=== PATIENT | female | born 1945 | race Caucasian/White ===

== ENCOUNTER → 2016-10-28 | Outpatient (CLI) | payer OTHER ==
[~2016-10-28] MED LIST: ACET-1256 PO; DICL1GEL28 TOP; HYDR25TA4 PO; LACT10CA3 PO; LISI40TA PO; MULT-506 PO; NAPR1TAB9 PO; PRLSR20 PO; SIMV40TA2 PO; WHEAPOW13 PO
[2016-10-28 13:34] LABS: BASO % 0.4 %; BASO ABS # 0.04 K/uL (0-0.2); COMPLETE YES; HEMATOCRIT 40.5 % (37-47); IG% 0.3 %; LYMPH ABS # 3.26 K/uL (1.2-3.4); MEAN CELL VOLUME 87.3 fL (80-100); MEAN CORPUSCULAR HEMOGLOBIN 30.6 pg (25-34); MEAN CORPUSCULAR HGB CONC 35.1 g/dl (32-36); MEAN PLATELET VOLUME 11.5 fL (7.4-10.4); MONO % 7.3 %; PLATELET COUNT 302 K/uL (130-400); RED BLOOD COUNT 4.64 M/uL (4.2-5.4); WHITE BLOOD COUNT 9.59 K/uL (4.8-10.8)
[2016-10-28 16:56] LABS: ALT/SGPT 35 U/L (12-78); AST/SGOT 19 U/L (15-37); BLOOD UREA NITROGEN 22 mg/dl (7-18); BUN/CREATININE RATIO 23.5 (10-20); CALCIUM 9.3 mg/dl (8.5-10.1); CARBON DIOXIDE 26 mmol/L (21-32); CHLORIDE 102 mmol/L (98-107); CREATININE 0.92 mg/dl (0.60-1.20); GLUCOSE 179 mg/dl (70-99); SODIUM 138 mmol/L (136-145)
[2016-10-28 17:07] LABS: ALB/GLOB RATIO 0.9 (0.9-2); ALKALINE PHOSPHATASE 99 U/L (45-117); CHOLESTEROL 170 mg/dl (0-200); CHOLESTEROL/HDL RATIO 2.4; HDL CHOLESTEROL 70 mg/dl; LDL CHOLESTEROL CALCULATED 75 mg/dl; THYROID STIMULATING HORMONE 0.798 uIu/ml (0.300-4.500); TRIGLYCERIDES 127 mg/dl (0-150); VERY LOW DENSITY LIPOPROT CALC 25 mg/dl
== END | disposition home or self-care (01) ==
LOC: C.LABBC 09:33
PROVIDERS: ATTEND Internal Medicine
DX: G89.4 Chronic pain syndrome (principal)

== ENCOUNTER → 2016-11-29 | Outpatient (CLI) | payer OTHER ==
--- NOTE | 2016-11-29 12:40 | MAMMOGRAPHY REPORT ---
UNILATERAL LEFT DIGITAL DIAGNOSTIC MAMMOGRAM TOMOSYNTHESIS WITH CAD AND TARGETED LEFT ULTRASOUND: CLINICAL HISTORY: 6 Month Follow-up Left. TECHNIQUE: Breast tomosynthesis in addition to standard 2D mammography was performed. Current study was also evaluated with a Computer Aided Detection (CAD) system. Left CC and MLO and XCCM and 2-D and tomosynthesis images were obtained. COMPARISON: Comparison is made to exams dated: 05/26/2016 ultrasound, 05/26/2016 mammogram, 05/21/2016 mammogram, 01/18/2013 mammogram, and 10/27/2010 mammogram - [facility]. BREAST COMPOSITION: There are scattered areas of fibroglandular density in the left breast. FINDINGS: Again noted in the left breast is a low-density round mass seen on the cc view, likely at approximately 12:00, not significantly changed. Other smaller round/oval circumscribed benign-appea ring masses are also seen on the tomosynthesis images in the left subareolar and medial breast, not significantly changed. The remainder of the left breast is stable mammographically compared to prio r exams, without suspicious masses, calcifications, or areas of architectural distortion noted. Sca ttered benign-appearing calcifications are stable. Targeted ultrasound was performed of the area of the previously seen masses. In the left breast at 12:00 subareolar region, there is an oval nearly anechoic circumscribed parallel mass which measures 8 x 3 x 8 mm. This is not significantly changed compared to the prior exam and likely corresponds with the mammographic mass and is consistent with a benign cyst. Another oval anechoic benign simpl e cyst is seen in the adjacent rest measuring 3 x 5 mm. In the left 9:00 periareolar region there i s a round circumscribed hypoechoic cystic-appearing 3 x 2 mm mass, not significantly changed and lik tere represents a cyst. In the left breast at 8:00 periareolar region, there is an oval hypoechoic c ystic appearing circumscribed 8 x 7 mm mass, consistent with a cyst. An adjacent smaller cyst measu ring 4 mm is noted. No suspicious solid masses were evident. IMPRESSION: ACR BI-RADS CATEGORY 2: BENIGN, TARGETED ULTRASOUND ACR BI-RADS CATEGORY 2: BENIGN Multiple small benign cysts seen within the left breast on ultrasound, one of which correlates with the stable mammographic mass. There is no mammographic or targeted sonographic evidence of malignan cy. Return to annual mammogram screening schedule is recommended, due May 2017. The patient has been verbally notified of the results. Approximately 10% of breast cancers are not detected with mammography. A negative mammographic repor t should not delay biopsy if a clinically suggestive mass is present. Christie Hardin M.D. ah/:11/29/2016 11:19:29 Computer Publisher: Kinsey YATES(R)(M), [facility] letter sent: Normal 1/2 BI-RADS Code: ACR BI-RADS Category 2: Benign Ultrasound BI-RADS: ACR BI-RADS Category 2: Benign
== END | disposition home or self-care (01) ==
LOC: C.MAMM 09:26
PROVIDERS: ATTEND Internal Medicine
DX: Z09 Encounter for follow-up examination after completed treatment for conditions other than malignant neoplasm (principal); N60.02 Solitary cyst of left breast

== ENCOUNTER → 2017-06-07 | Outpatient (CLI) | payer OTHER ==
--- NOTE | 2017-06-08 15:59 | MAMMOGRAPHY REPORT ---
BILATERAL DIGITAL SCREENING MAMMOGRAM TOMOSYNTHESIS WITH CAD: 06/07/2017 CLINICAL HISTORY: Routine screening. Patient has no complaints. TECHNIQUE: Breast tomosynthesis in addition to standard 2D mammography was performed. Current study was also evaluated with a Computer Aided Detection (CAD) system. COMPARISON: Comparison is made to exams dated: 11/29/2016 mammogram, 05/21/2016 mammogram, 01/18/2013 nona mogram, 10/27/2010 mammogram, 09/05/2002 mammogram, and 08/29/1997 mammogram - [facility] enter. BREAST COMPOSITION: There are scattered areas of fibroglandular density in both breasts. FINDINGS: There are stable asymmetries in the left breast, and scattered benign-appearing calcificat ions in both breasts. No new suspicious mass, architectural distortion or cluster of microcalcificat ions is seen. IMPRESSION: ACR BI-RADS CATEGORY 1: NEGATIVE There is no mammographic evidence of malignancy. A 1 year screening mammogram is recommended. The pa tient will receive written notification of the results. Approximately 10% of breast cancers are not detected with mammography. A negative mammographic report should not delay biopsy if a clinically suggestive mass is present. Mindy Truong M.D. ay/:06/07/2017 17:56:45 Chimney Supervisor Brick: Kamille WHITTEN)(M), [facility] letter sent: Normal 1/2 BI-RADS Code: ACR BI-RADS Category 1: Negative
== END | disposition home or self-care (01) ==
LOC: C.MAMM 10:14
PROVIDERS: ATTEND Internal Medicine
DX: Z12.31 Encounter for screening mammogram for malignant neoplasm of breast (principal)

== ENCOUNTER → 2017-09-19 | Outpatient (CLI) | payer OTHER ==
[2017-09-19 11:42] LABS: ESTIMATED AVERAGE GLUCOSE 309 mg/dl; HA1C FLAG Normal (Normal)
[2017-09-19 14:50] LABS: ALT/SGPT 36 U/L (12-78); AST/SGOT 21 U/L (15-37); BLOOD UREA NITROGEN 19 mg/dl (7-18); BUN/CREATININE RATIO 20.2 (10-20); CALCIUM 9.1 mg/dl (8.5-10.1); CARBON DIOXIDE 27 mmol/L (21-32); CHLORIDE 95 mmol/L (98-107); CREATININE 0.94 mg/dl (0.60-1.20); GLUCOSE 320 mg/dl (70-99); SODIUM 128 mmol/L (136-145)
[2017-09-19 14:52] LABS: ALB/GLOB RATIO 0.8 (0.9-2); CHOLESTEROL 157 mg/dl (0-200); TRIGLYCERIDES 121 mg/dl (0-150); VERY LOW DENSITY LIPOPROT CALC 24 mg/dl
[2017-09-19 14:59] LABS: ALKALINE PHOSPHATASE 86 U/L (45-117); BETA-HYDROXYBUTYRATE 1.43 mg/dL (0.2-2.81); CHOLESTEROL/HDL RATIO 2.7; HDL CHOLESTEROL 59 mg/dl; LDL CHOLESTEROL CALCULATED 74 mg/dl
== END | disposition home or self-care (01) ==
LOC: C.LABBC 09:16
PROVIDERS: ATTEND Internal Medicine
DX: R73.9 Hyperglycemia, unspecified (principal)

== ENCOUNTER → 2017-11-17 | Outpatient (CLI) | payer OTHER ==
[2017-11-17 14:08] LABS: CREATININE RANDOM URINE 26.6 mg/dl
== END | disposition home or self-care (01) ==
LOC: C.LAB1850 11:51
PROVIDERS: ATTEND Internal Medicine Endocrinology, Diabetes & Metabolism
DX: E11.65 Type 2 diabetes mellitus with hyperglycemia (principal)

== ENCOUNTER → 2018-02-15 | Outpatient (CLI) | payer OTHER ==
[2018-02-15 12:15] LABS: HEMOGLOBIN A1C 6.7 % (4.5-5.6)
== END | disposition home or self-care (01) ==
LOC: C.LAB1850 09:45
PROVIDERS: ATTEND Internal Medicine Endocrinology, Diabetes & Metabolism
DX: E11.65 Type 2 diabetes mellitus with hyperglycemia (principal)

== ENCOUNTER 2022-08-17 15:29 | Inpatient (IN) ==
[2022-08-17 16:41] LABS: Basophils # (auto) 0.07 K/uL (0-0.2); Basophils % (auto) 0.7 %; Eosinophils # (auto) 0.09 K/uL (0-0.50); Eosinophils % (auto) 0.9 %; Hematocrit (blood only) 38.9 % (34.1-44.9); Hemoglobin 13.5 g/dl (12.0-16.0); Immature Granulocytes # (auto) 0.04 K/uL (0.00-0.02); Immature Granulocytes % (auto) 0.4 %; Lymphocytes # (auto) 2.12 K/uL (1.2-3.4); Mean Corpuscular Hemoglobin 29.2 pg (25.0-34.0); Mean Corpuscular Hgb Conc 34.7 g/dL (32.0-36.0); Mean Corpuscular Volume 84.2 fL (80.0-100.0); Mean Platelet Volume 9.4 fL (9.4-12.3); Monocytes % (auto) 9.9 %; Neutrophils # (auto) 6.76 K/uL (1.4-6.5); Neutrophils % (auto) 67.1 %; Platelet Count 390 K/uL (130-400); RDW Coefficient of Variation 12.9 % (11.5-14.5); RDW Standard Deviation 39.8 fL (36.4-46.3); Red Blood Count 4.62 M/uL (3.93-5.22); White Blood Count 10.08 K/ul (4.8-10.8)
[2022-08-17 16:54] LABS: Partial Thromboplastin Ratio 1.1; Partial Thromboplastin Time 29.2 Seconds (21.0-31.0); Prothrombin Time 10.8 Seconds (9.0-12.0)
[2022-08-17 17:03] LABS: Albumin Globulin Ratio 1.2 (0.9-2); Albumin Level 4.1 gm/dl (3.4-5.0); BUN Creatinine Ratio 23.9 (10-20); Bilirubin,Total 0.6 mg/dl (0.2-1.0); Calcium 10.2 mg/dl (8.5-10.1); Creatinine Clr Calc Pharmacy 71.6 ml/min; Est GFR (African American) 96.9 ml/min; Est GFR (Non-African American) 83.6 ml/min; Globulin 3.3 gm/dl (2.5-4.0); Potassium 4.3 mmol/L (3.5-5.1); Total Protein 7.4 gm/dl (6.0-8.3)
[2022-08-17] MEDS ORDERED: SODIUM CHLORIDE 0.9% 1000ML 1,000 ML IV ONE (19:13)
[2022-08-17] MEDS ORDERED: MoRPHine SULFATE 4 MG/ML 1 ML CARP\\VIAL IV STA (19:21)
[2022-08-17] MEDS ORDERED: ONDANSETRON INJ 2 MG/ML 2 ML VIAL IV STA (19:21)
--- NOTE | 2022-08-17 19:24 | Emergency Department Note ---
Impression & Plan Pathologic lumbar vertebral fracture, Liver lesion, Acute hyponatremia, Metastatic cancer ED Provider Note NAME: WINNIE THOMSON AGE: 77 SEX: F : 1945 ARRIVES VIA: Walk-In INFORMANT: Patient ED PROVIDER(S): Brain Stern DO CHIEF COMPLAINT: weak and back pain HPI: Patient is a 77-year-old female with a past medical history of IVAN, CKD, tubular adenoma of the colon, history of smoking, diabetes, hyperlipidemia, hypertension who presents the ER referred by PCP. Patient has been having back pain and had a CT done which showed likely metastatic disease of uncertain etiology. There is a pathological fracture of L5. She denies any headache or change in vision. No chest pain or shortness of breath. Her pain is in her bilateral back. Has been there for the past 4 to 5 months and worsening. Now is on both sides. Currently at 8 out of 10. Denies any weakness or numbness in the legs. No dysuria, urgency, or frequency. No other exacerbating or remitting factors. ROS: See above HPI for pertinent positives & negatives. A total of 10 systems reviewed and were otherwise negative. PAST MEDICAL HISTORY:See Below PAST SURGICAL HISTORY:See Below FAMILY HISTORY:See Below SOCIAL HISTORY:See Below HOME MEDICATIONS:See Below ALLERGIES:See Below VITALS:See Below PHYSICAL EXAMINATION: GENERAL: Sitting up in bed, alert, well appearing, well nourished, no distress, non-toxic EYE EXAM: normal conjunctiva. OROPHARYNX: no exudate, no erythema, lips, buccal mucosa, and tongue normal and mucous membranes are moist NECK: supple, no nuchal rigidity, no adenopathy, non-tender LUNGS: Clear to auscultation. Normal chest wall mechanics HEART: no murmurs, S1 normal and S2 normal ABDOMEN: abdomen soft, non-tender, normo-active bowel sounds, no masses, no rebound or guarding. BACK: Back is symmetrical on inspection and there is no deformity, no midline tenderness, no CVA tenderness. SKIN: no rashes and no bruising UPPER EXTREMITIES: upper extremities are grossly normal. LOWER EXTREMITIES: Flexion-extension hips, knees intact as patient ambulates without difficulty but hunched over NEURO EXAM: Normal sensorium, cranial nerves II-XII grossly intact, normal speech, no gross weakness of arms, no gross weakness of legs. MEDICAL DECISION MAKING: Patient is a 77-year-old female who presents the ER for possible metastatic cancer with a pathological fracture at L5 and hyponatremia referred in by PCP. IV was established blood work is obtained. Labs show no significant leukocytosis or anemia. INR unremarkable. BMP with mild hyponatremia 126. LFTs bilirubin was unremarkable. UA was contaminated but no urinary symptoms. Will not treat at this time. CTs were reviewed as an outpatient and showed liver lesions and likely metastatic disease. Patient was well aware of this. She was updated at bedside discussed with Dr. Ana Elkins for further evaluation. Triage Nursing notes reviewed. Limited review of prior medical records performed Vital Signs: reviewed and remarkable for HTN and tachy Differential diagnosis: Differential diagnoses includes but is not limited to lumbar radiculopathy, kidney stone, muscle strain, facture, cauda equina, mass, and disc herniation. ER treatment provided: See below Diagnostics interpreted by me: ECG: none Cardiac Monitoring: An order was placed for continuous cardiac monitoring. The monitor shows a rate of 80 with sinus rhythm. Laboratory studies: As stated above and show below. Imaging studies: CTs were reviewed in our system Consultation(s): Discussed with Ana Elkins for further evaluation Procedures: none Critical Care: None Past Med/Surg History Medical History (Updated 08/18/22 @ 00:55 by Brain Stern DO) Alcohol intoxication Blood loss History of cigarette smoking Hyperlipidemia Hypertension Hypotension Open tibial fracture Sensorineural hearing loss of both ears Type 2 diabetes mellitus Surgical History History of ankle surgery broken ankle-2014 at [facility] History of appendectomy History of hemicolectomy January 2016--[facility] History of tonsillectomy History of tubal ligation Family History Sister Primary adenocarcinoma of vagina Father Asthma Hypertension Macular degeneration Pulmonary embolism Mother Emphysema lung Brother Macular degeneration Denies family history of Ovarian cancer Prostate cancer Myocardial infarction Breast cancer Colorectal cancer Social History Smoking Status: Former smoker Tobacco Type: Cigarettes packs per day: 2; Years Smoked: 45; Smoking End Date: quit 7 years ago; Second Hand Exposure: No; Hx Alcohol Use: No (stopped 7 years ago) Hx Substance Use: No Preferred Language: Urdu Communication Ability: Effective Visual Impairment: Limited Hearing Ability: Normal Campus Recruiter Required: No Beliefs That Will Affect Care: None marital status: Current Living Situation: Spouse current occupational status: retired How many Children do You have: 2 Other Information That Helps Us Care for You: No Feels Safe at Home: Yes Safety Concerns: Feels Safe At This Time Childhood Exposure to Second-Hand Smoke: Yes caffeine: Yes (coffee 4 cups a day ) Dental Care, Regularly: Yes Physical Activity Frequency: Daily Physical Activity Frequency Comment: bicycle Seatbelt Use: always Sunscreen Use: Yes Assistive Devices: Cane, Glasses, Hearing Aid - Bilateral, Hearing Aid - Left and Walker Allergies Allergies Allergy/AdvReac Type Severity Reaction Status Date / Time No Known Allergies Allergy Verified 08/17/22 07:42 Home Meds Home Medications Medication Instructions Recorded Confirmed Lactobacillus rhamnosus GG 10 1 cap PO QAM 10/15/19 08/17/22 billion cell capsule (Culturelle) acetaminophen 500 mg tablet 1,000 mg PO QID PRN Fever Or Pain 10/15/19 08/17/22 (Tylenol Extra Strength) cranberry extract 200 mg capsule 400 mg PO DAILY 12/09/20 08/17/22 lisinopril 40 mg tablet 40 mg PO DAILY 08/17/22 08/17/22 metformin 500 mg tablet,extended 1,000 mg PO BID 08/17/22 08/17/22 release 24 hr Previous Rx's Medication Instructions Recorded simvastatin 40 mg tablet (Zocor) 40 mg PO QPM #90 tabs 09/28/21 omeprazole 20 mg capsule,delayed 20 mg PO QAM #90 caps 10/21/21 release blood sugar diagnostic (OneTouch #100 ea 11/16/21 Verio test strips) OneTouch Delica Lancets 33 gauge #100 ea 07/19/22 (lancets) Results & Data (ED) Vital Signs Vital Signs - 24 hr 08/17/22 15:31 08/17/22 19:37 Temperature 36.7 C Temperature Source Temporal Artery Scan Pulse Rate 110 H Pulse Rate [Finger] 81 Pulse Rhythm [Finger] Regular Pulse Strength [Finger] Normal Respiratory Rate 20 20 Respiratory Effort / Characteristics Non-Labored Non-Labored Spontaneous Respiratory Depth Normal Normal Respiratory Pattern Regular Blood Pressure 174/88 H Blood Pressure [Right Arm] 130/65 Blood Pressure Mean 116 Blood Pressure Mean [Right Arm] 86 Blood Pressure Position [Right Arm] Lying Pulse Oximetry 94 96 Oxygen Delivery Method Room Air Room Air Sepsis Recent Fever Within 48 Hours No Sepsis New/Unexplained Change in Mental Status N/A Sepsis Action Taken by Nursing No Action Required Laboratory Data Result diagrams: 08/17/22 16:29 08/17/22 16:29 Lab Results 08/17/22 08/17/22 08/17/22 Range/Units 16:29 16:29 16:29 WBC 10.08 (4.8-10.8) K/ul RBC 4.62 (3.93-5.22) M/uL Hgb 13.5 (12.0-16.0) g/dl Hct 38.9 (34.1-44.9) % MCV 84.2 (80.0-100.0) fL MCH 29.2 (25.0-34.0) pg MCHC 34.7 (32.0-36.0) g/dL RDW Std Deviation 39.8 (36.4-46.3) fL RDW Coeff of Charlie 12.9 (11.5-14.5) % Plt Count 390 (130-400) K/uL MPV 9.4 (9.4-12.3) fL Immature Gran % (Auto) 0.4 % Neut % (Auto) 67.1 % Lymph % (Auto) 21.0 % Harnett % (Auto) 9.9 % Eos % (Auto) 0.9 % Baso % (Auto) 0.7 % Neut # (Auto) 6.76 H (1.4-6.5) K/uL Lymph # (Auto) 2.12 (1.2-3.4) K/uL Harnett # (Auto) 1.00 H (0.24-0.82) K/uL Eos # (Auto) 0.09 (0-0.50) K/uL Baso # (Auto) 0.07 (0-0.2) K/uL Immature Gran # (Auto) 0.04 H (0.00-0.02) K/uL PT 10.8 (9.0-12.0) Seconds INR 1.0 (0.9-1.1) APTT 29.2 (21.0-31.0) Seconds PTT Ratio 1.1 Sodium 126 L (136-145) mmol/L Potassium 4.3 (3.5-5.1) mmol/L Chloride 92 L (98-107) mmol/L Carbon Dioxide 27 (21-32) mmol/L Anion Gap 7 (3-11) BUN 16 (6-23) mg/dl Creatinine 0.67 (0.6-1.2) mg/dl Est Cr Clr Drug Dosing 71.6 ml/min Est GFR ( Amer) 96.9 ml/min Est GFR (Non-Af Amer) 83.6 ml/min BUN/Creatinine Ratio 23.9 H (10-20) Glucose 152 H (70-99(Fasting)) mg/dl Osmolality (280-300) mOsm/kg Calcium 10.2 H (8.5-10.1) mg/dl Total Bilirubin 0.6 (0.2-1.0) mg/dl AST 39 (13-39) U/L ALT 29 (7-52) U/L Alkaline Phosphatase 105 H (34-104) U/L Total Protein 7.4 (6.0-8.3) gm/dl Albumin 4.1 (3.4-5.0) gm/dl Globulin 3.3 (2.5-4.0) gm/dl Albumin/Globulin Ratio 1.2 (0.9-2) SARS-CoV-2, RNA, NAAT (NEGATIVE) 08/17/22 08/17/22 Range/Units 16:29 19:31 WBC (4.8-10.8) K/ul RBC (3.93-5.22) M/uL Hgb (12.0-16.0) g/dl Hct (34.1-44.9) % MCV (80.0-100.0) fL MCH (25.0-34.0) pg MCHC (32.0-36.0) g/dL RDW Std Deviation (36.4-46.3) fL RDW Coeff of Charlie (11.5-14.5) % Plt Count (130-400) K/uL MPV (9.4-12.3) fL Immature Gran % (Auto) % Neut % (Auto) % Lymph % (Auto) % Harnett % (Auto) % Eos % (Auto) % Baso % (Auto) % Neut # (Auto) (1.4-6.5) K/uL Lymph # (Auto) (1.2-3.4) K/uL Harnett # (Auto) (0.24-0.82) K/uL Eos # (Auto) (0-0.50) K/uL Baso # (Auto) (0-0.2) K/uL Immature Gran # (Auto) (0.00-0.02) K/uL PT (9.0-12.0) Seconds INR (0.9-1.1) APTT (21.0-31.0) Seconds PTT Ratio Sodium (136-145) mmol/L Potassium (3.5-5.1) mmol/L Chloride (98-107) mmol/L Carbon Dioxide (21-32) mmol/L Anion Gap (3-11) BUN (6-23) mg/dl Creatinine (0.6-1.2) mg/dl Est Cr Clr Drug Dosing ml/min Est GFR ( Amer) ml/min Est GFR (Non-Af Amer) ml/min BUN/Creatinine Ratio (10-20) Glucose (70-99(Fasting)) mg/dl Osmolality 271 L (280-300) mOsm/kg Calcium (8.5-10.1) mg/dl Total Bilirubin (0.2-1.0) mg/dl AST (13-39) U/L ALT (7-52) U/L Alkaline Phosphatase (34-104) U/L Total Protein (6.0-8.3) gm/dl Albumin (3.4-5.0) gm/dl Globulin (2.5-4.0) gm/dl Albumin/Globulin Ratio (0.9-2) SARS-CoV-2, RNA, NAAT NEGATIVE (NEGATIVE) Administered Medications Enoxaparin Sodium (Enoxaparin Inj 40 Mg/0.4 Ml Syr) 40 mg SQ Q12H ERNESTO Stop: 09/16/22 21:59 Last Admin: 08/17/22 23:11 Dose: Not Given Documented By: LMP Insulin Aspart (Insulin Aspart Per Unit) 0 units SC ACHS ERNESTO Stop: 09/16/22 21:58 Last Admin: 08/17/22 22:51 Dose: Not Given Documented By: LMP Insulin Glargine (Lantus Per Unit Charge) 5 units SQ BID ERNESTO Stop: 09/16/22 21:58 Last Admin: 08/17/22 22:51 Dose: Not Given Documented By: LMP Simvastatin (Simvastatin 40 Mg Tab) 40 mg PO QPM ERNESTO Stop: 09/16/22 21:58 Last Admin: 08/17/22 23:11 Dose: 40 mg Documented By: LMP Discontinued Medications Sodium Chloride (Nss 1000ml) 1,000 mls @ 999 mls/hr IV .Q1H1M ONE Stop: 08/17/22 20:13 Last Infusion: 08/17/22 20:48 Dose: 0 mls/hr Documented By: Admin: 08/17/22 19:44 Dose: 999 mls/hr Documented By: CYNDI Morphine Sulfate (Morphine Sulfate 4 Mg/Ml 1 Ml Carp\Vial) 4 mg IV NOW STA Stop: 08/17/22 19:22 Last Admin: 08/17/22 19:28 Dose: 4 mg Documented By: CYNDI Ondansetron HCl (Ondansetron Inj 2 Mg/Ml 2 Ml Vial) 4 mg IV NOW STA Stop: 08/17/22 19:22 Last Admin: 08/17/22 19:28 Dose: 4 mg Documented By: CYNDI Discharge Plan Visit Data Chief Complaint: Abdominal Pain Stated Complaint: REFERRED BY , BACK PAIN, FATIGUED ED Provider: Brain Stern Discharge Problem: Pathologic lumbar vertebral fracture, Liver lesion, Acute hyponatremia, Metastatic cancer Patient Disposition: Admitted As Inpatient Discharge Instructions Interventions: ED Discharge Assessment Last Done: 08/17/22 21:31
--- NOTE | 2022-08-17 19:49 | History & Physical Report ---
Date of Service August 17, 2022 Assessment & Plan (1) Liver lesion: Plan: -Admit to med/Surge -Patient is currently afebrile, hemodynamically stable, and stable on RA -New liver lesions noted on CT of the abdomen and pelvis from today along with pathologic L5 vertebral fracture -Primary source is unknown at this time, will wait until tomorrow for further CT imaging as she had contrast with her CT abd/pelvis today -Placed oncology and rad onc consults for assistance with continued workup and treatment -AM CBC and BMP (2) Pathologic lumbar vertebral fracture: Plan: -Noted on CT today -Pain is currently well-controlled after IV morphine in the ED -No red flag symptoms -Will continue with tramadol for pain of 1,2,3 and morphine 2mg IV q4h prn for pain of 4,5,6 + -Will keep on bedrest overnight until she can be evaluated by Dr. Stevenson tomorrow, consult placed (3) Hyponatremia: Plan: -Noted to initially be 123 on labs ordered by PCP, improved to 126 with repeat labs by the ED, has been asymptomatic -Based on her history her hyponatremia is mostly likely associated with her poor oral intake, increased water intake at home, and possible SIADH from pain and current cancer -Received 1L NSS in the ED, will hold additional IV fluids and free water for now -Ordered serum osmolality, urine osmolality, and urine sodium, follow up in the am -Will obtain a repeat sodium tonight to ensure she is not overcorrecting too quickly, otherwise monitor AM BMP (4) Type 2 diabetes mellitus: Plan: -Hold metformin -Will start with lantus, 5 units BID -Correction factor of 50 -Adjust regimen as needed (5) Hyperlipidemia: Plan: -Continue statin (6) Hypertension: Plan: -Continue lisinopril Plan The patient was discussed with Dr. 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 Miramontes's office for continued workup of hyponatremia and new cancer. Per the clinic note from today, the patient initially presented to the clinic for acute low back pain. It had been ongoing for approximately 3 weeks. She has associated pain with changing positions, the pain radiates into her left femur/lateral hip, no recent trauma, recent [address] Miramontes ordered a CBC, CMP, UA, XR L hip/pelvis, and CT of the abd/pelvis w & wo contrast at their visit today. The workup from today has revealed new hyp onatremia initially at 123, improved to 126 in ED labs, calcium of 10.2, alk phos of 105. XR of the left hip/pelvis was negative for acute findings. Unfortunately, CT of the abdomen/pelvis revealed "Numerous rim-enhancing hypodense lesions in the liver are concerning for metastatic disease in this patient status post hemicolectomy. Correlation with prior imaging is recommended. If further evaluation is desired, tissue sampling versus MRI liver mass protocol can be performed. No evidence of diverticulitis. Nonobstructive nephrolithiasis is seen. There is nodularity of the adrenal glands bilaterally, nonspecific. Thickening of the gastric wall may be secondary to underdistention, clinical correlation for gastritis is recommended. Addendum shows "There is a lytic lesion arising from the right aspect of the L5 vertebral body with an associated soft tissue mass and pathologic fracture.". Prior to admission the patient was given 4 mg IV morphine and 4 mg IV zofran, and 1L NSS bolus. At the time of the exam the patient was resting comfortably in bed in no acute distress with her and Son sitting bedside. She states that she began experiencing low back pain which radiates in to her left hip/thigh. She states that this began approximately one month ago and continued to get worse. She denies saddle anesthesia, loss of bowel or bladder function, and numbness/tingling in her buttocks, groin, and legs. She uses a cane to ambulate but ambulation has become more difficult due to the pain. She noted an approximate 15 lb weight loss over the past month. She states that she has lost her appetite and does not eat much solid food over the past month, she has been trying to drink lost of water. She notes that she has been urinating less frequently recently and thought that was odd as she normally urinates every 2 hours due to her DM. She denies dysuria and hematuria and feels as though she is able to empty her bladder when she goes. Her normal bowel habits are having a normal bowel movement then followed by a watery BM approximately an hour after, this has been her norm since her previous hemicolectomy. She has not smoked or had a drink of alcohol in the past 7 years. She denies recent fevers, chills, headache, changes in vision, hearing, taste, and smell, chest pain, SOB, abdominal pain, nausea, vomiting, melena, bloody bowel movements and recent falls. I spoke to her about the recent CT findings being concerning for malignancy, but we need to continue her workup to determine the primary source, she acknowledged undertsanding. I spoke to her regarding code status, she would like to be a Full Code at this time. If she cannot make decisions for herself then her Daughter/POA (Ludmila Elizabeth [phone]) would make decisions for her. Allergies Allergy/AdvReac Type Severity Reaction Status Date / Time No Known Allergies Allergy Verified 08/17/22 07:42 Home Medications Medication Instructions Recorded Confirmed Type Lactobacillus rhamnosus GG 10 1 cap PO QAM 10/15/19 08/17/22 History billion cell capsule (Culturelle) acetaminophen 500 mg tablet 1,000 mg PO QID PRN Fever Or Pain 10/15/19 08/17/22 History (Tylenol Extra Strength) cranberry extract 200 mg capsule 400 mg PO DAILY 12/09/20 08/17/22 History simvastatin 40 mg tablet (Zocor) 40 mg PO QPM #90 tabs 09/28/21 08/17/22 Rx omeprazole 20 mg capsule,delayed 20 mg PO QAM #90 caps 10/21/21 08/17/22 Rx release blood sugar diagnostic (OneTouch #100 ea 11/16/21 08/17/22 Rx Verio test strips) OneTouch Delica Lancets 33 gauge #100 ea 07/19/22 08/17/22 Rx (lancets) lisinopril 40 mg tablet 40 mg PO DAILY 08/17/22 08/17/22 History metformin 500 mg tablet,extended 1,000 mg PO BID 08/17/22 08/17/22 History release 24 hr Past Med/Surg History Medical History (Updated 08/18/22 @ 00:55 by Brain M Stern, DO) Alcohol intoxication Blood loss History of cigarette smoking Hyperlipidemia Hypertension Hypotension Open tibial fracture Sensorineural hearing loss of both ears Type 2 diabetes mellitus Surgical History History of ankle surgery broken ankle-2014 at [facility] History of appendectomy History of hemicolectomy January 2016--[facility] [place] History of tonsillectomy History of tubal ligation Family History Sister Primary adenocarcinoma of vagina Father Asthma Hypertension Macular degeneration Pulmonary embolism Mother Emphysema lung Brother Macular degeneration Denies family history of Ovarian cancer Prostate cancer Myocardial infarction Breast cancer Colorectal cancer Social History Smoking Status: Former smoker Tobacco Type: Cigarettes packs per day: 2; Years Smoked: 45; Smoking End Date: quit 7 years ago; Second Hand Exposure: No; Hx Alcohol Use: No (stopped 7 years ago) Hx Substance Use: No Preferred Language: Cymraes Communication Ability: Effective Visual Impairment: Limited Hearing Ability: Normal Armorer Technician Required: No Beliefs That Will Affect Care: None marital status: Current Living Situation: Spouse current occupational status: retired How many Children do You have: 2 Other Information That Helps Us Care for You: No Feels Safe at Home: Yes Safety Concerns: Feels Safe At This Time Childhood Exposure to Second-Hand Smoke: Yes caffeine: Yes (coffee 4 cups a day ) Dental Care, Regularly: Yes Physical Activity Frequency: Daily Physical Activity Frequency Comment: bicycle Seatbelt Use: always Sunscreen Use: Yes Assistive Devices: Cane, Glasses, Hearing Aid - Bilateral, Hearing Aid - Left and Walker Review of Systems Review of Systems: Denies current fever, chills, headache, changes in vision, hearing, taste, and smell, chest pain, SOB, cough, abdominal pain, nausea, vomiting, diarrhea, hematemesis, melena, dysuria, hematuria, and recent falls. All systems have been reviewed and are otherwise negative. Physical Exam 2 Physical Exam: Physical Exam: General: In no acute distress, stated age, well-nourished, good hygiene HEENT: Normocephalic, atraumatic, no scleral icterus, pupils around round, symmetrical, and reactive to light, moist mucus membranes, trachea midline, no thyromegaly Chest/Pulm: No respiratory distress, symmetrical chest expansion, scattered expiratory wheezing Cardiac: RRR, no murmurs noted Abdomen: Negative for ascites and bruising, normoactive bowel sounds, soft, non-tender to palpation throughout Musculoskeletal: Patient is tender to palpation over the lower back, symmetrical ROM of the BL UEs, LLE with decreased hip flexion compared to right due to pain Extremities: Radial, dorsalis pedis, and posterior tibial pulses are intact and symmetrical, no edema noted in the BL LE's Skin: Warm, dry, no rashes , lesions, or scars noted Neuro: Alert and oriented to person, place, month, year, and president, no focal defects, CN II-XII tested and intact, finger to nose test negative, no tremors noted Psych: No acute distress, calm and cooperative during the exam Results & Data Results & Data ([facility]) Vital Signs (Past 12 Hours) Vital Signs Temp Pulse Resp BP Pulse Ox O2 Del Method 08/17/22 15:31 36.7 C 110 H 20 174/88 H 94 Room Air Laboratory Results Abnormal lab results 08/17/22 08/17/22 Range/Units 16:29 16:29 Neut # (Auto) 6.76 H (1.4-6.5) K/uL Dupage # (Auto) 1.00 H (0.24-0.82) K/uL Immature Gran # (Auto) 0.04 H (0.00-0.02) K/uL Sodium 126 L (136-145) mmol/L Chloride 92 L (98-107) mmol/L BUN/Creatinine Ratio 23.9 H (10-20) Glucose 152 H (70-99(Fasting)) mg/dl Calcium 10.2 H (8.5-10.1) mg/dl Alkaline Phosphatase 105 H (34-104) U/L Diagnostic Findings ADDENDUM There is a lytic lesion arising from the right aspect of the L5 vertebral body with an associated soft tissue mass and pathologic fracture. Electronically signed by: Edison Montana M.D. 08/17/2022 2:[address] abd pelvis IV con only CLINICAL HISTORY: LLQ/L low back pain, wt loss, h/o SSA/hemicolectom TECHNIQUE: Helical axial images of the abdomen and pelvis were obtained and displayed. Automated dose lowering techniques and/or adjustment according to patient size were utilized for this exam. This exam was performed with intravenous contrast. CT DOSE: 983.81 mGycm COMPARISON: None available at the time of this dictation. FINDINGS: Lower chest: Mitral annular calcification and atherosclerotic changes of the coronary arteries are seen. Peripheral interstitial thickening of the lungs is noted. Liver: Numerous rim-enhancing hypodense lesions are seen in the liver, some of which distort the contour of the liver capsule. Largest measures 15 mm in diameter in the right lobe. Gallbladder and biliary tree: Cholelithiasis is seen without evidence of cholecystitis. A small amount of pericholecystic fluid is seen in the tip. No intra- or extrahepatic biliary ductal dilation. Pancreas: Unremarkable, no focal lesions. Spleen: Unremarkable. Adrenals: Nodularity of the adrenal glands noted bilaterally. Kidneys and ureters: Unremarkable. Bladder: Unremarkable. Reproductive organs: Multiple fibroids are seen. Bowel: Patient is status post right hemicolectomy. The stomach is under distended with prominence of the cardia and fundal wall. Lymph nodes Retroperitoneal: Unremarkable. Pelvic: Unremarkable. Mesenteric: Unremarkable. Peritoneum: Normal. Vessels: Atherosclerotic calcifications are seen. Abdominal wall: A fat-containing umbilical hernia is seen. Bones: Degenerative changes in the visualized spine. IMPRESSION: 1. Numerous rim-enhancing hypodense lesions in the liver are concerning for metastatic disease in this patient status post hemicolectomy. Correlation with prior imaging is recommended. If further evaluation is desired, tissue sampling versus MRI liver mass protocol can be performed. 2. No evidence of diverticulitis. Nonobstructive nephrolithiasis is seen 3. There is nodularity of the adrenal glands bilaterally, nonspecific. 4. Thickening of the gastric wall may be secondary to underdistention, clinical correlation for gastritis is recommended. ACT 112: Negative or not required by law. Electronically signed by: Edison Montana M.D. 08/17/2022 12:27 PM Dictated:08/17/22 1208 Transcribed: 08/17/22 1208 [place], [place] [phone] XRay Report Patient:WINNIE ELIZABETH Admit Date:08/17/22 MR#:[id number] Address1:[address] [facility] Acct ID:[id number] Address2: Date:1945 [facility] Zip:[place] [address] Age:77 Location:[facility] Sex:F Room/Bed: Att Phy:Shanti Watts MD Diagnosis:L low back/hip/upper femur pain Amanda Phy:Delbert Miramontes MD Service Date:08/17/22 Fam Phy: Interpreting Phy:Elan Dotson MDAdmit Phy: Ordering Phy:Shanti Watts MD cc: ~ XR hip LT 2V w pelvis CLINICAL HISTORY: Left low back/hip/upper femur pain COMPARISON: None FINDINGS: Calcified fibroid is incidentally noted. No acute fracture within the pelvis or hips is identified. There is mild bilateral hip osteoarthritis. IMPRESSION: 1. No acute fracture within the pelvis or hips. 2. Mild bilateral hip osteoarthritis. ACT 112: Negative or not required by law. Electronically signed by: Elan Dotson M.D. 08/17/2022 2:23 PM Dictated:08/17/22 1413 Transcribed: 08/17/22 1418 ECG Additional Comments: No ECG available at the time of the admission Code Status & VTE Plan Code Status Full code VTE Prophylaxis Plan VTE Prophylaxis will be ordered: Yes Supervising Physician Co-Signing Physician Notes Patient seen and examined, chart reviewed, case discussed with JULIA Storm and I agree with the assessment and plan as above. In brief, patient is a 77yo female with history of tubular adenoma with villous component, high grade dysplasia s/p right hemicolectomy on 02/09/2016 presents with back pain ongoing for the last several months. CT obtained with concern for multiple liver lesions suggestive of metastatic disease as well as pathologic fracture of L5 with L5 soft tissue mass Findings concerning for malignancy. Patient also endorses unintentional weight loss. On exam she is resting comfortably, some pain in her back still. No additional complaints +S1/S2, regular, no m/r/g Lungs CTA Abd soft, NT/ND, no RUQ pain Ext - warm, well perfused Labs and images reviewed Assessment/Plan Concerning findings for new malignancy - ?colon as primary given patient's history of dysplastic polyps, ?lung given history of smoking. No neurologic complaints in regards to pathological fracture of L5 -Bedrest, Neuro checks -Radiation Oncology consultation appreciated -Oncology consultation appreciated -Staging imaging - CT chest ordered -Remainder as above PG Care Time/CCT Total # of Minutes Spent Total Time Spent with Patient: Total time spent is greater than 50% in coordination of care (as documented) at patient's floor/unit and/or counseling patient: C[place] [address] Initial Inpt Care Lvl 2 Patient Type Established Medical Decision Making Moderate Complexity Diagnoses Liver lesion K76.9 Pathologic lumbar vertebral fracture M84.48XA Hyponatremia E87.1 Type 2 diabetes mellitus E11.9 Hyperlipidemia E78.5 Hypertension I10
[2022-08-17] MEDS ORDERED: CARBOHYDRATES FOR HYPOGLYCEMIA PO PRN (21:59)
[2022-08-17] MEDS ORDERED: ACETAMINOPHEN 325 MG TAB PO PRN (21:59)
[2022-08-17] MEDS ORDERED: GLUCOSE 10 TAB/TUBE PO PRN (21:59)
[2022-08-17] MEDS ORDERED: GLUCAGON FOR INJ 1 MG VIAL SQ PRN (21:59)
[2022-08-17] MEDS ORDERED: DEXTROSE 50% 50 ML SYRINGE IV PRN (21:59)
[2022-08-17] MEDS ORDERED: GLUCOSE 40% GEL 15 GM TUBE PO PRN (21:59)
[2022-08-17] MEDS: LANTUS PER UNIT CHARGE SQ SCH (22:51)
[2022-08-17] MEDS: INSULIN ASPART PER UNIT SC SCH (22:51)
[2022-08-17] MEDS: SIMVASTATIN 40 MG TAB PO SCH (23:11)
[2022-08-17] MEDS: ENOXAPARIN INJ 40 MG/0.4 ML SYR SQ SCH (23:11)
[2022-08-18 00:23] LABS: Appearance Urine Cloudy (Clear); Bacteria Urine Automated 4+ (Negative); Bilirubin Urine Negative (Negative); Blood Urine Trace (Negative); Color Urine Yellow; Epithelial Cell Urine Auto 20-30 /lpf (0-5); Glucose Urine UA Negative (Negative); Ketones Urine 1+ (Negative); Leukocyte Esterase Urine 1+ (Negative); Nitrite Urine Negative (Negative); Protein Urine Negative (Negative); Specific Gravity Urine 1.027 (1.000-1.030); Urobilinogen Urine Negative (Negative); WBC Urine Automated >30 /hpf (0-5); pH Urine 5.5 (4.5-7.5)
[2022-08-18] MEDS: MoRPHine SULFATE 2 MG/ML CARP IV PRN ×6 (02:44→23:53)
[2022-08-18 08:36] LABS: Hematocrit (blood only) 35.6 % (34.1-44.9); Hemoglobin 12.4 g/dl (12.0-16.0); Mean Corpuscular Hemoglobin 29.2 pg (25.0-34.0); Mean Corpuscular Hgb Conc 34.8 g/dL (32.0-36.0); Mean Corpuscular Volume 83.8 fL (80.0-100.0); Mean Platelet Volume 9.8 fL (9.4-12.3); Platelet Count 362 K/uL (130-400); RDW Standard Deviation 39.3 fL (36.4-46.3); Red Blood Count 4.25 M/uL (3.93-5.22); White Blood Count 7.73 K/ul (4.8-10.8)
--- NOTE | 2022-08-18 08:45 | Radiation OncologyConsultation ---
Date of Consultation August 18, 2022 Assessment & Plan (1) Pathologic lumbar vertebral fracture: This is a 77-year-old female who developed pain in the lower back. Pain radiates to the left hip and thigh. She had seen her primary care provider and studies were ordered. These have revealed liver metastasis as well as an L5 pathologic fracture. She was admitted and is undergoing continued evaluation. Consultations have been written for orthopedics as well as medical oncology. CT scan of the chest is ordered. Patient will ultimately need a biopsy to help determine the primary. I discussed with her that radiation can be given to help with palliation of pain. She is currently on acetaminophen, morphine, and tramadol. We will continue to follow her in electronic medical record. Would not currently plan to start treatment until tissue diagnosis has been obtained. See Dr. Romero's additional notes. Plan ATTENDING ADDENDUM Assessment: Ms. Elizabeth is a 77-year-old female with a previous smoking history who recently presented to the emergency room with low back pain. The patient did undergo imaging studies which do reveal multiple hepatic lesions consistent with metastatic disease as well as a lytic lesion involving L5 vertebral body. The patient is currently having in pain left lower back radiating down her left leg. She denies any focal neurologic deficits. You been asked to evaluate her for further work-up evaluation and consideration for radiation therapy. Recommendations/Plan: 1. Completion of staging work-up including CT of chest, bone scan and MRI of Brain. 2. Obtain tissue diagnosis. CT-guided needle biopsy of liver could be best location for biopsy. 3. Consideration for palliative external beam radiation therapy after completion of tissue diagnosis given patient's low back pain. 4. Continue current pain management as per primary medical team. 5. Medical oncology input appreciated. 6. We will continue to follow the patient and document as needed. Please call us with any further questions or concerns. History of Present Illness Reason for Consultation: Back pain Requesting Physician: Chandra Storm PA-C Attending Physician: Valentino Keating MD History of Present Illness Development of low back pain approximately 6 weeks ago. This is steadily increased. Pain radiates towards the left hip and thigh. She gives a pain level of 6-7. With movement the pain will increase to 8. She has seen her primary care provider who ordered x-rays. 08/17/2022. X-ray of the left hip and pelvis. No acute fracture within the pelvis or hips. Mild bilateral hip osteoarthritis. 08/17/2022. CT of the abdomen and pelvis. Numerous ring-enhancing hypodense lesions in the liver are concerning for metastatic disease in this patient status post hemicolectomy. No evidence of diverticulitis. There is nodularity of the adrenal glands bilaterally, nonspecific. Thickening of gastric wall may be secondary to undistended, clinical correlation for gastritis is recommended. Lytic lesion arising from the right aspect of the L5 vertebral body with an associated soft tissue mass and pathologic fracture. 08/17/2022. With these findings she was advised by the primary care provider to report to the emergency room for control of pain and further evaluation to determine source of metastatic disease. Pathology reviewed from the right colectomy. This was performed on 02/10/2016. This was a serrated adenoma with high-grade dysplasia. It was negative for invasive carcinoma. Allergies Allergy/AdvReac Type Severity Reaction Status Date / Time No Known Allergies Allergy Verified 08/17/22 07:42 Home Medications Medication Instructions Recorded Confirmed Type Lactobacillus rhamnosus GG 10 1 cap PO QAM 10/15/19 08/17/22 History billion cell capsule (Culturelle) acetaminophen 500 mg tablet 1,000 mg PO QID PRN Fever Or Pain 10/15/19 08/17/22 History (Tylenol Extra Strength) cranberry extract 200 mg capsule 400 mg PO DAILY 12/09/20 08/17/22 History simvastatin 40 mg tablet (Zocor) 40 mg PO QPM #90 tabs 09/28/21 08/17/22 Rx omeprazole 20 mg capsule,delayed 20 mg PO QAM #90 caps 10/21/21 08/17/22 Rx release blood sugar diagnostic (OneTouch #100 ea 11/16/21 08/17/22 Rx Verio test strips) OneTouch Delica Lancets 33 gauge #100 ea 07/19/22 08/17/22 Rx (lancets) lisinopril 40 mg tablet 40 mg PO DAILY 08/17/22 08/17/22 History metformin 500 mg tablet,extended 1,000 mg PO BID 08/17/22 08/17/22 History release 24 hr Patient History Medical History (Updated 08/18/22 @ 00:55 by Brain Stern DO) Alcohol intoxication Blood loss History of cigarette smoking Hyperlipidemia Hypertension Hypotension Open tibial fracture Sensorineural hearing loss of both ears Type 2 diabetes mellitus Surgical History History of ankle surgery broken ankle-2014 at [facility] History of appendectomy History of hemicolectomy January 2016--[facility] History of tonsillectomy History of tubal ligation Family History Sister Primary adenocarcinoma of vagina Father Asthma Hypertension Macular degeneration Pulmonary embolism Mother Emphysema lung Brother Macular degeneration Denies family history of Ovarian cancer Prostate cancer Myocardial infarction Breast cancer Colorectal cancer Social History Smoking Status: Former smoker Tobacco Type: Cigarettes packs per day: 2; Years Smoked: 45; Smoking End Date: quit 7 years ago; Second Hand Exposure: No; Hx Alcohol Use: No (stopped 7 years ago) Hx Substance Use: No Preferred Language: Romansh Communication Ability: Effective Visual Impairment: Limited Hearing Ability: Normal Grain Unloader Required: No Beliefs That Will Affect Care: None marital status: Current Living Situation: Spouse current occupational status: retired How many Children do You have: 2 Other Information That Helps Us Care for You: No Feels Safe at Home: Yes Safety Concerns: Feels Safe At This Time Childhood Exposure to Second-Hand Smoke: Yes caffeine: Yes (coffee 4 cups a day ) Dental Care, Regularly: Yes Physical Activity Frequency: Daily Physical Activity Frequency Comment: bicycle Seatbelt Use: always Sunscreen Use: Yes Assistive Devices: Cane and Walker Review of Systems Constitutional: + weight loss Eyes: no problem reported Ear, Nose, Mouth, Throat: Decreased hearing. 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 Respiratory: no problem reported Cardiovascular: no problem reported Gastrointestinal: She reports no problems. Her bowels are more frequent and loose since her partial colectomy. Genitourinary: She reports no problems today. She does have urinary tract infection approximately once a year. Musculoskeletal: See history of present illness. Integumentary: She reports no rashes. Neurologic: She denies paresthesias or numbness. Psychiatric: no problem reported Endocrine: Known diabetic. Hematologic / Lymphatic: no problem reported Allergy / Immunological: no problem reported Physical Exam Constitutional: + obese Eyes: PERRL, conjunctivae normal, anicteric sclerae ENMT: Ears: no hearing impairment Neck: trachea midline, no thyromegaly Respiratory: no respiratory distress and no cough Auscultation: + diminished lung sounds (Decreased breath sounds at apices.) Cardiovascular: Rate/Rhythm: regular rate and regular rhythm Heart Sounds: no murmur Gastrointestinal (Abdomen): normal bowel sounds, soft, nontender, no hepatosplenomegaly Musculoskeletal: There is no tenderness to palpation of the spinal processes or paraspinous musculature. Patient points to the left lower back and staged t hat this is the area of pain that occurs especially with movement. Skin: no rashes, warm and dry Neurologic: Equal strength and coordination of upper and lower extremities. Psychiatric: A+Ox3, euthymic affect Results (Rad Onc) [facility], [phone] CT Scan Report Patient: WINNIE ELIZABETH Date: 08/17/22#: [id number]: [address] [facility] RDAcct ID:[id number]: Date: 1945[facility] Zip: [place], [place] [address]Lix: 77Location: CTSex: FRoom/Bed:Att Phy: Shanti Watts MDDiagnosis: LLQ/L low back pain, wt loss, h/o SSA/hemicolectomPri Phy: Delbert Miramontes MDService Date: 08/17/22Fa Phy:Interpreting Phy: Edison [place] [facility] Phy: Ordering Phy: Shanti Watts MD cc: ~ ADDENDUM There is a lytic lesion arising from the right aspect of the L5 vertebral body with an associated soft tissue mass and pathologic fracture. Electronically signed by: Edison Montana M.D. 08/17/2022 2:[address] abd pelvis IV con only CLINICAL HISTORY: LLQ/L low back pain, wt loss, h/o SSA/hemicolectom TECHNIQUE: Helical axial images of the abdomen and pelvis were obtained and displayed. Automated dose lowering techniques and/or adjustment according to patient size were utilized for this exam. This exam was performed with intravenous contrast. CT DOSE: 983.81 mGycm COMPARISON: None available at the time of this dictation. FINDINGS: Lower chest: Mitral annular calcification and atherosclerotic changes of the coronary arteries are seen. Peripheral interstitial thickening of the lungs is noted. Liver: Numerous rim-enhancing hypodense lesions are seen in the liver, some of which distort the contour of the liver capsule. Largest measures 15 mm in diameter in the right lobe. Gallbladder and biliary tree: Cholelithiasis is seen without evidence of cholecystitis. A small amount of pericholecystic fluid is seen in the tip. No intra- or extrahepatic biliary ductal dilation. Pancreas: Unremarkable, no focal lesions. Spleen: Unremarkable. Adrenals: Nodularity of the adrenal glands noted bilaterally. Kidneys and ureters: Unremarkable. Bladder: Unremarkable. Reproductive organs: Multiple fibroids are seen. Bowel: Patient is status post right hemicolectomy. The stomach is under distended with prominence of the cardia and fundal wall. Lymph nodes Retroperitoneal: Unremarkable. Pelvic: Unremarkable. Mesenteric: Unremarkable. Peritoneum: Normal. Vessels: Atherosclerotic calcifications are seen. Abdominal wall: A fat-containing umbilical hernia is seen. Bones: Degenerative changes in the visualized spine. IMPRESSION: 1. Numerous rim-enhancing hypodense lesions in the liver are concerning for metastatic disease in this patient status post hemicolectomy. Correlation with prior imaging is recommended. If further evaluation is desired, tissue sampling versus MRI liver mass protocol can be performed. 2. No evidence of diverticulitis. Nonobstructive nephrolithiasis is seen 3. There is nodularity of the adrenal glands bilaterally, nonspecific. 4. Thickening of the gastric wall may be secondary to underdistention, clinical correlation for gastritis is recommended. ACT 112: Negative or not required by law. Electronically signed by: Edison Montana M.D. 08/17/2022 12:27 PM Dictated: 08/17/221207Transcribed: 08/17/221207 Time Spent Midlevel I spent [10] minutes in preparation for this follow up evaluation including reviewing all the clinical records, reviewing laboratory studies, pathology reports and imaging results. I spent [30] minutes with direct face to face interaction with the patient and/or family including performing a physical exam and answering all questions. I spent [10] minutes documenting this patient's visit.
[2022-08-18] MEDS: INSULIN ASPART PER UNIT SC SCH ×4 (08:52→21:19)
[2022-08-18] MEDS: LANTUS PER UNIT CHARGE SQ SCH ×2 (09:05→21:18)
[2022-08-18] MEDS: PANTOprazole 40 MG TAB PO SCH (09:06)
[2022-08-18] MEDS: ADVANCED PROBIOTIC 1250 MG CAPSULE PO SCH (09:06)
[2022-08-18] MEDS: ENOXAPARIN INJ 40 MG/0.4 ML SYR SQ SCH ×2 (09:06→21:20)
[2022-08-18 09:08] LABS: BUN Creatinine Ratio 20.8 (10-20); Calcium 9.4 mg/dl (8.5-10.1); Creatinine Clr Calc Pharmacy 90.7 ml/min; Est GFR (African American) 104.7 ml/min; Est GFR (Non-African American) 90.3 ml/min
[2022-08-18] MEDS ORDERED: OPTIRAY 350 100ml IV ONE (10:10)
--- NOTE | 2022-08-18 12:51 | Consultation ---
Date of Consultation August 18, 2022 Assessment & Plan (1) Pathologic lumbar vertebral fracture: Dr. Stevenson has reviewed abdominal/pelvic CT which is concerning for a pathologic L5 fracture. She has pain in this region. At this point time we need a more dedicated spine imaging. I will order MRI with and without contrast of the lumbar spine to start with. She may ultimately need cervical and thoracic imaging. Treatment will be based off of MRI review/findings. Currently there is concern that she presents with metastatic disease. Primary source unknown at this time. History of Present Illness Reason for Consultation: Pathologic L5 fracture Attending Physician: Valentino Keating MD History of Present Illness 77-year-old female who is admitted at the recommendation of her family physician after abnormal lab work and scans were performed. She has had lower back pain for the past 5 weeks but reports more severe over the past 3 weeks. No specific accident, trauma, fall. She also has pain that radiates around her left buttock left groin and anterior thigh. This is new as well. Her back pain is reproduced when she sleeps or lies down or when she goes to change positions from a lying down to a seated position. At home she ambulates with a cane typically. She lives with her . She has been taking Tylenol and Aleve. She is also been taking some of her 's Ativan and hydrocodone for pain control. Her daughter has also given her 3 tramadol over the past week for pain control. She states the pain medication since hospital admission has been helping control her symptoms. She also reports new neck pain since hospital admission Allergies Allergy/AdvReac Type Severity Reaction Status Date / Time No Known Allergies Allergy Verified 08/17/22 07:42 Home Medications Medication Instructions Recorded Confirmed Type Lactobacillus rhamnosus GG 10 1 cap PO QAM 10/15/19 08/17/22 History billion cell capsule (Culturelle) acetaminophen 500 mg tablet 1,000 mg PO QID PRN Fever Or Pain 10/15/19 08/17/22 History (Tylenol Extra Strength) cranberry extract 200 mg capsule 400 mg PO DAILY 12/09/20 08/17/22 History simvastatin 40 mg tablet (Zocor) 40 mg PO QPM #90 tabs 09/28/21 08/17/22 Rx omeprazole 20 mg capsule,delayed 20 mg PO QAM #90 caps 10/21/21 08/17/22 Rx release blood sugar diagnostic (OneTouch #100 ea 11/16/21 08/17/22 Rx Verio test strips) OneTouch Delica Lancets 33 gauge #100 ea 07/19/22 08/17/22 Rx (lancets) lisinopril 40 mg tablet 40 mg PO DAILY 08/17/22 08/17/22 History metformin 500 mg tablet,extended 1,000 mg PO BID 08/17/22 08/17/22 History release 24 hr Patient History Medical History Alcohol intoxication Blood loss History of cigarette smoking Hyperlipidemia Hypertension Hypotension Open tibial fracture Sensorineural hearing loss of both ears Type 2 diabetes mellitus Surgical History History of ankle surgery broken ankle-2014 at [facility] History of appendectomy History of hemicolectomy January 2016--[facility] History of tonsillectomy History of tubal ligation Family History Sister Primary adenocarcinoma of vagina Father Asthma Hypertension Macular degeneration Pulmonary embolism Mother Emphysema lung Brother Macular degeneration Denies family history of Ovarian cancer Prostate cancer Myocardial infarction Breast cancer Colorectal cancer Social History Smoking Status: Former smoker Tobacco Type: Cigarettes packs per day: 2; Years Smoked: 45; Smoking End Date: quit 7 years ago; Second Hand Exposure: No; Hx Alcohol Use: No (stopped 7 years ago) Hx Substance Use: No Preferred Language: Salvadorean Communication Ability: Effective Visual Impairment: Limited Hearing Ability: Normal Electrical 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 Required: No Beliefs That Will Affect Care: None marital status: Current Living Situation: Spouse current occupational status: retired How many Children do You have: 2 Other Information That Helps Us Care for You: No Feels Safe at Home: Yes Safety Concerns: Feels Safe At This Time Childhood Exposure to Second-Hand Smoke: Yes caffeine: Yes (coffee 4 cups a day ) Dental Care, Regularly: Yes Physical Activity Frequency: Daily Physical Activity Frequency Comment: bicycle Seatbelt Use: always Sunscreen Use: Yes Assistive Devices: Cane and Walker Review of Systems Review of Systems: All systems reviewed & are unremarkable except as noted in HPI & below Physical Exam Physical Exam: She is laying flat in bed in no acute distress Her daughter is present in the room Strength is 5/5 bilateral EHL, dorsiflexion, plantarflexion, quadriceps, hamstrings, hip flexors, hip abductor's and hip adductor Negative axial loading bilaterally Negative logrolling bilaterally Results & Data ([facility]) Vital Signs (Past 12 Hours) Vital Signs Temp Pulse Resp BP Pulse Ox O2 Del Method 08/18/22 07:53 36.8 C 79 16 125/79 94 Room Air Diagnostic Findings [place], [place] [phone] CT Scan Report Patient:WINNIE THOMSON Admit Date:08/17/22 MR#:[id number] Address1:[address] [facility] Acct ID:[id number] Address2: Date:1945 [facility] Zip:[place] [address] Age:77 Location:CT Sex:F Room/Bed: Att Phy:Shanti Watts MD Diagnosis:LLQ/L low back pain, wt loss, h/o SSA/hemicolectom Amanda Phy:Delbert Miramontes MD Service Date:08/17/22 [facility] Phy: Interpreting Phy:Edison Montana MDAdmit Phy: Ordering Phy:Shanti Watts MD cc: ~ ADDENDUM There is a lytic lesion arising from the right aspect of the L5 vertebral body with an associated soft tissue mass and pathologic fracture. Electronically signed by: Edison Montana M.D. 08/17/2022 2:[address] abd pelvis IV con only CLINICAL HISTORY: LLQ/L low back pain, wt loss, h/o SSA/hemicolectom TECHNIQUE: Helical axial images of the abdomen and pelvis were obtained and displayed. Automated dose lowering techniques and/or adjustment according to patient size were utilized for this exam. This exam was performed with intravenous contrast. CT DOSE: 983.81 mGycm COMPARISON: None available at the time of this dictation. FINDINGS: Lower chest: Mitral annular calcification and atherosclerotic changes of the coronary arteries are seen. Peripheral interstitial thickening of the lungs is noted. Liver: Numerous rim-enhancing hypodense lesions are seen in the liver, some of which distort the contour of the liver capsule. Largest measures 15 mm in diameter in the right lobe. Gallbladder and biliary tree: Cholelithiasis is seen without evidence of cholecystitis. A small amount of pericholecystic fluid is seen in the tip. No intra- or extrahepatic biliary ductal dilation. Pancreas: Unremarkable, no focal lesions. Spleen: Unremarkable. Adrenals: Nodularity of the adrenal glands noted bilaterally. Kidneys and ureters: Unremarkable. Bladder: Unremarkable. Reproductive organs: Multiple fibroids are seen. Bowel: Patient is status post right hemicolectomy. The stomach is under distended with prominence of the cardia and fundal wall. Lymph nodes Retroperitoneal: Unremarkable. Pelvic: Unremarkable. Mesenteric: Unremarkable. Peritoneum: Normal. Vessels: Atherosclerotic calcifications are seen. Abdominal wall: A fat-containing umbilical hernia is seen. Bones: Degenerative changes in the visualized spine. IMPRESSION: 1. Numerous rim-enhancing hypodense lesions in the liver are concerning for metastatic disease in this patient status post hemicolectomy. Correlation with prior imaging is recommended. If further evaluation is desired, tissue sampling versus MRI liver mass protocol can be performed. 2. No evidence of diverticulitis. Nonobstructive nephrolithiasis is seen 3. There is nodularity of the adrenal glands bilaterally, nonspecific. 4. Thickening of the gastric wall may be secondary to underdistention, clinical correlation for gastritis is recommended. ACT 112: Negative or not required by law. Electronically signed by: Edison Montana M.D. 08/17/2022 12:27 PM Dictated:08/17/22 1208 Transcribed: 08/17/22 1208
--- NOTE | 2022-08-18 13:54 | Electrocardiogram Report ---
Test Reason : Blood Pressure : / mmHG Vent. Rate : 094 BPM Atrial Rate : 094 BPM P-R Int : 152 ms QRS Dur : 072 ms QT Int : 346 ms P-R-T Axes : -02 009 054 degrees QTc Int : 432 ms Poor data quality, interpretation may be adversely affected Normal sinus rhythm Normal ECG No previous ECGs available Confirmed by Kurt Mitchell ([id number]) on 08/18/2022 1:54:31 PM Referred By: Shanti Watts Confirmed By:Artemio Mitchell
--- NOTE | 2022-08-18 15:31 | CT Scan Report ---
CT OF THE CHEST WITH IV CONTRAST CLINICAL HISTORY: Cancer staging. COMPARISON STUDY: Chest radiograph May 20, 2015. TECHNIQUE: Following IV administration of 94 mL of Optiray, helical axial images of the chest were o btained. Sagittal and coronal reconstructions were viewed as well as maximal intensity projections o n an independent 3-D workstation. Automated exposure control was utilized for the study. A dose low ering technique was utilized adhering to the principles of ALARA. CT DOSE: 439.68 mGy.cm FINDINGS: There is near-complete right upper lobe collapse. This is due to a central obstructing rig ht upper lobe mass with mediastinal involvement. This mass is difficult to measure given adjacent col lapsed lung. The mass measures approximately 6 x 5.8 cm and invades the SVC with moderate narrowing. There is associated pathologic mediastinal and right hilar adenopathy. Index right paratracheal lymph node measures 2.5 x 1.7 cm. Index subcarinal node measures 2.2 x 1.6 cm. Right hilar adenopathy is p artially obscured. The mass results in occlusion of the right upper lobe bronchus. There is moderate narrowing of the middle lobe bronchi as well due to adenopathy. There is no pneumothorax. A trace rig ht pleural effusion is present. Moderate emphysema is noted. There is dilatation of the central pulmo nary arteries. Extensive mitral annular calcification is present. There is no pericardial effusion. N o central pulmonary emboli are identified. Remainder of the pulmonary arteries are suboptimally opaci fied. There is a possible lytic lesion measuring 8 mm within the right posterior aspect of the T12 ve rtebral body. Numerous hepatic metastases measure up to 4.7 cm. A 1.5 cm left adrenal nodule is noted . Small right adrenal nodule is present. IMPRESSION: 1. 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 Mediastinal involvement which resu lts in moderate SVC narrowing due to invasion. Pulmonary consultation is recommended. 2. Associated jolene, hepatic, adrenal and skeletal metastases, as detailed above. 3. Emphysema. 4. Trace right pleural effusion. ACT 112: Positive. There are findings on this exam that require communication between the performing entity and the patient following Patient Test Result Information Act ([place] Act 112) guidelines. Electronically signed by: Elan Dotson M.D. 08/18/2022 3:29 PM
--- NOTE | 2022-08-18 16:20 | Hospitalist Progress Note ---
Date of Service August 18, 2022 Assessment & Plan (1) Liver lesion: Plan: -New liver lesions noted on CT of the abdomen and pelvis along with pathologic L5 vertebral fracture -Primary source is unknown at this time, -Will obtain further CT chest, MRI brain , bone scan -Appreciate rad Onc and hemonc input (2) Pathologic lumbar vertebral fracture: Plan: -Noted on CT -Spine surgery on consult -Pain is currently well-controlled after IV morphine (3) Hyponatremia: Plan: -resolved (4) Type 2 diabetes mellitus: Plan: -Hold metformin -Will start with lantus, 5 units BID -Correction factor of 50 -Adjust regimen as needed (5) Hyperlipidemia: Plan: -Continue statin (6) Hypertension: Plan: -Continue lisinopril Plan continue hospitalization Admission and Anticipated Discharge Date Admission Date: August 17, 2022 Subjective patient seen and examined, feels left leg and back pain when she moves Review of Systems Review of Systems: All systems reviewed are negative, apart from the ones contained in the history. Physical Exam Physical Exam: The patient is awake, alert and oriented 3, well developed and well nourished, normocephalic and atraumatic, lying in bed and in no acute distress. HEENT--PERRL, EOMI, mucous membranes and oropharynx mildly dry Neck--supple. No JVD. No bruits. Thyroid normal, trachea midline, no adenopathy. Heart--normal S1 and S2. No murmurs, rubs or gallops. Lungs--clear bilaterally, no respiratory distress, no accessory muscle use. Abdomen--normal bowel sounds and soft. Mild epigastric and left sided abdominal pain Extremities--no cyanosis or clubbing. No edema. Dermatologic--normal skin turgor, normal color, no abnormal lymph nodes, no rash. Neurologic--cranial nerves II through XII grossly intact. Rheumatologic--normal range of motion. Psychiatric--normal affect. Results & Data Results & Data ([facility]) Vital Signs (Past 12 Hours) Vital Signs Temp Pulse Resp BP BP Pulse Ox O2 Del Method 08/18/22 14:54 97.9 F 63 13 128/72 93 Room Air 08/18/22 07:53 98.2 F 79 16 125/79 94 Room Air PG Care Time/CCT Total # of Minutes Spent Total Time Spent with Patient: Total time spent is greater than 50% in coordination of care (as documented) at patient's floor/unit and/or counseling patient: Coding Level of Care Code 09717 Subseq Hosp Care Lvl 2 Diagnoses Liver lesion K76.9 Pathologic lumbar vertebral fracture M84.48XA Hyponatremia E87.1 Type 2 diabetes mellitus E11.9 Hyperlipidemia E78.5 Hypertension I10 Time Spent (min) 35
--- NOTE | 2022-08-18 20:15 | Consultation ---
Date of Consultation August 18, 2022 Assessment & Plan (1) Metastatic cancer: CT scans of the chest/abdomen/pelvis in a former heavy smoker radiologically and epidemiologically point very strongly towards a metastatic lung malignancy. She obviously has unequivocal stage IV disease Immediate issues are: - stabilization of her back with respect to structural stability and the pain related to that which will be deferred to orthopedics. - Establishing a biopsy diagnosis Biopsy material will wanda to serve 2 purposes, to confirm the diagnosis but also to have material for NGS studies that might point towards alternatives to chemotherapy that can be both better tolerated and more effective in treatment. Bronchoscopic biopsies are often relatively small volume and may not always be sufficient to do full NGS testing. Bone biopsy would require de-calcification and may not be able to be fully processed for NGS studies. CT or ultrasound- guided liver biopsy provides an opportunity for an ample core that can usually easily make the diagnosis and give plenty material for molecular processing. Moreover, biopsying the liver as opposed to the lung will unequivocally establish metastasis as indeed from a lung primary. Patient seems well aware of the potential diagnosis and its potential implications and is taking things reasonably in stride. She is very concerned as to how her will react to this. She and her heavily rely on their daughter for guidance who is in fact her power of attorney at law. It will be worthwhile to have palliative care potentially be part of the conversation going forward and to convene a family meeting once we have a more definitive biopsy available. Given the very high likelihood that this is a lung malignancy, whatever the histology, [employer] imaging would be important for full staging especially an MRI of the brain with and without contrast. She was a little bit overwhelmed today which just the prospects of having to do the MRI of the back so wants to hold off the brain MRI to a later time. [employer] imaging is especially indicated where it looks like she may be developing some early signs of SIADH While imaging also suggestd that she may also be developing SVC, in the absence of dramatic neurological deterioration or respiratory compromise this is not a medical emergency. If she has a small cell histology, treatment would in fact be early initiation of chemotherapy as the response to that may be quicker than to radiation. If she does not have a small cell histology, we can review the overall pros and cons of simply monitoring versus some consideration of semielective palliative radiation. As above. patient does seem to be very realistic. Palliative care involvement in her conversation may also transition at some point to moving away from cancer specific treatment to a more pure palliative care approach. This will be something that would be need to be discussed in the context of her entire family especially her daughter. Present on Admission?: Yes Plan Suggest: 1. Orthopedics will continue to address the back pain and stabilization 2. Would strongly suggest that the CT-guided liver biopsy or ultrasound-guided liver biopsy may offer a straightforward and ample specimen for both diagnosis and NGS processing 3. Brain MRI with and without will be an important component of ultimate staging 4. Radiation oncology involvement may become useful either for the back and/or for any issues that we see in the [employer]. 5. Would involve palliative care in the broader discussions as well 6. Once we have secured her diagnosis will be important can be in the family meeting for further review History of Present Illness Reason for Consultation: Patient with CT scan showing a picture of widespread metastatic malignancy, asked for oncology input in terms of initial diagnostic work-up and evaluation Attending Physician: Valentino Keating MD History of Present Illness 77-year-old without a previous specific history of malignancy. We note that she did have a hemicolectomy in 2016 but this was apparently not for a malignant diagnosis. Periodic colonoscopies in the interim have been unremarkable. She is a former smoker 2 packs/day for 45 years. She was also a fairly heavy alcohol drinker but stopped both 7 years ago after a fall with a fractured ankle. 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 She is not aware of any specific asbestos or other more recent unusual exposures. Retrospectively she had actually had some backs and shoulder pain in the spring but that had resolved spontaneously without further incident. She is now admitted with subacute onset of severe low back pain and an L5 pathological fracture on imaging. In retrospect she does note that she had lost approximately 15 pounds over the last several weeks having "just lost my appetite.". 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 There is no particular unusual pattern of cancer in her family Allergies Allergy/AdvReac Type Severity Reaction Status Date / Time No Known Allergies Allergy Verified 08/17/22 07:42 Home Medications Medication Instructions Recorded Confirmed Type Lactobacillus rhamnosus GG 10 1 cap PO QAM 10/15/19 08/17/22 History billion cell capsule (Culturelle) acetaminophen 500 mg tablet 1,000 mg PO QID PRN Fever Or Pain 10/15/19 08/17/22 History (Tylenol Extra Strength) cranberry extract 200 mg capsule 400 mg PO DAILY 12/09/20 08/17/22 History simvastatin 40 mg tablet (Zocor) 40 mg PO QPM #90 tabs 09/28/21 08/17/22 Rx omeprazole 20 mg capsule,delayed 20 mg PO QAM #90 caps 10/21/21 08/17/22 Rx release blood sugar diagnostic (OneTouch #100 ea 11/16/21 08/17/22 Rx Verio test strips) OneTouch Delica Lancets 33 gauge #100 ea 07/19/22 08/17/22 Rx (lancets) lisinopril 40 mg tablet 40 mg PO DAILY 08/17/22 08/17/22 History metformin 500 mg tablet,extended 1,000 mg PO BID 08/17/22 08/17/22 History release 24 hr Patient History Medical History Alcohol intoxication Blood loss History of cigarette smoking Hyperlipidemia Hypertension Hypotension Open tibial fracture Sensorineural hearing loss of both ears Type 2 diabetes mellitus Surgical History History of ankle surgery broken ankle-2014 at [facility] History of appendectomy History of hemicolectomy January 2016--[facility] History of tonsillectomy History of tubal ligation Family History Sister Primary adenocarcinoma of vagina Father Asthma Hypertension Macular degeneration Pulmonary embolism Mother Emphysema lung Brother Macular degeneration Denies family history of Ovarian cancer Prostate cancer Myocardial infarction Breast cancer Colorectal cancer Social History Smoking Status: Former smoker Tobacco Type: Cigarettes packs per day: 2; Years Smoked: 45; Smoking End Date: quit 7 years ago; Second Hand Exposure: No; Hx Alcohol Use: No (stopped 7 years ago) Hx Substance Use: No Preferred Language: Turkmen Communication Ability: Effective Visual Impairment: Limited Hearing Ability: Normal Silk Screen Cutter Required: No Beliefs That Will Affect Care: None marital status: Current Living Situation: Spouse current occupational status: retired How many Children do You have: 2 Other Information That Helps Us Care for You: No Feels Safe at Home: Yes Safety Concerns: Feels Safe At This Time Childhood Exposure to Second-Hand Smoke: Yes caffeine: Yes (coffee 4 cups a day ) Dental Care, Regularly: Yes Physical Activity Frequency: Daily Physical Activity Frequency Comment: bicycle Seatbelt Use: always Sunscreen Use: Yes Assistive Devices: Cane and Walker Review of Systems Review of Systems: Relevant positives are incorporated into his present illness. Otherwise no immediately concerning findings on a complete review of systems Physical Exam Physical Exam: Patient is alert and appropriate. ECOG performance status is currently 3 this is particular focus on the problems with her back pain and otherwise it sounds like she would have a performance status of 1. Blood pressures 128/72 pulse 63 respirations 13 temperature 36.6 She does not have facial plethora or marked engorgement of the neck vasculature Lungs show diffuse rhonchi but she is moving air relatively well in all zones with some possible mild decrease in the right upper zone but without gross egophony or rubs Heart rhythm is regular without pathological murmur Abdomen seems soft nontender without obvious mass organomegaly Extremities do not show any signs of DVT Neurologically she is alert and appropriate. Seems to be moving all 4 extremities without difficulty and not showing any dramatic focal changes on n eurologic exam Results & Data ([facility]) Vital Signs (Past 12 Hours) Vital Signs Temp Pulse Resp BP Pulse Ox O2 Del Method 08/18/22 14:54 36.6 C 63 13 128/72 93 Room Air Laboratory Results Abnormal lab results 08/17/22 08/17/22 08/17/22 Range/Units 16:29 22:17 23:16 Sodium (136-145) mmol/L Chloride (98-107) mmol/L Creatinine (0.6-1.2) mg/dl BUN/Creatinine Ratio (10-20) Glucose (70-99(Fasting)) mg/dl POC Glucose 105 H (70-99) mg/dl Osmolality 271 L (280-300) mOsm/kg Urine Appearance (Clear) Urine Ketones (Negative) Urine Blood (Negative) Ur Leukocyte Esterase (Negative) Urine WBC (Auto) (0-5) /hpf Urine RBC (Auto) (0-4) /hpf U Epithel Cells (Auto) (0-5) /lpf Urine Bacteria (Auto) (Negative) Urine Osmolality 498 L (500-800) mOsm/kg 08/17/22 08/18/22 08/18/22 Range/Units 23:16 00:31 08:00 Sodium 125 L (136-145) mmol/L Chloride (98-107) mmol/L Creatinine (0.6-1.2) mg/dl BUN/Creatinine Ratio (10-20) Glucose (70-99(Fasting)) mg/dl POC Glucose 122 H (70-99) mg/dl Osmolality (280-300) mOsm/kg Urine Appearance Cloudy A (Clear) Urine Ketones 1+ H (Negative) Urine Blood Trace H (Negative) Ur Leukocyte Esterase 1+ H (Negative) Urine WBC (Auto) >30 H (0-5) /hpf Urine RBC (Auto) 5-10 H (0-4) /hpf U Epithel Cells (Auto) 20-30 H (0-5) /lpf Urine Bacteria (Auto) 4+ H (Negative) Urine Osmolality (500-800) mOsm/kg 08/18/22 08/18/22 08/18/22 Range/Units 08:10 11:54 16:59 Sodium 127 L (136-145) mmol/L Chloride 92 L (98-107) mmol/L Creatinine 0.53 L (0.6-1.2) mg/dl BUN/Creatinine Ratio 20.8 H (10-20) Glucose 115 H (70-99(Fasting)) mg/dl POC Glucose 125 H 107 H (70-99) mg/dl Osmolality (280-300) mOsm/kg Urine Appearance (Clear) Urine Ketones (Negative) Urine Blood (Negative) Ur Leukocyte Esterase (Negative) Urine WBC (Auto) (0-5) /hpf Urine RBC (Auto) (0-4) /hpf U Epithel Cells (Auto) (0-5) /lpf Urine Bacteria (Auto) (Negative) Urine Osmolality (500-800) mOsm/kg Diagnostic Findings 08/17/2022 CT scan abdomen/pelvis ADDENDUM There is a lytic lesion arising from the right aspect of the L5 vertebral body with an associated soft tissue mass and pathologic fracture. Electronically signed by: Edison Montana M.D. 08/17/2022 2:[address] abd pelvis IV con only CLINICAL HISTORY: LLQ/L low back pain, wt loss, h/o SSA/hemicolectom TECHNIQUE: Helical axial images of the abdomen and pelvis were obtained and displayed. Automated dose lowering techniques and/or adjustment according to patient size were utilized for this exam. This exam was performed with intravenous contrast. CT DOSE: 983.81 mGycm COMPARISON: None available at the time of this dictation. FINDINGS: Lower chest: Mitral annular calcification and atherosclerotic changes of the coronary arteries are seen. Peripheral interstitial thickening of the lungs is noted. Liver: Numerous rim-enhancing hypodense lesions are seen in the liver, some of which distort the contour of the liver capsule. Largest measures 15 mm in diameter in the right lobe. Gallbladder and biliary tree: Cholelithiasis is seen without evidence of cholecystitis. A small amount of pericholecystic fluid is seen in the tip. No intra- or extrahepatic biliary ductal dilation. Pancreas: Unremarkable, no focal lesions. Spleen: Unremarkable. Adrenals: Nodularity of the adrenal glands noted bilaterally. Kidneys and ureters: Unremarkable. Bladder: Unremarkable. Reproductive organs: Multiple fibroids are seen. Bowel: Patient is status post right hemicolectomy. The stomach is under distended with prominence of the cardia and fundal wall. Lymph nodes Retroperitoneal: Unremarkable. Pelvic: Unremarkable. Mesenteric: Unremarkable. Peritoneum: Normal. Vessels: Atherosclerotic calcifications are seen. Abdominal wall: A fat-containing umbilical hernia is seen. Bones: Degenerative changes in the visualized spine. IMPRESSION: 1. Numerous rim-enhancing hypodense lesions in the liver are concerning for metastatic disease in this patient status post hemicolectomy. Correlation with prior imaging is recommended. If further evaluation is desired, tissue sampling versus MRI liver mass protocol can be performed. 2. No evidence of diverticulitis. Nonobstructive nephrolithiasis is seen 3. There is nodularity of the adrenal glands bilaterally, nonspecific. 4. Thickening of the gastric wall may be secondary to underdistention, clinical correlation for gastritis is recommended. ACT 112: Negative or not required by law. Electronically signed by: Edison Montana M.D. 08/17/2022 12:[address] 08/18/22 07:22 CT OF THE CHEST WITH IV CONTRAST CLINICAL HISTORY: Cancer staging. COMPARISON STUDY: Chest radiograph May 20, 2015. TECHNIQUE: Following IV administration of 94 mL of Optiray, helical axial images of the chest were obtained. Sagittal and coronal reconstructions were viewed as well as maximal intensity projections on an independent 3-D workstation. Automated exposure control was utilized for the study. A dose lowering technique was utilized adhering to the principles of ALARA. CT DOSE: 439.68 mGy.cm FINDINGS: There is near-complete right upper lobe collapse. This is due to a central obstructing right upper lobe mass with mediastinal involvement. This mass is difficult to measure given adjacent collapsed lung. The mass measures approximately 6 x 5.8 cm and invades the SVC with moderate narrowing. There is associated pathologic mediastinal and right hilar adenopathy. Index right paratracheal lymph node measures 2.5 x 1.7 cm. Index subcarinal node measures 2.2 x 1.6 cm. Right hilar adenopathy is partially obscured. The mass results in occlusion of the right upper lobe bronchus. There is moderate narrowing of the middle lobe bronchi as well due to adenopathy. There is no pneumothorax. A trace right pleural effusion is present. Moderate emphysema is noted. There is dilatation of the central pulmonary arteries. Extensive mitral annular calcification is present. There is no pericardial effusion. No central pulmonary emboli are identified. Remainder of the pulmonary arteries are suboptimally opacified. There is a possible lytic lesion measuring 8 mm within the right posterior aspect of the T12 vertebral body. Numerous hepatic metastases measure up to 4.7 cm. A 1.5 cm left adrenal nodule is noted. Small right adrenal nodule is present. IMPRESSION: 1. 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 Mediastinal involvement which results in moderate SVC narrowing due to invasion. Pulmonary consultation is recommended. 2. Associated jolene, hepatic, adrenal and skeletal metastases, as detailed above. 3. Emphysema. 4. Trace right pleural effusion. ACT 112: Positive. There are findings on this exam that require communication between the performing entity and the patient following Patient Test Result Information Act ([place] Act 112) guidelines. Electronically signed by: Elan Dotson M.D. 08/18/2022 3:29 PM PG Care Time/CCT Total # of Minutes Spent Total Time Spent with Patient: Total time spent is greater than 50% in coordination of care (as documented) at patient's floor/unit and/or counseling patient: Coding Level of Care Code 25514 Inpt Consult Level 5 History Expanded Problem Focused Exam Expanded Problem Focused Medical Decision Making High Complexity Diagnoses Metastatic cancer C79.9
[2022-08-18] MEDS: traMADol HCL 50 MG TABLET PO PRN (21:18)
[2022-08-18] MEDS: SIMVASTATIN 40 MG TAB PO SCH (21:19)
[2022-08-18] MEDS ORDERED: GADOBUTROL 65ML VIAL IV ONE (23:14)
[2022-08-19] MEDS: traMADol HCL 50 MG TABLET PO PRN ×2 (05:31→11:08)
--- NOTE | 2022-08-19 08:10 | Magnetic Resonance Report ---
MRI OF THE LUMBAR SPINE WITH AND WITHOUT CONTRAST CLINICAL HISTORY: Evaluate L5 pathologic fx. COMPARISON STUDY: CT of the abdomen and pelvis August 17, 2022. TECHNIQUE: Utilizing a 1.5 Elisa magnet and dedicated coil, multiplanar, multiecho imaging of the shellie ar spine was performed before and after uneventful IV administration of 9 mL of Gadavist. FINDINGS: For purposes of numbering on this exam, the L5-S1 disc space is assigned to axial image 27 of 30. The re is 4 mm of anterolisthesis of L4 and L5. Past[employer] Apprentice images demonstrate multiple hepatic lesions consist ent with metastases. Extensive multifocal marrow replacement is noted within the lower thoracic spine , lumbar spine, sacrum and visualized portions of the pelvis. The conus terminates at the mid L1 leve l. There is possible minimal epidural extension of tumor posterior to the L4 vertebral body. Enhancem ent posterior to the L5 vertebral body probably reflects prominent epidural venous plexus. Postcontra st images are compromised by motion artifact. Mild loss of height of the superior endplates of L4 and L5 represent pathologic fractures. No additional pathologic fractures are identified within the lumb ar spine. Paravertebral soft tissues are unremarkable. L1-2: The central canal and neural foramen are patent. There is mild facet arthrosis. L2-3: There is moderate facet arthrosis. There is minimal disc bulge. There is mild narrowing of the central canal and lateral recesses. The neural foramen are patent. L3-4: There is severe facet arthrosis. There is ligamentous hypertrophy. Findings result in mild to m oderate central canal stenosis. Neural foramen are patent. L4-5: Anterolisthesis is noted with uncovering of the disc. There is severe facet arthrosis with liga mentous hypertrophy. Findings result in severe narrowing of the central canal. Patent AP diameter can al is 3 mm. There is also moderate both lateral recesses and the bilateral neural foramen. L5-S1: Moderate facet arthrosis is present. Central canal and neural foramen are patent. IMPRESSION: 1. Extensive multifocal marrow replacement consistent with metastatic disease. L4 and L5 pathologic f ractures with mild loss of height. Possible minimal epidural extension of tumor at the L4 and L5 leve ls, as described above. Post contrast images compromised by motion artifact. No large epidural compon ent. 2. Severe central canal stenosis at L4-L5 due to facet arthrosis, ligamentous hypertrophy and anterol isthesis with uncovering of the disc. Mild to moderate central canal stenosis at L3-L4. 3. Multilevel neural femoral stenosis, as above. ACT 112: Negative or not required by law. Electronically signed by: Elan Dotson M.D. 08/19/2022 8:09 AM
[2022-08-19] MEDS: ADVANCED PROBIOTIC 1250 MG CAPSULE PO SCH (08:42)
[2022-08-19] MEDS: PANTOprazole 40 MG TAB PO SCH (08:42)
[2022-08-19] MEDS: LANTUS PER UNIT CHARGE SQ SCH ×2 (08:54→20:58)
[2022-08-19] MEDS: INSULIN ASPART PER UNIT SC SCH ×4 (08:55→20:27)
[2022-08-19] MEDS: ENOXAPARIN INJ 40 MG/0.4 ML SYR SQ SCH ×2 (08:57→20:59)
--- NOTE | 2022-08-19 09:06 | Palliative Care Consultation ---
Date of Consultation August 19, 2022 Assessment & Plan (1) Palliative care encounter: * Ms Elizabeth has a Stage IV widespread met cancer, likely lung primary. Biopsy is needed to confirm. * She has designated her daughter as her POA and HCP when she is unable to or no longer able to make her own medical decisions. She would like her & daughter involved in all major discussions about her cancer. * I met with pt and at bedside. We discussed Palliative Medicine engagement in cancer care. I advised her Palliative Care is specialized medical care for people living with a serious illness. This type of care is focused on providing relief from the symptoms and stress of the illness. The goal is to improve quality of life for both the patient and the family. I reassured her we work together with a patients other doctors to provide an extra layer of support, and that what we do for patient is based on their needs,not on the patients prognosis. It is appropriate at any age and at any stage in a serious illness, and it can be provided along with curative treatment. I told her more information can easily be reviewed at [email or web address] * I advised them that Palliative care alongside usual oncology care is now recommended by [employer] as the standard of care for any patient with advanced cancer on the basis of multiple randomized trials that show better results with concurrent care than with usual oncology care, such as better quality of life, symptom management, reduced anxiety and depression, less caregiver distress, more goal concordant care as well as less aggressive end-of-life care. Several studies show a survival advantage of several months, and many show considerable cost savings: better care at an affordable cost. * We discussed that cancer patients experience significant symptom and psychosocial burden for which the early integration of supportive oncology w ith palliative medicine (early findings from the research of Flavio) help address a growing need to manage patients comprehensively, with an emphasis on symptom control, nutritional and psychosocial support, and pharmaceutical review. Palliative care consultation in patients with advanced cancer is not only associated with an improvement in the quality of oncology care, but also a reduction in downstream healthcare utilization. In Cristobal et al 2017, when the automatic palliative medicine consult was triggered by specific oncology criteria, 30-day readmission rates and use of chemotherapy after discharge declined, whereas hospice referrals and uptake of support services post-discharge increased. Patients with advanced cancer admitted to an acute care hospital often have short life expectancies and high morbidity - for these patients, the integration of palliative care has improved symptom burden, reduced patient and caregiver distress, increased referral to hospice, and improved outcomes. * Patient is awaiting liver bx today. She wants to find out what she is dealing with before any further in depth conversations, adding again that once results are know she wants that conversation to be held with her, and dtr together. She is not opposed to trying therapy if it may help. She had a reasonably good QOL before this incident. * Code status was not discussed. Pt is awaiting momentary transport to her liver bx and she is already anxious. This can be done at another time with the added context of known pathology and implications thereof. (2) Cancer related pain: Feeling better with tramadol and prn IV MS. we discussed that the MS can be moved to an oral regimen for use at home, I doubt tramadol with be enough given the pathologic fracture and bony mets. (3) Counseling regarding advanced directives and goals of care: * Awaiting biopsy and path. Knows it is likely lung primary and refers to her prior smoking hx as the culprit. * She will remain full code, is open to more dialogue about "serious things once I know what it is." * If treatment(s) are offered she will likely accept, as family is encouraging. 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 (4) Metastatic cancer: Plan As noted above. Biopsy today, await path - then aim for a family discussion to review findings and recommendations. She wants to stay positive and focus on her future. She is aware her case will also be discussed at cancer committee, she asked if her and dtr could attend that however I advised her that was an internal session of [facility] clinicians discussing multiple cases and therefore it was not a meeting open to the public. History of Present Illness Reason for Consultation: "possible metastatic cancer, goals of care" Attending Physician: Valentino Keating MD History of Present Illness Ms. Lore Elizabeth was admitted 08/17/22 when sent to ED from PCP office, where she was found to be hyponatremic and abnormal CT. 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 She had sought PCP eval for persisting low back pain of 3 weeks duration, worsening with position changes and accompanied by radaition to LLE/hip along with an unintentional 15lb weight loss. PCP work up included a CT abdomen/pelviswhich reported:"Numerous rim-enhancing hypodense lesions in the liver are concerning for metastatic disease in this patient status post hemicolectomy. Correlation with prior imaging is recommended. If further evaluation is desired, tissue sampling versus MRI liver mass protocol can be performed. No evidence of diverticulitis. Nonobstructive nephrolithiasis is seen. There is nodularity of the adrenal glands bilaterally, nonspecific. Thickening of the gastric wall may be secondary to underdistention, clinical correlation for gastritis is recommended. Addendum shows "There is a lytic lesion arising from the right aspect of the L5 vertebral body with an associated soft tissue mass and pathologic fracture." Patient has been seen by rad onc who recc: "Completion of staging work-up including CT of chest, bone scan and MRI of Brain. 2. Obtain tissue diagnosis. CT-guided needle biopsy of liver could be best location for biopsy." Dr. Hogan's excellent note included the following: "Metastatic cancer: CT scans of the chest/abdomen/pelvis in a former heavy smoker radiologically and epidemiologically point very strongly towards a metastatic lung malignancy. She obviously has unequivocal stage IV disease Immediate issues are: - stabilization of her back with respect to structural stability and the pain related to that which will be deferred to orthopedics. - Establishing a biopsy diagnosis Biopsy material will e to serve 2 purposes, to confirm the diagnosis but also to have material for NGS studies that might point towards alternatives to chemotherapy that can be both better tolerated and more effective in treatment. Bronchoscopic biopsies are often relatively small volume and may not always be sufficient to do full NGS testing. Bone biopsy would require de-calcification and may not be able to be fully processed for NGS studies. CT or ultrasound- guided liver biopsy provides an opportunity for an ample core that can usually easily make the diagnosis and give plenty material for molecular processing. Moreover, biopsying the liver as opposed to the lung will unequivocally establish metastasis as indeed from a lung primary. Patient seems well aware of the potential diagnosis and its potential implications and is taking things reasonably in stride. She is very concerned as to how her will react to this. She and her heavily rely on their daughter for guidance who is in fact her power of transactional attorney. It will be worthwhile to have palliative care potentially be part of the conversation going forward and to convene a family meeting once we have a more definitive biopsy available. Given the very high likelihood that this is a lung malignancy, whatever the histology, BRAKE ENGINEER imaging would be important for full staging especially an MRI of the brain with and without contrast. She was a little bit overwhelmed today which just the prospects of having to do the MRI of the back so wants to hold off the brain MRI to a later time. BRAKE ENGINEER imaging is especially indicated where it looks like she may be developing some early signs of SIADH While imaging also suggested that she may also be developing SVC, in the absence of dramatic neurological deterioration or respiratory compromise this is not a medical emergency. If she has a small cell histology, treatment would in fact be early initiation of chemotherapy as the response to that may be quicker than to radiation. If she does not have a small cell histology, we can review the overall pros and cons of simply monitoring versus some consideration of semielective palliative radiation. As above. patient does seem to be very realistic. Palliative care involvement in her conversation may also transition at some point to moving away from cancer specific treatment to a more pure palliative care approach. This will be something that would be need to be discussed in the context of her entire family especially her daughter." Additional Imaging: MRI T Spine: 1. Multiple scattered metastatic lesions seen throughout the thoracic spine. No pathologic fractures or epidural involvement at this time. 2. Partial visualization of the patient's known right upper lobe mass and hepatic lesions. MRI C Spine: 1. Multiple scattered metastatic lesions seen throughout the cervical spine. No pathologic fractures or epidural extension at this time. 2. Partial visualization of the patient's known right upper lobe mass. MRI L Spine: 1. Extensive multifocal marrow replacement consistent with metastatic disease. L4 and L5 pathologic fractures with mild loss of height. Possible minimal epidural extension of tumor at the L4 and L5 levels, as described above. Post contrast images compromised by motion artifact. No large epidural component. 2. Severe central canal stenosis at L4-L5 due to facet arthrosis, ligamentous hypertrophy and anterolisthesis with uncovering of the disc. Mild to moderate central canal stenosis at L3-L4. 3. Multilevel neural femoral stenosis, as above. CT Chest: 1. Right upper lobe mass consistent with central bronchogenic carcinoma which occludes the right upper lobe bronchus and results in subtotal right upper lobe collapse. Mediastinal involvement which results in moderate SVC narrowing due to invasion. Pulmonary consultation is recommended 2. Associated jolene, hepatic, adrenal and skeletal metastases, as detailed above. 3. Emphysema. 4. Trace right pleural effusion. Allergies Allergy/AdvReac Type Severity Reaction Status Date / Time No Known Allergies Allergy Verified 08/17/22 07:42 Home Medications Medication Instructions Recorded Confirmed Type Lactobacillus rhamnosus GG 10 1 cap PO QAM 10/15/19 08/17/22 History billion cell capsule (Culturelle) acetaminophen 500 mg tablet 1,000 mg PO QID PRN Fever Or Pain 10/15/19 08/17/22 History (Tylenol Extra Strength) cranberry extract 200 mg capsule 400 mg PO DAILY 12/09/20 08/17/22 History simvastatin 40 mg tablet (Zocor) 40 mg PO QPM #90 tabs 09/28/21 08/17/22 Rx omeprazole 20 mg capsule,delayed 20 mg PO QAM #90 caps 10/21/21 08/17/22 Rx release blood sugar diagnostic (OneTouch #100 ea 11/16/21 08/17/22 Rx Verio test strips) OneTouch Delica Lancets 33 gauge #100 ea 07/19/22 08/17/22 Rx (lancets) lisinopril 40 mg tablet 40 mg PO DAILY 08/17/22 08/17/22 History metformin 500 mg tablet,extended 1,000 mg PO BID 08/17/22 08/17/22 History release 24 hr Patient History Medical History Alcohol intoxication Blood loss History of cigarette smoking Hyperlipidemia Hypertension Hypotension Open tibial fracture Sensorineural hearing loss of both ears Type 2 diabetes mellitus Surgical History History of ankle surgery broken ankle-2014 at [facility] History of appendectomy History of hemicolectomy January 2016--[facility] History of tonsillectomy History of tubal ligation Family History Sister Primary adenocarcinoma of vagina Father Asthma Hypertension Macular degeneration Pulmonary embolism Mother Emphysema lung Brother Macular degeneration Denies family history of Ovarian cancer Prostate cancer Myocardial infarction Breast cancer Colorectal cancer Social History Smoking Status: Former smoker Tobacco Type: Cigarettes packs per day: 2; Years Smoked: 45; Smoking End Date: quit 7 years ago; Second Hand Exposure: No; Hx Alcohol Use: No (stopped 7 years ago) Hx Substance Use: No Preferred Language: [place] Communication Ability: Effective Visual Impairment: Limited Hearing Ability: Normal Block Sealer Required: No Beliefs That Will Affect Care: None marital status: Current Living Situation: Spouse current occupational status: retired How many Children do You have: 2 Other Information That Helps Us Care for You: No Feels Safe at Home: Yes Safety Concerns: Feels Safe At This Time Childhood Exposure to Second-Hand Smoke: Yes caffeine: Yes (coffee 4 cups a day ) Dental Care, Regularly: Yes Physical Activity Frequency: Daily Physical Activity Frequency Comment: bicycle Seatbelt Use: always Sunscreen Use: Yes Assistive Devices: Cane and Walker Review of Systems Review of Systems: All systems reviewed & are unremarkable except as noted in Subjective Physical Exam Physical Exam: elderly female, mild distress, resting in bed. Color pink/skin warm. No acute resp distress. Occ grimaces with repositioning. no gross deformity. +OA changes/age related arthritis. no JVD. Neck supple/no stridor. AAOx3. Strength diminished. on bedrest, gait was not assessed. Results & Data ([facility]) Vital Signs (Past 12 Hours) Vital Signs Temp Pulse Resp BP Pulse Ox O2 Del Method 08/19/22 07:37 36.5 C 82 18 122/73 100 Room Air 08/19/22 00:00 77 148/79 H 94 Room Air Laboratory Results labs and imaging reviewed in HPI PG Care Time/CCT Total # of Minutes Spent Total Time Spent: 60 Total Time Spent with Patient: Total time spent is greater than 50% in coordination of care (as documented) at patient's floor/unit and/or counseling patient: 60 min in total 10 in data review 30 in face to face with pt and as outlined above 10 in coordinating a plan of care 10 in communication with team members. Coding Level of Care Code New Pt ADVNCD CARE PLAN 30 MIN Patient Type New History Comprehensive Exam Expanded Problem Focused Medical Decision Making Moderate Complexity Diagnoses Palliative care encounter Z51.5 Cancer related pain G89.3 Counseling regarding advanced directives and goals of care Z71.89 Metastatic cancer C79.9
[2022-08-19 09:11] LABS: Hematocrit (blood only) 37.2 % (34.1-44.9); Hemoglobin 13.4 g/dl (12.0-16.0); Mean Corpuscular Hemoglobin 29.5 pg (25.0-34.0); Mean Corpuscular Volume 81.9 fL (80.0-100.0); Platelet Count 383 K/uL (130-400); RDW Standard Deviation 38.5 fL (36.4-46.3); Red Blood Count 4.54 M/uL (3.93-5.22); White Blood Count 8.42 K/ul (4.8-10.8)
--- NOTE | 2022-08-19 09:13 | Magnetic Resonance Report ---
CERVICAL SPINE MRI WITH AND WITHOUT CONTRAST HISTORY: Right upper lobe mass. neck pain; eval for mets; L5 pathologic fx TECHNIQUE: Multiplanar multisequence MRI of the cervical spine was performed both before and after th e use of intravenous contrast. COMPARISON STUDY: Chest CT 08/18/2022. FINDINGS: There is mild motion artifact. Partial visualization of the patient's known right upper lob e mass. The visualized posterior fossa is unremarkable. The cervical spinal cord demonstrates a tara l signal intensity. The prevertebral soft tissues and C1-C2 interval are intact. Moderate disc space narrowing at C4-C5 and C5-C6. Broad-based posterior disc bulges with small focal central disc protrus ions at C4-C5 and C5-C6 resulting in [id number] central canal narrowing. There is also bilatera l severe neural foraminal narrowing at these levels. There is mild central canal narrowing at C3-C4 a nd C6-C7 due to the disc bulges. Moderate facet degenerative changes throughout the cervical spine. N o fracture or subluxation. Multiple scattered T2 hyperintense, T1 hypointense enhancing lesions seen throughout the majority of the cervical spine. This is most pronounced at the C2 and C3 vertebral bod ies. No epidural soft tissue component or pathologic fracture identified at this time. IMPRESSION: 1. Multiple scattered metastatic lesions seen throughout the cervical spine. No pathologic fractures or epidural extension at this time. 2. Partial visualization of the patient's known right upper lobe mass. ACT 112: Negative or not required by law. Electronically signed by: Yury David M.D. 08/19/2022 9:10 AM
--- NOTE | 2022-08-19 09:15 | Magnetic Resonance Report ---
THORACIC SPINE MRI WITH AND WITHOUT CONTRAST HISTORY: Known right upper lobe mass. eval for mets; L5 pathologic fx TECHNIQUE: Multiplanar multisequence MRI of the thoracic spine was performed both before and after th e intravenous administration of contrast. COMPARISON: Chest CT 08/18/2022. FINDINGS: Partial visualization of the patient's known right upper lobe mass and hepatic lesions. There are mul tiple scattered T2 hyperintense, T1 hypointense enhancing lesions seen throughout the thoracic spine consistent with metastatic disease. No pathologic fractures identified. No epidural soft tissue exten santana. This spaces are preserved. The thoracic spinal cord is normal and course, caliber, and signal i ntensity. No significant central canal or neural foraminal narrowing. Suboptimal evaluation of the po stcontrast sequences due to the motion artifact. IMPRESSION: 1. Multiple scattered metastatic lesions seen throughout the thoracic spine. No pathologic fractures or epidural involvement at this time. 2. Partial visualization of the patient's known right upper lobe mass and hepatic lesions. ACT 112: Negative or not required by law. Electronically signed by: Yury David M.D. 08/19/2022 9:13 AM
[2022-08-19 09:39] LABS: BUN Creatinine Ratio 18.2 (10-20); Creatinine Clr Calc Pharmacy 87.4 ml/min; Est GFR (African American) 103.4 ml/min; Est GFR (Non-African American) 89.2 ml/min; Potassium 4.1 mmol/L (3.5-5.1)
[2022-08-19] MEDS: MoRPHine SULFATE 2 MG/ML CARP IV PRN ×2 (12:16→20:26)
[2022-08-19] MEDS: POLYETHYLENE (MIRALAX) 17 GM PACK PO SCH (15:00)
--- NOTE | 2022-08-19 15:18 | Ultrasound Report ---
ULTRASOUND-GUIDED CORE NEEDLE BIOPSY OF THE LEFT HEPATIC LESION HISTORY:. liver mass COMPARISON: Abdomen and pelvis CT 08/17/2022. PROCEDURE: Written informed consent was obtained. The neck was prepped and draped in the usual steril e fashion. 1% lidocaine was used for local anesthesia. A single pass using an 18 x 9 cm biopsy device was made through a left hepatic lobe lesion under ultrasound guidance. Specimens were sent to [facility] for diagnosis. The patient tolerated the procedure well. There were no immediate complications. IMPRESSION: Successful ultrasound-guided core needle biopsy of the left hepatic lobe lesion. ACT 112: Negative or not required by law. Electronically signed by: Yury David M.D. 08/19/2022 3:17 PM
--- NOTE | 2022-08-19 16:17 | Hospitalist Progress Note ---
Date of Service August 19, 2022 Assessment & Plan (1) Liver lesion: Plan: -New liver lesions noted on CT of the abdomen and pelvis along with pathologic L5 vertebral fracture -Primary source is unknown at this time, could be lungs, given history of smoking -Core biopsy has been obtained by IR, will send for next generation sequencing hemonc on board (2) Pathologic lumbar vertebral fracture: Plan: -Noted on CT Extensive multifocal marrow replacement consistent with metastatic disease. L4 and L5 pathologic fractures with mild loss of height. Possible minimal epidural extension of tumor at the L4 and L5 levels -Also Severe central canal stenosis at L4-L5 due to facet arthrosis, ligamentous hypertrophy and anterolisthesis with uncovering of the disc. - Mild to moderate central canal stenosis at L3-L4. 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 Mediastinal involvement which results in moderate SVC narrowing due to invasion. Will consult Pulm (4) Hyponatremia: Plan: could be SIADH from lung mass fluid restriction to 1500cc/day (5) Type 2 diabetes mellitus: Plan: -Hold metformin -Will start with lantus, 5 units BID -Correction factor of 50 -Adjust regimen as needed (6) Hyperlipidemia: Plan: -Continue statin (7) Hypertension: Plan: -Continue lisinopril Plan continue hospitalization, Palliative on board for goals of care Admission and Anticipated Discharge Date Admission Date: August 17, 2022 Subjective patient seen and examined, feels left leg and back pain when she moves Review of Systems Review of Systems: All systems reviewed are negative, apart from the ones contained in the history. Physical Exam Physical Exam: The patient is awake, alert and oriented 3, well developed and well nourished, normocephalic and atraumatic, lying in bed and in no acute distress. HEENT--PERRL, EOMI, mucous membranes and oropharynx mildly dry Neck--supple. No JVD. No bruits. Thyroid normal, trachea midline, no adenopathy. Heart--normal S1 and S2. No murmurs, rubs or gallops. Lungs--clear bilaterally, no respiratory distress, no accessory muscle use. Abdomen--normal bowel sounds and soft. Mild epigastric and left sided abdominal pain Extremities--no cyanosis or clubbing. No edema. Dermatologic--normal skin turgor, normal color, no abnormal lymph nodes, no rash. Neurologic--cranial nerves II through XII grossly intact. Rheumatologic--normal range of motion. Psychiatric--normal affect. Results & Data Results & Data ([facility]) Vital Signs (Past 12 Hours) Vital Signs Temp Pulse Resp BP Pulse Ox O2 Del Method 08/19/22 15:37 97.7 F 74 18 144/79 H 91 Room Air 08/19/22 07:37 97.7 F 82 18 122/73 100 Room Air PG Care Time/CCT Total # of Minutes Spent Total Time Spent with Patient: Total time spent is greater than 50% in coordination of care (as documented) at patient's floor/unit and/or counseling patient: Coding Level of Care Code 76129 Subseq Hosp Care Lvl 2 Diagnoses Liver lesion K76.9 Pathologic lumbar vertebral fracture M84.48XA Lung collapse J98.19 Hyponatremia E87.1 Type 2 diabetes mellitus E11.9 Hyperlipidemia E78.5 Hypertension I10 Time Spent (min) 35
[2022-08-19] MEDS: SIMVASTATIN 40 MG TAB PO SCH (20:27)
[2022-08-20] MEDS: traMADol HCL 50 MG TABLET PO PRN ×2 (05:08→20:24)
--- NOTE | 2022-08-20 07:25 | Hospitalist Progress Note ---
Date of Service August 19, 2022 Assessment & Plan (1) Metastatic cancer: Plan: Appreciate hospitalist and radiology efficiency in getting the biopsy, those answers will be very important for framing our discussions about prognosis and treatment. Palliative care is involved and that will be quite important. Once pain is controlled, however, I think patient's performance status would certainly justify exploring the option of aggressive treatment. Immediate issue will be to more completely stabilize the pain. It challenged her to get through her MRIs. While we do need an MRI of the brain in time, lacking immediate neurological symptoms we can hold off until she can more comfortably do so. Anticipate pathology results by first the week and I will reconnect with her then. We should have adequate material for biopsy and she does not seem to have dramatic respiratory issues but imaging does show significant bronchial obstruction and a potential evolving SVC syndrome. As per previous, the potential SVC syndrome does not represent an emergent issue and does not need immediate intervention. Optimal intervention may indeed be chemotherapy if she has a small cell neuroendocrine histology.. Depending on how orthopedics feels about her back, radiation oncology review may be worthwhile for that and if/as they become involved we can have some contingent discussions about radiation as well for the SVC if she has a non-small cell histology and has any evolving symptomatology. With breathing relatively stable neither does she seem to need immediate intervention wrt transbronchial stenting and once again a small cell histology with rapid institution of chemotherapy may itself be effective in reestablishing aeration to the right lung. Plan Focus on optimizing pain relief and stabilization of the back Pathology is in process Once she is more comfortable, will need an MRI of the brain with and without contrast Palliative care is on board. Anticipate a family meeting once we have full r esults and a more specific framework for offering potential therapy. The family dynamics, however, could be just a bit tricky particularly with respect to her . I would anticipate an initial one-on-one discussion with the patient to map out her specific priorities and parameters that we can then take to the family meeting with a more firmly preestablished path that should optimize conversations at that point This is a non-curative situation and she is well aware of that. Admission and Anticipated Discharge Date Admission Date: August 17, 2022 Subjective Primarily still struggling with the back pain though that is improved from previous. Liver biopsy went quite well, results should be available by first of the week Physical Exam Physical Exam: Alert and appropriate, obviously in some discomfort with the back but overall looks reasonably stable with no severe distress Results & Data Results & Data ([facility]) Vital Signs (Past 12 Hours) Vital Signs Temp Pulse Resp BP Pulse Ox O2 Del Method 08/19/22 23:06 36.6 C 80 18 150/77 H 92 Room Air PG Care Time/CCT Total # of Minutes Spent Total Time Spent with Patient: Total time spent is greater than 50% in coordination of care (as documented) at patient's floor/unit and/or counseling patient: Coding Level of Care Code 29146 Subseq Hosp Care Lvl 2 Diagnoses Metastatic cancer C79.9
[2022-08-20 07:41] LABS: Hemoglobin 13.5 g/dl (12.0-16.0); Mean Corpuscular Hemoglobin 29.5 pg (25.0-34.0); Mean Corpuscular Hgb Conc 35.5 g/dL (32.0-36.0); Mean Corpuscular Volume 83.2 fL (80.0-100.0); Mean Platelet Volume 9.6 fL (9.4-12.3); Platelet Count 359 K/uL (130-400); RDW Coefficient of Variation 12.9 % (11.5-14.5); RDW Standard Deviation 39.1 fL (36.4-46.3); Red Blood Count 4.57 M/uL (3.93-5.22); White Blood Count 7.92 K/ul (4.8-10.8)
[2022-08-20 08:03] LABS: BUN Creatinine Ratio 19.3 (10-20); Creatinine Clr Calc Pharmacy 84.4 ml/min; Est GFR (African American) 102.2 ml/min; Est GFR (Non-African American) 88.2 ml/min
[2022-08-20] MEDS: ADVANCED PROBIOTIC 1250 MG CAPSULE PO SCH (08:13)
[2022-08-20] MEDS: PANTOprazole 40 MG TAB PO SCH (08:13)
[2022-08-20] MEDS: POLYETHYLENE (MIRALAX) 17 GM PACK PO SCH (08:19)
[2022-08-20] MEDS: LANTUS PER UNIT CHARGE SQ SCH ×2 (08:43→21:27)
[2022-08-20] MEDS: INSULIN ASPART PER UNIT SC SCH ×4 (08:43→21:16)
--- NOTE | 2022-08-20 08:44 | Radiation Oncology Progress Nt ---
Date of Service August 20, 2022 Assessment & Plan (1) Metastatic cancer: Plan Assessment: Ms. Elizabeth is a 77-year-old female with a previous smoking history who was been admitted to the hospital due to low back pain and likely presents with metastatic lung cancer with disease involving liver and bones. The patient did have a CT-guided biopsy of the liver and the pathology results are pending. The patient does have metastatic disease involving her lumbar spine which she is symptomatic from however she denies any focal neurologic deficits. The patient has been seen by Dr. Hogan from medical oncology who is recommending awaiting the tissue diagnosis to then make further recommendations regarding both chemotherapy and radiation therapy. Recommendations/Plan: 1. Completion of staging work-up including bone scan and MRI of Brain. 2. Follow-up on results regarding liver guided biopsy. 3. Consideration for palliative external beam radiation therapy to both the chest given the potential pulmonary obstruction/pending SVC syndrome as well as to lumbar spine given patient's low back pain. Final decisions will be made following confirmation of tissue diagnosis and discussion with medical oncology. 4. Continue current pain management as per primary medical team. 5. Medical oncology input appreciated. 6. Pulmonary medicine consultation could be beneficial if liver guided biopsy is nondiagnostic or more tissue is needed. Additional input regarding lung disease could be beneficial as well. 7. Plan to see patient on Tuesday to review pathology results and continue to make treatment recommendations. Admission and Anticipated Discharge Date Admission Date: August 17, 2022 Subjective Development of low back pain approximately 6 weeks ago. This is steadily increased. Pain radiates towards the left hip and thigh. She gives a pain level of 6-7. With movement the pain will increase to 8. She has seen her primary care provider who ordered x-rays. 08/17/2022. X-ray of the left hip and pelvis. No acute fracture within the pelvis or hips. Mild bilateral hip osteoarthritis. 08/17/2022. CT of the abdomen and pelvis. Numerous ring-enhancing hypodense lesions in the liver are concerning for metastatic disease in this patient status post hemicolectomy. No evidence of diverticulitis. There is nodularity of the adrenal glands bilaterally, nonspecific. Thickening of gastric wall may be secondary to undistended, clinical correlation for gastritis is recommended. Lytic lesion arising from the right aspect of the L5 vertebral body with an associated soft tissue mass and pathologic fracture. 08/17/2022. With these findings she was advised by the primary care provider to report to the emergency room for control of pain and further evaluation to determine source of metastatic disease. 08/18/2022. CT chest. 1. Right upper lobe mass consistent with central bronchogenic carcinoma which occludes the right upper lobe bronchus and results in subtotal right upper lobe collapse. Mediastinal involvement which results in moderate SVC narrowing due to invasion. Pulmonary consultation is recommended. 2. Associated jolene, hepatic, adrenal and skeletal metastases, as detailed above. 3. Emphysema. 4. Trace right pleural effusion. 08/18/2022. MRI cervical spine. 1. Multiple scattered metastatic lesions seen throughout the cervical spine. No pathologic fractures or epidural extension at this time. 2. Partial visualization of the patient's known right upper lobe mass. 08/18/2022. MRI thoracic spine. 1. Multiple scattered metastatic lesions seen throughout the thoracic spine. No pathologic fractures or epidural involvement at this time. 2. Partial visualization of the patient's known right upper lobe mass and hepatic lesions. 08/18/2022. MRI lumbar spine. 1. Extensive multifocal marrow replacement consistent with metastatic disease. L4 and L5 pathologic fractures with mild lo ss of height. Possible minimal epidural extension of tumor at the L4 and L5 levels, as described above. Post contrast images compromised by motion artifact. No large epidural component. 2. Severe central canal stenosis at L4-L5 due to facet arthrosis, ligamentous hypertrophy and anterolisthesis with uncovering of the disc. Mild to moderate central canal stenosis at L3-L4. 3. Multilevel neural femoral stenosis, as above. 08/19/2022. Liver biopsy ultrasound. Pathology results pending. 08/19/2022. Palliative care consultation. 09/15/2022. Medical oncology follow-up note by Dr. Hogan. Await results from tissue diagnosis. Chemotherapy and/or radiation therapy may be needed. Review of Systems Review of Systems: Patient continues to complain of low back pain. Constitutional: + weight loss Eyes: no problem reported Ear, Nose, Mouth, Throat: Decreased hearing. 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 Respiratory: no problem reported Cardiovascular: no problem reported Gastrointestinal: She reports no problems. Her bowels are more frequent and loose since her partial colectomy. Genitourinary: She reports no problems today. She does have urinary tract infection approximately once a year. Musculoskeletal: See history of present illness. Integumentary: She reports no rashes. Neurologic: She denies paresthesias or numbness. Psychiatric: no problem reported Endocrine: Known diabetic. Hematologic / Lymphatic: no problem reported Allergy / Immunological: no problem reported Physical Exam Constitutional: WD/WN, vitals as above ENMT: No facial edema noted. Neck: No edema noted. Skin: no rashes, warm and dry Psychiatric: A+Ox3, euthymic affect Results & Data ([facility]) Vital Signs (Past 12 Hours) Vital Signs Temp Pulse Resp BP BP Pulse Ox O2 Del Method 08/20/22 08:01 36.7 C 75 14 127/76 95 Room Air 08/19/22 23:06 36.6 C 80 18 150/77 H 92 Room Air
[2022-08-20] MEDS: DICLOFENAC SOD 1% GEL 100 GM TUBE EXT SCH ×2 (09:02→20:25)
[2022-08-20] MEDS: ENOXAPARIN INJ 40 MG/0.4 ML SYR SQ SCH ×2 (09:59→21:28)
--- NOTE | 2022-08-20 10:04 | Pulmonary Consultation ---
Date of Consultation August 20, 2022 Assessment & Plan (1) Lung collapse: (2) Metastatic cancer: Plan Impression: 77-year-old female with what appears to be widely metastatic cancer, most likely from a lung primary. Liver biopsy has been obtained with pathology pending which would be adequate to diagnose and adequately stage the patient. She is without any pulmonary complaints currently. Her CT scan does demonstrate complete replacement of the upper lobe likely with underlying tumor. Do not see clear evidence of an endobronchial lesion although the airway may be compromised. Recommendations: 1. Advanced malignancy, likely lung cancer: Definitive diagnosis is pending fr om a liver biopsy. There appears to be adequate cytologic material available. No indication for additional pulmonary procedures at this point in time until the liver biopsy has been finalized. Advised the patient that this does not appear to be curable but may be treatable. 2. Replacement of the right upper lobe. No intervention required currently from bronchoscopic standpoint. Therapy would primarily be dictated towards treating the underlying cancer and follow-up imaging. It is encouraging that the patient is relatively asymptomatic from a pulmonary standpoint currently. 3. 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 4. At this point time the patient's care will likely be dictated by radiation oncology and medical oncology. Should the patient develop additional pulmonary symptoms, I would be happy to see her back however at this point time it appears that we have adequate material for diagnosis and staging and the patient is asymptomatic from a pulmonary standpoint. Thanks for the opportunity participating in the care of this patient. Feel free to contact us if we can be of additional assistance. History of Present Illness Attending Physician: Valentino Keating MD History of Present Illness Asked by hospitalist to evaluate this patient with abnormal CT scan and suspicion for widely metastatic cancer. History is obtained from review electronic medical record as well as discussion with the patient. The patient is a 77-year-old female with an over [id number] history of tobacco abuse who quit smoking about 6 years ago. She was admitted to the hospital with complaints of hip and back pain as well as outpatient labs demonstrating hyponatremia and abnormal outpatient imaging studies. The patient had an acute visit with one of the primary care providers and was complaining of worsening back pain as well as an unintentional weight loss. X-rays and CT of the abdomen and pelvis were obtained in the outpatient setting. This demonstrated pathological fractures with evidence of metastatic disease and CT of the abdomen and pelvis demonstrating multiple liver lesions concerning for metastatic disease. She was admitted to the hospital directly as she was also hyponatremic. She has been seen in consultation by radiation oncology, palliative care, and medical oncology. A liver biopsy was undertaken yesterday. I reviewed the pathology with Dr. Haney. There is adequate diagnostic material available and she is awaiting immunohistochemical studies for final diagnosis. The patient surprisingly is without significant pulmonary complaints. She is not experiencing any shortness of breath. No chest pain. No cough or sputum production. No wheezing. She states she had pulmonary function test performed several years ago and was advised that these were normal. Her primary care provider may have told her that she had COPD in the past but she does not use any inhalers or supplemental oxygen. Her pain control currently is suboptimal. Allergies Allergy/AdvReac Type Severity Reaction Status Date / Time No Known Allergies Allergy Verified 08/17/22 07:42 Home Medications Medication Instructions Recorded Confirmed Type Lactobacillus rhamnosus GG 10 1 cap PO QAM 10/15/19 08/17/22 History billion cell capsule (Culturelle) acetaminophen 500 mg tablet 1,000 mg PO QID PRN Fever Or Pain 10/15/19 08/17/22 History (Tylenol Extra Strength) cranberry extract 200 mg capsule 400 mg PO DAILY 12/09/20 08/17/22 History simvastatin 40 mg tablet (Zocor) 40 mg PO QPM #90 tabs 09/28/21 08/17/22 Rx omeprazole 20 mg capsule,delayed 20 mg PO QAM #90 caps 10/21/21 08/17/22 Rx release blood sugar diagnostic (OneTouch #100 ea 11/16/21 08/17/22 Rx Verio test strips) OneTouch Delica Lancets 33 gauge #100 ea 07/19/22 08/17/22 Rx (lancets) lisinopril 40 mg tablet 40 mg PO DAILY 08/17/22 08/17/22 History metformin 500 mg tablet,extended 1,000 mg PO BID 08/17/22 08/17/22 History release 24 hr Patient History Medical History Alcohol intoxication Blood loss History of cigarette smoking Hyperlipidemia Hypertension Hypotension Open tibial fracture Sensorineural hearing loss of both ears Type 2 diabetes mellitus Surgical History History of ankle surgery broken ankle-2014 at [facility] History of appendectomy History of hemicolectomy January 2016--[facility] History of tonsillectomy History of tubal ligation Family History Sister Primary adenocarcinoma of vagina Father Asthma Hypertension Macular degeneration Pulmonary embolism Mother Emphysema lung Brother Macular degeneration Denies family history of Ovarian cancer Prostate cancer Myocardial infarction Breast cancer Colorectal cancer Social History Smoking Status: Former smoker Tobacco Type: Cigarettes packs per day: 2; Years Smoked: 45; Smoking End Date: quit 7 years ago; Second Hand Exposure: No; Hx Alcohol Use: No (stopped 7 years ago) Hx Substance Use: No Preferred Language: [place] Communication Ability: Effective Visual Impairment: Limited Hearing Ability: Normal Electronic Technician Required: No Beliefs That Will Affect Care: None marital status: Current Living Situation: Spouse current occupational status: retired How many Children do You have: 2 Other Information That Helps Us Care for You: No Feels Safe at Home: Yes Safety Concerns: Feels Safe At This Time Childhood Exposure to Second-Hand Smoke: Yes caffeine: Yes (coffee 4 cups a day ) Dental Care, Regularly: Yes Physical Activity Frequency: Daily Physical Activity Frequency Comment: bicycle Seatbelt Use: always Sunscreen Use: Yes Assistive Devices: Cane and Walker Review of Systems Review of Systems: All systems reviewed & are unremarkable except as noted in Subjective Physical Exam Constitutional: + obese Eyes: PERRL, conjunctivae normal, anicteric sclerae Neck: trachea midline, no thyromegaly Respiratory: no respiratory distress and no cough Auscultation: + diminished lung sounds (Decreased breath sounds at apices.) Cardiovascular: Rate/Rhythm: regular rate and regular rhythm Heart Sounds: no murmur Gastrointestinal (Abdomen): normal bowel sounds, soft, nontender, no hepatosplenomegaly Skin: no rashes, warm and dry Neurologic: Equal strength and coordination of upper and lower extremities. Psychiatric: A+Ox3, euthymic affect Results & Data Results & Data ([facility]) Vital Signs (Past 12 Hours) Vital Signs Temp Pulse Resp BP BP Pulse Ox O2 Del Method 08/20/22 08:01 36.7 C 75 14 127/76 95 Room Air 08/19/22 23:06 36.6 C 80 18 150/77 H 92 Room Air Critical Care Results & Data Vital Signs (Past 12 Hours) Vital Signs Temp Pulse Resp BP BP Pulse Ox O2 Del Method 08/20/22 08:01 36.7 C 75 14 127/76 95 Room Air 08/19/22 23:06 36.6 C 80 18 150/77 H 92 Room Air Lab & Micro Results (Past 24 Hours) RBC 4.57 M/uL (3.93-5.22) 08/20/22 WBC 7.92 K/ul (4.8-10.8) 08/20/22 Hgb 13.5 g/dl (12.0-16.0) 08/20/22 Hct 38.0 % (34.1-44.9) 08/20/22 MCV 83.2 fL (80.0-100.0) 08/20/22 MCH 29.5 pg (25.0-34.0) 08/20/22 MCHC 35.5 g/dL (32.0-36.0) 08/20/22 RDW Standard Deviation 39.1 fL (36.4-46.3) 08/20/22 RDW Coefficient of Variation 12.9 % (11.5-14.5) 08/20/22 Plt Count 359 K/uL (130-400) 08/20/22 MPV 9.6 fL (9.4-12.3) 08/20/22 Na 128 mmol/L (136-145) L 08/20/22 K 4.0 mmol/L (3.5-5.1) 08/20/22 Cl 92 mmol/L (98-107) L 08/20/22 CO2 26 mmol/L (21-32) 08/20/22 Anion Gap 10 (3-11) 08/20/22 BUN 11 mg/dl (6-23) 08/20/22 Creatinine 0.57 mg/dl (0.6-1.2) L 08/20/22 Estimated GFR ( Amer) 102.2 ml/min 08/20/22 Estimated GFR (Non-Af Amer) 88.2 ml/min 08/20/22 BUN/Creatinine Ratio 19.3 (10-20) 08/20/22 Glu 115 mg/dl (70-99(Fasting)) H 08/20/22 Ca 10.0 mg/dl (8.5-10.1) 08/20/22 Calcium Level 10.0 mg/dl (8.5-10.1) 08/20/22 07:22 Microbiology 08/17/22 23:16 Urine Culture - Final Urine,Clean Catch Alpha strep. not enterococcus Escherichia coli Diagnostic Findings (Past 24 Hours) Liver Biopsy Ultrasound 08/19/22 08:21 ULTRASOUND-GUIDED CORE NEEDLE BIOPSY OF THE LEFT HEPATIC LESION HISTORY:. liver mass COMPARISON: Abdomen and pelvis CT 08/17/2022. PROCEDURE: Written informed consent was obtained. The neck was prepped and draped in the usual sterile fashion. 1% lidocaine was used for local anesthesia. A single pass using an 18 x 9 cm biopsy device was made through a left hepatic lobe lesion under ultrasound guidance. Specimens were sent to pathology for diagnosis. The patient tolerated the procedure well. There were no immediate complications. IMPRESSION: Successful ultrasound-guided core needle biopsy of the left hepatic lobe lesion. ACT 112: Negative or not required by law. Electronically signed by: Yury David M.D. 08/19/2022 3:17 PM I & O Totals 24 Hours 08/19/22 08/20/22 08/21/22 06:59 06:59 06:59 Intake Total 525 / 525 100 / 100 Output Total 1050 / 1050 625 / 625 Balance -525 / -525 -525 / -525 Cumulative 08/17/22 15:29 thru 08/20/22 08:25 Intake Total 1775 Output Total 2325 Balance -550 RT Ventilator Mngmt (Last Documented) Ventilator Ordered Settings Respiratory Rate 14 08/20/22 08:01 Ventilator - PT Measurements Respiratory Rate 14 PG Care Time/CCT Total # of Minutes Spent Total Time Spent with Patient: Total time spent is greater than 50% in coordination of care (as documented) at patient's floor/unit and/or counseling patient: Coding Level of Care Code 10133 Initial Inpt Care Lvl 3 Diagnoses Lung collapse J98.19 Metastatic cancer C79.9
--- NOTE | 2022-08-20 12:26 | Palliative Care Progress Note ---
Date of Service August 20, 2022 Assessment & Plan (1) Palliative care encounter: (2) Cancer related pain: Plan: To begin transitioning pt to a regimen she can follow at home: start a trial of MS 5mg PO q4h prn pain or prior to testing/procedures with hold parameters as written Please reserve IV for severe pain unrelieved by oral meds. If MS PO is helping, plan to stop tramadol PRN dose. Bowel regimen modified. (3) Metastatic cancer: Plan: Bx done 08/19/22. Await path. Plan As noted above. Bowel regimen modified. Ca Shaw DNP Clinical Director, Palliative Medicine Admission and Anticipated Discharge Date Admission Date: August 17, 2022 Subjective uneventful biopsy didn't tolerate positioning for testing, increased pain using MS 2mg IV q4h prn for relief, tramadol does not do enough. resting in bed Review of Systems Review of Systems: All systems reviewed & are unremarkable except as noted in Subjective Physical Exam Constitutional: well groomed and cooperative Eyes: PERRL, conjunctivae normal, anicteric sclerae Neck: trachea midline, no thyromegaly Respiratory: no respiratory distress and no cough Auscultation: + diminished lung sounds (Decreased breath sounds at apices.) Cardiovascular: Rate/Rhythm: regular rate and regular rhythm Heart Sounds: no murmur Gastrointestinal (Abdomen): normal bowel sounds, soft, nontender, no hepatosplenomegaly Skin: no rashes, warm and dry Neurologic: Equal strength and coordination of upper and lower extremities. Psychiatric: A+Ox3, euthymic affect Results & Data ([facility]) Vital Signs (Past 12 Hours) Vital Signs Temp Pulse Resp BP Pulse Ox O2 Del Method 08/20/22 08:01 36.7 C 75 14 127/76 95 Room Air Laboratory Results Labs and imaging reviewed PG Care Time/CCT Total # of Minutes Spent Total Time Spent: 30 Total Time Spent with Patient: Total time spent is greater than 50% in coordination of care (as documented) at patient's floor/unit and/or counseling patient: Coding [place] [address] Subseq Hosp Care Lvl 1 Patient Type Established History Problem Focused Exam Problem Focused Medical Decision Making Low Complexity Diagnoses Palliative care encounter Z51.5 Cancer related pain G89.3 Metastatic cancer C79.9
--- NOTE | 2022-08-20 14:38 | Hospitalist Progress Note ---
Date of Service August 20, 2022 Assessment & Plan (1) Liver lesion: Plan: -New liver lesions noted on CT of the abdomen and pelvis along with pathologic L5 vertebral fracture -Primary source is unknown at this time, could be lungs, given history of smoking -Core biopsy has been obtained by IR, will send for next generation sequencing [facility] on board (2) Pathologic lumbar vertebral fracture: Plan: -Noted on CT Extensive multifocal marrow replacement consistent with metastatic disease. L4 and L5 pathologic fractures with mild loss of height. Possible minimal epidural extension of tumor at the L4 and L5 levels -Also Severe central canal stenosis at L4-L5 due to facet arthrosis, ligamentous hypertrophy and anterolisthesis with uncovering of the disc. - Mild to moderate central canal stenosis at L3-L4. 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 Mediastinal involvement which results in moderate SVC narrowing due to invasion. Will consult Pulm (4) Hyponatremia: Plan: could be SIADH from lung mass fluid restriction to 1500cc/day (5) Type 2 diabetes mellitus: Plan: -Hold metformin -Will start with lantus, 5 units BID -Correction factor of 50 -Adjust regimen as needed (6) Hyperlipidemia: Plan: -Continue statin (7) Hypertension: Plan: -Continue lisinopril Plan continue hospitalization, Palliative on board for goals of care Admission and Anticipated Discharge Date Admission Date: August 17, 2022 Subjective patient seen and examined, could not tolerate the duration of the MRI brain Review of Systems Review of Systems: All systems reviewed are negative, apart from the ones contained in the history. Physical Exam Physical Exam: The patient is awake, alert and oriented 3, well developed and well nourished, normocephalic and atraumatic, lying in bed and in no acute distress. HEENT--PERRL, EOMI, mucous membranes and oropharynx mildly dry Neck--supple. No JVD. No bruits. Thyroid normal, trachea midline, no adenopathy. Heart--normal S1 and S2. No murmurs, rubs or gallops. Lungs--clear bilaterally, no respiratory distress, no accessory muscle use. Abdomen--normal bowel sounds and soft. Mild epigastric and left sided abdominal pain Extremities--no cyanosis or clubbing. No edema. Dermatologic--normal skin turgor, normal color, no abnormal lymph nodes, no rash. Neurologic--cranial nerves II through XII grossly intact. Rheumatologic--normal range of motion. Psychiatric--normal affect. Results & Data Results & Data ([facility]) Vital Signs (Past 12 Hours) Vital Signs Temp Pulse Resp BP Pulse Ox O2 Del Method 08/20/22 08:01 98.1 F 75 14 127/76 95 Room Air PG Care Time/CCT Total # of Minutes Spent Total Time Spent with Patient: Total time spent is greater than 50% in coordination of care (as documented) at patient's floor/unit and/or counseling patient: Coding Level of Care Code 90548 Subseq Hosp Care Lvl 2 Diagnoses Liver lesion K76.9 Pathologic lumbar vertebral fracture M84.48XA Lung collapse J98.19 Hyponatremia E87.1 Type 2 diabetes mellitus E11.9 Hyperlipidemia E78.5 Hypertension I10 Time Spent (min) 35
[2022-08-20] MEDS ORDERED: bisacodyL 10 MG SUPP PR STA (17:05)
[2022-08-20] MEDS: SIMVASTATIN 40 MG TAB PO SCH (20:25)
[2022-08-20] MEDS: MoRPHine SULFATE 2 MG/ML CARP IV PRN (21:27)
[2022-08-21] MEDS: MoRPHine SULFATE 2 MG/ML CARP IV PRN (00:19)
[2022-08-21] MEDS: MoRPHine SULFATE 5 MG/0.25 ML UDP PO PRN ×4 (05:41→20:47)
[2022-08-21] MEDS: INSULIN ASPART PER UNIT SC SCH ×4 (08:25→20:36)
[2022-08-21] MEDS: DOCUSATE SODIUM/SENNA 50/8.6MG TAB PO SCH (08:52)
[2022-08-21] MEDS: DICLOFENAC SOD 1% GEL 100 GM TUBE EXT SCH ×2 (08:52→20:49)
[2022-08-21] MEDS: POLYETHYLENE (MIRALAX) 17 GM PACK PO SCH (08:52)
[2022-08-21] MEDS: LANTUS PER UNIT CHARGE SQ SCH ×2 (08:52→21:24)
[2022-08-21] MEDS: PANTOprazole 40 MG TAB PO SCH (08:53)
[2022-08-21] MEDS: ADVANCED PROBIOTIC 1250 MG CAPSULE PO SCH (08:53)
[2022-08-21] MEDS: ENOXAPARIN INJ 40 MG/0.4 ML SYR SQ SCH ×2 (10:21→20:51)
--- NOTE | 2022-08-21 14:33 | Hospitalist Progress Note ---
Date of Service August 21, 2022 Assessment & Plan (1) Liver lesion: Plan: -New liver lesions noted on CT of the abdomen and pelvis along with pathologic L5 vertebral fracture and lung lesions -Primary source is unknown at this time, could be lungs, given history of s moking -Core biopsy has been obtained by IR, will send for next generation sequencing, [facility] (2) Pathologic lumbar vertebral fracture: Plan: -Noted on CT Extensive multifocal marrow replacement consistent with metastatic disease. L4 and L5 pathologic fractures with mild loss of height. Possible minimal epidural extension of tumor at the L4 and L5 levels -Also Severe central canal stenosis at L4-L5 due to facet arthrosis, ligamentous hypertrophy and anterolisthesis with uncovering of the disc. - Mild to moderate central canal stenosis at L3-L4. 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 Mediastinal involvement which results in moderate SVC narrowing due to invasion. Pulmonolgy on consult (4) Hyponatremia: Plan: could be SIADH from lung mass fluid restriction to 1500cc/day (5) Type 2 diabetes mellitus: Plan: -Hold metformin -Will start with lantus, 5 units BID -Correction factor of 50 -Adjust regimen as needed (6) Hyperlipidemia: Plan: -Continue statin (7) Hypertension: Plan: -Continue lisinopril Plan continue hospitalization, Palliative on board for goals of care Admission and Anticipated Discharge Date Admission Date: August 17, 2022 Subjective patient seen and examined, no new complaints, awaiting the result of the biopsy Review of Systems Review of Systems: All systems reviewed are negative, apart from the ones contained in the history. Physical Exam Physical Exam: The patient is awake, alert and oriented 3, well developed and well nourished, normocephalic and atraumatic, lying in bed and in no acute distress. HEENT--PERRL, EOMI, mucous membranes and oropharynx mildly dry Neck--supple. No JVD. No bruits. Thyroid normal, trachea midline, no adenopathy. Heart--normal S1 and S2. No murmurs, rubs or gallops. Lungs--clear bilaterally, no respiratory distress, no accessory muscle use. Abdomen--normal bowel sounds and soft. Mild epigastric and left sided abdominal pain Extremities--no cyanosis or clubbing. No edema. Dermatologic--normal skin turgor, normal color, no abnormal lymph nodes, no rash. Neurologic--cranial nerves II through XII grossly intact. Rheumatologic--normal range of motion. Psychiatric--normal affect. Results & Data Results & Data ([facility]) Vital Signs (Past 12 Hours) Vital Signs Temp Pulse Resp BP Pulse Ox O2 Del Method 08/21/22 07:01 98.1 F 78 18 114/65 94 Room Air PG Care Time/CCT Total # of Minutes Spent Total Time Spent with Patient: Total time spent is greater than 50% in coordination of care (as documented) at patient's floor/unit and/or counseling patient: Coding Level of Care Code 60604 Subseq Hosp Care Lvl 2 Diagnoses Liver lesion K76.9 Pathologic lumbar vertebral fracture M84.48XA Lung collapse J98.19 Hyponatremia E87.1 Type 2 diabetes mellitus E11.9 Hyperlipidemia E78.5 Hypertension I10 Time Spent (min) 35
[2022-08-21] MEDS: traMADol HCL 50 MG TABLET PO PRN (17:39)
[2022-08-21] MEDS: SIMVASTATIN 40 MG TAB PO SCH (20:50)
[2022-08-22] MEDS: MoRPHine SULFATE 5 MG/0.25 ML UDP PO PRN ×3 (00:25→17:46)
[2022-08-22] MEDS: MoRPHine SULFATE 2 MG/ML CARP IV PRN (03:13)
[2022-08-22] MEDS ORDERED: SODIUM CHLORIDE 0.9% 1000ML 500 ML IV ONE (03:42)
--- NOTE | 2022-08-22 03:54 | Communication Note ---
Date of Service: August 22, 2022 Night resident note 03:15- RN notified me that patient developed diaphoresis, SOB, and her HR increased from 60-80s to 140-150s. EKG showed a rate of 142, no easily- identifiable p-waves, and slight ST-depression noted in V3-V5. 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 I ordered a stat hsTroponin, an NSS 500mL bolus (x1), and transferred patient to PCU for cardiac monitoring. The hsTroponin resulted wnl at 12.9. Plan: NSS 500mL bolus Transfer to PCU for cardiac monitoring Kenton Mark, PGY-3 Resident Activity Tracking Resident Involvement: Resident Care Provided and Lighting Specialist Coverage Note Care Provided: Adult Hospital Medicine
[2022-08-22 04:35] LABS: Hematocrit (blood only) 40.6 % (34.1-44.9); Hemoglobin 14.2 g/dl (12.0-16.0); Mean Corpuscular Hemoglobin 29.5 pg (25.0-34.0); Mean Corpuscular Volume 84.2 fL (80.0-100.0); Mean Platelet Volume 9.8 fL (9.4-12.3); Platelet Count 398 K/uL (130-400); RDW Coefficient of Variation 13.1 % (11.5-14.5); RDW Standard Deviation 40.2 fL (36.4-46.3); Red Blood Count 4.82 M/uL (3.93-5.22); White Blood Count 9.87 K/ul (4.8-10.8)
[2022-08-22] MEDS: INSULIN ASPART PER UNIT SC SCH ×4 (07:15→21:17)
[2022-08-22] MEDS: ADVANCED PROBIOTIC 1250 MG CAPSULE PO SCH (07:37)
[2022-08-22] MEDS: PANTOprazole 40 MG TAB PO SCH (07:37)
[2022-08-22] MEDS: DICLOFENAC SOD 1% GEL 100 GM TUBE EXT SCH ×2 (07:37→20:21)
[2022-08-22] MEDS: POLYETHYLENE (MIRALAX) 17 GM PACK PO SCH (07:38)
[2022-08-22] MEDS: DOCUSATE SODIUM/SENNA 50/8.6MG TAB PO SCH (07:38)
[2022-08-22] MEDS: LANTUS PER UNIT CHARGE SQ SCH ×2 (08:09→21:17)
[2022-08-22 09:34] LABS: Albumin Level 4.1 gm/dl (3.4-5.0); BUN Creatinine Ratio 27.4 (10-20); Bilirubin Direct 0.2 mg/dl (0-0.2); Bilirubin,Total 0.7 mg/dl (0.2-1.0); Calcium 9.7 mg/dl (8.5-10.1); Creatinine Clr Calc Pharmacy 76.2 ml/min; Est GFR (African American) 99.4 ml/min; Est GFR (Non-African American) 85.8 ml/min; Potassium 3.7 mmol/L (3.5-5.1); Total Protein 7.3 gm/dl (6.0-8.3)
[2022-08-22] MEDS: ENOXAPARIN INJ 40 MG/0.4 ML SYR SQ SCH ×2 (09:40→21:09)
--- NOTE | 2022-08-22 13:01 | Hospitalist Progress Note ---
Date of Service August 22, 2022 Assessment & Plan (1) Liver lesion: Plan: -New liver lesions noted on CT of the abdomen and pelvis along with pathologic L5 vertebral fracture and lung lesions -Primary source is unknown at this time, could be lungs, given history of s moking -Core biopsy has been obtained by IR, will send for next generation sequencing, hopefully result by tuesday -[facility] on board (2) Pathologic lumbar vertebral fracture: Plan: -Noted on CT Extensive multifocal marrow replacement consistent with metastatic disease. L4 and L5 pathologic fractures with mild loss of height. Possible minimal epidural extension of tumor at the L4 and L5 levels -Also Severe central canal stenosis at L4-L5 due to facet arthrosis, ligamentous hypertrophy and anterolisthesis with uncovering of the disc. - Mild to moderate central canal stenosis at L3-L4. 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 Mediastinal involvement which results in moderate SVC narrowing due to invasion. Pulmonolgy on consult (4) Hyponatremia: Plan: could be SIADH from lung mass fluid restriction to 1500cc/day (5) Type 2 diabetes mellitus: Plan: -Hold metformin -Will start with lantus, 5 units BID -Correction factor of 50 -Adjust regimen as needed (6) Hyperlipidemia: Plan: -Continue statin (7) Hypertension: Plan: -Continue lisinopril (8) SVT (supraventricular tachycardia): Plan: overnight patient developed suspected SVT, with rates in the 150's Resolved after carotid massage patient admits she has had SVt's in the past Monitor on tele Plan continue hospitalization, Palliative on board for goals of care Admission and Anticipated Discharge Date Admission Date: August 17, 2022 Subjective patient seen and examined, no new complaints, awaiting the result of the biopsy, sitting up in the chair Review of Systems Review of Systems: All systems reviewed are negative, apart from the ones contained in the history. Physical Exam Physical Exam: The patient is awake, alert and oriented 3, well developed and well nourished, normocephalic and atraumatic, lying in bed and in no acute distress. HEENT--PERRL, EOMI, mucous membranes and oropharynx mildly dry Neck--supple. No JVD. No bruits. Thyroid normal, trachea midline, no adenopathy. Heart--normal S1 and S2. No murmurs, rubs or gallops. Lungs--clear bilaterally, no respiratory distress, no accessory muscle use. Abdomen--normal bowel sounds and soft. Mild epigastric and left sided abdominal pain Extremities--no cyanosis or clubbing. No edema. Dermatologic--normal skin turgor, normal color, no abnormal lymph nodes, no rash. Neurologic--cranial nerves II through XII grossly intact. Rheumatologic--normal range of motion. Psychiatric--normal affect. Results & Data Results & Data ([facility]) Vital Signs (Past 12 Hours) Vital Signs Temp Pulse Pulse Resp BP BP Pulse Ox 08/22/22 11:15 98.2 F 86 19 103/64 92 08/22/22 08:30 146 H 08/22/22 07:05 98.2 F 143 H 19 106/57 L 95 08/22/22 03:07 98.1 F 146 H 24 123/88 95 08/22/22 05:33 08/22/22 05:13 142 H 08/22/22 04:53 97.9 F 90 18 156/96 H 94 O2 Del Method O2 Flow Rate 08/22/22 11:15 Room Air 08/22/22 08:30 08/22/22 07:05 Room Air 08/22/22 03:07 Room Air 08/22/22 05:33 Nasal Cannula 2 08/22/22 05:13 08/22/22 04:53 Nasal Cannula 2 PG Care Time/CCT Total # of Minutes Spent Total Time Spent with Patient: Total time spent is greater than 50% in coordination of care (as documented) at patient's floor/unit and/or counseling patient: Coding Level of Care Code 42465 Subseq Hosp Care Lvl 2 Diagnoses Liver lesion K76.9 Pathologic lumbar vertebral fracture M84.48XA Lung collapse J98.19 Hyponatremia E87.1 Type 2 diabetes mellitus E11.9 Hyperlipidemia E78.5 Hypertension I10 SVT (supraventricular tachycardia) I47.1 Time Spent (min) 35
[2022-08-22] MEDS ORDERED: ADENOSINE IV SOLN 3 MG/ML 2 ML VIAL IV STA (16:42)
[2022-08-22] MEDS: traMADol HCL 50 MG TABLET PO PRN (18:41)
[2022-08-22] MEDS: SIMVASTATIN 40 MG TAB PO SCH (20:21)
[2022-08-23] MEDS: traMADol HCL 50 MG TABLET PO PRN (01:50)
[2022-08-23] MEDS: MoRPHine SULFATE 2 MG/ML CARP IV PRN (02:56)
[2022-08-23 06:57] LABS: Hematocrit (blood only) 39.3 % (34.1-44.9); Hemoglobin 13.4 g/dl (12.0-16.0); Mean Corpuscular Hemoglobin 28.8 pg (25.0-34.0); Mean Corpuscular Hgb Conc 34.1 g/dL (32.0-36.0); Mean Corpuscular Volume 84.5 fL (80.0-100.0); Mean Platelet Volume 10.1 fL (9.4-12.3); Platelet Count 396 K/uL (130-400); RDW Coefficient of Variation 13.4 % (11.5-14.5); RDW Standard Deviation 41.3 fL (36.4-46.3); Red Blood Count 4.65 M/uL (3.93-5.22); White Blood Count 9.28 K/ul (4.8-10.8)
[2022-08-23] MEDS: INSULIN ASPART PER UNIT SC SCH ×4 (07:11→20:28)
[2022-08-23 07:52] LABS: BUN Creatinine Ratio 26.4 (10-20); Calcium 9.7 mg/dl (8.5-10.1); Creatinine Clr Calc Pharmacy 65.8 ml/min; Est GFR (African American) 92.3 ml/min; Est GFR (Non-African American) 79.7 ml/min; Potassium 3.7 mmol/L (3.5-5.1)
--- NOTE | 2022-08-23 07:53 | Electrocardiogram Report ---
Test Reason : Blood Pressure : / mmHG Vent. Rate : 142 BPM Atrial Rate : 159 BPM P-R Int : 000 ms QRS Dur : 088 ms QT Int : 300 ms P-R-T Axes : 000 026 224 degrees QTc Int : [address] depression, consider subendocardial injury Nonspecific T wave abnormality Abnormal ECG When compared with ECG of 17-AUG-2022 16:33, Vent. rate has increased BY [address] now depressed in Lateral leads Nonspecific T wave abnormality now evident in Inferior leads Nonspecific T wave abnormality, worse in Lateral leads Confirmed by Enzo Watson ([id number]) on 08/23/2022 7:53:21 AM Referred By: Shanti Watts Confirmed By:Enzo Watson
--- NOTE | 2022-08-23 07:54 | Electrocardiogram Report ---
Test Reason : Blood Pressure : / mmHG Vent. Rate : 094 BPM Atrial Rate : 094 BPM P-R Int : 168 ms QRS Dur : 072 ms QT Int : 324 ms P-R-T Axes : 009 025 052 degrees QTc Int : 405 ms Sinus rhythm with occasional Premature atrial complexes Nonspecific ST abnormality Abnormal ECG When compared with ECG of 22-AUG-2022 03:09, Vent. rate has decreased BY [address] depression in Anterior leads less pronounced Confirmed by Enzo Watson ([id number]) on 08/23/2022 7:54:04 AM Referred By: Shanti Watts Confirmed By:Enzo Watson
--- NOTE | 2022-08-23 07:56 | Electrocardiogram Report ---
Test Reason : Blood Pressure : / mmHG Vent. Rate : 101 BPM Atrial Rate : 101 BPM P-R Int : 146 ms QRS Dur : 066 ms QT Int : 330 ms P-R-T Axes : 004 028 061 degrees QTc Int : 427 ms Sinus tachycardia Left atrial enlargement Borderline ECG When compared with ECG of 22-AUG-2022 03:22, ST depression in Anterior leads no longer present Confirmed by Enzo Watson ([id number]) on 08/23/2022 7:55:41 AM Referred By: Shanti Watts Confirmed By:Enzo Watson
--- NOTE | 2022-08-23 08:04 | Electrocardiogram Report ---
Test Reason : Blood Pressure : / mmHG Vent. Rate : 151 BPM Atrial Rate : 147 BPM P-R Int : 000 ms QRS Dur : 088 ms QT Int : 288 ms P-R-T Axes : 000 024 177 degrees QTc Int : [address] depression in multiple leads, may be rate related Abnormal ECG When compared with ECG of 22-AUG-2022 09:29, Vent. rate has increased BY [address] now depressed in multiple leads Confirmed by Enzo Watson ([id number]) on 08/23/2022 8:03:55 AM Referred By: Shanti Watts Confirmed By:Enzo Watson
[2022-08-23] MEDS: LANTUS PER UNIT CHARGE SQ SCH ×2 (08:13→20:28)
[2022-08-23] MEDS: DICLOFENAC SOD 1% GEL 100 GM TUBE EXT SCH ×2 (08:14→20:26)
[2022-08-23] MEDS: ADVANCED PROBIOTIC 1250 MG CAPSULE PO SCH (08:14)
[2022-08-23] MEDS: PANTOprazole 40 MG TAB PO SCH (08:14)
[2022-08-23] MEDS: DOCUSATE SODIUM/SENNA 50/8.6MG TAB PO SCH ×2 (08:16→08:24)
[2022-08-23] MEDS: POLYETHYLENE (MIRALAX) 17 GM PACK PO SCH (08:24)
[2022-08-23] MEDS ORDERED: lisinopril 40 MG TAB PO SCH (09:00)
--- NOTE | 2022-08-23 09:31 | Radiation Oncology Progress Nt ---
Date of Service August 23, 2022 Assessment & Plan (1) Small cell lung cancer: Plan: Assessment/Plan: 77-year-old white female currently hospitalized with back pain. Studies have revealed a lung mass. She has liver and bone metastasis. Liver biopsy was performed and has shown small cell carcinoma of the lung primary. She is being followed by medical oncology. CT has shown early SVC. Medical oncology has been in contact with Dr. Romero. Plans are to urgently begin chemotherapy. She was transferred to telemetry due to supraventricular tachycardia over the weekend. She will have a feeling of palpitations and can tell that her heart rate is high. This was controlled with carotid sinus massage. Cardiology has seen her today and are planning to start her on a beta- yohan. Today she rates her pain level at 4. She has some pain of the left hip as well as across the lower back. She has some discomfort in her lower neck. Brain MRI has been discussed. We will continue to follow her in the electronic medical records. Time spent. Midlevel. I spent [10] minutes in preparation for this follow up evaluation including reviewing all the clinical records, reviewing laboratory studies, pathology reports and imaging results. I spent [20] minutes with direct face to face interaction with the patient and/or family including performing a physical exam and answering all questions. I spent [10] minutes documenting this patient's visit. I spent [5] speaking with the following providers regarding this patient's care: [Dr. Watson]. Plan ATTENDING ADDENDUM: The patient's case was discussed with the midlevel provider. I agree with the note documented. I did communicate with Dr. Hogan from medical oncology and the recommendation is for upfront chemotherapy given the diagnosis of metastatic small cell carcinoma. Hopefully upfront chemotherapy should help treat her mediastinal disease causing mild compression of SVC as well as her lower lumbar spine pain. Completion of staging work-up including MRI brain should also be completed. At this point, there is no role for radiation therapy. Please call us if there is any further questions regarding the care of this patient. Admission and Anticipated Discharge Date Admission Date: August 17, 2022 Subjective Development of low back pain approximately 6 weeks ago. This is steadily increased. Pain radiates towards the left hip and thigh. She gives a pain level of 6-7. With movement the pain will increase to 8. She has seen her primary care provider who ordered x-rays. 08/17/2022. X-ray of the left hip and pelvis. No acute fracture within the pelvis or hips. Mild bilateral hip osteoarthritis. 08/17/2022. CT of the abdomen and pelvis. Numerous ring-enhancing hypodense lesions in the liver are concerning for metastatic disease in this patient status post hemicolectomy. No evidence of diverticulitis. There is nodularity of the adrenal glands bilaterally, nonspecific. Thickening of gastric wall may be secondary to undistended, clinical correlation for gastritis is recommended. Lytic lesion arising from the right aspect of the L5 vertebral body with an associated soft tissue mass and pathologic fracture. 08/17/2022. With these findings she was advised by the primary care provider to report to the emergency room for control of pain and further evaluation to determine source of metastatic disease. 08/18/2022. CT chest. 1. Right upper lobe mass consistent with central bronchogenic carcinoma which occludes the right upper lobe bronchus and results in subtotal right upper lobe collapse. Mediastinal involvement which results in moderate SVC narrowing due to invasion. Pulmonary consultation is recommended. 2. Associated jolene, hepatic, adrenal and skeletal metastases, as detailed above. 3. Emphysema. 4. Trace right pleural effusion. 08/18/2022. MRI cervical spine. 1. Multiple scattered metastatic lesions seen throughout the cervical spine. No pathologic fractures or epidural extension at this time. 2. Partial visualization of the patient's known right upper lobe mass. 08/18/2022. MRI thoracic spine. 1. Multiple scattered metastatic lesions seen throughout the thoracic spine. No pathologic fractures or epidural involvement at this time. 2. Partial visualization of the patient's known right upper lobe mass and hepatic lesions. 08/18/2022. MRI lumbar spine. 1. Extensive multifocal marrow replacement consistent with metastatic disease. L4 and L5 pathologic fractures with mild loss of height. Possible minimal epidural extension of tumor at the L4 and L5 levels, as described above. Post contrast images compromised by motion artifact. No large epidural component. 2. Severe central canal stenosis at L4-L5 due to facet arthrosis, ligamentous hypertrophy and anterolisthesis with uncovering of the disc. Mild to moderate central canal stenosis at L3-L4. 3. Multilevel neural femoral stenosis, as above. 08/19/2022. Liver biopsy ultrasound. Consistent with metastatic small cell carcinoma. 08/19/2022. Palliative care consultation. 09/15/2022. Medical oncology follow-up note by Dr. Hogan. Await results from tissue diagnosis. Chemotherapy and/or radiation therapy may be needed. Review of Systems Review of Systems: 13 point review of systems completed. All documentation is in history of present illness. Physical Exam Constitutional: WD/WN, vitals as above ENMT: No facial edema noted. Neck: No edema noted. Respiratory: normal respiratory effort, lungs clear to auscultation Cardiovascular: Rate/Rhythm: + tachycardic Skin: no rashes, warm and dry Psychiatric: A+Ox3, euthymic affect Results & Data ([facility]) Vital Signs (Past 12 Hours) Vital Signs Temp Pulse Pulse Resp BP Pulse Ox O2 Del Method 08/23/22 08:44 36.6 C 155 H 18 119/80 95 Room Air 08/23/22 08:38 74 08/23/22 02:49 36.6 C 160 H 20 107/76 96 Room Air 08/23/22 01:32 75 08/23/22 00:00 36.4 C L 81 18 120/74 96 Room Air Laboratory Results Name:WINNIE THOMSON Age/Sex: 77/F Location: MR#: [id number] : 1945 Rm/Bed:[facility] Subm. Phys.:Valentino Keating MD Case #:[id number] Collected: 08/19/22 Received: 08/19/22 Copies To Alyson Elkins D.O. [place], [place] N., MD FINAL DIAGNOSIS Liver, lesion, core biopsy: - Metastatic small cell carcinoma Comment: Given the recent CT finding of a concerning lung mass in a smoker, this is clinically suggestive of metastatic small cell carcinoma of lung primary. Please note that a definitive site of origin cannot be determined immunohistochemically for metastatic small cell carcinomas. at 1438. Diagnostic Findings CT OF THE CHEST WITH IV CONTRAST CLINICAL HISTORY: Cancer staging. COMPARISON STUDY: Chest radiograph May 20, 2015. TECHNIQUE: Following IV administration of 94 mL of Optiray, helical axial images of the chest were obtained. Sagittal and coronal reconstructions were viewed as well as maximal intensity projections on an independent 3-D workstation. Automated exposure control was utilized for the study. A dose lowering technique was utilized adhering to the principles of ALARA. CT DOSE: 439.68 mGy.cm FINDINGS: There is near-complete right upper lobe collapse. This is due to a central obstructing right upper lobe mass with mediastinal involvement. This mass is difficult to measure given adjacent collapsed lung. The mass measures approximately 6 x 5.8 cm and invades the SVC with moderate narrowing. There is associated pathologic mediastinal and right hilar adenopathy. Index right paratracheal lymph node measures 2.5 x 1.7 cm. Index subcarinal node measures 2.2 x 1.6 cm. Right hilar adenopathy is partially obscured. The mass results in occlusion of the right upper lobe bronchus. There is moderate narrowing of the middle lobe bronchi as well due to adenopathy. There is no pneumothorax. A trace right pleural effusion is present. Moderate emphysema is noted. There is dilatation of the central pulmonary arteries. Extensive mitral annular calcification is present. There is no pericardial effusion. No central pulmonary emboli are identified. Remainder of the pulmonary arteries are suboptimally opacified. There is a possible lytic lesion measuring 8 mm within the right posterior aspect of the T12 vertebral body. Numerous hepatic metastases measure up to 4.7 cm. A 1.5 cm left adrenal nodule is noted. Small right adrenal nodule is present. IMPRESSION: 1. 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 Mediastinal involvement which results in moderate SVC narrowing due to invasion. Pulmonary consultation is recommended. 2. Associated jolene, hepatic, adrenal and skeletal metastases, as detailed above. 3. Emphysema. 4. Trace right pleural effusion. ACT 112: Positive. There are findings on this exam that require communication between the performing entity and the patient following Patient Test Result Information Act ([place] Act 112) guidelines. Electronically signed by: Elan Dotson M.D. 08/18/2022 3:29 PM Dictated: 08/18/22 1500Transcribed: 08/18/22 1520 [place], [place] [phone] Magnetic Resonance Report Patient:WINNIE THOMSON Admit Date:08/17/22 MR#:[id number] Address1:[address] [place] [address] Acct ID:[id number] Address2: Date:1945 [facility] Zip:[place] [address] Age:77 Location:3W Sex:F Room/Bed:[facility] Att Phy:Valentino Keating MD Diagnosis:HYPONATREMIA Amanda Phy:Delbert Miramontes MD Service Date:08/18/22 Fam Phy: Interpreting Phy:Elan Dotson MDAdmit Phy:Alyson Elkins D.O. Ordering Phy:Tiffanie Smith cc: ~ MRI OF THE LUMBAR SPINE WITH AND WITHOUT CONTRAST CLINICAL HISTORY: Evaluate L5 pathologic fx. COMPARISON STUDY: CT of the abdomen and pelvis August 17, 2022. TECHNIQUE: Utilizing a 1.5 Elisa magnet and dedicated coil, multiplanar, multiecho imaging of the lumbar spine was performed before and after uneventful IV administration of 9 mL of Gadavist. FINDINGS: For purposes of numbering on this exam, the L5-S1 disc space is assigned to axial image 27 of 30. There is 4 mm of anterolisthesis of L4 and L5. Survey Supervisor images demonstrate multiple hepatic lesions consistent with metastases. Extensive multifocal marrow replacement is noted within the lower thoracic spine, lumbar spine, sacrum and visualized portions of the pelvis. The conus terminates at the mid L1 level. There is possible minimal epidural extension of tumor posterior to the L4 vertebral body. Enhancement posterior to the L5 vertebral body probably reflects prominent epidural venous plexus. Postcontrast images are compromised by motion artifact. Mild loss of height of the superior endplates of L4 and L5 represent pathologic fractures. No additional pathologic fractures are identified within the lumbar spine. Paravertebral soft tissues are unremarkable. L1-2: The central canal and neural foramen are patent. There is mild facet arthrosis. L2-3: There is moderate facet arthrosis. There is minimal disc bulge. There is mild narrowing of the central canal and lateral recesses. The neural foramen are patent. L3-4: There is severe facet arthrosis. There is ligamentous hypertrophy. Findings result in mild to moderate central canal stenosis. Neural foramen are patent. L4-5: Anterolisthesis is noted with uncovering of the disc. There is severe facet arthrosis with ligamentous hypertrophy. Findings result in severe narrowing of the central canal. Patent AP diameter canal is 3 mm. There is also moderate both lateral recesses and the bilateral neural foramen. L5-S1: Moderate facet arthrosis is present. Central canal and neural foramen are patent. IMPRESSION: 1. Extensive multifocal marrow replacement consistent with metastatic disease. L4 and L5 pathologic fractures with mild loss of height. Possible minimal epidural extension of tumor at the L4 and L5 levels, as described above. Post contrast images compromised by motion artifact. No large epidural component. 2. Severe central canal stenosis at L4-L5 due to facet arthrosis, ligamentous hypertrophy and anterolisthesis with uncovering of the disc. Mild to moderate central canal stenosis at L3-L4. 3. Multilevel neural femoral stenosis, as above. ACT 112: Negative or not required by law. Electronically signed by: Elan Dotson M.D. 08/19/2022 8:09 AM Dictated:08/19/22 0759 Transcribed: 08/19/22 0759 [place], [place] [phone] Magnetic Resonance Report Patient:WINNIE THOMSON Admit Date:08/17/22 MR#:[id number] Address1:[facility] Acct ID:[id number] Address2: Date:1945 [facility] Zip:[place] [address] Age:77 Location:3W Sex:F Room/Bed:[facility]4-1 Att Phy:Valentino Keating MD Diagnosis:HYPONATREMIA Amanda Phy:Delbert Miramontes MD Service Date:08/18/22 Fam Phy: Interpreting Phy:Yury David MDAdmit Phy:Alyson Elkins D.O. Ordering Phy:Tiffanie Smiht cc: ~ CERVICAL SPINE MRI WITH AND WITHOUT CONTRAST HISTORY: Right upper lobe mass. neck pain; eval for mets; L5 pathologic fx TECHNIQUE: Multiplanar multisequence MRI of the cervical spine was performed both before and after the use of intravenous contrast. COMPARISON STUDY: Chest CT 08/18/2022. FINDINGS: There is mild motion artifact. Partial visualization of the patient's known right upper lobe mass. The visualized posterior fossa is unremarkable. The cervical spinal cord demonstrates a normal signal intensity. The prevertebral soft tissues and C1-C2 interval are intact. Moderate disc space narrowing at C4- C5 and C5-C6. Broad-based posterior disc bulges with small focal central disc protrusions at C4-C5 and C5-C6 resulting in [id number] central canal narrowing. There is also bilateral severe neural foraminal narrowing at these levels. There is mild central canal narrowing at C3-C4 and C6-C7 due to the disc bulges. Moderate facet degenerative changes throughout the cervical spine. No fracture or subluxation. Multiple scattered T2 hyperintense, T1 hypointense enhancing lesions seen throughout the majority of the cervical spine. This is most pronounced at the C2 and C3 vertebral bodies. No epidural soft tissue component or pathologic fracture identified at this time. IMPRESSION: 1. Multiple scattered metastatic lesions seen throughout the cervical spine. No pathologic fractures or epidural extension at this time. 2. Partial visualization of the patient's known right upper lobe mass. ACT 112: Negative or not required by law. Electronically signed by: Yury David M.D. 08/19/2022 9:10 AM Dictated:08/19/22903 Transcribed: 08/19/22903 [place], [place] [phone] Magnetic Resonance Report Patient:WINNIE THOMSON Admit Date:08/17/22 MR#:[id number] Address1:[address] [place] [address] Acct ID:[id number] Address2: Date:1945 [facility] Zip:[place] [address] Age:77 Location:3W Sex:F Room/Bed:[facility] Att Phy:Valentino Keating MD Diagnosis:HYPONATREMIA Amanda Phy:Delbert Miramontes MD Service Date:08/18/22 Fam Phy: Interpreting Phy:Yury David MDAdmit Phy:Alyson Elkins D.O. Ordering Phy:Tiffanie Smith cc: ~ THORACIC SPINE MRI WITH AND WITHOUT CONTRAST HISTORY: Known right upper lobe mass. eval for mets; L5 pathologic fx TECHNIQUE: Multiplanar multisequence MRI of the thoracic spine was performed both before and after the intravenous administration of contrast. COMPARISON: Chest CT 08/18/2022. FINDINGS: Partial visualization of the patient's known right upper lobe mass and hepatic lesions. There are multiple scattered T2 hyperintense, T1 hypointense enhancing lesions seen throughout the thoracic spine consistent with metastatic disease. No pathologic fractures identified. No epidural soft tissue extension. This spaces are preserved. The thoracic spinal cord is normal and course, caliber, and signal intensity. No significant central canal or neural foraminal narrowing. Suboptimal evaluation of the postcontrast sequences due to the motion artifact. IMPRESSION: 1. Multiple scattered metastatic lesions seen throughout the thoracic spine. No pathologic fractures or epidural involvement at this time. 2. Partial visualization of the patient's known right upper lobe mass and hepatic lesions. ACT 112: Negative or not required by law. Electronically signed by: Yury David M.D. 08/19/2022 9:13 AM Dictated:08/19/2210 Transcribed: 08/19/22909
[2022-08-23] MEDS: ENOXAPARIN INJ 40 MG/0.4 ML SYR SQ SCH ×2 (10:40→20:32)
[2022-08-23] MEDS: MoRPHine SULFATE 5 MG/0.25 ML UDP PO PRN (12:37)
[2022-08-23] MEDS ORDERED: METOPROLOL SUCC 25MG EXT REL TAB PO STA (12:49)
--- NOTE | 2022-08-23 12:57 | Cardiology Consultation ---
Date of Consultation August 23, 2022 Assessment & Plan (1) SVT (supraventricular tachycardia): (2) Small cell lung cancer: (3) Metastatic cancer: Plan Unfortunate 77-year-old woman with newly diagnosed metastatic cancer (likely lung primary) which involves her mediastinum. Likely this is the cause of some degree of cardiac irritation causing a supraventricular tachycardia, which fortunately is only mildly symptomatic. Would recommend discontinuing lisinopril (to avoid hypotension) and initiating metoprolol 25 mg PO every 6 hours, this could be titrated as needed and changed to long-acting once a day agent upon discharge. Unclear if the SVT is due to an ectopic atrial focus, AV jolene reentry, or atrial flutter, but regardless of etiology would feel that she is a poor anticoagulation candidate with her metastatic cancer which includes lytic lesions, mediastinal involvement, and multiple organs. Even if the rhythm were to be atrial flutter, the short-term risk is low, most of the thromboembolic risk in atrial flutter is due to the ultimate deterioration due to atrial fibrillation, which may not be relevant consideration given the limited timeframe that is likely to be applicable in this situation. If she does develop recurrent tachycardia refractory to metoprolol, would have low threshold for changing to amiodarone, since once again long-term side effects are of minimal concern in the context of widely metastatic cancer. Will check echocardiogram for additional prognostic information, fortunately does not appear that she has a pericardial effusion on CT, but assessing her LV systolic function will be helpful in gauging her tolerance for chest radiation and/or chemotherapy. Will ask our cardiology team to follow along to monitor success in suppressing SVT, Dr. Louis will be rounding as of tomorrow. History of Present Illness Reason for Consultation: SVT Requesting Physician: Arturo Roach MD Attending Physician: Arturo Roach MD History of Present Illness 77-year-old woman with no cardiac history who was admitted 08/17/2022 with hyponatremia and low back pain after she was found on CT imaging to have apparent newly diagnosed metastatic cancer, she subsequently had several episodes of tachypalpitations which appear to be a supraventricular tachycardia in the 140-150 bpm range. Of note, chest CT shows right upper lobe mass with mediastinal involvement and some degree of SVC narrowing. Echocardiogram to evaluate cardiac involvement is pending. Telemetry shows sinus rhythm at 60-70 bpm with intermittent SVT occurring frequently, ECG is inconclusive as there are no clear flutter waves or evidence of an rR prime to suggest AVNRT. She describes a sense of rapid heartbeat but has no chest discomfort, dyspnea, nausea, diaphoresis, or other associated symptoms during the episodes of tachycardia. Time of my evaluation, she was noting a subjective sense of elevated heart rate, no other somatic complaints. Allergies Allergy/AdvReac Type Severity Reaction Status Date / Time No Known Allergies Allergy Verified 08/17/22 07:42 Home Medications Medication Instructions Recorded Confirmed Type Lactobacillus rhamnosus GG 10 1 cap PO QAM 10/15/19 08/17/22 History billion cell capsule (Culturelle) acetaminophen 500 mg tablet 1,000 mg PO QID PRN Fever Or Pain 10/15/19 08/17/22 History (Tylenol Extra Strength) cranberry extract 200 mg capsule 400 mg PO DAILY 12/09/20 08/17/22 History simvastatin 40 mg tablet (Zocor) 40 mg PO QPM #90 tabs 09/28/21 08/17/22 Rx omeprazole 20 mg capsule,delayed 20 mg PO QAM #90 caps 10/21/21 08/17/22 Rx release blood sugar diagnostic (OneTouch #100 ea 11/16/21 08/17/22 Rx Verio test strips) OneTouch Delica Lancets 33 gauge #100 ea 07/19/22 08/17/22 Rx (lancets) lisinopril 40 mg tablet 40 mg PO DAILY 08/17/22 08/17/22 History metformin 500 mg tablet,extended 1,000 mg PO BID 08/17/22 08/17/22 History release 24 hr Patient History Medical History Alcohol intoxication Blood loss History of cigarette smoking Hyperlipidemia Hypertension Hypotension Open tibial fracture Sensorineural hearing loss of both ears Type 2 diabetes mellitus Surgical History History of ankle surgery broken ankle-2014 at [facility] History of appendectomy History of hemicolectomy January 2016--[facility] History of tonsillectomy History of tubal ligation Family History Sister Primary adenocarcinoma of vagina Father Asthma Hypertension Macular degeneration Pulmonary embolism Mother Emphysema lung Brother Macular degeneration Denies family history of Ovarian cancer Prostate cancer Myocardial infarction Breast cancer Colorectal cancer Social History Smoking Status: Former smoker Tobacco Type: Cigarettes packs per day: 2; Years Smoked: 45; Smoking End Date: quit 7 years ago; Second Hand Exposure: No; Hx Alcohol Use: No (stopped 7 years ago) Hx Substance Use: No Preferred Language: Slovak Communication Ability: Effective Visual Impairment: Limited Hearing Ability: Normal Spine Supervisor Required: No Beliefs That Will Affect Care: None marital status: Current Living Situation: Spouse current occupational status: retired How many Children do You have: 2 Other Information That Helps Us Care for You: No Feels Safe at Home: Yes Safety Concerns: Feels Safe At This Time Childhood Exposure to Second-Hand Smoke: Yes caffeine: Yes (coffee 4 cups a day ) Dental Care, Regularly: Yes Physical Activity Frequency: Daily Physical Activity Frequency Comment: bicycle Seatbelt Use: always Sunscreen Use: Yes Assistive Devices: Cane and Walker Physical Exam Physical Exam: Normal habitus adult white female in no acute distress. Afebrile. Normotensive. Pulse currently in the 140-150 bpm range and regular. Skin: no ecchymoses or generalized lesions. HEENT: unremarkable. Neck: no JVD or carotid bruits. Lungs: clear bilaterally. Cardiac: regular/tachycardic rhythm, no obvious murmur or gallop. Abdomen: benign. Extremities: no edema, pulses intact. Neurologic: normal affect and conversation, nonfocal. Results & Data ([facility]) Vital Signs (Past 12 Hours) Vital Signs Temp Pulse Pulse Resp BP Pulse Ox O2 Del Method 08/23/22 11:21 97.3 F L 149 H 19 110/76 92 Room Air 08/23/22 08:44 97.9 F 155 H 18 119/80 95 Room Air 08/23/22 08:38 74 08/23/22 02:49 97.9 F 160 H 20 107/76 96 Room Air 08/23/22 01:32 75 Laboratory Results Sodium 134, chloride 97, potassium 3.7, BUN 19, creatinine 0.72. Diagnostic Findings ECGs show supraventricular tachycardia 140-150 bpm with some degree of anterior/global ST depression. ECGs when she has not an SVT show only sinus rhythm with left atrial enlargement and are unremarkable. Chest CT shows right upper lobe mass with mediastinal involvement and SVC narrowing. There is no pericardial effusion, there is trace right pleural ef fusion and dilation of the central pulmonary arteries. Extensive mitral annular calcification noted. PG Care Time/CCT Total # of Minutes Spent Total Time Spent with Patient: Total time spent is greater than 50% in coordination of care (as documented) at patient's floor/unit and/or counseling patient: Coding Level of Care Code 81354 Initial Inpt Care Lvl 3 Diagnoses SVT (supraventricular tachycardia) I47.1 Small cell lung cancer C34.90 Metastatic cancer C79.9
--- NOTE | 2022-08-23 13:09 | XCELERA ---
[id number]
--- NOTE | 2022-08-23 15:21 | Palliative Care Progress Note ---
Date of Service August 23, 2022 Assessment & Plan (1) Palliative care encounter: (2) Cancer related pain: Plan: * Stop tramadol * Increase to MSIR 15mg PO q4h/hold for somnolence or resp rate below 14/min * Continue prn IV MS for severe pain unrelieved by oral med * Orders written (3) Small cell lung cancer: Plan: Patient would like to begin cancer directed therapies. She is asking several appropriate questions about timing, sequence fo therapies, are additional tests needed, etc. She is hopeful another MRI is not needed - positioning for over 2 hr on table was severely painful. I have asked med onc and rad onc for update. (4) SVT (supraventricular tachycardia): Plan: Adenosine given, awaiting effect Plan As noted above. We will continue to follow. I will manage her cancer related pain and symptoms in outpatient [facility] clinic. Ca Shaw DNP Clinical Director, Palliative Medicine Admission and Anticipated Discharge Date Admission Date: August 17, 2022 Subjective Cancer related pain is not well controlled. Feels no relief with tramadol. Moprhoine 5mg PO is helping but not enough. MS IV helps more/right away but does not last. She would like a regimen she can go home on. +constipation, now improved with rx, several BMs on Tuesday and another this AM. No n/v/d Today having more issues with SVT, "my racing heart is making me so nercous," she has had a dose of adenosine, hoping it will nicole she is aware of her SCLC diagnosis and would like to begin therapy lou. Review of Systems Review of Systems: All systems reviewed & are unremarkable except as noted in HPI & below Physical Exam Constitutional: well groomed and cooperative Eyes: PERRL, conjunctivae normal, anicteric sclerae ENMT: external ear and nose normal, oropharynx normal Mouth: + chipped teeth Neck: trachea midline, no thyromegaly Respiratory: no respiratory distress and no cough Auscultation: + diminished lung sounds (Decreased breath sounds at apices.) Cardiovascular: Rate/Rhythm: + tachycardic Vessels: normal peripheral pulses Extremities: normal capillary refill Gastrointestinal (Abdomen): normal bowel sounds, soft, nontender, no hepatosplenomegaly Skin: no rashes, warm and dry Neurologic: Gait not assessed due to pathologic fx. strength intact but some weakness. pt is AAOx3 Psychiatric: Orientation: alert and oriented x 3 Apperance: appropriately dressed Eye Contact: good eye contact Affect: + anxious affect Mood: + anxious mood Thought Process: goal directed thought process and linear/logical thought process Cognition: recent memory grossly intact, remote memory grossly intact, attention grossly intact and language grossly intact Insight: excellent insight Judgement: excellent judgement Results & Data ([facility]) Vital Signs (Past 12 Hours) Vital Signs Temp Pulse Pulse Resp BP Pulse Ox O2 Del Method 08/23/22 11:21 36.3 C L 149 H 19 110/76 92 Room Air 08/23/22 08:44 36.6 C 155 H 18 119/80 95 Room Air 08/23/22 08:38 74 PG Care Time/CCT Total # of Minutes Spent Total Time Spent: 60 Total Time Spent with Patient: Total time spent is greater than 50% in coordination of care (as documented) at patient's floor/unit and/or counseling patient:45min spent in discussion with pt re cancer diagnosis, pain mgt and constipation strategies, her goals and priorities at this time and desire to begin tx immediately. Coding [place] [address] Subseq Hosp Care Lvl 3 Patient Type Established History Detailed Exam Detailed Medical Decision Making Moderate Complexity Diagnoses Palliative care encounter Z51.5 Cancer related pain G89.3 Small cell lung cancer C34.90 SVT (supraventricular tachycardia) I47.1
[2022-08-23] MEDS: MoRPHine SULFATE IR 15 MG TAB (IMMEDIATE RELEASE) PO PRN (16:55)
[2022-08-23] MEDS ORDERED: GADOBUTROL 65ML VIAL IV ONE (17:37)
--- NOTE | 2022-08-23 18:24 | Magnetic Resonance Report ---
MRI OF THE BRAIN WITHOUT AND WITH IV CONTRAST CLINICAL HISTORY: Small cell lung cancer. Evaluate for metastatic disease. COMPARISON STUDY: No previous studies for comparison. TECHNIQUE: Utilizing a 1.5 Elisa magnet and dedicated coil, multiplanar, multiecho imaging of the br ain was performed pre and postcontrast administration. IV administration of Gadavist contrast was un eventful. Thin cut T1 post contrast imaging was performed. FINDINGS: There are no foci of restricted diffusion to suggest acute infarct. No acute intracranial h emorrhage, midline shift or mass effect is present. Ventricular system is unremarkable. Basal cistern s are patent. There are no extra-axial collections. Flow-voids for the major intracranial vessels are present. White matter T2 hyperintense foci suggest small vessel disease. Note is made of multifocal marrow replacement within the calvarium and visualized portions of the cervical spine. There is dural thickening and enhancement associated with a right parietal lesion. Note is made of a 5 mm intra-axi al enhancing lesion within the left cerebellar hemisphere. This has mild associated vasogenic edema. No additional parenchymal lesions are identified. IMPRESSION: 1. 5 mm enhancing lesion within left cerebellar hemisphere suggestive of a metastasis. Mild associate d vasogenic edema. 2. Numerous calvarial and upper cervical spine metastases. Dural thickening and enhancement associate d with a right parietal calvarial lesion may reflect mild dural extension of tumor. ACT 112: Negative or not required by law. Electronically signed by: Elan Dotson M.D. 08/23/2022 6:22 PM
[2022-08-23] MEDS: SIMVASTATIN 40 MG TAB PO SCH (20:26)
--- NOTE | 2022-08-23 20:59 | Hospitalist Progress Note ---
Date of Service August 23, 2022 Assessment & Plan (1) Small cell lung cancer: Plan: d.w oncologist Dr jimenes on phone. Therapy initiation after the patient speaks with him tomorrow. Likely start of chemotherapy Tuesday. Surgery consulted for Port-A-Cath Allopurinol started to avoid tumor lysis syndrome. Uric acid baseline 6.2 which is normal (2) SVT (supraventricular tachycardia): Plan: overnight patient developed suspected SVT, with rates in the 150's Resolved after carotid massage patient admits she has had SVt's in the past Monitor on tele-this morning was an intermittent SVT. Lisinopril stopped and metoprolol started. Also got adenosine by palliative care (3) Pathologic lumbar vertebral fracture: Plan: -Noted on CT Extensive multifocal marrow replacement consistent with metastatic disease. L4 and L5 pathologic fractures with mild loss of height. Possible minimal epidural extension of tumor at the L4 and L5 levels -Also Severe central canal stenosis at L4-L5 due to facet arthrosis, ligamentous hypertrophy and anterolisthesis with uncovering of the disc. - Mild to moderate central canal stenosis at L3-L4. -Multiple lesions throughout the cervical, thoracic spine Fairly asymptomatic-does not walk because gets tachycardic -Pain is currently well-controlled with p.o. morphine sulfate which the patient is not asking much for. Discussed with RN. Appreciate Dr. Goel's input from palliative care. Morphine sulfate IV as needed to continue Lala, MS IR increased to every 4 hours at 15 mg, tramadol stopped. (4) Lung collapse: Plan: CT shows Right upper lobe mass consistent with central bronchogenic carcinoma wh ich occludes the right upper lobe bronchus and results in subtotal right upper lobe collapse. Mediastinal involvement which results in moderate SVC narrowing due to invasion. Pulmonolgy on consult- 08/20 (5) Hyponatremia: Plan: could be SIADH from lung mass fluid restriction to 1500cc/day. Sodium has improved (6) Type 2 diabetes mellitus: Plan: -Hold metformin -Will start with lantus, 5 units BID -Correction factor of 50 -Adjust regimen as needed (7) Hyperlipidemia: Plan: -Continue statin Plan Initiation of chemotherapy and control of SVT with the plan to discharge home Admission and Anticipated Discharge Date Admission Date: August 17, 2022 Subjective Patient seen at 10 AM today. Gets quite tachycardic on movement. She says her mood is holding up okay considering a diagnosis of cancer made within the last 1 week. She had presented with back pain. Pain control is adequate with Voltaren gel and occasional morphine. Denies cough at all. Denies shortness of breath. Appetite poor over the last 7 weeks and has lost 15 pounds. No crying spells. History of alcohol abuse but stopped 7 years ago, also was a heavy smoker at [id number] history of smoking to quit at the same time. 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 EXAMINER grossly intact, gait not tested Psych normal affect with good insight Results & Data Results & Data ([facility]) Vital Signs (Past 12 Hours) Vital Signs Temp Pulse Pulse Resp BP Pulse Ox O2 Del Method 08/23/22 19:47 36.3 C L 71 20 110/73 96 Room Air 08/23/22 16:00 159 H 08/23/22 15:55 36.5 C 143 H 18 101/71 94 Room Air 08/23/22 11:21 36.3 C L 149 H 19 110/76 92 Room Air Laboratory Results Abnormal lab results 08/23/22 08/23/22 08/23/22 Range/Units 06:03 11:18 16:33 Sodium 134 L (136-145) mmol/L Chloride 97 L (98-107) mmol/L BUN/Creatinine Ratio 26.4 H (10-20) Glucose 104 H (70-99(Fasting)) mg/dl POC Glucose 112 H 117 H (70-99) mg/dl 08/23/22 Range/Units 20:20 Sodium (136-145) mmol/L Chloride (98-107) mmol/L BUN/Creatinine Ratio (10-20) Glucose (70-99(Fasting)) mg/dl POC Glucose 101 H (70-99) mg/dl Medications Administered Home Medications Medication Instructions Recorded Confirmed Last Taken Lactobacillus rhamnosus GG 10 1 cap PO QAM 10/15/19 08/17/22 Unknown billion cell capsule (Culturelle) acetaminophen 500 mg tablet 1,000 mg PO QID PRN Fever Or Pain 10/15/19 08/17/22 Unknown (Tylenol Extra Strength) cranberry extract 200 mg capsule 400 mg PO DAILY 12/09/20 08/17/22 Unknown simvastatin 40 mg tablet (Zocor) 40 mg PO QPM #90 tabs 09/28/21 08/17/22 Unknown omeprazole 20 mg capsule,delayed 20 mg PO QAM #90 caps 10/21/21 08/17/22 Unknown release blood sugar diagnostic (OneTouch #100 ea 11/16/21 08/17/22 Unknown Verio test strips) OneTouch Delica Lancets 33 gauge #100 ea 07/19/22 08/17/22 Unknown (lancets) lisinopril 40 mg tablet 40 mg PO DAILY 08/17/22 08/17/22 Unknown metformin 500 mg tablet,extended 1,000 mg PO BID 08/17/22 08/17/22 Unknown release 24 hr Active Medications Generic Name Dose Route Start Last Admin Trade Name Freq PRN Reason Stop Dose Admin Diclofenac Sodium 2 gm 08/20/22 09:00 08/23/22 20:26 Diclofenac Sod 1% Gel 100 Gm Tube EXT 09/19/22 08:59 2 gm BID ERNESTO Administration Protocol Enoxaparin Sodium 40 mg 08/17/22 22:00 08/23/22 20:32 Enoxaparin Inj 40 Mg/0.4 Ml Syr SQ 09/16/22 21:59 40 mg Q12H ERNESTO Administration Insulin Aspart 0 units 08/17/22 21:59 08/23/22 20:28 Insulin Aspart Per Unit SC 09/16/22 21:58 Not Given [facility] Insulin Glargine 5 units 08/17/22 21:59 08/23/22 20:28 Lantus Per Unit Charge SQ 09/16/22 21:58 5 units BID ERNESTO Administration Lactobacillus Acidophilus 2 cap 08/18/22 09:00 08/23/22 08:14 Advanced Probiotic 1250 Mg Capsule PO 09/17/22 08:59 2 cap QAM ERNESTO Administration Morphine Sulfate 2 mg 08/18/22 21:14 08/23/22 02:56 Morphine Sulfate 2 Mg/Ml Carp IV 08/31/22 20:21 2 mg Q2H PRN Administration Pain (4,5,6+) Morphine Sulfate 15 mg 08/23/22 15:08 08/23/22 16:55 Morphine Sulfate Ir 15 Mg Tab (Immediate Release) PO 09/06/22 15:07 15 mg Q4H PRN Administration Pain Pantoprazole Sodium 40 mg 08/18/22 09:00 08/23/22 08:14 Pantoprazole 40 Mg Tab PO 09/17/22 08:59 40 mg QAM ERNESTO Administration Polyethylene Glycol 17 gm 08/19/22 10:45 08/23/22 08:24 Polyethylene (Miralax) 17 Gm Pack PO 09/18/22 10:44 Not Given DAILY ERNESTO Senna/Docusate Sodium 1 tab 08/21/22 09:00 08/23/22 08:24 Docusate Sodium/Senna 50/8.6mg Tab PO 09/20/22 08:59 Not Given QAM ERNESTO Simvastatin 40 mg 08/17/22 21:59 08/23/22 20:26 Simvastatin 40 Mg Tab PO 09/16/22 21:58 40 mg QPM ERNESTO Administration PG Care Time/CCT Total # of Minutes Spent Total Time Spent with Patient: Total time spent is greater than 50% in coordination of care (as documented) at patient's floor/unit and/or counseling patient: Coding Level of Care Code 76525 Subseq Hosp Care Lvl 3 Diagnoses Small cell lung cancer C34.90 SVT (supraventricular tachycardia) I47.1 Pathologic lumbar vertebral fracture M84.48XA Lung collapse J98.19 Hyponatremia E87.1 Type 2 diabetes mellitus E11.9 Hyperlipidemia E78.5
--- NOTE | 2022-08-23 21:11 | Surgery Consultation ---
Date of Consultation August 23, 2022 Assessment & Plan (1) Small cell lung cancer: General surgery has been asked to evaluate the patient for a port placement to address chemotherapy needs.: We will make the patient n.p.o. after midnight We will hold patient's Lovenox (I discussed with the primary service) We have tentatively placed the patient on the schedule for 08/23/[address] Roa would like to review the CAT scan with radiology due to the SVC narrowing noted on her chest CT scan; this may impact the planned procedure. Supervising Physician Co-Signing Physician Notes Pnt discussed with HAI Cherry, labs and imaging reviewed. 77 y/o female with metastatic lung ca, with need for chemo. Imaging shows moderate narrowing of SVC, will review with rads, may make port difficult. Tentatively plan for placement tomorrow, hold a/c and make npo. If concern for placement may discuss with vascular. History of Present Illness Reason for Consultation: Small cell lung cancer, need a port for chemotherapy needs Attending Physician: Arturo Roach MD History of Present Illness This is a 77-year-old female who was recently diagnosed with small cell lung cancer. She presented to her primary care physician's office secondary to acute low back pain that has been present for approximately 3 weeks. The work-up performed by the patient's primary care physician revealed patient had hyponatremia. The patient also underwent a CT scan abdomen pelvis that showed numerous rim-enhancing hypodense lesions in the liver concerning for metastatic disease. Patient was ultimately admitted to the hospital for further evaluation . Results of labs and imaging as well as liver biopsy will be delineated below. Labs and imaging were performed since admission to the hospital which I independent reviewed. A CT scan of the chest showed the patient had a right upper lobe mass consistent with a bronchogenic carcinoma. This mass appeared to occlude the right upper lobe bronchus and resulted in right upper lobe lung collapse. There is mediastinal involvement which were results and some moderate SVC narrowing. A lumbar spine MRI showed pathologic fractures at L4 and L5 with extensive multifocal marrow replacement consistent with metastatic disease. Cervical spine MRI showed multiple metastatic lesions in the cervical spine. Multiple scattered metastatic lesions were also seen in the thoracic spine. A brain MRI did show an enhancing lesion in the left cerebellar hemisphere concerning for metastases. The patient did undergo an ultrasound-guided liver biopsy on 08/19/2022. Results of this biopsy were consistent with metastatic small cell lung carcinoma. Most recent blood work was from today including a CBC her white blood cell count, hemoglobin, hematocrit, and platelet count were all normal. Chemistry profile showed sodium was 134. Potassium was 3.7. BUN and creatinine were both normal. A COVID test was performed on 08/17/2022 which was negative. At the time of my interview the patient was resting comfortably in bed in no distress. Allergies Allergy/AdvReac Type Severity Reaction Status Date / Time No Known Allergies Allergy Verified 08/17/22 07:42 Home Medications Medication Instructions Recorded Confirmed Type Lactobacillus rhamnosus GG 10 1 cap PO QAM 10/15/19 08/17/22 History billion cell capsule (Culturelle) acetaminophen 500 mg tablet 1,000 mg PO QID PRN Fever Or Pain 10/15/19 08/17/22 History (Tylenol Extra Strength) cranberry extract 200 mg capsule 400 mg PO DAILY 12/09/20 08/17/22 History simvastatin 40 mg tablet (Zocor) 40 mg PO QPM #90 tabs 09/28/21 08/17/22 Rx omeprazole 20 mg capsule,delayed 20 mg PO QAM #90 caps 10/21/21 08/17/22 Rx release blood sugar diagnostic (OneTouch #100 ea 11/16/21 08/17/22 Rx Verio test strips) OneTouch Delica Lancets 33 gauge #100 ea 07/19/22 08/17/22 Rx (lancets) lisinopril 40 mg tablet 40 mg PO DAILY 08/17/22 08/17/22 History metformin 500 mg tablet,extended 1,000 mg PO BID 08/17/22 08/17/22 History release 24 hr Patient History Medical History Alcohol intoxication Blood loss History of cigarette smoking Hyperlipidemia Hypertension Hypotension Open tibial fracture Sensorineural hearing loss of both ears Type 2 diabetes mellitus Surgical History History of ankle surgery broken ankle-2014 at [facility] History of appendectomy History of hemicolectomy January 2016--[facility] History of tonsillectomy History of tubal ligation Family History Sister Primary adenocarcinoma of vagina Father Asthma Hypertension Macular degeneration Pulmonary embolism Mother Emphysema lung Brother Macular degeneration Denies family history of Ovarian cancer Prostate cancer Myocardial infarction Breast cancer Colorectal cancer Social History Smoking Status: Former smoker Tobacco Type: Cigarettes packs per day: 2; Smoking End Date: quit 7 years ago; Second Hand Exposure: No; Hx Alcohol Use: No (stopped 7 years ago) Hx Substance Use: No Preferred Language: Bhutanese Communication Ability: Effective Visual Impairment: Limited Hearing Ability: Normal Diet Therapist Required: No Beliefs That Will Affect Care: None marital status: Current Living Situation: Spouse current occupational status: retired How many Children do You have: 2 Other Information That Helps Us Care for You: No Feels Safe at Home: Yes Safety Concerns: Feels Safe At This Time Childhood Exposure to Second-Hand Smoke: Yes caffeine: Yes (coffee 4 cups a day ) Dental Care, Regularly: Yes Physical Activity Frequency: Daily Physical Activity Frequency Comment: bicycle Seatbelt Use: always Sunscreen Use: Yes Assistive Devices: Cane and Walker Review of Systems Constitutional: no fever and no chills Eyes: no eye pain Ear, Nose, Mouth, Throat: no ear pain Respiratory: no cough and no dyspnea Cardiovascular: no chest pain Gastrointestinal: no abdominal pain, no nausea and no vomiting Genitourinary: no dysuria Musculoskeletal: + back pain Integumentary: no rash Neurologic: + generalized weakness Physical Exam Constitutional: WD/WN, vitals as above Eyes: no conjunctival abnormality ENMT: Ears: no hearing impairment and no external ear abnormality Mouth: no oropharynx abnormality Neck: trachea midline; no neck crepitus Respiratory: normal respiratory effort; no respiratory distress and no labored breathing Cardiovascular: Rate/Rhythm: regular rate and regular rhythm Gastrointestinal (Abdomen): Soft, nontender, nondistended. No pain with palpation Musculoskeletal: No calf tenderness Skin: no rashes Neurologic: moves all extremities Psychiatric: A+Ox3, euthymic affect Results & Data ([facility]) Vital Signs (Past 12 Hours) Vital Signs Temp Pulse Pulse Resp BP Pulse Ox O2 Del Method 08/23/22 19:47 36.3 C L 71 20 110/73 96 Room Air 08/23/22 16:00 159 H 11/07/22 15:55 36.5 C 143 H 18 101/71 94 Room Air 08/23/22 11:21 36.3 C L 149 H 19 110/76 92 Room Air PG Care Time/CCT Total # of Minutes Spent Total Time Spent with Patient: Total time spent is greater than 50% in coordination of care (as documented) at patient's floor/unit and/or counseling patient: Coding Level of Care Code 28711 Inpt Consult Level 5 Diagnoses Small cell lung cancer C34.90
[2022-08-23] MEDS: allopurinoL 300 MG TAB PO SCH (21:36)
[2022-08-24] MEDS: MoRPHine SULFATE 2 MG/ML CARP IV PRN ×2 (01:40→14:55)
[2022-08-24] MEDS ORDERED: METOPROLOL TARTRATE 1 MG/ML VIAL IV STA (02:19)
[2022-08-24] MEDS: INSULIN ASPART PER UNIT SC SCH ×4 (08:01→21:19)
[2022-08-24] MEDS: MoRPHine SULFATE IR 15 MG TAB (IMMEDIATE RELEASE) PO PRN ×2 (08:13→18:32)
[2022-08-24] MEDS: ADVANCED PROBIOTIC 1250 MG CAPSULE PO SCH (08:14)
[2022-08-24] MEDS: DICLOFENAC SOD 1% GEL 100 GM TUBE EXT SCH ×2 (08:14→21:19)
[2022-08-24] MEDS: PANTOprazole 40 MG TAB PO SCH (08:16)
[2022-08-24] MEDS: METOPROLOL SUCC 50MG EXT REL TAB PO SCH (08:16)
[2022-08-24] MEDS: LANTUS PER UNIT CHARGE SQ SCH ×2 (08:46→21:19)
[2022-08-24] MEDS: DOCUSATE SODIUM/SENNA 50/8.6MG TAB PO SCH (08:49)
--- NOTE | 2022-08-24 09:39 | Palliative Care Progress Note ---
Date of Service August 24, 2022 Assessment & Plan (1) Palliative care encounter: Plan: I called pt dtr this morning while pt was at procedure. We reviewed her dx and plans for cancer tx - chemo start tomorrow, port placed today, likely RT during the C1 and C2 interval. Dtr asked very appropriate questions re dx, anticipated care needs etc. They are committed to meeting her needs as a family. We spoke about possible SNF rehab for muscle deconditionong and mobility safety, dtr willing to support pt decision re same. Advised her if this is recomend we would ask CM to help with this process. (2) Cancer related pain: Plan: * Continue MSIR 15mg PO q4h prn/hold for somnolence of RR < 14/min * MS IV dose requested now for post procedural pain, have asked nursing to clarify her NPO status, she is asking for ice water. * Family meeting confirmed for 5pm tomorrow at bedside, pt dtr will bring the pt and pt son is also attending. Primary team, med onc, rad onc etc aware. * psychosocial support and reassurance provided. * all questions answered to her apparent satisfaction (3) Metastatic cancer: (4) Small cell lung cancer: (5) Counseling regarding advanced directives and goals of care: (6) Pathologic lumbar vertebral fracture: Plan outlined above. Ca Shaw DNP Clinical Director, Palliative Medicine Admission and Anticipated Discharge Date Admission Date: August 17, 2022 Subjective SCLC, Stage IV Cancer related pain: better with MSIR 15mg tab Planning for chemo start tomorrow Likely will have RT in between cycle 1 and cycle 2 Would like family meeting tomorrow with , daughter, son, notes her dtr is POA as well. reports signif pain in left hip/pelvis and back from morning of procedures and positioning. Also complaining of thirst, Unsure if she is still NPO. Review of Systems Review of Systems: All systems reviewed & are unremarkable except as noted in Subjective Physical Exam Constitutional: well groomed and cooperative Eyes: PERRL, conjunctivae normal, anicteric sclerae ENMT: external ear and nose normal, oropharynx normal Mouth: + chipped teeth Neck: trachea midline, no thyromegaly Respiratory: no respiratory distress and no cough Auscultation: + diminished lung sounds (Decreased breath sounds at apices.) Cardiovascular: Rate/Rhythm: regular rate Vessels: normal peripheral pulses Extremities: normal capillary refill Gastrointestinal (Abdomen): normal bowel sounds, soft, nontender, no hepatosplenomegaly Skin: no rashes, warm and dry new port incision left anterior chest Neurologic: Gait not assessed due to pathologic fx. strength intact but some weakness. pt is AAOx3 Psychiatric: Orientation: alert and oriented x 3 Eye Contact: good eye contact Thought Process: goal directed thought process and linear/logical thought process Cognition: recent memory grossly intact, remote memory grossly intact, attention grossly intact and language grossly intact Insight: excellent insight Judgement: excellent judgement Results & Data ([facility]) Vital Signs (Past 12 Hours) Vital Signs Temp Pulse Pulse Resp BP BP Pulse Ox 08/24/22 07:45 36.4 C L 68 16 126/78 98 08/24/22 05:36 63 08/24/22 00:00 72 08/24/22 03:24 57 L 08/24/22 02:44 36.3 C L 94 08/24/22 02:38 151 H 114/81 08/23/22 22:59 36.4 C L 69 18 128/84 92 O2 Del Method 08/24/22 07:45 Room Air 08/24/22 05:36 08/24/22 00:00 08/24/22 03:24 08/24/22 02:44 Room Air 08/24/22 02:38 08/23/22 22:59 Room Air PG Care Time/CCT Total # of Minutes Spent Total Time Spent: 60 Total Time Spent with Patient: Total time spent is greater than 50% in coordination of care (as documented) at patient's floor/unit and/or counseling patient:40 min in discussion with pt and pt family Coding [place] [address] Subseq Hosp Care Lvl 3 Patient Type Established History Detailed Exam Detailed Medical Decision Making Moderate Complexity Diagnoses Palliative care encounter Z51.5 Cancer related pain G89.3 Metastatic cancer C79.9 Small cell lung cancer C34.90 Counseling regarding advanced directives and goals of care Z71.89 Pathologic lumbar vertebral fracture M84.48XA
[2022-08-24] MEDS ORDERED: ceFAZolin 2,000 MG/15 ML IV PUSH IV ONE (12:13)
--- NOTE | 2022-08-24 12:19 | Hospitalist Progress Note ---
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 MRI brain to be repeated in near future. Chemotherapy starts tomorrow. Concern for impending SVC obstruction. Is going for Port-A-Cath placement today Family meeting at 5 PM tomorrow when palliative care and oncology will both be present. (2) SVT (supraventricular tachycardia): Plan: Heart rate in the 70s all morning since 230 or so Was in a flutter briefly before that and intermittently in SVT yesterday. Telemetry reviewed at 9:30 AM today. (3) Pathologic lumbar vertebral fracture: Plan: -Noted on CT Extensive multifocal marrow replacement consistent with metastatic disease. L4 and L5 pathologic fractures with mild loss of height. Possible minimal epidural extension of tumor at the L4 and L5 levels -Also Severe central canal stenosis at L4-L5 due to facet arthrosis, ligamentous hypertrophy and anterolisthesis with uncovering of the disc. - Mild to moderate central canal stenosis at L3-L4. -Multiple lesions throughout the cervical, thoracic spine Radiation oncology planning radiation to the lumbar spine -Pain is currently well-controlled with p.o. morphine sulfate which the patient is not asking much for. Discussed with RN. Appreciate Dr. Goel's input from palliative care. Morphine sulfate IV as needed to continue MS Lala IR increased to every 4 hours at 15 mg. (4) Lung collapse: Plan: No intervention as no symptoms. Pulmonology was consulted 08/20. (5) Hyponatremia: Plan: could be SIADH from lung mass fluid restriction to 1500cc/day. Sodium 135 today and the patient does not object to the fluid restriction. Sodium has improved (6) Type 2 diabetes mellitus: Plan: Metformin on hold. Lantus on hold today is n.p.o. (7) Hyperlipidemia: Plan: -Continue statin Plan Per oncology. Likely discharge after chemotherapy. Admission and Anticipated Discharge Date Admission Date: August 17, 2022 Subjective Seen at 950 today. Walked up to chair while I was there. Little short of breath but denies any cough or shortness of breath at all. Very talkative and narrating the incidence of last night and yesterday. Has spoken with oncology. Her daughter is on her way today. Denies any focal muscular weakness or balance problems. No constipation. No depressed mood or crying spells. No headache Physical Exam Physical Exam: Alert and pleasant, quite conversant ,only little short of breath while talking, comfortable on room air, walked to the chair Provides a very detailed history Head and neck no thyromegaly, anicteric sclerae, normal extraocular movements Chest clear to auscultation Abdomen obese nontender Extremities trace edema CLAY ARTISAN grossly intact, gait normal unassisted, normal [id number] bilaterally, cranial nerves II to XII intact, Psych normal affect with good insight Results & Data Results & Data ([facility]) Vital Signs (Past 12 Hours) Vital Signs Temp Pulse Pulse Pulse Resp BP BP 08/24/22 11:54 36.8 C 70 20 130/66 08/24/22 11:19 36.7 C 71 16 127/74 08/24/22 06:11 60 08/24/22 07:45 36.4 C L 68 16 126/78 08/24/22 05:36 63 08/24/22 03:24 57 L 08/24/22 02:44 36.3 C L 08/24/22 02:38 151 H 114/81 Pulse Ox O2 Del Method 08/24/22 11:54 95 Room Air 08/24/22 11:19 95 Room Air 08/24/22 06:11 08/24/22 07:45 98 Room Air 08/24/22 05:36 08/24/22 03:24 08/24/22 02:44 94 Room Air 08/24/22 02:38 Laboratory Results Abnormal lab results 08/23/22 08/23/22 08/24/22 Range/Units 16:33 20:20 07:25 POC Glucose 117 H 101 H 107 H (70-99) mg/dl Diagnostic Findings Brain MRI 08/23/22 12:53 MRI OF THE BRAIN WITHOUT AND WITH IV CONTRAST CLINICAL HISTORY: Small cell lung cancer. Evaluate for metastatic disease. COMPARISON STUDY: No previous studies for comparison. TECHNIQUE: Utilizing a 1.5 Elisa magnet and dedicated coil, multiplanar, multiecho imaging of the brain was performed pre and postcontrast administration. IV administration of Gadavist contrast was uneventful. Thin cut T1 post contrast imaging was performed. FINDINGS: There are no foci of restricted diffusion to suggest acute infarct. No acute intracranial hemorrhage, midline shift or mass effect is present. Ventricular system is unremarkable. Basal cisterns are patent. There are no extra-axial collections. Flow-voids for the major intracranial vessels are present. White matter T2 hyperintense foci suggest small vessel disease. Note is made of multifocal marrow replacement within the calvarium and visualized portions of the cervical spine. There is dural thickening and enhancement associated with a right parietal lesion. Note is made of a 5 mm intra-axial enhancing lesion within the left cerebellar hemisphere. This has mild associated vasogenic edema. No additional parenchymal lesions are identified. IMPRESSION: 1. 5 mm enhancing lesion within left cerebellar hemisphere suggestive of a metastasis. Mild associated vasogenic edema. 2. Numerous calvarial and upper cervical spine metastases. Dural thickening and enhancement associated with a right parietal calvarial lesion may reflect mild dural extension of tumor. ACT 112: Negative or not required by law. Electronically signed by: Elan Dotson M.D. 08/23/2022 6:22 PM PG Care Time/CCT Total # of Minutes Spent Total Time Spent with Patient: Total time spent is greater than 50% in coordination of care (as documented) at patient's floor/unit and/or counseling patient: Coding Level of Care Code 91208 Subseq Hosp Care Lvl 3 Diagnoses Small cell lung cancer C34.90 SVT (supraventricular tachycardia) I47.1 Pathologic lumbar vertebral fracture M84.48XA Lung collapse J98.19 Hyponatremia E87.1 Type 2 diabetes mellitus E11.9 Hyperlipidemia E78.5
--- NOTE | 2022-08-24 12:21 | Anesthesiology Consultation ---
Date of Service August 24, 2022 Assessment & Plan Chart Review Chart Review: Acceptable Risk for Surgery and Patient NOT seen in Pre Admission Testing Consults Requested none ASA ASA4 Proposed Anesthesia Anesthesia Type: MAC Risk / Benefits Reviewed With: PT / POA / Parent / Guardian, Accepts Plan and Informed Consent Obtained History Surgery Operation Date: 08/24/22 14:10 Proposed Procedures p Aport Placement - Edwin Roa, , FACS Height/Weight Height: 5 ft 2 in Weight: 90.1 kg Allergies Allergy/AdvReac Type Severity Reaction Status Date / Time No Known Allergies Allergy Verified 08/17/22 07:42 Medications Home Medications Medication Instructions Recorded Confirmed Last Taken Lactobacillus rhamnosus GG 10 1 cap PO QAM 10/15/19 08/17/22 Unknown billion cell capsule (Culturelle) acetaminophen 500 mg tablet 1,000 mg PO QID PRN Fever Or Pain 10/15/19 08/17/22 Unknown (Tylenol Extra Strength) cranberry extract 200 mg capsule 400 mg PO DAILY 12/09/20 08/17/22 Unknown simvastatin 40 mg tablet (Zocor) 40 mg PO QPM #90 tabs 09/28/21 08/17/22 Unknown omeprazole 20 mg capsule,delayed 20 mg PO QAM #90 caps 10/21/21 08/17/22 Unknown release blood sugar diagnostic (OneTouch #100 ea 11/16/21 08/17/22 Unknown Verio test strips) SuniTouch Delica Lancets 33 gauge #100 ea 07/19/22 08/17/22 Unknown (lancets) lisinopril 40 mg tablet 40 mg PO DAILY 08/17/22 08/17/22 Unknown metformin 500 mg tablet,extended 1,000 mg PO BID 08/17/22 08/17/22 Unknown release 24 hr Active Medications Generic Name Dose Route Start Last Admin Trade Name Freq PRN Reason Stop Dose Admin Allopurinol 300 mg 08/23/22 21:00 08/23/22 21:36 Allopurinol 300 Mg Tab PO 09/22/22 20:59 300 mg HS ERNESTO Administration Diclofenac Sodium 2 gm 08/20/22 09:00 08/24/22 08:14 Diclofenac Sod 1% Gel 100 Gm Tube EXT 09/19/22 08:59 2 gm BID ERNESTO Administration Protocol Enoxaparin Sodium 40 mg 08/17/22 22:00 08/23/22 20:32 Enoxaparin Inj 40 Mg/0.4 Ml Syr SQ 09/16/22 21:59 40 mg Q12H ERNESTO Administration Insulin Aspart 0 units 08/17/22 21:59 08/24/22 11:17 Insulin Aspart Per Unit SC 09/16/22 21:58 Not Given ACHS ERNESTO Insulin Glargine 5 units 08/17/22 21:59 08/24/22 08:46 Lantus Per Unit Charge SQ 09/16/22 21:58 Not Given BID ERNESTO Lactobacillus Acidophilus 2 cap 08/18/22 09:00 08/24/22 08:14 Advanced Probiotic 1250 Mg Capsule PO 09/17/22 08:59 2 cap QAM ERNESTO Administration Metoprolol Succinate 50 mg 08/24/22 09:00 08/24/22 08:16 Metoprolol Succ 50mg Ext Rel Tab PO 09/23/22 08:59 50 mg QAM ERNESTO Administration Morphine Sulfate 2 mg 08/18/22 21:14 08/24/22 01:40 Morphine Sulfate 2 Mg/Ml Carp IV 08/31/22 20:21 2 mg Q2H PRN Administration Pain (4,5,6+) Morphine Sulfate 15 mg 08/23/22 15:08 08/24/22 08:13 Morphine Sulfate Ir 15 Mg Tab (Immediate Release) PO 09/06/22 15:07 15 mg Q4H PRN Administration Pain Pantoprazole Sodium 40 mg 08/18/22 09:00 08/24/22 08:16 Pantoprazole 40 Mg Tab PO 09/17/22 08:59 Not Given QAM ERNESTO Polyethylene Glycol 17 gm 08/19/22 10:45 08/23/22 08:24 Polyethylene (Miralax) 17 Gm Pack PO 09/18/22 10:44 Not Given DAILY ERNESTO Senna/Docusate Sodium 1 tab 08/21/22 09:00 08/24/22 08:49 Docusate Sodium/Senna 50/8.6mg Tab PO 09/20/22 08:59 1 tab QAM ERNESTO Administration Simvastatin 40 mg 08/17/22 21:59 08/23/22 20:26 Simvastatin 40 Mg Tab PO 09/16/22 21:58 40 mg QPM ERNESTO Administration NPO Date Last Intake of Fluids: 08/24/22 Time Last Intake of Fluids: 02:00 Date Last Intake of Solids: 08/23/22 Time Last Intake of Solids: 17:00 Past Medical History Medical History Alcohol intoxication Blood loss History of cigarette smoking Hyperlipidemia Hypertension Hypotension Open tibial fracture Sensorineural hearing loss of both ears Type 2 diabetes mellitus Exercise / Class Metabolic Activity II 4-5 Yardwork/Stairs/Walk up hill Past Family History Family History Sister Primary adenocarcinoma of vagina Father Asthma Hypertension Macular degeneration Pulmonary embolism Mother Emphysema lung Brother Macular degeneration Denies family history of Ovarian cancer Prostate cancer Myocardial infarction Breast cancer Colorectal cancer Past Surgical History Surgical History History of ankle surgery broken ankle-2014 at [facility] History of appendectomy History of hemicolectomy January 2016--[facility] History of tonsillectomy History of tubal ligation Past Anesthesia History No Hx of Anesthesia Complications and No Family Hx of Anesthesia Complications History of PONV No Hx of PONV and No Hx of Motion Sickness Social History Smoking Status: Former smoker Smoking End Date: quit 7 years ago Hx Alcohol Use: No (stopped 7 years ago) Hx Substance Use: No Physical Exam Vital Signs Last Vital Signs Temp 36.8 C 08/24/22 11:54 Pulse 70 08/24/22 11:54 Resp 20 08/24/22 11:54 BP 130/66 08/24/22 11:54 Pulse Ox 95 08/24/22 11:54 O2 Del Method 08/24/22 11:54 O2 Flow Rate 2 08/22/22 05:33 Constitutional + obese ENMT Mouth: no dentition abnormality Thyromental Distance: > or= 3.5 Finger Breadths Mallampati Class: II Neck normal visual inspection Respiratory normal respiratory effort Auscultation: + diminished lung sounds Cardiovascular Rate/Rhythm: regular rate and regular rhythm Psychiatric Orientation: alert Testing Laboratory Results 08/23/22 06:03 08/23/22 06:03 PT 10.8 Seconds (9.0-12.0) 08/17/22 16:29 INR 1.0 (0.9-1.1) 08/17/22 16:29 APTT 29.2 Seconds (21.0-31.0) 08/17/22 16:29 Urine Color Yellow 08/17/22 23:16 Urine Appearance Cloudy (Clear) A 08/17/22 23:16 Urine pH 5.5 (4.5-7.5) 08/17/22 23:16 Ur Specific Mckinney 1.027 (1.000-1.030) 08/17/22 23:16 Urine Protein Negative (Negative) 08/17/22 23:16 Urine Glucose (UA) Negative (Negative) 08/17/22 23:16 Urine Ketones 1+ (Negative) H 08/17/22 23:16 Urine Nitrite Negative (Negative) 08/17/22 23:16 Ur Leukocyte Esterase 1+ (Negative) H 08/17/22 23:16 Urine WBC (Auto) >30 /hpf (0-5) H 08/17/22 23:16 Urine RBC (Auto) 5-10 /hpf (0-4) H 08/17/22 23:16 U Hyaline Cast (Auto) 1-5 /lpf (0-5) 08/17/22 23:16 U Epithel Cells (Auto) 20-30 /lpf (0-5) H 08/17/22 23:16 Urine Bacteria (Auto) 4+ (Negative) H 08/17/22 23:16 08/17/22 23:16 Urine Culture - Final Urine,Clean Catch Alpha strep. not enterococcus Escherichia coli 08/24/22 08/24/22 11:03 07:25 POC Glucose 96 107 H
--- NOTE | 2022-08-24 12:21 | Surgery Progress Note ---
Date of Service August 24, 2022 Assessment & Plan (1) Small cell lung cancer: Plan: 77year old female with small cell lung cancer with need for [facility] iv access for chemotherapy. I reviewed the scan with Dr. Manzo with vascular surgery. He does not feel that the mild narrowing of the SVC will affect our placement of the port. plan for port placement risks of the procedure were discussed to include but not limited to bleeding, infection, pneumothorax, port malfunction, infection, or complication requiring removal or replacement, damage to surrounding structures, need for future or more extensive surgery, and the risks of anesthesia Admission and Anticipated Discharge Date Admission Date: August 17, 2022 Subjective 77-year-old female with lung cancer and need for chemotherapy, surgery consulted for port placement. She has never had any central lines, trauma, or surgery to her neck or chest. The tumor is on the right and is going require radiation therapy. There is some narrowing of her SVC on her imaging study, but no evidence of thrombus and good flow. She is not on any blood thinners, platelets and coags were normal during the stay. Physical Exam Constitutional: WD/WN, vitals as above Respiratory: normal respiratory effort and + dullness to percussion (Right upper lobe) Cardiovascular: RRR, no murmur, no edema Results & Data ([facility]) Vital Signs (Past 12 Hours) Vital Signs Temp Pulse Pulse Pulse Resp BP BP 08/24/22 11:54 36.8 C 70 20 130/66 08/24/22 11:19 36.7 C 71 16 127/74 08/24/22 06:11 60 08/24/22 07:45 36.4 C L 68 16 126/78 08/24/22 05:36 63 08/24/22 03:24 57 L 08/24/22 02:44 36.3 C L 08/24/22 02:38 151 H 114/81 Pulse Ox O2 Del Method 08/24/22 11:54 95 Room Air 08/24/22 11:19 95 Room Air 08/24/22 06:11 08/24/22 07:45 98 Room Air 08/24/22 05:36 08/24/22 03:24 08/24/22 02:44 94 Room Air 08/24/22 02:38 Diagnostic Findings I personally reviewed and interpreted the CT scan, discussed it with Dr. Dotson with radiology, and discussed it with Dr. Manzo with vascular surgery. Agree with the assessment that there is narrowing of the SVC but no evidence of thrombus. PG Care Time/CCT Total # of Minutes Spent Total Time Spent with Patient: Total time spent is greater than 50% in coordination of care (as documented) at patient's floor/unit and/or counseling patient: Coding Level of Care Code 08947 Inpt Consult Level 1 Diagnoses Small cell lung cancer C34.90
[2022-08-24] MEDS ORDERED: ATROPINE SULFATE 0.1 MG/ML 10ML SYR IV PRN (12:22)
[2022-08-24] MEDS ORDERED: ePHEDrine sulfate 50 MG/ML AMP IV PRN (12:22)
[2022-08-24] MEDS ORDERED: PROMETHAZINE HCL 6.25 MG in SODIUM CHLORIDE 0.9% 50 ML IV PRN (12:22)
[2022-08-24] MEDS ORDERED: fentaNYL citrate 100 MCG/2 ML VIAL IV PRN (12:22)
[2022-08-24] MEDS ORDERED: ONDANSETRON INJ 2 MG/ML 2 ML VIAL IV PRN (12:22)
[2022-08-24] MEDS ORDERED: fentaNYL citrate 100 MCG/2 ML VIAL ONE (12:25)
[2022-08-24] MEDS ORDERED: PROPOFOL IV EMULSION 10 MG/ML 20 ML VIAL IV ONE (12:25)
[2022-08-24] MEDS ORDERED: ONDANSETRON INJ 2 MG/ML 2 ML VIAL ONE (12:25)
[2022-08-24] MEDS ORDERED: MIDAZOLAM HCL 1 MG/ML 2ML VIAL ONE (12:25)
[2022-08-24] MEDS ORDERED: LIDOCAINE 2% MPF LOCAL 5 ML VIAL INFIL ONE (12:25)
[2022-08-24] MEDS ORDERED: ceFAZolin 2000MG 2,000 MG/15 ML SYR IV ONE (12:27)
[2022-08-24] MEDS ORDERED: BUPIVACAINE 0.5 % 5 MG/1 ML MPF 30ML VIAL INFIL ONE (13:34)
--- NOTE | 2022-08-24 13:36 | Operative Report ---
PG Post Operative Report Pre & Post Diagnosis Operation Date: 08/24/22 14:10 Pre-Op Diagnosis: small cell lung cancer Post-Op Diagnosis: small cell lung cancer I identified the patient and participated in the time-out.: Yes Procedure Operation Date: 08/24/22 14:10 Actual Procedures p Aport Placement(Left) - Edwin Roa DO, FACS Surgeon Edwin Roa DO, FACS Crabber Megan Yousif Estimated Blood Loss 5 Findings Consistent with Post-Op Diagnosis Left internal jugular vein access using real-time ultrasound guidance. Port placed to cavoatrial junction using fluoroscopy. Port draws and flushes easily at conclusion of case. Specimens None Anesthesia Type MAC Complications none Disposition Accompanied Patient To Recovery: No Disposition: Recovery Room Indications 77-year-old female with newly diagnosed lung cancer with need for long-term IV access for chemotherapy, plan for port placement. The risks of the procedure were discussed, all questions were answered, and the patient agreed to proceed with surgery as planned. Description of Procedure The patient was properly identified, consented, and taken to the operating room where she was placed in the supine position with both arms tucked and a shoulder roll placed vertically. Monitored anesthesia care was induced. SCDs and a safety belt were placed. Preoperative antibiotics were administered. The patient's chest and neck was prepped and draped in the standard sterile fashion. Surgical timeout was performed and all parties were in agreement that this was the correct patient and procedure to be performed and we continued as planned. The patient was placed in Trendelenburg position. Local anesthetic was injected along the skin incision. Using real-time ultrasound guidance the left internal jugular vein was accessed using the access needle. The wire was placed and the needle was removed. Fluoroscopy confirmed placement into the internal jugular vein extending into the superior vena cava. A transverse skin incision was made in the left chest and a pocket was created for the port. A subcutaneous tunnel was created and the catheter was brought from the neck incision into the chest incision. The dilator and peel-away sheath were inserted over the wire. The catheter was then inserted through the peel-away sheath and fluoroscopy c onfirmed placement into the superior vena cava. The catheter was cut and attached to the port. The port was secured into place with 3-0 Prolene sutures. A final x-ray revealed good placement of the port. The wound was irrigated and hemostasis was confirmed. The skin was closed with interrupted 3-0 Vicryl deep dermal sutures, followed by 4-0 Monocryl running subcuticular suture. Dermabond was placed over the wound. The port was accessed and artis blood easily and flushed easily. It was flushed with heparinized saline. The patient taken to the PACU where she recovered without apparent incident. All sponge, instrument and needle counts were correct at the conclusion of the procedure. The patient tolerated the procedure well. The physician's podiatry assistant was present and scrubbed for the entirety of the case, and was essential in positioning the patient, prepping and draping, retraction and exposure, placement of the port, closure of the wounds, and placement of dressings. I attest to the content of the Intraoperative Record and any orders documented therein. Any exceptions are noted below.
--- NOTE | 2022-08-24 13:37 | Operative Report ---
PG Post Operative Report Pre & Post Diagnosis Operation Date: 08/24/22 14:10 Pre-Op Diagnosis: small cell lung cancer Post-Op Diagnosis: small cell lung cancer I identified the patient and participated in the time-out.: Yes Procedure Operation Date: 08/24/22 14:10 Actual Procedures p Aport Placement(Left) - Edwin Roa DO, PEEWEE Surgeon Edwin Roa DO, FACS Marketing Copywriter Megan Yousif Estimated Blood Loss 5 Findings Consistent with Post-Op Diagnosis Specimens None Anesthesia Type MAC Complications none Disposition Accompanied Patient To Recovery: No Disposition: Recovery Room Description of Procedure Real-time ultrasound guidance was utilized and interpreted by myself during the procedure to access the left internal jugular vein. Fluoroscopy was utilized and interpreted by myself throughout the procedure to place the port to the cavoatrial junction. I attest to the content of the Intraoperative Record and any orders documented therein. Any exceptions are noted below.
[2022-08-24] MEDS ORDERED: LIDOCAINE 1% LOCAL 20 ML VIAL INJ ONE (13:54)
[2022-08-24] MEDS ORDERED: HEPARIN 100 UNIT/ML 5ML FLUSH FLUSH ONE (14:00)
--- NOTE | 2022-08-24 14:09 | Electrocardiogram Report ---
Test Reason : Blood Pressure : / mmHG Vent. Rate : 148 BPM Atrial Rate : 148 BPM P-R Int : 188 ms QRS Dur : 088 ms QT Int : 264 ms P-R-T Axes : 046 028 213 degrees QTc Int : 414 ms Supraventricular tachycardia Marked ST abnormality, possible inferior subendocardial injury Marked ST abnormality, possible anterior subendocardial injury Abnormal ECG When compared with ECG of 22-AUG-2022 17:36, Nonspecific T wave abnormality now evident in Inferior leads Confirmed by Lionel Louis ([id number]) on 08/24/2022 2:09:22 PM Referred By: Shanti Watts Confirmed By:Lionel Louis
--- NOTE | 2022-08-24 14:10 | XRay Report ---
SINGLE VIEW CHEST CLINICAL HISTORY: Infusion port placement FINDINGS: An AP, portable, upright chest radiograph is compared to study dated 05/20/2015 and correlate d with chest CT dated 08/18/2022. A left internal jugular central venous infusion port is new from pre vious. The tip of the catheter projects over the SVC. The heart is enlarged noting atherosclerotic ca lcification of the thoracic aorta. The pulmonary vasculature is noncongested. The mitral annulus is d ensely calcified. Emphysema and chronic interstitial thickening is similar to previous. A large mass lesion and atelectasis of the right upper lung is similar to previous. Left lung is clear noting basi lar scarring/atelectasis. No large pleural effusion or pneumothorax is seen. The bony thorax is gross ly intact. IMPRESSION: 1. A left internal jugular central venous infusion port has been placed as above. No pneumothorax is seen post procedure. 2. Cardiomegaly and emphysema. 3. A large mass lesion and atelectasis of the right upper lung is similar to the recent chest CT. ACT 112: Negative or not required by law. Electronically signed by: Yonatan Cooper M.D. 08/24/2022 2:08 PM
--- NOTE | 2022-08-24 14:29 | Anesthesiology Progress Note ---
Date of Service August 24, 2022 Anesthesia Post Procedure Vital Signs Vital Signs: Temp Pulse Pulse Pulse Pulse Resp BP 08/24/22 14:15 36.3 C L 64 15 08/24/22 14:05 68 16 08/24/22 13:55 69 15 08/24/22 13:47 36.3 C L 71 16 08/24/22 11:54 36.8 C 70 20 08/24/22 11:19 36.7 C 71 16 08/24/22 06:11 60 08/24/22 07:45 36.4 C L 68 16 08/24/22 05:36 63 08/24/22 00:00 72 08/24/22 03:24 57 L 08/24/22 02:44 36.3 C L 08/24/22 02:38 151 H 114/81 08/23/22 22:59 36.4 C L 69 18 08/23/22 19:47 36.3 C L 71 20 08/23/22 16:00 159 H 08/23/22 15:55 36.5 C 143 H 18 BP Pulse Ox O2 Del Method O2 Flow Rate 08/24/22 14:15 124/65 96 Nasal Cannula 2 08/24/22 14:05 122/67 91 Room Air 08/24/22 13:55 131/65 97 Oxymask 6 08/24/22 13:47 121/63 97 Oxymask 6 08/24/22 11:54 130/66 95 Room Air 08/24/22 11:19 127/74 95 Room Air 08/24/22 06:11 08/24/22 07:45 126/78 98 Room Air 08/24/22 05:36 08/24/22 00:00 08/24/22 03:24 08/24/22 02:44 94 Room Air 08/24/22 02:38 08/23/22 22:59 128/84 92 Room Air 08/23/22 19:47 110/73 96 Room Air 08/23/22 16:00 08/23/22 15:55 101/71 94 Room Air Pain Intensity Flank: Pain Intensity: 8 Abdomen: Pain Intensity: 6 Back: Pain Intensity: 7 Neck: Pain Intensity: 3 Transfer of Care Handoff Completed per policy Notes Mental Status: alert / awake / arousable Patient Amnestic to Procedure: Yes Nausea / Vomiting: adequately controlled Pain: adequately controlled Airway Patency, RR, SpO2: stable & adequate BP & HR: stable & adequate Hydration State: stable & adequate Anesthetic Complications: no major complications apparent
[2022-08-24] MEDS: POLYETHYLENE (MIRALAX) 17 GM PACK PO SCH (16:06)
[2022-08-24] MEDS: SIMVASTATIN 40 MG TAB PO SCH (21:19)
[2022-08-24] MEDS: allopurinoL 300 MG TAB PO SCH (21:19)
[2022-08-25] MEDS: MoRPHine SULFATE 2 MG/ML CARP IV PRN (02:07)
[2022-08-25] MEDS: MoRPHine SULFATE IR 15 MG TAB (IMMEDIATE RELEASE) PO PRN ×3 (06:25→18:18)
--- NOTE | 2022-08-25 06:29 | Hospitalist Progress Note ---
Date of Service August 24, 2022 Assessment & Plan (1) Small cell lung cancer: Plan: Stage IV non-small cell lung cancer with large involvement in the right lung and impending SVC syndrome, mediastinal lymph node involvement, metastases to the bones, liver, and probably to the cerebellum though the latter is a small lesion and overall BATTERY INSPECTOR involvement is minimal. We have spoken at length about the disease and its potential treatment. We are proposing 4 cycles of etoposide/carboplatinum the first started in the hospital where we can observe for tumor lysis for which she is at some risk. This would continue on an every 3-week basis with subsequent regimens planned as an outpatient incorporating the addition of atezolizumab. The BATTERY INSPECTOR lesion is small and often will respond to such systemic chemotherapy but we will reassess after 2 cycles and if it persists or progresses might consider interval SRS to that lesion between chemotherapy cycles There is provisional opportunity to give palliative radiation to the uncomfortable area in her spine if that does not rapidly respond to initial chemotherapy. Radiation oncology is on board with provisional planning for that. This could become between cycles 1 and 2 are between cycles 2 and 3 Given the potential to use radiation between cycles we will not incorporate myeloid growth factors a priori but may consider there secondary addition if she has excessive cytopenias and/or any issues with neutropenic fever during her first cycle. We have spoken fundamentally that this is not going to be curative therapy, that the degree and durability of her response is uncertain with many patients relapsing in months to a year or 2. We note that there is salvage therapy available but again therapy is ultimately purely palliative. CONFIRMATION OF CONSENT has been initially completed 1. We discussed that s/he is diagnosed with small cell lung cancer and that our proposed treatment program will be etoposide/carboplatinum with subsequent atezolizumab and potential radiation as outlined above 2. We discussed that the intent of this treatment is to palliate. 3. We discussed that this treatment program can be associated with toxicities including: Nausea, vomiting, hair loss, organ toxicities especially to the liver, lung, nervous system and kidneys. We discussed in particular that this chemotherapy can be associated with low blood counts which can lead to threatening bleeding and/or infection and have emphasized the emergent need to notify us for temperature elevations or unusual bruising or bleeding. We discussed that there may be other toxicities and side effects that are not so easily anticipated and that s/he should be in touch with us quickly for any changes in clinical status. We have indicated that we cannot be assured of the degree or durability of his/her response. 4. We discussed that alternative approaches to treatment could include: no treatment but with the risk of further progression of the condition, other chemo. We discussed that we are happy to facilitate a second opinion at any time in his/her treatment course to make sure that there has been a complete review of alternatives. 5. Patient has been given additional educational materials by our nursing staff and online websites that can give additional information about the disease and the planned treatment. Patient has had an opportunity to ask questions and I have answered all questions to the best my ability during our visit. We have scheduled a family meeting but she would like to proceed even prior to that meeting and feels adequately informed to proceed now. I have emphasized the continuous availability of staff day and night to immediately discuss any changes in status. 6. We have completed an initial discussion of informed consent and given verbal consent to proceed. I have given her printed materials to review as well as a copy of our document of informed consent and will complete that formally with her prior to the actual start of chemotherapy. 7. We have emphasized that s/he can withdraw his/her consent and stop treatment at any time and for any reason of his/her choosing Please also see additional information supplied to the patient in the form of patient after visit summary that is deposited in the cancer [facility] electronic record, a printed copy was given to her as well as printed copies regarding the agents to be used generated from the up-to-date patient information database Plan Plan to start chemotherapy August 25, 2022 Will need to watch closely for tumor lysis Confirmatory family meeting planned for 5 PM August 25 Admission and Anticipated Discharge Date Admission Date: August 17, 2022 Subjective Still with some back pain but breathing well. Port-A-Cath has been placed and she tolerated that procedure well. She is alert, fully capable decision making and does want to proceed with treatment Physical Exam Physical Exam: Alert, cooperative, clearly some limitation from her back pain but is mobile able to sit up in bed and walk for short distances. Lungs show some mild decreased breath sounds on the right side but she is not tachypneic. Was tachycardic at the time of my exam with a pulse of 140 but that is subsequently stabilized and she is afebrile with stable vital signs otherwise. Abdominal examination is nonacute with some mild liver tenderness but no rigidity or rebound. Neurologic exam is nonfocal and she specifically has no gross cerebellar deficits nor any focal neurological changes. Mental status is completely intact Results & Data Results & Data ([facility]) Vital Signs (Past 12 Hours) Vital Signs Temp Pulse Pulse Resp BP Pulse Ox O2 Del Method 08/25/22 03:50 36.5 C 61 18 119/72 91 Nasal Cannula 08/24/22 22:54 36.4 C L 67 18 124/77 94 Nasal Cannula 08/24/22 22:48 84 08/24/22 18:56 36.4 C L 74 18 128/79 94 Room Air O2 Flow Rate 08/25/22 03:50 2 08/24/22 22:54 2 08/24/22 22:48 08/24/22 18:56 PG Care Time/CCT Total # of Minutes Spent Total Time Spent with Patient: Total time spent is greater than 50% in coordination of care (as documented) at patient's floor/unit and/or counseling patient: Coding Level of Care Code 78796 Inpt Consult Level 4 History Expanded Problem Focused Exam Expanded Problem Focused Medical Decision Making High Complexity Diagnoses Small cell lung cancer C34.90 Time Spent (min) 50 Comment 10 min chrt review, 25 min with pt, 15 min assembling treatment plan
[2022-08-25] MEDS ORDERED: PALONOSETRON 0.25 MG in SYRINGE 0 ML IV SCH ×2 (08:00→08:30)
[2022-08-25] MEDS ORDERED: FOSAPREPITANT DIMEGLUMINE 150 MG in SODIUM CHLORIDE 0.9% 145 ML IV SCH ×2 (08:00→08:30)
[2022-08-25] MEDS: DICLOFENAC SOD 1% GEL 100 GM TUBE EXT SCH ×2 (08:03→20:12)
[2022-08-25] MEDS: POLYETHYLENE (MIRALAX) 17 GM PACK PO SCH (08:03)
[2022-08-25] MEDS: ADVANCED PROBIOTIC 1250 MG CAPSULE PO SCH (08:03)
[2022-08-25] MEDS: PANTOprazole 40 MG TAB PO SCH (08:03)
[2022-08-25] MEDS: LANTUS PER UNIT CHARGE SQ SCH (08:06)
[2022-08-25] MEDS: METOPROLOL SUCC 50MG EXT REL TAB PO SCH (08:06)
[2022-08-25] MEDS: DOCUSATE SODIUM/SENNA 50/8.6MG TAB PO SCH (08:06)
[2022-08-25] MEDS ORDERED: METOPROLOL TARTRATE 1 MG/ML VIAL IV STA (08:19)
[2022-08-25] MEDS: INSULIN ASPART PER UNIT SC SCH ×4 (08:26→20:11)
[2022-08-25] MEDS ORDERED: METOPROLOL SUCC 25MG EXT REL TAB PO SCH (08:30)
--- NOTE | 2022-08-25 08:49 | Radiation Oncology Progress Nt ---
Date of Service August 25, 2022 Assessment & Plan (1) Small cell lung cancer: Plan: 77-year-old white female diagnosed with small cell carcinoma of the lung with metastasis. Currently her pain is controlled. She is resting comfortably. She was able to go from lying to sitting without difficulty. She was then able to lay back down. With this activity she does note increase in her heart rate. MRI of the brain has been completed. This did showed one 5 mm enhancing lesion in in the left cerebellar hemisphere. This is going to be followed. She is going to begin chemotherapy today. She had a port placed yesterday. There were no postoperative issues. We discussed radiation therapy which will be planned between cycles of chemotherapy. She was in agreement to come down tomorrow to our office for a simulation. I reviewed with her this will be used for her treatment planning. She was in agreement. She did ask for premedication for pain prior to the simulation. Midlevel spent [5] minutes in preparation for this follow up evaluation including reviewing all the clinical records, reviewing laboratory studies, pathology reports and imaging results. Midlevel spent [20] minutes with direct face to face interaction with the patient and/or family including performing a physical exam and answering all questions. Midlevel spent [5] minutes documenting this patient's visit. Plan ATTENDING ADDENDUM: I have reviewed the midlevel provider's note and agree with the documentation. I have discussed plans and recommendations with the midlevel provider. Additional documentation provided below. Assessment: Ms. Elizabeth is a 77-year-old female with a new extensive stage small cell lung carcinoma. The patient does have pending SVC syndrome and also has m etastatic disease involving the lumbar spine which she is symptomatic from but her pain is controlled from medication. Additionally, the patient has a solitary focus of metastatic disease involving the left cerebellum for which she is currently asymptomatic. The patient's case was discussed at our multidisciplinary tumor board on 08/24/[address] Hogan from medical oncology. Plan: 1. Systemic chemotherapy for treatment of SVC syndrome and metastatic small cell carcinoma in general. First cycle to be administered in hospital under the supervision of Dr. Hogan. 2. Tentative CT simulation for treatment of the lumbar spine tomorrow. Plan for radiation therapy to completed between cycle 1 and cycle 2 of chemotherapy. Plan for 10 fractions. This plan can be adjusted if the patient's pain does significantly improve and she no longer requires radiation therapy. 3. Observation for the solitary focus of metastatic disease in the brain. This may respond to chemotherapy. The plan will be to repeat MRI of the brain surveillance after several cycles of chemotherapy. 4. Continue pain management as per palliative care and primary medical team. 5. Please call us any further questions or concerns. Admission and Anticipated Discharge Date Admission Date: August 17, 2022 Subjective Patient is currently resting comfortably. She does feel her heart rate increase with movement. Pain is fairly well controlled. She was able to come from a lying position to sitting without increased discomfort. She is going to undergo chemotherapy today. She had her port placed yesterday. No issues postoperatively. Physical Exam Constitutional: WD/WN, vitals as above ENMT: No facial edema noted. Neck: No edema noted. Respiratory: normal respiratory effort, lungs clear to auscultation Cardiovascular: Rate/Rhythm: + tachycardic Skin: no rashes, warm and dry Psychiatric: A+Ox3, euthymic affect Results & Data ([facility]) Vital Signs (Past 12 Hours) Vital Signs Temp Pulse Pulse Resp BP BP Pulse Ox 08/25/22 08:25 161 H 104/73 08/25/22 08:18 114 H 104/73 08/25/22 07:41 36.5 C 69 16 115/66 97 08/25/22 03:50 36.5 C 61 18 119/72 91 08/24/22 22:54 36.4 C L 67 18 124/77 94 08/24/22 22:48 84 O2 Del Method O2 Flow Rate 08/25/22 08:25 08/25/22 08:18 08/25/22 07:41 Room Air 08/25/22 03:50 Nasal Cannula 2 08/24/22 22:54 Nasal Cannula 2 08/24/22 22:48 Diagnostic Findings [facility], [phone] Magnetic Resonance Report Patient: WINNIE ELIZABETH Date: 08/17/22MR#: [id number]: [address] [facility] RDAcct ID:[id number]: Date: 1945[facility] Zip: [place], [place] [address]Tdy: 77Location: 2SSex: FRoom/Bed: [id number] Phy: Arturo Roach MDDiagnosis: HYPONATREMIAPri Phy: Delbert Miramontes MDService Date: 08/23/22Fa Phy:Interpreting Phy: Elan Dotson MDAdmit Phy: Alyson Elkins D.O. Ordering Phy: Arturo Roach MD cc: ~ MRI OF THE BRAIN WITHOUT AND WITH IV CONTRAST CLINICAL HISTORY: Small cell lung cancer. Evaluate for metastatic disease. COMPARISON STUDY: No previous studies for comparison. TECHNIQUE: Utilizing a 1.5 Elisa magnet and dedicated coil, multiplanar, multiecho imaging of the brain was performed pre and postcontrast administration. IV administration of Gadavist contrast was uneventful. Thin cut T1 post contrast imaging was performed. FINDINGS: There are no foci of restricted diffusion to suggest acute infarct. No acute intracranial hemorrhage, midline shift or mass effect is present. Ventricular system is unremarkable. Basal cisterns are patent. There are no extra-axial collections. Flow-voids for the major intracranial vessels are present. White matter T2 hyperintense foci suggest small vessel disease. Note is made of multifocal marrow replacement within the calvarium and visualized portions of the cervical spine. There is dural thickening and enhancement associated with a right parietal lesion. Note is made of a 5 mm intra-axial enhancing lesion within the left cerebellar hemisphere. This has mild associated vasogenic edema. No additional parenchymal lesions are identified. IMPRESSION: 1. 5 mm enhancing lesion within left cerebellar hemisphere suggestive of a metastasis. Mild associated vasogenic edema. 2. Numerous calvarial and upper cervical spine metastases. Dural thickening and enhancement associated with a right parietal calvarial lesion may reflect mild dural extension of tumor. ACT 112: Negative or not required by law. Electronically signed by: Elan Dotson M.D. 08/23/2022 6:22 PM
[2022-08-25] MEDS ORDERED: CARBOPLATIN IV SCH (09:00)
[2022-08-25] MEDS ORDERED: SODIUM CHLORIDE 0.9% IV SCH (09:00)
--- NOTE | 2022-08-25 09:51 | Palliative Care Progress Note ---
Date of Service August 25, 2022 Assessment & Plan (1) Palliative care encounter: Plan: See #3 (2) Cancer related pain: Plan: I met with pt earlier today prior to this meeting, pain is better with MSIR 15mg. She is anxious and would like ativan, which I have ordered. no other changes at this time. (3) Counseling regarding advanced directives and goals of care: Plan: family meeting 5pm-6pm at pt bedside with her , daughter and son along with Dr Hogan and myself. Dr Hogan provided detailed overview of her dx, prognosis (not curable, maybe controllable, hopefully will have quick response to this chemo) and plans for re imaging in about 8 weeks. No immediate plan for XRT at this time, the brain lesion is small and it is hoped the chemo will melt it away. I reviewed her pain medication regimen, goals of therapy and plans for follow up. She is asking for help managing her anxiety and would like Ativan which has helped in the past (I have ordered.) All questions answered to their apparent satisfaction. Patient reassured by family they will all chip in to help care for , for whom pt has been primary caregiver until now. (4) Small cell lung cancer: Plan Chemo initiated, today was C1D1. After C2 will have re imaging I will follow her for cancer related pain and sx mgt in OP clinic. Admission and Anticipated Discharge Date Admission Date: August 17, 2022 Subjective Starting chem today. Pain ok, using MSIR 15mg no n/v/d/c Family meeting today at 5pm/confirmed with family. Review of Systems Review of Systems: All systems reviewed & are unremarkable except as noted in Subjective Physical Exam Constitutional: well groomed and cooperative Eyes: PERRL, conjunctivae normal, anicteric sclerae ENMT: external ear and nose normal, oropharynx normal Mouth: + chipped teeth Neck: trachea midline, no thyromegaly Respiratory: no respiratory distress and no cough Auscultation: + diminished lung sounds (Decreased breath sounds at apices.) Cardiovascular: Rate/Rhythm: regular rate Vessels: normal peripheral pulses Extremities: normal capillary refill Gastrointestinal (Abdomen): normal bowel sounds, soft, nontender, no hepatosplenomegaly Skin: no rashes, warm and dry new port incision left anterior chest Neurologic: Gait not assessed due to pathologic fx. strength intact but some weakness. pt is AAOx3 Psychiatric: Orientation: alert and oriented x 3 Eye Contact: good eye contact Thought Process: goal directed thought process and linear/logical thought process Cognition: recent memory grossly intact, remote memory grossly intact, attention grossly intact and language grossly intact Insight: excellent insight Judgement: excellent judgement Results & Data ([facility]) Vital Signs (Past 12 Hours) Vital Signs Temp Pulse Pulse Resp BP BP Pulse Ox 08/25/22 08:51 74 108/62 08/25/22 08:25 161 H 104/73 08/25/22 08:18 114 H 104/73 08/25/22 07:41 36.5 C 69 16 115/66 97 08/25/22 03:50 36.5 C 61 18 119/72 91 08/24/22 22:54 36.4 C L 67 18 124/77 94 08/24/22 22:48 84 O2 Del Method O2 Flow Rate 08/25/22 08:51 08/25/22 08:25 08/25/22 08:18 08/25/22 07:41 Room Air 08/25/22 03:50 Nasal Cannula 2 08/24/22 22:54 Nasal Cannula 2 08/24/22 22:48 Laboratory Results labs and imaging reviewed PG Care Time/CCT Total # of Minutes Spent Total Time Spent: 90 Total Time Spent with Patient: Total time spent is greater than 50% in coordination of care (as documented) at patient's floor/unit and/or counseling patient: I spent 90 minutes overall addressing this case: 5 in medical data review/discussion with referring provider(s) and/or preparation for the visit 75 in direct interaction with the patient and family, over 2 visits through the day (20) Advance Care Planning/Goals of Care discussions as detailed above in note (must be >16min) 5 in subsequent review and synthesis of assessment and plan 5 in communicating with other providers regarding the patient's case: primary and oncology teams [place] [address] Subseq Hosp Care Lvl 3 Patient Type Established History Detailed Exam Detailed Medical Decision Making High Complexity Diagnoses Palliative care encounter Z51.5 Cancer related pain G89.3 Counseling regarding advanced directives and goals of care Z71.89 Small cell lung cancer C34.90
[2022-08-25] MEDS ORDERED: SOD CHL IV SCH (10:00)
[2022-08-25] MEDS ORDERED: ETOPOSIDE IV SCH (10:00)
[2022-08-25] MEDS ORDERED: POLYOLEFIN IV SCH (10:00)
[2022-08-25 10:15] LABS: BUN Creatinine Ratio 27.3 (10-20); Calcium 9.8 mg/dl (8.5-10.1); Creatinine Clr Calc Pharmacy 72.2 ml/min; Est GFR (African American) 97.4 ml/min; Potassium 3.7 mmol/L (3.5-5.1); Uric Acid 4.6 mg/dl (2.6-7.2)
[2022-08-25] MEDS ORDERED: Nursing to Pharmacy Communication SCH (11:00)
--- NOTE | 2022-08-25 11:35 | Surgery Progress Note ---
Date of Service August 25, 2022 Assessment & Plan (1) Small cell lung cancer: Plan: POD#1 left IJ mediport insertion site appears c/d/i, no infection port is okay for use we will sign off, please call with any questions/concerns Admission and Anticipated Discharge Date Admission Date: August 17, 2022 Subjective Patient is doing well. Noted some itchiness with the tape over the port site that is improved. Mild pain at site, otherwise no issues. Physical Exam Physical Exam: awake/alert, no distress Neck: surgical incisions appear c/d/i without signs of infection Results & Data ([facility]) Vital Signs (Past 12 Hours) Vital Signs Temp Pulse Pulse Resp BP BP Pulse Ox 08/25/22 08:51 74 108/62 08/25/22 08:25 161 H 104/73 08/25/22 08:18 114 H 104/73 08/25/22 07:41 36.5 C 69 16 115/66 97 08/25/22 03:50 36.5 C 61 18 119/72 91 O2 Del Method O2 Flow Rate 08/25/22 08:51 08/25/22 08:25 08/25/22 08:18 08/25/22 07:41 Room Air 08/25/22 03:50 Nasal Cannula 2 PG Care Time/CCT Total # of Minutes Spent Total Time Spent with Patient: Total time spent is greater than 50% in coordination of care (as documented) at patient's floor/unit and/or counseling patient: Coding Level of Care Code None Diagnoses Small cell lung cancer C34.90
--- NOTE | 2022-08-25 15:02 | Cardiology Progress Note ---
Date of Service August 25, 2022 Assessment & Plan (1) SVT (supraventricular tachycardia): Plan: -she did experience another paroxysm this morning. Symptomatic. -agree with increasing metoprolol tartrate 25 mg q.6 hours. -could consider use of amiodarone if she has a recurrence. (2) Metastatic cancer: Plan: -management per Dr. Hogan. Admission and Anticipated Discharge Date Admission Date: August 17, 2022 Subjective The patient is resting comfortably in bed without complaints of chest pain or dyspnea. She did experience palpitations during an episode of her SVT this morning. Physical Exam Physical Exam: In general is well-developed well-nourished white female no acute distress. HEENT exam is negative. Neck is supple with full carotid upst rokes. There are no carotid bruits. Jugular venous pressure is flat at 90. There is no thyromegaly. Cardiovascular exam reveals a regular rhythm with distant heart sounds. No obvious murmurs. Lungs are clear without rales, rhonchi or wheezes. Abdomen is soft without bruits. Extremities reveal intact radial artery pulses bilaterally. There is no peripheral edema. Results & Data ([facility]) Vital Signs (Past 12 Hours) Vital Signs Temp Pulse Pulse Resp BP BP Pulse Ox 08/25/22 06:09 67 08/25/22 08:51 74 108/62 08/25/22 08:25 161 H 104/73 08/25/22 08:18 114 H 104/73 08/25/22 07:41 36.5 C 69 16 115/66 97 08/25/22 03:50 36.5 C 61 18 119/72 91 O2 Del Method O2 Flow Rate 08/25/22 06:09 08/25/22 08:51 08/25/22 08:25 08/25/22 08:18 08/25/22 07:41 Room Air 08/25/22 03:50 Nasal Cannula 2 Diagnostic Findings quality assurance monitor body noted an episode of SVT this morning. Currently in sinus rhythm. PG Care Time/CCT Total # of Minutes Spent Total Time Spent with Patient: Total time spent is greater than 50% in coordination of care (as documented) at patient's floor/unit and/or counseling patient: Coding Level of Care Code 52544 Subseq Hosp Care Lvl 3 Diagnoses SVT (supraventricular tachycardia) I47.1 Metastatic cancer C79.9
[2022-08-25] MEDS: METOPROLOL TARTRATE 25 MG TAB PO SCH ×2 (15:50→20:13)
--- NOTE | 2022-08-25 16:51 | Electrocardiogram Report ---
Test Reason : Blood Pressure : / mmHG Vent. Rate : 147 BPM Atrial Rate : 156 BPM P-R Int : 000 ms QRS Dur : 088 ms QT Int : 298 ms P-R-T Axes : 000 034 266 degrees QTc Int : 466 ms Supraventricular tachycardia Marked ST abnormality, possible inferior subendocardial injury Abnormal ECG When compared with ECG of 24-AUG-2022 03:11, ST less depressed in Anterolateral leads Confirmed by Lionel Louis ([id number]) on 08/25/2022 4:51:25 PM Referred By: Shanti Watts Confirmed By:Lionel Louis
--- NOTE | 2022-08-25 16:51 | Electrocardiogram Report ---
Test Reason : Blood Pressure : / mmHG Vent. Rate : 069 BPM Atrial Rate : 069 BPM P-R Int : 166 ms QRS Dur : 076 ms QT Int : 390 ms P-R-T Axes : 027 019 026 degrees QTc Int : 417 ms Sinus rhythm with Premature atrial complexes Otherwise normal ECG When compared with ECG of 25-AUG-2022 07:58, (unconfirmed) Sinus rhythm has replaced Supraventricular tachycardia Vent. rate has decreased BY [address] no longer depressed in Inferior leads Confirmed by Lionel Louis ([id number]) on 08/25/2022 4:51:38 PM Referred By: Shanti Watts Confirmed By:Lionel Louis
--- NOTE | 2022-08-25 19:45 | Hospitalist Progress Note ---
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 MRI brain to be repeated in near future. Chemotherapy started this morning. Concern for impending SVC obstruction. Status post Mediport insertion by surgery ppreciated Allopurinol ongoing, dexamethasone pretreatment for nausea Palliative care following (2) SVT (supraventricular tachycardia): Plan: Metoprolol changed to 25 mg every 6 hours. Heart rate controlled since then. With a lung mass, she will probably keep going into SVT. Of significance the patient was n.p.o. for half the day yesterday for portacatheter placement. For her hyponatremia she is on a 1500 mL fluid restriction but does not even approach that in p.o. intake. Encourage p.o. in take to equal 1500 mJ total fluids a day discussed with RN as well as patient (3) Pathologic lumbar vertebral fracture: Plan: -Noted on CT Extensive multifocal marrow replacement consistent with metastatic disease. L4 and L5 pathologic fractures with mild loss of height. Possible minimal epidural extension of tumor at the L4 and L5 levels -Also Severe central canal stenosis at L4-L5 due to facet arthrosis, ligamentous hypertrophy and anterolisthesis with uncovering of the disc. - Mild to moderate central canal stenosis at L3-L4. -Multiple lesions throughout the cervical, thoracic spine Radiation oncology planning radiation to the lumbar spine -Pain is currently well-controlled with p.o. morphine sulfate which the patient is not asking much for. Discussed with RN. Appreciate Dr. Goel's input from palliative care. Morphine sulfate IV as needed to continue MS Lala IR increased to every 4 hours at 15 mg. (4) Lung collapse: Plan: No intervention as no symptoms. Pulmonology was consulted 08/20. 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 Sodium 132. Acceptable as asymptomatic. (6) Type 2 diabetes mellitus: Plan: Metformin I will have to Lantus dose as blood sugars just around 100. Currently on 5 unit twice dailywill change to 5 units daily (7) Hyperlipidemia: Plan: -Continue statin Plan Per oncology. Likely discharge after chemotherapy. Admission and Anticipated Discharge Date Admission Date: August 17, 2022 Subjective Patient was seen at 8 AM soon after she went into SVT at 170/min. She had walked to the bathroom and had palpitations but no dizziness or shortness of breath. She was eating breakfast with a heart rate in the 160s when I saw her at the bedside She got her usual dose of 50 mg metoprolol succinate p.o. Carotid massage and Valsalva was did not reduce her heart rate. After 5 to 6 minutes it came down spontaneously to the 90s but went right back up. I gave her 5 mg IV metoprolol and subsequent to that her heart rate remained in the 70s to 90s. EKG revealed A. fib with RVR and when the heart rate decreased, she was in normal sinus rhythm on EKG Pain control is good. Mostly neck pain. Sleeps well. Eating well. Looking forward to starting chemotherapy today and likely discharge in 2 days Denies sad mood or crying spells. Physical Exam Physical Exam: At 815 hours alert and pleasant, quite conversant , eating breakfast with a heart rate in the 170s, comfortable on room air, walked to the chair Head and neck no thyromegaly, anicteric sclerae, normal extraocular movements Chest clear to auscultation Abdomen obese nontender Extremities trace edema HUNTER [employer] grossly intact, gait not assessed today, Psych normal affect with good insight Results & Data Results & Data ([facility]) Vital Signs (Past 12 Hours) Vital Signs Temp Pulse Pulse Resp BP BP Pulse Ox 08/25/22 19:18 36.5 C 70 18 94/58 L 94 08/25/22 14:14 73 08/25/22 15:54 36.3 C L 70 18 131/77 92 08/25/22 08:51 74 108/62 08/25/22 08:25 161 H 104/73 08/25/22 08:18 114 H 104/73 08/25/22 07:41 36.5 C 69 16 115/66 97 O2 Del Method 08/25/22 19:18 Room Air 08/25/22 14:14 08/25/22 15:54 Room Air 08/25/22 08:51 08/25/22 08:25 08/25/22 08:18 08/25/22 07:41 Room Air PG Care Time/CCT Total # of Minutes Spent Total Time Spent with Patient: Total time spent is greater than 50% in coordination of care (as documented) at patient's floor/unit and/or counseling patient: Coding Level of Care Code 28625 Subseq Hosp Care Lvl 3 Diagnoses Small cell lung cancer C34.90 SVT (supraventricular tachycardia) I47.1 Pathologic lumbar vertebral fracture M84.48XA Lung collapse J98.19 Hyponatremia E87.1 Type 2 diabetes mellitus E11.9 Hyperlipidemia E78.5
[2022-08-25] MEDS: SIMVASTATIN 40 MG TAB PO SCH (20:11)
[2022-08-25] MEDS: allopurinoL 300 MG TAB PO SCH (20:11)
[2022-08-26] MEDS: METOPROLOL TARTRATE 25 MG TAB PO SCH ×4 (02:52→20:41)
[2022-08-26] MEDS: MoRPHine SULFATE IR 15 MG TAB (IMMEDIATE RELEASE) PO PRN ×2 (04:36→15:14)
[2022-08-26] MEDS: INSULIN ASPART PER UNIT SC SCH ×4 (07:17→20:41)
[2022-08-26] MEDS ORDERED: dexAMETHasone 4 MG TAB PO SCH (08:00)
[2022-08-26] MEDS: LANTUS PER UNIT CHARGE SQ SCH (08:31)
[2022-08-26] MEDS: DICLOFENAC SOD 1% GEL 100 GM TUBE EXT SCH ×2 (08:32→20:41)
[2022-08-26] MEDS: POLYETHYLENE (MIRALAX) 17 GM PACK PO SCH (08:32)
[2022-08-26] MEDS: DOCUSATE SODIUM/SENNA 50/8.6MG TAB PO SCH (08:32)
[2022-08-26] MEDS: MoRPHine SULFATE 2 MG/ML CARP IV PRN (08:32)
[2022-08-26] MEDS: PANTOprazole 40 MG TAB PO SCH (08:33)
[2022-08-26] MEDS: ADVANCED PROBIOTIC 1250 MG CAPSULE PO SCH (08:33)
[2022-08-26] MEDS: dexAMETHasone 4 MG TAB PO SCH (10:09)
[2022-08-26 10:40] LABS: Hematocrit (blood only) 37.8 % (34.1-44.9); Mean Corpuscular Hemoglobin 29.2 pg (25.0-34.0); Mean Corpuscular Hgb Conc 34.4 g/dL (32.0-36.0); Mean Corpuscular Volume 84.9 fL (80.0-100.0); Mean Platelet Volume 10.1 fL (9.4-12.3); Platelet Count 365 K/uL (130-400); RDW Coefficient of Variation 13.5 % (11.5-14.5); RDW Standard Deviation 41.7 fL (36.4-46.3); Red Blood Count 4.45 M/uL (3.93-5.22); White Blood Count 10.18 K/ul (4.8-10.8)
[2022-08-26 11:19] LABS: Calcium 9.9 mg/dl (8.5-10.1); Creatinine Clr Calc Pharmacy 79.8 ml/min; Est GFR (African American) 100.5 ml/min; Est GFR (Non-African American) 86.7 ml/min; Potassium 3.7 mmol/L (3.5-5.1)
[2022-08-26] MEDS: ETOPOSIDE 200 MG in SODIUM CHLORIDE 0.9% 500 ML IV SCH (11:20)
[2022-08-26] MEDS ORDERED: LEVALBUTEROL TARTRATE 15 GM HFA.AER.AD INH PRN (15:48)
[2022-08-26] MEDS ORDERED: LORazepam 1 MG TAB PO PRN (16:03)
--- NOTE | 2022-08-26 18:05 | Hospitalist Progress Note ---
Date of Service August 26, 2022 Assessment & Plan (1) Small cell lung cancer: Plan: Stage 4 - newly diagnosed via liver biopsy. Primary site - RUL. Metastatic to the brain (cerebellum), liver, adrenal glands, lymph nodes, and spine (multiple locations in c-spine, t-spine, and l-spine). Due to concern for impending SVC obstruction she is s/p first round of chemotherapy yesterday. s/p carboplatin/etoposide/dexamethasone 08/25/22. s/p etoposide 08/26. Then to have etoposide tomorrow. She had Mediport insertion by surgery 08/24/22 without incident. She had CT simulation today for upcoming radiation to her lumbar spine, to be completed as outpatient. Appreciate gen surg, palliative care, oncology, and rad onc consultations and recommendations/management. Mild SIADH due to her advanced cancer - stable Na levels. Allopurinol prophylaxis. (2) SVT (supraventricular tachycardia): Plan: Metoprolol changed to 25 mg every 6 hours 08/25/22. Did have several brief runs of SVT this am, longest about 3 min. Does have palpitations but no other symptoms. Episodes self-terminate. I spoke with Dr Louis today - amiodarone is an option, but hold off for now. Cont metoprolol as above. (3) Pathologic lumbar vertebral fracture: Plan: L4 and L5 pathologic fractures with mild loss of height. Possible minimal epidural extension of tumor at the L4 and L5 levels Also Severe central canal stenosis at L4-L5 due to facet arthrosis, ligamentous hypertrophy and anterolisthesis with uncovering of the disc. Mild to moderate central canal stenosis at L3-L4. Multiple lesions throughout the cervical, thoracic spine as well. Radiation oncology planning radiation to the lumbar spine in near-future as outpatient; CT simulation completed today. Pain under good control during the visit. Appreciate palliative care assistance with pain meds, etc. 25-OH vit D level earlier this year wnl. (4) Lung collapse: Plan: RUL, 2nd to SCLC. O2 sats wnl. Mild wheezing, etc due to bronchial compression. Can use xopenex HFA prn if desired. (5) Hyponatremia: Plan: SIADH from cancer. Urine osm > serum osm, urine Na high. Patient euvolemic. Fluid restriction to 1500cc/day. Sodium 134 today. Lowest Na level since admission - 123. Consider salt tablet daily at discharge in addition to fluid restriction. BMP am for stability. (6) Type 2 diabetes mellitus: Plan: resume metformin at d/c insulins in meantime Hba1c 6.5% earlier this year Recheck am (7) Hyperlipidemia: Plan: Continue statin (8) Hypertension: Plan: controlled off her usual lisinopril using metoprolol for SVT which will Rx her HTN as well of course (9) DVT prophylaxis: Plan: lovenox was placed on hold (for Mediport placement?) can resume in am Plan passed PT eval d/c home after chemo is complete Admission and Anticipated Discharge Date Admission Date: August 17, 2022 Subjective patient had no SVT overnight however, this am, she had several brief runs of such (<30 seconds each) and also had ~3 minute run no prolonged episodes lasting longer than 5-10 minutes episodes self-terminate with resting in bed or the chair she endorses palpitations but denies cp, dizziness, lightheadedness, or near- syncope she has minimal dyspnea on exertion but none at rest no a.fib or flutter no ventricular dysrhythmia seen of note - 2 doses of metoprolol were held overnight due to low-normal BPs but she did receive her metoprolol today patient had CT simulation for future radiation treatments of her l-spine denies significant pain of her l-spine today she is hopeful for d/c soon eating well worked with PT - inge marie, cleared for home Review of Systems Review of Systems: gen - no fevers; tolerated chemo yesterday without incident cv - no chest pain, mild orthopnea but no PND pulm - mild [place]; occasional cough GI - no pain, no nausea or emesis Physical Exam Physical Exam: gen - very pleasant, NAD neck - no JVD; no edema or swelling mouth - MMM heart - RRR, s1 s2, no murmur lungs - minimal faint crackle with focal wheeze RUL; otherwise CTA b/l, no basilar rales abd - soft NT ND BS+ ext - no edema, pulses 2+ b/l; arms without edema psych - a/o x 3 Results & Data Results & Data ([facility]) Vital Signs (Past 12 Hours) Vital Signs Temp Pulse Pulse Resp BP BP Pulse Ox 08/26/22 14:17 67 08/26/22 15:13 36.5 C 74 18 135/76 94 08/26/22 12:35 36.3 C L 61 16 126/68 08/26/22 06:10 58 L 08/26/22 11:17 36.3 C L 65 16 107/67 95 08/26/22 08:10 36.4 C L 69 18 128/70 95 O2 Del Method 08/26/22 14:17 08/26/22 15:13 Room Air 08/26/22 12:35 Room Air 08/26/22 06:10 08/26/22 11:17 Room Air 08/26/22 08:10 Laboratory Results Laboratory Results - last 24 hr 08/25/22 08/26/22 08/26/22 20:04 07:14 10:19 WBC 10.18 RBC 4.45 Hgb 13.0 Hct 37.8 MCV 84.9 MCH 29.2 MCHC 34.4 RDW Std Deviation 41.7 RDW Coeff of Charlie 13.5 Plt Count 365 MPV 10.1 Sodium Potassium Chloride Carbon Dioxide Anion Gap BUN Creatinine Est Cr Clr Drug Dosing Est GFR ( Amer) Est GFR (Non-Af Amer) BUN/Creatinine Ratio Glucose POC Glucose 151 H 111 H Calcium 08/26/22 08/26/22 08/26/22 10:19 11:43 16:31 WBC RBC Hgb Hct MCV MCH MCHC RDW Std Deviation RDW Coeff of Charlie Plt Count MPV Sodium 134 L Potassium 3.7 Chloride 100 Carbon Dioxide 26 Anion Gap 8 BUN 21 Creatinine 0.60 Est Cr Clr Drug Dosing 79.8 Est GFR ( Amer) 100.5 Est GFR (Non-Af Amer) 86.7 BUN/Creatinine Ratio 35.0 H Glucose 132 H POC Glucose 114 H 141 H Calcium 9.9 PG Care Time/CCT Total # of Minutes Spent Total Time Spent with Patient: Total time spent is greater than 50% in coordination of care (as documented) at patient's floor/unit and/or counseling patient: Coding Level of Care Code 82908 Subseq Hosp Care Lvl 2 Diagnoses Small cell lung cancer C34.90 SVT (supraventricular tachycardia) I47.1 Pathologic lumbar vertebral fracture M84.48XA Lung collapse J98.19 Hyponatremia E87.1 Type 2 diabetes mellitus E11.9 Hyperlipidemia E78.5 Hypertension I10 DVT prophylaxis Z29.9
[2022-08-26] MEDS: allopurinoL 300 MG TAB PO SCH (20:41)
[2022-08-26] MEDS: SIMVASTATIN 40 MG TAB PO SCH (20:41)
[2022-08-27] MEDS: MoRPHine SULFATE IR 15 MG TAB (IMMEDIATE RELEASE) PO PRN ×2 (01:18→21:01)
[2022-08-27] MEDS: METOPROLOL TARTRATE 25 MG TAB PO SCH ×3 (03:29→16:37)
--- NOTE | 2022-08-27 07:27 | Hospitalist Progress Note ---
Date of Service August 26, 2022 Assessment & Plan (1) Small cell lung cancer: Plan: Tolerated first 2 days of chemotherapy without major incident. Labs tomorrow morning should indicate whether there is any concerns over tumor lysis. So long she does well she can be discharged after her third dose of chemotherapy is complete and we are assured of metabolic and cardiac stability. We will coordinate outpatient follow-up with anticipated neck cycle of chemotherapy in approximately 3 weeks. Did warn her she needs to be in touch with us immediately after discharge about any fever or changes in clinical status. We will need to make assessments of her back pain as to the need for interim radiation sometime next week Plan Discharge when stable and will need outpatient oncology follow-up next week Admission and Anticipated Discharge Date Admission Date: August 17, 2022 Subjective Feels much improved. Good mobility with minimal back pain. No breathing problems, nausea/vomiting or other acute complaints related to the chemotherapy Physical Exam Physical Exam: Vital signs stable, not currently tachycardic. Good spirits, intact mental status, overall stable exam Results & Data Results & Data ([facility]) Vital Signs (Past 12 Hours) Vital Signs Temp Pulse Pulse Resp BP BP Pulse Ox 08/27/22 03:26 36.5 C 59 L 16 127/81 95 08/26/22 22:59 36.3 C L 62 16 130/72 96 08/26/22 22:43 54 L 08/26/22 19:40 36.3 C L 67 20 142/80 H 96 O2 Del Method 08/27/22 03:26 Room Air 08/26/22 22:59 Room Air 08/26/22 22:43 08/26/22 19:40 Room Air PG Care Time/CCT Total # of Minutes Spent Total Time Spent with Patient: Total time spent is greater than 50% in coordination of care (as documented) at patient's floor/unit and/or counseling patient: Coding Level of Care Code 38149 Subseq Hosp Care Lvl 1 Diagnoses Small cell lung cancer C34.90 Time Spent (min) 15
[2022-08-27] MEDS: PANTOprazole 40 MG TAB PO SCH (08:24)
[2022-08-27] MEDS: INSULIN ASPART PER UNIT SC SCH ×4 (08:24→21:18)
[2022-08-27] MEDS: DICLOFENAC SOD 1% GEL 100 GM TUBE EXT SCH ×2 (08:25→20:55)
[2022-08-27] MEDS: dexAMETHasone 4 MG TAB PO SCH (08:25)
[2022-08-27] MEDS: ADVANCED PROBIOTIC 1250 MG CAPSULE PO SCH (08:25)
[2022-08-27] MEDS: LANTUS PER UNIT CHARGE SQ SCH (08:28)
[2022-08-27] MEDS: MoRPHine SULFATE 2 MG/ML CARP IV PRN (08:32)
[2022-08-27 08:57] LABS: Basophils # (auto) 0.03 K/uL (0-0.2); Basophils % (auto) 0.3 %; Eosinophils # (auto) 0.06 K/uL (0-0.50); Eosinophils % (auto) 0.5 %; Hematocrit (blood only) 38.2 % (34.1-44.9); Immature Granulocytes # (auto) 0.05 K/uL (0.00-0.02); Immature Granulocytes % (auto) 0.4 %; Lymphocytes # (auto) 3.14 K/uL (1.2-3.4); Lymphocytes % (auto) 27.9 %; Mean Corpuscular Hemoglobin 29.4 pg (25.0-34.0); Mean Corpuscular Volume 86.4 fL (80.0-100.0); Mean Platelet Volume 10.4 fL (9.4-12.3); Monocytes # (auto) 0.59 K/uL (0.24-0.82); Monocytes % (auto) 5.2 %; Neutrophils # (auto) 7.39 K/uL (1.4-6.5); Neutrophils % (auto) 65.7 %; Platelet Count 353 K/uL (130-400); RDW Coefficient of Variation 13.5 % (11.5-14.5); RDW Standard Deviation 42.3 fL (36.4-46.3); Red Blood Count 4.42 M/uL (3.93-5.22); White Blood Count 11.26 K/ul (4.8-10.8)
[2022-08-27] MEDS ORDERED: PALONOSETRON 0.25 MG in SYRINGE 0 ML IV SCH (09:30)
[2022-08-27 09:50] LABS: BUN Creatinine Ratio 33.8 (10-20); Calcium 9.3 mg/dl (8.5-10.1); Creatinine Clr Calc Pharmacy 70.4 ml/min; Est GFR (African American) 96.4 ml/min; Est GFR (Non-African American) 83.2 ml/min; Magnesium 1.7 mg/dl (1.7-2.4); Potassium 3.5 mmol/L (3.5-5.1); Uric Acid 3.1 mg/dl (2.6-7.2)
[2022-08-27] MEDS ORDERED: AMIODARONE 200 MG TAB PO ONE (09:53)
--- NOTE | 2022-08-27 10:05 | Cardiology Progress Note ---
Date of Service August 27, 2022 Assessment & Plan (1) SVT (supraventricular tachycardia): Plan: -numerous episodes of an SVT noted on telemetry. -discussed initiating an amiodarone infusion, however, she is not interested as she plans on discharge today. -will therefore start amiodarone 200 mg p.o. t.i.d. -will discontinue simvastatin due to a drug-drug interaction with amiodarone. -continue metoprolol tartrate. -I am happy to see her in follow-up. (2) Metastatic cancer: Plan: -management per Dr. Hogan. Admission and Anticipated Discharge Date Admission Date: August 17, 2022 Subjective The patient is stable this morning in ambulating around he room. She is noting numerous episodes of palpitations. Physical Exam Physical Exam: In general is well-developed well-nourished white female no acute distress. HEENT exam is negative. Neck is supple with full carotid upstrokes. There are no carotid bruits. Jugular venous pressure is flat at 90. There is no thyromegaly. Cardiovascular exam reveals a regular rhythm with distant heart sounds. No obvious murmurs. Lungs are clear without rales, rhonchi or wheezes. Abdomen is soft without bruits. Extremities reveal intact radial artery pulses bilaterally. There is no peripheral edema. Results & Data ([facility]) Vital Signs (Past 12 Hours) Vital Signs Temp Pulse Pulse Resp BP Pulse Ox O2 Del Method 08/27/22 08:06 36.5 C 71 18 139/85 96 Room Air 08/27/22 03:26 36.5 C 59 L 16 127/81 95 Room Air 08/26/22 22:59 36.3 C L 62 16 130/72 96 Room Air 08/26/22 22:43 54 L Diagnostic Findings traffic monitor specialist notes numerous paroxysms of an SVT. PG Care Time/CCT Total # of Minutes Spent Total Time Spent with Patient: Total time spent is greater than 50% in coordination of care (as documented) at patient's floor/unit and/or counseling patient: Coding Level of Care Code 31749 Subseq Hosp Care Lvl 3 Diagnoses SVT (supraventricular tachycardia) I47.1 Metastatic cancer C79.9
[2022-08-27] MEDS: DOCUSATE SODIUM/SENNA 50/8.6MG TAB PO SCH (10:30)
[2022-08-27] MEDS: POLYETHYLENE (MIRALAX) 17 GM PACK PO SCH (10:30)
[2022-08-27] MEDS: ETOPOSIDE 200 MG in SODIUM CHLORIDE 0.9% 500 ML IV SCH (10:38)
[2022-08-27 11:13] LABS: Estimated Average Glucose 134 mg/dl; Hemoglobin A1C 6.3 % (4.5-5.6)
[2022-08-27] MEDS: ENOXAPARIN INJ 40 MG/0.4 ML SYR SQ SCH ×2 (11:40→21:19)
[2022-08-27] MEDS ORDERED: AMIODARONE 200 MG TAB PO SCH (12:00)
[2022-08-27] MEDS ORDERED: AMIODARONE IV BOLUS & DRIP IV STA (14:39)
[2022-08-27] MEDS ORDERED: 0.2 MICRON FILTER SET 1 EACH IV STA (14:39)
[2022-08-27] MEDS ORDERED: STAT IV Infusion **Titration per Protocol STA (14:39)
[2022-08-27] MEDS ORDERED: AMIODARONE / D5W 150 MG/100 ML BAG IV STA (14:43)
[2022-08-27] MEDS ORDERED: AMIODARONE / D5W 360 MG/200 ML BAG IV ONE (14:49)
[2022-08-27] MEDS: busPIRone 5 MG TAB PO SCH ×2 (16:14→20:58)
[2022-08-27 20:26] LABS: Appearance Urine Clear (Clear); Bacteria Urine Automated Negative (Negative); Bilirubin Urine Negative (Negative); Blood Urine Negative (Negative); Color Urine Yellow; Epithelial Cell Urine Auto >30 /lpf (0-5); Glucose Urine UA Negative (Negative); Ketones Urine Negative (Negative); Leukocyte Esterase Urine Trace (Negative); Nitrite Urine Negative (Negative); Protein Urine Trace (Negative); RBC Urine Automated 0-4 /hpf (0-4); Urobilinogen Urine Negative (Negative); pH Urine 5.5 (4.5-7.5)
[2022-08-27] MEDS ORDERED: AMIODARONE / D5W 360 MG/200 ML BAG IV SCH (20:45)
--- NOTE | 2022-08-27 20:51 | Hospitalist Progress Note ---
Date of Service August 27, 2022 Assessment & Plan (1) SVT (supraventricular tachycardia): Plan: Despite metoprolol 25 mg every 6 hours she continues with too numerous to count episodes of SVT. She is symptomatic from such. Initially she was averse to staying overnight in the hospital. Thus, she was placed on PO amiodarone this am. However, after much discussion, she reconsidered and was agreeable to staying hospitalized. Hold PO amiodarone. Switch to amio drip with bolus. Cont BB - change to 50mg BID. At discharge will change amiodarone to 200mg BID. Care d/w Dr Louis from cardiology. (2) Small cell lung cancer: Plan: Stage 4 - newly diagnosed via liver biopsy. Primary site - RUL. Metastatic to the brain (cerebellum), liver, adrenal glands, lymph nodes, and spine (multiple locations in c-spine, t-spine, and l-spine). Due to concern for impending SVC obstruction she is s/p first round of chemotherapy yesterday. s/p carboplatin/etoposide/dexamethasone 08/25/22. s/p etoposide 08/26. s/p etoposide again today. She had Mediport insertion by surgery 08/24/22 without incident. No issues. She had CT simulation yesterday for upcoming radiation to her lumbar spine, to be completed as outpatient. Appreciate gen surg, palliative care, oncology, and rad onc consultations and recommendations/management. Mild SIADH due to her advanced cancer - stable Na levels but likely needs salt supplementation. Cont Allopurinol prophylaxis. (3) Pathologic lumbar vertebral fracture: Plan: L4 and L5 pathologic fractures with mild loss of height. Possible minimal epidural extension of tumor at the L4 and L5 levels Also Severe central canal stenosis at L4-L5 due to facet arthrosis, ligamentous hypertrophy and anterolisthesis with uncovering of the disc. Mild to moderate central canal stenosis at L3-L4. Multiple lesions throughout the cervical, thoracic spine as well. Radiation oncology planning radiation to the lumbar spine in near-future as outpatient; CT simulation completed today. Pain under good control with morphine prn. Appreciate palliative care assistance with pain meds, etc. 25-OH vit D level earlier this year wnl. (4) Lung collapse: Plan: RUL, 2nd to SCLC. O2 sats wnl. Mild wheezing, etc due to bronchial compression. Can use xopenex HFA prn if desired. (5) Hyponatremia: Plan: SIADH from cancer. Urine osm > serum osm, urine Na high. Patient euvolemic. Fluid restriction to 1500cc/day. Sodium 132 today. Lowest Na level since admission - 123. Consider salt tablet daily at discharge in addition to fluid restriction. BMP am for stability. (6) Type 2 diabetes mellitus: Plan: resume metformin at d/c insulins in meantime Hba1c 6.5% earlier this year A1c 6.3% today stable control (7) Hyperlipidemia: Plan: Continue statin (8) Hypertension: Plan: controlled off her usual lisinopril using metoprolol for SVT which will Rx her HTN as well of course (9) DVT prophylaxis: Plan: resumed lovenox Plan passed PT eval d/c home once SVT is improved s/p amio drip daughter updated at bedside Admission and Anticipated Discharge Date Admission Date: August 17, 2022 Subjective patient this am and early this afternoon with copious amounts of SVT more SVT than NSR during some hours she senses the SVT with palpitations she has some anxiety and dyspnea when she is in SVT daughter was at bedside during the visit she asked that we consider treating her anxiety she is supportive of her mother staying in the hospital overnight patient simply very anxious to get home to her she continues with mild episodes of dyspnea at times Review of Systems Review of Systems: gen - good appetite, good energy cv - palpitations but no chest pain; mild orthopnea at times pulm - dyspnea on occasion with her palpitations - urinary frequency but no dysuria GI - no nausea/emesis musculo - back pain today and hip pain /pelvic pain Physical Exam Physical Exam: gen - very pleasant, NAD 0 but quite anxious neck - no JVD; no edema or swelling mouth - MMM heart - tachy, s1 s2, no murmur lungs - minimal faint crackle with focal wheeze RUL; otherwise CTA b/l, no basilar rales abd - soft NT ND BS+ ext - no edema, pulses 2+ b/l; arms without edema psych - a/o x 3 - anxious Results & Data Results & Data ([facility]) Vital Signs (Past 12 Hours) Vital Signs Temp Pulse Pulse Resp BP BP Pulse Ox 08/27/22 19:42 36.3 C L 62 18 124/78 95 08/27/22 16:38 36.6 C 75 18 115/76 94 08/27/22 15:35 85 113/72 08/27/22 12:08 36.6 C 128 H 16 129/77 93 08/27/22 09:00 64 O2 Del Method 08/27/22 19:42 Room Air 08/27/22 16:38 08/27/22 15:35 08/27/22 12:08 Room Air 08/27/22 09:00 Laboratory Results Laboratory Results - last 24 hr 08/27/22 08/27/22 08/27/22 07:38 08:15 08:15 WBC 11.26 H RBC 4.42 Hgb 13.0 Hct 38.2 MCV 86.4 MCH 29.4 MCHC 34.0 RDW Std Deviation 42.3 RDW Coeff of Charlie 13.5 Plt Count 353 MPV 10.4 Immature Gran % (Auto) 0.4 Neut % (Auto) 65.7 Lymph % (Auto) 27.9 [place] % (Auto) 5.2 Eos % (Auto) 0.5 Baso % (Auto) 0.3 Neut # (Auto) 7.39 H Lymph # (Auto) 3.14 [place] # (Auto) 0.59 Eos # (Auto) 0.06 Baso # (Auto) 0.03 Immature Gran # (Auto) 0.05 H Sodium 132 L Potassium 3.5 Chloride 99 Carbon Dioxide 26 Anion Gap 7 BUN 23 Creatinine 0.68 Est Cr Clr Drug Dosing 70.4 Est GFR ( Amer) 96.4 Est GFR (Non-Af Amer) 83.2 BUN/Creatinine Ratio 33.8 H Glucose 115 H POC Glucose 84 Estimat Average Glucose Hemoglobin A1c Uric Acid 3.1 Calcium 9.3 Magnesium 1.7 Urine Color Urine Appearance Urine pH Ur Specific [place] Urine Protein Urine Glucose (UA) Urine Ketones Urine Blood Urine Nitrite Urine Bilirubin Urine Urobilinogen Ur Leukocyte Esterase Urine WBC (Auto) Urine RBC (Auto) U Hyaline Cast (Auto) U Epithel Cells (Auto) Urine Bacteria (Auto) 08/27/22 08/27/22 08/27/22 08:15 11:36 16:32 WBC RBC Hgb Hct MCV MCH MCHC RDW Std Deviation RDW Coeff of Charlie Plt Count MPV Immature Gran % (Auto) Neut % (Auto) Lymph % (Auto) [place] % (Auto) Eos % (Auto) Baso % (Auto) Neut # (Auto) Lymph # (Auto) [place] # (Auto) Eos # (Auto) Baso # (Auto) Immature Gran # (Auto) Sodium Potassium Chloride Carbon Dioxide Anion Gap BUN Creatinine Est Cr Clr Drug Dosing Est GFR ( Amer) Est GFR (Non-Af Amer) BUN/Creatinine Ratio Glucose POC Glucose 118 H 154 H Estimat Average Glucose 134 Hemoglobin A1c 6.3 H Uric Acid Calcium Magnesium Urine Color Urine Appearance Urine pH Ur Specific [place] Urine Protein Urine Glucose (UA) Urine Ketones Urine Blood Urine Nitrite Urine Bilirubin Urine Urobilinogen Ur Leukocyte Esterase Urine WBC (Auto) Urine RBC (Auto) U Hyaline Cast (Auto) U Epithel Cells (Auto) Urine Bacteria (Auto) 08/27/22 08/27/22 19:42 20:23 WBC RBC Hgb Hct MCV MCH MCHC RDW Std Deviation RDW Coeff of Charlie Plt Count MPV Immature Gran % (Auto) Neut % (Auto) Lymph % (Auto) [place] % (Auto) Eos % (Auto) Baso % (Auto) Neut # (Auto) Lymph # (Auto) [place] # (Auto) Eos # (Auto) Baso # (Auto) Immature Gran # (Auto) Sodium Potassium Chloride Carbon Dioxide Anion Gap BUN Creatinine Est Cr Clr Drug Dosing Est GFR ( Amer) Est GFR (Non-Af Amer) BUN/Creatinine Ratio Glucose POC Glucose 176 H Estimat Average Glucose Hemoglobin A1c Uric Acid Calcium Magnesium Urine Color Yellow Urine Appearance Clear Urine pH 5.5 Ur Specific [place] 1.020 Urine Protein Trace H Urine Glucose (UA) Negative Urine Ketones Negative Urine Blood Negative Urine Nitrite Negative Urine Bilirubin Negative Urine Urobilinogen Negative Ur Leukocyte Esterase Trace H Urine WBC (Auto) 1-5 Urine RBC (Auto) 0-4 U Hyaline Cast (Auto) 1-5 U Epithel Cells (Auto) >30 H Urine Bacteria (Auto) Negative PG Care Time/CCT Total # of Minutes Spent Total Time Spent with Patient: Total time spent is greater than 50% in coordination of care (as documented) at patient's floor/unit and/or counseling patient: Coding Level of Care Code 07452 Subseq Hosp Care Lvl 2 Diagnoses SVT (supraventricular tachycardia) I47.1 Small cell lung cancer C34.90 Pathologic lumbar vertebral fracture M84.48XA Lung collapse J98.19 Hyponatremia E87.1 Type 2 diabetes mellitus E11.9 Hyperlipidemia E78.5 Hypertension I10 DVT prophylaxis Z29.9
[2022-08-27] MEDS: allopurinoL 300 MG TAB PO SCH (20:54)
[2022-08-27] MEDS ORDERED: METOPROLOL TARTRATE 50 MG TAB PO SCH (21:00)
--- NOTE | 2022-08-27 21:39 | Communication Note ---
Date of Service: August 27, 2022 Notified by leah of sinus sean 50s, occasionally hitting 40s. Received PO metoprolol this evening. Pausing amio drip. Repleting K of 3.5 and Mg of 1.7 from this morning.
[2022-08-27] MEDS ORDERED: POTASSIUM CHLORIDE CRTAB 20 MEQ TABCR PO STA (21:41)
[2022-08-27] MEDS: MAGNESIUM SULFATE / D5W 1 GM/100 ML BAG IV SCH (22:16)
[2022-08-27] MEDS: POTASSIUM CHLORIDE / WTR 10 MEQ/100 ML PLCT IV SCH ×2 (22:17→23:19)
[2022-08-28] MEDS: MAGNESIUM SULFATE / D5W 1 GM/100 ML BAG IV SCH (00:34)
[2022-08-28 07:15] LABS: BUN Creatinine Ratio 32.3 (10-20); Calcium 8.9 mg/dl (8.5-10.1); Creatinine Clr Calc Pharmacy 74.7 ml/min; Est GFR (African American) 97.9 ml/min; Est GFR (Non-African American) 84.4 ml/min; Magnesium 2.2 mg/dl (1.7-2.4); Potassium 4.3 mmol/L (3.5-5.1)
[2022-08-28] MEDS: PANTOprazole 40 MG TAB PO SCH (08:24)
[2022-08-28] MEDS: busPIRone 5 MG TAB PO SCH ×2 (08:24→14:27)
[2022-08-28] MEDS: ADVANCED PROBIOTIC 1250 MG CAPSULE PO SCH (08:24)
[2022-08-28] MEDS: DICLOFENAC SOD 1% GEL 100 GM TUBE EXT SCH (08:25)
[2022-08-28] MEDS: INSULIN ASPART PER UNIT SC SCH ×2 (08:37→12:42)
[2022-08-28] MEDS ORDERED: METOPROLOL TARTRATE 25 MG TAB PO SCH (09:00)
[2022-08-28] MEDS ORDERED: SODIUM CHLORIDE 1 GM TABLET PO SCH (09:00)
[2022-08-28] MEDS ORDERED: cefTRIAXone SODIUM 2,000 MG in DEXTROSE 5% 50 ML IV SCH (09:15)
--- NOTE | 2022-08-28 09:27 | Cardiology Progress Note ---
Date of Service August 28, 2022 Assessment & Plan (1) SVT (supraventricular tachycardia): (2) Metastatic cancer: Plan Patient responded well to intravenous amiodarone infusion, rhythm sinus without recurrent SVT. Since she did receive further amiodarone loading intravenously, she will not need TID dosing but could be discharged on amiodarone 200 mg PO BID. Would discontinue metoprolol since she had periods of relative bradycardia. Okay for discharge. I will arrange for follow-up with Dr. Louis in 3 to 4 weeks. Admission and Anticipated Discharge Date Admission Date: August 17, 2022 Subjective Patient is doing well, no cardiopulmonary complaints, anxious to go home. She denies any chest pain, dyspnea, or subjective palpitations. Telemetry showed marked improvement with resolution of her recurrent SVT. Physical Exam Physical Exam: No distress. BP normotensive. Pulse 58 bpm and regular. Skin: no ecchymoses or generalized lesions. HEENT: unremarkable. Neck: no JVD or carotid bruits. Lungs: clear bilaterally. Cardiac: regular rhythm, no obvious murmur or gallop. Abdomen: benign. Extremities: no edema, pulses intact. Neurologic: normal affect and conversation, nonfocal. Results & Data ([facility]) Vital Signs (Past 12 Hours) Vital Signs Temp Pulse Pulse Resp BP Pulse Ox O2 Del Method 08/28/22 07:32 97.3 F L 58 L 20 141/70 H 95 Room Air 08/28/22 03:07 97.3 F L 53 L 18 143/79 H 97 Room Air 08/28/22 01:05 50 L 08/27/22 23:14 97.5 F L 54 L 18 132/91 96 Room Air PG Care Time/CCT Total # of Minutes Spent Total Time Spent with Patient: Total time spent is greater than 50% in coordination of care (as documented) at patient's floor/unit and/or counseling patient: Coding Level of Care Code 50766 Subseq Hosp Care Lvl 3 Diagnoses SVT (supraventricular tachycardia) I47.1 Metastatic cancer C79.9
[2022-08-28] MEDS: DOCUSATE SODIUM/SENNA 50/8.6MG TAB PO SCH (09:28)
[2022-08-28] MEDS: LANTUS PER UNIT CHARGE SQ SCH (09:32)
[2022-08-28] MEDS: MoRPHine SULFATE 2 MG/ML CARP IV PRN (10:41)
[2022-08-28] MEDS: POLYETHYLENE (MIRALAX) 17 GM PACK PO SCH (11:17)
[2022-08-28] MEDS: ENOXAPARIN INJ 40 MG/0.4 ML SYR SQ SCH (11:17)
--- NOTE | 2022-08-28 13:56 | Discharge Summary ---
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 Miramontes's office for continued workup of hyponatremia and new cancer. Per the clinic note from today, the patient initially presented to the clinic for acute low back pain. It had been ongoing for approximately 3 weeks. She has associated pain with changing positions, the pain radiates into her left femur/lateral hip, no recent trauma, recent [address] Miramontes ordered a CBC, CMP, UA, XR L hip/pelvis, and CT of the abd/pelvis w & wo contrast at their visit today. The workup from today has revealed new hyponatremia initially at 123, improved to 126 in ED labs, calcium of 10.2, alk phos of 105. XR of the left hip/pelvis was negative for acute findings. Unfortunately, CT of the abdomen/pelvis revealed "Numerous rim-enhancing hypodense lesions in the liver are concerning for metastatic disease in this pat ient status post hemicolectomy. Correlation with prior imaging is recommended. If further evaluation is desired, tissue sampling versus MRI liver mass protocol can be performed. No evidence of diverticulitis. Nonobstructive nephrolithiasis is seen. There is nodularity of the adrenal glands bilaterally, nonspecific. Thickening of the gastric wall may be secondary to underdistention, clinical correlation for gastritis is recommended. Addendum shows "There is a lytic lesion arising from the right aspect of the L5 vertebral body with an associated soft tissue mass and pathologic fracture.". Prior to admission the patient was given 4 mg IV morphine and 4 mg IV zofran, and 1L NSS bolus. At the time of the exam the patient was resting comfortably in bed in no acute distress with her and Son sitting bedside. She states that she began experiencing low back pain which radiates in to her left hip/thigh. She states that this began approximately one month ago and continued to get worse. S he denies saddle anesthesia, loss of bowel or bladder function, and numbness/tingling in her buttocks, groin, and legs. She uses a cane to ambulate but ambulation has become more difficult due to the pain. She noted an approximate 15 lb weight loss over the past month. She states that she has lost her appetite and does not eat much solid food over the past month, she has been trying to drink lost of water. She notes that she has been urinating less frequently recently and thought that was odd as she normally urinates every 2 hours due to her DM. She denies dysuria and hematuria and feels as though she is able to empty her bladder when she goes. Her normal bowel habits are having a normal bowel movement then followed by a watery BM approximately an hour after, this has been her norm since her previous hemicolectomy. She has not smoked or had a drink of alcohol in the past 7 years. She denies recent fevers, chills, headache, changes in vision, hearing, taste, and smell, chest pain, SOB, abdominal pain, nausea, vomiting, melena, bloody bowel movements and recent falls. I spoke to her about the recent CT findings being concerning for malignancy, but we need to continue her workup to determine the primary source, she acknowledged undertsanding. I spoke to her regarding code status, she would like to be a Full Code at this time. If she cannot make decisions for herself then her Daughter/POA (Ludmila Elizabeth [phone]) would make decisions for her. Principal Diagnosis 1. 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 Back pain due to lumbar spine metastatic disease with resulting pathological fractures of L4/L5 3. SVT (supraventricular tachycardia) 4. 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 UTI 6. Type 2 diabetes 7. 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 Discharge Exam gen - NAD neck - no JVD; no edema or swelling mouth - MMM heart - RRR, s1 s2, no murmur lungs - minimal faint crackle with focal wheeze RUL; otherwise CTA b/l, no basilar rales abd - soft NT ND BS+ ext - no edema, pulses 2+ b/l; arms without edema psych - a/o x 3 - anxious skin - aport site L upper chest clean, well-healed, incision intact Discharge Data Allergies Allergy/AdvReac Type Severity Reaction Status Date / Time No Known Allergies Allergy Verified 08/17/22 07:42 Consultations Oncology - Dr Jennyfer Hogan Radiation Oncology - Ana Romero MD Orthopedic Surgery - Galdino Stevenson DO Palliative Care - Ca Shaw DNP Pulmonology - Galdino Qiu MD [facility] Cardiology [facility] General Surgery - Edwin Roa DO Physical Therapy Procedures Performed Operation Date: 08/24/22 14:10 Actual Procedures Aport Placement in left internal jugular(Left) - Edwin Roa DO, FACS Ordered Studies Chest CT 08/18/22 07:22 CT OF THE CHEST WITH IV CONTRAST CLINICAL HISTORY: Cancer staging. COMPARISON STUDY: Chest radiograph May 20, 2015. TECHNIQUE: Following IV administration of 94 mL of Optiray, helical axial images of the chest were obtained. Sagittal and coronal reconstructions were viewed as well as maximal intensity projections on an independent 3-D workstation. Automated exposure control was utilized for the study. A dose lowering technique was utilized adhering to the principles of ALARA. CT DOSE: 439.68 mGy.cm FINDINGS: There is near-complete right upper lobe collapse. This is due to a central obstructing right upper lobe mass with mediastinal involvement. This mass is difficult to measure given adjacent collapsed lung. The mass measures approximately 6 x 5.8 cm and invades the SVC with moderate narrowing. There is associated pathologic mediastinal and right hilar adenopathy. Index right paratracheal lymph node measures 2.5 x 1.7 cm. Index subcarinal node measures 2.2 x 1.6 cm. Right hilar adenopathy is partially obscured. The mass results in occlusion of the right upper lobe bronchus. There is moderate narrowing of the middle lobe bronchi as well due to adenopathy. There is no pneumothorax. A trace right pleural effusion is present. Moderate emphysema is noted. There is dilatation of the central pulmonary arteries. Extensive mitral annular calcification is present. There is no pericardial effusion. No central pulmonary emboli are identified. Remainder of the pulmonary arteries are suboptimally opacified. There is a possible lytic lesion measuring 8 mm within the right posterior aspect of the T12 vertebral body. Numerous hepatic metastases measure up to 4.7 cm. A 1.5 cm left adrenal nodule is noted. Small right adrenal nodule is present. IMPRESSION: 1. 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 Mediastinal involvement which results in moderate SVC narrowing due to invasion. Pulmonary consultation is recommended. 2. Associated jolene, hepatic, adrenal and skeletal metastases, as detailed above. 3. Emphysema. 4. Trace right pleural effusion. ACT 112: Positive. There are findings on this exam that require communication between the performing entity and the patient following Patient Test Result Information Act ([place] Act 112) guidelines. Electronically signed by: Elan Dotson M.D. 08/18/2022 3:29 PM Lumbar Spine MRI 08/18/22 12:42 MRI OF THE LUMBAR SPINE WITH AND WITHOUT CONTRAST CLINICAL HISTORY: Evaluate L5 pathologic fx. COMPARISON STUDY: CT of the abdomen and pelvis August 17, 2022. TECHNIQUE: Utilizing a 1.5 Elisa magnet and dedicated coil, multiplanar, multiecho imaging of the lumbar spine was performed before and after uneventful IV administration of 9 mL of Gadavist. FINDINGS: For purposes of numbering on this exam, the L5-S1 disc space is assigned to axial image 27 of 30. There is 4 mm of anterolisthesis of L4 and L5. Pvc Monitor images demonstrate multiple hepatic lesions consistent with metastases. Extensive multifocal marrow replacement is noted within the lower thoracic spi ne, lumbar spine, sacrum and visualized portions of the pelvis. The conus terminates at the mid L1 level. There is possible minimal epidural extension of tumor posterior to the L4 vertebral body. Enhancement posterior to the L5 vertebral body probably reflects prominent epidural venous plexus. Postcontrast images are compromised by motion artifact. Mild loss of height of the superior endplates of L4 and L5 represent pathologic fractures. No additional pathologic fractures are identified within the lumbar spine. Paravertebral soft tissues are unremarkable. L1-2: The central canal and neural foramen are patent. There is mild facet arthrosis. L2-3: There is moderate facet arthrosis. There is minimal disc bulge. There is mild narrowing of the central canal and lateral recesses. The neural foramen are patent. L3-4: There is severe facet arthrosis. There is ligamentous hypertrophy. Findings result in mild to moderate central canal stenosis. Neural foramen are patent. L4-5: Anterolisthesis is noted with uncovering of the disc. There is severe facet arthrosis with ligamentous hypertrophy. Findings result in severe narrowing of the central canal. Patent AP diameter canal is 3 mm. There is also moderate both lateral recesses and the bilateral neural foramen. L5-S1: Moderate facet arthrosis is present. Central canal and neural foramen are patent. IMPRESSION: 1. Extensive multifocal marrow replacement consistent with metastatic disease. L4 and L5 pathologic fractures with mild loss of height. Possible minimal epidural extension of tumor at the L4 and L5 levels, as described above. Post contrast images compromised by motion artifact. No large epidural component. 2. Severe central canal stenosis at L4-L5 due to facet arthrosis, ligamentous hypertrophy and anterolisthesis with uncovering of the disc. Mild to moderate central canal stenosis at L3-L4. 3. Multilevel neural femoral stenosis, as above. ACT 112: Negative or not required by law. Electronically signed by: Elan Dotson M.D. 08/19/2022 8:09 AM Cervical Spine MRI 08/18/22 12:57 CERVICAL SPINE MRI WITH AND WITHOUT CONTRAST HISTORY: Right upper lobe mass. neck pain; eval for mets; L5 pathologic fx TECHNIQUE: Multiplanar multisequence MRI of the cervical spine was performed both before and after the use of intravenous contrast. COMPARISON STUDY: Chest CT 08/18/2022. FINDINGS: There is mild motion artifact. Partial visualization of the patient's known right upper lobe mass. The visualized posterior fossa is unremarkable. The cervical spinal cord demonstrates a normal signal intensity. The prevertebral soft tissues and C1-C2 interval are intact. Moderate disc space narrowing at C4- C5 and C5-C6. Broad-based posterior disc bulges with small focal central disc protrusions at C4-C5 and C5-C6 resulting in [id number] central canal narrowing. There is also bilateral severe neural foraminal narrowing at these levels. There is mild central canal narrowing at C3-C4 and C6-C7 due to the disc bulges. Moderate facet degenerative changes throughout the cervical spine. No fracture or subluxation. Multiple scattered T2 hyperintense, T1 hypointense enhancing lesions seen throughout the majority of the cervical spine. This is most pronounced at the C2 and C3 vertebral bodies. No epidural soft tissue component or pathologic fracture identified at this time. IMPRESSION: 1. Multiple scattered metastatic lesions seen throughout the cervical spine. No pathologic fractures or epidural extension at this time. 2. Partial visualization of the patient's known right upper lobe mass. ACT 112: Negative or not required by law. Electronically signed by: Yury David M.D. 08/19/2022 9:10 AM Thoracic Spine MRI 08/18/22 12:57 THORACIC SPINE MRI WITH AND WITHOUT CONTRAST HISTORY: Known right upper lobe mass. eval for mets; L5 pathologic fx TECHNIQUE: Multiplanar multisequence MRI of the thoracic spine was performed both before and after the intravenous administration of contrast. COMPARISON: Chest CT 08/18/2022. FINDINGS: Partial visualization of the patient's known right upper lobe mass and hepatic lesions. There are multiple scattered T2 hyperintense, T1 hypointense enhancing lesions seen throughout the thoracic spine consistent with metastatic disease. No pathologic fractures identified. No epidural soft tissue extension. This spaces are preserved. The thoracic spinal cord is normal and course, caliber, and signal intensity. No significant central canal or neural foraminal narrowing. Suboptimal evaluation of the postcontrast sequences due to the motion artifact. IMPRESSION: 1. Multiple scattered metastatic lesions seen throughout the thoracic spine. No pathologic fractures or epidural involvement at this time. 2. Partial visualization of the patient's known right upper lobe mass and hepatic lesions. ACT 112: Negative or not required by law. Electronically signed by: Yury David M.D. 08/19/2022 9:13 AM Liver Biopsy Ultrasound 08/19/22 08:21 ULTRASOUND-GUIDED CORE NEEDLE BIOPSY OF THE LEFT HEPATIC LESION HISTORY:. liver mass COMPARISON: Abdomen and pelvis CT 08/17/2022. PROCEDURE: Written informed consent was obtained. The neck was prepped and draped in the usual sterile fashion. 1% lidocaine was used for local anesthesia. A single pass using an 18 x 9 cm biopsy device was made through a left hepatic lobe lesion under ultrasound guidance. Specimens were sent to pathology for diagnosis. The patient tolerated the procedure well. There were no immediate complications. IMPRESSION: Successful ultrasound-guided core needle biopsy of the left hepatic lobe lesion. ACT 112: Negative or not required by law. Electronically signed by: Yury David M.D. 08/19/2022 3:17 PM Brain MRI 08/23/22 12:53 MRI OF THE BRAIN WITHOUT AND WITH IV CONTRAST CLINICAL HISTORY: Small cell lung cancer. Evaluate for metastatic disease. COMPARISON STUDY: No previous studies for comparison. TECHNIQUE: Utilizing a 1.5 Elisa magnet and dedicated coil, multiplanar, multiecho imaging of the brain was performed pre and postcontrast administration. IV administration of Gadavist contrast was uneventful. Thin cut T1 post contrast imaging was performed. FINDINGS: There are no foci of restricted diffusion to suggest acute infarct. No acute intracranial hemorrhage, midline shift or mass effect is present. Ventricular system is unremarkable. Basal cisterns are patent. There are no extra-axial collections. Flow-voids for the major intracranial vessels are present. White matter T2 hyperintense foci suggest small vessel disease. Note is made of multifocal marrow replacement within the calvarium and visualized portions of the cervical spine. There is dural thickening and enhancement associated with a right parietal lesion. Note is made of a 5 mm intra-axial enhancing lesion within the left cerebellar hemisphere. This has mild associated vasogenic edema. No additional parenchymal lesions are identified. IMPRESSION: 1. 5 mm enhancing lesion within left cerebellar hemisphere suggestive of a metastasis. Mild associated vasogenic edema. 2. Numerous calvarial and upper cervical spine metastases. Dural thickening and enhancement associated with a right parietal calvarial lesion may reflect mild dural extension of tumor. ACT 112: Negative or not required by law. Electronically signed by: Elan Dotson M.D. 08/23/2022 6:22 PM Chest X-Ray 08/24/22 13:47 SINGLE VIEW CHEST CLINICAL HISTORY: Infusion port placement FINDINGS: An AP, portable, upright chest radiograph is compared to study dated 05/20/2015 and correlated with chest CT dated 08/18/2022. A left internal jugular central venous infusion port is new from previous. The tip of the catheter projects over the SVC. The heart is enlarged noting atherosclerotic calcification of the thoracic aorta. The pulmonary vasculature is noncongested. The mitral annulus is densely calcified. Emphysema and chronic interstitial thickening is similar to previous. A large mass lesion and atelectasis of the right upper lung is similar to previous. Left lung is clear noting basilar scarring/atelectasis. No large pleural effusion or pneumothorax is seen. The bony thorax is grossly intact. IMPRESSION: 1. A left internal jugular central venous infusion port has been placed as above. No pneumothorax is seen post procedure. 2. Cardiomegaly and emphysema. 3. A large mass lesion and atelectasis of the right upper lung is similar to the recent chest CT. ACT 112: Negative or not required by law. Electronically signed by: Yonatan Cooper M.D. 08/24/2022 2:08 PM Hospital Course (1) Small cell lung cancer: Stage 4 - newly diagnosed via liver biopsy. Primary site - RUL. Metastatic to the brain (cerebellum), liver, adrenal glands, lymph nodes, and spine (multiple locations in c-spine, t-spine, and l-spine). Was seen in consult by oncology and radiation oncology. Due to concern for impending SVC obstruction she underwent her first round of chemotherapy during her inpatient stay. s/p carboplatin/etoposide/dexamethasone 08/25/22. s/p etoposide 08/26. s/p etoposide 08/27. She had Mediport insertion by surgery 08/24/22 without incident. She had CT simulation by radiation oncology for upcoming radiation to her lumbar spine, to be completed as outpatient. She had mild-moderate SIADH due to her advanced cancer with range of 123 to 134 while here with d/c level of 130. Salt supplementation was initiated. She was initiated on allopurinol prophylaxis. She will follow-up with oncology, Dr Sampson Hogan, as well as radiation oncology, Dr Ana Romero, shortly after discharge for ongoing care. (2) SVT (supraventricular tachycardia): Patient had frequent episodes of SVT. Despite beta blockers she continued with copious runs of symptomatic SVT. She was seen by [facility] for assistance with this issue. Ultimately it was decided to place her on amiodarone to prevent the arrhythmia. She received amiodarone drip with bolus and ultimately transitioned to amiodarone by mouth 200mg BID. Metoprolol was discontinued. The frequency of the SVT improved significantly with the amiodarone. At discharge again she will take amiodarone 200mg BID. She should f/u with Dr Krzysztof Louis from [facility] post-discharge. (3) Pathologic lumbar vertebral fracture: L4 and L5 pathologic fractures with mild loss of height. Possible minimal epidural extension of tumor at the L4 and L5 levels. Also severe central canal stenosis at L4-L5 due to facet arthrosis, ligamentous hypertrophy and anterolisthesis with uncovering of the disc. Mild to moderate central canal stenosis at L3-L4. Multiple metastatic lesions were also seen throughout the cervical and thoracic spine on imaging. The lumbar back pain was an area of severe pain for her. Radiation oncology was consulted and outpatient radiation to the lumbar spine will be completed in the near-future as outpatient; CT simulation was completed during the hospitalization. Palliative care was consulted and prescribed oral morphine prn. Prescription for such was given at discharge. 25-OH vit D level earlier this year was wnl (level of 72). Despite the above she was ambulating and had a nonfocal neurological exam. Of note - she was seen by ortho-spine Dr Galdino Stevenson. Nothing surgical needed per his consultation. (4) Lung collapse: RUL, 2nd to SCLC. O2 sats wnl. Mild focal wheezing/rhonchi due to bronchial compression was auscultated in this region. Can use xopenex HFA prn if desired. (5) Hyponatremia: SIADH from cancer. Urine osm > serum osm, urine Na high. Patient euvolemic. Fluid restriction to 1500cc/day. Sodium 130 at discharge. Lowest Na level since admission - 123. She was prescribed sodium chloride 1gm daily in addition to fluid restriction. She should have a f/u serum sodium shortly after discharge for stability. (6) Type 2 diabetes mellitus: resumed metformin at d/c - 1000mg BID. HbA1c 6.3% during the visit. (7) Hyperlipidemia: Statin agent was stopped. (8) Hypertension: controlled off her usual lisinopril; this was discontinued at discharge. (9) Superior vena cava syndrome: Impending. Thus, her first round of chemotherapy was given while hospitalized. (10) UTI (urinary tract infection): 2nd e.coli. Received IV rocephin x 1, with keflex 500mg PO BID x 6 days at discharge. Final urine culture sensitivities were pending at time of discharge and antibiotic may need changing depending on the final culture results. (11) Anxiety: buspar 5mg prn prescribed at discharge for such. Plan passed PT eval prior to discharge family extensively updated prior to discharge Total Time Total Time Spent Total Time Spent (In Minutes): 60 Discharge Plan Discharge Items Patient Disposition: Home - Self-Care Reason For Visit: HYPONATREMIA Discharge Diagnosis: 1. Lung cancer with metastases to the lumbar spine, cerebellum, and liver 2. Back pain due to cancer in the lumbar spine with resulting fracture 3. SVT (supraventricular tachycardia) 4. Hyponatremia (low sodium) - due to the lung cancer 5. UTI (urinary tract infection) 6. Type 2 diabetes Activity: As commented below Activity Comment: No strenuous activities; light walking/light activity only Lifting: No more than 10 pounds Driving/Machine Use: No driving due to morphine use Non-emergency contact: Primary Care Provider, Specialist and Oncologist Call non-emergency contact if: you have any medication questions, your symptoms worsen, your pain is not controlled, your pain is worsening, your pain is concerning for you and you have a fever Follow-up/Referrals: Delbert Miramontes MD [Primary Care Provider] - Lionel Louis MD [Physician] - 09/14/22 1:00 pm (10-14 days - for SVT ) Ana Romero MD [Physician] - (please contact Dr Romero's office to coordinate timing of future radiation treatments) Sampson Hogan MD [Physician] - (please contact Dr Hogan's office to schedule follow-up with him for THIS WEEK) Ca Shaw DNP [Nurse Practitioner] - (you may follow-up with Dr Shaw at your convenience for any assistance with your pain medication or to discuss palliative care ) Diet: Carb Consistent or DM2 Fluids: 1500ml (6 cups) Addtl Attending Provider Instructions: Mrs Elizabeth, You were hospitalized with low sodium levels (hyponatremia), severe low back pain, loss of appetite/weight loss, and discovery of lesions in the liver. A biopsy of one of the liver lesions confirmed the diagnosis of lung cancer. It was also discovered that the severe back pain was coming from cancer that had entered the spine. This then led to a fracture in the lumbar spine. During your stay you underwent additional testing with CT scans and MRIs. We determined that the low sodium levels were due to the cancer itself. Your sodium levels improved with restricting total fluid intake At home you will need to take a salt tablet and restrict your total fluid intake to no more than 1500cc in a 24 hour period to keep your sodium levels in an acceptable range. Additionally, general surgery placed a port in your chest which will allow ease of chemotherapy administration, blood draws, etc. Dr Sampson Hogan - oncology - advised that you receive your first cycle of chemotherapy in the hospital. You did indeed receive 3 days of such and you did well during that time. Further, you had troubles with a heart rhythm called "SVT." This abnormal heart rhythm is seen in people of all ages including children. It originates from the top portion of your heart. It was difficult to control, and thus we started you on amiodarone for the rhythm. You received IV and oral amiodarone while here; it has been very effective. Finally, it does appear that you have a urinary tract infection. We gave you a 24-hour IV antibiotic on 08/29/22 which will be followed by oral antibiotics at home. Recommendations - 1. For pain - * take morphine tablets, 15mg every 4 hours as needed * know that the morphine may make you feel confused or sleepy * it will also cause constipation * do not drink alcohol when taking morphine * do not drive a car when taking morphine * you can take [id number] tylenol, 1000mg every 6 hours as needed, up to 3000mg in 24 hours -- if needed or desired 2. For SVT - * take amiodarone 200mg twice daily * take your first dose tonight at bedtime * we sent a prescription for metoprolol tartrate to your pharmacy and I believe your family has picked this up -- PLEASE DO NOT TAKE THIS MEDICATION 3. To keep you sodium levels in acceptable range please do the following - * take a salt tablet 1 gram daily * restrict your total fluid intake to no more than 1500cc in a 24 hour period * no need to restrict your salt intake at home 4. For anxiety - * buspirone 5mg every 8 hours as needed for anxiety 5. For urinary tract infection - * cephalexin 500mg twice daily x 6 days; first dose on Tuesday AM, 08/29/22 6. Cancer-related medication - * allopurinol 300mg at bedtime 7. To keep your bowels moving while you are taking morphine you will likely need to take a combination of the following [id number] constipation medic ations - * miralax once or twice daily * senakot daily * shoot for a soft BM every 2-3 days 8. For cough, wheezing, or shortness of breath you can use XOPENEX inhaler - use with plastic spacer device - * Xopenex 2 puffs via spacer every 6 hours as needed for the above symptoms * see handout on how to use a spacer device 9. Please STOP the following medications - * lisinopril * simvastatin * and DO NOT TAKE the metoprolol that was picked up at [facility] Follow-up - see separate section Most importantly Dr Hogan's office should be contacting you to arrange your first clinic appointment at the [facility] - likely this week Return to [facility] if - * you have fever over 100 degrees * you have worsening shortness of breath or chest pains * you have severe constipation or severe diarrhea * you have uncontrolled pain * any other concerns It was our pleasure to care for you at [facility]! Please enjoy your Thanksgiving holiday later this month, Dr Huerta Pending Studies at Discharge: No Stand-Alone Forms: My [facility], Smoking Cessation Medications and DC Order Prescriptions: New amiodarone 200 mg Tablet 200 mg PO BID Qty: 60 2RF allopurinol 300 mg Tablet 300 mg PO HS Qty: 30 5RF morphine 15 mg Tablet 15 mg PO Q4H PRN (Reason: pain) Qty: 30 0RF buspirone 5 mg tablet 5 mg PO TID PRN (Reason: anxiety) Qty: 30 0RF sodium chloride 1 gram tablet 1,000 mg PO DAILY Qty: 30 2RF levalbuterol tartrate [Xopenex HFA] 45 mcg/actuation Hfa Aerosol Inhaler 2 puff inhalation Q6H PRN (Reason: cough/wheeze/shortness of breath) Qty: 1 0RF Rx Instructions: use with spacer device Continued omeprazole 20 mg capsule,delayed release(DR/EC) 20 mg PO QAM Qty: 90 3RF (DME) OneTouch Verio test strips Strip See Rx Instructions .ROUTE .MEDSUPPLY Qty: 100 3RF Rx Instructions: tests one time daily (DME) lancets [OneTouch Delica Lancets] 33 gauge misc See Rx Instructions .ROUTE .MEDSUPPLY Qty: 100 3RF Rx Instructions: use to test once daily cranberry extract 200 mg capsule 400 mg PO DAILY Rx Instructions: administer with a meal acetaminophen [Tylenol Extra Strength] 500 mg tablet 1,000 mg PO QID PRN (Reason: Fever Or Pain) Culturelle 10 billion cell capsule 1 cap PO QAM metformin 500 mg tablet extended release 24 hr 1,000 mg PO BID Rx Instructions: TAKE 2 TABLETS BY MOUTH TWICE DAILY Discontinued simvastatin [Zocor] 40 mg tablet 40 mg PO QPM Qty: 90 3RF lisinopril 40 mg tablet 40 mg PO DAILY Rx Instructions: TAKE 1 TABLET BY MOUTH ONCE DAILY Discharge Orders: Discharge Order (Routine); Ordered 08/28/22 Ordered By: Franklyn Huerta Admission Data Admit Date/Time: 08/17/22 19:52 Attending Provider: Franklyn Huerta Admit Provider: Alyson Elkins Primary Care Provider: Delbert Miramontes Other Providers: Kate Barroso ; Jaycee Franco ; Sampson Hogan ; Kaylen Le ; Po Madden ; Chandra Quigley ; Hari Jackson ; Patricia Benavides ; Maria T Miranda ; Ana Romero ; Thai Tello ; Cleveland Stevenson ; Stefanie Goel ; [place] Qiu ; German Adler ; Gelacio Duff ; Sameer Ward Jr ; Edwin Roa ; Austen Lloyd ; Alexandre Malcolm Other Interventions: Discharge Summary Assessment (RN) Last Done: 08/28/22 14:02 Coding Level of Care Code D/C DAY MANAGEMENT >30 MINS Diagnoses Small cell lung cancer C34.90 SVT (supraventricular tachycardia) I47.1 Pathologic lumbar vertebral fracture M84.48XA Lung collapse J98.19 Hyponatremia E87.1 Type 2 diabetes mellitus E11.9 Hyperlipidemia E78.5 Hypertension I10 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
[2022-08-28] MEDS ORDERED: LEVALBUTEROL TARTRATE 15 GM HFA.AER.AD INH SCH ×2 (14:45→14:48)
== END 2022-08-28 15:36 | disposition home or self-care (01) | DRG 181 ==
LOC: ED 15:29 → 3W 19:52 → SUATTDRO 19:52 → 3W 21:31 → 2S 08-22 04:47

== ENCOUNTER 2022-09-30 06:23 | Inpatient (IN) ==
[2022-09-30] MEDS ORDERED: SODIUM CHLORIDE 0.9% 500 ML IV SCH (06:45)
[2022-09-30] MEDS ORDERED: SODIUM CHLORIDE 0.9% 1000ML 500 ML IV ONE (06:53)
[2022-09-30] MEDS ORDERED: CEFEPIME 2,000 MG/20 ML VIAL IV STA (06:53)
--- NOTE | 2022-09-30 07:08 | Emergency Department Note ---
Impression & Plan Weakness, Dehydration, Acute UTI, Hypomagnesemia, Hypokalemia, Elevated troponin ED Provider Note NAME: WINNIE THOMSON AGE: 77 SEX: F : 1945 ARRIVES VIA: Ambulance INFORMANT: [Patient][ems, nursing] ED PROVIDER(S): [Yonatan Najera MD] CHIEF COMPLAINT: Weakness HISTORY OF PRESENT ILLNESS: The patient is a 77-year-old female with stage IV cancer. She has mets just about everywhere including the brain and spine, she has pathologic spinal fractures. Patient has noticed some sneezing for a few days. She was diagnosed with a UTI and did start antibiotics yesterday. This morning, the patient stood and was too weak to keep herself up, her legs sort of gave out and she slowly went to the floor. She did not injure herself or lose her consciousness. No real no chest pain. The patient does live alone, her is her primary caregiver currently. The patient complains of all over body pain but this is chronic because of her cancer. She is on narcotics on a regular basis. Of note, there is a urine culture on our system are from 28 September, 2 days ago . This shows E. coli which does show some resistance. It is sensitive to cefepime. Looking at the patient's recent medication fills, it appears she is on Macrobid which also shows sensitivity on the urine culture. REVIEW OF SYSTEMS: See HPI for pertinent positives and negatives. A total of ten systems were reviewed and were otherwise negative. PMHx/PSHx: See Below SOCIAL HISTORY: See Below. PHYSICAL EXAM: GENERAL: Patient is in no acute distress. HEENT: No acute trauma, normocephalic atraumatic, mucous membranes dry, no nasal congestion, no scleral icterus. NECK: No stridor, no adenopathy, no meningismus, trachea is midline. LUNGS: Wheezes heard bilaterally, few crackles heard. Breath sounds equal, no respiratory distress. HEART: Subtle systolic murmur, mildly tachycardic, regular rhythm. ABDOMEN: Soft, mildly diffusely tender, no peritonitis. EXTREMITIES: No cyanosis, moderate bilateral pedal edema, full range of motion of all the joints without pain or difficulty, no signs for acute trauma. NEUROLOGIC: Oriented x 3, no acute motor or sensory deficits, no focal weakness. SKIN: No rash, no jaundice, no diaphoresis. Pale. DIFFERENTIAL DIAGNOSIS: Infection, dehydration, UTI, COVID-19, RSV, influenza, metabolic abnormality, hypo/hyperglycemia, electrolyte disturbance, anemia, hypoxia, cardiac sources, intracerebral event, toxicologic issues, stroke, TIA, as well as other pathologies. EMERGENCY DEPARTMENT COURSE/PROCEDURES: ECG: Indication was tachycardia and weakness. The ECG shows a sinus rhythm with some sinus arrhythmia. The rate is 95. There is an old septal infarct and some diffuse ST flattening. There is no ST elevation, no PVCs. QTC is 459. Repeat ECG: There appears to be in SVT versus a 2-1 atrial flutter. The rate is 142. There is diffuse nonspecific ST change with some ST depression seen laterally. There is no ST elevation. No PVCs. The QTc is 464. Compared to the ECG from earlier today, the rapid rate is new. Continuous Cardiac Monitoring: An order was placed for continuous cardiac monitoring. The monitor shows a rate of 115 with sinus tachycardia. Critical Care Note: I have personally spent 41 minutes of critical care time in the direct management of this patient. This includes bedside care, interpretation of diagnostic studies, and testing, discussion with consultants, patient, and family members, and other required patient management activities. This 41 minutes is in excess of all separately billable procedures. MEDICAL DECISION MAKING: There is no leukocytosis or concerning anemia. Platelet count somewhat low 116. Renal panel testing shows some dehydration with an elevation to the BUN and creatinine. Lactic acid level was not elevated making severe sepsis less likely. Magnesium and potassium were both low. No concerning liver enzyme elevation. The patient appeared to be in a euthyroid state. ECG initially showed a sinus rhythm although, a repeat EKG showed potential SVT versus atrial flutter. The patient's rhythm changes from sinus to this tachycardia spontaneously. Cardiac troponin is slightly elevated. This elevation could be from cardiac strain or potentially mismatch. Urinalysis does not show infection. COVID, RSV and influenza test were negative. Stool C. difficile test was negative. Stool cultures are pending. Chest x-ray shows some changes to the lungs but, things appear improved compared to a recent x-ray. The patient was given IV saline, IV lactated Ringer's. She received IV potassium and IV magnesium. She was given IV cefepime. She was given a dose of oral amiodarone. She does take amiodarone twice a day. The amiodarone was given to hopefully help with her rhythm issue. I did speak with the patient, I do think a hospital stay is warranted. She has a UTI, she is dehydrated. Her magnesium and potassium are low. Her troponin is elevated. She is weak and is in no condition to be discharged home. I spoke with case management, the on-call hospitalist was consulted. Past Med/Surg History Medical History Alcohol intoxication Blood loss Cancer related pain History of cigarette smoking Hyperlipidemia Hypertension Hyponatremia Hypotension Liver lesion Metastatic cancer Widespread Stage IV Met Ca likely lung primary, bx needed, 08/19/22 Open tibial fracture Palliative care encounter Pathologic lumbar vertebral fracture Sensorineural hearing loss of both ears Small cell lung cancer SVT (supraventricular tachycardia) Type 2 diabetes mellitus Surgical History (Updated 08/25/22 @ 13:23 by Zeina Anne RN) History of ankle surgery broken ankle-2014 at [facility] History of appendectomy History of hemicolectomy January 2016--[facility] History of tonsillectomy History of tubal ligation Port-A-Cath in place (08/24/22) Aport Placement(Left) - Edwin Roa DO, FACS Family History Sister Primary adenocarcinoma of vagina Father Asthma Hypertension Macular degeneration Pulmonary embolism Mother Emphysema lung Brother Macular degeneration Denies family history of Ovarian cancer Prostate cancer Myocardial infarction Breast cancer Colorectal cancer Social History Smoking Status: Unknown if ever smoked Tobacco Type: Cigarettes packs per day: 2; Second Hand Exposure: No; Hx Alcohol Use: No (stopped 7 years ago) Hx Substance Use: No Preferred Language: Chinese Communication Ability: Effective Visual Impairment: No Limitations Hearing Ability: Normal 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 Required: No Beliefs That Will Affect Care: None marital status: Current Living Situation: Spouse current occupational status: retired How many Children do You have: 2 Feels Safe at Home: Yes Childhood Exposure to Second-Hand Smoke: Yes caffeine: Yes (coffee 4 cups a day ) Dental Care, Regularly: Yes Physical Activity Frequency: Daily Physical Activity Frequency Comment: bicycle Seatbelt Use: always Sunscreen Use: Yes Assistive Devices: Cane and Walker Allergies Allergies Allergy/AdvReac Type Severity Reaction Status Date / Time No Known Allergies Allergy Verified 09/27/22 11:45 Home Meds Home Medications Medication Instructions Recorded Confirmed Lactobacillus rhamnosus GG 10 1 cap PO QAM 10/15/19 09/20/22 billion cell capsule (Culturelle) acetaminophen 500 mg tablet 1,000 mg PO QID PRN Fever Or Pain 10/15/19 09/20/22 (Tylenol Extra Strength) metformin 500 mg tablet,extended 1,000 mg PO BID 08/17/22 09/20/22 release 24 hr cholecalciferol (vitamin D3) 50 50 mcg PO DAILY 09/20/22 09/20/22 mcg (2,000 unit) capsule fentanyl 25 mcg/hr transdermal 1 patch transdermal Q72H 09/27/22 09/27/22 patch furosemide 20 mg tablet (Lasix) 10 mg PO DAILY 09/27/22 09/27/22 lorazepam 0.5 mg tablet (Ativan) 0.5 mg PO TID PRN 09/27/22 09/27/22 Previous Rx's Medication Instructions Recorded omeprazole 20 mg capsule,delayed 20 mg PO QAM #90 caps 10/21/21 release blood sugar diagnostic (OneTouch #100 ea 11/16/21 Verio test strips) Oneuch Delica Lancets 33 gauge #100 ea 07/19/22 (lancets) allopurinol 300 mg tablet 300 mg PO HS #30 tabs 08/27/22 amiodarone 200 mg tablet 200 mg PO BID #60 tabs 08/27/22 buspirone 5 mg tablet 5 mg PO TID PRN anxiety #30 tabs 08/27/22 morphine 15 mg immediate release 15 mg PO Q4H PRN pain #30 tabs 08/27/22 tablet levalbuterol tartrate 45 2 puff inhalation Q6H PRN 08/28/22 mcg/actuation aerosol inhaler cough/wheeze/shortness of breath (Xopenex HFA) #1 g sodium chloride 1 gram tablet 1,000 mg PO DAILY #30 tabs 08/28/22 Results & Data (ED) Vital Signs Vital Signs - 24 hr 09/30/22 06:24 09/30/22 06:24 09/30/22 06:24 Temperature 36.9 C 36.9 C Temperature Source Oral Oral Pulse Rate 142 H Pulse Rate [Apical] 140 H Pulse Rate from SpO2 Sensor Pulse Rhythm Regular Pulse Rhythm [Apical] Regular Pulse Strength Normal Respiratory Rate 14 16 Respiratory Effort / Characteristics Non-Labored Non-Labored Respiratory Depth Normal Normal Respiratory Pattern Regular Regular Blood Pressure 118/80 Blood Pressure Mean 92 Pulse Oximetry 94 96 Oxygen Delivery Method Room Air Room Air Room Air Sepsis Recent Fever Within 48 Hours Yes Sepsis New/Unexplained Change in Mental Status No Sepsis Action Taken by Nursing No Action Required 09/30/22 07:00 09/30/22 07:31 09/30/22 08:00 Temperature Temperature Source Pulse Rate 133 H 106 H Pulse Rate [Apical] Pulse Rate from SpO2 Sensor 139 H 90 Pulse Rhythm Pulse Rhythm [Apical] Pulse Strength Respiratory Rate 19 22 Respiratory Effort / Characteristics Respiratory Depth Respiratory Pattern Blood Pressure Blood Pressure Mean Pulse Oximetry 95 94 Oxygen Delivery Method Room Air Sepsis Recent Fever Within 48 Hours Sepsis New/Unexplained Change in Mental Status Sepsis Action Taken by Nursing 09/30/22 08:19 09/30/22 08:19 09/30/22 08:30 Temperature Temperature Source Pulse Rate 87 Pulse Rate [Apical] Pulse Rate from SpO2 Sensor 87 Pulse Rhythm Pulse Rhythm [Apical] Pulse Strength Respiratory Rate 17 Respiratory Effort / Characteristics Respiratory Depth Respiratory Pattern Blood Pressure 115/61 96/68 L Blood Pressure Mean 79 77 Pulse Oximetry 96 Oxygen Delivery Method Sepsis Recent Fever Within 48 Hours Sepsis New/Unexplained Change in Mental Status Sepsis Action Taken by Nursing 09/30/22 08:30 Temperature Temperature Source Pulse Rate 145 H Pulse Rate [Apical] Pulse Rate from SpO2 Sensor 145 H Pulse Rhythm Pulse Rhythm [Apical] Pulse Strength Respiratory Rate 23 Respiratory Effort / Characteristics Respiratory Depth Respiratory Pattern Blood Pressure Blood Pressure Mean Pulse Oximetry 96 Oxygen Delivery Method Sepsis Recent Fever Within 48 Hours Sepsis New/Unexplained Change in Mental Status Sepsis Action Taken by Jail Medications Current Medication List: was personally reviewed by me Laboratory Data Attestation: I reviewed the patient's lab results. Result diagrams: 09/30/22 Unknown 09/30/22 Unknown Lab Results 09/30/22 09/30/22 09/30/22 Range/Units 07:29 07:29 07:35 WBC (4.8-10.8) K/ul RBC (3.93-5.22) M/uL Hgb (12.0-16.0) g/dl Hct (34.1-44.9) % MCV (80.0-100.0) fL MCH (25.0-34.0) pg MCHC (32.0-36.0) g/dL RDW Std Deviation (36.4-46.3) fL RDW Coeff of Charlie (11.5-14.5) % Plt Count (130-400) K/uL MPV (9.4-12.3) fL Immature Gran % (Auto) % Neut % (Auto) % Lymph % (Auto) % [place] % (Auto) % Eos % (Auto) % Baso % (Auto) % Neut # (Auto) (1.4-6.5) K/uL Lymph # (Auto) (1.2-3.4) K/uL [place] # (Auto) (0.24-0.82) K/uL Eos # (Auto) (0-0.50) K/uL Baso # (Auto) (0-0.2) K/uL Immature Gran # (Auto) (0.00-0.02) K/uL Toxic Granulation Platelet Estimate (Normal) Echinocytes Sodium (136-145) mmol/L Potassium 2.8 L (3.5-5.1) mmol/L Chloride (98-107) mmol/L Carbon Dioxide (21-32) mmol/L Anion Gap (3-11) BUN (6-23) mg/dl Creatinine (0.6-1.2) mg/dl Est Cr Clr Drug Dosing ml/min Est GFR ( Amer) ml/min Est GFR (Non-Af Amer) ml/min BUN/Creatinine Ratio (10-20) Glucose (70-99(Fasting)) mg/dl Lactate 1.5 (0.4-2.0) mmol/L Calcium (8.5-10.1) mg/dl Magnesium (1.7-2.4) mg/dl Total Bilirubin (0.2-1.0) mg/dl AST 33 (13-39) U/L ALT (7-52) U/L Alkaline Phosphatase (34-104) U/L Troponin I High Sens (0-14) pg/ml Total Protein (6.0-8.3) gm/dl Albumin (3.4-5.0) gm/dl Globulin (2.5-4.0) gm/dl Albumin/Globulin Ratio (0.9-2) TSH 2.500 (0.300-4.500) uIu/ml Urine Color Urine Appearance (Clear) Urine pH (4.5-7.5) Ur Specific [place] (1.000-1.030) Urine Protein (Negative) Urine Glucose (UA) (Negative) Urine Ketones (Negative) Urine Blood (Negative) Urine Nitrite (Negative) Urine Bilirubin (Negative) Urine Urobilinogen (Negative) Ur Leukocyte Esterase (Negative) Urine RBC (0-4) /hpf Urine WBC (0-5) /hpf Ur Epithelial Cells (0-5) /lpf Urine Bacteria (Negative) Stl C. diff Tox B Gene (Neg) SARS-CoV-2 (PCR) (Negative) Influenza Type A (PCR) (Neg) Influenza Type B (PCR) (Neg) RSV (RT-PCR) (Neg) 09/30/22 09/30/22 09/30/22 Range/Units 07:51 Unknown Unknown WBC 6.00 (4.8-10.8) K/ul RBC 4.12 (3.93-5.22) M/uL Hgb 12.2 (12.0-16.0) g/dl Hct 34.1 (34.1-44.9) % MCV 82.8 (80.0-100.0) fL MCH 29.6 (25.0-34.0) pg MCHC 35.8 (32.0-36.0) g/dL RDW Std Deviation 47.0 H (36.4-46.3) fL RDW Coeff of Charlie 15.9 H (11.5-14.5) % Plt Count 116 L (130-400) K/uL MPV 11.0 (9.4-12.3) fL Immature Gran % (Auto) 5.8 % Neut % (Auto) 72.3 % Lymph % (Auto) 18.8 % [place] % (Auto) 2.7 % Eos % (Auto) 0.2 % Baso % (Auto) 0.2 % Neut # (Auto) 4.34 (1.4-6.5) K/uL Lymph # (Auto) 1.13 L (1.2-3.4) K/uL [place] # (Auto) 0.16 L (0.24-0.82) K/uL Eos # (Auto) 0.01 (0-0.50) K/uL Baso # (Auto) 0.01 (0-0.2) K/uL Immature Gran # (Auto) 0.35 H (0.00-0.02) K/uL Toxic Granulation 2+ Platelet Estimate Decreased L (Normal) Echinocytes 3+ Sodium 137 (136-145) mmol/L Potassium TNP (3.5-5.1) mmol/L Chloride 98 (98-107) mmol/L Carbon Dioxide 21 (21-32) mmol/L Anion Gap 18 H (3-11) BUN 54 H (6-23) mg/dl Creatinine 1.26 H (0.6-1.2) mg/dl Est Cr Clr Drug Dosing 35.4 ml/min Est GFR ( Amer) 46.9 ml/min Est GFR (Non-Af Amer) 40.5 ml/min BUN/Creatinine Ratio 42.9 H (10-20) Glucose 116 H (70-99(Fasting)) mg/dl Lactate (0.4-2.0) mmol/L Calcium 8.0 L (8.5-10.1) mg/dl Magnesium 1.6 L (1.7-2.4) mg/dl Total Bilirubin 0.5 (0.2-1.0) mg/dl AST TNP (13-39) U/L ALT 31 (7-52) U/L Alkaline Phosphatase 120 H (34-104) U/L Troponin I High Sens 30.5 H (0-14) pg/ml Total Protein 6.1 (6.0-8.3) gm/dl Albumin 3.1 L (3.4-5.0) gm/dl Globulin 3.0 (2.5-4.0) gm/dl Albumin/Globulin Ratio 1.0 (0.9-2) TSH (0.300-4.500) uIu/ml Urine Color Urine Appearance (Clear) Urine pH (4.5-7.5) Ur Specific [place] (1.000-1.030) Urine Protein (Negative) Urine Glucose (UA) (Negative) Urine Ketones (Negative) Urine Blood (Negative) Urine Nitrite (Negative) Urine Bilirubin (Negative) Urine Urobilinogen (Negative) Ur Leukocyte Esterase (Negative) Urine RBC (0-4) /hpf Urine WBC (0-5) /hpf Ur Epithelial Cells (0-5) /lpf Urine Bacteria (Negative) Stl C. diff Tox B Gene Negative Cdiff Gene (Neg) SARS-CoV-2 (PCR) (Negative) Influenza Type A (PCR) (Neg) Influenza Type B (PCR) (Neg) RSV (RT-PCR) (Neg) 09/30/22 09/30/22 Range/Units Unknown Unknown WBC (4.8-10.8) K/ul RBC (3.93-5.22) M/uL Hgb (12.0-16.0) g/dl Hct (34.1-44.9) % MCV (80.0-100.0) fL MCH (25.0-34.0) pg MCHC (32.0-36.0) g/dL RDW Std Deviation (36.4-46.3) fL RDW Coeff of Charlie (11.5-14.5) % Plt Count (130-400) K/uL MPV (9.4-12.3) fL Immature Gran % (Auto) % Neut % (Auto) % Lymph % (Auto) % [place] % (Auto) % Eos % (Auto) % Baso % (Auto) % Neut # (Auto) (1.4-6.5) K/uL Lymph # (Auto) (1.2-3.4) K/uL [place] # (Auto) (0.24-0.82) K/uL Eos # (Auto) (0-0.50) K/uL Baso # (Auto) (0-0.2) K/uL Immature Gran # (Auto) (0.00-0.02) K/uL Toxic Granulation Platelet Estimate (Normal) Echinocytes Sodium (136-145) mmol/L Potassium (3.5-5.1) mmol/L Chloride (98-107) mmol/L Carbon Dioxide (21-32) mmol/L Anion Gap (3-11) BUN (6-23) mg/dl Creatinine (0.6-1.2) mg/dl Est Cr Clr Drug Dosing ml/min Est GFR ( Amer) ml/min Est GFR (Non-Af Amer) ml/min BUN/Creatinine Ratio (10-20) Glucose (70-99(Fasting)) mg/dl Lactate (0.4-2.0) mmol/L Calcium (8.5-10.1) mg/dl Magnesium (1.7-2.4) mg/dl Total Bilirubin (0.2-1.0) mg/dl AST (13-39) U/L ALT (7-52) U/L Alkaline Phosphatase (34-104) U/L Troponin I High Sens (0-14) pg/ml Total Protein (6.0-8.3) gm/dl Albumin (3.4-5.0) gm/dl Globulin (2.5-4.0) gm/dl Albumin/Globulin Ratio (0.9-2) TSH (0.300-4.500) uIu/ml Urine Color Brown Urine Appearance Cloudy A (Clear) Urine pH 8.5 H (4.5-7.5) Ur Specific [place] 1.020 (1.000-1.030) Urine Protein 3+ H (Negative) Urine Glucose (UA) Negative (Negative) Urine Ketones 2+ H (Negative) Urine Blood 2+ H (Negative) Urine Nitrite Positive A (Negative) Urine Bilirubin 1+ H (Negative) Urine Urobilinogen Negative (Negative) Ur Leukocyte Esterase Trace H (Negative) Urine RBC 10-30 H (0-4) /hpf Urine WBC >30 H (0-5) /hpf Ur Epithelial Cells 0-5 (0-5) /lpf Urine Bacteria 4+ H (Negative) Stl C. diff Tox B Gene (Neg) SARS-CoV-2 (PCR) NEGATIVE (Negative) Influenza Type A (PCR) Negative (Neg) Influenza Type B (PCR) Negative (Neg) RSV (RT-PCR) Negative (Neg) Administered Medications Potassium Chloride (K [place] / Wtr) 10 meq in 100 mls @ 100 mls/hr IV ONE ONE; Protocol Stop: 09/30/22 09:44 Last Admin: 09/30/22 09:20 Dose: 100 mls/hr Documented By: AP Discontinued Medications Amiodarone HCl (Amiodarone 200 Mg Tab) 200 mg PO NOW ONE Stop: 09/30/22 08:21 Last Admin: 09/30/22 08:24 Dose: 200 mg Documented By: SR Sodium Chloride (Nss) 500 mls @ 999 mls/hr IV .Q31M ERNESTO Stop: 09/30/22 07:15 Last Infusion: 09/30/22 08:30 Dose: 0 mls/hr Documented By: Admin: 09/30/22 07:36 Dose: 999 mls/hr Documented By: AP Sodium Chloride (Nss 1000ml) 500 mls @ 999 mls/hr IV .Q31M ONE Stop: 09/30/22 07:23 Last Infusion: 09/30/22 08:30 Dose: 0 mls/hr Documented By: Admin: 09/30/22 07:35 Dose: 999 mls/hr Documented By: AP Cefepime HCl (Maxipime) 2,000 mg in 20 mls @ 5 mls/min IV NOW STA; Protocol Stop: 09/30/22 06:56 Last Admin: 09/30/22 07:35 Dose: 5 mls/min Documented By: SARA Magnesium Sulfate/Dextrose (Magnesium Sulfate / D5w) 1 gm in 100 mls @ 100 mls/hr IV NOW STA Stop: 09/30/22 08:53 Last Admin: 09/30/22 08:24 Dose: 100 mls/hr Documented By: SR Imaging Data Radiologist's Impression: Chest X-Ray 09/30/22 06:38 XR chest 1V portable HISTORY: 77 years-old Female weakness acute weakness COMPARISON: Chest radiograph 08/24/2022 TECHNIQUE: AP view of the chest FINDINGS: Left IJ [id number] catheter distal tip is noted in the expected location of the upper SVC. No pneumothorax, or pleural effusion. Emphysema. Right upper lobe mass redemonstrated. There is improved aeration of the right upper lung compared to the 08/24/2022 study with persistent right upper lung densities. Chronic interstitial coarsening. Right hilar lymphadenopathy. The heart is mildly enlarged with mitral annular calcifications. Degenerative changes of the shoulders and spine. IMPRESSION: 1. Right upper lobe mass redemonstrated with improved aeration of the right upper lobe compared to the 08/24/2022 study. Mild right upper lobe opacities may represent a degree of postobstructive pneumonitis. 2. Emphysema with chronic interstitial coarsening. ACT 112: Negative or not required by law. The above report was generated using voice recognition software. It may contain grammatical, syntax or spelling errors. Electronically signed by: Damion Kelly M.D. 09/30/2022 8:31 AM Discharge Plan Visit Data Chief Complaint: Weakness Stated Complaint: WEAKNESS ED Provider: Yonatan Najera Discharge Problem: Weakness, Dehydration, Acute UTI, Hypomagnesemia, Hypokalemia, Elevated troponin Patient Disposition: Admitted As Inpatient Condition: Fair Forms Stand Alone Forms: [facility] Prescriptions Prescriptions: No Action cholecalciferol (vitamin D3) 50 mcg (2,000 unit) capsule 50 mcg PO DAILY fentanyl 25 mcg/hr patch 72 hour 1 patch transdermal Q72H furosemide [Lasix] 20 mg tablet 10 mg PO DAILY lorazepam [Ativan] 0.5 mg tablet 0.5 mg PO TID PRN Label Comments: has not been taking omeprazole 20 mg capsule,delayed release(DR/EC) 20 mg PO QAM Qty: 90 3RF (DME) OneTouch Verio test strips Strip See Rx Instructions .ROUTE .MEDSUPPLY Qty: 100 3RF Rx Instructions: tests one time daily (DME) lancets [OneTouch Delica Lancets] 33 gauge misc See Rx Instructions .ROUTE .MEDSUPPLY Qty: 100 3RF Rx Instructions: use to test once daily acetaminophen [Tylenol Extra Strength] 500 mg tablet 1,000 mg PO QID PRN (Reason: Fever Or Pain) Culturelle 10 billion cell capsule 1 cap PO QAM metformin 500 mg tablet extended release 24 hr 1,000 mg PO BID Rx Instructions: TAKE 2 TABLETS BY MOUTH TWICE DAILY amiodarone 200 mg Tablet 200 mg PO BID Qty: 60 2RF allopurinol 300 mg Tablet 300 mg PO HS Qty: 30 5RF morphine 15 mg Tablet 15 mg PO Q4H PRN (Reason: pain) Qty: 30 0RF buspirone 5 mg tablet 5 mg PO TID PRN (Reason: anxiety) Qty: 30 0RF sodium chloride 1 gram tablet 1,000 mg PO DAILY Qty: 30 2RF levalbuterol tartrate [Xopenex HFA] 45 mcg/actuation Hfa Aerosol Inhaler 2 puff inhalation Q6H PRN (Reason: cough/wheeze/shortness of breath) Qty: 1 0RF Rx Instructions: use with spacer device Referrals Referrals: Delbert Miramontes MD [Primary Care Provider] -
[2022-09-30 07:31] LABS: Appearance Urine Cloudy (Clear); Bilirubin Urine 1+ (Negative); Blood Urine 2+ (Negative); Color Urine Brown; Glucose Urine UA Negative (Negative); Ketones Urine 2+ (Negative); Leukocyte Esterase Urine Trace (Negative); Nitrite Urine Positive (Negative); Protein Urine 3+ (Negative); Urobilinogen Urine Negative (Negative); pH Urine 8.5 (4.5-7.5)
[2022-09-30 07:34] LABS: Bacteria Urine 4+ (Negative); Epithelial Cell Urine 0-5 /lpf (0-5); WBC Urine >30 /hpf (0-5)
[2022-09-30 07:44] LABS: Basophils # (auto) 0.01 K/uL (0-0.2); Basophils % (auto) 0.2 %; Echinocytes 3+; Eosinophils # (auto) 0.01 K/uL (0-0.50); Eosinophils % (auto) 0.2 %; Hematocrit (blood only) 34.1 % (34.1-44.9); Hemoglobin 12.2 g/dl (12.0-16.0); Immature Granulocytes # (auto) 0.35 K/uL (0.00-0.02); Immature Granulocytes % (auto) 5.8 %; Lymphocytes # (auto) 1.13 K/uL (1.2-3.4); Lymphocytes % (auto) 18.8 %; Mean Corpuscular Hemoglobin 29.6 pg (25.0-34.0); Mean Corpuscular Hgb Conc 35.8 g/dL (32.0-36.0); Mean Corpuscular Volume 82.8 fL (80.0-100.0); Monocytes # (auto) 0.16 K/uL (0.24-0.82); Monocytes % (auto) 2.7 %; Neutrophils # (auto) 4.34 K/uL (1.4-6.5); Neutrophils % (auto) 72.3 %; Platelet Count 116 K/uL (130-400); Platelet Estimate Decreased (Normal); RDW Coefficient of Variation 15.9 % (11.5-14.5); Red Blood Count 4.12 M/uL (3.93-5.22); Toxic Granulation 2+
[2022-09-30 07:45] LABS: Troponin I High Sensitivity 30.5 pg/ml (0-14)
[2022-09-30 07:48] LABS: Alanine Aminotransferase 31 U/L (7-52); Albumin Level 3.1 gm/dl (3.4-5.0); Alkaline Phosphatase 120 U/L (34-104); Anion Gap 18 (3-11); BUN Creatinine Ratio 42.9 (10-20); Bilirubin,Total 0.5 mg/dl (0.2-1.0); Blood Urea Nitrogen 54 mg/dl (6-23); Carbon Dioxide 21 mmol/L (21-32); Chloride 98 mmol/L (98-107); Creatinine Clr Calc Pharmacy 35.4 ml/min; Est GFR (African American) 46.9 ml/min; Est GFR (Non-African American) 40.5 ml/min; Glucose 116 mg/dl (70-99(Fasting)); Magnesium 1.6 mg/dl (1.7-2.4); Sodium 137 mmol/L (136-145); Total Protein 6.1 gm/dl (6.0-8.3)
[2022-09-30] MEDS ORDERED: MAGNESIUM SULFATE / D5W 1 GM/100 ML BAG IV STA (07:54)
[2022-09-30] MEDS ORDERED: LACTATED RINGER'S 1,000 ML IV ONE (07:54)
[2022-09-30 08:18] LABS: Potassium 2.8 mmol/L (3.5-5.1)
[2022-09-30] MEDS ORDERED: AMIODARONE 200 MG TAB PO ONE (08:20)
--- NOTE | 2022-09-30 08:33 | XRay Report ---
XR chest 1V portable HISTORY: 77 years-old Female weakness acute weakness COMPARISON: Chest radiograph 08/24/2022 TECHNIQUE: AP view of the chest FINDINGS: Left IJ [id number] catheter distal tip is noted in the expected location of the upper SVC. No pneu mothorax, or pleural effusion. Emphysema. Right upper lobe mass redemonstrated. There is improved aer ation of the right upper lung compared to the 08/24/2022 study with persistent right upper lung densit ies. Chronic interstitial coarsening. Right hilar lymphadenopathy. The heart is mildly enlarged with mitral annular calcifications. Degenerative changes of the shoulders and spine. IMPRESSION: 1. Right upper lobe mass redemonstrated with improved aeration of the right upper lobe compared to th e 08/24/2022 study. Mild right upper lobe opacities may represent a degree of postobstructive pneumoni tis. 2. Emphysema with chronic interstitial coarsening. ACT 112: Negative or not required by law. The above report was generated using voice recognition software. It may contain grammatical, syntax o r spelling errors. Electronically signed by: Damion Kelly M.D. 09/30/2022 8:31 AM
[2022-09-30 08:43] LABS: Influenza A virus by PCR Negative (Neg); Influenza B virus by PCR Negative (Neg); RSV by PCR Negative (Neg); SARS CoV2 RNA(COVID-19) Ceph NEGATIVE (Negative)
[2022-09-30] MEDS ORDERED: POTASSIUM CHLORIDE / WTR 10 MEQ/100 ML PLCT IV ONE (08:45)
[2022-09-30 09:48] LABS: Adenovirus F 40/41 PCR Not Detected (NotDetected); Astrovirus PCR Not Detected (NotDetected); Campylobacter PCR Not Detected (NotDetected); Cryptosporidium PCR Not Detected (NotDetected); Cyclospora cayetanensis PCR Not Detected (NotDetected); Entamoeba histolytica PCR Not Detected (NotDetected); Enteropathogenic E.coli (EPEC) Not Detected (NotDetected); Enterotoxigenic E.coli (ETEC) Not Detected (NotDetected); Giardia lamblia PCR Not Detected (NotDetected); Norovirus GI/GII PCR Not Detected (NotDetected); Plesiomonas shigelloides PCR Not Detected (NotDetected); Rotavirus A PCR Not Detected (NotDetected); Salmonella PCR Not Detected (NotDetected); Sapovirus PCR Not Detected (NotDetected); Shiga-like Toxin E.coli (STEC) Not Detected (NotDetected); Shigella/Enteroinvasive E.coli Not Detected (NotDetected); Vibrio cholerae PCR Not Detected (NotDetected); Vibrio species PCR Not Detected (NotDetected); Yersinia enterocolitica PCR Not Detected (NotDetected)
--- NOTE | 2022-09-30 10:13 | History & Physical Report ---
Date of Service September 30, 2022 Assessment & Plan (1) Acute UTI: Plan: Attending: Dr. 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 She is being followed by oncology with Dr. Sampson Haas as well as radiation oncology with Dr. Padmini Romero. She is engaged with the palliative care team. She presents today with weakness and urinary tract infection. Boucher catheter is in place and draining well. Microbiology reveals E. coli with some resistance. Patient received cefepime in the emergency department. We will continue this due to patient's comorbidities and acute presentation. Patient currently is afebrile. She has no other acute complaints other than weakness and generalized pain from her metastatic disease. Patient diagnosed with urinary tract infection outpatient and failed treatment with Nitrofurantoin (Macrobid) Presents today with increased weakness and irritation in the suprapubic region. Blood cultures x2 are pending. Repeat urine culture is also pending. Patient started on cefepime IV. We will continue this at 1 g every 12 hours pending panculture results. Admit to the PCU telemetry unit due to a history of SVT as well as some mild hypotension (2) Weakness: Plan: Patient with widespread metastatic disease with small cell lung cancer primary Will order PT/OT evaluation and treatment Continue to replete electrolytes and follow per protocol (3) Hypomagnesemia: Plan: Patient received replacement magnesium in the emergency department Will check repeat labs at 1400 today Maintain magnesium level of 2.0 or greater (4) Hypokalemia: Plan: Patient received potassium chloride riders in the emergency department Patient denies any arrhythmia or awareness of ectopy Check repeat labs at 1400 and replete to maintain potassium level greater than 3.5 (5) Elevated troponin: Plan: No chest pain or tightness. No changes on EKG Most likely secondary to ischemic demand Will follow serial troponin levels at noon and 1800 EKG with chest pain Repeat EKG in the morning (6) Cancer related pain: Plan: Continue home regimen of pain medicine Palliative medicine has been involved and we will ask them to engage during this hospital stay (7) History of cigarette smoking: Plan: 70-iqoi-yygm smoking history Quit smoking at age 71 History of COPD but I am unable to locate pulmonary function testing Patient has rescue inhaler at home with levalbuterol (Xopenex) and no other pulmonary treatment Treat supportively and maintain SaO2 between 88 and 92% due to pack-year history (8) Type 2 diabetes mellitus: Plan: Most recent hemoglobin A1c was 6.3% Patient is not on home insulin Will hold patient's metformin during this hospital stay and place patient on NovoLog sliding scale insulin with BSG ACHS (9) Small cell lung cancer: Plan: Recent diagnosis by liver biopsy in with lung primary August 2022 Widespread metastasis to liver, bone, brain Continue management with Dr. Sampson [facility] as well as Dr. Padmini Romero from [facility] [place] (10) SVT (supraventricular tachycardia): Plan: Multiple episodes of SVT during the patient's last admission in August 2022 Currently on amiodarone 200 mg p.o. daily for suppression Will monitor on telemetry unit Patient is a DNR/DNI but would agree to electrical cardioversion or IV medications to treat her arrhythmias (11) Hyperlipidemia: Plan: Patient previous was on a statin. This is been discontinued as it is contraindicated with amiodarone treatment Continue heart healthy diet (12) Mechanical deep vein thrombosis (DVT) prophylaxis in place: Plan: Patient with history of SVT and widespread malignancy with metastasis Knee-high SCDs Enoxaparin daily with renal dosing. Plan Patient admitted with complicated UTI requiring IV antibiotics that she failed outpatient therapy with p.o. antibiotics Patient does have a Mediport placed in her left subclavian region. This should be accessed and managed Peripheral IV also established in the right hand IV fluids with normal saline with potassium replacement Please refer to Dr. Mario Hunter's addendum for further recommendations and corrections. Admission and Anticipated Discharge Date Admission Date: 09/30/2022 History of Present Illness Chief Complaint: Urinary tract infection with weakness Primary Care Provider: Delbert Miramontes MD Attending: Dr. Mario Hunter This is a very pleasant 77-year-old female with a past medical history including heavy tobacco abuse with an 36-filb-bjzy history who quit smoking 6 years ago, history of ethanol abuse who quit drinking 6 years ago, diabetes mellitus type 2 on metformin, COPD, CHF, supraventricular tachycardia on amiodarone, gout, depression, anxiety, GERD, chronic pain on a fentanyl patch, obesity secondary to excess calories. She presents with weakness and urine tract infection she failed outpatient therapy and presents with electrolyte imbalance, hypotension, and from weakness. Urine culture reveals E. coli with some resistance to Augmentin, ampicillin, Unasyn, cefazolin, and Bactrim. Patient denies any fever. She has no hematuria. She has no abdominal pain. She does report some incontinence. She also reports some diarrhea over the last several days with 2-3 watery bowel movements a day. She denies any hematochezia or melena. She has no previous history of GI bleed. She has no suprapubic pain. She does complain of increased edema of the bilateral lower extremities. She reports that this is been going on for several days. She has no asymmetrical edema. She has no pleuritic pain or calf pain. Patient was previously admitted to [facility] 08/17/2022 to 08/28/2022 for acute back pain. Imaging revealed numerous rim-enhancing hypodense lesions in the liver. Imaging reveals what appears to be widely metastatic cancer this suspect to be primary lung. Patient has not had tissue biopsy of the lung. A CT-guided biopsy of liver was completed and at that time and pathology revealed small cell carcinoma of the lung primary. Patient is known to have stage IV primary small cell lung cancer with metastasis to the liver, spine, and most likely brain. She does follow with oncology as well as radiation oncology. Patient has also seen palliative care. Note reviewed from 09/23/2022. Continue focus on palliation. Patient does confirm that she is a level V DNR/DNI but would like electrical cardioversion if needed as well as IV medications as appropriate. Patient does state that she is aware of the severity of her disease. She also states that her is very ill at home with cardiac issues and that they are having difficulty managing treatment and health plan at home. She does have a 57-year-old son and a 55-year-old daughter who are local and very active in their care. Previous smoker with 14-fbmg-nnlo smoking history who quit smoking at age 71 Previous history of ethanol abuse. She quit drinking at age 71 Patient has never had COVID. She has been vaccinated with Pfizer x2+3 boosters. Patient lives at home with her . They are struggling to perform ADLs and may need assistance at the home with medication management. They do apparently have home health scheduled to start helping at the home. 08/17/2022. X-ray of the left hip and pelvis. No acute fracture within the pelvis or hips. Mild bilateral hip osteoarthritis. 08/17/2022. CT of the abdomen and pelvis. Numerous ring-enhancing hypodense lesions in the liver are concerning for metastatic disease in this patient status post hemicolectomy. No evidence of diverticulitis. There is nodularity of the adrenal glands bilaterally, nonspecific. Thickening of gastric wall may be secondary to undistended, clinical correlation for gastritis is recommended. Lytic lesion arising from the right aspect of the L5 vertebral body with an associated soft tissue mass and pathologic fracture. 08/17/2022. With these findings she was advised by the primary care provider to report to the emergency room for control of pain and further evaluation to determine source of metastatic disease. 08/18/2022. CT chest. 1. Right upper lobe mass consistent with central bronchogenic carcinoma which occludes the right upper lobe bronchus and results in subtotal right upper lobe collapse. Mediastinal involvement which results in moderate SVC narrowing due to invasion. Pulmonary consultation is recommended. 2. Associated jolene, hepatic, adrenal and skeletal metastases, as detailed above. 3. Emphysema. 4. Trace right pleural effusion. 08/18/2022. MRI cervical spine. 1. Multiple scattered metastatic lesions seen throughout the cervical spine. No pathologic fractures or epidural extension at this time. 2. Partial visualization of the patient's known right upper lobe mass. 08/18/2022. MRI thoracic spine. 1. Multiple scattered metastatic lesions seen throughout the thoracic spine. No pathologic fractures or epidural involvement at this time. 2. Partial visualization of the patient's known right upper lobe mass and hepatic lesions. 08/18/2022. MRI lumbar spine. 1. Extensive multifocal marrow replacement consistent with metastatic disease. L4 and L5 pathologic fractures with mild los s of height. Possible minimal epidural extension of tumor at the L4 and L5 levels, as described above. Post contrast images compromised by motion artifact. No large epidural component. 2. Severe central canal stenosis at L4-L5 due to facet arthrosis, ligamentous hypertrophy and anterolisthesis with uncovering of the disc. Mild to moderate central canal stenosis at L3-L4. 3. Multilevel neural femoral stenosis, as above. 08/19/2022. Liver biopsy ultrasound. Pathology results pending. 08/19/2022. Palliative care consultation. 08/20/2022. Consult with Dr. Qiu from pulmonary in the hospital. At this time. No indication for additional pulmonary procedures unless the liver biopsyFails to provide diagnosis.Agrees with MRI of brain to evaluate for occult [employer] metastasis. 09/20/2022. Ultrasound venous Doppler of the bilateral lower extremities revealed no evidence of deep vein thrombosis 09/30/2022. Portable chest x-rayShows placement of a left IJ [id number]-[id number] catheter.Right upper lobe mass redemonstrated with improved aeration of the right upper lobe compared to the 08/24/2022 study.Mild right upper lobe opacities may represent a degree of postobstructive pneumonitis.There is chronic emphysema with chronic interstitial coarsening noted.No pleural effusionOr pneumothorax. Allergies Allergy/AdvReac Type Severity Reaction Status Date / Time No Known Allergies Allergy Verified 09/27/22 11:45 Home Medications Medication Instructions Recorded Confirmed Type Lactobacillus rhamnosus GG 10 1 cap PO QAM 10/15/19 09/20/22 History billion cell capsule (Culturelle) acetaminophen 500 mg tablet 1,000 mg PO QID PRN Fever Or Pain 10/15/19 09/20/22 History (Tylenol Extra Strength) omeprazole 20 mg capsule,delayed 20 mg PO QAM #90 caps 10/21/21 09/20/22 Rx release blood sugar diagnostic (OneTouch #100 ea 11/16/21 09/20/22 Rx Verio test strips) OneTouch Delica Lancets 33 gauge #100 ea 07/19/22 09/20/22 Rx (lancets) metformin 500 mg tablet,extended 1,000 mg PO BID 08/17/22 09/20/22 History release 24 hr allopurinol 300 mg tablet 300 mg PO HS #30 tabs 08/27/22 09/20/22 Rx amiodarone 200 mg tablet 200 mg PO BID #60 tabs 08/27/22 09/20/22 Rx buspirone 5 mg tablet 5 mg PO TID PRN anxiety #30 tabs 08/27/22 09/20/22 Rx morphine 15 mg immediate release 15 mg PO Q4H PRN pain #30 tabs 08/27/22 09/20/22 Rx tablet levalbuterol tartrate 45 2 puff inhalation Q6H PRN 08/28/22 09/20/22 Rx mcg/actuation aerosol inhaler cough/wheeze/shortness of breath (Xopenex HFA) #1 g sodium chloride 1 gram tablet 1,000 mg PO DAILY #30 tabs 08/28/22 09/20/22 Rx cholecalciferol (vitamin D3) 50 50 mcg PO DAILY 09/20/22 09/20/22 History mcg (2,000 unit) capsule fentanyl 25 mcg/hr transdermal 1 patch transdermal Q72H 09/27/22 09/27/22 History patch furosemide 20 mg tablet (Lasix) 10 mg PO DAILY 09/27/22 09/27/22 History lorazepam 0.5 mg tablet (Ativan) 0.5 mg PO TID PRN 09/27/22 09/27/22 History Past Med/Surg History Medical History (Updated 09/30/22 @ 10:57 by Yonatan Horton PA-C) Alcohol intoxication Blood loss Cancer related pain History of cigarette smoking Hyperlipidemia Hypertension Hyponatremia Hypotension Liver lesion Metastatic cancer Widespread Stage IV Met Ca likely lung primary, bx needed, 08/19/22 Open tibial fracture Palliative care encounter Pathologic lumbar vertebral fracture Sensorineural hearing loss of both ears Small cell lung cancer SVT (supraventricular tachycardia) Type 2 diabetes mellitus Surgical History History of ankle surgery broken ankle-2014 at [facility] History of appendectomy History of hemicolectomy January 2016--[facility] History of tonsillectomy History of tubal ligation Port-A-Cath in place (08/24/22) Aport Placement(Left) - Edwin Roa DO, FACS Family History Sister Primary adenocarcinoma of vagina Father Asthma Hypertension Macular degeneration Pulmonary embolism Mother Emphysema lung Brother Macular degeneration Denies family history of Ovarian cancer Prostate cancer Myocardial infarction Breast cancer Colorectal cancer Social History Smoking Status: Former smoker Tobacco Type: Cigarettes packs per day: 2; Second Hand Exposure: No; Hx Alcohol Use: No Hx Substance Use: No Preferred Language: Turkmen Communication Ability: Effective Visual Impairment: No Limitations Hearing Ability: Normal Legal Referee Required: No Beliefs That Will Affect Care: None marital status: Current Living Situation: Spouse current occupational status: retired How many Children do You have: 2 Other Information That Helps Us Care for You: No Feels Safe at Home: Yes Safety Concerns: Feels Safe At This Time Childhood Exposure to Second-Hand Smoke: Yes caffeine: Yes (coffee 4 cups a day ) Dental Care, Regularly: Yes Physical Activity Frequency: Daily Physical Activity Frequency Comment: bicycle Seatbelt Use: always Sunscreen Use: Yes Assistive Devices: Glasses, Hearing Aid - Bilateral, Walker and Wheelchair Review of Systems Review of Systems: A total of 10 systems was reviewed and is negative other than as listed in the HPI Physical Exam Physical Exam: GENERAL : No acute distress. Somewhat lethargic. EYES: No icterus, gaze conjugate. Pupils equal round and reactive to light. NOSE: No evidence of epistaxis MOUTH: No lesions or candidiasis. Mucosa moist. Tongue midline. NECK: Supple LUNGS: Bibasilar crackles. HEART: Regular, rate controlled. No appreciation of ectopy. No appreciation of atrial fibrillation at the time of my examination. ABDOMEN: Soft, NT, ND, BS Present EXTREMITIES: +2 B/L LE edema, pedal pulses intact and equal bilaterally. Radial pulses equal bilaterally. NEURO: A&OX3. Strength is equal and appropriate bilaterally with upper and lower extremities. Pupils equal round react light. Tongue midline. No slurred speech. Patient follows commands. Gait and Romberg are deferred. Results & Data Results & Data ([facility]) Vital Signs (Past 12 Hours) Vital Signs Temp Pulse Pulse Resp BP Pulse Ox O2 Del Method 09/30/22 08:30 145 H 23 96 09/30/22 08:30 96/68 L 09/30/22 08:19 87 17 96 09/30/22 08:19 115/61 09/30/22 08:00 106 H 22 94 09/30/22 07:31 133 H 19 95 09/30/22 07:00 Room Air 09/30/22 06:24 36.9 C 140 H 16 96 Room Air 09/30/22 06:24 Room Air 09/30/22 06:24 36.9 C 142 H 14 118/80 94 Room Air Laboratory Results Critical Care Results & Data Vital Signs (Past 12 Hours) Vital Signs Temp Pulse Pulse Resp BP Pulse Ox O2 Del Method 09/30/22 08:30 145 H 23 96 09/30/22 08:30 96/68 L 09/30/22 08:19 87 17 96 09/30/22 08:19 115/61 09/30/22 08:00 106 H 22 94 09/30/22 07:31 133 H 19 95 09/30/22 07:00 Room Air 09/30/22 06:24 36.9 C 140 H 16 96 Room Air 09/30/22 06:24 Room Air 09/30/22 06:24 36.9 C 142 H 14 118/80 94 Room Air Lab & Micro Results (Past 24 Hours) RBC 4.12 M/uL (3.93-5.22) 09/30/22 WBC 6.00 K/ul (4.8-10.8) 09/30/22 Hgb 12.2 g/dl (12.0-16.0) 09/30/22 Hct 34.1 % (34.1-44.9) 09/30/22 MCV 82.8 fL (80.0-100.0) 09/30/22 MCH 29.6 pg (25.0-34.0) 09/30/22 MCHC 35.8 g/dL (32.0-36.0) 09/30/22 RDW Standard Deviation 47.0 fL (36.4-46.3) H 09/30/22 RDW Coefficient of Variation 15.9 % (11.5-14.5) H 09/30/22 Plt Count 116 K/uL (130-400) L 09/30/22 MPV 11.0 fL (9.4-12.3) 09/30/22 Neutrophils (%) (Auto) 72.3 % 09/30/22 Lymphocytes (%) (Auto) 18.8 % 09/30/22 Monocytes # (Auto) 0.16 K/uL (0.24-0.82) L 09/30/22 Eosinophils # (Auto) 0.01 K/uL (0-0.50) 09/30/22 Immature Granulocyte % (Auto) 5.8 % 09/30/22 Neutrophils # (Auto) 4.34 K/uL (1.4-6.5) 09/30/22 Lymphocytes # (Auto) 1.13 K/uL (1.2-3.4) L 09/30/22 Monocytes # (Auto) 0.16 K/uL (0.24-0.82) L 09/30/22 Eosinophils # (Auto) 0.01 K/uL (0-0.50) 09/30/22 Basophils # (Auto) 0.01 K/uL (0-0.2) 09/30/22 Immature Granulocyte # (Auto) 0.35 K/uL (0.00-0.02) H 09/30 Echinocytes 3+ 09/30/22 Toxic Granulation 2+ 09/30/22 Na 137 mmol/L (136-145) 09/30/22 K TNP 09/30/22 Cl 98 mmol/L (98-107) 09/30/22 CO2 21 mmol/L (21-32) 09/30/22 Anion Gap 18 (3-11) H 09/30/22 BUN 54 mg/dl (6-23) H 09/30/22 Creatinine 1.26 mg/dl (0.6-1.2) H 09/30/22 Estimated GFR ( Amer) 46.9 ml/min 09/30/22 Estimated GFR (Non-Af Amer) 40.5 ml/min 09/30/22 BUN/Creatinine Ratio 42.9 (10-20) H 09/30/22 Glu 116 mg/dl (70-99(Fasting)) H 09/30/22 Ca 8.0 mg/dl (8.5-10.1) L 09/30/22 Total Bilirubin 0.5 mg/dl (0.2-1.0) 09/30/22 AST TNP 09/30/22 ALT 31 U/L (7-52) 09/30/22 Alkaline Phosphatase 120 U/L (34-104) H 09/30/22 TP 6.1 gm/dl (6.0-8.3) 09/30/22 Albumin 3.1 gm/dl (3.4-5.0) L 09/30/22 Globulin 3.0 gm/dl (2.5-4.0) 09/30/22 Albumin/Globulin Ratio 1.0 (0.9-2) 09/30/22 Mg 1.6 mg/dl (1.7-2.4) L 09/30/22 23:59 Calcium Level 8.0 mg/dl (8.5-10.1) L 09/30/22 23:59 Diagnostic Findings (Past 24 Hours) Chest X-Ray 09/30/22 06:38 XR chest 1V portable HISTORY: 77 years-old Female weakness acute weakness COMPARISON: Chest radiograph 08/24/2022 TECHNIQUE: AP view of the chest FINDINGS: Left IJ [id number] catheter distal tip is noted in the expected location of the upper SVC. No pneumothorax, or pleural effusion. Emphysema. Right upper lobe mass redemonstrated. There is improved aeration of the right upper lung compared to the 08/24/2022 study with persistent right upper lung densities. Chronic interstitial coarsening. Right hilar lymphadenopathy. The heart is mildly enlarged with mitral annular calcifications. Degenerative changes of the s houlders and spine. IMPRESSION: 1. Right upper lobe mass redemonstrated with improved aeration of the right upper lobe compared to the 08/24/2022 study. Mild right upper lobe opacities may represent a degree of postobstructive pneumonitis. 2. Emphysema with chronic interstitial coarsening. ACT 112: Negative or not required by law. The above report was generated using voice recognition software. It may contain grammatical, syntax or spelling errors. Electronically signed by: Damion Kelly M.D. 09/30/2022 8:31 AM I & O Totals 24 Hours 09/29/22 09/30/22 10/01/22 06:59 06:59 06:59 Intake Total 1000 / 1000 Balance 1000 / 1000 Cumulative 09/30/22 06:23 thru 09/30/22 08:30 Intake Total 1000 Balance 1000 RT Ventilator Mngmt (Last Documented) Ventilator Ordered Settings Respiratory Rate 23 09/30/22 08:30 Ventilator - PT Measurements Respiratory Rate 23 Code Status & VTE Plan Code Status Patient prefers to level V DNR/DNI. She would consider cardioversion if needed and would also like IV medications for cardiac care. VTE Prophylaxis Plan VTE Prophylaxis will be ordered: Yes Supervising Physician Co-Signing Physician Notes I supervised Yonatan Horton PA-C on this admission. I interviewed and examined the patient independently of him. The plan is as written in his note except for any following changes/exceptions: None 77yo F w/ hx of metastatic small cell lung cancer presenting with UTI and weakness. Failed outpatient oral therapy with Macrobid and now also presenting with significant IVAN that I think is likely dehydration. On exam, patient is somnolent, but arousable. Having runs of SVT. Reviewed telemetry strips, and appears consistent with prior episodes during last admission. Treatment for IVAN with fluids, replete electrolytes, treat UTI with cefepime today until cultures from ER today ritchie out. PG Care Time/CCT Total # of Minutes Spent Total Time Spent with Patient: Total time spent is greater than 50% in coordination of care (as documented) at patient's floor/unit and/or counseling patient: 60 Coding Level of Care Code 91631 Initial Inpt Care Lvl 3 Diagnoses Acute UTI N39.0 Weakness R53.1 Hypomagnesemia E83.42 Hypokalemia E87.6 Elevated troponin R77.8 Cancer related pain G89.3 History of cigarette smoking Z87.891 Type 2 diabetes mellitus E11.9 Small cell lung cancer C34.90 SVT (supraventricular tachycardia) I47.1 Hyperlipidemia E78.5 Mechanical deep vein thrombosis (DVT) prophylaxis in place Z78.9 Time Spent (min) 60
[2022-09-30 10:16] LABS: Enteroaggregative E.coli(EAEC) DETECTED (NotDetected)
[2022-09-30] MEDS ORDERED: MAGNESIUM HYDROXIDE SUSP 30 ML UDC PO PRN (11:55)
[2022-09-30] MEDS ORDERED: GLUCOSE 10 TAB/TUBE PO PRN (11:55)
[2022-09-30] MEDS ORDERED: CARBOHYDRATES FOR HYPOGLYCEMIA PO PRN (11:55)
[2022-09-30] MEDS ORDERED: DEXTROSE 50% 50 ML SYRINGE IV PRN (11:55)
[2022-09-30] MEDS ORDERED: GLUCAGON FOR INJ 1 MG VIAL SQ PRN (11:55)
[2022-09-30] MEDS ORDERED: GLUCOSE 40% GEL 15 GM TUBE PO PRN (11:55)
[2022-09-30] MEDS ORDERED: POLYETHYLENE (MIRALAX) 17 GM PACK PO PRN (11:55)
[2022-09-30] MEDS ORDERED: ALUMINUM/MAGNESIUM SUSP 30 ML UDC PO PRN (11:55)
[2022-09-30] MEDS ORDERED: MoRPHine SULFATE IR 15 MG TAB (IMMEDIATE RELEASE) PO PRN (11:55)
[2022-09-30] MEDS: INSULIN ASPART PER UNIT SC SCH ×3 (12:55→20:37)
[2022-09-30] MEDS: CHECK fentaNYL PATCH PLACEMENT SCH (12:56)
[2022-09-30] MEDS: SODIUM CHLORIDE 1 GM TABLET PO SCH (13:02)
[2022-09-30] MEDS: ENOXAPARIN INJ 30 MG/0.3 ML SYR SQ SCH (13:02)
[2022-09-30] MEDS: NSS + 20MEQ KCL 20 MEQ/1,000 ML BAG IV SCH (13:42)
--- NOTE | 2022-09-30 15:18 | Electrocardiogram Report ---
Test Reason : Blood Pressure : / mmHG Vent. Rate : 095 BPM Atrial Rate : 095 BPM P-R Int : 160 ms QRS Dur : 078 ms QT Int : 366 ms P-R-T Axes : 005 035 106 degrees QTc Int : 459 ms Sinus rhythm with marked sinus arrhythmia Low voltage QRS Cannot rule out Old Septal infarct Diffuse Minor Nonspecific ST abnormality Abnormal ECG When compared with ECG of 25-AUG-2022 08:45, Premature atrial complexes are no longer Present Criteria for Septal infarct is now Present Nonspecific ST abnormality now present Confirmed by Enzo Watson ([id number]) on 09/30/2022 3:18:00 PM Referred By: REFERRED SELF Confirmed By:Enzo Watson
--- NOTE | 2022-09-30 15:18 | Electrocardiogram Report ---
Test Reason : Blood Pressure : / mmHG Vent. Rate : 142 BPM Atrial Rate : 127 BPM P-R Int : 000 ms QRS Dur : 088 ms QT Int : 302 ms P-R-T Axes : 000 001 214 degrees QTc Int : 464 ms Supraventricular tachycardia Diffuse Nonspecific ST abnormality Abnormal ECG When compared with ECG of 30-SEP-2022 07:34, Vent. rate has increased BY 47 BPM Criteria for Septal infarct are no longer Present Confirmed by Enzo Watson ([id number]) on 09/30/2022 3:18:34 PM Referred By: REFERRED SELF Confirmed By:Enzo Watson
[2022-09-30 15:43] LABS: Calcium 7.4 mg/dl (8.5-10.1); Creatinine Clr Calc Pharmacy 50.2 ml/min; Est GFR (African American) 72.4 ml/min; Est GFR (Non-African American) 62.5 ml/min; Magnesium 1.5 mg/dl (1.7-2.4); Potassium 2.5 mmol/L (3.5-5.1); Uric Acid 4.9 mg/dl (2.6-7.2)
[2022-09-30] MEDS ORDERED: POTASSIUM CHLORIDE 20 MEQ/15 ML UDC PO STA (15:57)
[2022-09-30] MEDS ORDERED: POTASSIUM CHLORIDE / WTR 20 MEQ/100 ML PLCT IV STA (15:57)
[2022-09-30] MEDS: MAGNESIUM SULFATE / D5W 1 GM/100 ML BAG IV SCH ×4 (16:21→23:16)
[2022-09-30] MEDS: POTASSIUM CHLORIDE / WTR 20 MEQ/100 ML PLCT IV SCH ×2 (18:14→20:35)
[2022-09-30] MEDS: ACETAMINOPHEN 500 MG TAB PO PRN (21:34)
[2022-09-30] MEDS: AMIODARONE 200 MG TAB PO SCH (21:35)
[2022-09-30] MEDS: allopurinoL 300 MG TAB PO SCH (21:35)
[2022-09-30] MEDS: LEVALBUTEROL TARTRATE 15 GM HFA.AER.AD INH PRN (22:19)
[2022-10-01] MEDS: LEVALBUTEROL TARTRATE 15 GM HFA.AER.AD INH PRN ×2 (02:59→10:24)
[2022-10-01 05:01] LABS: Hematocrit (blood only) 30.1 % (34.1-44.9); Hemoglobin 10.5 g/dl (12.0-16.0); Mean Corpuscular Hemoglobin 29.3 pg (25.0-34.0); Mean Corpuscular Hgb Conc 34.9 g/dL (32.0-36.0); Mean Corpuscular Volume 84.1 fL (80.0-100.0); Mean Platelet Volume 10.8 fL (9.4-12.3); Platelet Count 109 K/uL (130-400); RDW Coefficient of Variation 16.1 % (11.5-14.5); RDW Standard Deviation 47.5 fL (36.4-46.3); Red Blood Count 3.58 M/uL (3.93-5.22); White Blood Count 6.63 K/ul (4.8-10.8)
[2022-10-01] MEDS: NSS + 20MEQ KCL 20 MEQ/1,000 ML BAG IV SCH ×3 (05:20→17:18)
[2022-10-01 05:38] LABS: Albumin Level 2.5 gm/dl (3.4-5.0); BUN Creatinine Ratio 42.5 (10-20); Bilirubin Direct 0.2 mg/dl (0-0.2); Bilirubin,Total 0.5 mg/dl (0.2-1.0); Calcium 7.7 mg/dl (8.5-10.1); Creatinine Clr Calc Pharmacy 60.7 ml/min; Est GFR (African American) 90.8 ml/min; Est GFR (Non-African American) 78.3 ml/min; Magnesium 2.2 mg/dl (1.7-2.4); Phosphorus 2.1 mg/dl (2.5-4.9); Potassium 2.9 mmol/L (3.5-5.1); Total Protein 4.6 gm/dl (6.0-8.3)
[2022-10-01 05:56] LABS: Basophils # (auto) 0.09 K/uL (0-0.2); Basophils % (auto) 1.4 %; Echinocytes 2+; Eosinophils # (auto) 0.02 K/uL (0-0.50); Eosinophils % (auto) 0.3 %; Immature Granulocytes # (auto) 0.51 K/uL (0.00-0.02); Immature Granulocytes % (auto) 7.7 %; Lymphocytes # (auto) 0.49 K/uL (1.2-3.4); Lymphocytes % (auto) 7.4 %; Monocytes # (auto) 0.65 K/uL (0.24-0.82); Monocytes % (auto) 9.8 %; Neutrophils # (auto) 4.87 K/uL (1.4-6.5); Neutrophils % (auto) 73.4 %; Polychromasia 1+; Toxic Granulation 2+
[2022-10-01] MEDS ORDERED: POTASSIUM PHOS 3 MMOL/1 ML INFUSION IV STA (07:13)
[2022-10-01 07:19] LABS: Estimated Average Glucose 151 mg/dl; Hemoglobin A1C 6.9 % (4.5-5.6)
[2022-10-01] MEDS ORDERED: CEFEPIME 1,000 MG in SYRINGE 0 ML IV SCH (08:00)
[2022-10-01] MEDS ORDERED: POTASSIUM PHOSPHATE 30 MMOL in SODIUM CHLORIDE 0.9% 500 ML IV ONE (08:00)
[2022-10-01] MEDS: POTASSIUM CHLORIDE / WTR 20 MEQ/100 ML PLCT IV SCH ×3 (08:10→12:24)
[2022-10-01] MEDS: PANTOprazole 40 MG TAB PO SCH (08:44)
[2022-10-01] MEDS: CHECK fentaNYL PATCH PLACEMENT SCH ×3 (08:48→16:35)
[2022-10-01] MEDS: AMIODARONE 200 MG TAB PO SCH ×2 (08:48→20:59)
[2022-10-01] MEDS: SODIUM CHLORIDE 1 GM TABLET PO SCH (08:48)
[2022-10-01] MEDS: ENOXAPARIN INJ 30 MG/0.3 ML SYR SQ SCH (08:50)
[2022-10-01] MEDS: INSULIN ASPART PER UNIT SC SCH ×4 (08:54→20:59)
[2022-10-01] MEDS ORDERED: FUROSEMIDE 20 MG TAB PO SCH (09:00)
--- NOTE | 2022-10-01 09:07 | Electrocardiogram Report ---
Test Reason : Blood Pressure : / mmHG Vent. Rate : 079 BPM Atrial Rate : 079 BPM P-R Int : 174 ms QRS Dur : 080 ms QT Int : 392 ms P-R-T Axes : -07 041 075 degrees QTc Int : 449 ms Normal sinus rhythm with occasional Premature atrial complexes Low voltage QRS Borderline ECG When compared with ECG of 30-SEP-2022 08:15, Vent. rate has decreased BY 63 BPM Supraventricular tachycardia no longer present Nonspecific ST abnormality no longer present Confirmed by Enzo Watson ([id number]) on 10/01/2022 9:06:31 AM Referred By: REFERRED SELF Confirmed By:Enzo Watson
--- NOTE | 2022-10-01 09:08 | Electrocardiogram Report ---
Test Reason : Blood Pressure : / mmHG Vent. Rate : 138 BPM Atrial Rate : 072 BPM P-R Int : 000 ms QRS Dur : 088 ms QT Int : 320 ms P-R-T Axes : 000 017 180 degrees QTc Int : 484 ms Supraventricular tachycardia Low voltage QRS Nonspecific ST and T wave abnormality Abnormal ECG When compared with ECG of 01-OCT-2022 06:22, Vent. rate has increased BY 59 BPM Supraventricular tachycardia now present Nonspecific ST and T wave abnormality now present Confirmed by Enzo Watson ([id number]) on 10/01/2022 9:07:35 AM Referred By: REFERRED SELF Confirmed By:Enzo Watson
[2022-10-01] MEDS: POTASSIUM CHLORIDE 20 MEQ/15 ML UDC PO SCH ×2 (10:20→21:02)
[2022-10-01] MEDS ORDERED: AMIODARONE / D5W 150 MG/100 ML BAG IV STA (10:48)
[2022-10-01] MEDS ORDERED: 0.2 MICRON FILTER SET 1 EACH IV STA (10:48)
[2022-10-01] MEDS ORDERED: STAT IV Infusion **Titration per Protocol STA (10:48)
[2022-10-01] MEDS ORDERED: AMIODARONE IV BOLUS & DRIP IV STA (10:48)
[2022-10-01] MEDS ORDERED: AMIODARONE / D5W 360 MG/200 ML BAG IV ONE (10:58)
--- NOTE | 2022-10-01 12:10 | Hospitalist Progress Note ---
Date of Service October 01, 2022 Assessment & Plan (1) E coli enteritis: Plan: Diarrhea started ~09/27, and patient reports it getting progressively worse. - Start azithromycin 500 mg PO daily x 3 days (monitor QTc) - Imodium PRN (discussed with pharmacy and since there is no evidence of Shiga toxin, this is ok) (2) Acute UTI: Plan: Patient diagnosed with urinary tract infection outpatient and failed treatment with Nitrofurantoin (Macrobid). - Continue ceftriaxone (3) Weakness: Plan: Patient with widespread metastatic disease with small cell lung cancer primary. Now with diarrhea, dehydration, and electrolytes derangements. - Will order PT/OT evaluation and treatment - Continue to replete electrolytes and follow per protocol (4) SVT (supraventricular tachycardia): Plan: Multiple episodes of SVT during the patient's last admission in August 2022. - Currently on amiodarone 200 mg p.o. BID for suppression. -> On 10/01, put her back on amiodarone IV as her runs of SVT were becoming predominant (more SVT than sinus). Will monitor. (5) Cancer related pain: Plan: - Continue home regimen of pain medicine - Palliative medicine has been involved and we will ask them to engage during this hospital stay (6) Small cell lung cancer: Plan: Recent diagnosis by liver biopsy in with lung primary August 2022. Widespread metastasis to liver, bone, brain. - Continue management [facility] well as Dr. Padmini Romero from [facility] [place] radiation oncology -> Discussed with Dr. Romero on 10/01. Defer radiation therapy today. Will call her down on Tuesday (10/04) if she is improving. (7) Type 2 diabetes mellitus: Plan: A1c was 6.9% this admission. Patient is not on home insulin. - Will hold patient's metformin during this hospital stay and place patient on NovoLog sliding scale insulin with [facility] (8) Elevated troponin: Plan: No chest pain or tightness. No changes on EKG. Most likely secondary to ischemic demand. - Serial troponins stable at 22 - 30. No concern for ACS. (9) History of cigarette smoking: Plan: 35-znyu-oiol smoking history. Quit smoking at age 71. History of COPD but I am unable to locate pulmonary function testing. Patient has rescue inhaler at home with levalbuterol (Xopenex) and no other pulmonary treatment. - Treat supportively and maintain SaO2 between 88 and 92% due to pack-year history (10) Hyperlipidemia: Plan: Patient previous was on a statin. This is been discontinued as it is contraindicated with amiodarone treatment. - Continue heart healthy diet (11) Mechanical deep vein thrombosis (DVT) prophylaxis in place: Plan: Patient with history of SVT and widespread malignancy with metastasis. - Lovenox 40 mg SQ daily Patient is a DNR/DNI but would agree to electrical cardioversion or IV medicati ons to treat her arrhythmias. Admission and Anticipated Discharge Date Admission Date: September 30, 2022 Subjective Stable today, but still having diarrhea. Otherwise, no focal complaints. Still weak. Reports no fevers/chills, chest pain, shortness of breath, abdominal pain, nausea, or vomiting. Physical Exam Constitutional: WD/WN, vitals as above + acute distress Eyes: EOM intact bilaterally; no conjunctival abnormality ENMT: external ear and nose normal, oropharynx normal Neck: trachea midline, no thyromegaly normal visual inspection Respiratory: normal respiratory effort, lungs clear to auscultation no respiratory distress Cardiovascular: Rate/Rhythm: regular rate and + tachycardic Heart Sounds: normal S1 and normal S2 Gastrointestinal (Abdomen): Inspection/Auscultation: abdomen normal to inspection; abdomen not distended Musculoskeletal: no cyanosis or clubbing, extremities motor strength 5/5 Skin: no rashes, warm and dry Neurologic: moves all extremities and awake Psychiatric: Orientation: alert, oriented to person and cooperative Results & Data Results & Data ([facility]) Vital Signs (Past 12 Hours) Vital Signs Temp Pulse Pulse Resp BP Pulse Ox O2 Del Method 10/01/22 07:00 80 10/01/22 10:25 80 18 97 Room Air 10/01/22 11:15 140 H 116/76 10/01/22 06:59 36.4 C L 138 H 20 103/69 97 Room Air 10/01/22 03:45 36.7 C 110 H 20 120/69 96 Room Air 10/01/22 03:02 22 94 Room Air 10/01/22 00:00 95 H PG Care Time/CCT Total # of Minutes Spent Total Time Spent with Patient: Total time spent is greater than 50% in coordination of care (as documented) at patient's floor/unit and/or counseling patient: Coding Level of Care Code 46441 Subseq Hosp Care Lvl 3 Diagnoses E coli enteritis A04.4 Acute UTI N39.0 Weakness R53.1 SVT (supraventricular tachycardia) I47.1 Cancer related pain G89.3 Small cell lung cancer C34.90 Type 2 diabetes mellitus E11.9 Elevated troponin R77.8 History of cigarette smoking Z87.891 Hyperlipidemia E78.5 Mechanical deep vein thrombosis (DVT) prophylaxis in place Z78.9
[2022-10-01] MEDS: AZITHROMYCIN 250 MG TAB PO SCH (12:54)
[2022-10-01] MEDS: LOPERAMIDE HCL 2 MG CAP PO PRN ×2 (15:00→16:34)
[2022-10-01] MEDS: AMIODARONE / D5W 360 MG/200 ML BAG IV SCH (17:04)
[2022-10-01 18:22] LABS: BUN Creatinine Ratio 36.1 (10-20); Calcium 7.5 mg/dl (8.5-10.1); Creatinine Clr Calc Pharmacy 72.6 ml/min; Est GFR (African American) 99.9 ml/min; Est GFR (Non-African American) 86.2 ml/min; Magnesium 1.7 mg/dl (1.7-2.4); Potassium 3.7 mmol/L (3.5-5.1)
[2022-10-01] MEDS: cefTRIAXone SODIUM 1,000 MG in DEXTROSE 5% AD-VAN 50 ML IV SCH (20:58)
[2022-10-01] MEDS: busPIRone 5 MG TAB PO PRN (21:02)
[2022-10-01] MEDS: allopurinoL 300 MG TAB PO SCH (21:02)
[2022-10-02] MEDS: CHECK fentaNYL PATCH PLACEMENT SCH ×4 (00:29→22:30)
[2022-10-02] MEDS: LOPERAMIDE HCL 2 MG CAP PO PRN ×2 (00:44→04:53)
[2022-10-02] MEDS: DICLOFENAC SOD 1% GEL 100 GM TUBE EXT SCH ×3 (01:32→21:32)
[2022-10-02] MEDS: NSS + 20MEQ KCL 20 MEQ/1,000 ML BAG IV SCH (03:18)
[2022-10-02] MEDS: LEVALBUTEROL TARTRATE 15 GM HFA.AER.AD INH PRN (03:21)
[2022-10-02] MEDS: AMIODARONE / D5W 360 MG/200 ML BAG IV SCH (04:52)
[2022-10-02 06:10] LABS: Hematocrit (blood only) 27.9 % (34.1-44.9); Hemoglobin 9.7 g/dl (12.0-16.0); Mean Corpuscular Hemoglobin 29.4 pg (25.0-34.0); Mean Corpuscular Hgb Conc 34.8 g/dL (32.0-36.0); Mean Corpuscular Volume 84.5 fL (80.0-100.0); Mean Platelet Volume 10.9 fL (9.4-12.3); Platelet Count 110 K/uL (130-400); RDW Coefficient of Variation 16.7 % (11.5-14.5); White Blood Count 6.99 K/ul (4.8-10.8)
[2022-10-02 06:30] LABS: Albumin Globulin Ratio 1.1 (0.9-2); Albumin Level 2.4 gm/dl (3.4-5.0); BUN Creatinine Ratio 32.7 (10-20); Bilirubin,Total 0.4 mg/dl (0.2-1.0); Calcium 7.1 mg/dl (8.5-10.1); Creatinine Clr Calc Pharmacy 90.3 ml/min; Est GFR (African American) 107.4 ml/min; Est GFR (Non-African American) 92.7 ml/min; Globulin 2.2 gm/dl (2.5-4.0); Magnesium 1.4 mg/dl (1.7-2.4); Phosphorus 1.9 mg/dl (2.5-4.9); Potassium 4.2 mmol/L (3.5-5.1); Total Protein 4.6 gm/dl (6.0-8.3)
[2022-10-02 07:33] LABS: Lymphocytes # (manual) 0.63 K/uL (1.2-3.4); Lymphocytes % (manual) 9 %; Metamyelocytes # (manual) 0.56 K/uL (0-0); Metamyelocytes % (manual) 8 %; Monocytes # (manual) 0.35 K/uL (0.24-0.82); Monocytes % (manual) 5 %; Myelocytes # (manual) 0.21 K/uL (0-0); Myelocytes % (manual) 3 %; Neutrophils # (manual) 5.24 K/uL (1.4-6.5); Neutrophils % (manual) 75 %
[2022-10-02 07:34] LABS: Acanthocytes 1+; Polychromasia 1+; Toxic Granulation 2+
[2022-10-02] MEDS: SODIUM CHLORIDE 1 GM TABLET PO SCH (08:28)
[2022-10-02] MEDS: PANTOprazole 40 MG TAB PO SCH (08:29)
[2022-10-02] MEDS: AZITHROMYCIN 250 MG TAB PO SCH (08:30)
[2022-10-02] MEDS: ENOXAPARIN INJ 30 MG/0.3 ML SYR SQ SCH (08:30)
[2022-10-02] MEDS: busPIRone 5 MG TAB PO PRN (09:00)
[2022-10-02] MEDS: INSULIN ASPART PER UNIT SC SCH ×4 (09:25→21:32)
[2022-10-02] MEDS: AMIODARONE 200 MG TAB PO SCH ×2 (10:07→21:30)
[2022-10-02] MEDS ORDERED: POTASSIUM PHOS 3 MMOL/1 ML INFUSION IV STA (12:51)
[2022-10-02] MEDS ORDERED: POTASSIUM PHOSPHATE 30 MMOL in SODIUM CHLORIDE 0.9% 500 ML IV ONE (13:00)
[2022-10-02] MEDS: MAGNESIUM SULFATE / D5W 1 GM/100 ML BAG IV SCH ×4 (13:08→19:09)
--- NOTE | 2022-10-02 16:37 | Hospitalist Progress Note ---
Date of Service October 02, 2022 Assessment & Plan (1) E coli enteritis: Plan: Diarrhea started ~09/27, and patient reports it getting progressively worse. Stool PCR on 09/30 showed entero-aggressive E. coli. - Start azithromycin 500 mg PO daily x 3 days (monitor QTc: 475 on 10/02) - Imodium PRN (discussed with pharmacy and since there is no evidence of Shiga toxin, this is ok) - Improving today. Last BM overnight. (2) Acute UTI: Plan: Patient diagnosed with urinary tract infection outpatient and failed treatment with Nitrofurantoin (Macrobid). - Continue ceftriaxone x 3 days. (3) Weakness: Plan: Patient with widespread metastatic disease with small cell lung cancer primary. Now with diarrhea, dehydration, and electrolytes derangements. - Will order PT/OT evaluation and treatment - Continue to replete electrolytes and follow per protocol (4) SVT (supraventricular tachycardia): Plan: Multiple episodes of SVT during the patient's last admission in August 2022. - Currently on amiodarone 200 mg p.o. BID for suppression. -> On 10/01, put her back on amiodarone IV as her runs of SVT were becoming predominant (more SVT than sinus). This has resolved. Return to PO amiodarone on 10/02. (5) Cancer related pain: Plan: - Continue home regimen of pain medicine - Palliative medicine has been involved and we will ask them to engage during this hospital stay (6) Small cell lung cancer: Plan: Recent diagnosis by liver biopsy in with lung primary August 2022. Widespread metastasis to liver, bone, brain. - Continue management [facility] well as Dr. Padmini Romero from [facility] [place] radiation oncology -> Discussed with Dr. Romero on 10/01. Defer radiation therapy today. Will call her down on Tuesday (10/04). (7) Type 2 diabetes mellitus: Plan: A1c was 6.9% this admission. Patient is not on home insulin. - Will hold patient's metformin during this hospital stay and place patient on NovoLog sliding scale insulin with [facility] (8) Elevated troponin: Plan: No chest pain or tightness. No changes on EKG. Most likely secondary to ischemic demand. - Serial troponins stable at 22 - 30. No concern for ACS. (9) History of cigarette smoking: Plan: 75-quio-dinv smoking history. Quit smoking at age 71. History of COPD but I am unable to locate pulmonary function testing. Patient has rescue inhaler at home with levalbuterol (Xopenex) and no other pulmonary treatment. - Treat supportively and maintain SaO2 between 88 and 92% due to pack-year hist ory (10) Hyperlipidemia: Plan: Patient previous was on a statin. This is been discontinued as it is contraindicated with amiodarone treatment. - Continue heart healthy diet (11) Mechanical deep vein thrombosis (DVT) prophylaxis in place: Plan: Patient with history of SVT and widespread malignancy with metastasis. - Lovenox 30 mg SQ daily Patient is a DNR/DNI but would agree to electrical cardioversion or IV medications to treat her arrhythmias. Admission and Anticipated Discharge Date Admission Date: September 30, 2022 Subjective Doing well today. Much more energy. Feels well. Reports no fevers/chills, chest pain, shortness of breath, abdominal pain, nausea, or vomiting. Physical Exam Constitutional: WD/WN, vitals as above Eyes: EOM intact bilaterally; no conjunctival abnormality ENMT: external ear and nose normal, oropharynx normal Neck: trachea midline, no thyromegaly normal visual inspection Respiratory: normal respiratory effort, lungs clear to auscultation no respiratory distress Cardiovascular: Rate/Rhythm: regular rate and regular rhythm Heart Sounds: normal S1 and normal S2 Gastrointestinal (Abdomen): Inspection/Auscultation: abdomen normal to inspection; abdomen not distended Musculoskeletal: no cyanosis or clubbing, extremities motor strength 5/5 Skin: no rashes, warm and dry Neurologic: moves all extremities and awake Psychiatric: Orientation: alert, oriented to person and cooperative Results & Data Results & Data ([facility]) Vital Signs (Past 12 Hours) Vital Signs Temp Pulse Pulse Resp BP Pulse Ox O2 Del Method 10/02/22 16:21 36.4 C L 82 18 104/68 94 Room Air 10/02/22 16:15 85 10/02/22 11:53 36.7 C 74 19 105/64 97 Room Air 10/02/22 07:40 79 10/02/22 07:06 36.4 C L 80 18 102/63 97 Room Air PG Care Time/CCT Total # of Minutes Spent Total Time Spent with Patient: Total time spent is greater than 50% in coordination of care (as documented) at patient's floor/unit and/or counseling patient: Coding Level of Care Code 32318 Subseq Hosp Care Lvl 3 Diagnoses E coli enteritis A04.4 Acute UTI N39.0 Weakness R53.1 SVT (supraventricular tachycardia) I47.1 Cancer related pain G89.3 Small cell lung cancer C34.90 Type 2 diabetes mellitus E11.9 Elevated troponin R77.8 History of cigarette smoking Z87.891 Hyperlipidemia E78.5 Mechanical deep vein thrombosis (DVT) prophylaxis in place Z78.9
[2022-10-02] MEDS ORDERED: fentaNYL 25 MCG/HR TDSY TD SCH (21:00)
[2022-10-02] MEDS: cefTRIAXone SODIUM 1,000 MG in DEXTROSE 5% AD-VAN 50 ML IV SCH (21:29)
[2022-10-02] MEDS: allopurinoL 300 MG TAB PO SCH (21:31)
[2022-10-03] MEDS: busPIRone 5 MG TAB PO PRN ×4 (00:10→23:28)
[2022-10-03] MEDS: LEVALBUTEROL TARTRATE 15 GM HFA.AER.AD INH PRN (00:51)
[2022-10-03 07:18] LABS: Creatinine Clr Calc Pharmacy 126.4 ml/min; Est GFR (Non-African American) 103.5 ml/min; Magnesium 1.7 mg/dl (1.7-2.4); Potassium 3.8 mmol/L (3.5-5.1)
[2022-10-03 07:19] LABS: Hemoglobin 10.1 g/dl (12.0-16.0); Mean Corpuscular Hgb Conc 34.8 g/dL (32.0-36.0); Mean Corpuscular Volume 83.3 fL (80.0-100.0); Mean Platelet Volume 11.2 fL (9.4-12.3); Platelet Count 132 K/uL (130-400); RDW Coefficient of Variation 16.2 % (11.5-14.5); RDW Standard Deviation 48.2 fL (36.4-46.3); Red Blood Count 3.48 M/uL (3.93-5.22); White Blood Count 7.63 K/ul (4.8-10.8)
[2022-10-03] MEDS ORDERED: STAT IV STA (07:35)
[2022-10-03 07:43] LABS: Acanthocytes 1+; Lymphocytes # (manual) 0.53 K/uL (1.2-3.4); Lymphocytes % (manual) 7 %; Metamyelocytes # (manual) 0.08 K/uL (0-0); Metamyelocytes % (manual) 1 %; Monocytes # (manual) 0.31 K/uL (0.24-0.82); Monocytes % (manual) 4 %; Myelocytes # (manual) 0.46 K/uL (0-0); Myelocytes % (manual) 6 %; Neutrophils # (manual) 6.26 K/uL (1.4-6.5); Neutrophils % (manual) 82 %; Toxic Granulation 2+
[2022-10-03] MEDS ORDERED: CALCIUM GLUCONATE 10% 2,000 MG in DEXTROSE 5% 50 ML IV ONE (07:45)
[2022-10-03] MEDS: ENOXAPARIN INJ 30 MG/0.3 ML SYR SQ SCH (08:14)
[2022-10-03] MEDS: AMIODARONE 200 MG TAB PO SCH ×2 (08:14→20:07)
[2022-10-03] MEDS: DICLOFENAC SOD 1% GEL 100 GM TUBE EXT SCH ×2 (08:14→20:23)
[2022-10-03] MEDS: PANTOprazole 40 MG TAB PO SCH (08:14)
[2022-10-03] MEDS: SODIUM CHLORIDE 1 GM TABLET PO SCH (08:14)
[2022-10-03] MEDS: AZITHROMYCIN 250 MG TAB PO SCH (08:14)
[2022-10-03] MEDS: INSULIN ASPART PER UNIT SC SCH ×4 (08:48→20:23)
[2022-10-03] MEDS: CHECK fentaNYL PATCH PLACEMENT SCH ×3 (09:21→23:32)
[2022-10-03] MEDS: LOPERAMIDE HCL 2 MG CAP PO PRN (11:19)
--- NOTE | 2022-10-03 12:45 | Hospitalist Progress Note ---
Date of Service October 03, 2022 Assessment & Plan (1) E coli enteritis: Plan: Diarrhea started ~09/27, and patient reports it getting progressively worse. Stool PCR on 09/30 showed entero-aggressive E. coli. - Started azithromycin 500 mg PO daily x 3 days (monitor QTc: 475 on 10/02) - Imodium PRN (discussed with pharmacy and since there is no evidence of Shiga toxin, this is ok) - Improved. Having some small BMs, but no large volume of diarrhea. - Electrolytes improving. Replete PRN. Dispo for tomorrow: 1) Will get radiation therapy. 2) Work with PT/OT. 3) Will speak with her usual palliative care provider (Ms. Shaw). - Maybe home after these 3 things. (2) Acute UTI: Plan: Patient diagnosed with urinary tract infection outpatient and failed treatment with Nitrofurantoin (Macrobid). - Continued ceftriaxone x 3 days. Finished. (3) Weakness: Plan: Patient with widespread metastatic disease with small cell lung cancer primary. Now with diarrhea, dehydration, and electrolytes derangements. - Ordered PT/OT evaluation and treatment - Continue to replete electrolytes and follow per protocol (4) SVT (supraventricular tachycardia): Plan: Multiple episodes of SVT during the patient's last admission in August 2022. - Currently on amiodarone 200 mg p.o. BID for suppression. -> On 10/01, put her back on amiodarone IV as her runs of SVT were becoming predominant (more SVT than sinus; no afib). This has resolved. Returned to PO amiodarone on 10/02. (5) Cancer related pain: Plan: - Continue home regimen of pain medicine - Palliative medicine has been involved and we will ask them to engage during this hospital stay (6) Small cell lung cancer: Plan: Recent diagnosis by liver biopsy in with lung primary August 2022. Widespread metastasis to liver, bone, brain. - Continue management [facility] as Dr. Padmini Romero from [facility] [place] radiation oncology -> Discussed with Dr. Romero on 10/01. Defer radiation therapy today. Will call her down on Tuesday (10/04). (7) Type 2 diabetes mellitus: Plan: A1c was 6.9% this admission. Patient is not on home insulin. - Will hold patient's metformin during this hospital stay and place patient on NovoLog sliding scale insulin with [facility]. Sugars 90 - 110 in last 24 hours. No change. (8) Elevated troponin: Plan: No chest pain or tightness. No changes on EKG. Most likely secondary to ischemic demand. - Serial troponins stable at 22 - 30. No concern for ACS. (9) History of cigarette smoking: Plan: 20-ztfn-rern smoking history. Quit smoking at age 71. History of COPD but I am unable to locate pulmonary function testing. Patient has rescue inhaler at home with levalbuterol (Xopenex) and no other pulmonary treatment. - Treat supportively and maintain SaO2 between 88 and 92% due to pack-year history (10) Hyperlipidemia: Plan: Patient previous was on a statin. This is been discontinued as it is contraindicated with amiodarone treatment. - Continue heart healthy diet (11) Mechanical deep vein thrombosis (DVT) prophylaxis in place: Plan: Patient with history of SVT and widespread malignancy with metastasis. - Lovenox 30 mg SQ daily Patient is a DNR/DNI but would agree to electrical cardioversion or IV medications to treat her arrhythmias. Admission and Anticipated Discharge Date Admission Date: September 30, 2022 Subjective Much more anxious today. Reports she had a terrible night and was very anxious. Feels much weaker today. Physical Exam Constitutional: WD/WN, vitals as above + acute distress Eyes: EOM intact bilaterally; no conjunctival abnormality ENMT: external ear and nose normal, oropharynx normal Neck: trachea midline, no thyromegaly normal visual inspection Respiratory: normal respiratory effort, lungs clear to auscultation no respiratory distress Cardiovascular: Rate/Rhythm: regular rate and regular rhythm Heart Sounds: normal S1 and normal S2 Gastrointestinal (Abdomen): Inspection/Auscultation: abdomen normal to inspection; abdomen not distended Musculoskeletal: no cyanosis or clubbing, extremities motor strength 5/5 Skin: no rashes, warm and dry Neurologic: moves all extremities and awake Psychiatric: Orientation: alert, oriented to person and cooperative Results & Data Results & Data ([facility]) Vital Signs (Past 12 Hours) Vital Signs Temp Pulse Pulse Resp BP Pulse Ox O2 Del Method 10/03/22 12:05 36.7 C 88 19 103/60 96 Room Air 10/03/22 07:15 83 10/03/22 07:15 Room Air 10/03/22 07:00 36.8 C 84 18 106/67 95 Room Air 10/03/22 03:48 36.4 C L 90 18 111/60 93 Room Air 10/03/22 00:51 82 22 95 Room Air PG Care Time/CCT Total # of Minutes Spent Total Time Spent with Patient: Total time spent is greater than 50% in coordination of care (as documented) at patient's floor/unit and/or counseling patient: Coding Level of Care Code 91669 Subseq Hosp Care Lvl 3 Diagnoses E coli enteritis A04.4 Acute UTI N39.0 Weakness R53.1 SVT (supraventricular tachycardia) I47.1 Cancer related pain G89.3 Small cell lung cancer C34.90 Type 2 diabetes mellitus E11.9 Elevated troponin R77.8 History of cigarette smoking Z87.891 Hyperlipidemia E78.5 Mechanical deep vein thrombosis (DVT) prophylaxis in place Z78.9
[2022-10-03] MEDS: HEPARIN 100 UNIT/ML 5ML FLUSH FLUSH PRN (15:13)
[2022-10-03] MEDS: allopurinoL 300 MG TAB PO SCH (20:07)
--- NOTE | 2022-10-03 21:57 | Electrocardiogram Report ---
Test Reason : Blood Pressure : / mmHG Vent. Rate : 072 BPM Atrial Rate : 072 BPM P-R Int : 156 ms QRS Dur : 076 ms QT Int : 434 ms P-R-T Axes : 019 037 047 degrees QTc Int : 475 ms Normal sinus rhythm Low voltage QRS Septal infarct , age undetermined Abnormal ECG When compared with ECG of 01-OCT-2022 07:44, Vent. rate has decreased BY 66 BPM Septal infarct is now Present ST no longer depressed in Anterior leads Nonspecific T wave abnormality no longer evident in Inferior leads Nonspecific T wave abnormality no longer evident in Lateral leads Confirmed by Robinson Florentino ([id number]) on 10/03/2022 9:57:24 PM Referred By: REFERRED SELF Confirmed By:Robinson Florentino
[2022-10-04] MEDS: LEVALBUTEROL TARTRATE 15 GM HFA.AER.AD INH PRN (01:51)
[2022-10-04] MEDS: busPIRone 5 MG TAB PO PRN (03:04)
[2022-10-04 06:22] LABS: Hematocrit (blood only) 29.4 % (34.1-44.9); Hemoglobin 10.3 g/dl (12.0-16.0); Mean Corpuscular Hemoglobin 29.5 pg (25.0-34.0); Mean Corpuscular Volume 84.2 fL (80.0-100.0); Platelet Count 173 K/uL (130-400); RDW Coefficient of Variation 16.1 % (11.5-14.5); RDW Standard Deviation 47.8 fL (36.4-46.3); Red Blood Count 3.49 M/uL (3.93-5.22); White Blood Count 7.21 K/ul (4.8-10.8)
[2022-10-04 06:48] LABS: Albumin Level 2.3 gm/dl (3.4-5.0); BUN Creatinine Ratio 15.2 (10-20); Bilirubin,Total 0.5 mg/dl (0.2-1.0); Creatinine Clr Calc Pharmacy 133.9 ml/min; Est GFR (African American) 122.3 ml/min; Est GFR (Non-African American) 105.5 ml/min; Globulin 2.3 gm/dl (2.5-4.0); Magnesium 1.3 mg/dl (1.7-2.4); Phosphorus 2.6 mg/dl (2.5-4.9); Potassium 3.2 mmol/L (3.5-5.1); Total Protein 4.6 gm/dl (6.0-8.3)
[2022-10-04] MEDS: PANTOprazole 40 MG TAB PO SCH (08:00)
[2022-10-04] MEDS: SODIUM CHLORIDE 1 GM TABLET PO SCH (08:00)
[2022-10-04] MEDS: AMIODARONE 200 MG TAB PO SCH ×2 (08:01→21:13)
[2022-10-04] MEDS: DICLOFENAC SOD 1% GEL 100 GM TUBE EXT SCH ×2 (08:01→21:13)
[2022-10-04] MEDS: ENOXAPARIN INJ 30 MG/0.3 ML SYR SQ SCH (08:01)
[2022-10-04] MEDS: INSULIN ASPART PER UNIT SC SCH ×4 (08:46→21:12)
[2022-10-04] MEDS: CHECK fentaNYL PATCH PLACEMENT SCH ×2 (08:47→16:35)
--- NOTE | 2022-10-04 09:08 | Hospitalist Progress Note ---
Date of Service October 04, 2022 Assessment & Plan (1) E coli enteritis: Plan: diarrhea has resolved treated E cOLI enteritis with azithromycic 1) Will get radiation therapy today. 2) Work with PT/OT- may need SNF as v weak .3)I have informed Ms Shaw , palliative care. (2) Hypokalemia: Plan: replenish po- watch BMP (3) Hypomagnesemia: Plan: REeplenish po- watch Mg (4) Acute UTI: Plan: Patient diagnosed with urinary tract infection outpatient and failed treatment with Nitrofurantoin (Macrobid). ceftriaxone x 3 days. (Finished.) (5) Weakness: Plan: Patient with widespread metastatic disease with small cell lung cancer primary. Now with diarrhea, dehydration, and electrolytes derangements. - Ordered PT/OT evaluation and treatment - Continue to replete electrolytes and follow per protocol (6) SVT (supraventricular tachycardia): Plan: Multiple episodes of SVT during the patient's last admission in August 2022. - Currently on amiodarone 200 mg p.o. BID for suppression. -> On 10/01, put her back on amiodarone IV as her runs of SVT were becoming predominant (more SVT than sinus; no afib). This has resolved. Returned to PO amiodarone on 10/02. (7) Cancer related pain: Plan: - Continue home regimen of pain medicine - Palliative medicine has been involved and we will ask them to engage during this hospital stay (8) Small cell lung cancer: Plan: Recent diagnosis by liver biopsy in with lung primary August 2022. Widespread metastasis to liver, bone, brain. - Continue management with Dr[facility] Sampson [facility] well as Dr. Padmini Romero from [facility] [place] oncology -> Discussed with Dr. Romero on 10/01. Defer radiation therapy today. Will call her down on Tuesday (10/04). (9) Type 2 diabetes mellitus: Plan: A1c was 6.9% this admission. Patient is not on home insulin. - Will hold patient's metformin during this hospital stay and place patient on NovoLog sliding scale insulin with BSG ACHS. Sugars 90 - 110 in last 24 hours. No change. (10) Elevated troponin: Plan: No chest pain or tightness. No changes on EKG. Most likely secondary to ischemic demand. - Serial troponins stable at 22 - 30. No concern for ACS. (11) History of cigarette smoking: Plan: 09-izfi-sbfl smoking history. Quit smoking at age 71. History of COPD but I am unable to locate pulmonary function testing. Patient has rescue inhaler at home with levalbuterol (Xopenex) and no other pulmonary treatment. - Treat supportively and maintain SaO2 between 88 and 92% due to pack-year history (12) Hyperlipidemia: Plan: Patient previous was on a statin. This is been discontinued as it is contraindicated with amiodarone treatment. - Continue heart healthy diet (13) Mechanical deep vein thrombosis (DVT) prophylaxis in place: Plan: Patient with history of SVT and widespread malignancy with metastasis. - Lovenox 30 mg SQ daily Patient is a DNR/DNI but would agree to electrical cardioversion or IV medications to treat her arrhythmias. Admission and Anticipated Discharge Date Admission Date: September 30, 2022 Subjective at 0850, lying in bed, no diarrhea , last BM 3 days ago she says RN noted v small BM MILD NAUSEA, MILD MEMORY PROBLEMS V WEAK ( came w acute weakness , could not walk back from bathroom w walker -dx UTI here) Mild dysuria kaye dmission No sleep is her c/c today which she says contributes to weakness No pain Physical Exam Physical Exam: obese , pleasant, tired looking, well oriented to person, month and place, lucid historian moist tongue anicteric sclera thin cropped hair Chest CTA CVS: S1 S2 telemetry artefact 94/min Abd- soft, non tender FUSE CUTTER : 5/5 elbow flexors, and toe plantar flexors Normal insight , and judgement, appropriate affect Results & Data Results & Data ([facility]) Vital Signs (Past 12 Hours) Vital Signs Temp Pulse Pulse Pulse Pulse Resp BP 10/04/22 07:49 36.7 C 78 20 127/78 10/04/22 03:07 36.5 C 78 18 121/67 10/04/22 01:55 77 22 10/04/22 00:18 88 10/03/22 23:09 36.5 C 82 18 110/64 10/03/22 21:30 Pulse Ox O2 Del Method 10/04/22 07:49 94 Room Air 10/04/22 03:07 94 Room Air 12/19/22 01:55 96 Room Air 10/04/22 00:18 10/03/22 23:09 94 Room Air 10/03/22 21:30 Room Air Laboratory Results Abnormal lab results 10/03/22 10/04/22 10/04/22 Range/Units 11:50 05:35 05:35 RBC 3.49 L (3.93-5.22) M/uL Hgb 10.3 L (12.0-16.0) g/dl Hct 29.4 L (34.1-44.9) % RDW Std Deviation 47.8 H (36.4-46.3) fL RDW Coeff of Charlie 16.1 H (11.5-14.5) % Potassium 3.2 L (3.5-5.1) mmol/L BUN 5 L (6-23) mg/dl Creatinine 0.33 L (0.6-1.2) mg/dl Glucose 102 H (70-99(Fasting)) mg/dl POC Glucose 106 H (70-99) mg/dl Calcium 7.0 L (8.5-10.1) mg/dl Magnesium 1.3 L (1.7-2.4) mg/dl Total Protein 4.6 L (6.0-8.3) gm/dl Albumin 2.3 L (3.4-5.0) gm/dl Globulin 2.3 L (2.5-4.0) gm/dl Medications Administered Home Medications Medication Instructions Recorded Confirmed Last Taken Lactobacillus rhamnosus GG 10 1 cap PO QAM 10/15/19 09/20/22 Unknown billion cell capsule (Culturelle) acetaminophen 500 mg tablet 1,000 mg PO QID PRN Fever Or Pain 10/15/19 09/20/22 Unknown (Tylenol Extra Strength) omeprazole 20 mg capsule,delayed 20 mg PO QAM #90 caps 10/21/21 09/20/22 Unknown release blood sugar diagnostic (OneTouch #100 ea 11/16/21 09/20/22 Unknown Verio test strips) Suni[employer] Delica Lancets 33 gauge #100 ea 07/19/22 09/20/22 Unknown (lancets) metformin 500 mg tablet,extended 1,000 mg PO BID 08/17/22 09/20/22 Unknown release 24 hr allopurinol 300 mg tablet 300 mg PO HS #30 tabs 08/27/22 09/20/22 Unknown amiodarone 200 mg tablet 200 mg PO BID #60 tabs 08/27/22 09/20/22 Unknown buspirone 5 mg tablet 5 mg PO TID PRN anxiety #30 tabs 08/27/22 09/20/22 Unknown morphine 15 mg immediate release 15 mg PO Q4H PRN pain #30 tabs 08/27/22 09/20/22 Unknown tablet levalbuterol tartrate 45 2 puff inhalation Q6H PRN 08/28/22 09/20/22 Unknown mcg/actuation aerosol inhaler cough/wheeze/shortness of breath (Xopenex HFA) #1 g sodium chloride 1 gram tablet 1,000 mg PO DAILY #30 tabs 08/28/22 09/20/22 Unknown cholecalciferol (vitamin D3) 50 50 mcg PO DAILY 09/20/22 09/20/22 Unknown mcg (2,000 unit) capsule fentanyl 25 mcg/hr transdermal 1 patch transdermal Q72H 09/27/22 09/27/22 Unknown patch furosemide 20 mg tablet (Lasix) 10 mg PO DAILY 09/27/22 09/27/22 Unknown lorazepam 0.5 mg tablet (Ativan) 0.5 mg PO TID PRN 09/27/22 09/27/22 Unknown Active Medications Generic Name Dose Route Start Last Admin Trade Name Freq PRN Reason Stop Dose Admin Acetaminophen 1,000 mg 09/30/22 11:55 09/30/22 21:34 Acetaminophen 500 Mg Tab PO 10/30/22 11:54 1,000 mg QID PRN Administration Fever Or Pain Allopurinol 300 mg 09/30/22 21:00 10/03/22 20:07 Allopurinol 300 Mg Tab PO 10/30/22 20:59 300 mg HS ERNESTO Administration Amiodarone HCl 200 mg 09/30/22 21:00 10/04/22 08:01 Amiodarone 200 Mg Tab PO 10/30/22 20:59 200 mg BID ERNESTO Administration Buspirone HCl 5 mg 09/30/22 11:55 10/04/22 03:04 Buspirone 5 Mg Tab PO 10/30/22 11:54 5 mg TID PRN Administration anxiety Diclofenac Sodium 1 gm 10/02/22 01:00 10/04/22 08:01 Diclofenac Sod 1% Gel 100 Gm Tube EXT 11/01/22 00:59 1 gm BID ERNESTO Administration Protocol Enoxaparin Sodium 30 mg 09/30/22 11:55 10/04/22 08:01 Enoxaparin Inj 30 Mg/0.3 Ml Syr SQ 10/30/22 11:54 30 mg QAM ERNESTO Administration Fentanyl 25 mcg 10/02/22 21:00 10/02/22 21:36 Fentanyl 25 Mcg/Hr Tdsy TD 10/16/22 20:59 25 mcg Q72H ERNESTO Administration Heparin Sodium (Porcine) 5 ml 10/02/22 01:55 10/03/22 15:13 Heparin 100 Unit/Ml 5ml Flush FLUSH 11/01/22 01:54 5 ml PRN PRN Administration Flush Insulin Aspart 0 units 09/30/22 11:55 10/04/22 08:46 Insulin Aspart Per Unit SC 10/30/22 11:54 Not Given ACHS ERNESTO Levalbuterol HCl 2 puffs 09/30/22 11:55 10/04/22 01:51 Levalbuterol Tartrate 15 Gm Hfa.Aer.Ad INH 10/30/22 11:54 2 puffs Q6R PRN Administration cough/wheeze/shortness of david Protocol Loperamide HCl 2 mg 10/01/22 17:12 10/03/22 11:19 Loperamide Hcl 2 Mg Cap PO 10/31/22 14:15 2 mg Q4H PRN Administration Loose Stool Miscellaneous 1 each 10/02/22 20:59 10/02/22 21:37 Fentanyl Patch Remove & Waste N/A 11/01/22 20:58 1 each Q3D ERNESTO Administration Miscellaneous 1 each 09/30/22 16:00 10/04/22 08:47 Check Fentanyl Patch Placement N/A 10/30/22 15:59 1 each QS ERNESTO Administration Pantoprazole Sodium 40 mg 10/01/22 09:00 10/04/22 08:00 Pantoprazole 40 Mg Tab PO 10/31/22 08:59 40 mg QAM ERNESTO Administration Protocol Sodium Chloride 1 gm 09/30/22 12:30 10/04/22 08:00 Sodium Chloride 1 Gm Tablet PO 10/30/22 12:29 1 gm DAILY ERNESTO Administration PG Care Time/CCT Total # of Minutes Spent Total Time Spent with Patient: Total time spent is greater than 50% in coordination of care (as documented) at patient's floor/unit and/or counseling patient: Coding Level of Care Code 53082 Subseq Hosp Care Lvl 3 Diagnoses E coli enteritis A04.4 Hypokalemia E87.6 Hypomagnesemia E83.42 Acute UTI N39.0 Weakness R53.1 SVT (supraventricular tachycardia) I47.1 Cancer related pain G89.3 Small cell lung cancer C34.90 Type 2 diabetes mellitus E11.9 Elevated troponin R77.8 History of cigarette smoking Z87.891 Hyperlipidemia E78.5 Mechanical deep vein thrombosis (DVT) prophylaxis in place Z78.9
[2022-10-04] MEDS ORDERED: MAGNESIUM OXIDE 400 MG TAB PO STA (09:33)
[2022-10-04] MEDS ORDERED: POTASSIUM CHLORIDE CRTAB 20 MEQ TABCR PO STA (09:33)
--- NOTE | 2022-10-04 10:28 | Palliative Care Consultation ---
Date of Consultation October 04, 2022 Assessment & Plan (1) Palliative care encounter: * Mrs Elizabeth has a Stage IV widespread met SCLC * She has been having more weakness and complications * current admission +UTI * completing RT, 2 sessions remaining * She is beginning to question if cancer therapy is really helping vs hurting. We explored her concerns, largely focused on her fatigue and generalized weakness. Advised this is a normal side effect of RT as well as cancer, it is not easy to have an complex advanced illness. She has not been sharing her concerns with family, worried she will burden them. Anxious she "ruined Juan F" but notes they had a discussion as a family and agreed to celebrate later next week to avoid any additional stress. * for her cancer related fatigue, I recommended a trial of Chair based mobility exercises 1. https://[employer]/21-c lnta-laklezboq-lgb-jvpjtvn-lvjynn-wltpr/ 2. https://www.cancer.org/treatment/qepdbegjeqxj-bppdnk-vdh-after-treatment/be-heal qns-rmhdx-oeecockvw/umbmuycg-zlyeescc-pdv-dag-hmsern-cjovyym.html 3. https://www.cancer.net/blog/2018-06/hfcicwcq-jqehurf-fzy-4-pnrw-hsjqdm-with-canc er 4. https://patientpower.info/living-well/caciidhd-mkp-unalxxs/mkdoq-lyawcgs-wammuvf luozh-npobla-pukptdbam-wjk-wzlvgs-aznczqho 5. [facility] Cancer Patient Yoga Video: https://www.youtube.com/watch?v=ptJg9e7MpTkEmqkqzcy [facility] Podcast: [email or web address]?gclid=[email or web address]&c=[id number]&[id number] (2) Cancer related pain: * Not enough relief with TDF 25mcg and prn MSIR which she is avoiding using bc it makes her feel weak and foggy. * Will increase TDF to 37cmg and rotate opioid for PRN use to oxy IR 5mg po q4h prn, i have stopped MSIR order. * Bowel regimen continues cautiously, she has had some issues with diarrhea. (3) Anxiety: * Anxiety re medical condition + insomnia * BuSpar is not helping. she feels no benefit * She did feel Lorazepam helped the most, has been using it Q8h prn at home, so will resume Lorazepam 0.5mg PO Q8H prn during this admission. I feel we can stop Buspar given her dislike fo the medication. (4) Counseling regarding advanced directives and goals of care: * She reaffirms no code status. * Continues to express worries about limited support: has health issues and pt has been his caregiver, often neglecting her own needs and daughter is a strong support but not physically due to her own mobility impairments. * She will need continued home health support upon discharge, family cannot manage her complex needs without assistance and nursing oversight. Pt may also benefit from some additional DME at home to simplify her life, such as bedside commode given how difficult it is for her to navigate her small bathroom with walker. Plan * Pain regimen modified * anxiety and insomnia regimen modified. I would consider stopping BuSpar, pt feels it has not had any benefit for her. * psychosocial support provided * chair mobility reviewed * she would benefit from home health engagement for medication mgt/oversight + home based PT. If there are options locally for a focused cancer rehab, this would be another option for her Ca Shaw DNP Clinical Director, Palliative Medicine History of Present Illness Reason for Consultation: [facility], pt known to you Attending Physician: Arturo Roach MD History of Present Illness Lore Elizabeth is a 77yo female with met SCLC admitted from home with weakness, lethargy, +UTI/ecoli. she reports progressive weakness over 2-3 days with near fall while leaving her bathroom. Notes that her home bathroom is very narrow and it is difficult to accommodate her walker. We made changes to her cancer pain regimen -TDF recently started, feels TDF and morphine aren't helping very much and prn morphine makes her feel very foggy/out of body appetite is "great" no n/v/d feels alot of fatigue since starting RT, 2 more sessions to go. next session at 1pm today Allergies Allergy/AdvReac Type Severity Reaction Status Date / Time No Known Allergies Allergy Verified 09/27/22 11:45 Home Medications Medication Instructions Recorded Confirmed Type Lactobacillus rhamnosus GG 10 1 cap PO QAM 10/15/19 09/20/22 History billion cell capsule (Culturelle) acetaminophen 500 mg tablet 1,000 mg PO QID PRN Fever Or Pain 10/15/19 09/20/22 History (Tylenol Extra Strength) omeprazole 20 mg capsule,delayed 20 mg PO QAM #90 caps 10/21/21 09/20/22 Rx release blood sugar diagnostic (OneTouch #100 ea 11/16/21 09/20/22 Rx Verio test strips) [facility] Lancets 33 gauge #100 ea 07/19/22 09/20/22 Rx (lancets) metformin 500 mg tablet,extended 1,000 mg PO BID 08/17/22 09/20/22 History release 24 hr allopurinol 300 mg tablet 300 mg PO HS #30 tabs 08/27/22 09/20/22 Rx amiodarone 200 mg tablet 200 mg PO BID #60 tabs 08/27/22 09/20/22 Rx buspirone 5 mg tablet 5 mg PO TID PRN anxiety #30 tabs 08/27/22 09/20/22 Rx morphine 15 mg immediate release 15 mg PO Q4H PRN pain #30 tabs 08/27/22 09/20/22 Rx tablet levalbuterol tartrate 45 2 puff inhalation Q6H PRN 08/28/22 09/20/22 Rx mcg/actuation aerosol inhaler cough/wheeze/shortness of breath (Xopenex HFA) #1 g sodium chloride 1 gram tablet 1,000 mg PO DAILY #30 tabs 08/28/22 09/20/22 Rx cholecalciferol (vitamin D3) 50 50 mcg PO DAILY 09/20/22 09/20/22 History mcg (2,000 unit) capsule fentanyl 25 mcg/hr transdermal 1 patch transdermal Q72H 09/27/22 09/27/22 History patch furosemide 20 mg tablet (Lasix) 10 mg PO DAILY 09/27/22 09/27/22 History lorazepam 0.5 mg tablet (Ativan) 0.5 mg PO TID PRN 09/27/22 09/27/22 History Patient History Medical History (Updated 10/01/22 @ 12:09 by Mario Hunter MD) Alcohol intoxication Blood loss Cancer related pain History of cigarette smoking Hyperlipidemia Hypertension Hyponatremia Hypotension Liver lesion Metastatic cancer Widespread Stage IV Met Ca likely lung primary, bx needed, 08/19/22 Open tibial fracture Palliative care encounter Pathologic lumbar vertebral fracture Sensorineural hearing loss of both ears Small cell lung cancer SVT (supraventricular tachycardia) Type 2 diabetes mellitus Surgical History History of ankle surgery broken ankle-[facility] History of appendectomy History of hemicolectomy January 2016--[facility] History of tonsillectomy History of tubal ligation Port-A-Cath in place (08/24/22) Aport Placement(Left) - Edwin Roa DO, FACS Family History Sister Primary adenocarcinoma of vagina Father Asthma Hypertension Macular degeneration Pulmonary embolism Mother Emphysema lung Brother Macular degeneration Denies family history of Ovarian cancer Prostate cancer Myocardial infarction Breast cancer Colorectal cancer Social History Smoking Status: Former smoker Tobacco Type: Cigarettes packs per day: 2; Second Hand Exposure: No; Hx Alcohol Use: No Hx Substance Use: No Preferred Language: Turkish Communication Ability: Effective Visual Impairment: No Limitations Hearing Ability: Normal Car Seat Maker Required: No Beliefs That Will Affect Care: None marital status: Current Living Situation: Spouse current occupational status: retired How many Children do You have: 2 Other Information That Helps Us Care for You: No Feels Safe at Home: Yes Safety Concerns: Feels Safe At This Time Childhood Exposure to Second-Hand Smoke: Yes caffeine: Yes (coffee 4 cups a day ) Dental Care, Regularly: Yes Physical Activity Frequency: Daily Physical Activity Frequency Comment: bicycle Seatbelt Use: always Sunscreen Use: Yes Assistive Devices: Glasses, Hearing Aid - Bilateral, Walker and Wheelchair Review of Systems Review of Systems: All systems reviewed & are unremarkable except as noted in Subjective Physical Exam Constitutional: well groomed and cooperative Eyes: PERRL, conjunctivae normal, anicteric sclerae ENMT: external ear and nose normal, oropharynx normal Mouth: + chipped teeth Neck: trachea midline, no thyromegaly Respiratory: no respiratory distress and no cough Auscultation: + diminished lung sounds (Decreased breath sounds at apices.) Cardiovascular: Rate/Rhythm: regular rate Vessels: normal peripheral pulses Extremities: normal capillary refill Gastrointestinal (Abdomen): normal bowel sounds, soft, nontender, no hepatosplenomegaly Skin: no rashes, warm and dry new port incision left anterior chest Neurologic: Gait not assessed due to pathologic fx. strength intact but some weakness. pt is AAOx3 Psychiatric: Orientation: alert and oriented x 3 Eye Contact: good eye contact Thought Process: goal directed thought process and linear/logical thought process Cognition: recent memory grossly intact, remote memory grossly intact, attention grossly intact and language grossly intact Insight: excellent insight Judgement: excellent judgement Results & Data ([facility]) Vital Signs (Past 12 Hours) Vital Signs Temp Pulse Pulse Pulse Pulse Resp BP 10/04/22 08:30 85 10/04/22 08:30 10/04/22 07:49 36.7 C 78 20 127/78 10/04/22 03:07 36.5 C 78 18 121/67 10/04/22 01:55 77 22 10/04/22 00:18 88 10/03/22 23:09 36.5 C 82 18 110/64 Pulse Ox O2 Del Method 10/04/22 08:30 10/04/22 08:30 Room Air 10/04/22 07:49 94 Room Air 10/04/22 03:07 94 Room Air 10/04/22 01:55 96 Room Air 10/04/22 00:18 10/03/22 23:09 94 Room Air Laboratory Results labs and imaging reviewed Diagnostic Findings labs and imaging reviewed PG Care Time/CCT Total # of Minutes Spent Total Time Spent: 85 Total Time Spent with Patient: Total time spent is greater than 50% in coordination of care (as documented) at patient's floor/unit and/or counseling patient: Prolonged Care Time Prolonged Care Time: Yes [place] [address] Inpt Consult Level 5 Patient Type New History Comprehensive Exam Comprehensive Medical Decision Making High Complexity Diagnoses Palliative care encounter Z51.5 Cancer related pain G89.3 Anxiety F41.9 Counseling regarding advanced directives and goals of care Z71.89 Additional Codes Prolonged Care Time - Prolonged Care Time: Yes ([id number])
[2022-10-04] MEDS: ONDANSETRON INJ 2 MG/ML 2 ML VIAL IV PRN (10:44)
[2022-10-04] MEDS: allopurinoL 300 MG TAB PO SCH (21:52)
[2022-10-05] MEDS: LEVALBUTEROL TARTRATE 15 GM HFA.AER.AD INH PRN (00:09)
[2022-10-05] MEDS: CHECK fentaNYL PATCH PLACEMENT SCH ×3 (00:34→15:08)
[2022-10-05] MEDS: LORazepam 0.5 MG TAB PO PRN ×2 (02:35→22:53)
[2022-10-05 06:49] LABS: Calcium 7.1 mg/dl (8.5-10.1); Creatinine Clr Calc Pharmacy 126.7 ml/min; Est GFR (Non-African American) 103.5 ml/min; Magnesium 1.3 mg/dl (1.7-2.4); Potassium 3.7 mmol/L (3.5-5.1)
[2022-10-05] MEDS: DICLOFENAC SOD 1% GEL 100 GM TUBE EXT SCH ×2 (07:58→21:22)
[2022-10-05] MEDS: PANTOprazole 40 MG TAB PO SCH (07:58)
[2022-10-05] MEDS: ENOXAPARIN INJ 30 MG/0.3 ML SYR SQ SCH (07:58)
[2022-10-05] MEDS: SODIUM CHLORIDE 1 GM TABLET PO SCH (07:58)
[2022-10-05] MEDS: AMIODARONE 200 MG TAB PO SCH ×2 (07:58→21:21)
[2022-10-05] MEDS: INSULIN ASPART PER UNIT SC SCH ×4 (08:31→21:18)
--- NOTE | 2022-10-05 09:43 | Hospitalist Progress Note ---
Date of Service October 05, 2022 Assessment & Plan (1) E coli enteritis: Plan: diarrhea has resolved treated E cOLI enteritis with azithromycin 1) Will get radiation therapy today last dose of the year. 2) PT/OT ongoing- 24 home care rec .3)I have informed Ms Shaw , palliative care. (2) Hypokalemia: Plan: replenish po- watch BMP (3) Hypomagnesemia: Plan: REeplenish po- watch Mg (4) Acute UTI: Plan: Patient diagnosed with urinary tract infection outpatient and failed treatment with Nitrofurantoin (Macrobid). ceftriaxone x 3 days. (Finished.) (5) Weakness: Plan: Patient with widespread metastatic disease with small cell lung cancer primary. Now with diarrhea, dehydration, and electrolytes derangements. - Ordered PT/OT evaluation and treatment - Continue to replete electrolytes and follow per protocol (6) SVT (supraventricular tachycardia): Plan: Multiple episodes of SVT during the patient's last admission in August 2022. - Currently on amiodarone 200 mg p.o. BID for suppression. -> On 10/01, put her back on amiodarone IV as her runs of SVT were becoming predominant (more SVT than sinus; no afib). This has resolved. Returned to PO amiodarone on 10/02. (7) Cancer related pain: Plan: - Continue home regimen of pain medicine - Palliative medicine has been involved and appreciate pain meds m/t as below. (8) Small cell lung cancer: Plan: Recent diagnosis by liver biopsy in with lung primary August 2022. Widespread metastasis to liver, bone, brain. - ONGOING RAD TX of the lumbar spine. 10/04Pain meds adjusted by palliative care - fentanyl patch dose raised from 25 mcg to 37, morphine IR ( makes her weak and foggy) changed to oxy IR 5 mg q 4h prn (9) Type 2 diabetes mellitus: Plan: A1c was 6.9% this admission. Patient is not on home insulin. - metformin was held on admission- restart . stop SSI. (10) Elevated troponin: Plan: No chest pain or tightness. No changes on EKG. Most likely secondary to ischemic demand. - Serial troponins stable at 22 - 30. No concern for ACS. (11) History of cigarette smoking: Plan: 56-jitl-ujed smoking history. Quit smoking at age 71. History of COPD but we cannot locate pulmonary function testing. Patient has rescue inhaler at home with levalbuterol (Xopenex) and no other pulmonary treatment. - Treat supportively and maintain SaO2 between 88 and 92% (12) Hyperlipidemia: Plan: Patient previously was on a statin. - Continue heart healthy diet (13) Mechanical deep vein thrombosis (DVT) prophylaxis in place: Plan: Patient with history of SVT and widespread malignancy with metastasis. - Lovenox 30 mg SQ daily Patient is a DNR/DNI but would agree to electrical cardioversion or IV medications to treat her arrhythmias. Plan telemetry being kept as amiodarone changed to oral 3 days ago- had recurrent SVT recently. Chemotx starts tomorrow- can be done as outpatient if HH can be arranged - needs 24 h help at home though. Admission and Anticipated Discharge Date Admission Date: September 30, 2022 Subjective feels well, pleased with radiation tx yesterday Worried about her weakness and being home . coughing more last few weeks. Appetite good here- ate 100% breakfast. At home no one cooks and they eat TV din ners Slept better w lorazepam restarted by palliative care yesterday. Physical Exam Physical Exam: obese , pleasant, tired looking,lying flat in bed,lucid historian moist tongue Short of breath mid sentence anicteric sclera thin cropped hair Chest CTA CVS: S1 S2 telemetry artefact 94/min Abd- soft, non tender SHOWER MAID : 5/5 elbow flexors, and toe plantar flexors Normal insight , and judgement, appropriate affect Results & Data Results & Data ([facility]) Vital Signs (Past 12 Hours) Vital Signs Temp Pulse Pulse Resp BP Pulse Ox O2 Del Method 10/05/22 07:58 36.8 C 97 H 18 131/62 97 Room Air 10/05/22 02:30 36.4 C L 82 17 127/75 94 Room Air 10/05/22 00:36 84 10/05/22 00:10 87 18 94 Room Air 10/04/22 22:08 36.5 C 89 17 104/67 90 Room Air PG Care Time/CCT Total # of Minutes Spent Total Time Spent with Patient: Total time spent is greater than 50% in coordination of care (as documented) at patient's floor/unit and/or counseling patient: Coding Level of Care Code 01517 Subseq Hosp Care Lvl 2 Diagnoses E coli enteritis A04.4 Hypokalemia E87.6 Hypomagnesemia E83.42 Acute UTI N39.0 Weakness R53.1 SVT (supraventricular tachycardia) I47.1 Cancer related pain G89.3 Small cell lung cancer C34.90 Type 2 diabetes mellitus E11.9 Elevated troponin R77.8 History of cigarette smoking Z87.891 Hyperlipidemia E78.5 Mechanical deep vein thrombosis (DVT) prophylaxis in place Z78.9
[2022-10-05] MEDS: oxyCODONE HCL IR 5 MG TAB (IMMEDIATE RELEASE) PO PRN (15:07)
--- NOTE | 2022-10-05 15:16 | Palliative Care Progress Note ---
Date of Service October 05, 2022 Assessment & Plan (1) Palliative care encounter: Plan: Completing radiation today. A little worried about the status of chemotherapy tomorrow if she is not discharged today. (2) Cancer related pain: Plan: Pain is slowly improving with the increase of transdermal fentanyl and the rotation to Oxy IR from MS IR. Ativan is helping with her anxiety. She has also tried a dose at bedtime for insomnia which has provided some relief. Ultimately she feels she would have better sleep if she were to be able to return home. Plan We will continue the current regimen of transdermal fentanyl 37 mcg/h every 3 days and Oxy IR 5 mg by mouth every 4 hours as needed for breakthrough pain. We will continue Ativan 0.5 mg every 8 as needed for anxiety or insomnia. Psychosocial support and reassurance provided. Patient is still pondering in a more existential manner the overall benefits versus quality of life that she is feeling on current therapies. For now she plans to continue on her current course of cancer directed treatment. TS 54min Ca Shaw DNP Clinical Director, Palliative Medicine Admission and Anticipated Discharge Date Admission Date: September 30, 2022 Subjective Patient is seen prior to her radiation session this afternoon. She reports some improved pain management. Yesterday we increased her transdermal fentanyl patch to 37 mcg/h every 3 days and rotated her opioid from MS IR to Oxy IR. She feels the Ya is helping better than the morphine and seems to be fewer side effects as far as mental clouding and the feeling of sedation. She continues to tolerate her radiation sessions and notes that today should be her last session. She is scheduled for chemotherapy tomorrow but unsure about the plan as far as would that be done in-house or will she be disc harged later today She denies nausea and vomiting. She has no headaches or visual changes. She denies chest pain or shortness of breath. Review of Systems Review of Systems: All systems reviewed & are unremarkable except as noted in Subjective Physical Exam Constitutional: well groomed and cooperative Eyes: PERRL, conjunctivae normal, anicteric sclerae ENMT: external ear and nose normal, oropharynx normal Mouth: + chipped teeth Neck: trachea midline, no thyromegaly Respiratory: no respiratory distress and no cough Auscultation: + diminished lung sounds (Decreased breath sounds at apices.) Cardiovascular: Rate/Rhythm: regular rate Vessels: normal peripheral pulses Extremities: normal capillary refill Gastrointestinal (Abdomen): normal bowel sounds, soft, nontender, no hepatosplenomegaly Skin: no rashes, warm and dry new port incision left anterior chest Neurologic: Gait not assessed due to pathologic fx. strength intact but some weakness. pt is AAOx3 Psychiatric: Orientation: alert and oriented x 3 Eye Contact: good eye contact Thought Process: goal directed thought process and linear/logical thought process Cognition: recent memory grossly intact, remote memory grossly intact, attention grossly intact and language grossly intact Insight: excellent insight Judgement: excellent judgement Results & Data ([facility]) Vital Signs (Past 12 Hours) Vital Signs Temp Pulse Pulse Resp BP Pulse Ox O2 Del Method 10/05/22 11:30 36.6 C 88 18 112/70 96 Room Air 10/05/22 07:45 83 10/05/22 07:58 36.8 C 97 H 18 131/62 97 Room Air Laboratory Results Labs and imaging reviewed Diagnostic Findings Labs and imaging reviewed PG Care Time/CCT Total # of Minutes Spent Total Time Spent: 54 Total Time Spent with Patient: Total time spent is greater than 50% in coordination of care (as documented) at patient's floor/unit and/or counseling patient: Prolonged Care Time Prolonged Care Time: No C[place] [address] Subseq Hosp Care Lvl 3 Patient Type Established History Detailed Exam Detailed Medical Decision Making Moderate Complexity Diagnoses Palliative care encounter Z51.5 Cancer related pain G89.3
[2022-10-05] MEDS: fentaNYL 12 MCG/HR TDSY TD SCH (21:21)
[2022-10-05] MEDS: allopurinoL 300 MG TAB PO SCH (21:21)
[2022-10-05] MEDS: fentaNYL 25 MCG/HR TDSY TD SCH (21:21)
[2022-10-05] MEDS: busPIRone 5 MG TAB PO PRN (21:51)
[2022-10-06] MEDS: oxyCODONE HCL IR 5 MG TAB (IMMEDIATE RELEASE) PO PRN ×2 (00:13→23:10)
[2022-10-06] MEDS: CHECK fentaNYL PATCH PLACEMENT SCH ×3 (00:13→16:57)
[2022-10-06] MEDS: LEVALBUTEROL TARTRATE 15 GM HFA.AER.AD INH PRN (01:45)
[2022-10-06] MEDS: ACETAMINOPHEN 500 MG TAB PO PRN (02:39)
[2022-10-06 06:14] LABS: BUN Creatinine Ratio 24.2 (10-20); Calcium 7.1 mg/dl (8.5-10.1); Creatinine Clr Calc Pharmacy 134.4 ml/min; Est GFR (African American) 122.3 ml/min; Est GFR (Non-African American) 105.5 ml/min; Potassium 3.4 mmol/L (3.5-5.1)
[2022-10-06] MEDS: DICLOFENAC SOD 1% GEL 100 GM TUBE EXT SCH ×2 (08:22→19:40)
[2022-10-06] MEDS: PANTOprazole 40 MG TAB PO SCH (08:39)
[2022-10-06] MEDS: ENOXAPARIN INJ 30 MG/0.3 ML SYR SQ SCH (08:39)
[2022-10-06] MEDS: SODIUM CHLORIDE 1 GM TABLET PO SCH (08:39)
[2022-10-06] MEDS: AMIODARONE 200 MG TAB PO SCH ×2 (08:39→19:42)
[2022-10-06] MEDS: INSULIN ASPART PER UNIT SC SCH ×4 (08:44→20:29)
[2022-10-06] MEDS: busPIRone 5 MG TAB PO PRN ×2 (09:37→19:41)
[2022-10-06] MEDS: LORazepam 0.5 MG TAB PO PRN ×2 (14:05→22:41)
--- NOTE | 2022-10-06 14:43 | Hospitalist Progress Note ---
Date of Service October 06, 2022 Assessment & Plan (1) E coli enteritis: Plan: diarrhea has resolved. Treated E coli enteritis with azithromycin (2) Hypokalemia: Plan: Repleted with oral potassium . Serial labs (3) Hypomagnesemia: Plan: Repleted. Serial labs (4) Acute UTI: Plan: Patient diagnosed with urinary tract infection outpatient and failed treatment with Nitrofurantoin (Macrobid). Treated as inpatient with ceftriaxone x 3 days. (5) Weakness: Plan: Patient with widespread metastatic disease with small cell lung cancer primary. Now admitted with diarrhea, dehydration, and electrolytes derangements. Continue OT and PT. (6) SVT (supraventricular tachycardia): Plan: Multiple episodes of SVT during the patient's last admission in August 2022. Currently on amiodarone 200 mg p.o. BID for suppression. On 10/01, put her back on amiodarone IV as her runs of SVT were becoming predominant (more SVT than sin us; no afib). This has resolved. Returned to PO amiodarone on 10/02. (7) Cancer related pain: Plan: Continue home regimen of pain medicine. Palliative medicine has been involved and appreciate pain meds management. (8) Small cell lung cancer: Plan: Recent diagnosis by liver biopsy in with lung primary, August 2022. Widespread metastasis to liver, bone, brain. Ongoing RAD TX of the lumbar spine. Scheduled chemotherapy has been delayed. Continue pain management. (9) Type 2 diabetes mellitus: Plan: A1c was 6.9% this admission. Patient is not on home insulin. ADA diet. Continue metformin therapy (10) Elevated troponin: Plan: No chest pain or tightness. No changes on EKG. Most likely secondary to ischemic demand. No evidence of acute coronary syndrome. (11) History of cigarette smoking: Plan: 35-[id number]-yjkw smoking history. Quit smoking at age 71. Suspected COPD but cannot locate pulmonary function testing results. Patient has rescue inhaler at home with levalbuterol (Xopenex) and no other pulmonary treatment. Treat supportively and maintain SaO2 between 88 and 92% (12) Hyperlipidemia: Plan: Patient previously was on a statin. Continue heart healthy diet (13) Mechanical deep vein thrombosis (DVT) prophylaxis in place: Plan: Patient with history of SVT and widespread malignancy with metastasis. Currently on Lovenox 30 mg SQ daily Patient is a DNR/DNI but would agree to electrical cardioversion or IV medications to treat her arrhythmias. Plan Anticipate eventual discharge to SNF facility. Family is hesitant to have her go home since her elderly has COVID and is not doing well. Scheduled chemotherapy has been postponed. Admission and Anticipated Discharge Date Admission Date: September 30, 2022 Subjective Alert and oriented. I spoke with the patient's daughter, Ludmila, by phone and she is concerned that she will not do well at home with her who is ill with COVID. SNF placement is probably necessary. I messaged case management who will contact the daughter, Ludmila, and discuss placement. Chemotherapy has been postponed. Palliative care consultation appreciated. Review of Systems Review of Systems: Constitutional-no fever or chills ENT-no blurred vision, no double vision, no epistaxis, no sore throat Respiratory-no cough, no wheezing, no shortness of breath Cardiac-no palpitations, no chest pain, no syncope GI-no nausea, vomiting, diarrhea, melena, hematochezia -no urinary retention, no urinary incontinence, no dysuria, no hematuria Musculoskeletal-no joint pain, no muscle tenderness Skin-no bruising, no rashes, no pruritus Neuro-no isolated weakness, no paresthesia, no weakness Psych-no depression, no anxiety Physical Exam Physical Exam: General-alert and oriented x3, no fevers, no chills. Obese HEENT-head atraumatic and normocephalic, pupils equal and reactive to light, extraocular muscles intact Neck-no lymphadenopathy or thyromegaly, trachea midline Chest-clear to auscultation percussion. No rales wheezing or rhonchi Cardiac-regular rate and rhythm, normal S1 and S2 Abdomen-normal bowel sounds, nontender, no hepatosplenomegaly Extremities-no cyanosis, clubbing, or edema Neuro-cranial nerves II through XII intact, motor and sensory function within normal limits, strength symmetrical with generalized weakness, no focal deficits Psych-normal affect, normal mood Results & Data Results & Data ([facility]) Vital Signs (Past 12 Hours) Vital Signs Temp Pulse Pulse Resp BP Pulse Ox O2 Del Method 10/06/22 12:02 36.4 C L 92 H 18 112/74 93 Room Air 10/06/22 08:00 91 H 10/06/22 07:05 36.3 C L 82 19 120/71 92 Room Air 10/06/22 04:03 36.3 C L 83 18 123/77 94 Room Air Laboratory Results 10/04/22 05:35 10/06/22 05:20 PG Care Time/CCT Total # of Minutes Spent Total Time Spent with Patient: Total time spent is greater than 50% in coordination of care (as documented) at patient's floor/unit and/or counseling patient: Coding Level of Care Code 24808 Subseq Hosp Care Lvl 3 Diagnoses E coli enteritis A04.4 Hypokalemia E87.6 Hypomagnesemia E83.42 Acute UTI N39.0 Weakness R53.1 SVT (supraventricular tachycardia) I47.1 Cancer related pain G89.3 Small cell lung cancer C34.90 Type 2 diabetes mellitus E11.9 Elevated troponin R77.8 History of cigarette smoking Z87.891 Hyperlipidemia E78.5 Mechanical deep vein thrombosis (DVT) prophylaxis in place Z78.9
[2022-10-06] MEDS: allopurinoL 300 MG TAB PO SCH (19:41)
[2022-10-06] MEDS: LOPERAMIDE HCL 2 MG CAP PO PRN (19:42)
[2022-10-07] MEDS: CHECK fentaNYL PATCH PLACEMENT SCH ×4 (01:41→22:21)
[2022-10-07] MEDS: ACETAMINOPHEN 500 MG TAB PO PRN ×3 (02:16→21:15)
[2022-10-07] MEDS: busPIRone 5 MG TAB PO PRN ×3 (03:35→20:32)
[2022-10-07] MEDS: LORazepam 0.5 MG TAB PO PRN ×3 (05:55→21:13)
[2022-10-07 07:20] LABS: BUN Creatinine Ratio 19.4 (10-20); Calcium 7.2 mg/dl (8.5-10.1); Creatinine Clr Calc Pharmacy 141.2 ml/min; Est GFR (African American) 124.9 ml/min; Est GFR (Non-African American) 107.7 ml/min
[2022-10-07] MEDS: AMIODARONE 200 MG TAB PO SCH ×2 (08:23→21:13)
[2022-10-07] MEDS: PANTOprazole 40 MG TAB PO SCH (08:23)
[2022-10-07] MEDS: SODIUM CHLORIDE 1 GM TABLET PO SCH (08:23)
[2022-10-07] MEDS: ENOXAPARIN INJ 30 MG/0.3 ML SYR SQ SCH (08:24)
[2022-10-07] MEDS: DICLOFENAC SOD 1% GEL 100 GM TUBE EXT SCH ×2 (08:25→20:35)
[2022-10-07] MEDS: ONDANSETRON INJ 2 MG/ML 2 ML VIAL IV PRN (08:30)
[2022-10-07] MEDS: INSULIN ASPART PER UNIT SC SCH ×4 (08:30→20:42)
[2022-10-07] MEDS: oxyCODONE HCL IR 5 MG TAB (IMMEDIATE RELEASE) PO PRN ×2 (08:30→21:13)
--- NOTE | 2022-10-07 12:13 | Palliative Care Progress Note ---
Date of Service October 07, 2022 Assessment & Plan (1) Palliative care encounter: Plan: Completed radiation today. Chemo oh hold. Awaiting SNF placement for rehab at home with COVID (2) Cancer related pain: Plan: Pain improved with TDF increase to 37mcg/hr q3days and rotation to Oxy IR prn Ativan is helping with her anxiety and insomnia. We discussed stopping Buspar. Plan We will continue the current regimen of transdermal fentanyl 37 mcg/h every 3 days and Oxy IR 5 mg by mouth every 4 hours as needed for breakthrough pain. We will continue Ativan 0.5 mg every 8 as needed for anxiety or insomnia. we discussed Buspar and she states she would rather stay on it because she likes knowing there is something routinely scheduled and she worries she will not be given the prn ativan reliably or wait too long for it when she calls. Psychosocial support and reassurance provided. Patient is still pondering in a more existential manner the overall benefits versus quality of life that she is feeling on current therapies, for now she plans to continue on her current course of cancer directed treatment. She is hopeful rehab will help her gain strength so that she may return home and be able to meet her needs/not rely on who she admits is limited in his capacity to help. She states they speak several times a day and "he talks a good game about when I come home things will be different but the truth is they haven't been different and he's just not cut out for caregiver work. Before I fell this time he wasn't helping me out of the bathroom, but he stood in front of me and just kept telling me to move, that he knew I could do it. the motivation is nice but isn't helpful." TS 48min Ca Shaw DNP Clinical Director, Palliative Medicine Admission and Anticipated Discharge Date Admission Date: September 30, 2022 Subjective pt reports pain relief is to her liking for now. anxiety and insomnia improved with prn ativan. she has agreed to proceed with SNF rehab disposition and notes her at home currently has covid and has not been able to safely meet her needs prior to this admission. her family's ability to help physically is also limited. they can assist with med mgt and checking in on her but cannot help with personal care and mobility needs appetite remains stable, no n/v/d/c she states while at home "everything tastes like sawdust" she ahs been able to eat most of the meals she is given here at [facility] and has been able to enjoy eating. She tells me chemo for now is on hold, between the admission, seeking placement and upcoming holidays. She feels it prudent to wait a few weeks and see if she gets stronger. She is dismayed to be away/apart from family now maria l thru the holidays. She hopes they may be able to visit over the weekend Review of Systems Review of Systems: All systems reviewed & are unremarkable except as noted in Subjective Physical Exam Constitutional: WD/WN, vitals as above well developed, + ill appearing and average body habitus Eyes: PERRL, conjunctivae normal, anicteric sclerae EOM intact bilaterally ENMT: external ear and nose normal, oropharynx normal Ears: + hearing impairment Neck: trachea midline, no thyromegaly normal visual inspection Respiratory: normal respiratory effort and symmetric chest movement Au scultation: + diminished lung sounds and + crackles Cardiovascular: Rate/Rhythm: + irregularly irregular Heart Sounds: normal S1 and normal S2 Extremities: normal capillary refill Chest (Breasts): Chest: normal inspection of chest Gastrointestinal (Abdomen): Inspection/Auscultation: abdomen normal to inspection and normal bowel sounds Percussion/Palpation: normal to percussion Musculoskeletal: Head/Neck/Chest: normocephalic, head atraumatic and neck supple Spine: + limited thoraco-lumbar ROM Gait: + antalgic gait Skin: + turgor decreased, + hair thinning and + hair sheds easily lesion right third finger, with granulation and peripheral erythema, ?pyogenic granuloma like lesion with some scabbing Neurologic: AAOx3 Psychiatric: Orientation: + guarded Eye Contact: good eye contact Affect: + anxious affect Thought Process: clear/coherent thought process Thought Content: + loneliness Suicidal Thoughts: denies suicidal thoughts Homicidal Thoughts: denies homicidal thoughts Insight: good insight Judgement: good judgement Results & Data ([facility]) Vital Signs (Past 12 Hours) Vital Signs Temp Pulse Resp BP Pulse Ox O2 Del Method 10/07/22 11:35 36.4 C 83 20 122/77 96 Room Air 10/07/22 08:00 Room Air 10/07/22 06:26 36.7 C 81 20 116/67 97 Room Air 10/07/22 04:14 36.9 C 82 16 118/69 94 Room Air PG Care Time/CCT Total # of Minutes Spent Total Time Spent: 48 Total Time Spent with Patient: Total time spent is greater than 50% in coordination of care (as documented) at patient's floor/unit and/or counseling patient: Prolonged Care Time Prolonged Care Time: No Coding [place] [address] Subseq Hosp Care Lvl 3 Patient Type Established History Detailed Exam Detailed Medical Decision Making Moderate Complexity Diagnoses Palliative care encounter Z51.5 Cancer related pain G89.3
--- NOTE | 2022-10-07 15:35 | Hospitalist Progress Note ---
Date of Service October 07, 2022 Assessment & Plan (1) E coli enteritis: Plan: diarrhea has resolved. Treated E coli enteritis with azithromycin (2) Hypokalemia: Plan: Recurrent. Twice daily oral potassium ordered. Serial labs. (3) Hypomagnesemia: Plan: Repleted. Serial labs (4) Acute UTI: Plan: Patient diagnosed with urinary tract infection outpatient and failed treatment with Nitrofurantoin (Macrobid). Treated as inpatient with ceftriaxone x 3 days. (5) Weakness: Plan: Patient with widespread metastatic disease with small cell lung cancer primary. Now admitted with diarrhea, dehydration, and electrolytes derangements. Continue OT and PT. (6) SVT (supraventricular tachycardia): Plan: Multiple episodes of SVT during the patient's last admission in August 2022. Currently on amiodarone 200 mg p.o. BID for suppression. On 10/01, put her back on amiodarone IV as her runs of SVT were becoming predominant (more SVT than sinus; no afib). This has resolved. Returned to PO amiodarone on 10/02. (7) Cancer related pain: Plan: Continue home regimen of pain medicine. Palliative medicine has been involved and appreciate pain meds management. (8) Small cell lung cancer: Plan: Recent diagnosis by liver biopsy in with lung primary, August 2022. Widespread metastasis to liver, bone, brain. Ongoing RAD TX of the lumbar spine. Scheduled chemotherapy has been delayed. Continue pain management. (9) Type 2 diabetes mellitus: Plan: A1c was 6.9% this admission. Patient is not on home insulin. ADA diet. Continue metformin therapy (10) Elevated troponin: Plan: No chest pain or tightness. No changes on EKG. Most likely secondary to ischemic demand. No evidence of acute coronary syndrome. (11) History of cigarette smoking: Plan: [id number]-[id number] smoking history. Quit smoking at age 71. Suspected COPD but cannot locate pulmonary function testing results. Patient has rescue inhaler at home with levalbuterol (Xopenex) and no other pulmonary treatment. Treat supportively and maintain SaO2 between 88 and 92% (12) Hyperlipidemia: Plan: Patient previously was on a statin. Continue heart healthy diet (13) Mechanical deep vein thrombosis (DVT) prophylaxis in place: Plan: Patient with history of SVT and widespread malignancy with metastasis. Currently on Lovenox 30 mg SQ daily Patient is a DNR/DNI but would agree to electrical cardioversion or IV medications to treat her arrhythmias. Plan Anticipate eventual discharge to SNF facility. Family is hesitant to have her go home since her elderly has COVID and is not doing well. Scheduled chemotherapy has been postponed. Admission and Anticipated Discharge Date Admission Date: September 30, 2022 Subjective Alert and oriented. No significant changes. Oral potassium ordered twice daily for recurrent hypokalemia. SNF placement pending. Review of Systems Review of Systems: Constitutional-no fever or chills ENT-no blurred vision, no double vision, no epistaxis, no sore throat Respiratory-no cough, no wheezing, no shortness of breath Cardiac-no palpitations, no chest pain, no syncope GI-no nausea, vomiting, diarrhea, melena, hematochezia -no urinary retention, no urinary incontinence, no dysuria, no hematuria Musculoskeletal-no joint pain, no muscle tenderness Skin-no bruising, no rashes, no pruritus Neuro-no isolated weakness, no paresthesia, no weakness Psych-no depression, no anxiety Physical Exam Physical Exam: General-alert and oriented x3, no fevers, no chills. Obese HEENT-head atraumatic and normocephalic, pupils equal and reactive to light, extraocular muscles intact Neck-no lymphadenopathy or thyromegaly, trachea midline Chest-clear to auscultation percussion. No rales wheezing or rhonchi Cardiac-regular rate and rhythm, normal S1 and S2 Abdomen-normal bowel sounds, nontender, no hepatosplenomegaly Extremities-no cyanosis, clubbing, or edema Neuro-cranial nerves II through XII intact, motor and sensory function within normal limits, strength symmetrical with generalized weakness, no focal deficits Psych-normal affect, normal mood Results & Data Results & Data ([facility]) Vital Signs (Past 12 Hours) Vital Signs Temp Pulse Resp BP Pulse Ox O2 Del Method 10/07/22 11:35 36.4 C 83 20 122/77 96 Room Air 10/07/22 08:00 Room Air 10/07/22 06:26 36.7 C 81 20 116/67 97 Room Air 10/07/22 04:14 36.9 C 82 16 118/69 94 Room Air Laboratory Results 10/04/22 05:35 10/07/22 06:09 PG Care Time/CCT Total # of Minutes Spent Total Time Spent with Patient: Total time spent is greater than 50% in coordination of care (as documented) at patient's floor/unit and/or counseling patient: Coding Level of Care Code 80305 Subseq Hosp Care Lvl 2 Diagnoses E coli enteritis A04.4 Hypokalemia E87.6 Hypomagnesemia E83.42 Acute UTI N39.0 Weakness R53.1 SVT (supraventricular tachycardia) I47.1 Cancer related pain G89.3 Small cell lung cancer C34.90 Type 2 diabetes mellitus E11.9 Elevated troponin R77.8 History of cigarette smoking Z87.891 Hyperlipidemia E78.5 Mechanical deep vein thrombosis (DVT) prophylaxis in place Z78.9
[2022-10-07] MEDS: HEPARIN 100 UNIT/ML 5ML FLUSH FLUSH PRN (15:43)
[2022-10-07] MEDS: allopurinoL 300 MG TAB PO SCH (20:32)
[2022-10-07] MEDS: POTASSIUM CHLORIDE 10 MEQ TABCR PO SCH (20:33)
[2022-10-08] MEDS: oxyCODONE HCL IR 5 MG TAB (IMMEDIATE RELEASE) PO PRN ×2 (01:20→23:40)
[2022-10-08] MEDS: LORazepam 0.5 MG TAB PO PRN ×2 (05:20→11:19)
[2022-10-08 06:51] LABS: BUN Creatinine Ratio 23.1 (10-20); Calcium 7.4 mg/dl (8.5-10.1); Creatinine Clr Calc Pharmacy 111.9 ml/min; Est GFR (African American) 115.8 ml/min; Est GFR (Non-African American) 99.9 ml/min; Potassium 3.4 mmol/L (3.5-5.1)
[2022-10-08] MEDS: INSULIN ASPART PER UNIT SC SCH ×4 (08:52→21:03)
[2022-10-08] MEDS: CHECK fentaNYL PATCH PLACEMENT SCH ×3 (08:52→23:43)
[2022-10-08] MEDS: DICLOFENAC SOD 1% GEL 100 GM TUBE EXT SCH ×2 (09:05→21:03)
[2022-10-08] MEDS: AMIODARONE 200 MG TAB PO SCH ×2 (09:05→21:02)
[2022-10-08] MEDS: PANTOprazole 40 MG TAB PO SCH (09:15)
[2022-10-08] MEDS: ENOXAPARIN INJ 30 MG/0.3 ML SYR SQ SCH (09:15)
[2022-10-08] MEDS: SODIUM CHLORIDE 1 GM TABLET PO SCH (09:16)
[2022-10-08] MEDS: POTASSIUM CHLORIDE 10 MEQ TABCR PO SCH ×2 (09:16→21:04)
--- NOTE | 2022-10-08 12:50 | Hospitalist Progress Note ---
Date of Service October 08, 2022 Assessment & Plan (1) E coli enteritis: Plan: diarrhea has resolved. Treated E coli enteritis with azithromycin (2) Hypokalemia: Plan: Recurrent. Improving with twice daily oral potassium. Serial labs. (3) Hypomagnesemia: Plan: Repeat level remains low. Parenteral replacement ordered. Serial labs (4) Acute UTI: Plan: Patient diagnosed with urinary tract infection outpatient and failed treatment with Nitrofurantoin (Macrobid). Treated as inpatient with ceftriaxone x 3 days. (5) Weakness: Plan: Patient with widespread metastatic disease with small cell lung cancer primary. Currently admitted with diarrhea, dehydration, and electrolytes derangements. Continue OT and PT. (6) SVT (supraventricular tachycardia): Plan: Multiple episodes of SVT during the patient's last admission in August 2022. Currently on amiodarone 200 mg p.o. BID for suppression. On 10/01, put her back on amiodarone IV as her runs of SVT were becoming predominant (more SVT than sinus; no afib). This has resolved. Returned to PO amiodarone on 10/02. (7) Cancer related pain: Plan: Continue home regimen of pain medicine. Palliative medicine has been involved and appreciate pain meds management. (8) Small cell lung cancer: Plan: Recent diagnosis by liver biopsy in with lung primary, August 2022. Widespread metastasis to liver, bone, brain. Ongoing RAD TX of the lumbar spine. Scheduled chemotherapy has been delayed. Continue pain management. Oncology has recommended follow-up CT scanning of the chest, abdomen, pelvis and brain MRI which have been ordered (9) Type 2 diabetes mellitus: Plan: A1c was 6.9% this admission. Patient is not on home insulin. ADA diet. Continue metformin therapy (10) Elevated troponin: Plan: No chest pain or tightness. No changes on EKG. Most likely secondary to ischemic demand. No evidence of acute coronary syndrome. (11) History of cigarette smoking: Plan: [id number]-[id number] smoking history. Quit smoking at age 71. Suspected COPD but cannot locate pulmonary function testing results. Patient has rescue inhaler at home with levalbuterol (Xopenex) and no other pulmonary treatment. Treat supportively and maintain SaO2 between 88 and 92% (12) Hyperlipidemia: Plan: Patient previously was on a statin. Continue heart healthy diet (13) Mechanical deep vein thrombosis (DVT) prophylaxis in place: Plan: Patient with history of SVT and widespread malignancy with metastasis. Currently on Lovenox 30 mg SQ daily Patient is a DNR/DNI but would agree to electrical cardioversion or IV medications to treat her arrhythmias. Plan Anticipate eventual discharge to SNF facility. Family is hesitant to have her go home since her elderly has COVID and is not doing well. Scheduled chemotherapy has been postponed. Admission and Anticipated Discharge Date Admission Date: September 30, 2022 Subjective Alert and oriented. Oncology has recommended repeat CT scanning of the chest/abdomen/pelvis along with brain MRI scan. These have been ordered. Potassium has improved to 3.4. Continue oral replacement therapy. Magnesium level is low and parenteral therapy ordered with follow-up level. Otherwise no significant change Review of Systems Review of Systems: Constitutional-no fever or chills ENT-no blurred vision, no double vision, no epistaxis, no sore throat Respiratory-no cough, no wheezing, no shortness of breath Cardiac-no palpitations, no chest pain, no syncope GI-no nausea, vomiting, diarrhea, melena, hematochezia -no urinary retention, no urinary incontinence, no dysuria, no hematuria Musculoskeletal-no joint pain, no muscle tenderness Skin-no bruising, no rashes, no pruritus Neuro-no isolated weakness, no paresthesia, no weakness Psych-no depression, no anxiety Physical Exam Physical Exam: General-alert and oriented x3, no fevers, no chills. Obese HEENT-head atraumatic and normocephalic, pupils equal and reactive to light, extraocular muscles intact Neck-no lymphadenopathy or thyromegaly, trachea midline Chest-clear to auscultation percussion. No rales wheezing or rhonchi Cardiac-regular rate and rhythm, normal S1 and S2 Abdomen-normal bowel sounds, nontender, no hepatosplenomegaly Extremities-no cyanosis, clubbing, or edema Neuro-cranial nerves II through XII intact, motor and sensory function within normal limits, strength symmetrical with generalized weakness, no focal deficits Psych-normal affect, normal mood Results & Data Results & Data ([facility]) Vital Signs (Past 12 Hours) Vital Signs Temp Pulse Resp BP Pulse Ox O2 Del Method 10/08/22 12:41 36.9 C 90 18 152/78 H 94 Room Air 10/08/22 07:43 Room Air 10/08/22 07:25 36.5 C 85 20 148/76 H Room Air 10/08/22 04:41 36.4 C L 84 16 123/76 90 Room Air Laboratory Results 10/04/22 05:35 10/08/22 05:50 PG Care Time/CCT Total # of Minutes Spent Total Time Spent with Patient: Total time spent is greater than 50% in coordination of care (as documented) at patient's floor/unit and/or counseling patient: Coding Level of Care Code 52724 Subseq Hosp Care Lvl 3 Diagnoses E coli enteritis A04.4 Hypokalemia E87.6 Hypomagnesemia E83.42 Acute UTI N39.0 Weakness R53.1 SVT (supraventricular tachycardia) I47.1 Cancer related pain G89.3 Small cell lung cancer C34.90 Type 2 diabetes mellitus E11.9 Elevated troponin R77.8 History of cigarette smoking Z87.891 Hyperlipidemia E78.5 Mechanical deep vein thrombosis (DVT) prophylaxis in place Z78.9
[2022-10-08] MEDS ORDERED: OPTIRAY 350 100ml IV ONE (13:30)
[2022-10-08] MEDS: MAGNESIUM SULFATE / D5W 1 GM/100 ML BAG IV SCH ×3 (13:56→17:24)
--- NOTE | 2022-10-08 14:27 | CT Scan Report ---
CT OF THE CHEST WITH IV CONTRAST CLINICAL HISTORY: Lung cancer. COMPARISON STUDY: No previous studies for comparison. TECHNIQUE: Following IV administration of 90 mL of Optiray, helical axial images of the chest were o btained. Sagittal and coronal reconstructions were viewed as well as maximal intensity projections o n an independent 3-D workstation. Automated exposure control was utilized for the study. A dose low ering technique was utilized adhering to the principles of ALARA. CT DOSE: 427.52 mGycm FINDINGS: Left internal jugular [id number] is in place. No central pulmonary emboli are identifie d. There is extensive mitral annular calcification. The size of the heart is normal. There is no nikhil cardial effusion. The previously described right upper lobe mass has significantly decreased in size since exam of August 18, 2022. Exact measurements are difficult to obtain given adjacent collapsed l diana. This lesion measures approximately 5.2 x 4.4 cm. Associated mediastinal/right hilar conglomerate adenopathy measures 3.8 x 3.7 cm on this exam. It previously measured 6 x 5.8 cm. SVC invasion has i mproved. Additional enlarged mediastinal lymph nodes have significantly decreased in size. A right pa ratracheal lymph node on image 87 measures 1.3 x 1.1 cm. It previously measured 2.3 x 1.8 cm. Right u pper lobe aeration has significantly improved. Small bilateral pleural effusions are present. There i s no pneumothorax. There is mild interlobular septal thickening. Underlying emphysema is present. Mul tiple skeletal lesions are again noted. These were shown on prior CT and MRI. Response to therapy wit hin skeletal lesions is difficult to assess by CT. Numerous hepatic metastases are again noted. These have decreased in size since prior exam as well. Index right hepatic dome lesion measures 4 cm. It p reviously measured 4.7 cm. An additional central hepatic lesion on image 240 measures 2.6 cm. It prev iously measured 3.5 cm. Bilateral adrenal metastases are partially imaged on this exam. There are gal lstones within the gallbladder. IMPRESSION: 1. Significant decrease in size of the primary lesion within the right upper lobe and associated medi astinal and right hilar lymphadenopathy since chest CT of August 18, 2022. Improved right upper lobe aeration. The findings represent a partial treatment response. Mild to moderate decrease in size of hepatic metastases. 2. Small bilateral pleural effusions. 3. Emphysema. ACT 112: Negative or not required by law. Electronically signed by: Elan Dotson M.D. 10/08/2022 2:25 PM
[2022-10-08] MEDS ORDERED: MoRPHine SULFATE 2 MG/ML CARP IV ONE (18:00)
[2022-10-08] MEDS: allopurinoL 300 MG TAB PO SCH (21:02)
[2022-10-08] MEDS: busPIRone 5 MG TAB PO SCH (21:05)
[2022-10-08] MEDS: fentaNYL 25 MCG/HR TDSY TD SCH (21:08)
[2022-10-08] MEDS: fentaNYL 12 MCG/HR TDSY TD SCH (21:08)
[2022-10-08] MEDS: ONDANSETRON INJ 2 MG/ML 2 ML VIAL IV PRN (23:40)
[2022-10-09] MEDS: LORazepam 0.5 MG TAB PO PRN ×3 (01:55→20:42)
[2022-10-09 06:30] LABS: Calcium 7.6 mg/dl (8.5-10.1); Creatinine Clr Calc Pharmacy 104.6 ml/min; Est GFR (Non-African American) 97.5 ml/min; Magnesium 1.8 mg/dl (1.7-2.4); Potassium 3.3 mmol/L (3.5-5.1)
[2022-10-09] MEDS: CHECK fentaNYL PATCH PLACEMENT SCH ×2 (08:02→17:47)
[2022-10-09] MEDS: PANTOprazole 40 MG TAB PO SCH (08:03)
[2022-10-09] MEDS: AMIODARONE 200 MG TAB PO SCH ×2 (08:03→20:46)
[2022-10-09] MEDS: SODIUM CHLORIDE 1 GM TABLET PO SCH (08:03)
[2022-10-09] MEDS: busPIRone 5 MG TAB PO SCH ×2 (08:03→20:46)
[2022-10-09] MEDS: ENOXAPARIN INJ 30 MG/0.3 ML SYR SQ SCH (08:03)
[2022-10-09] MEDS: POTASSIUM CHLORIDE 10 MEQ TABCR PO SCH ×2 (08:03→20:46)
[2022-10-09] MEDS: DICLOFENAC SOD 1% GEL 100 GM TUBE EXT SCH ×2 (08:04→20:46)
[2022-10-09] MEDS: HEPARIN 100 UNIT/ML 5ML FLUSH FLUSH PRN (09:04)
[2022-10-09] MEDS: INSULIN ASPART PER UNIT SC SCH ×4 (09:14→20:55)
[2022-10-09] MEDS ORDERED: POTASSIUM CHLORIDE CRTAB 20 MEQ TABCR PO STA (10:16)
--- NOTE | 2022-10-09 12:03 | Discharge Summary ---
Date of Service October 09, 2022 Admission HPI Per Admitting Provider Attending: Dr. Mario Hunter This is a very pleasant 77-year-old female with a past medical history including heavy tobacco abuse with an [id number] history who quit smoking 6 years ago, history of ethanol abuse who quit drinking 6 years ago, diabetes mellitus type 2 on metformin, COPD, CHF, supraventricular tachycardia on amiodarone, gout, depression, anxiety, GERD, chronic pain on a fentanyl patch, obesity secondary to excess calories. She presents with weakness and urine tract infection she failed outpatient therapy and presents with electrolyte imbalance, hypotension, and from weakness. Urine culture reveals E. coli with some resistance to Augmentin, ampicillin, Unasyn, cefazolin, and Bactrim. Patient denies any fever. She has no hematuria. She has no abdominal pain. She does report some incontinence. She also reports some diarrhea over the last several days with 2-3 watery bowel movements a day. She denies any hematochezia or melena. She has no previous history of GI bleed. She has no suprapubic pain. She does complain of increased edema of the bilateral lower extremities. She reports that this is been going on for several days. She has no asymmetrical edema. She has no pleuritic pain or calf pain. Patient was previously admitted to [facility] 08/17/2022 to 08/28/2022 for acute back pain. Imaging revealed numerous rim-enhancing hypodense lesions in the liver. Imaging reveals what appears to be widely metastatic cancer this suspect to be primary lung. Patient has not had tissue biopsy of the lung. A CT-guided biopsy of liver was completed and at that time and pathology revealed small cell carcinoma of the lung primary. Patient is known to have stage IV primary small cell lung cancer with metastasis to the liver, spine, and most likely brain. She does follow with oncology as well as radiation oncology. Patient has also seen palliative care. Note reviewed from 09/23/2022. Continue focus on palliation. Patient does confirm that she is a level V DNR/DNI but would like electrical cardioversion if needed as well as IV medications as appropriate. Patient does state that she is aware of the severity of her disease. She also states that her is very ill at home with cardiac issues and that they are having difficulty managing treatment and health plan at home. She does have a 57-year-old son and a 55-year-old daughter who are local and very active in their care. Previous smoker with [id number] smoking history who quit smoking at age 71 Previous history of ethanol abuse. She quit drinking at age 71 Patient has never had COVID. She has been vaccinated with Pfizer x2+3 boosters. Patient lives at home with her . They are struggling to perform ADLs and may need assistance at the home with medication management. They do apparently have home health scheduled to start helping at the home. 08/17/2022. X-ray of the left hip and pelvis. No acute fracture within the pelvis or hips. Mild bilateral hip osteoarthritis. 08/17/2022. CT of the abdomen and pelvis. Numerous ring-enhancing hypodense lesions in the liver are concerning for metastatic disease in this patient status post hemicolectomy. No evidence of diverticulitis. There is nodularity of the adrenal glands bilaterally, nonspecific. Thickening of gastric wall may be secondary to undistended, clinical correlation for gastritis is recommended. Lytic lesion arising from the right aspect of the L5 vertebral body with an associated soft tissue mass and pathologic fracture. 08/17/2022. With these findings she was advised by the primary care provider to report to the emergency room for control of pain and further evaluation to determine source of metastatic disease. 08/18/2022. CT chest. 1. Right upper lobe mass consistent with central bronchogenic carcinoma which occludes the right upper lobe bronchus and results in subtotal right upper lobe collapse. Mediastinal involvement which results in moderate SVC narrowing due to invasion. Pulmonary consultation is recommended. 2. Associated jolene, hepatic, adrenal and skeletal metastases, as detailed above. 3. Emphysema. 4. Trace right pleural effusion. 08/18/2022. MRI cervical spine. 1. Multiple scattered metastatic lesions seen throughout the cervical spine. No pathologic fractures or epidural extension at this time. 2. Partial visualization of the patient's known right upper lobe mass. 08/18/2022. MRI thoracic spine. 1. Multiple scattered metastatic lesions seen throughout the thoracic spine. No pathologic fractures or epidural involvement at this time. 2. Partial visualization of the patient's known right upper lobe mass and hepatic lesions. 08/18/2022. MRI lumbar spine. 1. Extensive multifocal marrow replacement consistent with metastatic disease. L4 and L5 pathologic fractures with mild loss of height. Possible minimal epidural extension of tumor at the L4 and L5 levels, as described above. Post contrast images compromised by motion artifact. No large epidural component. 2. Severe central canal stenosis at L4-L5 due to facet arthrosis, ligamentous hypertrophy and anterolisthesis with uncovering of the disc. Mild to moderate central canal stenosis at L3-L4. 3. Multilevel neural femoral stenosis, as above. 08/19/2022. Liver biopsy ultrasound. Pathology results pending. 08/19/2022. Palliative care consultation. 08/20/2022. Consult with Dr. Qiu from pulmonary in the hospital. At this time. No indication for additional pulmonary procedures unless the liver biopsyFails to provide diagnosis.Agrees with MRI of brain to evaluate for occult COMMUNITY HEALTH PROGRAM COORDINATOR metastasis. 09/20/2022. Ultrasound venous Doppler of the bilateral lower extremities revealed no evidence of deep vein thrombosis 09/30/2022. Portable chest x-rayShows placement of a left IJ [id number] catheter.Right upper lobe mass redemonstrated with improved aeration of the right upper lobe compared to the 08/24/2022 study.Mild right upper lobe opacities may represent a degree of postobstructive pneumonitis.There is chronic emphysema with chronic interstitial coarsening noted.No pleural effusionOr pneumothorax. Principal Diagnosis Small cell CA lung with brain and spine metastases Generalized debilitation Discharge Exam obese , pleasant,lying flat in bed,lucid historian moist tongue Short of breath mid sentence anicteric sclera thin cropped hair Chest CTA CVS: S1 S2 Abd- soft, non tender COMMUNITY HEALTH PROGRAM COORDINATOR : 5/5 elbow flexors, and toe plantar flexors Normal insight , and judgement, nervous affect with anxiety Discharge Data Allergies Allergy/AdvReac Type Severity Reaction Status Date / Time No Known Allergies Allergy Verified 09/27/22 11:45 Consultations 09/30/22 08:16 ED Decision to Admit Stat 09/30/22 11:55 Consult Palliative Care Routine Ordered Studies 10/08/22 12:33 CT chest diagnostic w con Routine Hospital Course (1) Weakness: Patient with widespread metastatic disease with small cell lung cancer primary. Currently admitted with diarrhea, dehydration, and electrolytes derangements. Continue OT and PT. (2) E coli enteritis: diarrhea has resolved. Treated E coli enteritis with azithromycin (3) Hypokalemia: Recurrent. Improving with twice daily oral potassium. Needs to be watchedhas been given p.o. potassium on day of discharge as potassium 3.4 despite 10 mill equivalent twice a day. P.o. intake is excellent on high potassium foods need to be reinforced with periodic check of labs. Check BMP . (4) Hypomagnesemia: 1.8 on day of discharge. That is normal (5) Acute UTI: Patient diagnosed with urinary tract infection outpatient and failed treatment with Nitrofurantoin (Macrobid). Treated as inpatient with ceftriaxone x 3 days. (6) SVT (supraventricular tachycardia): Multiple episodes of SVT during the patient's last admission in August 2022. Currently on amiodarone 200 mg p.o. BID for suppression. On 10/01, put her back on amiodarone IV as her runs of SVT were becoming predominant (more SVT than sinus; no afib). This has resolved. Returned to PO amiodarone on 10/02. has been in NSR in 80 s last 24 h before discharge 10/09/22 (7) Cancer related pain: Continue home regimen of pain medicine. Palliative medicine has been involved and appreciate pain meds management. Fentanyl dose was adjusted. (8) Small cell lung cancer: Recent diagnosis by liver biopsy in with lung primary, August 2022. Widespread metastasis to liver, bone, brain. Ongoing RAD TX of the lumbar spine. Scheduled chemotherapy has been delayed. Continue pain management. Oncology has recommended follow-up CT scanning of the chest, abdomen, pelvis and brain MRI which have been ordered (9) Type 2 diabetes mellitus: A1c was 6.9% this admission. Patient is not on home insulin. ADA diet. Metformin was stopped. Blood sugars 89, 106, 80, 101 in the last 24 hours without any medicine. P.o. intake has been excellent (10) Elevated troponin: No chest pain or tightness. No changes on EKG. Most likely secondary to ischemic demand. No evidence of acute coronary syndrome. (11) History of cigarette [id number] smoking history. Quit smoking at age 71. Suspected COPD but cannot locate pulmonary function testing results. Patient has rescue inhaler at home with levalbuterol (Xopenex) and no other pulmonary treatment. Treat supportively and maintain SaO2 between 88 and 92% (12) Hyperlipidemia: Patient previously was on a statin. Continue heart healthy diet (13) Mechanical deep vein thrombosis (DVT) prophylaxis in place: [facility] Patient is a DNR/DNI but would agree to electrical cardioversion or IV medications to treat her arrhythmias. (14) Weakness generalized: Needs assistance to even stand up. assisted facility Plan [facility]. Is quite anxious. Palliative care saw her and stopped morphine. Oxycodone was started. Fentanyl patch dose was raised from 25 to 37.5 mcg . scheduled chemotherapy has been postponed. Total Time Total Time Spent Total Time Spent (In Minutes): 40 Discharge Plan Discharge Items Patient Disposition: Transfer Inpatient Rehab Fac Reason For Visit: WEAKNESS Discharge Diagnosis: Also early CA lung with radiation to the lumbar spine as well as brain, ongoing radiation therapy and chemotherapy deferred Condition on Discharge: Fair Activity: As commented below Activity Comment: Per SNF recommendations by PT Non-emergency contact: Primary Care Provider Call non-emergency contact if: you have any medication questions Follow-up/Referrals: Delbert Miramontes MD [Primary Care Provider] - Maria T Miranda PA-C [Physician Systems Librarian] - 01/25/23 2:15 pm Diet: Carb Consistent or DM2 Addtl Attending Provider Instructions: high potassium food intake as potassium running low despite supplementation 10 mEq twice daily Pending Studies at Discharge: No Stand-Alone Forms: [employer] Skilled Items Patient informed of condition?: Yes DNR: Yes Discharge Level of Care: Skilled Communicable Disease: No Discharge Prognosis: Stable Lines: None Urinary Catheter: No Medications and DC Order Prescriptions: New buspirone 5 mg Tablet 5 mg PO BID Qty: 7 0RF polyethylene glycol 3350 [Miralax] 17 gram Powder In Packet 17 g PO DAILY PRN (Reason: constipation) Qty: 15 0RF magnesium hydroxide [Milk of Magnesia] 400 mg/5 mL Suspension 30 ml PO Q12H PRN (Reason: stomach upset) Qty: 30 0RF oxycodone 5 mg Tablet 5 mg PO Q4H PRN (Reason: pain) Qty: 10 0RF potassium chloride 10 mEq Tablet,Er Particles/Crystals 10 meq PO BID Qty: 30 0RF MAG-AL 200-200 mg/5 mL Suspension 15 ml PO Q4H PRN (Reason: dyspepsia) Qty: 15 0RF fentanyl 12 mcg/hr Patch 72 Hour 12 mcg transdermal Q72H Qty: 20 0RF diclofenac sodium [Voltaren Arthritis Pain] 1 % Gel 1 g EXT BID Qty: 100 0RF Continued fentanyl 25 mcg/hr patch 72 hour 1 patch transdermal Q72H furosemide [Lasix] 20 mg tablet 10 mg PO DAILY lorazepam [Ativan] 0.5 mg tablet 0.5 mg PO TID PRN Label Comments: has not been taking omeprazole 20 mg capsule,delayed release(DR/EC) 20 mg PO QAM Qty: 90 3RF acetaminophen [Tylenol Extra Strength] 500 mg tablet 1,000 mg PO QID PRN (Reason: Fever Or Pain) amiodarone 200 mg Tablet 200 mg PO BID Qty: 60 2RF allopurinol 300 mg Tablet 300 mg PO HS Qty: 30 5RF sodium chloride 1 gram tablet 1,000 mg PO DAILY Qty: 30 2RF levalbuterol tartrate [Xopenex HFA] 45 mcg/actuation Hfa Aerosol Inhaler 2 puff inhalation Q6H PRN (Reason: cough/wheeze/shortness of breath) Qty: 1 0RF Rx Instructions: use with spacer device Discontinued cholecalciferol (vitamin D3) 50 mcg (2,000 unit) capsule 50 mcg PO DAILY (DME) OneTouch Verio test strips Strip See Rx Instructions .ROUTE .MEDSUPPLY Qty: 100 3RF Rx Instructions: tests one time daily (DME) lancets [OneTouch Delica Lancets] 33 gauge misc See Rx Instructions .ROUTE .MEDSUPPLY Qty: 100 3RF Rx Instructions: use to test once daily Culturelle 10 billion cell capsule 1 cap PO QAM metformin 500 mg tablet extended release 24 hr 1,000 mg PO BID Rx Instructions: TAKE 2 TABLETS BY MOUTH TWICE DAILY morphine 15 mg Tablet 15 mg PO Q4H PRN (Reason: pain) Qty: 30 0RF buspirone 5 mg tablet 5 mg PO TID PRN (Reason: anxiety) Qty: 30 0RF Discharge Orders: Discharge Order (Routine); Ordered 10/09/22 Ordered By: Arturo Jimenez/Other Patient Handouts: Managing Type 2 Diabetes Admission Data Admit Date/Time: 09/30/22 10:03 Attending Provider: Arturo Roach Admit Provider: Mario Hunter Primary Care Provider: Delbert Miramontes Other Providers: Mario Hunter ; Stefanie Goel ; Ihsan Newton [facility] ; [facility] ; [facility], ; Gelacio Alvarado Coding Level of Care Code D/C DAY MANAGEMENT >30 MINS Diagnoses Weakness R53.1 E coli enteritis A04.4 Hypokalemia E87.6 Hypomagnesemia E83.42 Acute UTI N39.0 SVT (supraventricular tachycardia) I47.1 Cancer related pain G89.3 Small cell lung cancer C34.90 Type 2 diabetes mellitus E11.9 Elevated troponin R77.8 History of cigarette smoking Z87.891 Hyperlipidemia E78.5 Mechanical deep vein thrombosis (DVT) prophylaxis in place Z78.9 Weakness generalized R53.1
--- NOTE | 2022-10-09 15:44 | Hospitalist Progress Note ---
Date of Service October 09, 2022 Assessment & Plan (1) Weakness: Plan: Patient with widespread metastatic disease with small cell lung cancer primary. Currently admitted with diarrhea, dehydration, and electrolytes derangements. Continue OT and PT. (2) E coli enteritis: Plan: diarrhea has resolved. Treated E coli enteritis with azithromycin (3) Hypokalemia: Plan: Recurrent. Improving with twice daily oral potassium. Needs to be watchedhas been given p.o. potassium on day of discharge as potassium 3.4 despite 10 mill equivalent twice a day. P.o. intake is excellent on high potassium foods need to be reinforced with periodic check of labs. Check BMP . (4) Hypomagnesemia: Plan: 1.8 on day of discharge. That is normal (5) Acute UTI: Plan: Patient diagnosed with urinary tract infection outpatient and failed treatment with Nitrofurantoin (Macrobid). Treated as inpatient with ceftriaxone x 3 days. (6) SVT (supraventricular tachycardia): Plan: Multiple episodes of SVT during the patient's last admission in August 2022. Currently on amiodarone 200 mg p.o. BID for suppression. On 10/01, put her back on amiodarone IV as her runs of SVT were becoming predominant (more SVT than sinus; no afib). This has resolved. Returned to PO amiodarone on 10/02. has been in NSR in 80 s last 24 h before discharge 10/09/22 (7) Cancer related pain: Plan: Continue home regimen of pain medicine. Palliative medicine has been involved and appreciate pain meds management. Fentanyl dose was adjusted. (8) Small cell lung cancer: Plan: Recent diagnosis by liver biopsy in with lung primary, August 2022. Widespread metastasis to liver, bone, brain. Ongoing RAD TX of the lumbar spine. Scheduled chemotherapy has been delayed. Continue pain management. Oncology has recommended follow-up CT scanning of the chest, abdomen, pelvis and brain MRI which have been ordered (9) Type 2 diabetes mellitus: Plan: A1c was 6.9% this admission. Patient is not on home insulin. ADA diet. Metformin was stopped. Blood sugars 89, 106, 80, 101 in the last 24 hours without any medicine. P.o. intake has been excellent (10) Elevated troponin: Plan: No chest pain or tightness. No changes on EKG. Most likely secondary to ischemic demand. No evidence of acute coronary syndrome. (11) History of cigarette smoking: Plan: [id number] smoking history. Quit smoking at age 71. Suspected COPD but cannot locate pulmonary function testing results. Patient has rescue inhaler at home with levalbuterol (Xopenex) and no other pulmonary treatment. Treat supportively and maintain SaO2 between 88 and 92% (12) Hyperlipidemia: Plan: Patient previously was on a statin. Continue heart healthy diet (13) Mechanical deep vein thrombosis (DVT) prophylaxis in place: Plan: Being discharged to shelter facility today at 2 PM Patient is a DNR/DNI but would agree to electrical cardioversion or IV medications to treat her arrhythmias. (14) Weakness generalized: Plan: Needs assistance to even stand up. shelter facility Plan Was discharged to shelter facility today. However right could not be arranged is quite anxious. Palliative care saw her and stopped morphine. Oxycodone was started. Fentanyl patch dose was raised from 25 to 37.5 mcg . scheduled chemotherapy has been postponed. Admission and Anticipated Discharge Date Admission Date: September 30, 2022 Subjective Was impatient to leave but right could not be arranged today. Needing assistance to even sit stand by side of bed. Had no new complaints Physical Exam Physical Exam: Alert and pleasant, quite anxious Oriented to person, good insight and judgment Chest clear to auscultation Abdomen lax nontender GAS WELDER grossly intact Results & Data Results & Data ([facility]) Vital Signs (Past 12 Hours) Vital Signs Temp Pulse Pulse Resp BP Pulse Ox O2 Del Method 10/09/22 15:36 84 10/09/22 08:00 93 H 10/09/22 11:57 36.6 C 82 18 123/74 90 Room Air 10/09/22 08:20 36.5 C 84 16 129/73 92 Room Air 10/09/22 07:07 36.7 C 81 18 135/81 97 Room Air Laboratory Results Abnormal lab results 10/08/22 10/08/22 10/09/22 Range/Units 16:38 20:40 05:42 Sodium 135 L (136-145) mmol/L Potassium 3.3 L (3.5-5.1) mmol/L Chloride 97 L (98-107) mmol/L Carbon Dioxide 34 H (21-32) mmol/L Creatinine 0.42 L (0.6-1.2) mg/dl POC Glucose 112 H 106 H (70-99) mg/dl Calcium 7.6 L (8.5-10.1) mg/dl 10/09/22 Range/Units 07:38 Sodium (136-145) mmol/L Potassium (3.5-5.1) mmol/L Chloride (98-107) mmol/L Carbon Dioxide (21-32) mmol/L Creatinine (0.6-1.2) mg/dl POC Glucose 103 H (70-99) mg/dl Calcium (8.5-10.1) mg/dl Medications Administered Home Medications Medication Instructions Recorded Confirmed Last Taken Lactobacillus rhamnosus GG 10 1 cap PO QAM 10/15/19 09/20/22 Unknown billion cell capsule (Culturelle) acetaminophen 500 mg tablet 1,000 mg PO QID PRN Fever Or Pain 10/15/19 09/20/22 Unknown (Tylenol Extra Strength) omeprazole 20 mg capsule,delayed 20 mg PO QAM #90 caps 10/21/21 09/20/22 Unknown release blood sugar diagnostic (OneTouch #100 ea 11/16/21 09/20/22 Unknown Verio test strips) OneTouch Delica Lancets 33 gauge #100 ea 07/19/22 09/20/22 Unknown (lancets) metformin 500 mg tablet,extended 1,000 mg PO BID 08/17/22 09/20/22 Unknown release 24 hr allopurinol 300 mg tablet 300 mg PO HS #30 tabs 08/27/22 09/20/22 Unknown amiodarone 200 mg tablet 200 mg PO BID #60 tabs 08/27/22 09/20/22 Unknown buspirone 5 mg tablet 5 mg PO TID PRN anxiety #30 tabs 08/27/22 09/20/22 Unknown morphine 15 mg immediate release 15 mg PO Q4H PRN pain #30 tabs 08/27/22 09/20/22 Unknown tablet levalbuterol tartrate 45 2 puff inhalation Q6H PRN 08/28/22 09/20/22 Unknown mcg/actuation aerosol inhaler cough/wheeze/shortness of breath (Xopenex HFA) #1 g sodium chloride 1 gram tablet 1,000 mg PO DAILY #30 tabs 08/28/22 09/20/22 Unknown cholecalciferol (vitamin D3) 50 50 mcg PO DAILY 09/20/22 09/20/22 Unknown mcg (2,000 unit) capsule fentanyl 25 mcg/hr transdermal 1 patch transdermal Q72H 09/27/22 09/27/22 Unknown patch furosemide 20 mg tablet (Lasix) 10 mg PO DAILY 09/27/22 09/27/22 Unknown lorazepam 0.5 mg tablet (Ativan) 0.5 mg PO TID PRN 09/27/22 09/27/22 Unknown aluminum-magnesium hydroxide 200 15 ml PO Q4H PRN dyspepsia #15 mL 10/09/22 Unknown mg-200 mg/5 mL oral suspension (MAG-AL) buspirone 5 mg tablet 5 mg PO BID #7 tabs 10/09/22 Unknown diclofenac sodium 1 % topical gel 1 g EXT BID #100 grams 10/09/22 Unknown (Voltaren Arthritis Pain) fentanyl 12 mcg/hr transdermal 12 mcg transdermal Q72H #20 ea 10/09/22 Unknown patch magnesium hydroxide 400 mg/5 mL 30 ml PO Q12H PRN stomach upset 10/09/22 Unknown oral suspension (Milk of Magnesia) #30 mL oxycodone 5 mg tablet 5 mg PO Q4H PRN pain #10 tabs 10/09/22 Unknown polyethylene glycol 3350 17 gram 17 g PO DAILY PRN constipation #15 10/09/22 Unknown oral powder packet (Miralax) ea potassium chloride 10 mEq 10 meq PO BID #30 tabs 10/09/22 Unknown tablet,extended release(part/cryst) Active Medications Generic Name Dose Route Start Last Admin Trade Name Freq PRN Reason Stop Dose Admin Acetaminophen 1,000 mg 09/30/22 11:55 10/07/22 21:15 Acetaminophen 500 Mg Tab PO 10/30/22 11:54 1,000 mg QID PRN Administration Fever Or Pain Allopurinol 300 mg 09/30/22 21:00 10/08/22 21:02 Allopurinol 300 Mg Tab PO 10/30/22 20:59 300 mg HS ERNESTO Administration Amiodarone HCl 200 mg 09/30/22 21:00 10/09/22 08:03 Amiodarone 200 Mg Tab PO 10/30/22 20:59 200 mg BID ERNESTO Administration Buspirone HCl 5 mg 10/08/22 21:00 10/09/22 08:03 Buspirone 5 Mg Tab PO 11/07/22 20:59 5 mg BID ERNESTO Administration Diclofenac Sodium 1 gm 10/02/22 01:00 10/09/22 08:04 Diclofenac Sod 1% Gel 100 Gm Tube EXT 11/01/22 00:59 1 gm BID ERNESTO Administration Protocol Enoxaparin Sodium 30 mg 09/30/22 11:55 10/09/22 08:03 Enoxaparin Inj 30 Mg/0.3 Ml Syr SQ 10/30/22 11:54 30 mg QAM ERNESTO Administration Fentanyl 12 mcg 10/05/22 21:00 10/08/22 21:08 Fentanyl 12 Mcg/Hr Tdsy TD 10/19/22 20:59 12 mcg Q72H ERNESTO Administration Fentanyl 25 mcg 10/05/22 21:00 10/08/22 21:08 Fentanyl 25 Mcg/Hr Tdsy TD 10/19/22 20:59 25 mcg Q72H ERNESTO Administration Heparin Sodium (Porcine) 5 ml 10/02/22 01:55 10/09/22 09:04 Heparin 100 Unit/Ml 5ml Flush FLUSH 11/01/22 01:54 5 ml PRN PRN Administration Flush Insulin Aspart 0 units 09/30/22 11:55 10/09/22 12:58 Insulin Aspart Per Unit SC 10/30/22 11:54 Not Given ACHS ERNESTO Levalbuterol HCl 2 puffs 09/30/22 11:55 10/06/22 01:45 Levalbuterol Tartrate 15 Gm Hfa.Aer.Ad INH 10/30/22 11:54 2 puffs Q6R PRN Administration cough/wheeze/shortness of david Protocol Loperamide HCl 2 mg 10/01/22 17:12 10/06/22 19:42 Loperamide Hcl 2 Mg Cap PO 10/31/22 14:15 2 mg Q4H PRN Administration Loose Stool Lorazepam 0.5 mg 10/04/22 10:12 10/09/22 13:19 Lorazepam 0.5 Mg Tab PO 11/03/22 10:11 0.5 mg Q8H PRN Administration Anxiety, insomnia Miscellaneous 1 each 10/02/22 20:59 10/08/22 21:01 Fentanyl Patch Remove & Waste N/A 11/01/22 20:58 1 each Q3D ERNESTO Administration Miscellaneous 1 each 09/30/22 16:00 10/09/22 08:02 Check Fentanyl Patch Placement N/A 10/30/22 15:59 1 each QS ERNESTO Administration Ondansetron HCl 4 mg 09/30/22 11:55 10/08/22 23:40 Ondansetron Inj 2 Mg/Ml 2 Ml Vial IV 10/30/22 11:54 4 mg Q6H PRN Administration Nausea Oxycodone HCl 5 mg 10/04/22 10:18 10/08/22 23:40 Oxycodone Hcl Ir 5 Mg Tab (Immediate Release) PO 10/18/22 10:17 5 mg Q4H PRN Administration Pain, prior to procedures Pantoprazole Sodium 40 mg 10/01/22 09:00 10/09/22 08:03 Pantoprazole 40 Mg Tab PO 10/31/22 08:59 40 mg QAM ERNESTO Administration Protocol Potassium Chloride 10 meq 10/07/22 21:00 10/09/22 08:03 Potassium Chloride 10 Meq Tabcr PO 11/06/22 20:59 10 meq BID ERNESTO Administration Sodium Chloride 1 gm 09/30/22 12:30 10/09/22 08:03 Sodium Chloride 1 Gm Tablet PO 10/30/22 12:29 1 gm DAILY ERNESTO Administration PG Care Time/CCT Total # of Minutes Spent Total Time Spent with Patient: Total time spent is greater than 50% in coordination of care (as documented) at patient's floor/unit and/or counseling patient: Coding Level of Care Code 04965 Subseq Hosp Care Lvl 2 Diagnoses Weakness R53.1 E coli enteritis A04.4 Hypokalemia E87.6 Hypomagnesemia E83.42 Acute UTI N39.0 SVT (supraventricular tachycardia) I47.1 Cancer related pain G89.3 Small cell lung cancer C34.90 Type 2 diabetes mellitus E11.9 Elevated troponin R77.8 History of cigarette smoking Z87.891 Hyperlipidemia E78.5 Mechanical deep vein thrombosis (DVT) prophylaxis in place Z78.9 Weakness generalized R53.1
[2022-10-09] MEDS: oxyCODONE HCL IR 5 MG TAB (IMMEDIATE RELEASE) PO PRN (20:42)
[2022-10-09] MEDS: allopurinoL 300 MG TAB PO SCH (20:45)
[2022-10-10] MEDS: oxyCODONE HCL IR 5 MG TAB (IMMEDIATE RELEASE) PO PRN (04:36)
[2022-10-10] MEDS: LORazepam 0.5 MG TAB PO PRN (05:47)
[2022-10-10 06:46] LABS: BUN Creatinine Ratio 24.3 (10-20); Calcium 7.6 mg/dl (8.5-10.1); Creatinine Clr Calc Pharmacy 118.1 ml/min; Est GFR (African American) 117.8 ml/min; Est GFR (Non-African American) 101.6 ml/min; Potassium 4.1 mmol/L (3.5-5.1)
--- NOTE | 2022-10-10 08:53 | History & Physical Bridge Note ---
Date of Service October 10, 2022 History & Physical Bridge Note I have examined the patient, n seen her at 0845 h today. Discharge was canceled yesterday due to lack of transport. Patient leaving now for [facility], the [facility]. Patient was in street clothes when I saw her , and on the phone with her . She did not sleep well last night as pain med was delayed. Pain in lower back. No n/v/shortness of breath. Voiding fine after Boucher was taken out yesterday am. 132/77, 83, 16, 91% RA Chest was CTA. FUNCTIONAL ANALYST : grossly intact. She was in a chair. Affect calm today , normal insight and judgement - discharge order written
[2022-10-10] MEDS: DICLOFENAC SOD 1% GEL 100 GM TUBE EXT SCH (08:55)
[2022-10-10] MEDS: POTASSIUM CHLORIDE 10 MEQ TABCR PO SCH (08:55)
[2022-10-10] MEDS: ENOXAPARIN INJ 30 MG/0.3 ML SYR SQ SCH (08:55)
[2022-10-10] MEDS: busPIRone 5 MG TAB PO SCH (08:55)
[2022-10-10] MEDS: AMIODARONE 200 MG TAB PO SCH (08:55)
[2022-10-10] MEDS: CHECK fentaNYL PATCH PLACEMENT SCH ×2 (08:56)
[2022-10-10] MEDS: INSULIN ASPART PER UNIT SC SCH (08:56)
[2022-10-10] MEDS: SODIUM CHLORIDE 1 GM TABLET PO SCH (08:56)
[2022-10-10] MEDS: PANTOprazole 40 MG TAB PO SCH (08:56)
--- NOTE | 2022-10-20 06:18 | Coding Query ---
CODING QUERY To promote full compliance with coding requirements relating to patient care, provider participation is requested in all cases of vise hand uncertainty. Please assist us with the question(s) below: Please clarify the meaning of IVAN. IVAN is not a valid abbreviation. Thank you. ( xx ) Acute Kidney Injury ( ) Acute Kidney Insufficiency ( ) Other (Specify): Principal Diagnosis: "that condition established after study, to be chiefly responsible for occasioning the admission of the patient to the hospital for care." Co-Existing Principal Diagnosis: "when two or more diagnoses equally meet the criteria for principal diagnosis as determined by the circumstances of admission, diagnostic work up, and/or therapy provided, and the Alphabetic Index, Tabular List, or another coding guideline does not provide sequencing direction, any one of the diagnoses may be sequenced first." "When the physician has documented what appears to be a current diagnosis in the body of the record, but has not included the diagnosis in the final diagnostic statement, the physician should be asked whether the diagnosis should be added." (Source Coding Clinic 2 QTR90. p3-4) ALEXA
== END 2022-10-10 09:14 | DRG 690 ==
LOC: ED 06:23 → 4W 10:03 → SUATTDRO 10:03 → 4W 11:44

== ENCOUNTER 2022-10-27 19:54 | Inpatient (IN) ==
[2022-10-27] MEDS ORDERED: LACTATED RINGER'S 1,000 ML IV SCH (20:15)
[2022-10-27 20:17] LABS: Hematocrit (blood only) 32.1 % (34.1-44.9); Mean Corpuscular Hemoglobin 30.7 pg (25.0-34.0); Mean Corpuscular Hgb Conc 34.3 g/dL (32.0-36.0); Mean Corpuscular Volume 89.7 fL (80.0-100.0); Mean Platelet Volume 9.4 fL (9.4-12.3); Platelet Count 294 K/uL (130-400); RDW Coefficient of Variation 20.1 % (11.5-14.5); RDW Standard Deviation 65.1 fL (36.4-46.3); Red Blood Count 3.58 M/uL (3.93-5.22); White Blood Count 8.28 K/ul (4.8-10.8)
[2022-10-27 20:28] LABS: INR 1.2 (0.9-1.1); Partial Thromboplastin Time 27.3 Seconds (21.0-31.0); Prothrombin Time 12.2 Seconds (9.0-12.0)
[2022-10-27 20:36] LABS: Acanthocytes 1+; Anisocytosis Present; Basophils # (auto) 0.03 K/uL (0-0.2); Basophils % (auto) 0.4 %; Echinocytes 1+; Eosinophils # (auto) 0.01 K/uL (0-0.50); Eosinophils % (auto) 0.1 %; Immature Granulocytes % (auto) 3.6 %; Lymphocytes # (auto) 0.24 K/uL (1.2-3.4); Lymphocytes % (auto) 2.9 %; Monocytes # (auto) 0.16 K/uL (0.24-0.82); Monocytes % (auto) 1.9 %; Neutrophils # (auto) 7.54 K/uL (1.4-6.5); Neutrophils % (auto) 91.1 %; Polychromasia 1+
[2022-10-27 20:47] LABS: Albumin Level 2.9 gm/dl (3.4-5.0); BUN Creatinine Ratio 20.5 (10-20); Bilirubin,Total 0.9 mg/dl (0.2-1.0); Calcium 8.7 mg/dl (8.5-10.1); Creatinine Clr Calc Pharmacy 56.6 ml/min; Est GFR (African American) 83.8 ml/min; Est GFR (Non-African American) 72.3 ml/min; Globulin 2.9 gm/dl (2.5-4.0); Potassium 4.5 mmol/L (3.5-5.1); Total Protein 5.8 gm/dl (6.0-8.3)
--- NOTE | 2022-10-27 21:03 | XRay Report ---
XR hip LT 2V w pelvis CLINICAL HISTORY: fall, pain COMPARISON: CT of the abdomen and pelvis August 17, 2022. FINDINGS: There is an acute displaced left femoral neck fracture. No acute pelvic or proximal right femoral fractures are noted. Calcified fibroid is incidentally noted. IMPRESSION: Acute displaced left femoral neck fracture. ACT 112: Negative or not required by law. Electronically signed by: Elan Dotson M.D. 10/27/2022 9:01 PM
--- NOTE | 2022-10-27 21:23 | Emergency Department Note ---
Impression & Plan Closed hip fracture ED Provider Note INFORMANT: Patient ED PROVIDER(S): Chandra Pizarro DO CHIEF COMPLAINT: left hip pain/fall PLAN: Disposition: Admission Condition: Fair Outpatient prescription management: none Referral: I spoke with the hospitalist, who will see the patient for admission/observation and further evaluation and consultation. MEDICAL DECISION MAKING: This is a 77-year-old female who presents to the ED with a chief complaint of a fall and left hip pain. The patient states that she was reaching something in a cupboard when she lost her balance falling backwards onto the hip. Denies striking her head or loss of conscious. She has some mild shortening of her left leg with discomfort with movement. There is tenderness to palpation of the left hip. X-ray shows an acute left femoral neck fracture. Chest x-ray shows chronic findings. CBC did not show any significant leukocytosis. Mild chronic anemia. Chemistry panel was unremarkable. The patient was given some IV fluids. She will be seen by the hospitalist for further evaluation and care. Triage Nursing notes reviewed. Vital Signs: reviewed Prior /Outside records reviewed: none Differential diagnosis: Differential includes fracture, soft tissue injury, dislocation, neurologic or vascular injury, other. Diagnostics, as interpreted by me: 12 lead ECG: Sinus rhythm at a rate of 87. No ST elevation. No PVCs. Normal QTC. Cardiac Monitoring: Sinus rhythm Medical decision rules: none Imaging studies: X-ray of the left hip reveals an impacted femoral neck fracture. Chest x-ray: Reveals some chronic findings compared to another EKG. No clear infiltrate. Procedures: none. Critical care: none. HPI: This is a 77-year-old female who presents to the ED with a chief complaint of a fall and left hip pain. The patient states that she was reaching something in a cupboard when she lost her balance falling backwards onto the hip. Denies striking her head or loss of conscious. PAST MEDICAL HISTORY: See Below PAST SURGICAL HISTORY: See Below SOCIAL HISTORY: See Below HOME MEDICATIONS: See Below ALLERGIES: See Below VITALS: See Below PHYSICAL EXAMINATION: CONSTITUTIONAL/VITAL SIGNS: Reviewed GENERAL: Non-toxic in appearance. INTEGUMENTARY: Warm, dry, and [place]. HEAD: Normocephalic. EYES: without scleral icterus. ENT/OROPHARYNX: clear and moist. RESPIRATORY: No increased work of breathing. Lungs clear. CARDIOVASCULAR: Regular rate. Regular rhythm. GI/ABDOMEN: Soft and nontender. . EXTREMITIES: Left leg is slightly shortened. Discomfort with any range of motion in the left hip area. Mild tenderness to the left hip. NEUROLOGICAL: Intact without focal deficits. PSYCHIATRIC: Normal affect. MUSCULOSKELETAL: Normal. TRIAGE NURSING DOCUMENTATION REVIEWED. Past Med/Surg History Medical History Alcohol intoxication Blood loss Cancer related pain History of cigarette smoking Hyperlipidemia Hypertension Hyponatremia Hypotension Liver lesion Metastatic cancer Widespread Stage IV Met Ca likely lung primary, bx needed, 08/19/22 Open tibial fracture Palliative care encounter Pathologic lumbar vertebral fracture Sensorineural hearing loss of both ears Small cell lung cancer SVT (supraventricular tachycardia) Type 2 diabetes mellitus Surgical History History of ankle surgery broken ankle-2014 at [facility] History of appendectomy History of hemicolectomy January 2016--[facility] History of tonsillectomy History of tubal ligation Port-A-Cath in place (08/24/22) Aport Placement(Left) - Edwin Roa DO, FACS Family History Sister Primary adenocarcinoma of vagina Father Asthma Hypertension Macular degeneration Pulmonary embolism Mother Emphysema lung Brother Macular degeneration Denies family history of Ovarian cancer Prostate cancer Myocardial infarction Breast cancer Colorectal cancer Social History Smoking Status: Former smoker Tobacco Type: Cigarettes packs per day: 2; Second Hand Exposure: No; Hx Alcohol Use: No Hx Substance Use: No Preferred Language: Lao Communication Ability: Effective Visual Impairment: No Limitations Hearing Ability: Normal Housing Grant Analyst Required: No Beliefs That Will Affect Care: None marital status: Current Living Situation: Spouse current occupational status: retired How many Children do You have: 2 Feels Safe at Home: Yes Childhood Exposure to Second-Hand Smoke: Yes caffeine: Yes (coffee 4 cups a day ) Dental Care, Regularly: Yes Physical Activity Frequency: Daily Physical Activity Frequency Comment: bicycle Seatbelt Use: always Sunscreen Use: Yes Assistive Devices: Glasses, Hearing Aid - Bilateral, Walker and Wheelchair Allergies Allergies Allergy/AdvReac Type Severity Reaction Status Date / Time No Known Allergies Allergy Verified 09/27/22 11:45 Home Meds Home Medications Medication Instructions Recorded Confirmed acetaminophen 500 mg tablet 1,000 mg PO QID PRN Fever Or Pain 10/15/19 09/20/22 (Tylenol Extra Strength) fentanyl 25 mcg/hr transdermal 1 patch transdermal Q72H 09/27/22 09/27/22 patch furosemide 20 mg tablet (Lasix) 10 mg PO DAILY 09/27/22 09/27/22 lorazepam 0.5 mg tablet (Ativan) 0.5 mg PO TID PRN 09/27/22 09/27/22 Previous Rx's Medication Instructions Recorded omeprazole 20 mg capsule,delayed 20 mg PO QAM #90 caps 10/21/21 release allopurinol 300 mg tablet 300 mg PO HS #30 tabs 08/27/22 amiodarone 200 mg tablet 200 mg PO BID #60 tabs 08/27/22 levalbuterol tartrate 45 2 puff inhalation Q6H PRN 08/28/22 mcg/actuation aerosol inhaler cough/wheeze/shortness of breath (Xopenex HFA) #1 g sodium chloride 1 gram tablet 1,000 mg PO DAILY #30 tabs 08/28/22 aluminum-magnesium hydroxide 200 15 ml PO Q4H PRN dyspepsia #15 mL 10/09/22 mg-200 mg/5 mL oral suspension (MAG-AL) buspirone 5 mg tablet 5 mg PO BID #7 tabs 10/09/22 diclofenac sodium 1 % topical gel 1 g EXT BID #100 grams 10/09/22 (Voltaren Arthritis Pain) fentanyl 12 mcg/hr transdermal 12 mcg transdermal Q72H #20 ea 10/09/22 patch magnesium hydroxide 400 mg/5 mL 30 ml PO Q12H PRN stomach upset 10/09/22 oral suspension (Milk of Magnesia) #30 mL oxycodone 5 mg tablet 5 mg PO Q4H PRN pain #10 tabs 10/09/22 polyethylene glycol 3350 17 gram 17 g PO DAILY PRN constipation #15 10/09/22 oral powder packet (Miralax) ea potassium chloride 10 mEq 10 meq PO BID #30 tabs 10/09/22 tablet,extended release(part/cryst) Results & Data (ED) Vital Signs Vital Signs - 24 hr 10/27/22 19:38 Temperature 36.3 C L Temperature Source Oral Pulse Rate 85 Respiratory Rate 18 Respiratory Effort / Characteristics Non-Labored Respiratory Depth Normal Blood Pressure 97/60 L Blood Pressure Mean 72 Pulse Oximetry 95 Oxygen Delivery Method Room Air Sepsis Recent Fever Within 48 Hours No Sepsis New/Unexplained Change in Mental Status No Sepsis Action Taken by Nursing No Action Required Laboratory Data 10/27/22 20:09 10/27/22 20:09 Lab Results 10/27/22 10/27/22 10/27/22 Range/Units 20:09 20:09 20:09 WBC 8.28 (4.8-10.8) K/ul RBC 3.58 L (3.93-5.22) M/uL Hgb 11.0 L (12.0-16.0) g/dl Hct 32.1 L (34.1-44.9) % MCV 89.7 (80.0-100.0) fL MCH 30.7 (25.0-34.0) pg MCHC 34.3 (32.0-36.0) g/dL RDW Std Deviation 65.1 H (36.4-46.3) fL RDW Coeff of Charlie 20.1 H (11.5-14.5) % Plt Count 294 (130-400) K/uL MPV 9.4 (9.4-12.3) fL Immature Gran % (Auto) 3.6 % Neut % (Auto) 91.1 % Lymph % (Auto) 2.9 % [place] % (Auto) 1.9 % Eos % (Auto) 0.1 % Baso % (Auto) 0.4 % Neut # (Auto) 7.54 H (1.4-6.5) K/uL Lymph # (Auto) 0.24 L (1.2-3.4) K/uL [place] # (Auto) 0.16 L (0.24-0.82) K/uL Eos # (Auto) 0.01 (0-0.50) K/uL Baso # (Auto) 0.03 (0-0.2) K/uL Immature Gran # (Auto) 0.30 H (0.00-0.02) K/uL Polychromasia 1+ Anisocytosis Present Echinocytes 1+ Acanthocytes (Spur) 1+ PT 12.2 H (9.0-12.0) Seconds INR 1.2 H (0.9-1.1) APTT 27.3 (21.0-31.0) Seconds PTT Ratio 1.0 Sodium 130 L (136-145) mmol/L Potassium 4.5 (3.5-5.1) mmol/L Chloride 95 L (98-107) mmol/L Carbon Dioxide 24 (21-32) mmol/L Anion Gap 11 (3-11) BUN 16 (6-23) mg/dl Creatinine 0.78 (0.6-1.2) mg/dl Est Cr Clr Drug Dosing 56.6 ml/min Est GFR ( Amer) 83.8 ml/min Est GFR (Non-Af Amer) 72.3 ml/min BUN/Creatinine Ratio 20.5 H (10-20) Glucose 161 H (70-99(Fasting)) mg/dl Calcium 8.7 (8.5-10.1) mg/dl Total Bilirubin 0.9 (0.2-1.0) mg/dl AST 23 (13-39) U/L ALT 19 (7-52) U/L Alkaline Phosphatase 254 H (34-104) U/L Total Protein 5.8 L (6.0-8.3) gm/dl Albumin 2.9 L (3.4-5.0) gm/dl Globulin 2.9 (2.5-4.0) gm/dl Albumin/Globulin Ratio 1.0 (0.9-2) Administered Medications Lactated Ringer's (Lr) 1,000 mls @ 75 mls/hr IV .[id number] ERNESTO Stop: 11/26/22 20:14 Last Admin: 10/27/22 20:16 Dose: 75 mls/hr Documented By: THOR Imaging Data Radiologist's Impression: Hip/Pelvis X-Ray 10/27/22 20:02 XR hip LT 2V w pelvis CLINICAL HISTORY: fall, pain COMPARISON: CT of the abdomen and pelvis August 17, 2022. FINDINGS: There is an acute displaced left femoral neck fracture. No acute pelvic or proximal right femoral fractures are noted. Calcified fibroid is incidentally noted. IMPRESSION: Acute displaced left femoral neck fracture. ACT 112: Negative or not required by law. Electronically signed by: Elan Dotson M.D. 10/27/2022 9:01 PM Discharge Plan Visit Data Chief Complaint: Fall ED Provider: Chandra Pizarro Discharge Problem: Closed hip fracture Patient Disposition: Admitted As Inpatient Forms Stand Alone Forms: My [facility] Prescriptions Prescriptions: No Action fentanyl 25 mcg/hr patch 72 hour 1 patch transdermal Q72H furosemide [Lasix] 20 mg tablet 10 mg PO DAILY lorazepam [Ativan] 0.5 mg tablet 0.5 mg PO TID PRN Label Comments: has not been taking omeprazole 20 mg capsule,delayed release(DR/EC) 20 mg PO QAM Qty: 90 3RF acetaminophen [Tylenol Extra Strength] 500 mg tablet 1,000 mg PO QID PRN (Reason: Fever Or Pain) amiodarone 200 mg Tablet 200 mg PO BID Qty: 60 2RF allopurinol 300 mg Tablet 300 mg PO HS Qty: 30 5RF sodium chloride 1 gram tablet 1,000 mg PO DAILY Qty: 30 2RF levalbuterol tartrate [Xopenex HFA] 45 mcg/actuation Hfa Aerosol Inhaler 2 puff inhalation Q6H PRN (Reason: cough/wheeze/shortness of breath) Qty: 1 0RF Rx Instructions: use with spacer device buspirone 5 mg Tablet 5 mg PO BID Qty: 7 0RF polyethylene glycol 3350 [Miralax] 17 gram Powder In Packet 17 g PO DAILY PRN (Reason: constipation) Qty: 15 0RF magnesium hydroxide [Milk of Magnesia] 400 mg/5 mL Suspension 30 ml PO Q12H PRN (Reason: stomach upset) Qty: 30 0RF oxycodone 5 mg Tablet 5 mg PO Q4H PRN (Reason: pain) Qty: 10 0RF potassium chloride 10 mEq Tablet,Er Particles/Crystals 10 meq PO BID Qty: 30 0RF MAG-AL 200-200 mg/5 mL Suspension 15 ml PO Q4H PRN (Reason: dyspepsia) Qty: 15 0RF fentanyl 12 mcg/hr Patch 72 Hour 12 mcg transdermal Q72H Qty: 20 0RF diclofenac sodium [Voltaren Arthritis Pain] 1 % Gel 1 g EXT BID Qty: 100 0RF Referrals Referrals: Delbert Miramontes MD [Primary Care Provider] -
--- NOTE | 2022-10-27 21:25 | XRay Report ---
SUPINE PORTABLE AP CHEST RADIOGRAPH CLINICAL HISTORY: Hip fracture. Lung cancer. COMPARISON STUDY: Chest radiograph September 30, [address] October 08, 2022. FINDINGS: Left internal jugular Wubvyb-d-Bjew is in place. There is no pneumothorax or pleural effusi on. Cardiomegaly is unchanged. No pneumothorax identified on supine exam. Underlying emphysema. Mild interstitial thickening is likely chronic. Right upper lobe mass and associated mediastinal and right hilar lymphadenopathy is better depicted on prior chest CT. IMPRESSION: 1. No acute cardiopulmonary findings. No significant change in appearance of the chest. 2. Right upper lobe mass and associated lymphadenopathy, better depicted on prior chest CT. ACT 112: Negative or not required by law. Electronically signed by: Elan Dotson M.D. 10/27/2022 9:24 PM
[2022-10-27] MEDS: MoRPHine SULFATE 2 MG/ML CARP IV PRN ×2 (22:15→23:13)
--- NOTE | 2022-10-27 22:19 | History & Physical Report ---
Date of Service October 27, 2022 Assessment & Plan (1) Closed hip fracture: Plan: 77yo female with a history of lung cancer (s/p recent radiation treatments), HTN, HLD, T2DM, gout, and MARI presents with left hip pain after a fall at home. Acute left hip fracture Patient presents with acute left hip pain after a mechanical fall at home Pain control: Patient's home fentanyl patch scheduled Ibuprofen prn mild pain Morphine prn mod/severe pain Ortho consulted NPO midnight pending possible orthopedic procedure PT/OT ordered Hyponatremia Suspect secondary to poor PO intake; currently euvolemic but likely secondary to IVF started in ED Trend BMP DM2 HbA1c 6.9% (09/2022) Patient's home regimen held on admission Continue BSG checks, sliding-scale insulin, hypoglycemic protocol HTN: BP currently well-controlled, patient not on BP meds at home - continue to monitor History of SVT: continue home amiodarone MARI: home buspar Gout: home allopurinol FEN: NPO at midnight pending possible orthopedic procedure, LR@75mL/hr Code status: DNI (chest compressions OK, defibrillation OK) DVT ppx: lovenox Consults: orthopedic surgery PT/OT: consulted Dispo: med/surg (2) Hyperlipidemia: (3) Hypertension: (4) Small cell lung cancer: (5) Type 2 diabetes mellitus: (6) Anxiety: History of Present Illness Primary Care Provider: Delbert Miramontes MD 77yo female with a history of lung cancer (s/p recent radiation treatments), HTN, HLD, T2DM, OA, and MARI presents with left hip pain after a fall at home. Patient reports she was reaching into a cupboard when she lost her balance and fell backwards onto her hip. Patient denies prodromal symptoms and denies post- fall symptoms beyond left hip pain. Patient denies head trauma or LOC.Patient denies fever, chills, headache, vision changes, CP, palpitations, SOB, edema, abdominal pain, nausea, vomiting, dysuria, hematochezia, melena, lightheadedness, dizziness, numbness, tingling, weakness, or other symptoms. Denies recent illness and recent travel. Patient does note she has not been eating much over the past few days/weeks. Upon arrival, vitals were notable for borderline-soft BP (97/60); no tachycardia, no tachypnea, patient afebrile, spO2 adequate on room air. Initial labs were notable for mild anemia (11.0), mild hyponatremia (130), and elevated alkphos (254). ; no leukocytosis, platelets wnl, no electrolyte abnormalities, creatinine not elevated, Tbili not elevated. In the ED, patient was given morphine 2mg IV and was started on LR @ 75mL/hr. EKG: NSR, no overt ischemic change CXR: no acute cardiopulmonary findings; right upper lobe mass and associated lymphadenopathy better depicted on prior chest CT XR hip/pelvis: acute displaced left femoral neck fracture Surrogate decision-maker in case of an emergency: daughter (Ludmila Elizabeth, cell: [phone]) Allergies Allergy/AdvReac Type Severity Reaction Status Date / Time No Known Allergies Allergy Verified 10/27/22 23:46 Home Medications Medication Instructions Recorded Confirmed Type omeprazole 20 mg capsule,delayed 20 mg PO QAM #90 caps 10/21/21 10/28/22 Rx release allopurinol 300 mg tablet 300 mg PO HS #30 tabs 08/27/22 10/27/22 Rx amiodarone 200 mg tablet 200 mg PO BID #60 tabs 08/27/22 10/27/22 Rx levalbuterol tartrate 45 2 puff inhalation Q6H PRN 08/28/22 10/28/22 Rx mcg/actuation aerosol inhaler cough/wheeze/shortness of breath (Xopenex HFA) #1 g sodium chloride 1 gram tablet 1,000 mg PO DAILY #30 tabs 08/28/22 10/28/22 Rx furosemide 20 mg tablet (Lasix) 10 mg PO DAILY 09/27/22 10/28/22 History lorazepam 0.5 mg tablet (Ativan) 0.5 mg PO TID PRN Anxiety 09/27/22 10/28/22 History buspirone 5 mg tablet 5 mg PO BID #7 tabs 10/09/22 10/27/22 Rx polyethylene glycol 3350 17 gram 17 g PO DAILY PRN constipation #15 10/09/22 10/28/22 Rx oral powder packet (Miralax) ea potassium chloride 10 mEq 10 meq PO BID #30 tabs 10/09/22 10/28/22 Rx tablet,extended release(part/cryst) calcium carbonate 200 mg calcium 1,000 mg PO Q6H PRN Gi Upset 10/27/22 10/27/22 History (500 mg) chewable tablet (Calcium Antacid) fentanyl 12 mcg/hr transdermal 1 patch topical Q72H 10/27/22 10/27/22 History patch fentanyl 25 mcg/hr transdermal 1 patch transdermal Q72H 10/27/22 10/27/22 History patch ondansetron 4 mg disintegrating 4 mg PO Q6H PRN Nausea 10/28/22 10/28/22 History tablet oxycodone 5 mg tablet 5 mg PO Q4H PRN Pain (Scale Score 10/28/22 10/28/22 History 7-10) Past Med/Surg History Medical History Alcohol intoxication Blood loss Cancer related pain History of cigarette smoking Hyperlipidemia Hypertension Hyponatremia Hypotension Liver lesion Metastatic cancer Widespread Stage IV Met Ca likely lung primary, bx needed, 08/19/22 Open tibial fracture Palliative care encounter Pathologic lumbar vertebral fracture Sensorineural hearing loss of both ears Small cell lung cancer SVT (supraventricular tachycardia) Type 2 diabetes mellitus Surgical History History of ankle surgery broken ankle-2014 at [facility] History of appendectomy History of hemicolectomy January 2016--[facility] History of tonsillectomy History of tubal ligation Port-A-Cath in place (08/24/22) Aport Placement(Left) - Edwin Roa DO, FACS Family History Sister Primary adenocarcinoma of vagina Father Asthma Hypertension Macular degeneration Pulmonary embolism Mother Emphysema lung Brother Macular degeneration Denies family history of Ovarian cancer Prostate cancer Myocardial infarction Breast cancer Colorectal cancer Social History Smoking Status: Former smoker Tobacco Type: Cigarettes packs per day: 2; Second Hand Exposure: No; Hx Alcohol Use: No Hx Substance Use: No Preferred Language: Setswana Communication Ability: Effective Visual Impairment: No Limitations Hearing Ability: Normal Barrel Repairer Required: No Beliefs That Will Affect Care: None marital status: Current Living Situation: Spouse current occupational status: retired How many Children do You have: 2 Feels Safe at Home: Yes Childhood Exposure to Second-Hand Smoke: Yes caffeine: Yes (coffee 4 cups a day ) Dental Care, Regularly: Yes Physical Activity Frequency: Daily Physical Activity Frequency Comment: bicycle Seatbelt Use: always Sunscreen Use: Yes Assistive Devices: Glasses, Hearing Aid - Bilateral and Walker Physical Exam Physical Exam: Constitutional: well-appearing, no acute distress HEENT: NCAT, no conjunctival injection CV: regular rhythm, no murmur appreciated, extremities well-perfused, no LE edema Resp: CTABL, no wheezes/rales/rhonchi appreciated, no increased work of breathing GI: soft, nondistended, nontender, BS normoactive MSK: see ED provider note Skin: no L hip bruising noted, no other skin abnormalities noted Neuro: alert, oriented, no focal neurologic deficit appreciated Results & Data Results & Data ([facility]) Vital Signs (Past 12 Hours) Vital Signs Temp Pulse Resp BP Pulse Ox O2 Del Method 10/27/22 19:38 36.3 C L 85 18 97/60 L 95 Room Air Supervising Physician Co-Signing Physician Notes Patient seen and examined, chart reviewed, case discussed with Dr. Mark and I agree with the assessment and plan as above. In brief, patient is a 77yo female with history of metastatic small cell carcinoma of the lung with involvement of liver, bone, brain and spine. She is s/p XRT and on chemotherapy. Patient presents s/p ground level fall resulting in acute displaced left femoral neck fracture. Pain is presently well controlled. Sensation intact. No additional complaints at this time. On exam she is afebrile, HD stable, nontoxic in appearance, comfortable Skin - intact, no rash HEENT - NC/AT, PERRL, MMM Heart - +S1/S2, regular Lungs - CTA, some coarse upper airway breath sounds cleared with coughing Abd - +BS, soft, NT/ND Ext - warm, well perfused Labs and images reviewed Assessment/Plan -acute displaced left femoral neck fracture following ground level fall. Pain well controlled. Patient NV intact -Continue Fentanyl, Ibuprofen, Morphine. Ortho consultation appreciated -Management of chronic medical conditions as above Resident Activity Tracking Resident Involvement: Resident Care Provided and Claims Examiner Coverage Note Care Provided: Adult Hospital Medicine
[2022-10-27] MEDS ORDERED: LEVALBUTEROL TARTRATE 15 GM HFA.AER.AD INH PRN (22:49)
[2022-10-27] MEDS ORDERED: NALOXONE HCL 0.4 MG/1 ML VIAL/CARP IV PRN (23:01)
[2022-10-27] MEDS ORDERED: IBUPROFEN 200 MG TAB PO PRN (23:01)
[2022-10-27] MEDS ORDERED: busPIRone 5 MG TAB PO STA (23:05)
[2022-10-27] MEDS ORDERED: AMIODARONE 200 MG TAB PO STA (23:05)
[2022-10-27] MEDS ORDERED: HYDROmorphone INJ 1 MG/ML SYRINGE IV STA (23:34)
[2022-10-28 00:10] LABS: Appearance Urine Turbid (Clear); Bacteria Urine Automated 4+ (Negative); Bilirubin Urine Negative (Negative); Blood Urine 3+ (Negative); Color Urine Yellow; Epithelial Cell Urine Auto >30 /lpf (0-5); Glucose Urine UA Negative (Negative); Ketones Urine Trace (Negative); Leukocyte Esterase Urine 3+ (Negative); Nitrite Urine Positive (Negative); Protein Urine 2+ (Negative); RBC Urine Automated >30 /hpf (0-4); Specific Gravity Urine 1.016 (1.000-1.030); Urobilinogen Urine Negative (Negative); WBC Urine Automated >30 /hpf (0-5)
[2022-10-28] MEDS ORDERED: DEXTROSE 50% 50 ML SYRINGE IV PRN (00:44)
[2022-10-28] MEDS ORDERED: CARBOHYDRATES FOR HYPOGLYCEMIA PO PRN (00:44)
[2022-10-28] MEDS ORDERED: GLUCOSE 40% GEL 15 GM TUBE PO PRN (00:44)
[2022-10-28] MEDS ORDERED: GLUCAGON FOR INJ 1 MG VIAL SQ PRN (00:44)
[2022-10-28] MEDS ORDERED: GLUCOSE 10 TAB/TUBE PO PRN (00:44)
--- NOTE | 2022-10-28 02:00 | Billing Data ---
Date of Service October 27, 2022 Coding Level of Care Code 94151 INT INP/OBS CARE
[2022-10-28] MEDS: MoRPHine SULFATE 2 MG/ML CARP IV PRN ×4 (02:14→21:50)
[2022-10-28] MEDS ORDERED: ONDANSETRON INJ 2 MG/ML 2 ML VIAL IV PRN (03:32)
[2022-10-28] MEDS ORDERED: SODIUM CHLORIDE 0.9% 1000ML 1,000 ML IV SCH (03:32)
[2022-10-28] MEDS: CHECK fentaNYL PATCH PLACEMENT SCH ×4 (03:48→20:56)
[2022-10-28] MEDS: INSULIN ASPART PER UNIT SC SCH ×4 (06:09→20:49)
[2022-10-28 07:37] LABS: Hematocrit (blood only) 27.3 % (34.1-44.9); Hemoglobin 9.4 g/dl (12.0-16.0); Mean Corpuscular Hemoglobin 30.2 pg (25.0-34.0); Mean Corpuscular Hgb Conc 34.4 g/dL (32.0-36.0); Mean Corpuscular Volume 87.8 fL (80.0-100.0); Mean Platelet Volume 9.5 fL (9.4-12.3); Platelet Count 264 K/uL (130-400); RDW Coefficient of Variation 19.9 % (11.5-14.5); Red Blood Count 3.11 M/uL (3.93-5.22); White Blood Count 9.47 K/ul (4.8-10.8)
[2022-10-28 07:45] LABS: INR 1.1 (0.9-1.1); Prothrombin Time 12.1 Seconds (9.0-12.0)
[2022-10-28] MEDS ORDERED: ENOXAPARIN INJ 40 MG/0.4 ML SYR SQ SCH (09:00)
--- NOTE | 2022-10-28 09:11 | Electrocardiogram Report ---
Test Reason : Blood Pressure : / mmHG Vent. Rate : 087 BPM Atrial Rate : 087 BPM P-R Int : 168 ms QRS Dur : 084 ms QT Int : 400 ms P-R-T Axes : -23 021 056 degrees QTc Int : 481 ms Poor data quality, interpretation may be adversely affected Normal sinus rhythm Low voltage QRS Borderline ECG When compared with ECG of 02-OCT-2022 05:16, Criteria for Septal infarct are no longer Present Confirmed by Enzo Watson ([id number]) on 10/28/2022 9:11:27 AM Referred By: REFERRED SELF Confirmed By:Enzo Watson
[2022-10-28] MEDS: busPIRone 5 MG TAB PO SCH ×2 (09:45→20:54)
[2022-10-28] MEDS: PANTOprazole 40 MG TAB PO SCH (09:46)
[2022-10-28] MEDS: AMIODARONE 200 MG TAB PO SCH ×2 (09:46→20:53)
[2022-10-28] MEDS: fentaNYL 25 MCG/HR TDSY TD SCH (09:47)
[2022-10-28 09:50] LABS: Albumin Level 2.5 gm/dl (3.4-5.0); Bilirubin,Total 0.6 mg/dl (0.2-1.0); Calcium 8.3 mg/dl (8.5-10.1); Creatinine Clr Calc Pharmacy 76.7 ml/min; Est GFR (African American) 102.8 ml/min; Est GFR (Non-African American) 88.7 ml/min; Globulin 2.4 gm/dl (2.5-4.0); Magnesium 1.8 mg/dl (1.7-2.4); Phosphorus 3.7 mg/dl (2.5-4.9); Potassium 4.4 mmol/L (3.5-5.1); Total Protein 4.9 gm/dl (6.0-8.3)
--- NOTE | 2022-10-28 10:05 | Orthopedic Consultation ---
Date of Consultation October 28, 2022 Assessment & Plan (1) Closed hip fracture: Patient was educated regarding today's findings. Conservative care measures were discussed. Necessity for surgical intervention was discussed at length, if she would like to remain ambulatory. Patient is in agreement. She states she is uncertain consents. Arrangements have been made to proceed this afternoon. We will determine whether this will be Dr. Rodriguez or Dr. Flores. Patient is currently NPO. She understands that rehab will be necessary afterward. Preop antibiotics have been ordered. Present on Admission?: Yes Supervising Physician Co-Signing Physician Notes I, Dr. Flores, saw and examined the patient and discussed the management with my PA. I reviewed my PAs note and agree with the documented findings and the plan of care I developed. Patient was seen and her oncologist was in the room at the same time. She is noted to have had radiation therapy due to mets in the hip. She describes having had pain in the hip several months ago. 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 After orthopedic consult discussing the patients treatment options of conservative versus surgical intervention, the patient agreed for a planned hemiarthroplasty. Since the patient was ambulatory prior to the injury and to avoid the risks of bed sores, pulmonary complications, and to give the patient the best chance for ambulation, I recommended surgery. The patient understands the risks of surgery, which include but are not limited to: Wound problems, bleeding, infection, re-operation, damage to nerves and arteries, continued pain, failure of the hardware, fracture, dislocation, DVT, LA, stroke, and . In addition the patient is aware of the 20-30% morbidity associated with hip fracture for up to 1 year following a hip fracture. The patient understands all of these instructions and explanations, all of their questions have been satisfactorily addressed. The patient has elected to proceed with surgery and the informed consent was signed. The patient has a Boucher in place. Unfortunately the patient was given Lovenox today. Hold Lovenox tonight, continue pain control. NPO with fluids after midnight. Continue care per the hospitalist service. The patient has been placed on the add-on list for tomorrow . Will plan to proceed with surgery tomorrow if she remains medically stable. History of Present Illness Reason for Consultation: Left hip fracture Requesting Physician: Stephanie Flores MD Attending Physician: Blanco Mccall History of Present Illness 77-year-old female is seen today in her room. Patient states she was at home ye sterday and was attempting to get something out of an upper cupboard. She was reaching high overhead and became momentarily dizzy. She fell backwards, landing on her left side. There is immediate onset of pain in her left hip. She was unable to bear weight. Patient was taken to the ED by EMS and found to have a left hip fracture. She denies striking her head. There was no loss of conscious. She denies any chest pain or shortness of breath. No prior history of falls. She has a known history of lung cancer with metastases. Patient states she had a "crack" in her hip back in June but did not see orthopedics. Review of her images show no evidence of fracture of her hip, although she does have compression fractures of L4 and L5 in her back at that time. No numbness or tingling. No other complaints at this point. She recently finished radiation therapy and is currently scheduled for chemotherapy today. Allergies Allergy/AdvReac Type Severity Reaction Status Date / Time No Known Allergies Allergy Verified 10/27/22 23:46 Home Medications Medication Instructions Recorded Confirmed Type omeprazole 20 mg capsule,delayed 20 mg PO QAM #90 caps 10/21/21 10/28/22 Rx release allopurinol 300 mg tablet 300 mg PO HS #30 tabs 08/27/22 10/27/22 Rx amiodarone 200 mg tablet 200 mg PO BID #60 tabs 08/27/22 10/27/22 Rx levalbuterol tartrate 45 2 puff inhalation Q6H PRN 08/28/22 10/28/22 Rx mcg/actuation aerosol inhaler cough/wheeze/shortness of breath (Xopenex HFA) #1 g sodium chloride 1 gram tablet 1,000 mg PO DAILY #30 tabs 08/28/22 10/28/22 Rx furosemide 20 mg tablet (Lasix) 10 mg PO DAILY 09/27/22 10/28/22 History lorazepam 0.5 mg tablet (Ativan) 0.5 mg PO TID PRN Anxiety 09/27/22 10/28/22 History buspirone 5 mg tablet 5 mg PO BID #7 tabs 10/09/22 10/27/22 Rx polyethylene glycol 3350 17 gram 17 g PO DAILY PRN constipation #15 10/09/22 10/28/22 Rx oral powder packet (Miralax) ea potassium chloride 10 mEq 10 meq PO BID #30 tabs 10/09/22 10/28/22 Rx tablet,extended release(part/cryst) calcium carbonate 200 mg calcium 1,000 mg PO Q6H PRN Gi Upset 10/27/22 10/27/22 History (500 mg) chewable tablet (Calcium Antacid) fentanyl 12 mcg/hr transdermal 1 patch topical Q72H 10/27/22 10/27/22 History patch fentanyl 25 mcg/hr transdermal 1 patch transdermal Q72H 10/27/22 10/27/22 History patch ondansetron 4 mg disintegrating 4 mg PO Q6H PRN Nausea 10/28/22 10/28/22 History tablet oxycodone 5 mg tablet 5 mg PO Q4H PRN Pain (Scale Score 10/28/22 10/28/22 History 7-10) Patient History Medical History Alcohol intoxication Blood loss Cancer related pain History of cigarette smoking Hyperlipidemia Hypertension Hyponatremia Hypotension Liver lesion Metastatic cancer Widespread Stage IV Met Ca likely lung primary, bx needed, 08/19/22 Open tibial fracture Palliative care encounter Pathologic lumbar vertebral fracture Sensorineural hearing loss of both ears Small cell lung cancer SVT (supraventricular tachycardia) Type 2 diabetes mellitus Surgical History History of ankle surgery broken ankle-2014 at [facility] History of appendectomy History of hemicolectomy January 2016--[facility] History of tonsillectomy History of tubal ligation Port-A-Cath in place (08/24/22) Aport Placement(Left) - Edwin Roa DO, FACS Family History Sister Primary adenocarcinoma of vagina Father Asthma Hypertension Macular degeneration Pulmonary embolism Mother Emphysema lung Brother Macular degeneration Denies family history of Ovarian cancer Prostate cancer Myocardial infarction Breast cancer Colorectal cancer Social History Smoking Status: Former smoker Tobacco Type: Cigarettes packs per day: 2; Second Hand Exposure: No; Hx Alcohol Use: No Hx Substance Use: No Preferred Language: Azerbaijani Communication Ability: Effective Visual Impairment: No Limitations Hearing Ability: Normal Customer Equipment Engineer Required: No Beliefs That Will Affect Care: None marital status: Current Living Situation: Spouse current occupational status: retired How many Children do You have: 2 Feels Safe at Home: Yes Childhood Exposure to Second-Hand Smoke: Yes caffeine: Yes (coffee 4 cups a day ) Dental Care, Regularly: Yes Physical Activity Frequency: Daily Physical Activity Frequency Comment: bicycle Seatbelt Use: always Sunscreen Use: Yes Assistive Devices: Cane, Walker and Wheelchair Review of Systems Review of Systems: All systems reviewed & are unremarkable except as noted in HPI & below A total of 10 systems were reviewed. Physical Exam Physical Exam: General: Well-developed, well-nourished, elderly female, in no acute distress. Laying in bed. Alert and oriented. Conversive. Skin: Warm and dry with fair turgor. No rashes. Significant calluses present on her feet. No ecchymosis or edema. Musculoskeletal: Patient has no discomfort with palpation over her of her right lower extremity. She is uncomfortable with palpation of the left greater trochanter and into the groin. No pain with palpation over the rest of the leg. Her left leg is noted to be approximately inch and a half short compared to the right. There is an externally rotated position. No motion of the hip was attempted. Patient does have intact motor function of the toes, ankle, and knee. She has supple motion of the right leg at the hip, knee, and ankle, all without discomfort. Neurologic: Gross sensation is intact across both lower extremities by soft touch. Peripheral pulses are 2+. Results & Data ([facility]) Vital Signs (Past 12 Hours) Vital Signs Temp Pulse Pulse Resp BP BP Pulse Ox 10/28/22 08:15 36.4 C L 74 16 108/63 99 10/28/22 03:40 10/28/22 03:32 36.4 C L 80 16 123/73 98 10/28/22 03:11 10/28/22 02:20 81 18 10/28/22 02:10 84 18 10/28/22 02:00 85 14 10/28/22 02:00 129/75 10/28/22 01:50 80 16 10/28/22 01:40 87 22 10/28/22 01:30 81 13 99 10/28/22 01:30 115/67 10/28/22 01:20 81 18 98 10/28/22 01:10 83 14 99 10/28/22 01:00 83 11 L 97 10/28/22 01:00 129/75 10/28/22 00:50 88 22 82 L 10/28/22 00:40 83 17 99 10/28/22 00:31 87 19 98 10/28/22 00:31 96/71 L 10/28/22 00:30 87 15 97 10/28/22 00:20 86 21 98 10/28/22 00:10 85 16 93 10/28/22 00:00 83 20 95 10/28/22 00:00 109/73 10/27/22 23:50 83 18 94 10/27/22 23:40 80 22 98 10/27/22 23:30 81 14 96 10/27/22 23:30 127/71 10/27/22 23:20 83 23 99 10/27/22 23:10 82 18 97 10/27/22 23:00 81 18 98 10/27/22 23:00 127/73 10/27/22 22:50 86 17 98 10/27/22 22:40 89 18 98 10/27/22 22:30 85 19 10/27/22 22:30 123/72 10/27/22 22:20 84 12 10/27/22 22:10 87 31 H O2 Del Method O2 Flow Rate 10/28/22 08:15 Nasal Cannula 2 10/28/22 03:40 Nasal Cannula 2 10/28/22 03:32 Nasal Cannula 2 10/28/22 03:11 Nasal Cannula 2 10/28/22 02:20 10/28/22 02:10 10/28/22 02:00 10/28/22 02:00 10/28/22 01:50 10/28/22 01:40 10/28/22 01:30 10/28/22 01:30 10/28/22 01:20 10/28/22 01:10 10/28/22 01:00 10/28/22 01:00 10/28/22 00:50 10/28/22 00:40 10/28/22 00:31 10/28/22 00:31 10/28/22 00:30 10/28/22 00:20 10/28/22 00:10 10/28/22 00:00 10/28/22 00:00 10/27/22 23:50 10/27/22 23:40 10/27/22 23:30 10/27/22 23:30 10/27/22 23:20 10/27/22 23:10 2 10/27/22 23:00 2 10/27/22 23:00 10/27/22 22:50 10/27/22 22:40 10/27/22 22:30 10/27/22 22:30 10/27/22 22:20 10/27/22 22:10 Laboratory Results 10/28/22 10/28/22 10/28/22 Range/Units 16:57 11:54 07:10 WBC (4.8-10.8) K/ul RBC (3.93-5.22) M/uL Hgb (12.0-16.0) g/dl Hct (34.1-44.9) % MCV (80.0-100.0) fL MCH (25.0-34.0) pg MCHC (32.0-36.0) g/dL RDW Std Deviation (36.4-46.3) fL RDW Coeff of Charlie (11.5-14.5) % Plt Count (130-400) K/uL MPV (9.4-12.3) fL Immature Gran % (Auto) % Neut % (Auto) % Lymph % (Auto) % [place] % (Auto) % Eos % (Auto) % Baso % (Auto) % Neut # (Auto) (1.4-6.5) K/uL Lymph # (Auto) (1.2-3.4) K/uL [place] # (Auto) (0.24-0.82) K/uL Eos # (Auto) (0-0.50) K/uL Baso # (Auto) (0-0.2) K/uL Immature Gran # (Auto) (0.00-0.02) K/uL Polychromasia Anisocytosis Echinocytes Acanthocytes (Spur) PT 12.1 H (9.0-12.0) Seconds INR 1.1 (0.9-1.1) APTT (21.0-31.0) Seconds PTT Ratio Sodium (136-145) mmol/L Potassium (3.5-5.1) mmol/L Chloride (98-107) mmol/L Carbon Dioxide (21-32) mmol/L Anion Gap (3-11) BUN (6-23) mg/dl Creatinine (0.6-1.2) mg/dl Est Cr Clr Drug Dosing ml/min Est GFR ( Amer) ml/min Est GFR (Non-Af Amer) ml/min BUN/Creatinine Ratio (10-20) Glucose (70-99(Fasting)) mg/dl POC Glucose 116 H 91 (70-99) mg/dl Calcium (8.5-10.1) mg/dl Phosphorus (2.5-4.9) mg/dl Magnesium (1.7-2.4) mg/dl Total Bilirubin (0.2-1.0) mg/dl AST (13-39) U/L ALT (7-52) U/L Alkaline Phosphatase (34-104) U/L Total Protein (6.0-8.3) gm/dl Albumin (3.4-5.0) gm/dl Globulin (2.5-4.0) gm/dl Albumin/Globulin Ratio (0.9-2) Urine Color Urine Appearance (Clear) Urine pH (4.5-7.5) Ur Specific [place] (1.000-1.030) Urine Protein (Negative) Urine Glucose (UA) (Negative) Urine Ketones (Negative) Urine Blood (Negative) Urine Nitrite (Negative) Urine Bilirubin (Negative) Urine Urobilinogen (Negative) Ur Leukocyte Esterase (Negative) Urine WBC (Auto) (0-5) /hpf Urine RBC (Auto) (0-4) /hpf U Hyaline Cast (Auto) (0-5) /lpf U Epithel Cells (Auto) (0-5) /lpf Urine Bacteria (Auto) (Negative) SARS-CoV-2, RNA, NAAT (NEGATIVE) 10/28/22 10/28/22 10/28/22 Range/Units 07:10 07:10 05:59 WBC 9.47 (4.8-10.8) K/ul RBC 3.11 L (3.93-5.22) M/uL Hgb 9.4 L (12.0-16.0) g/dl Hct 27.3 L (34.1-44.9) % MCV 87.8 (80.0-100.0) fL MCH 30.2 (25.0-34.0) pg MCHC 34.4 (32.0-36.0) g/dL RDW Std Deviation 63.0 H (36.4-46.3) fL RDW Coeff of Charlei 19.9 H (11.5-14.5) % Plt Count 264 (130-400) K/uL MPV 9.5 (9.4-12.3) fL Immature Gran % (Auto) % Neut % (Auto) % Lymph % (Auto) % [place] % (Auto) % Eos % (Auto) % Baso % (Auto) % Neut # (Auto) (1.4-6.5) K/uL Lymph # (Auto) (1.2-3.4) K/uL [place] # (Auto) (0.24-0.82) K/uL Eos # (Auto) (0-0.50) K/uL Baso # (Auto) (0-0.2) K/uL Immature Gran # (Auto) (0.00-0.02) K/uL Polychromasia Anisocytosis Echinocytes Acanthocytes (Spur) PT (9.0-12.0) Seconds INR (0.9-1.1) APTT (21.0-31.0) Seconds PTT Ratio Sodium 130 L (136-145) mmol/L Potassium 4.4 (3.5-5.1) mmol/L Chloride 98 (98-107) mmol/L Carbon Dioxide 27 (21-32) mmol/L Anion Gap 5 (3-11) BUN 14 (6-23) mg/dl Creatinine 0.56 L (0.6-1.2) mg/dl Est Cr Clr Drug Dosing 76.7 ml/min Est GFR ( Amer) 102.8 ml/min Est GFR (Non-Af Amer) 88.7 ml/min BUN/Creatinine Ratio 25.0 H (10-20) Glucose 98 (70-99(Fasting)) mg/dl POC Glucose 109 H (70-99) mg/dl Calcium 8.3 L (8.5-10.1) mg/dl Phosphorus 3.7 (2.5-4.9) mg/dl Magnesium 1.8 (1.7-2.4) mg/dl Total Bilirubin 0.6 (0.2-1.0) mg/dl AST 19 (13-39) U/L ALT 15 (7-52) U/L Alkaline Phosphatase 213 H (34-104) U/L Total Protein 4.9 L (6.0-8.3) gm/dl Albumin 2.5 L (3.4-5.0) gm/dl Globulin 2.4 L (2.5-4.0) gm/dl Albumin/Globulin Ratio 1.0 (0.9-2) Urine Color Urine Appearance (Clear) Urine pH (4.5-7.5) Ur Specific [place] (1.000-1.030) Urine Protein (Negative) Urine Glucose (UA) (Negative) Urine Ketones (Negative) Urine Blood (Negative) Urine Nitrite (Negative) Urine Bilirubin (Negative) Urine Urobilinogen (Negative) Ur Leukocyte Esterase (Negative) Urine WBC (Auto) (0-5) /hpf Urine RBC (Auto) (0-4) /hpf U Hyaline Cast (Auto) (0-5) /lpf U Epithel Cells (Auto) (0-5) /lpf Urine Bacteria (Auto) (Negative) SARS-CoV-2, RNA, NAAT (NEGATIVE) 10/27/22 10/27/22 10/27/22 Range/Units 23:20 22:03 20:09 WBC (4.8-10.8) K/ul RBC (3.93-5.22) M/uL Hgb (12.0-16.0) g/dl Hct (34.1-44.9) % MCV (80.0-100.0) fL MCH (25.0-34.0) pg MCHC (32.0-36.0) g/dL RDW Std Deviation (36.4-46.3) fL RDW Coeff of Charlie (11.5-14.5) % Plt Count (130-400) K/uL MPV (9.4-12.3) fL Immature Gran % (Auto) % Neut % (Auto) % Lymph % (Auto) % [place] % (Auto) % Eos % (Auto) % Baso % (Auto) % Neut # (Auto) (1.4-6.5) K/uL Lymph # (Auto) (1.2-3.4) K/uL [place] # (Auto) (0.24-0.82) K/uL Eos # (Auto) (0-0.50) K/uL Baso # (Auto) (0-0.2) K/uL Immature Gran # (Auto) (0.00-0.02) K/uL Polychromasia Anisocytosis Echinocytes Acanthocytes (Spur) PT (9.0-12.0) Seconds INR (0.9-1.1) APTT (21.0-31.0) Seconds PTT Ratio Sodium 130 L (136-145) mmol/L Potassium 4.5 (3.5-5.1) mmol/L Chloride 95 L (98-107) mmol/L Carbon Dioxide 24 (21-32) mmol/L Anion Gap 11 (3-11) BUN 16 (6-23) mg/dl Creatinine 0.78 (0.6-1.2) mg/dl Est Cr Clr Drug Dosing 56.6 ml/min Est GFR ( Amer) 83.8 ml/min Est GFR (Non-Af Amer) 72.3 ml/min BUN/Creatinine Ratio 20.5 H (10-20) Glucose 161 H (70-99(Fasting)) mg/dl POC Glucose (70-99) mg/dl Calcium 8.7 (8.5-10.1) mg/dl Phosphorus (2.5-4.9) mg/dl Magnesium (1.7-2.4) mg/dl Total Bilirubin 0.9 (0.2-1.0) mg/dl AST 23 (13-39) U/L ALT 19 (7-52) U/L Alkaline Phosphatase 254 H (34-104) U/L Total Protein 5.8 L (6.0-8.3) gm/dl Albumin 2.9 L (3.4-5.0) gm/dl Globulin 2.9 (2.5-4.0) gm/dl Albumin/Globulin Ratio 1.0 (0.9-2) Urine Color Yellow Urine Appearance Turbid A (Clear) Urine pH 6.0 (4.5-7.5) Ur Specific [place] 1.016 (1.000-1.030) Urine Protein 2+ H (Negative) Urine Glucose (UA) Negative (Negative) Urine Ketones Trace H (Negative) Urine Blood 3+ H (Negative) Urine Nitrite Positive A (Negative) Urine Bilirubin Negative (Negative) Urine Urobilinogen Negative (Negative) Ur Leukocyte Esterase 3+ H (Negative) Urine WBC (Auto) >30 H (0-5) /hpf Urine RBC (Auto) >30 H (0-4) /hpf U Hyaline Cast (Auto) 1-5 (0-5) /lpf U Epithel Cells (Auto) >30 H (0-5) /lpf Urine Bacteria (Auto) 4+ H (Negative) SARS-CoV-2, RNA, NAAT NEGATIVE (NEGATIVE) 10/27/22 10/27/22 Range/Units 20:09 20:09 WBC 8.28 (4.8-10.8) K/ul RBC 3.58 L (3.93-5.22) M/uL Hgb 11.0 L (12.0-16.0) g/dl Hct 32.1 L (34.1-44.9) % MCV 89.7 (80.0-100.0) fL MCH 30.7 (25.0-34.0) pg MCHC 34.3 (32.0-36.0) g/dL RDW Std Deviation 65.1 H (36.4-46.3) fL RDW Coeff of Charlie 20.1 H (11.5-14.5) % Plt Count 294 (130-400) K/uL MPV 9.4 (9.4-12.3) fL Immature Gran % (Auto) 3.6 % Neut % (Auto) 91.1 % Lymph % (Auto) 2.9 % [place] % (Auto) 1.9 % Eos % (Auto) 0.1 % Baso % (Auto) 0.4 % Neut # (Auto) 7.54 H (1.4-6.5) K/uL Lymph # (Auto) 0.24 L (1.2-3.4) K/uL [place] # (Auto) 0.16 L (0.24-0.82) K/uL Eos # (Auto) 0.01 (0-0.50) K/uL Baso # (Auto) 0.03 (0-0.2) K/uL Immature Gran # (Auto) 0.30 H (0.00-0.02) K/uL Polychromasia 1+ Anisocytosis Present Echinocytes 1+ Acanthocytes (Spur) 1+ PT 12.2 H (9.0-12.0) Seconds INR 1.2 H (0.9-1.1) APTT 27.3 (21.0-31.0) Seconds PTT Ratio 1.0 Sodium (136-145) mmol/L Potassium (3.5-5.1) mmol/L Chloride (98-107) mmol/L Carbon Dioxide (21-32) mmol/L Anion Gap (3-11) BUN (6-23) mg/dl Creatinine (0.6-1.2) mg/dl Est Cr Clr Drug Dosing ml/min Est GFR ( Amer) ml/min Est GFR (Non-Af Amer) ml/min BUN/Creatinine Ratio (10-20) Glucose (70-99(Fasting)) mg/dl POC Glucose (70-99) mg/dl Calcium (8.5-10.1) mg/dl Phosphorus (2.5-4.9) mg/dl Magnesium (1.7-2.4) mg/dl Total Bilirubin (0.2-1.0) mg/dl AST (13-39) U/L ALT (7-52) U/L Alkaline Phosphatase (34-104) U/L Total Protein (6.0-8.3) gm/dl Albumin (3.4-5.0) gm/dl Globulin (2.5-4.0) gm/dl Albumin/Globulin Ratio (0.9-2) Urine Color Urine Appearance (Clear) Urine pH (4.5-7.5) Ur Specific [place] (1.000-1.030) Urine Protein (Negative) Urine Glucose (UA) (Negative) Urine Ketones (Negative) Urine Blood (Negative) Urine Nitrite (Negative) Urine Bilirubin (Negative) Urine Urobilinogen (Negative) Ur Leukocyte Esterase (Negative) Urine WBC (Auto) (0-5) /hpf Urine RBC (Auto) (0-4) /hpf U Hyaline Cast (Auto) (0-5) /lpf U Epithel Cells (Auto) (0-5) /lpf Urine Bacteria (Auto) (Negative) SARS-CoV-2, RNA, NAAT (NEGATIVE) Diagnostic Findings Radiographic imaging obtained yesterday of the pelvis and left hip shows an acute displaced left femoral neck fracture. No pelvic fracture is noted.
[2022-10-28] MEDS ORDERED: Nursing to Pharmacy Communication SCH (13:00)
[2022-10-28] MEDS: HEPARIN 100 UNIT/ML 5ML FLUSH FLUSH PRN (17:28)
--- NOTE | 2022-10-28 20:18 | Hospitalist Progress Note ---
Date of Service October 28, 2022 Assessment & Plan (1) Closed hip fracture: Plan: 77yo female with a history of lung cancer (s/p recent radiation treatments), HTN, HLD, T2DM, gout, and MARI presents with left hip pain after a fall at home. Acute left hip fracture Patient presents with acute left hip pain after a mechanical fall at home Pain control: Patient's home fentanyl patch scheduled Ibuprofen prn mild pain Morphine prn mod/severe pain Ortho consulted NPO midnight pending orthopedic procedure on 10/29 PT/OT ordered Hyponatremia Suspect secondary to poor PO intake; currently euvolemic but likely secondary to IVF started in ED Trend BMP DM2 HbA1c 6.9% (09/2022) Patient's home regimen held on admission Continue BSG checks, sliding-scale insulin, hypoglycemic protocol HTN: BP currently well-controlled, patient not on BP meds at home - continue to monitor History of SVT: continue home amiodarone MARI: home buspar Gout: home allopurinol FEN: NPO at midnight pending possible orthopedic procedure, LR@75mL/hr Code status: DNI (chest compressions OK, defibrillation OK) DVT ppx: lovenox Consults: orthopedic surgery PT/OT: consulted Dispo: med/surg (2) Hyperlipidemia: (3) Hypertension: (4) Small cell lung cancer: (5) Type 2 diabetes mellitus: (6) Anxiety: Admission and Anticipated Discharge Date Admission Date: October 27, 2022 Subjective Patient reports no new symptoms. Review of Systems Review of Systems: All systems reviewed & are unremarkable except as noted in HPI & below Physical Exam Physical Exam: Constitutional: well-appearing, no acute distress HEENT: NCAT, no conjunctival injection CV: regular rhythm, no murmur appreciated, extremities well-perfused, no LE edema Resp: CTABL, no wheezes/rales/rhonchi appreciated, no increased work of breathing GI: soft, nondistended, nontender, BS normoactive MSK: see ED provider note Skin: no L hip bruising noted, no other skin abnormalities noted Neuro: alert, oriented, no focal neurologic deficit appreciated Results & Data Results & Data ([facility]) Vital Signs (Past 12 Hours) Vital Signs Temp Pulse Resp BP Pulse Ox O2 Del Method 10/28/22 15:46 36.4 C L 79 16 109/63 92 Room Air 10/28/22 12:04 94 Room Air PG Care Time/CCT Total # of Minutes Spent Total Time Spent with Patient: Total time spent is greater than 50% in coordination of care (as documented) at patient's floor/unit and/or counseling patient: Coding Level of Care Code 78326 SUB INP/OBS CARE 2/35MIN Diagnoses Closed hip fracture S72.009A Hyperlipidemia E78.5 Hypertension I10 Small cell lung cancer C34.90 Type 2 diabetes mellitus E11.9 Anxiety F41.9
[2022-10-28] MEDS: allopurinoL 300 MG TAB PO SCH (20:54)
[2022-10-29] MEDS ORDERED: Nursing to Pharmacy Communication SCH (01:15)
[2022-10-29] MEDS: MoRPHine SULFATE 2 MG/ML CARP IV PRN ×3 (02:07→17:56)
[2022-10-29] MEDS: LORazepam 0.5 MG TAB PO PRN ×2 (04:50→22:00)
[2022-10-29] MEDS ORDERED: ceFAZolin 2000MG 2,000 MG/15 ML SYR IV ONE (06:00)
[2022-10-29] MEDS ORDERED: TRANEXAMIC ACID / 0.7% NACL 1,000 MG/100 ML BAG IV SCH (06:00)
[2022-10-29] MEDS ORDERED: ceFAZolin 2000MG 2,000 MG/15 ML SYR IV SCH (06:00)
[2022-10-29] MEDS ORDERED: TRANEXAMIC ACID / 0.7% NACL 1,000 MG/100 ML BAG IV ONE (06:00)
[2022-10-29] MEDS: INSULIN ASPART PER UNIT SC SCH ×4 (06:17→21:30)
[2022-10-29] MEDS ORDERED: BUPIVACAINE 0.5 % 5 MG/1 ML PF 10ML VIAL ONE (07:12)
[2022-10-29] MEDS: CHECK fentaNYL PATCH PLACEMENT SCH ×2 (08:06→18:00)
[2022-10-29] MEDS: AMIODARONE 200 MG TAB PO SCH ×2 (08:18→21:13)
[2022-10-29] MEDS: busPIRone 5 MG TAB PO SCH ×2 (08:18→21:12)
[2022-10-29] MEDS: PANTOprazole 40 MG TAB PO SCH (08:18)
[2022-10-29 09:26] LABS: Hematocrit (blood only) 27.6 % (34.1-44.9); Hemoglobin 9.2 g/dl (12.0-16.0); Mean Corpuscular Hgb Conc 33.3 g/dL (32.0-36.0); Mean Corpuscular Volume 89.9 fL (80.0-100.0); Mean Platelet Volume 9.5 fL (9.4-12.3); Platelet Count 245 K/uL (130-400); RDW Coefficient of Variation 20.2 % (11.5-14.5); RDW Standard Deviation 66.1 fL (36.4-46.3); Red Blood Count 3.07 M/uL (3.93-5.22); White Blood Count 6.72 K/ul (4.8-10.8)
[2022-10-29] MEDS: HEPARIN 100 UNIT/ML 5ML FLUSH FLUSH PRN (10:12)
[2022-10-29 10:15] LABS: BUN Creatinine Ratio 29.2 (10-20); Calcium 7.9 mg/dl (8.5-10.1); Creatinine Clr Calc Pharmacy 89.4 ml/min; Est GFR (African American) 108.1 ml/min; Est GFR (Non-African American) 93.3 ml/min; Potassium 3.7 mmol/L (3.5-5.1)
--- NOTE | 2022-10-29 11:51 | Orthopedic Progress Note ---
Date of Service October 29, 2022 Assessment & Plan (1) Left displaced femoral neck fracture: Plan: Plan is to proceed with surgical intervention this afternoon with a cemented left hip hemiarthroplasty. Patient states that she is ready. Informed consent has already been obtained. Anesthesia will see patient prior to being transferred to a preoperative waiting area. Admission and Anticipated Discharge Date Admission Date: October 27, 2022 Subjective This 77-year-old female seen in preparation for a left hip cemented hemiarthroplasty. Patient states that she is ready to proceed with surgery this afternoon. She has been n.p.o. since yesterday afternoon. She states that her pain is very minimal at present as long as she is not moving. She localizes most the pain in the anterior aspect of her left groin. Currently she denies chest pain, shortness of breath, fever, chills, sweats or numbness or tingling in her left lower extremity. Review of Systems Review of Systems: All systems reviewed & are unremarkable except as noted in Subjective Physical Exam Physical Exam: Left hip: Patient has tenderness to palpation over her left groin. Her leg is visibly externally rotated but not shortened. She is able to actively dorsi and plantarflex her foot without issue. She is unable to perform an active straight leg raise test. She is able to detect light sensation to touch of the pads of all digits. She is neurovascular intact in left lower extremity. Results & Data ([facility]) Vital Signs (Past 12 Hours) Vital Signs Temp Pulse Resp BP Pulse Ox O2 Del Method 10/29/22 07:42 36.5 C 71 18 103/64 97 Room Air Diagnostic Findings Laboratory Results WBC 6.72 K/ul (4.8-10.8) 10/29/22 09:02 RBC 3.07 M/uL (3.93-5.22) L 10/29/22 09:02 Hgb 9.2 g/dl (12.0-16.0) L 10/29/22 09:02 Hct 27.6 % (34.1-44.9) L 10/29/22 09:02 MCV 89.9 fL (80.0-100.0) 10/29/22 09:02 MCH 30.0 pg (25.0-34.0) 10/29/22 09:02 MCHC 33.3 g/dL (32.0-36.0) 10/29/22 09:02 RDW Std Deviation 66.1 fL (36.4-46.3) H 10/29/22 09:02 RDW Coeff of Charlie 20.2 % (11.5-14.5) H 10/29/22 09:02 Plt Count 245 K/uL (130-400) 10/29/22 09:02 MPV 9.5 fL (9.4-12.3) 10/29/22 09:02 Immature Gran % (Auto) 3.6 % 10/27/22 20:09 Neut % (Auto) 91.1 % 10/27/22 20:09 Lymph % (Auto) 2.9 % 10/27/22 20:09 [place] % (Auto) 1.9 % 10/27/22 20:09 Eos % (Auto) 0.1 % 10/27/22 20:09 Baso % (Auto) 0.4 % 10/27/22 20:09 Neut # (Auto) 7.54 K/uL (1.4-6.5) H 10/27/22 20:09 Lymph # (Auto) 0.24 K/uL (1.2-3.4) L 10/27/22 20:09 [place] # (Auto) 0.16 K/uL (0.24-0.82) L 10/27/22 20:09 Eos # (Auto) 0.01 K/uL (0-0.50) 10/27/22 20:09 Baso # (Auto) 0.03 K/uL (0-0.2) 10/27/22 20:09 Immature Gran # (Auto) 0.30 K/uL (0.00-0.02) H 10/27/22 20:09 Polychromasia 1+ 10/27/22 20:09 Anisocytosis Present 10/27/22 20:09 Echinocytes 1+ 10/27/22 20:09 Acanthocytes (Spur) 1+ 10/27/22 20:09 PT 12.1 Seconds (9.0-12.0) H 10/28/22 07:10 INR 1.1 (0.9-1.1) 10/28/22 07:10 APTT 27.3 Seconds (21.0-31.0) 10/27/22 20:09 PTT Ratio 1.0 10/27/22 20:09 Sodium 130 mmol/L (136-145) L 10/29/22 09:02 Potassium 3.7 mmol/L (3.5-5.1) 10/29/22 09:02 Chloride 97 mmol/L (98-107) L 10/29/22 09:02 Carbon Dioxide 26 mmol/L (21-32) 10/29/22 09:02 Anion Gap 7 (3-11) 10/29/22 09:02 BUN 14 mg/dl (6-23) 10/29/22 09:02 Creatinine 0.48 mg/dl (0.6-1.2) L 10/29/22 09:02 Est Cr Clr Drug Dosing 89.4 ml/min 10/29/22 09:02 Est GFR ( Amer) 108.1 ml/min 10/29/22 09:02 Est GFR (Non-Af Amer) 93.3 ml/min 10/29/22 09:02 BUN/Creatinine Ratio 29.2 (10-20) H 10/29/22 09:02 Glucose 68 mg/dl (70-99(Fasting)) L 10/29/22 09:02 POC Glucose 120 mg/dl (70-99) H 10/29/22 06:12 Calcium 7.9 mg/dl (8.5-10.1) L 10/29/22 09:02 Phosphorus 3.7 mg/dl (2.5-4.9) 10/28/22 07:10 Magnesium 1.8 mg/dl (1.7-2.4) 10/28/22 07:10 Total Bilirubin 0.6 mg/dl (0.2-1.0) 10/28/22 07:10 AST 19 U/L (13-39) 10/28/22 07:10 ALT 15 U/L (7-52) 10/28/22 07:10 Alkaline Phosphatase 213 U/L (34-104) H 10/28/22 07:10 Total Protein 4.9 gm/dl (6.0-8.3) L 10/28/22 07:10 Albumin 2.5 gm/dl (3.4-5.0) L 10/28/22 07:10 Globulin 2.4 gm/dl (2.5-4.0) L 10/28/22 07:10 Albumin/Globulin Ratio 1.0 (0.9-2) 10/28/22 07:10 Urine Color Yellow 10/27/22 23:20 Urine Appearance Turbid (Clear) A 10/27/22 23:20 Urine pH 6.0 (4.5-7.5) 10/27/22 23:20 Ur Specific Ramah 1.016 (1.000-1.030) 10/27/22 23:20 Urine Protein 2+ (Negative) H 10/27/22 23:20 Urine Glucose (UA) Negative (Negative) 10/27/22 23:20 Urine Ketones Trace (Negative) H 10/27/22 23:20 Urine Blood 3+ (Negative) H 10/27/22 23:20 Urine Nitrite Positive (Negative) A 10/27/22 23:20 Urine Bilirubin Negative (Negative) 10/27/22 23:20 Urine Urobilinogen Negative (Negative) 10/27/22 23:20 Ur Leukocyte Esterase 3+ (Negative) H 10/27/22 23:20 Urine WBC (Auto) >30 /hpf (0-5) H 10/27/22 23:20 Urine RBC (Auto) >30 /hpf (0-4) H 10/27/22 23:20 U Hyaline Cast (Auto) 1-5 /lpf (0-5) 10/27/22 23:20 U Epithel Cells (Auto) >30 /lpf (0-5) H 10/27/22 23:20 Urine Bacteria (Auto) 4+ (Negative) H 10/27/22 23:20 SARS-CoV-2, RNA, NAAT NEGATIVE (NEGATIVE) 10/27/22 22:03 Blood Type O Positive 10/29/22 09:02 Antibody Screen NEGATIVE 10/29/22 09:02 Impressions Chest X-Ray 10/27/22 20:02 SUPINE PORTABLE AP CHEST RADIOGRAPH CLINICAL HISTORY: Hip fracture. Lung cancer. COMPARISON STUDY: Chest radiograph September 30, [address] October 08, 2022. FINDINGS: Left internal jugular [id number] is in place. There is no pneumothorax or pleural effusion. Cardiomegaly is unchanged. No pneumothorax identified on supine exam. Underlying emphysema. Mild interstitial thickening is likely chronic. Right upper lobe mass and associated mediastinal and right hilar lymphadenopathy is better depicted on prior chest CT. IMPRESSION: 1. No acute cardiopulmonary findings. No significant change in appearance of the chest. 2. Right upper lobe mass and associated lymphadenopathy, better depicted on prior chest CT. ACT 112: Negative or not required by law. Electronically signed by: Elan Dotson M.D. 10/27/2022 9:24 PM Hip/Pelvis X-Ray 10/27/22 20:02 XR hip LT 2V w pelvis CLINICAL HISTORY: fall, pain COMPARISON: CT of the abdomen and pelvis August 17, 2022. FINDINGS: There is an acute displaced left femoral neck fracture. No acute pelvic or proximal right femoral fractures are noted. Calcified fibroid is incidentally noted. IMPRESSION: Acute displaced left femoral neck fracture. ACT 112: Negative or not required by law. Electronically signed by: Elan Dotson M.D. 10/27/2022 9:01 PM
[2022-10-29] MEDS ORDERED: LIDOCAINE 1%/EPINEPHRINE 1:100,000 50 ML VIAL ONE (11:58)
[2022-10-29] MEDS ORDERED: BUPIVACAINE 0.5 % 5 MG/1 ML MPF 30ML VIAL ONE (11:58)
[2022-10-29] MEDS ORDERED: fentaNYL citrate 100 MCG/2 ML VIAL ONE (12:58)
[2022-10-29] MEDS ORDERED: MIDAZOLAM HCL 1 MG/ML 2ML VIAL ONE (12:58)
[2022-10-29] MEDS ORDERED: ROCURONIUM BROMIDE 10 MG/ML 5 ML VIAL IV ONE (12:59)
[2022-10-29] MEDS ORDERED: LIDOCAINE 2% MPF LOCAL 5 ML VIAL INFIL ONE (12:59)
[2022-10-29] MEDS ORDERED: PROPOFOL IV EMULSION 10 MG/ML 20 ML VIAL IV ONE (12:59)
[2022-10-29] MEDS ORDERED: SUGAMMADEX SODIUM 200 MG/2 ML VIAL IV ONE (13:33)
--- NOTE | 2022-10-29 13:38 | Anesthesiology Consultation ---
Date of Service October 29, 2022 Assessment & Plan Chart Review Chart Review: Acceptable Risk for Surgery and Patient NOT seen in Pre Admission Testing Consults Requested none ASA ASA4 Proposed Anesthesia Anesthesia Type: General Risk / Benefits Reviewed With: PT / POA / Parent / Guardian, Accepts Plan and Informed Consent Obtained History Surgery Operation Date: 10/29/22 13:30 Proposed Procedures p Left Hip Hemiarthroplasty - Toy Leonel Flores MD Height/Weight Height: 5 ft 2 in Weight: 73.9 kg Allergies Allergy/AdvReac Type Severity Reaction Status Date / Time No Known Allergies Allergy Verified 10/27/22 23:46 Medications Home Medications Medication Instructions Recorded Confirmed Last Taken omeprazole 20 mg capsule,delayed 20 mg PO QAM #90 caps 10/21/21 10/28/22 Unknown release allopurinol 300 mg tablet 300 mg PO HS #30 tabs 08/27/22 10/27/22 Unknown amiodarone 200 mg tablet 200 mg PO BID #60 tabs 08/27/22 10/27/22 Unknown levalbuterol tartrate 45 2 puff inhalation Q6H PRN 08/28/22 10/28/22 Unknown mcg/actuation aerosol inhaler cough/wheeze/shortness of breath (Xopenex HFA) #1 g sodium chloride 1 gram tablet 1,000 mg PO DAILY #30 tabs 08/28/22 10/28/22 Unknown furosemide 20 mg tablet (Lasix) 10 mg PO DAILY 09/27/22 10/28/22 Unknown lorazepam 0.5 mg tablet (Ativan) 0.5 mg PO TID PRN Anxiety 09/27/22 10/28/22 Unknown buspirone 5 mg tablet 5 mg PO BID #7 tabs 10/09/22 10/27/22 Unknown polyethylene glycol 3350 17 gram 17 g PO DAILY PRN constipation #15 10/09/22 10/28/22 Unknown oral powder packet (Miralax) ea potassium chloride 10 mEq 10 meq PO BID #30 tabs 10/09/22 10/28/22 Unknown tablet,extended release(part/cryst) calcium carbonate 200 mg calcium 1,000 mg PO Q6H PRN Gi Upset 10/27/22 10/27/22 Unknown (500 mg) chewable tablet (Calcium Antacid) fentanyl 12 mcg/hr transdermal 1 patch topical Q72H 10/27/22 10/27/22 Unknown patch fentanyl 25 mcg/hr transdermal 1 patch transdermal Q72H 10/27/22 10/27/22 Unknown patch ondansetron 4 mg disintegrating 4 mg PO Q6H PRN Nausea 10/28/22 10/28/22 Unknown tablet oxycodone 5 mg tablet 5 mg PO Q4H PRN Pain (Scale Score 10/28/22 10/28/22 Unknown 7-10) Active Medications Generic Name Dose Route Start Last Admin Trade Name Freq PRN Reason Stop Dose Admin Allopurinol 300 mg 10/28/22 21:00 10/28/22 20:54 Allopurinol 300 Mg Tab PO 11/27/22 20:59 300 mg HS ERNESTO Administration Amiodarone HCl 200 mg 10/28/22 09:00 10/29/22 08:18 Amiodarone 200 Mg Tab PO 11/27/22 08:59 200 mg BID ERNESTO Administration Buspirone HCl 5 mg 10/28/22 09:00 10/29/22 08:18 Buspirone 5 Mg Tab PO 11/27/22 08:59 5 mg BID ERNESTO Administration Dextrose 25 - 50 ml 10/28/22 00:44 10/29/22 12:19 Dextrose 50% 50 Ml Syringe IV 11/27/22 00:43 25 ml UD PRN Administration Hypoglycemia Protocol Protocol Fentanyl 25 mcg 10/28/22 09:00 10/28/22 09:47 Fentanyl 25 Mcg/Hr Tdsy TD 11/11/22 08:59 25 mcg Q3D@0900 ERNESTO Administration Heparin Sodium (Porcine) 5 ml 10/28/22 17:19 10/29/22 10:12 Heparin 100 Unit/Ml 5ml Flush FLUSH 11/27/22 17:18 5 ml PRN PRN Administration Flush Tranexamic Acid 1,000 mg in 100 mls @ 600 mls/hr 10/29/22 06:00 10/29/22 13:44 Tranexamic Acid / 0.7% Nacl IV 10/29/22 16:00 600 mls/hr PREOP ERNESTO Administration Insulin Aspart 0 units 10/29/22 06:00 10/29/22 12:25 Insulin Aspart Per Unit SC 11/28/22 05:59 Not Given Q6 ERNESTO Lorazepam 0.5 mg 10/29/22 04:27 10/29/22 04:50 Lorazepam 0.5 Mg Tab PO 11/28/22 04:26 0.5 mg TID PRN Administration Anxiety Miscellaneous 1 each 10/28/22 08:59 10/28/22 09:47 Fentanyl Patch Remove & Waste N/A 11/27/22 08:58 1 each Q3D@0859 ERNESTO Administration Miscellaneous 1 each 10/28/22 00:00 10/29/22 08:06 Check Fentanyl Patch Placement N/A 11/27/22 00:00 1 each QS ERNESTO Administration Morphine Sulfate 2 mg 10/27/22 20:01 10/29/22 08:24 Morphine Sulfate 2 Mg/Ml Carp IV 11/10/22 20:00 2 mg Q1H PRN Administration Moderate Pain (Rating 3,4,5,6) Pantoprazole Sodium 40 mg 10/28/22 09:00 10/29/22 08:18 Pantoprazole 40 Mg Tab PO 11/27/22 08:59 40 mg QAM ERNESTO Administration NPO Date Last Intake of Fluids: 10/29/22 Time Last Intake of Fluids: 08:30 Last Intake of Fluids Comment: sip with meds Date Last Intake of Solids: 10/28/22 Time Last Intake of Solids: 18:00 Past Medical History Medical History Alcohol intoxication Blood loss Cancer related pain History of cigarette smoking Hyperlipidemia Hypertension Hyponatremia Hypotension Liver lesion Metastatic cancer Widespread Stage IV Met Ca likely lung primary, bx needed, 08/19/22 Open tibial fracture Palliative care encounter Pathologic lumbar vertebral fracture Sensorineural hearing loss of both ears Small cell lung cancer SVT (supraventricular tachycardia) Type 2 diabetes mellitus Exercise / Class Metabolic Activity III < 4 Walking/Shop/Light housework Past Family History Family History Sister Primary adenocarcinoma of vagina Father Asthma Hypertension Macular degeneration Pulmonary embolism Mother Emphysema lung Brother Macular degeneration Denies family history of Ovarian cancer Prostate cancer Myocardial infarction Breast cancer Colorectal cancer Past Surgical History Surgical History History of ankle surgery broken ankle-2014 at [facility] History of appendectomy History of hemicolectomy January 2016--[facility] History of tonsillectomy History of tubal ligation Port-A-Cath in place (08/24/22) Aport Placement(Left) - Edwin Roa, DO, FACS Past Anesthesia History No Hx of Anesthesia Complications and No Family Hx of Anesthesia Complications History of PONV No Hx of PONV and No Hx of Motion Sickness Social History Smoking Status: Former smoker Do You Dip or Chew Tobacco: No Hx Alcohol Use: No Hx Substance Use: No Physical Exam Vital Signs Last Vital Signs Temp 36.5 C 10/29/22 12:51 Pulse 85 10/29/22 12:51 Resp 18 10/29/22 12:51 BP 116/63 10/29/22 12:51 Pulse Ox 95 10/29/22 12:51 O2 Del Method 10/29/22 12:51 O2 Flow Rate 2 10/28/22 08:15 Constitutional + obese; no acute distress ENMT Mouth: no dentition abnormality Thyromental Distance: < 3.5 Finger Breadths Mallampati Class: II Neck normal visual inspection and trachea midline; neck extension not limited Respiratory normal respiratory effort Auscultation: + diminished lung sounds Cardiovascular Rate/Rhythm: regular rate and regular rhythm Heart Sounds: no murmur Vessels: no carotid bruit Chest (Breasts) Chest: + vascular access device or port Musculoskeletal Spine: normal cervical ROM and no pain with cervical ROM Extremities: full ROM of extremities Neurologic moves all extremities Motor/Sensory: no sensory deficit Psychiatric Orientation: alert and oriented x 3 Testing Laboratory Results 10/29/22 09:02 10/29/22 09:02 PT 12.1 Seconds (9.0-12.0) H 10/28/22 07:10 INR 1.1 (0.9-1.1) 10/28/22 07:10 APTT 27.3 Seconds (21.0-31.0) 10/27/22 20:09 Urine Color Yellow 10/27/22 23:20 Urine Appearance Turbid (Clear) A 10/27/22 23:20 Urine pH 6.0 (4.5-7.5) 10/27/22 23:20 Ur Specific [place] 1.016 (1.000-1.030) 10/27/22 23:20 Urine Protein 2+ (Negative) H 10/27/22 23:20 Urine Glucose (UA) Negative (Negative) 10/27/22 23:20 Urine Ketones Trace (Negative) H 10/27/22 23:20 Urine Nitrite Positive (Negative) A 10/27/22 23:20 Ur Leukocyte Esterase 3+ (Negative) H 10/27/22 23:20 Urine WBC (Auto) >30 /hpf (0-5) H 10/27/22 23:20 Urine RBC (Auto) >30 /hpf (0-4) H 10/27/22 23:20 U Hyaline Cast (Auto) 1-5 /lpf (0-5) 10/27/22 23:20 U Epithel Cells (Auto) >30 /lpf (0-5) H 10/27/22 23:20 Urine Bacteria (Auto) 4+ (Negative) H 10/27/22 23:20 Blood Type O Positive 10/29/22 09:02 Antibody Screen NEGATIVE 10/29/22 09:02 10/27/22 23:20 Urine Culture - Preliminary Urine,Clean Catch Escherichia coli 10/29/22 10/29/22 10/29/22 12:54 12:36 12:10 POC Glucose 118 H 145 H 66 L* 10/29/22 10/29/22 12:09 06:12 POC Glucose 67 L* 120 H Electrocardiogram Date: 10/27/22 Findings: + NSR @ (@ 87;low voltage) Chest X-Ray Date: 10/27/22 Findings: + cardiomegaly and + mass (RUL mass w/ right hilar lymphadenopathy) Left IJ port in place Echocardiogram Date: 09/23/22 EF: >70% hyperdynamic LV Function: normal RWMA: + none Other Findings: + LVH (mild) Valvular Disease: + no significant valvular disease severe MAC mild increased RV sys pressure
[2022-10-29] MEDS ORDERED: SODIUM CHLORIDE 0.9% 250 ML IV PRN (13:44)
[2022-10-29] MEDS ORDERED: PHENYLEPHRINE HCL 10 MG/ML VIAL ONE (14:18)
[2022-10-29] MEDS ORDERED: ONDANSETRON INJ 2 MG/ML 2 ML VIAL ONE (14:18)
[2022-10-29] MEDS ORDERED: DEXAMETHASONE SOD INJ 4 MG/ML VIAL ONE (14:18)
[2022-10-29] MEDS ORDERED: GLYCOPYRROLATE 0.2 MG/ML VIAL ONE (14:18)
[2022-10-29] MEDS ORDERED: ePHEDrine sulfate 50 MG/ML AMP ONE (14:22)
--- NOTE | 2022-10-29 15:20 | XRay Report ---
XR hip LT 1V CLINICAL HISTORY: LT HIP CROSS TABLE IN OR TECHNIQUE: 1 views of the left hip and single frontal view of the pelvis were obtained. Comparison: None available at the time of this dictation. FINDINGS: Patient is status post hip arthroplasty placement. No fracture is seen. IMPRESSION: Patient is status post hip arthroplasty. ACT 112: Negative or not required by law. Electronically signed by: Edison Montana M.D. 10/29/2022 3:19 PM
--- NOTE | 2022-10-29 16:09 | Post Operative Brief Note ---
Immediate Post Op Note v1 Date of Surgery October 29, 2022 Pre & Post Diagnosis Operation Date: 10/29/22 13:30 Pre-Op Diagnosis: Left displaced femoral neck fracture Post-Op Diagnosis: Left displaced femoral neck fracture I identified the patient and participated in the time-out.: Yes Procedure Operation Date: 10/29/22 13:30 Actual Procedures p Left Hip Hemiarthroplasty, Cemented(Left) - Toy Flores MD Surgeon Toy Flores MD Geographic Information Systems Director Kym Elise MD Estimated Blood Loss 175 Findings Consistent with Post-Op Diagnosis Fluids 1200 cc Specimens left femoral head Drains Boucher Catheter Anesthesia Type General Complications none
--- NOTE | 2022-10-29 16:09 | Operative Report ---
Post Operative Report Pre & Post Diagnosis Operation Date: 10/29/22 13:30 Pre-Op Diagnosis: Left displaced femoral neck fracture Post-Op Diagnosis: Left displaced femoral neck fracture I identified the patient and participated in the time-out.: Yes Procedure Operation Date: 10/29/22 13:30 Actual Procedures p Left Hip Hemiarthroplasty, Cemented(Left) - Toy Flores MD Surgeon Toy Flores MD Special Education Resource Teacher Kym Elise MD Estimated Blood Loss 175 Findings See Below Displaced left femoral neck fracture Fluids 1200 cc Specimens left femoral head Drains Boucher Anesthesia Type General Complications none Indications The patient is a 77 year old female who sustained a Traumatic Osteoporotic/pathologic fracture of left femoral neck in setting of ground level fall. After orthopedic consult discussing the patients treatment options of conservative versus surgical intervention, she agreed for a planned hemiarthroplasty. Since the patient was ambulatory prior to the injury and to avoid the risks of bed sores, pulmonary complications, and to give the patient the best chance for ambulation, I recommended surgery. The patient understands the risks of surgery, which include but are not limited to: bleeding, infection, re-operation, damage to nerves and arteries, continued pain, failure of the hardware, dislocation, DVT, and . In addition the patient is aware of the 20-30% morbidity associated with hip fracture for up to 1 year following a hip fracture. The patient understands all of these instructions and explanations, all of their questions have been satisfactorily addressed. The patient has elected to proceed with surgery and the informed consent was signed. Description of Procedure IMPLANTS: 1) LD/Fx, Size 12 Cemented (Nely/Biomet). 2) Femoral Head 28mm Diameter, + 0 mm Neck Length. 3) 47 mm Multipolar Bipolar Cup. 4) 28 mm ID Liner, Multipolar Bipolar Cup. 5) Distal Centralizer 11 mm. 6) Palacos G cement x 2 PROCEDURE: The patient was taken to the Operating Room and placed in the lateral position with Stulberg following general anesthesia administration. A multidisciplinary time-out was performed identifying my initials on the left lower limb as the correct and operative limb. Prior to the incision being made, 2 grams of intravenous Ancef were given. The left lower extremity was prepped in the standard fashion. The trochanter was marked as was the planned incision 1/3 proximal and 2/3 distal to the tip of the greater trochanter. The incision was injected with a 50:50 mixture of 1% Lidocaine epi and 0.5% Bupivacaine plain for a total of 10cc. A standard posterior approach was made. The planned incision was carried down through the Tensor Fascia Nati, which was then split in-line with its fibers. The Gluteus Roberto was bluntly dissected. The Piriformis and short external rotators were dissected off the capsule and femur and tagged for later repair. The capsule was incised and freed off the fracture fragments. The Neck cut was made to allow removal of the femoral head and comminuted fragments. The femoral canal was prepared with Box osteotome, followed by a canal finder. The femur was sequentially broached in the standard fashion, and trial heads were placed. Fluoroscopy was brought in to ensure adequate proper alignment, fill of the canal, head size, and leg length. Fluoroscopy showed good canal fill and good position. The trial components were removed and the wound and femoral canal were copiously irrigated and dried. The femur was cemented using 3rd generation technique followed by placement of the components in the standard fashion and the hip reduced. There was excellent stability with no sense of dislocation with 20 degrees adduction, flexion 90 degrees, and internal rotation to 40 degrees. The wounds were copiously irrigated. The External rotators and capsule were closed over bone bridges with #2 FiberWire. The Tensor Fascia Nati was closed with #1 Vicryl and 0 Stratafix. The subcutaneous fat had a few stay sutures placed using 0 Vicryl. The subcutaneous tissue was closed with 3-0 Vicryl. The skin was closed with sunil. The incisions were covered with 4 x 4's, ABD, and foam tape. The patient was transferred to her hospital bed and taken to the PACU in stable condition. The sponge and needle counts were correct. Post-op Instructions: The patient was admitted back to the Med/Surg floor on the hospitalist service. Final x-rays will be obtained in the PACU. The patient will be WBAT with a walker. The patient will be seen by PT/OT. Total hip precautions will be followed. The patient's labs will be checked in the am. DVT prophylaxis will be with TEDs, mechanical devices and Lovenox. I attest to the content of the Intraoperative Record and any orders documented therein. Any exceptions are noted below.
[2022-10-29] MEDS ORDERED: LABETALOL HCL IV 5 MG/ML 20ML IV PRN (16:32)
[2022-10-29] MEDS ORDERED: ONDANSETRON INJ 2 MG/ML 2 ML VIAL IV PRN (16:32)
[2022-10-29] MEDS ORDERED: NALOXONE HCL 0.4 MG/1 ML VIAL/CARP IV PRN (16:32)
[2022-10-29] MEDS ORDERED: ePHEDrine sulfate 50 MG/ML AMP IV PRN (16:32)
[2022-10-29] MEDS ORDERED: ATROPINE SULFATE 0.1 MG/ML 10ML SYR IV PRN (16:32)
[2022-10-29] MEDS ORDERED: HYDROmorphone INJ 1 MG/ML SYRINGE IV PRN (16:32)
[2022-10-29] MEDS ORDERED: PROMETHAZINE HCL 12.5 MG in SODIUM CHLORIDE 0.9% 50 ML IV PRN (16:32)
[2022-10-29] MEDS: fentaNYL citrate 100 MCG/2 ML VIAL IV PRN ×4 (16:49→17:04)
[2022-10-29 17:00] LABS: Hematocrit (blood only) 29.4 % (34.1-44.9); Hemoglobin 10.1 g/dl (12.0-16.0)
--- NOTE | 2022-10-29 17:06 | Anesthesiology Progress Note ---
Date of Service October 29, 2022 Anesthesia Post Procedure Vital Signs Vital Signs: Temp Pulse Pulse Pulse Resp BP Pulse Ox 10/29/22 17:00 79 16 108/63 99 10/29/22 16:50 79 16 89/54 L 94 10/29/22 16:40 79 16 91/52 L 94 10/29/22 16:32 36.1 C L 87 16 121/67 99 10/29/22 12:51 36.5 C 85 18 116/63 95 10/29/22 07:42 36.5 C 71 18 103/64 97 10/28/22 21:41 36.4 C L 74 16 113/59 L 91 10/28/22 20:51 74 108/65 O2 Del Method O2 Flow Rate 10/29/22 17:00 Nasal Cannula 2 10/29/22 16:50 Oxymask 5 10/29/22 16:40 Oxymask 5 10/29/22 16:32 Oxymask 5 10/29/22 12:51 Room Air 10/29/22 07:42 Room Air 10/28/22 21:41 Room Air 10/28/22 20:51 Pain Intensity Left Hip: Pain Intensity: 4 Transfer of Care Handoff Completed per policy Notes Mental Status: alert / awake / arousable Patient Amnestic to Procedure: Yes Nausea / Vomiting: adequately controlled Pain: adequately controlled Airway Patency, RR, SpO2: stable & adequate BP & HR: stable & adequate Hydration State: stable & adequate Anesthetic Complications: no major complications apparent
[2022-10-29] MEDS ORDERED: fentaNYL 12 MCG/HR TDSY TD SCH (17:34)
[2022-10-29] MEDS ORDERED: CHECK fentaNYL PATCH PLACEMENT SCH (17:34)
[2022-10-29] MEDS ORDERED: POLYETHYLENE (MIRALAX) 17 GM PACK PO PRN (17:34)
[2022-10-29] MEDS ORDERED: LORazepam 0.5 MG TAB PO PRN (17:34)
[2022-10-29] MEDS ORDERED: CALCIUM CARBONATE 500 MG CHEWABLE TAB PO PRN (17:34)
[2022-10-29] MEDS ORDERED: LIDOCAINE 4% OP SOLN DROP CHARGE OP SCH (18:00)
--- NOTE | 2022-10-29 18:14 | XRay Report ---
XR hip LT min 2V HISTORY: 77 years-old Female Post-Operative implant position left hip arthroplasty COMPARISON: Radiographs October 27, 2022 TECHNIQUE: AP and crosstable lateral views of the left hip FINDINGS: Satisfactory alignment of the left hip total joint arthroplasty. Lateral skin sunil are present willow ng with expected soft tissue swelling with deep tissue air. No additional acute fracture or malalignm ent. IMPRESSION: Left hip total joint arthroplasty with expected postoperative changes. ACT 112: Negative or not required by law. The above report was generated using voice recognition software. It may contain grammatical, syntax o r spelling errors. Electronically signed by: Damion Kelly M.D. 10/29/2022 6:13 PM
[2022-10-29] MEDS ORDERED: PROPARACAINE 0.5% 225 DROPS/15 ML BTL ONE (18:48)
--- NOTE | 2022-10-29 19:03 | Procedure Note ---
Procedure Note Date of Service October 29, [address] Mccall to evaluate this patient for possible corneal abrasion. She evidently had surgery today and postsurgery was complaining of pain in the left eye. Patient seen in room 382 -2. She complained of pain in the left eye only not involving the right eye. Performed fluorescein staining to the left eye with her permission. Using magnified Randall lamp evidence of a small 1 x 2 mm abrasion at the center of the corneal maybe just below the horizon. Did not perform any additional testing, eye pressure testing, or formal slit-lamp evaluation. Discussed with hospitalist patient appears to have corneal abrasion recommendation for eye patch and erythromycin ointment. Coding
[2022-10-29] MEDS: ceFAZolin 2000MG 2,000 MG/15 ML SYR IV SCH (19:27)
[2022-10-29] MEDS: allopurinoL 300 MG TAB PO SCH (21:12)
[2022-10-29] MEDS: POTASSIUM CHLORIDE 10 MEQ TABCR PO SCH (21:12)
[2022-10-29] MEDS: oxyCODONE HCL IR 5 MG TAB (IMMEDIATE RELEASE) PO PRN (21:12)
[2022-10-29] MEDS: MELATONIN 3 MG TAB PO PRN (22:00)
--- NOTE | 2022-10-29 22:13 | Hospitalist Progress Note ---
Date of Service October 29, 2022 Assessment & Plan (1) Closed hip fracture: Plan: 77yo female with a history of lung cancer (s/p recent radiation treatments), HTN, HLD, T2DM, gout, and MARI presents with left hip pain after a fall at home. Acute left hip fracture Patient presents with acute left hip pain after a mechanical fall at home Pain control: Patient's home fentanyl patch scheduled Ibuprofen prn mild pain Morphine prn mod/severe pain Ortho consulted S/p ortho repair. PT/OT ordered Hyponatremia Suspect secondary to poor PO intake; currently euvolemic but likely secondary to IVF started in ED Trend BMP DM2 HbA1c 6.9% (09/2022) Patient's home regimen held on admission Continue BSG checks, sliding-scale insulin, hypoglycemic protocol HTN: BP currently well-controlled, patient not on BP meds at home - continue to monitor History of SVT: continue home amiodarone MARI: home buspar Gout: home allopurinol FEN: NPO at midnight pending possible orthopedic procedure, LR@75mL/hr Code status: DNI (chest compressions OK, defibrillation OK) DVT ppx: lovenox Consults: orthopedic surgery PT/OT: consulted Dispo: med/surg (2) Hyperlipidemia: (3) Hypertension: (4) Small cell lung cancer: (5) Type 2 diabetes mellitus: (6) Anxiety: (7) Cornea abrasion: Plan: Patient appears to have suffered from a corneal abrasion during surgery. This is likely what is causing the pain. Will have ED confirm possible diagnosis. Dr. Espinoza reviewed the patient and noted a 1x2mm abrasion of her lower pole. Given the small size, will give supportive care, anticipate pain should improve tomorrow. Admission and Anticipated Discharge Date Admission Date: October 27, 2022 Subjective Patient seen after hip surgery. Complaining of left eye pain. Review of Systems Review of Systems: All systems reviewed & are unremarkable except as noted in HPI & below Physical Exam Physical Exam: Constitutional: well-appearing, no acute distress HEENT: NCAT, conjunctival injection noted on lower pole of eye, pain when looking up. Ocular globus is nontender to palpation when placing gentle pressure while eyelids were closed. CV: regular rhythm, no murmur appreciated, extremities well-perfused, no LE edema Resp: CTABL, no wheezes/rales/rhonchi appreciated, no increased work of breathing GI: soft, nondistended, nontender, BS normoactive MSK: see ED provider note Skin: no L hip bruising noted, no other skin abnormalities noted Neuro: alert, oriented, no focal neurologic deficit appreciated Results & Data Results & Data ([facility] [place]) Vital Signs (Past 12 Hours) Vital Signs Temp Pulse Pulse Resp BP Pulse Ox O2 Del Method 10/29/22 20:35 36.5 C 86 18 103/59 L 95 Nasal Cannula 10/29/22 19:00 36.4 C L 89 120/73 98 Nasal Cannula 10/29/22 18:03 88 106/64 99 Nasal Cannula 10/29/22 17:30 36.7 C 88 20 109/67 99 Nasal Cannula 10/29/22 17:15 36.4 C L 10/29/22 17:10 83 16 96/50 L 99 Nasal Cannula 10/29/22 17:00 79 16 108/63 99 Nasal Cannula 10/29/22 16:50 79 16 89/54 L 94 Oxymask 10/29/22 16:40 79 16 91/52 L 94 Oxymask 10/29/22 16:32 36.1 C L 87 16 121/67 99 Oxymask 10/29/22 12:51 36.5 C 85 18 116/63 95 Room Air O2 Flow Rate 10/29/22 20:35 2 10/29/22 19:00 2 10/29/22 18:03 2 10/29/22 17:30 2 10/29/22 17:15 10/29/22 17:10 2 10/29/22 17:00 2 10/29/22 16:50 5 10/29/22 16:40 5 10/29/22 16:32 5 10/29/22 12:51 PG Care Time/CCT Total # of Minutes Spent Total Time Spent with Patient: Total time spent is greater than 50% in coordination of care (as documented) at patient's floor/unit and/or counseling patient: Coding Level of Care Code 35390 SUB INP/OBS CARE 3/50MIN Diagnoses Closed hip fracture S72.009A Hyperlipidemia E78.5 Hypertension I10 Small cell lung cancer C34.90 Type 2 diabetes mellitus E11.9 Anxiety F41.9 Cornea abrasion S05.00XA Time Spent (min) 50
[2022-10-30] MEDS: ceFAZolin 2000MG 2,000 MG/15 ML SYR IV SCH (03:06)
[2022-10-30 06:41] LABS: Hematocrit (blood only) 26.2 % (34.1-44.9); Hemoglobin 8.8 g/dl (12.0-16.0); Mean Corpuscular Hemoglobin 29.9 pg (25.0-34.0); Mean Corpuscular Hgb Conc 33.6 g/dL (32.0-36.0); Mean Corpuscular Volume 89.1 fL (80.0-100.0); Mean Platelet Volume 9.5 fL (9.4-12.3); Platelet Count 226 K/uL (130-400); RDW Coefficient of Variation 19.9 % (11.5-14.5); RDW Standard Deviation 64.6 fL (36.4-46.3); Red Blood Count 2.94 M/uL (3.93-5.22); White Blood Count 6.56 K/ul (4.8-10.8)
[2022-10-30 07:06] LABS: Calcium 7.8 mg/dl (8.5-10.1); Creatinine Clr Calc Pharmacy 85.9 ml/min; Est GFR (African American) 106.7 ml/min; Est GFR (Non-African American) 92.1 ml/min
[2022-10-30 07:07] LABS: Acanthocytes 1+; Basophils # (auto) 0.01 K/uL (0-0.2); Basophils % (auto) 0.2 %; Immature Granulocytes # (auto) 0.09 K/uL (0.00-0.02); Immature Granulocytes % (auto) 1.4 %; Lymphocytes # (auto) 0.33 K/uL (1.2-3.4); Monocytes # (auto) 0.18 K/uL (0.24-0.82); Monocytes % (auto) 2.7 %; Neutrophils # (auto) 5.95 K/uL (1.4-6.5); Neutrophils % (auto) 90.7 %
--- NOTE | 2022-10-30 07:20 | Orthopedic Progress Note ---
Date of Service October 30, 2022 Assessment & Plan (1) Left displaced femoral neck fracture: Plan: POD #1 s/p L hip hemiarthroplasty, doing as well as expected. resume diet. WBAT with walker. OOB to chair. Continue pain control. Continue Total hip precautions. DVT prophylaxis: TEDs 3 weeks, foot pumps while in hospital, Lovenox 30 mg BID for 6 weeks. PT/OT. Keep Dressing on, change as needed; if patient discharged before Tuesday11/01/22 change dressing to Silverlon. Continue care per Hospitalist service. D/C planning. Follow up in office in 2 weeks to evaluate the incision and possibly remove some of the sunil. Patient aware I will be out of town next few days. If any issues please I will have my cell phone with me or contact Ortho on-call for [facility]. Present on Admission?: Yes Admission and Anticipated Discharge Date Admission Date: October 27, 2022 Subjective Hip is doing well. Her biggest complaint was of left eye pain overnight which has signifcantly improved. Physical Exam Physical Exam: LLE: BCR < 2 sec. Sensation to light touch intact distally. Wiggling ankle and toes. Calf soft and non-tender. Dressing is clean, dry, intact. Abduction pillow in place. Results & Data ([facility]) Vital Signs (Past 12 Hours) Vital Signs Temp Pulse Resp BP Pulse Ox O2 Del Method O2 Flow Rate 10/30/22 05:17 36.5 C 75 18 113/68 98 Room Air 10/29/22 23:51 36.5 C 74 16 114/70 95 Nasal Cannula 2 10/29/22 20:35 36.5 C 86 18 103/59 L 95 Nasal Cannula 2 Laboratory Results Laboratory Results WBC 6.56 K/ul (4.8-10.8) 10/30/22 05:55 RBC 2.94 M/uL (3.93-5.22) L 10/30/22 05:55 Hgb 8.8 g/dl (12.0-16.0) L 10/30/22 05:55 Hct 26.2 % (34.1-44.9) L 10/30/22 05:55 MCV 89.1 fL (80.0-100.0) 10/30/22 05:55 MCH 29.9 pg (25.0-34.0) 10/30/22 05:55 MCHC 33.6 g/dL (32.0-36.0) 10/30/22 05:55 RDW Std Deviation 64.6 fL (36.4-46.3) H 10/30/22 05:55 RDW Coeff of Charlie 19.9 % (11.5-14.5) H 10/30/22 05:55 Plt Count 226 K/uL (130-400) 10/30/22 05:55 MPV 9.5 fL (9.4-12.3) 10/30/22 05:55 Immature Gran % (Auto) 1.4 % 10/30/22 05:55 Neut % (Auto) 90.7 % 10/30/22 05:55 Lymph % (Auto) 5.0 % 10/30/22 05:55 [place] % (Auto) 2.7 % 10/30/22 05:55 Eos % (Auto) 0.0 % 10/30/22 05:55 Baso % (Auto) 0.2 % 10/30/22 05:55 Neut # (Auto) 5.95 K/uL (1.4-6.5) 10/30/22 05:55 Lymph # (Auto) 0.33 K/uL (1.2-3.4) L 10/30/22 05:55 [place] # (Auto) 0.18 K/uL (0.24-0.82) L 10/30/22 05:55 Eos # (Auto) 0.00 K/uL (0-0.50) 10/30/22 05:55 Baso # (Auto) 0.01 K/uL (0-0.2) 10/30/22 05:55 Immature Gran # (Auto) 0.09 K/uL (0.00-0.02) H 10/30/22 05:55 Polychromasia 1+ 10/27/22 20:09 Anisocytosis Present 10/27/22 20:09 Echinocytes 1+ 10/27/22 20:09 Acanthocytes (Spur) 1+ 10/30/22 05:55 PT 12.1 Seconds (9.0-12.0) H 10/28/22 07:10 INR 1.1 (0.9-1.1) 10/28/22 07:10 APTT 27.3 Seconds (21.0-31.0) 10/27/22 20:09 PTT Ratio 1.0 10/27/22 20:09 Sodium 130 mmol/L (136-145) L 10/30/22 05:55 Potassium 4.0 mmol/L (3.5-5.1) 10/30/22 05:55 Chloride 95 mmol/L (98-107) L 10/30/22 05:55 Carbon Dioxide 28 mmol/L (21-32) 10/30/22 05:55 Anion Gap 7 (3-11) 10/30/22 05:55 BUN 10 mg/dl (6-23) 10/30/22 05:55 Creatinine 0.50 mg/dl (0.6-1.2) L 10/30/22 05:55 Est Cr Clr Drug Dosing 85.9 ml/min 10/30/22 05:55 Est GFR ( Amer) 106.7 ml/min 10/30/22 05:55 Est GFR (Non-Af Amer) 92.1 ml/min 10/30/22 05:55 BUN/Creatinine Ratio 20.0 (10-20) 10/30/22 05:55 Glucose 83 mg/dl (70-99(Fasting)) 10/30/22 05:55 POC Glucose 102 mg/dl (70-99) H 10/29/22 20:32 Calcium 7.8 mg/dl (8.5-10.1) L 10/30/22 05:55 Phosphorus 3.7 mg/dl (2.5-4.9) 10/28/22 07:10 Magnesium 1.8 mg/dl (1.7-2.4) 10/28/22 07:10 Total Bilirubin 0.6 mg/dl (0.2-1.0) 10/28/22 07:10 AST 19 U/L (13-39) 10/28/22 07:10 ALT 15 U/L (7-52) 10/28/22 07:10 Alkaline Phosphatase 213 U/L (34-104) H 10/28/22 07:10 Total Protein 4.9 gm/dl (6.0-8.3) L 10/28/22 07:10 Albumin 2.5 gm/dl (3.4-5.0) L 10/28/22 07:10 Globulin 2.4 gm/dl (2.5-4.0) L 10/28/22 07:10 Albumin/Globulin Ratio 1.0 (0.9-2) 10/28/22 07:10 Urine Color Yellow 10/27/22 23:20 Urine Appearance Turbid (Clear) A 10/27/22 23:20 Urine pH 6.0 (4.5-7.5) 10/27/22 23:20 Ur Specific [place] 1.016 (1.000-1.030) 10/27/22 23:20 Urine Protein 2+ (Negative) H 10/27/22 23:20 Urine Glucose (UA) Negative (Negative) 10/27/22 23:20 Urine Ketones Trace (Negative) H 10/27/22 23:20 Urine Blood 3+ (Negative) H 10/27/22 23:20 Urine Nitrite Positive (Negative) A 10/27/22 23:20 Urine Bilirubin Negative (Negative) 10/27/22 23:20 Urine Urobilinogen Negative (Negative) 10/27/22 23:20 Ur Leukocyte Esterase 3+ (Negative) H 10/27/22 23:20 Urine WBC (Auto) >30 /hpf (0-5) H 10/27/22 23:20 Urine RBC (Auto) >30 /hpf (0-4) H 10/27/22 23:20 U Hyaline Cast (Auto) 1-5 /lpf (0-5) 10/27/22 23:20 U Epithel Cells (Auto) >30 /lpf (0-5) H 10/27/22 23:20 Urine Bacteria (Auto) 4+ (Negative) H 10/27/22 23:20 SARS-CoV-2, RNA, NAAT NEGATIVE (NEGATIVE) 10/27/22 22:03 Blood Type O Positive 10/29/22 09:02 Blood Type Recheck O Positive 10/29/22 16:46 Antibody Screen NEGATIVE 10/29/22 09:02 Crossmatch See Detail 10/29/22 09:02 Impressions Chest X-Ray 10/27/22 20:02 SUPINE PORTABLE AP CHEST RADIOGRAPH CLINICAL HISTORY: Hip fracture. Lung cancer. COMPARISON STUDY: Chest radiograph September 30, [address] October 08, 2022. FINDINGS: Left internal jugular [id number] is in place. There is no pneumothorax or pleural effusion. Cardiomegaly is unchanged. No pneumothorax identified on supine exam. Underlying emphysema. Mild interstitial thickening is likely chronic. Right upper lobe mass and associated mediastinal and right hilar lymphadenopathy is better depicted on prior chest CT. IMPRESSION: 1. No acute cardiopulmonary findings. No significant change in appearance of the chest. 2. Right upper lobe mass and associated lymphadenopathy, better depicted on prior chest CT. ACT 112: Negative or not required by law. Electronically signed by: Elan Dotson M.D. 10/27/2022 9:24 PM Hip/Pelvis X-Ray 10/27/22 20:02 XR hip LT 2V w pelvis CLINICAL HISTORY: fall, pain COMPARISON: CT of the abdomen and pelvis August 17, 2022. FINDINGS: There is an acute displaced left femoral neck fracture. No acute pelvic or proximal right femoral fractures are noted. Calcified fibroid is incidentally noted. IMPRESSION: Acute displaced left femoral neck fracture. ACT 112: Negative or not required by law. Electronically signed by: Elan Dotson M.D. 10/27/2022 9:01 PM Hip X-Ray 10/29/22 17:34 XR hip LT min 2V HISTORY: 77 years-old Female Post-Operative implant position left hip arthroplasty COMPARISON: Radiographs October 27, 2022 TECHNIQUE: AP and crosstable lateral views of the left hip FINDINGS: Satisfactory alignment of the left hip total joint arthroplasty. Lateral skin sunil are present along with expected soft tissue swelling with deep tissue air. No additional acute fracture or malalignment. IMPRESSION: Left hip total joint arthroplasty with expected postoperative changes. ACT 112: Negative or not required by law. The above report was generated using voice recognition software. It may contain grammatical, syntax or spelling errors. Electronically signed by: Damion Kelly M.D. 10/29/2022 6:13 PM
[2022-10-30] MEDS: CHECK fentaNYL PATCH PLACEMENT SCH ×3 (08:01→15:29)
[2022-10-30] MEDS: FUROSEMIDE 20 MG TAB PO SCH (08:02)
[2022-10-30] MEDS: busPIRone 5 MG TAB PO SCH ×2 (08:02→20:25)
[2022-10-30] MEDS: AMIODARONE 200 MG TAB PO SCH ×2 (08:02→20:42)
[2022-10-30] MEDS: PANTOprazole 40 MG TAB PO SCH (08:02)
[2022-10-30] MEDS: SODIUM CHLORIDE 1 GM TABLET PO SCH (08:02)
[2022-10-30] MEDS: POTASSIUM CHLORIDE 10 MEQ TABCR PO SCH ×2 (08:02→20:25)
[2022-10-30] MEDS: HEPARIN 100 UNIT/ML 5ML FLUSH FLUSH PRN (08:26)
[2022-10-30] MEDS: INSULIN ASPART PER UNIT SC SCH ×4 (09:29→21:21)
[2022-10-30] MEDS: ERYTHROMYCIN OP OINT 1 GM PKT OP SCH ×2 (09:30→21:21)
[2022-10-30] MEDS: MoRPHine SULFATE 2 MG/ML CARP IV PRN ×2 (10:01→23:57)
[2022-10-30] MEDS ORDERED: ENOXAPARIN INJ 40 MG/0.4 ML SYR SQ ONE (14:30)
[2022-10-30] MEDS: oxyCODONE HCL IR 5 MG TAB (IMMEDIATE RELEASE) PO PRN ×2 (15:31→20:24)
--- NOTE | 2022-10-30 15:50 | Hospitalist Progress Note ---
Date of Service October 30, 2022 Assessment & Plan (1) Closed hip fracture: Plan: 77yo female with a history of lung cancer (s/p recent radiation treatments), HTN, HLD, T2DM, gout, and MARI presents with left hip pain after a fall at home. Acute left hip fracture Patient presents with acute left hip pain after a mechanical fall at home Pain control: Patient's home fentanyl patch scheduled Ibuprofen prn mild pain Morphine prn mod/severe pain Ortho consulted S/p ortho repair. PT/OT ordered awaiting placement Hyponatremia Suspect secondary to poor PO intake; currently euvolemic but likely secondary to IVF started in ED Trend BMP DM2 HbA1c 6.9% (09/2022) Patient's home regimen held on admission Continue BSG checks, sliding-scale insulin, hypoglycemic protocol HTN: BP currently well-controlled, patient not on BP meds at home - continue to monitor History of SVT: continue home amiodarone MARI: home buspar Gout: home allopurinol Code status: DNI (chest compressions OK, defibrillation OK) DVT ppx: lovenox Consults: orthopedic surgery PT/OT: consulted Dispo: med/surg (2) Hyperlipidemia: (3) Hypertension: (4) Small cell lung cancer: Plan: will need repeat imaging while inpatient as patient had this scheduled as an outpatient in the next few days. However, given that she is in house due to her hip fracture, if postponed, this could ultimately lead to a delay in her care. (5) Type 2 diabetes mellitus: (6) Anxiety: (7) Cornea abrasion: Plan: Patient appears to have suffered from a corneal abrasion during surgery. This is likely what is causing the pain. Will have ED confirm possible diagnosis. Dr. Espinoza reviewed the patient and noted a 1x2mm abrasion of her lower pole. Given the small size, will give supportive care. Pain improved on 10/30 Admission and Anticipated Discharge Date Admission Date: October 27, 2022 Subjective 77 yo female reports that her eye is no longer having any pain. Her daughter is at bedside and is asking if her CT scan can be completed while here in the ED< Review of Systems Review of Systems: All systems reviewed & are unremarkable except as noted in HPI & below Physical Exam Physical Exam: Constitutional: well-appearing, no acute distress HEENT: NCAT, conjunctival injection noted on lower pole of eye, pain when looking up. Ocular globus is nontender to palpation when placing gentle pressure while eyelids were closed. CV: regular rhythm, no murmur appreciated, extremities well-perfused, no LE edema Resp: CTABL, no wheezes/rales/rhonchi appreciated, no increased work of breathing GI: soft, nondistended, nontender, BS normoactive MSK: see ED provider note Skin: no L hip bruising noted, no other skin abnormalities noted Neuro: alert, oriented, no focal neurologic deficit appreciated Results & Data Results & Data ([facility]) Vital Signs (Past 12 Hours) Vital Signs Temp Pulse Resp BP Pulse Ox O2 Del Method 10/30/22 15:38 36.7 C 82 18 105/67 93 Room Air 10/30/22 12:00 36.4 C L 76 100/64 93 Room Air 10/30/22 08:22 36.4 C L 75 114/66 95 Room Air 10/30/22 05:17 36.5 C 75 18 113/68 98 Room Air PG Care Time/CCT Total # of Minutes Spent Total Time Spent with Patient: Total time spent is greater than 50% in coordination of care (as documented) at patient's floor/unit and/or counseling patient: Coding Level of Care Code 62447 SUB INP/OBS CARE 2/35MIN Diagnoses Closed hip fracture S72.009A Hyperlipidemia E78.5 Hypertension I10 Small cell lung cancer C34.90 Type 2 diabetes mellitus E11.9 Anxiety F41.9 Cornea abrasion S05.00XA
[2022-10-30] MEDS: LORazepam 0.5 MG TAB PO PRN (20:24)
[2022-10-30] MEDS: MELATONIN 3 MG TAB PO PRN (20:24)
[2022-10-30] MEDS: allopurinoL 300 MG TAB PO SCH (20:25)
[2022-10-31] MEDS: CHECK fentaNYL PATCH PLACEMENT SCH ×4 (00:10→23:48)
[2022-10-31] MEDS: LORazepam 0.5 MG TAB PO PRN ×2 (02:29→20:10)
[2022-10-31 07:18] LABS: Hematocrit (blood only) 24.6 % (34.1-44.9); Hemoglobin 8.5 g/dl (12.0-16.0); Mean Corpuscular Hemoglobin 30.2 pg (25.0-34.0); Mean Corpuscular Hgb Conc 34.6 g/dL (32.0-36.0); Mean Corpuscular Volume 87.5 fL (80.0-100.0); Mean Platelet Volume 9.6 fL (9.4-12.3); Platelet Count 204 K/uL (130-400); RDW Coefficient of Variation 19.4 % (11.5-14.5); RDW Standard Deviation 61.9 fL (36.4-46.3); Red Blood Count 2.81 M/uL (3.93-5.22); White Blood Count 4.86 K/ul (4.8-10.8)
[2022-10-31 07:41] LABS: BUN Creatinine Ratio 21.4 (10-20); Calcium 7.5 mg/dl (8.5-10.1); Creatinine Clr Calc Pharmacy 102.2 ml/min; Est GFR (Non-African American) 97.5 ml/min; Potassium 3.7 mmol/L (3.5-5.1)
[2022-10-31] MEDS: HEPARIN 100 UNIT/ML 5ML FLUSH FLUSH PRN (08:06)
[2022-10-31] MEDS: busPIRone 5 MG TAB PO SCH ×2 (08:50→20:10)
[2022-10-31] MEDS: oxyCODONE HCL IR 5 MG TAB (IMMEDIATE RELEASE) PO PRN ×3 (08:50→20:09)
[2022-10-31] MEDS: fentaNYL 25 MCG/HR TDSY TD SCH (08:50)
[2022-10-31] MEDS: FUROSEMIDE 20 MG TAB PO SCH (08:51)
[2022-10-31] MEDS: AMIODARONE 200 MG TAB PO SCH ×2 (08:51→20:09)
[2022-10-31] MEDS: PANTOprazole 40 MG TAB PO SCH (08:51)
[2022-10-31] MEDS: ERYTHROMYCIN OP OINT 1 GM PKT OP SCH ×2 (08:51→20:09)
[2022-10-31] MEDS: SODIUM CHLORIDE 1 GM TABLET PO SCH (08:51)
[2022-10-31] MEDS: POTASSIUM CHLORIDE 10 MEQ TABCR PO SCH ×2 (08:51→20:09)
[2022-10-31] MEDS: INSULIN ASPART PER UNIT SC SCH ×4 (08:51→21:17)
[2022-10-31] MEDS: ONDANSETRON 4 MG OD TAB PO PRN (08:57)
[2022-10-31] MEDS: ENOXAPARIN INJ 40 MG/0.4 ML SYR SQ SCH (08:59)
[2022-10-31] MEDS: MoRPHine SULFATE 2 MG/ML CARP IV PRN ×2 (11:14→22:57)
[2022-10-31] MEDS: allopurinoL 300 MG TAB PO SCH (20:09)
[2022-10-31] MEDS: MELATONIN 3 MG TAB PO PRN (20:09)
--- NOTE | 2022-10-31 21:42 | Hospitalist Progress Note ---
Date of Service October 31, 2022 Assessment & Plan (1) Closed hip fracture: Plan: 77yo female with a history of lung cancer (s/p recent radiation treatments), HTN, HLD, T2DM, gout, and MARI presents with left hip pain after a fall at home. Acute left hip fracture Patient presents with acute left hip pain after a mechanical fall at home Pain control: Patient's home fentanyl patch scheduled Ibuprofen prn mild pain Morphine prn mod/severe pain Ortho consulted S/p ortho repair. PT/OT ordered awaiting placement Hyponatremia Suspect secondary to poor PO intake; currently euvolemic but likely secondary to IVF started in ED Trend BMP DM2 HbA1c 6.9% (09/2022) Patient's home regimen held on admission Continue BSG checks, sliding-scale insulin, hypoglycemic protocol HTN: BP currently well-controlled, patient not on BP meds at home - continue to monitor History of SVT: continue home amiodarone MARI: home buspar Gout: home allopurinol Code status: DNI (chest compressions OK, defibrillation OK) DVT ppx: lovenox Consults: orthopedic surgery PT/OT: consulted Dispo: med/surg (2) Hyperlipidemia: (3) Hypertension: (4) Small cell lung cancer: Plan: will need repeat imaging while inpatient as patient had this scheduled as an outpatient in the next few days. However, given that she is in house due to her hip fracture, if postponed, this could ultimately lead to a delay in her care. Will obtain ct scan of her abd/pelvis on 11/01 (5) Type 2 diabetes mellitus: (6) Anxiety: (7) Cornea abrasion: Plan: Patient appears to have suffered from a corneal abrasion during surgery. This is likely what is causing the pain. Will have ED confirm possible diagnosis. Dr. Espinoza reviewed the patient and noted a 1x2mm abrasion of her lower pole. Given the small size, will give supportive care. Pain improved on 10/30 subsided on 10/31 Admission and Anticipated Discharge Date Admission Date: October 27, 2022 Subjective Patient reports no new pain. Review of Systems Review of Systems: All systems reviewed & are unremarkable except as noted in HPI & below Physical Exam Physical Exam: Constitutional: well-appearing, no acute distress HEENT: NCAT, conjunctival injection noted on lower pole of eye, pain when looking up. Ocular globus is nontender to palpation when placing gentle pressure while eyelids were closed. CV: regular rhythm, no murmur appreciated, extremities well-perfused, no LE edema Resp: CTABL, no wheezes/rales/rhonchi appreciated, no increased work of breathing GI: soft, nondistended, nontender, BS normoactive MSK: see ED provider note Skin: no L hip bruising noted, no other skin abnormalities noted Neuro: alert, oriented, no focal neurologic deficit appreciated Results & Data Results & Data ([facility]) Vital Signs (Past 12 Hours) Vital Signs Temp Pulse Resp BP Pulse Ox O2 Del Method 10/31/22 20:06 36.6 C 86 16 116/65 94 Room Air 10/31/22 16:24 36.6 C 88 18 107/69 94 Room Air PG Care Time/CCT Total # of Minutes Spent Total Time Spent with Patient: Total time spent is greater than 50% in coordination of care (as documented) at patient's floor/unit and/or counseling patient: Coding Level of Care Code 72765 SUB INP/OBS CARE 2/35MIN Diagnoses Closed hip fracture S72.009A Hyperlipidemia E78.5 Hypertension I10 Small cell lung cancer C34.90 Type 2 diabetes mellitus E11.9 Anxiety F41.9 Cornea abrasion S05.00XA
[2022-11-01] MEDS: LORazepam 0.5 MG TAB PO PRN ×2 (02:04→12:53)
[2022-11-01] MEDS: POTASSIUM CHLORIDE 10 MEQ TABCR PO SCH (08:14)
[2022-11-01] MEDS: ONDANSETRON 4 MG OD TAB PO PRN (08:14)
[2022-11-01] MEDS: SODIUM CHLORIDE 1 GM TABLET PO SCH (08:14)
[2022-11-01] MEDS: CHECK fentaNYL PATCH PLACEMENT SCH (08:14)
[2022-11-01] MEDS: busPIRone 5 MG TAB PO SCH (08:14)
[2022-11-01] MEDS: ENOXAPARIN INJ 40 MG/0.4 ML SYR SQ SCH (08:15)
[2022-11-01] MEDS: AMIODARONE 200 MG TAB PO SCH (08:15)
[2022-11-01] MEDS: PANTOprazole 40 MG TAB PO SCH (08:15)
[2022-11-01] MEDS: FUROSEMIDE 20 MG TAB PO SCH (08:15)
[2022-11-01] MEDS: ERYTHROMYCIN OP OINT 1 GM PKT OP SCH (08:16)
[2022-11-01 08:37] LABS: Hematocrit (blood only) 24.4 % (34.1-44.9); Hemoglobin 8.5 g/dl (12.0-16.0); Mean Corpuscular Hemoglobin 30.6 pg (25.0-34.0); Mean Corpuscular Hgb Conc 34.8 g/dL (32.0-36.0); Mean Corpuscular Volume 87.8 fL (80.0-100.0); Mean Platelet Volume 10.3 fL (9.4-12.3); Platelet Count 205 K/uL (130-400); RDW Coefficient of Variation 19.4 % (11.5-14.5); RDW Standard Deviation 62.2 fL (36.4-46.3); Red Blood Count 2.78 M/uL (3.93-5.22); White Blood Count 3.94 K/ul (4.8-10.8)
[2022-11-01] MEDS: INSULIN ASPART PER UNIT SC SCH ×2 (08:38→12:52)
[2022-11-01 08:52] LABS: BUN Creatinine Ratio 18.9 (10-20); Calcium 7.6 mg/dl (8.5-10.1); Est GFR (African American) 117.8 ml/min; Est GFR (Non-African American) 101.6 ml/min; Potassium 3.5 mmol/L (3.5-5.1)
[2022-11-01] MEDS: oxyCODONE HCL IR 5 MG TAB (IMMEDIATE RELEASE) PO PRN (10:32)
[2022-11-01] MEDS ORDERED: OPTIRAY 350 100ml IV ONE (10:57)
[2022-11-01] MEDS: HEPARIN 100 UNIT/ML 5ML FLUSH FLUSH PRN (12:53)
--- NOTE | 2022-11-01 13:33 | Discharge Summary ---
Date of Service November 01, 2022 Admission HPI Per Admitting Provider 77yo female with a history of lung cancer (s/p recent radiation treatments), HTN, HLD, T2DM, OA, and MARI presents with left hip pain after a fall at home. Patient reports she was reaching into a cupboard when she lost her balance and fell backwards onto her hip. Patient denies prodromal symptoms and denies post- fall symptoms beyond left hip pain. Patient denies head trauma or LOC.Patient denies fever, chills, headache, vision changes, CP, palpitations, SOB, edema, abdominal pain, nausea, vomiting, dysuria, hematochezia, melena, lightheadedness, dizziness, numbness, tingling, weakness, or other symptoms. Denies recent illness and recent travel. Patient does note she has not been eating much over the past few days/weeks. Upon arrival, vitals were notable for borderline-soft BP (97/60); no tachycardia, no tachypnea, patient afebrile, spO2 adequate on room air. Initial labs were notable for mild anemia (11.0), mild hyponatremia (130), and elevated alkphos (254). ; no leukocytosis, platelets wnl, no electrolyte abnormalities, creatinine not elevated, Tbili not elevated. In the ED, patient was given morphine 2mg IV and was started on LR @ 75mL/hr. EKG: NSR, no overt ischemic change CXR: no acute cardiopulmonary findings; right upper lobe mass and associated lymphadenopathy better depicted on prior chest CT XR hip/pelvis: acute displaced left femoral neck fracture Surrogate decision-maker in case of an emergency: daughter (Ludmila Elizabeth, cell: [phone]) Discharge Data Allergies Allergy/AdvReac Type Severity Reaction Status Date / Time No Known Allergies Allergy Verified 10/27/22 23:46 Consultations 10/27/22 21:15 ED Decision to Admit Stat 10/28/22 07:00 Consult Orthopedic Surgery Routine Procedures Performed Operation Date: 10/29/22 13:30 Actual Procedures p Left Hip Hemiarthroplasty, Cemented(Left) - Toy Flores MD Ordered Studies 11/01/22 08:10 CT Abd and Pelvis [CT abd pelvis oral and IV con] Routine Hospital Course (1) Closed hip fracture: 77yo female with a history of lung cancer (s/p recent radiation treatments), HTN, HLD, T2DM, gout, and MARI presents with left hip pain after a fall at home. Acute left hip fracture Traumatic Osteoporotic possible pathologic fracture of left femoral necklikely secondary to osteoporosis and/or bone metastasis Patient presents with acute left hip pain after a mechanical fall at home Pain control: Patient's home fentanyl patch scheduled Ibuprofen prn mild pain Morphine prn mod/severe pain Ortho consulted S/p ortho repair. PT/OT ordered awaiting placement Hyponatremia Suspect secondary to poor PO intake; currently euvolemic but likely secondary to IVF started in ED Trend BMP DM2 HbA1c 6.9% (09/2022) Patient's home regimen held on admission Continue BSG checks, sliding-scale insulin, hypoglycemic protocol HTN: BP currently well-controlled, patient not on BP meds at home - continue to monitor History of SVT: continue home amiodarone MARI: home buspar Gout: home allopurinol Code status: DNI (chest compressions OK, defibrillation OK) DVT ppx: lovenox Consults: orthopedic surgery PT/OT: consulted Dispo: med/surg (2) Hyperlipidemia: (3) Hypertension: (4) Small cell lung cancer: will need repeat imaging while inpatient as patient had this scheduled as an outpatient in the next few days. However, given that she is in house due to her hip fracture, if postponed, this could ultimately lead to a delay in her care. Will obtain ct scan of her abd/pelvis on 11/01 (5) Type 2 diabetes mellitus: (6) Anxiety: (7) Cornea abrasion: Patient appears to have suffered from a corneal abrasion during surgery. This is likely what is causing the pain. Will have ED confirm possible diagnosis. Dr. Espinoza reviewed the patient and noted a 1x2mm abrasion of her lower pole. Given the small size, will give supportive care. Pain improved on 10/30 subsided on 10/31 Discharge Plan Discharge Items Patient Disposition: Transfer Shelter Fac Reason For Visit: FALL, HIP FRACTURE Follow-up/Referrals: Delbert Miramontes MD [Primary Care Provider] - [employer] Provider Instructions: ORTHOPEDIC DISCHARGE INSTRUCTIONS -Weight bearing as tolerated with walker to assist in ambulation -Posterior hip precautions for 8 weeks: DO NOT flex your hip past 90, DO NOT internally rotate your foot/leg, DO NOT cross your legs -Please do rehab exercises as instructed -Frequently ice, at least 20 minutes 5 times a day. -You may shower on Post op Day 3. Leave Mepilex/Silverlon dressing in tact until follow up appt in 2 weeks. Your dressing is water-resistant, meaning you can shower with it on as long as it is in-tact. Letting some running water run over top of it from the shower is okay. You cannot submerge your incision in water. No baths, hot tubs or swimming pools. Keep dressing clean and dry. If your dressing starts to peel off or gets moisture under it, nursing may reinforce as needed. -DVT prophylaxis: Per hospitalist, FELISHA compression stockings for 3 weeks -While taking Aspirin, if you start to get upset stomach, we recommend taking over the counter Pepcid, 20mg twice a day as long as you are taking the Aspirin -Pain control: Recommend oxycodone 5mg every 4-6 hours as needed, Tylenol 500- 1000mg every 8 hours -To promote healing, please take 500mg Vitamin C twice a day with meals x 2 weeks and Iron 325 mg twice a day with meals x 2 weeks -While on narcotic pain medication and iron supplement, we recommend you take a stool softener to prevent constipation -Follow up in 2 weeks with [facility] for post op evaluation and Zip-line removal. Please call our office sooner @ [phone] if you have any questions or concerns Stand-Alone Forms: My [facility] Medications and DC Order Prescriptions: No Action furosemide [Lasix] 20 mg tablet 10 mg PO DAILY lorazepam [Ativan] 0.5 mg tablet 0.5 mg PO TID PRN (Reason: Anxiety) omeprazole 20 mg capsule,delayed release(DR/EC) 20 mg PO QAM Qty: 90 3RF amiodarone 200 mg Tablet 200 mg PO BID Qty: 60 2RF allopurinol 300 mg Tablet 300 mg PO HS Qty: 30 5RF sodium chloride 1 gram tablet 1,000 mg PO DAILY Qty: 30 2RF levalbuterol tartrate [Xopenex HFA] 45 mcg/actuation Hfa Aerosol Inhaler 2 puff inhalation Q6H PRN (Reason: cough/wheeze/shortness of breath) Qty: 1 0RF Rx Instructions: use with spacer device buspirone 5 mg Tablet 5 mg PO BID Qty: 7 0RF polyethylene glycol 3350 [Miralax] 17 gram Powder In Packet 17 g PO DAILY PRN (Reason: constipation) Qty: 15 0RF potassium chloride 10 mEq Tablet,Er Particles/Crystals 10 meq PO BID Qty: 30 0RF calcium carbonate [Calcium Antacid] 200 mg calcium (500 mg) Tablet,Chewable 1,000 mg PO Q6H PRN (Reason: Gi Upset) fentanyl 12 mcg/hr Patch 72 Hour 1 patch topical Q72H Rx Instructions: one patch to upper body, along with 25mcg patch, change every three days fentanyl 25 mcg/hr Patch 72 Hour 1 patch TRANSDERMAL Q72H Rx Instructions: apply one patch topically every three days along with 12mcg patch , to upper body ondansetron 4 mg Tablet,Disintegrating 4 mg PO Q6H PRN (Reason: Nausea) oxycodone 5 mg tablet 5 mg PO Q4H PRN (Reason: Pain (Scale Score 7-10)) Admission Data Admit Date/Time: 10/27/22 23:00 Attending Provider: Blanco Mccall Admit Provider: Kenton Mark Primary Care Provider: Delbert Miramontes [facility] ; [facility] [place] ; Alyson Elkins Dov A Coding Diagnoses Closed hip fracture S72.009A Hyperlipidemia E78.5 Hypertension I10 Small cell lung cancer C34.90 Type 2 diabetes mellitus E11.9 Anxiety F41.9 Cornea abrasion S05.00XA
--- NOTE | 2022-11-01 15:38 | CT Scan Report ---
CT abd pelvis oral and IV con CLINICAL HISTORY: metastatic cancer TECHNIQUE: Helical axial images of the abdomen and pelvis were obtained and displayed. Automated dose lowering techniques and/or adjustment according to patient size were utilized for this exam. This e xam was performed with intravenous contrast. CT DOSE: 601.29 mGy.cm COMPARISON: Comparison is made to CT abdomen pelvis 08/17/2022 and MRI lumbar spine 08/18/2022 FINDINGS: Lower chest: Mitral annular calcifications are seen. There is bilateral lower lung atelectasis. Liver: Redemonstration of numerous hypodense lesions in the liver, overall similar in size from prior CT abdomen pelvis. Gallbladder and biliary tree: Multiple gallstones are seen. No intra- or extrahepatic biliary ductal dilation. Pancreas: Unremarkable, no focal lesions. Spleen: Unremarkable. Adrenals: There is a 13 mm left adrenal lesion. Kidneys and ureters: Unremarkable. Bladder: In the dependent gas is noted, correlation with recent instrumentation is recommended. There is thickening of the bladder wall. Reproductive organs: Prostatic calcifications are seen which may represent prior hemorrhage or granul omatous disease. Postsurgical changes of TURP are suggested. Bowel: Diverticulosis is seen without evidence of diverticulitis. Postsurgical changes of right hemic olectomy are seen. Lymph nodes Retroperitoneal: Unremarkable. Pelvic: Unremarkable. Mesenteric: Unremarkable. Peritoneum: Normal. Vessels: Atherosclerotic calcifications are seen. Abdominal wall: Right fat-containing inguinal hernia. Bones: Postsurgical changes of left hip arthroplasty are seen with surrounding subcutaneous emphysema and mild soft tissue swelling. Interval significant worsening of lytic and blastic lesions are seen in the skeleton compatible with bony metastatic disease. Most prominently. Acute to subacute pathologic fracture of L1 with 2 mm retr opulsion. Redemonstration of L4 and L5 fractures. IMPRESSION: 1. Interval stability of multiple hepatic masses. 2. Interval significant worsening of extensive skeletal disease is again seen with most prominent in volvement of the right L5 vertebral body. Acute to subacute appearing pathologic fracture of L1 with minimal retropulsion and increased loss of height at L4. 3. Postsurgical changes of recent left hip arthroplasty. 4. Bladder wall thickening with postsurgical changes of TURP. Correlation with urinalysis is recomme nded to exclude urinary tract infection. 5. Cholelithiasis without cholecystitis. 6. Additional findings as above. ACT 112: Negative or not required by law. Electronically signed by: Edison Montana M.D. 11/01/2022 3:36 PM
== END 2022-11-01 14:13 | DRG 522 ==
LOC: ED 19:54 → 3N 10-28 → SUATTDRO 10-28 → 3N 10-28 03:11

== ENCOUNTER 2022-11-22 21:49 | Observation (INO) ==
[2022-11-22] MEDS ORDERED: MoRPHine SULFATE 2 MG/ML CARP IV PRN (22:20)
[2022-11-22] MEDS ORDERED: ACETAMINOPHEN 1,000 MG/100 ML VIAL IV STA (22:20)
[2022-11-22] MEDS ORDERED: MoRPHine SULFATE 4 MG/ML 1 ML CARP\\VIAL IV STA (22:20)
[2022-11-22] MEDS ORDERED: ONDANSETRON INJ 2 MG/ML 2 ML VIAL IV STA (22:20)
--- NOTE | 2022-11-22 22:26 | Emergency Department Note ---
Impression & Plan Dislocation, hip closed, Anemia, Fall, S/P hip replacement ED Provider Note NAME: WINNIE THOMSON AGE: 77 SEX: F : 1945 ARRIVES VIA: Ambulance INFORMANT: [Patient] ED PROVIDER(S): [Yonatan Najera MD] CHIEF COMPLAINT: Hip pain HISTORY OF PRESENT ILLNESS: The patient is a 77-year-old female who had a left hip replacement performed on the of last month, about 3 weeks ago. The patient states that she was on the toilet tonight and she reached for the toilet paper when she fell off the toilet and landed on her left hip. She now has severe pain in the left hip. She has not had cough or cold or congestion. She had been in baseline health prior to this fall. The patient last had something to eat at around 5 PM, about 5-1/2 hours ago. The patient states that she feels the urge to urinate but, is afraid to because of how much pain she has in the left hip. PMHx/PSHx: See Below SOCIAL HISTORY: See Below. PHYSICAL EXAM: GENERAL: Patient is in no acute distress. HEENT: No acute trauma, normocephalic atraumatic, mucous membranes moist, no nasal congestion. NECK: No stridor, no adenopathy, no meningismus, trachea is midline. LUNGS: Few scattered wheezes heard in the right, no respiratory distress, breath sounds equal. HEART: Without murmurs gallops or rubs, regular rate and rhythm. ABDOMEN: Soft, mildly tender over the bladder with some mild bladder distention. No peritonitis. EXTREMITIES: Patient does have shortening of the left lower extremity when compared to the right. She is tender to palpate in the area of the left lateral hip. The surgical site looks to be healing well without signs of cellulitis. Patient is able to move all the toes in the left lower extremity, her foot is warm with a strong dorsalis pedis pulse. NEUROLOGIC: Oriented x 3, no acute motor or sensory deficits, no focal weakness. SKIN: No rash, no jaundice, no diaphoresis. Pale. DIFFERENTIAL DIAGNOSIS: Left hip fracture, prosthetic fracture, left hip dislocation, left hip hematoma, urinary retention, neurovascular compromise, among others EMERGENCY DEPARTMENT COURSE/PROCEDURES: Prior/Outside records reviewed: Recent discharge summary. EMS records. ECG per my interpretation: Indication was fall. The ECG shows a normal sinus rhythm with a rate of 85. There is some baseline artifact. There is no ST elevation, no PVCs. The QTc is 490 Continuous Cardiac Monitoring per my interpretation: An order was placed for continuous cardiac monitoring. The monitor shows a rate of 91 with normal sinus rhythm. MEDICAL DECISION MAKING: There is no leukocytosis. The patient does have an anemia, this has been documented before. There is a normal platelet count. No concerning coagulopathy. Sodium was somewhat low at 131 but not in need of emergent c orrection. No renal failure. No concerning liver enzyme elevation. COVID test was negative. Left hip and pelvis films show a superior hip dislocation. No obvious fracture. On exam, the patient was neurovascular intact distally in the left lower extremity. I could not find any evidence for injury elsewhere on my exam. The patient received IV saline, IV morphine, IV Zofran. She received IV Tylenol. I did speak with orthopedics. The patient cannot undergo sedation in the ER until the early a.m. given her dinnertime meal. Orthopedics has decided to have the patient hospitalized overnight and taken to the OR in the smooth stucco resurfacer for the reduction procedure. I spoke with the patient, I did speak with case management, she is currently resting much more comfortably. She is aware of the plan for a early a.m. procedure. The on-call hospitalist was consulted. Of note, the on-call orthopedist did ask that I order a CT of the left hip, this was ordered as requested and the result is currently pending. DISPOSITION: Given the patient's findings, hospitalization was felt warranted. Past Med/Surg History Medical History Alcohol intoxication Blood loss Cancer related pain Cornea abrasion History of cigarette smoking Hyperlipidemia Hypertension Hyponatremia Hypotension Liver lesion Metastatic cancer Widespread Stage IV Met Ca likely lung primary, bx needed, 08/19/22 Open tibial fracture Palliative care encounter Pathologic lumbar vertebral fracture Sensorineural hearing loss of both ears Small cell lung cancer SVT (supraventricular tachycardia) Type 2 diabetes mellitus Surgical History History of ankle surgery broken ankle-2014 at [facility] History of appendectomy History of hemicolectomy January 2016--[facility] History of tonsillectomy History of tubal ligation Port-A-Cath in place (08/24/22) Aport Placement(Left) - Edwin Roa DO, PEEWEE Family History Sister Primary adenocarcinoma of vagina Father Asthma Hypertension Macular degeneration Pulmonary embolism Mother Emphysema lung Brother Macular degeneration Denies family history of Ovarian cancer Prostate cancer Myocardial infarction Breast cancer Colorectal cancer Social History Smoking Status: Former smoker Tobacco Type: Cigarettes packs per day: 2; Second Hand Exposure: No; Hx Alcohol Use: No Hx Substance Use: No Preferred Language: Macedonian Communication Ability: Effective Visual Impairment: No Limitations Hearing Ability: Normal Motor Bus Driver Required: No Beliefs That Will Affect Care: None marital status: Current Living Situation: Spouse current occupational status: retired How many Children do You have: 2 Feels Safe at Home: Yes Childhood Exposure to Second-Hand Smoke: Yes caffeine: Yes (coffee 4 cups a day ) Dental Care, Regularly: Yes Physical Activity Frequency: Daily Physical Activity Frequency Comment: bicycle Seatbelt Use: always Sunscreen Use: Yes Assistive Devices: Cane, Walker and Wheelchair Allergies Allergies Allergy/AdvReac Type Severity Reaction Status Date / Time No Known Allergies Allergy Verified 10/27/22 23:46 Home Meds Home Medications Medication Instructions Recorded Confirmed furosemide 20 mg tablet (Lasix) 10 mg PO QAM 09/27/22 11/22/22 lorazepam 0.5 mg tablet (Ativan) 0.5 mg PO Q6 PRN Anxiety 09/27/22 11/22/22 calcium carbonate 200 mg calcium 1,000 mg PO Q6H PRN Gi Upset 10/27/22 11/22/22 (500 mg) chewable tablet (Calcium Antacid) fentanyl 12 mcg/hr transdermal 1 patch topical Q72H 10/27/22 11/22/22 patch fentanyl 25 mcg/hr transdermal 1 patch transdermal Q72H 10/27/22 11/22/22 patch ondansetron 4 mg disintegrating 4 mg PO Q6H PRN Nausea 10/28/22 11/22/22 tablet oxycodone 5 mg tablet 5 mg PO Q4H PRN Pain (Scale score 10/28/22 11/22/22 5-10) acetaminophen 325 mg tablet 650 mg PO Q6 PRN Fever 11/22/22 11/22/22 (Tylenol) acetaminophen 325 mg tablet 650 mg PO Q6 PRN pain 1-4 11/22/22 11/22/22 (Tylenol) ascorbic acid (vitamin C) 500 mg 1,000 mg PO DAILY 11/22/22 11/22/22 tablet (Vitamin C) buspirone 5 mg tablet 5 mg PO AMHS 11/22/22 11/22/22 doxycycline hyclate 100 mg tablet 100 mg PO Q12 11/22/22 11/23/22 enoxaparin 30 mg/0.3 mL 30 mg subcut Q12 11/22/22 11/22/22 subcutaneous syringe menthol 0.44 %-zinc oxide 20.6 % 1 applic topical QS 11/22/22 11/22/22 topical ointment (Calmoseptine) mineral oil-isopropyl myristat 1 applic topical BID 11/22/22 11/22/22 lotion mirtazapine 15 mg tablet 15 mg PO HS 11/22/22 11/22/22 ondansetron HCl 4 mg tablet 4 mg PO DAILY 11/22/22 11/22/22 polyethylene glycol 3350 17 17 g PO UD PRN Constipation 11/22/22 11/22/22 gram/dose oral powder (Miralax) polysaccharide iron complex 150 mg 150 mg PO DAILY 11/22/22 11/22/22 iron capsule (Ferrex) sodium chloride 1 gram tablet 1,000 mg PO HS 11/22/22 11/22/22 diclofenac sodium 1 % topical gel 2 g topical BID 11/23/22 11/23/22 Previous Rx's Medication Instructions Recorded omeprazole 20 mg capsule,delayed 20 mg PO QAM #90 caps 10/21/21 release allopurinol 300 mg tablet 300 mg PO HS #30 tabs 08/27/22 amiodarone 200 mg tablet 200 mg PO BID #60 tabs 08/27/22 levalbuterol tartrate 45 2 puff inhalation Q6H PRN 08/28/22 mcg/actuation aerosol inhaler cough/wheeze/shortness of breath (Xopenex HFA) #1 g potassium chloride 10 mEq 10 meq PO BID #30 tabs 10/09/22 tablet,extended release(part/cryst) Results & Data (ED) Vital Signs Vital Signs - 24 hr 11/22/22 21:57 11/22/22 23:08 Temperature 36.9 C Temperature Source Oral Pulse Rate 91 H Respiratory Rate 18 20 Blood Pressure 134/84 Blood Pressure Mean 100 Pulse Oximetry 100 99 Oxygen Delivery Method Room Air Room Air Sepsis Recent Fever Within 48 Hours No Sepsis New/Unexplained Change in Mental Status No Sepsis Action Taken by Nursing No Action Required Home Medications Current Medication List: was personally reviewed by me Laboratory Data Attestation: I reviewed the patient's lab results. 11/22/22 22:30 11/22/22 22:30 Lab Results 11/22/22 11/22/22 11/22/22 Range/Units 22:30 22:30 22:30 WBC 6.44 (4.8-10.8) K/ul RBC 2.70 L (4.20-5.40) M/uL Hgb 8.7 L (12.0-16.0) g/dl Hct 26.1 L (37.0-47.0) % MCV 96.7 (80.0-100.0) fL MCH 32.2 (25.0-34.0) pg MCHC 33.3 (32.0-36.0) g/dL RDW Std Deviation 77.0 H (36.4-46.3) fL RDW Coeff of Charlie 22.1 H (11.5-14.5) % Plt Count 399 (130-400) K/uL MPV 9.1 L (9.4-12.4) fL Immature Gran % (Auto) 1.7 % Neut % (Auto) 53.4 % Lymph % (Auto) 30.1 % Kidder % (Auto) 13.8 % Eos % (Auto) 0.2 % Baso % (Auto) 0.8 % Neut # (Auto) 3.44 (1.40-6.50) K/uL Lymph # (Auto) 1.94 (1.2-3.4) K/uL Kidder # (Auto) 0.89 H (0.11-0.59) K/uL Eos # (Auto) 0.01 (0-0.50) K/uL Baso # (Auto) 0.05 (0-0.2) K/uL Immature Gran # (Auto) 0.11 (0.01-0.20) K/uL Polychromasia 1+ Anisocytosis Present Echinocytes 1+ PT 11.8 (9.0-12.0) Seconds INR 1.1 (0.9-1.1) APTT 36.7 H (21.0-31.0) Seconds PTT Ratio 1.3 Sodium 131 L (136-145) mmol/L Potassium 3.9 (3.5-5.1) mmol/L Chloride 97 L (98-107) mmol/L Carbon Dioxide 27 (21-32) mmol/L Anion Gap 7 (3-11) BUN 20 (6-23) mg/dl Creatinine 0.99 (0.6-1.2) mg/dl Est Cr Clr Drug Dosing 44.3 ml/min Est GFR ( Amer) 62.8 ml/min Est GFR (Non-Af Amer) 54.2 ml/min BUN/Creatinine Ratio 20.2 H (10-20) Glucose 106 H (70-99(Fasting)) mg/dl Calcium 8.4 L (8.5-10.1) mg/dl Total Bilirubin 0.5 (0.2-1.0) mg/dl AST 24 (13-39) U/L ALT 15 (7-52) U/L Alkaline Phosphatase 137 H (34-104) U/L Total Protein 5.4 L (6.0-8.3) gm/dl Albumin 2.7 L (3.4-5.0) gm/dl Globulin 2.7 (2.5-4.0) gm/dl Albumin/Globulin Ratio 1.0 (0.9-2) SARS-CoV-2, RNA, NAAT (NEGATIVE) 11/22/22 Range/Units 23:33 WBC (4.8-10.8) K/ul RBC (4.20-5.40) M/uL Hgb (12.0-16.0) g/dl Hct (37.0-47.0) % MCV (80.0-100.0) fL MCH (25.0-34.0) pg MCHC (32.0-36.0) g/dL RDW Std Deviation (36.4-46.3) fL RDW Coeff of Charlie (11.5-14.5) % Plt Count (130-400) K/uL MPV (9.4-12.4) fL Immature Gran % (Auto) % Neut % (Auto) % Lymph % (Auto) % Kidder % (Auto) % Eos % (Auto) % Baso % (Auto) % Neut # (Auto) (1.40-6.50) K/uL Lymph # (Auto) (1.2-3.4) K/uL Kidder # (Auto) (0.11-0.59) K/uL Eos # (Auto) (0-0.50) K/uL Baso # (Auto) (0-0.2) K/uL Immature Gran # (Auto) (0.01-0.20) K/uL Polychromasia Anisocytosis Echinocytes PT (9.0-12.0) Seconds INR (0.9-1.1) APTT (21.0-31.0) Seconds PTT Ratio Sodium (136-145) mmol/L Potassium (3.5-5.1) mmol/L Chloride (98-107) mmol/L Carbon Dioxide (21-32) mmol/L Anion Gap (3-11) BUN (6-23) mg/dl Creatinine (0.6-1.2) mg/dl Est Cr Clr Drug Dosing ml/min Est GFR ( Amer) ml/min Est GFR (Non-Af Amer) ml/min BUN/Creatinine Ratio (10-20) Glucose (70-99(Fasting)) mg/dl Calcium (8.5-10.1) mg/dl Total Bilirubin (0.2-1.0) mg/dl AST (13-39) U/L ALT (7-52) U/L Alkaline Phosphatase (34-104) U/L Total Protein (6.0-8.3) gm/dl Albumin (3.4-5.0) gm/dl Globulin (2.5-4.0) gm/dl Albumin/Globulin Ratio (0.9-2) SARS-CoV-2, RNA, NAAT NEGATIVE (NEGATIVE) Administered Medications Morphine Sulfate (Morphine Sulfate 2 Mg/Ml Carp) 2 mg IV Q30M PRN PRN Reason: Pain Stop: 12/06/22 22:19 Last Admin: 11/23/22 00:38 Dose: 2 mg Documented By: EMB Discontinued Medications Acetaminophen (Ofirmev) 1,000 mg in 100 mls @ 400 mls/hr IV NOW STA Stop: 11/22/22 22:34 Last Infusion: 11/22/22 23:17 Dose: 0 mls/hr Documented By: Admin: 11/22/22 22:34 Dose: 400 mls/hr Documented By: SARAH Sodium Chloride (Nss 1000ml) 500 mls @ 999 mls/hr IV .Q31M ONE Stop: 11/22/22 23:51 Last Infusion: 11/23/22 00:25 Dose: 0 mls/hr Documented By: Admin: 11/22/22 23:29 Dose: 999 mls/hr Documented By: EMB Morphine Sulfate (Morphine Sulfate 4 Mg/Ml 1 Ml Carp\Vial) 4 mg IV NOW STA Stop: 11/22/22 22:21 Last Admin: 11/22/22 22:34 Dose: 4 mg Documented By: SARAH Ondansetron HCl (Ondansetron Inj 2 Mg/Ml 2 Ml Vial) 4 mg IV NOW STA Stop: 11/22/22 22:21 Last Admin: 11/22/22 22:34 Dose: 4 mg Documented By: EMB Imaging Data Attestation: I personally reviewed and interpreted this imaging study as follows: My Impression: Left hip and pelvis film: Per my review, there is a superior left hip dislocation. No obvious fracture. Discharge Plan Visit Data Chief Complaint: Hip Pain Stated Complaint: Fall ED Provider: Yonatan Najera Discharge Problem: Dislocation, hip closed, Anemia, Fall, S/P hip replacement Patient Disposition: Admitted As Inpatient Condition: Fair Forms Stand Alone Forms: My [facility] Prescriptions Prescriptions: No Action furosemide [Lasix] 20 mg tablet 10 mg PO QAM lorazepam [Ativan] 0.5 mg tablet 0.5 mg PO Q6 PRN (Reason: Anxiety) Rx Instructions: start 11/19/22 for 14 days omeprazole 20 mg capsule,delayed release(DR/EC) 20 mg PO QAM Qty: 90 3RF amiodarone 200 mg Tablet 200 mg PO BID Qty: 60 2RF allopurinol 300 mg Tablet 300 mg PO HS Qty: 30 5RF levalbuterol tartrate [Xopenex HFA] 45 mcg/actuation Hfa Aerosol Inhaler 2 puff inhalation Q6H PRN (Reason: cough/wheeze/shortness of breath) Qty: 1 0RF Rx Instructions: use with spacer device potassium chloride 10 mEq Tablet,Er Particles/Crystals 10 meq PO BID Qty: 30 0RF calcium carbonate [Calcium Antacid] 200 mg calcium (500 mg) Tablet,Chewable 1,000 mg PO Q6H PRN (Reason: Gi Upset) fentanyl 12 mcg/hr Patch 72 Hour 1 patch topical Q72H Rx Instructions: one patch to upper body, along with 25mcg patch, change every three days fentanyl 25 mcg/hr Patch 72 Hour 1 patch TRANSDERMAL Q72H Rx Instructions: apply one patch topically every three days along with 12mcg patch , to upper body ondansetron 4 mg Tablet,Disintegrating 4 mg PO Q6H PRN (Reason: Nausea) oxycodone 5 mg tablet 5 mg PO Q4H PRN (Reason: Pain (Scale score 5-10)) buspirone 5 mg tablet 5 mg PO AMHS enoxaparin 30 mg/0.3 mL syringe 30 mg subcut Q12 polysaccharide iron complex [Ferrex 150] 150 mg iron Capsule 150 mg PO DAILY mirtazapine 15 mg tablet 15 mg PO HS polyethylene glycol 3350 [Miralax] 17 gram/dose Powder 17 g PO UD PRN (Reason: Constipation) Rx Instructions: 17 gm by mouth as needed...mix with 8 oz of fluid of choice ondansetron HCl 4 mg Tablet 4 mg PO DAILY sodium chloride 1 gram tablet 1,000 mg PO HS acetaminophen [Tylenol] 325 mg Tablet 650 mg PO Q6 MDD 3g PRN (Reason: Fever) ascorbic acid (vitamin C) [Vitamin C] 500 mg Tablet 1,000 mg PO DAILY Rx Instructions: take until 11/30/2022 11:59 acetaminophen [Tylenol] 325 mg Tablet 650 mg PO Q6 MDD 3g PRN (Reason: pain 1-4) Eucerin Lotion 1 applic TOPICAL BID Rx Instructions: apply to BLE every day and evening shift for dry skin menthol-zinc oxide [Calmoseptine] 0.44-20.6 % Ointment 1 applic TOPICAL QS Rx Instructions: apply to B/L gluteus doxycycline hyclate 100 mg tablet 100 mg PO Q12 Rx Instructions: start 11/15/22 for 10 days diclofenac sodium 1 % Gel 2 g TOPICAL BID Rx Instructions: apply to bilateral knees and lower back every day and evening shift Referrals Referrals: [facility] [Primary Care Provider] -
[2022-11-22 23:02] LABS: Basophils # (auto) 0.05 K/uL (0-0.2); Basophils % (auto) 0.8 %; Eosinophils # (auto) 0.01 K/uL (0-0.50); Eosinophils % (auto) 0.2 %; Hematocrit (blood only) 26.1 % (37.0-47.0); Hemoglobin 8.7 g/dl (12.0-16.0); Immature Granulocytes # (auto) 0.11 K/uL (0.01-0.20); Immature Granulocytes % (auto) 1.7 %; Lymphocytes # (auto) 1.94 K/uL (1.2-3.4); Lymphocytes % (auto) 30.1 %; Mean Corpuscular Hemoglobin 32.2 pg (25.0-34.0); Mean Corpuscular Hgb Conc 33.3 g/dL (32.0-36.0); Mean Corpuscular Volume 96.7 fL (80.0-100.0); Mean Platelet Volume 9.1 fL (9.4-12.4); Monocytes # (auto) 0.89 K/uL (0.11-0.59); Monocytes % (auto) 13.8 %; Neutrophils # (auto) 3.44 K/uL (1.40-6.50); Neutrophils % (auto) 53.4 %; Platelet Count 399 K/uL (130-400); RDW Coefficient of Variation 22.1 % (11.5-14.5); White Blood Count 6.44 K/ul (4.8-10.8)
[2022-11-22 23:18] LABS: Albumin Level 2.7 gm/dl (3.4-5.0); BUN Creatinine Ratio 20.2 (10-20); Bilirubin,Total 0.5 mg/dl (0.2-1.0); Calcium 8.4 mg/dl (8.5-10.1); Creatinine Clr Calc Pharmacy 44.3 ml/min; Est GFR (African American) 62.8 ml/min; Est GFR (Non-African American) 54.2 ml/min; Globulin 2.7 gm/dl (2.5-4.0); Potassium 3.9 mmol/L (3.5-5.1); Total Protein 5.4 gm/dl (6.0-8.3)
[2022-11-22] MEDS ORDERED: SODIUM CHLORIDE 0.9% 1000ML 500 ML IV ONE (23:21)
[2022-11-22 23:39] LABS: INR 1.1 (0.9-1.1); Partial Thromboplastin Ratio 1.3; Partial Thromboplastin Time 36.7 Seconds (21.0-31.0); Prothrombin Time 11.8 Seconds (9.0-12.0)
[2022-11-22 23:53] LABS: Anisocytosis Present; Echinocytes 1+; Polychromasia 1+
--- NOTE | 2022-11-23 00:49 | History & Physical Report ---
Date of Service November 23, 2022 Assessment & Plan (1) Hip dislocation, left: Plan: 68-year-old female with history of left hemiarthroplasty performed on 10/29/2021 presenting with dislocation [facility] Patient is in significant pain. X-ray suggestive of superior dislocation of the left hip arthroplasty. No obvious fracture. CT has been performed and read is pending. Admit to medical Neurovascular checks every 4 hours Continue pain control with morphine as needed, rescue Narcan available Bowel regimen scheduled and as needed Zofran as needed for nausea Orthopedic consultation appreciated We will keep patient n.p.o. for possible or in the morning (2) Hyperlipidemia: Plan: Chronic. Stable. Continue atorvastatin (3) Type 2 diabetes mellitus: Plan: Diet controlled. Last hemoglobin A1c = 6.9 on 10/01/2022. Glucose = 106 Continue to monitor (4) Small cell lung cancer: Plan: Patient with small cell lung cancer on chemotherapy. She was to start her third round of chemotherapy tomorrow. She follows with [facility] oncology. Continue home fentanyl patches (5) UTI (urinary tract infection): Plan: Patient recently diagnosed with UTI and was started on doxycycline 100 mg p.o. twice daily. Presently afebrile, hemodynamic stable. Nontoxic in appearance. She denies urinary complaints at this time Boucher catheter ordered in the ER however, due to patient's discomfort and limited mobility at this time, has been unable to place Continue doxycycline 100 mg p.o. twice daily with end date 11/26/2022 External catheter orderedplacement if tolerated F/E/N- LR at 100mL/hr x 2L, electrolytes within normal limits, n.p.o. for now ProphylaxisSCDs to bilateral lower extremities Codeconditional Per discussion with patient Dispoadmit to medical History of Present Illness Chief Complaint: Left hip dislocation Primary Care Provider: [facility] Lore Elizabeth is a 77-year-old female with history of hypertension, hyperlipidemia, small cell lung cancer and diabetes presenting with dislocation of left hip prosthesis. Patient was recently admitted to [facility] from 10/27/2022 - 11/01/2022 with acute left hip pain following a ground-level fall at home. During that admission she was found to have acute displaced left femoral neck fracture. She had a left hip hemiarthroplasty performed by Dr. Flores on 10/29/2022. The surgery went well with no complications identified. Patient was discharged to [facility] and has been doing well since. Today the patient was sitting on the commode and was reaching for some toilet paper when she fell off, landing directly on her left hip. She had instant pain and was unable to bear weight. She came to the ER and was found to have anterior dislocation of the left hip prosthesis noted on x-ray. Patient with significant pain. No additional complaints at this time. She denies syncope, head trauma, loss of consciousness. Denies chest pain, palpitations, cough, shortness of breath. ER course: Morphine 4 mg IV Morphine 2 mg IV Tylenol 1 g IV Zofran 4 mg IV Normal saline 500 mL Allergies Allergy/AdvReac Type Severity Reaction Status Date / Time No Known Allergies Allergy Verified 10/27/22 23:46 Home Medications Medication Instructions Recorded Confirmed Type omeprazole 20 mg capsule,delayed 20 mg PO QAM #90 caps 10/21/21 11/22/22 Rx release allopurinol 300 mg tablet 300 mg PO HS #30 tabs 08/27/22 11/22/22 Rx amiodarone 200 mg tablet 200 mg PO BID #60 tabs 08/27/22 11/22/22 Rx levalbuterol tartrate 45 2 puff inhalation Q6H PRN 08/28/22 11/22/22 Rx mcg/actuation aerosol inhaler cough/wheeze/shortness of breath (Xopenex HFA) #1 g furosemide 20 mg tablet (Lasix) 10 mg PO QAM 09/27/22 11/22/22 History lorazepam 0.5 mg tablet (Ativan) 0.5 mg PO Q6 PRN Anxiety 09/27/22 11/22/22 History potassium chloride 10 mEq 10 meq PO BID #30 tabs 10/09/22 11/22/22 Rx tablet,extended release(part/cryst) calcium carbonate 200 mg calcium 1,000 mg PO Q6H PRN Gi Upset 10/27/22 11/22/22 History (500 mg) chewable tablet (Calcium Antacid) fentanyl 12 mcg/hr transdermal 1 patch topical Q72H 10/27/22 11/22/22 History patch fentanyl 25 mcg/hr transdermal 1 patch transdermal Q72H 10/27/22 11/22/22 History patch ondansetron 4 mg disintegrating 4 mg PO Q6H PRN Nausea 10/28/22 11/22/22 History tablet oxycodone 5 mg tablet 5 mg PO Q4H PRN Pain (Scale score 10/28/22 11/22/22 History 5-10) acetaminophen 325 mg tablet 650 mg PO Q6 PRN Fever 11/22/22 11/22/22 History (Tylenol) acetaminophen 325 mg tablet 650 mg PO Q6 PRN pain 1-4 11/22/22 11/22/22 History (Tylenol) ascorbic acid (vitamin C) 500 mg 1,000 mg PO DAILY 11/22/22 11/22/22 History tablet (Vitamin C) buspirone 5 mg tablet 5 mg PO AMHS 11/22/22 11/22/22 History doxycycline hyclate 100 mg tablet 100 mg PO Q12 11/22/22 11/23/22 History enoxaparin 30 mg/0.3 mL 30 mg subcut Q12 11/22/22 11/22/22 History subcutaneous syringe menthol 0.44 %-zinc oxide 20.6 % 1 applic topical QS 11/22/22 11/22/22 History topical ointment (Calmoseptine) mineral oil-isopropyl myristat 1 applic topical BID 11/22/22 11/22/22 History lotion mirtazapine 15 mg tablet 15 mg PO HS 11/22/22 11/22/22 History ondansetron HCl 4 mg tablet 4 mg PO DAILY 11/22/22 11/22/22 History polyethylene glycol 3350 17 17 g PO UD PRN Constipation 11/22/22 11/22/22 History gram/dose oral powder (Miralax) polysaccharide iron complex 150 mg 150 mg PO DAILY 11/22/22 11/22/22 History iron capsule (Ferrex) sodium chloride 1 gram tablet 1,000 mg PO HS 11/22/22 11/22/22 History diclofenac sodium 1 % topical gel 2 g topical BID 11/23/22 11/23/22 History Past Med/Surg History Medical History Alcohol intoxication Blood loss Cancer related pain Cornea abrasion History of cigarette smoking Hyperlipidemia Hypertension Hyponatremia Hypotension Liver lesion Metastatic cancer Widespread Stage IV Met Ca likely lung primary, bx needed, 08/19/22 Open tibial fracture Palliative care encounter Pathologic lumbar vertebral fracture Sensorineural hearing loss of both ears Small cell lung cancer SVT (supraventricular tachycardia) Type 2 diabetes mellitus Surgical History History of ankle surgery broken ankle-2014 at [facility] [address] History of appendectomy History of hemicolectomy January 2016--[facility] History of tonsillectomy History of tubal ligation Port-A-Cath in place (08/24/22) Aport Placement(Left) - Edwin Roa DO, FACS Family History Sister Primary adenocarcinoma of vagina Father Asthma Hypertension Macular degeneration Pulmonary embolism Mother Emphysema lung Brother Macular degeneration Denies family history of Ovarian cancer Prostate cancer Myocardial infarction Breast cancer Colorectal cancer Social History Smoking Status: Former smoker Tobacco Type: Cigarettes packs per day: 2; Second Hand Exposure: No; Hx Alcohol Use: No Hx Substance Use: No Preferred Language: Turkmen Communication Ability: Effective Visual Impairment: No Limitations Hearing Ability: Normal Diesel Inspector Required: No Beliefs That Will Affect Care: None marital status: Current Living Situation: Spouse current occupational status: retired How many Children do You have: 2 Feels Safe at Home: Yes Childhood Exposure to Second-Hand Smoke: Yes caffeine: Yes (coffee 4 cups a day ) Dental Care, Regularly: Yes Physical Activity Frequency: Daily Physical Activity Frequency Comment: bicycle Seatbelt Use: always Sunscreen Use: Yes Assistive Devices: Cane, Walker and Wheelchair Review of Systems Review of Systems: All systems reviewed & are unremarkable except as noted in HPI & below Physical Exam Physical Exam: General: patient resting comfortably, NAD, non-toxic in appearance, AA&O x 4 Skin: warm, dry, intact, no rashes or lesions, left hip surgical site clean with no bleeding, erythema or dehiscence HEENT: NC/AT, PERRL, EOMI, anicteric sclera, conjunctiva without injection, external ear normal to inspection and nontender, nares patent, moist mucus membranes, dentition intact, no oropharyngeal lesions, neck supple, trachea midline, no LAD, no thyromegaly, no JVD Heart: +S1/S2, regular, no m/r/g Lungs: equal air entry bilaterally, no rales/rhonchi/wheezes Abd: +BS, soft, NT/ND, no masses/organomegaly/ascites Ext: Left lower extremity shortened and internally rotated, extremities warm, well-perfused, 2+ pulses, sensation and mobility intact Neuro: nonfocal, patient AA&O x 4, speech intact, no facial droop, moving all extremities on command with equal strength 5/5 Results & Data Results & Data ([facility]) Vital Signs (Past 12 Hours) Vital Signs Temp Pulse Resp BP Pulse Ox O2 Del Method 11/22/22 23:08 20 99 Room Air 11/22/22 21:57 36.9 C 91 H 18 134/84 100 Room Air Laboratory Results Laboratory Results WBC 6.44 K/ul (4.8-10.8) 11/22/22 22:30 RBC 2.70 M/uL (4.20-5.40) L 11/22/22 22:30 Hgb 8.7 g/dl (12.0-16.0) L 11/22/22 22:30 Hct 26.1 % (37.0-47.0) L 11/22/22 22:30 MCV 96.7 fL (80.0-100.0) 11/22/22 22:30 MCH 32.2 pg (25.0-34.0) 11/22/22 22:30 MCHC 33.3 g/dL (32.0-36.0) 11/22/22 22:30 RDW Std Deviation 77.0 fL (36.4-46.3) H 11/22/22 22:30 RDW Coeff of Charlie 22.1 % (11.5-14.5) H 11/22/22 22:30 Plt Count 399 K/uL (130-400) 11/22/22 22:30 MPV 9.1 fL (9.4-12.4) L 11/22/22 22:30 Immature Gran % (Auto) 1.7 % 11/22/22 22:30 Neut % (Auto) 53.4 % 11/22/22 22:30 Lymph % (Auto) 30.1 % 11/22/22 22:30 [place] % (Auto) 13.8 % 11/22/22 22:30 Eos % (Auto) 0.2 % 11/22/22 22:30 Baso % (Auto) 0.8 % 11/22/22 22:30 Neut # (Auto) 3.44 K/uL (1.40-6.50) 11/22/22 22:30 Lymph # (Auto) 1.94 K/uL (1.2-3.4) 11/22/22 22:30 [place] # (Auto) 0.89 K/uL (0.11-0.59) H 11/22/22 22:30 Eos # (Auto) 0.01 K/uL (0-0.50) 11/22/22 22:30 Baso # (Auto) 0.05 K/uL (0-0.2) 11/22/22 22: Immature Gran # (Auto) 0.11 K/uL (0.01-0.20) 11/22/22 22:30 Polychromasia 1+ 11/22/22 22:30 Anisocytosis Present 11/22/22: Echinocytes 1+ 11/22/22 22:30 PT 11.8 Seconds (9.0-12.0) 11/22/22 22: INR 1.1 (0.9-1.1) 11/22/22: APTT 36.7 Seconds (21.0-31.0) H 11/22/22 22:30 PTT Ratio 1.3 11/22/22 22:30 Sodium 131 mmol/L (136-145) L 11/22/22 22: Potassium 3.9 mmol/L (3.5-5.1) 11/22/22 22: Chloride 97 mmol/L (98-107) L 11/22/22 22: Carbon Dioxide 27 mmol/L (21-32) 11/22/22 22:30 Anion Gap 7 (3-11) 11/22/22 22: BUN 20 mg/dl (6-23) 11/22/22 22:30 Creatinine 0.99 mg/dl (0.6-1.2) 11/22/22 22:30 Est Cr Clr Drug Dosing 44.3 ml/min 11/22/22 22:30 Est GFR ( Amer) 62.8 ml/min 02/06/23 22:30 Est GFR (Non-Af Amer) 54.2 ml/min 11/22/22 22:30 BUN/Creatinine Ratio 20.2 (10-20) H 11/22/22 22:30 Glucose 106 mg/dl (70-99(Fasting)) H 11/22/22 22:30 Calcium 8.4 mg/dl (8.5-10.1) L 11/22/22 22:30 Total Bilirubin 0.5 mg/dl (0.2-1.0) 11/22/22 22:30 AST 24 U/L (13-39) 11/22/22 22:30 ALT 15 U/L (7-52) 11/22/22 22:30 Alkaline Phosphatase 137 U/L (34-104) H 11/22/22 22:30 Total Protein 5.4 gm/dl (6.0-8.3) L 11/22/22 22:30 Albumin 2.7 gm/dl (3.4-5.0) L 11/22/22 22:30 Globulin 2.7 gm/dl (2.5-4.0) 11/22/22 22:30 Albumin/Globulin Ratio 1.0 (0.9-2) 11/22/22 22:30 SARS-CoV-2, RNA, NAAT NEGATIVE (NEGATIVE) 11/22/22 23:[address] of the left hip performedread pending ECG Additional Comments: EKG with normal sinus 85 bpm, normal axis, MO = 176, QRS = 80, QTc = 490, no acute ischemic changes Code Status & VTE Plan VTE Prophylaxis Plan VTE Prophylaxis will be ordered: Yes PG Care Time/CCT Total # of Minutes Spent Total Time Spent with Patient: Total time spent is greater than 50% in coordination of care (as documented) at patient's floor/unit and/or counseling patient: Coding Level of Care Code 35933 INT INP/OBS CARE 3/75MIN Diagnoses Hip dislocation, left S73.005A Hyperlipidemia E78.5 Type 2 diabetes mellitus E11.9 Small cell lung cancer C34.90 UTI (urinary tract infection) N39.0
[2022-11-23] MEDS ORDERED: MoRPHine SULFATE 4 MG/ML 1 ML CARP\\VIAL IV PRN (01:50)
[2022-11-23] MEDS ORDERED: LEVALBUTEROL TARTRATE 15 GM HFA.AER.AD INH PRN (01:50)
[2022-11-23] MEDS ORDERED: MAGNESIUM HYDROXIDE SUSP 30 ML UDC PO PRN (01:50)
[2022-11-23] MEDS ORDERED: NON-FORMULARY MEDICATION (Doxycycline Hyclate 100 mg tablet) PO SCH ×2 (01:50→09:00)
[2022-11-23] MEDS ORDERED: bisacodyL 5 MG TABEC PO PRN (01:50)
[2022-11-23] MEDS ORDERED: NALOXONE HCL 0.4 MG/1 ML VIAL/CARP IV PRN ×2 (01:50→07:36)
[2022-11-23] MEDS ORDERED: MoRPHine SULFATE 2 MG/ML CARP IV PRN (01:50)
[2022-11-23] MEDS ORDERED: POLYETHYLENE (MIRALAX) 17 GM PACK PO PRN (01:50)
[2022-11-23] MEDS: LACTATED RINGER'S 1,000 ML IV SCH ×2 (02:02→12:15)
[2022-11-23] MEDS: CHECK fentaNYL PATCH PLACEMENT SCH ×8 (02:23→23:06)
[2022-11-23] MEDS: ONDANSETRON INJ 2 MG/ML 2 ML VIAL IV SCH ×4 (02:35→21:27)
--- NOTE | 2022-11-23 06:40 | Orthopedic Consultation ---
Date of Consultation November 23, 2022 Assessment & Plan (1) History of left hip hemiarthroplasty: Patient has been NPO. Discussed closed reduction left hip hemiarthroplasty as well as the risks and benefits. She would like to proceed. The informed consent was signed. She understands that she will continue the TOTAL HIP PRECAUTIONS FOR 8 more weeks. Present on Admission?: Yes History of Present Illness Reason for Consultation: Left hip Hemiarthroplasty dislocation Requesting Physician: Stephanie Flores MD Attending Physician: Alyson Elkins DO History of Present Illness Patient is a 77 yo female who underwent left hip gino arthroplasty for left femoral neck fracture on 10/29/2022. Yesterday she was on the toilet and stood up and reached for toilet paper that had fallen on the floor when she lost her balance and landed on her left hip.She has severe left hip pain. Sedation was not able to be preformed in the ED until 3 am and she was admitted to hospitalist service and put on as my first case in the am. Allergies Allergy/AdvReac Type Severity Reaction Status Date / Time No Known Allergies Allergy Verified 10/27/22 23:46 Home Medications Medication Instructions Recorded Confirmed Type omeprazole 20 mg capsule,delayed 20 mg PO QAM #90 caps 10/21/21 11/22/22 Rx release allopurinol 300 mg tablet 300 mg PO HS #30 tabs 08/27/22 11/22/22 Rx amiodarone 200 mg tablet 200 mg PO BID #60 tabs 08/27/22 11/22/22 Rx levalbuterol tartrate 45 2 puff inhalation Q6H PRN 08/28/22 11/22/22 Rx mcg/actuation aerosol inhaler cough/wheeze/shortness of breath (Xopenex HFA) #1 g furosemide 20 mg tablet (Lasix) 10 mg PO QAM 09/27/22 11/22/22 History lorazepam 0.5 mg tablet (Ativan) 0.5 mg PO Q6 PRN Anxiety 09/27/22 11/22/22 History potassium chloride 10 mEq 10 meq PO BID #30 tabs 10/09/22 11/22/22 Rx tablet,extended release(part/cryst) calcium carbonate 200 mg calcium 1,000 mg PO Q6H PRN Gi Upset 10/27/22 11/22/22 History (500 mg) chewable tablet (Calcium Antacid) fentanyl 12 mcg/hr transdermal 1 patch topical Q72H 10/27/22 11/22/22 History patch fentanyl 25 mcg/hr transdermal 1 patch transdermal Q72H 10/27/22 11/22/22 History patch ondansetron 4 mg disintegrating 4 mg PO Q6H PRN Nausea 10/28/22 11/22/22 History tablet oxycodone 5 mg tablet 5 mg PO Q4H PRN Pain (Scale score 10/28/22 11/22/22 History 5-10) acetaminophen 325 mg tablet 650 mg PO Q6 PRN Fever 11/22/22 11/22/22 History (Tylenol) acetaminophen 325 mg tablet 650 mg PO Q6 PRN pain 1-4 11/22/22 11/22/22 History (Tylenol) ascorbic acid (vitamin C) 500 mg 1,000 mg PO DAILY 11/22/22 11/22/22 History tablet (Vitamin C) buspirone 5 mg tablet 5 mg PO AMHS 11/22/22 11/22/22 History doxycycline hyclate 100 mg tablet 100 mg PO Q12 11/22/22 11/23/22 History enoxaparin 30 mg/0.3 mL 30 mg subcut Q12 11/22/22 11/22/22 History subcutaneous syringe menthol 0.44 %-zinc oxide 20.6 % 1 applic topical QS 11/22/22 11/22/22 History topical ointment (Calmoseptine) mineral oil-isopropyl myristat 1 applic topical BID 11/22/22 11/22/22 History lotion mirtazapine 15 mg tablet 15 mg PO HS 11/22/22 11/22/22 History ondansetron HCl 4 mg tablet 4 mg PO DAILY 11/22/22 11/22/22 History polyethylene glycol 3350 17 17 g PO UD PRN Constipation 11/22/22 11/22/22 History gram/dose oral powder (Miralax) polysaccharide iron complex 150 mg 150 mg PO DAILY 11/22/22 11/22/22 History iron capsule (Ferrex) sodium chloride 1 gram tablet 1,000 mg PO HS 11/22/22 11/22/22 History diclofenac sodium 1 % topical gel 2 g topical BID 11/23/22 11/23/22 History Patient History Medical History Alcohol intoxication Blood loss Cancer related pain Cornea abrasion History of cigarette smoking Hyperlipidemia Hypertension Hyponatremia Hypotension Liver lesion Metastatic cancer Widespread Stage IV Met Ca likely lung primary, bx needed, 08/19/22 Open tibial fracture Palliative care encounter Pathologic lumbar vertebral fracture Sensorineural hearing loss of both ears Small cell lung cancer SVT (supraventricular tachycardia) Type 2 diabetes mellitus Surgical History (Updated 11/23/22 @ 06:53 by Toy Flores MD) History of ankle surgery broken ankle-2014 at [facility] History of appendectomy History of hemicolectomy January 2016--[facility] History of left hip hemiarthroplasty History of tonsillectomy History of tubal ligation Port-A-Cath in place (08/24/22) Aport Placement(Left) - Edwin Roa DO, FACS Family History Sister Primary adenocarcinoma of vagina Father Asthma Hypertension Macular degeneration Pulmonary embolism Mother Emphysema lung Brother Macular degeneration Denies family history of Ovarian cancer Prostate cancer Myocardial infarction Breast cancer Colorectal cancer Social History Smoking Status: Former smoker Tobacco Type: Cigarettes packs per day: 2; Second Hand Exposure: No; Hx Alcohol Use: No Hx Substance Use: No Preferred Language: Divehi Communication Ability: Effective Visual Impairment: No Limitations Hearing Ability: Normal Pressure Vessel Inspector Required: No Beliefs That Will Affect Care: None marital status: Current Living Situation: Spouse Current Living Situation Comment: lives in 2 story home with , was getting rehab [facility] prior current occupational status: retired How many Children do You have: 2 Feels Safe at Home: Yes Childhood Exposure to Second-Hand Smoke: Yes caffeine: Yes (coffee 4 cups a day ) Dental Care, Regularly: Yes Physical Activity Frequency: Daily Physical Activity Frequency Comment: bicycle Seatbelt Use: always Sunscreen Use: Yes Assistive Devices: Cane, Glasses, Walker and Wheelchair Review of Systems Review of Systems: All systems reviewed & are unremarkable except as noted in HPI & below Physical Exam Physical Exam: LLE: Shortened and internally rotated. Neurovascularly intact. Results & Data ([facility]) Vital Signs (Past 12 Hours) Vital Signs Temp Pulse Pulse Pulse Resp BP BP 11/23/22 05:50 36.5 C 81 18 114/71 11/23/22 05:50 11/23/22 01:50 11/23/22 01:51 36.3 C L 79 18 132/76 11/23/22 01:00 80 16 106/60 11/22/22 23:08 20 11/22/22 21:57 36.9 C 91 H 18 134/84 Pulse Ox Pulse Ox O2 Del Method O2 Del Method 11/23/22 05:50 98 Room Air 11/23/22 05:50 96 Room Air 11/23/22 01:50 97 Room Air 11/23/22 01:51 97 Room Air 11/23/22 01:00 97 11/22/22 23:08 99 Room Air 11/22/22 21:57 100 Room Air Laboratory Results Laboratory Results WBC 6.44 K/ul (4.8-10.8) 11/22/22 22:30 RBC 2.70 M/uL (4.20-5.40) L 11/22/22 22:30 Hgb 8.7 g/dl (12.0-16.0) L 11/22/22 22:30 Hct 26.1 % (37.0-47.0) L 11/22/22 22:30 MCV 96.7 fL (80.0-100.0) 11/22/22 22:30 MCH 32.2 pg (25.0-34.0) 11/22/22 22:30 MCHC 33.3 g/dL (32.0-36.0) 11/22/22 22:30 RDW Std Deviation 77.0 fL (36.4-46.3) H 11/22/22 22:30 RDW Coeff of Charlie 22.1 % (11.5-14.5) H 11/22/22 22:30 Plt Count 399 K/uL (130-400) 11/22/22 22:30 MPV 9.1 fL (9.4-12.4) L 11/22/22 22:30 Immature Gran % (Auto) 1.7 % 11/22/22 22:30 Neut % (Auto) 53.4 % 11/22/22 22:30 Lymph % (Auto) 30.1 % 11/22/22 22:30 [place] % (Auto) 13.8 % 11/22/22 22:30 Eos % (Auto) 0.2 % 11/22/22 22:30 Baso % (Auto) 0.8 % 11/22/22 22:30 Neut # (Auto) 3.44 K/uL (1.40-6.50) 11/22/22 22:30 Lymph # (Auto) 1.94 K/uL (1.2-3.4) 11/22/22 22:30 [place] # (Auto) 0.89 K/uL (0.11-0.59) H 11/22/22 22:30 Eos # (Auto) 0.01 K/uL (0-0.50) 11/22/22 22:30 Baso # (Auto) 0.05 K/uL (0-0.2) 11/22/22 22: Immature Gran # (Auto) 0.11 K/uL (0.01-0.20) 11/22/22 22:30 Polychromasia 1+ 11/22/22 22:30 Anisocytosis Present 11/22/22: Echinocytes 1+ 11/22/22 22:30 PT 11.8 Seconds (9.0-12.0) 11/22/22 22: INR 1.1 (0.9-1.1) 11/22/22: APTT 36.7 Seconds (21.0-31.0) H 11/22/22 22: PTT Ratio 1.3 11/22/22 22:30 Sodium 131 mmol/L (136-145) L 11/22/22 22:30 Potassium 3.9 mmol/L (3.5-5.1) 11/22/22 22:30 Chloride 97 mmol/L (98-107) L 11/22/22 22:30 Carbon Dioxide 27 mmol/L (21-32) 11/22/22 22:30 Anion Gap 7 (3-11) 11/22/22 22:30 BUN 20 mg/dl (6-23) 11/22/22 22:30 Creatinine 0.99 mg/dl (0.6-1.2) 11/22/22 22: Est Cr Clr Drug Dosing 44.3 ml/min 11/22/22 22:30 Est GFR ( Amer) 62.8 ml/min 11/22/22 22:30 Est GFR (Non-Af Amer) 54.2 ml/min 11/22/22 22:30 BUN/Creatinine Ratio 20.2 (10-20) H 11/22/22 22:30 Glucose 106 mg/dl (70-99(Fasting)) H 11/22/22 22:30 Calcium 8.4 mg/dl (8.5-10.1) L 11/22/22 22:30 Total Bilirubin 0.5 mg/dl (0.2-1.0) 11/22/22 22:30 AST 24 U/L (13-39) 11/22/22 22:30 ALT 15 U/L (7-52) 11/22/22 22:30 Alkaline Phosphatase 137 U/L (34-104) H 11/22/22 22:30 Total Protein 5.4 gm/dl (6.0-8.3) L 11/22/22 22:30 Albumin 2.7 gm/dl (3.4-5.0) L 11/22/22 22:30 Globulin 2.7 gm/dl (2.5-4.0) 11/22/22 22:30 Albumin/Globulin Ratio 1.0 (0.9-2) 11/22/22 22:30 SARS-CoV-2, RNA, NAAT NEGATIVE (NEGATIVE) 11/22/22 23:33 Blood Type O Positive 11/23/22 02:24 Antibody Screen NEGATIVE 11/23/22 02:24 Diagnostic Findings Left hip radiographs and CT: Show a cemented left hip hemiarthroplasty posteriorly dislocated.
--- NOTE | 2022-11-23 06:53 | Anesthesiology Consultation ---
Date of Service November 23, 2022 Assessment & Plan Chart Review Chart Review: Acceptable Risk for Surgery and Patient NOT seen in Pre Admission Testing Consults Requested none ASA ASA4 Proposed Anesthesia Anesthesia Type: General Risk / Benefits Reviewed With: PT / POA / Parent / Guardian, Accepts Plan and Informed Consent Obtained History Surgery Operation Date: 11/23/22 07:00 Proposed Procedures p Left Hip Closed Reduction - Toy Leonel Flores MD Height/Weight Height: 5 ft 2 in Weight: 76.9 kg Allergies Allergy/AdvReac Type Severity Reaction Status Date / Time No Known Allergies Allergy Verified 10/27/22 23:46 Medications Home Medications Medication Instructions Recorded Confirmed Last Taken omeprazole 20 mg capsule,delayed 20 mg PO QAM #90 caps 10/21/21 11/22/22 11/22/22 release allopurinol 300 mg tablet 300 mg PO HS #30 tabs 08/27/22 11/22/22 11/22/22 20:30 amiodarone 200 mg tablet 200 mg PO BID #60 tabs 08/27/22 11/22/22 11/22/22 16:30 levalbuterol tartrate 45 2 puff inhalation Q6H PRN 08/28/22 11/22/22 Unknown mcg/actuation aerosol inhaler cough/wheeze/shortness of breath (Xopenex HFA) #1 g furosemide 20 mg tablet (Lasix) 10 mg PO QAM 09/27/22 11/22/22 11/22/22 lorazepam 0.5 mg tablet (Ativan) 0.5 mg PO Q6 PRN Anxiety 09/27/22 11/22/22 11/22/22 19:40 potassium chloride 10 mEq 10 meq PO BID #30 tabs 10/09/22 11/22/22 11/22/22 16:30 tablet,extended release(part/cryst) calcium carbonate 200 mg calcium 1,000 mg PO Q6H PRN Gi Upset 10/27/22 11/22/22 Unknown (500 mg) chewable tablet (Calcium Antacid) fentanyl 12 mcg/hr transdermal 1 patch topical Q72H 10/27/22 11/22/22 11/20/22 16:30 patch fentanyl 25 mcg/hr transdermal 1 patch transdermal Q72H 10/27/22 11/22/22 02/02/06 16:30 patch ondansetron 4 mg disintegrating 4 mg PO Q6H PRN Nausea 10/28/22 11/22/2212/09 tablet oxycodone 5 mg tablet 5 mg PO Q4H PRN Pain (Scale score 10/28/22 11/22/22 17:39 5-10) acetaminophen 325 mg tablet 650 mg PO Q6 PRN Fever 11/22/22 11/22/22 Unknown (Tylenol) acetaminophen 325 mg tablet 650 mg PO Q6 PRN pain 1-4 11/22/22 11/22/22 11/22/22 21:28 (Tylenol) ascorbic acid (vitamin C) 500 mg 1,000 mg PO DAILY 11/22/22 11/22/22 11/22/22 12 :00 tablet (Vitamin C) buspirone 5 mg tablet 5 mg PO AMHS 11/22/22 11/22/22 11/22/22 20:30 doxycycline hyclate 100 mg tablet 100 mg PO Q12 11/22/22 11/23/22 11/22/22 20:30 enoxaparin 30 mg/0.3 mL 30 mg subcut Q12 11/22/22 11/22/22 11/22/22 20:30 subcutaneous syringe menthol 0.44 %-zinc oxide 20.6 % 1 applic topical QS 11/22/22 11/22/22 11/22/22 topical ointment (Calmoseptine) day shift mineral oil-isopropyl myristat 1 applic topical BID 11/22/22 11/22/22 11/22/22 lotion day shift mirtazapine 15 mg tablet 15 mg PO HS 11/22/22 11/22/22 11/22/22 20:30 ondansetron HCl 4 mg tablet 4 mg PO DAILY 11/22/22 11/22/22 11/22/22 07:00 polyethylene glycol 3350 17 17 g PO UD PRN Constipation 11/22/22 11/22/22 Unknown gram/dose oral powder (Miralax) polysaccharide iron complex 150 mg 150 mg PO DAILY 11/22/22 11/22/22 11/22/22 12:00 iron capsule (Ferrex) sodium chloride 1 gram tablet 1,000 mg PO HS 11/22/22 11/22/22 11/22/22 20:30 diclofenac sodium 1 % topical gel 2 g topical BID 11/23/22 11/23/22 11/22/22 evening shift Active Medications Generic Name Dose Route Start Last Admin Trade Name Tushar PRN Reason Stop Dose Admin Lactated Ringer's 1,000 mls @ 100 mls/hr 11/23/22 01:50 11/23/22 02:02 Lr IV 11/23/22 21:49 100 mls/hr .Q10H ERNESTO Administration Miscellaneous 1 each 11/23/22 02:15 11/23/22 02:23 Check Fentanyl Patch Placement N/A 12/23/22 02:14 1 each QS ERNESTO Administration Miscellaneous 1 each 11/23/22 02:15 11/23/22 02:27 Check Fentanyl Patch Placement N/A 12/23/22 02:14 1 each QS ERNESTO Administration Ondansetron HCl 4 mg 11/23/22 01:50 11/23/22 02:35 Ondansetron Inj 2 Mg/Ml 2 Ml Vial IV 12/23/22 01:49 4 mg Q6H ERNESTO Administration NPO Date Last Intake of Fluids: 11/22/22 Time Last Intake of Fluids: 23:00 Date Last Intake of Solids: 11/22/22 Time Last Intake of Solids: 18:00 Past Medical History Medical History Alcohol intoxication Blood loss Cancer related pain Cornea abrasion History of cigarette smoking Hyperlipidemia Hypertension Hyponatremia Hypotension Liver lesion Metastatic cancer Widespread Stage IV Met Ca likely lung primary, bx needed, 08/19/22 Open tibial fracture Palliative care encounter Pathologic lumbar vertebral fracture Sensorineural hearing loss of both ears Small cell lung cancer SVT (supraventricular tachycardia) Type 2 diabetes mellitus Exercise / Class Metabolic Activity III < 4 Walking/Shop/Light housework Past Family History Family History Sister Primary adenocarcinoma of vagina Father Asthma Hypertension Macular degeneration Pulmonary embolism Mother Emphysema lung Brother Macular degeneration Denies family history of Ovarian cancer Prostate cancer Myocardial infarction Breast cancer Colorectal cancer Past Surgical History Surgical History History of ankle surgery broken ankle-2014 at [facility] History of appendectomy History of hemicolectomy January 2016--[facility] History of tonsillectomy History of tubal ligation Port-A-Cath in place (08/24/22) Aport Placement(Left) - Edwin Roa, , FACS Past Anesthesia History No Hx of Anesthesia Complications and No Family Hx of Anesthesia Complications History of PONV No Hx of PONV and No Hx of Motion Sickness Social History Smoking Status: Former smoker tobacco type: cigarettes Do You Dip or Chew Tobacco: No Hx Alcohol Use: No Hx Substance Use: No Physical Exam Vital Signs Last Vital Signs Temp 36.5 C 11/23/22 05:50 Pulse 81 11/23/22 05:50 Resp 18 11/23/22 05:50 BP 114/71 11/23/22 05:50 Pulse Ox 96 11/23/22 05:50 O2 Del Method 11/23/22 05:50 Constitutional no acute distress ENMT Mouth: no dentition abnormality Thyromental Distance: < 3.5 Finger Breadths Mallampati Class: II Neck normal visual inspection and trachea midline; neck extension not limited Respiratory + uses accessory muscles Auscultation: + diminished lung sounds, + rhonchi and + wheezes Cardiovascular Rate/Rhythm: regular rate and regular rhythm Heart Sounds: no murmur Vessels: no carotid bruit Chest (Breasts) Chest: + vascular access device or port Musculoskeletal Spine: normal cervical ROM and no pain with cervical ROM Extremities: full ROM of extremities Neurologic moves all extremities Motor/Sensory: no sensory deficit Psychiatric Orientation: alert and oriented x 3 Testing Laboratory Results 11/22/22 22:30 11/22/22 22:30 PT 11.8 Seconds (9.0-12.0) 11/22/22 22:30 INR 1.1 (0.9-1.1) 11/22/22 22:30 APTT 36.7 Seconds (21.0-31.0) H 11/22/22 22:30 Blood Type O Positive 11/23/22 02:24 Antibody Screen NEGATIVE 11/23/22 02:24 Electrocardiogram Date: 11/22/22 Findings: + NSR @ (@ 85 low voltage QRS)
[2022-11-23] MEDS ORDERED: ONDANSETRON INJ 2 MG/ML 2 ML VIAL ONE (06:54)
[2022-11-23] MEDS ORDERED: PROPOFOL IV EMULSION 10 MG/ML 20 ML VIAL IV ONE (06:54)
[2022-11-23] MEDS ORDERED: LIDOCAINE 2% MPF LOCAL 5 ML VIAL INFIL ONE (06:54)
[2022-11-23] MEDS ORDERED: KETAMINE 50 MG/5 ML SYRINGE ONE (06:54)
--- NOTE | 2022-11-23 07:24 | Post Operative Brief Note ---
Immediate Post Op Note v1 Date of Surgery November 23, 2022 Pre & Post Diagnosis Operation Date: 11/23/22 07:00 Pre-Op Diagnosis: Left Hip Dislocation Post-Op Diagnosis: Left Hip Dislocation I identified the patient and participated in the time-out.: Yes Procedure Operation Date: 11/23/22 07:00 Actual Procedures p Left Hip gino-arthroplasty Closed Reduction(Left) - Toy Flores MD Surgeon Toy Flores MD Perioperative Tech C JULIA Sethi (No fellow avail) Estimated Blood Loss 0 Findings Consistent with Post-Op Diagnosis Complications none
--- NOTE | 2022-11-23 07:26 | Operative Report ---
Post Operative Report Pre & Post Diagnosis Operation Date: 11/23/22 07:00 Pre-Op Diagnosis: Left Hip Dislocation Post-Op Diagnosis: Left Hip Dislocation I identified the patient and participated in the time-out.: Yes Procedure Operation Date: 11/23/22 07:00 Actual Procedures p Left Hip gino-arthroplasty Closed Reduction(Left) - Toy Flores MD Surgeon Toy Flores MD Drop Pit Worker Garrick Sethi PA-C (No fellow avail) Estimated Blood Loss 0 Findings See Below Dislocated left hip gino-arthroplasty. Unstable 90 deg flexion, 20 adduction, and 30 deg internal rotation. Specimens n/a Complications none Indications 77 year old female who fell reaching while getting up off toilet for toilet paper on the ground yesterday falling on left hip and sustaining a left hip hemiarthroplasty dislocation. She is 3 weeks from her left hip hemiarthroplasty and had been doing well. She was brought to the ED in pain. Radiographs and CT were obtained. Sedation could not be preformed in the ED until scow derrick operator and she was admitted by the hospitalist services and added on at the beginning of my operative day for a closed reduction by my partner who was china and silverware salesperson. The risks and benefits as well as the alternatives were discussed. She wished to proceed and the informed consent was signed. Description of Procedure The patient was brought to the operating room and placed supine on the OR table. After adequate sedation was obtained a time-out was preformed identifing the correct patient and that the left hip was the correct hip for closed reduction. While stabilizing the pelvis the hip underwent a closed reduction the standard fashion with traction, flexion of the hip and gentle internal rotation until the hip reduced. The leg lengths were out to normal. The hip was brought through ROM as noted above in the findings and the hip was easily reduced again after checking the stability. An abduction pillow was placed. She will be admitted to Med/surg back on the hospitalist service. She is WBAT with a walker. Resume her diet. PT/OT consults will be obtained. D/C planning will aid in placement. Will place in abduction brace. Continue DVT prophylaxis. Continue Total hip precautions for another 8 weeks. I attest to the content of the Intraoperative Record and any orders documented therein. Any exceptions are noted below.
--- NOTE | 2022-11-23 07:31 | CT Scan Report ---
LEFT HIP CT CT DOSE: 203.68 mGy.cm HISTORY: Left hip pain. dislocation, poss subtle fx TECHNIQUE: Multiaxial CT images of the left hip were performed and reformatted in the sagittal and co jes plane without the use of contrast. A dose lowering technique was utilized adhering to the prin ciples of BRI. COMPARISON: Left hip radiograph 11/22/2022. FINDINGS: There is a complete dislocation of the left hip prosthesis from the acetabulum. The femoral prosthesis remains within the acetabular cup which is dislocated both posterior and superior from th e acetabulum. Suboptimal evaluation of the bony structures due to the metallic artifact. However, the re is no acute fracture identified within the visualized pelvic bones are proximal left femur. Large amount of stool within the rectum. IMPRESSION: Posterior/superior dislocation of the total left hip prosthesis with respect to the acetabular fossa. No associated fractures identified. ACT 112: Negative or not required by law. Electronically signed by: Yury David M.D. 11/23/2022 7:30 AM
[2022-11-23] MEDS ORDERED: ONDANSETRON INJ 2 MG/ML 2 ML VIAL IV PRN (07:36)
[2022-11-23] MEDS ORDERED: PROMETHAZINE HCL 12.5 MG in SODIUM CHLORIDE 0.9% 50 ML IV PRN (07:36)
[2022-11-23] MEDS ORDERED: ePHEDrine sulfate 50 MG/ML AMP IV PRN (07:36)
[2022-11-23] MEDS ORDERED: FLUMAZENIL 0.1 MG/1 ML 10 ML VIAL IV PRN (07:36)
[2022-11-23] MEDS ORDERED: ATROPINE SULFATE 0.1 MG/ML 10ML SYR IV PRN (07:36)
[2022-11-23] MEDS: fentaNYL citrate 100 MCG/2 ML VIAL IV PRN ×3 (07:49→08:03)
--- NOTE | 2022-11-23 08:13 | Anesthesiology Progress Note ---
Date of Service November 23, 2022 Anesthesia Post Procedure Vital Signs Vital Signs: Temp Pulse Pulse Pulse Resp BP BP 11/23/22 08:05 36.7 C 79 19 11/23/22 07:55 76 13 97/54 L 11/23/22 07:45 81 19 96/63 L 11/23/22 07:35 78 27 H 110/62 11/23/22 07:27 36.1 C L 79 20 121/69 11/23/22 06:44 36.7 C 82 16 117/67 11/23/22 05:50 36.5 C 81 18 114/71 11/23/22 05:50 11/23/22 01:50 11/23/22 01:51 36.3 C L 79 18 132/76 11/23/22 01:00 80 16 106/60 11/22/22 23:08 20 11/22/22 21:57 36.9 C 91 H 18 134/84 Pulse Ox Pulse Ox O2 Del Method O2 Del Method O2 Flow Rate 11/23/22 08:05 100 Nasal Cannula 3 11/23/22 07:55 100 Nasal Cannula 3 11/23/22 07:45 96 Room Air 11/23/22 07:35 100 Room Air 11/23/22 07:27 99 Room Air 11/23/22 06:44 95 Room Air 11/23/22 05:50 98 Room Air 11/23/22 05:50 96 Room Air 11/23/22 01:50 97 Room Air 11/23/22 01:51 97 Room Air 11/23/22 01:00 97 11/22/22 23:08 99 Room Air 11/22/22 21:57 100 Room Air Pain Intensity Left Hip: Pain Intensity: 10 Back: Pain Intensity: 5 Transfer of Care Handoff Completed per policy Notes Mental Status: alert / awake / arousable Patient Amnestic to Procedure: Yes Nausea / Vomiting: adequately controlled Pain: adequately controlled Airway Patency, RR, SpO2: stable & adequate BP & HR: stable & adequate Hydration State: stable & adequate Anesthetic Complications: no major complications apparent
--- NOTE | 2022-11-23 08:18 | Electrocardiogram Report ---
Test Reason : Blood Pressure : / mmHG Vent. Rate : 085 BPM Atrial Rate : 085 BPM P-R Int : 176 ms QRS Dur : 080 ms QT Int : 412 ms P-R-T Axes : 000 030 039 degrees QTc Int : 490 ms Normal sinus rhythm Low voltage QRS Borderline ECG When compared with ECG of 27-OCT-2022 20:22, No significant change was found Confirmed by Enzo Watson ([id number]) on 11/23/2022 8:18:42 AM Referred By: REFERRED SELF Confirmed By:Enzo Watson
--- NOTE | 2022-11-23 09:28 | XRay Report ---
XR hip LT 2V w pelvis CLINICAL HISTORY: Fall. Left hip pain. COMPARISON STUDY: Left hip 10/29/2022. FINDINGS: Superior/posterior dislocation of the left hip prosthesis. No acute fractures identified. IMPRESSION: Superior/posterior dislocation of the left hip prosthesis. ACT 112: Negative or not required by law. Electronically signed by: Yury David M.D. 11/23/2022 9:27 AM
[2022-11-23] MEDS: AMIODARONE 200 MG TAB PO SCH ×2 (09:41→20:39)
[2022-11-23] MEDS: DICLOFENAC SOD 1% GEL 100 GM TUBE EXT SCH ×2 (09:41→20:40)
[2022-11-23] MEDS: busPIRone 5 MG TAB PO SCH ×2 (09:41→20:40)
[2022-11-23] MEDS: DOXYCYCLINE HYCLATE 100 MG CAP PO SCH ×2 (09:41→20:40)
[2022-11-23] MEDS: FUROSEMIDE 20 MG TAB PO SCH (09:42)
[2022-11-23] MEDS: PANTOprazole 40 MG TAB PO SCH (09:42)
--- NOTE | 2022-11-23 11:00 | Operative Report ---
Post Operative Report Pre & Post Diagnosis Operation Date: 11/23/22 07:00 Pre-Op Diagnosis: Left Hip Dislocation Post-Op Diagnosis: Left Hip Dislocation I identified the patient and participated in the time-out.: Yes Procedure Operation Date: 11/23/22 07:00 Actual Procedures p Left Hip Closed Reduction(Left) - Toy Leonel Flores MD Surgeon Dr. Stephanie Flroes Assistant Property Manager Garrick Sethi PA-C (No fellow avail) Estimated Blood Loss 0 Findings Consistent with Post-Op Diagnosis See operative note Specimens None Drains None Complications none Disposition Accompanied Patient To Recovery: Yes Indications This 77-year-old female presented through the ED with complaints of left hip hemiarthroplasty dislocation. It was unable to be reduced in the ED overnight. She elected to proceed with closed reduction in the OR this morning. Risks and benefits were discussed. Description of Procedure Patient was administered sedation by anesthesia. Patient's hip was flexed and traction applied. Emphatic clunk was felt indicating reduction. Leg lengths were checked and were equal. Patient was taken to the recovery room in satisfactory condition. I attest to the content of the Intraoperative Record and any orders documented therein. Any exceptions are noted below.
--- NOTE | 2022-11-23 11:18 | Fluoroscopy Report ---
INTRAOPERATIVE RADIOGRAPHS CLINICAL HISTORY: Closed reduction of arthroplasty dislocation. Fluoro time: 14 seconds. Exposure: 5.39 mGy FINDINGS: 6 spot fluoroscopic views of the left hip are correlated with radiographs dated 11/22/2022. T here is successful reduction of dislocated left hip arthroplasty with mormon of near-anatomic al ignment. There is no evidence of acute fracture on these fluoroscopic views. IMPRESSION: Intraoperative images from closed reduction of a dislocated left hip arthroplasty. Electronically signed by: Yonatan Cooper M.D. 11/23/2022 11:16 AM
[2022-11-23] MEDS ORDERED: HEPARIN 100 UNIT/ML 5ML FLUSH ONE (11:35)
--- NOTE | 2022-11-23 12:18 | History & Physical Bridge Note ---
Date of Service November 23, 2022 History & Physical Bridge Note I have examined the patient, reviewed the History & Physical and in the interval since the performance of the History & Physical I have noted the following changes of clinical significance: Pt had sedation and closed hip reduction this AM. When I saw her she was feeling uncomfortable from the brace she was in and requesting pain medicine. She denies SOB, CP. Vitals reviewed RRR no mgr CTAB no wcr Left hip in brace, lying flat in bed, NVI to left LE 77 yo female here with dislocation of recently surgerized left hip hemiarthoplasty after fracture. Now s/p closed hip reduction under anesthesia Pain control-add oxyocodne prn to IV morphine advance diet discharge planning-discussed with Gluing Pressman-needs new insurance auth to return for more therapy at [facility] Also reached out to her Oncologist, Dr. Hogan, to let him know she will need to have her planned chemotherapy for today rescheduled.
--- NOTE | 2022-11-23 12:31 | Communication Note ---
Date of Service: November 23, 2022 Noted hematuria in [place]. Pt told RN she has been having hematuria off and on the last few days at the [facility] but didn't tell anyone. Daughter tells me pt has been acting "grouchy" and not herself also the last few days which happens when she has a UTI. Check UA and reflex to Ur cx today and treat accordingly if positive
[2022-11-23] MEDS: HEPARIN 100 UNIT/ML 5ML FLUSH FLUSH PRN ×2 (13:32→13:36)
[2022-11-23] MEDS ORDERED: fentaNYL 25 MCG/HR TDSY TD SCH (16:30)
[2022-11-23] MEDS ORDERED: fentaNYL 12 MCG/HR TDSY TD SCH (16:30)
--- NOTE | 2022-11-23 16:54 | Orthopedic Progress Note ---
Date of Service November 23, 2022 Assessment & Plan (1) History of left hip hemiarthroplasty: Plan: POD #0 s/p Closed reduction Left hip hemiarthroplasty dislocation, doing as well as expected. L hip hemiarthroplasty 10/29/2022. Resume diet. Patient refused hip abduction brace. Will place in knee immobilizer when out of bed. WBAT with walker and immobilizer. OOB to chair. Continue pain control. DVT prophylaxis: TEDs 3 weeks, foot pumps while in hospital, Complete the 6 weeks course of Lovenox (which began 10/29/2022). PT/OT. D/C planning. Continue care per primary service. Admission and Anticipated Discharge Date Admission Date: November 23, 2022 Physical Exam Physical Exam: LLE: Normal aligned limb. Calf soft and non-tender. Incision is healing well, no evidence of infection. Neurovascularly intact. Results & Data ([facility]) Vital Signs (Past 12 Hours) Vital Signs Temp Pulse Pulse Pulse Resp BP BP 11/23/22 12:12 36.4 C L 81 18 99/61 L 11/23/22 10:44 36.3 C L 81 16 107/64 11/23/22 09:50 36.3 C L 80 16 115/67 11/23/22 09:19 36.3 C L 83 16 132/79 11/23/22 08:15 36.7 C 75 18 102/56 L 11/23/22 08:05 36.7 C 79 19 11/23/22 07:55 76 13 97/54 L 11/23/22 07:45 81 19 96/63 L 11/23/22 07:35 78 27 H 110/62 11/23/22 07:27 36.1 C L 79 20 121/69 11/23/22 06:44 36.7 C 82 16 117/67 11/23/22 05:50 36.5 C 81 18 114/71 11/23/22 05:50 Pulse Ox Pulse Ox O2 Del Method O2 Del Method O2 Flow Rate 11/23/22 12:12 97 Room Air 11/23/22 10:44 95 Room Air 11/23/22 09:50 97 Room Air 11/23/22 09:19 92 Room Air 11/23/22 08:15 100 Nasal Cannula 2 11/23/22 08:05 100 Nasal Cannula 3 11/23/22 07:55 100 Nasal Cannula 3 11/23/22 07:45 96 Room Air 11/23/22 07:35 100 Room Air 11/23/22 07:27 99 Room Air 11/23/22 06:44 95 Room Air 11/23/22 05:50 98 Room Air 11/23/22 05:50 96 Room Air Laboratory Results Laboratory Results WBC 6.44 K/ul (4.8-10.8) 11/22/22 22:30 RBC 2.70 M/uL (4.20-5.40) L 11/22/22 22:30 Hgb 8.7 g/dl (12.0-16.0) L 11/22/22 22:30 Hct 26.1 % (37.0-47.0) L 11/22/22 22:30 MCV 96.7 fL (80.0-100.0) 11/22/22 22:30 MCH 32.2 pg (25.0-34.0) 11/22/22 22:30 MCHC 33.3 g/dL (32.0-36.0) 11/22/22 22:30 RDW Std Deviation 77.0 fL (36.4-46.3) H 11/22/22 22:30 RDW Coeff of Charlie 22.1 % (11.5-14.5) H 11/22/22 22:30 Plt Count 399 K/uL (130-400) 11/22/22 22:30 MPV 9.1 fL (9.4-12.4) L 11/22/22 22:30 Immature Gran % (Auto) 1.7 % 11/22/22 22:30 Neut % (Auto) 53.4 % 11/22/22 22:30 Lymph % (Auto) 30.1 % 11/22/22 22:30 Hawkins % (Auto) 13.8 % 11/22/22 22:30 Eos % (Auto) 0.2 % 11/22/22 22:30 Baso % (Auto) 0.8 % 11/22/22 22:30 Neut # (Auto) 3.44 K/uL (1.40-6.50) 11/22/22 22:30 Lymph # (Auto) 1.94 K/uL (1.2-3.4) 11/22/22 22:30 Hawkins # (Auto) 0.89 K/uL (0.11-0.59) H 11/22/22 22:30 Eos # (Auto) 0.01 K/uL (0-0.50) 11/22/22 22:30 Baso # (Auto) 0.05 K/uL (0-0.2) 11/22/22 22:30 Immature Gran # (Auto) 0.11 K/uL (0.01-0.20) 11/22/22 22:30 Polychromasia 1+ 11/22/22 22:30 Anisocytosis Present 11/22/22 22:30 Echinocytes 1+ 11/22/22 22:30 PT 11.8 Seconds (9.0-12.0) 11/22/22 22:30 INR 1.1 (0.9-1.1) 11/22/22 22:30 APTT 36.7 Seconds (21.0-31.0) H 11/22/22 22:30 PTT Ratio 1.3 11/22/22 22:30 Sodium 131 mmol/L (136-145) L 11/22/22 22:30 Potassium 3.9 mmol/L (3.5-5.1) 11/22/22 22:30 Chloride 97 mmol/L (98-107) L 11/22/22 22:30 Carbon Dioxide 27 mmol/L (21-32) 11/22/22 22:30 Anion Gap 7 (3-11) 11/22/22 22:30 BUN 20 mg/dl (6-23) 11/22/22 22:30 Creatinine 0.99 mg/dl (0.6-1.2) 11/22/22 22:30 Est Cr Clr Drug Dosing 44.3 ml/min 11/22/22 22:30 Est GFR ( Amer) 62.8 ml/min 11/22/22 22:30 Est GFR (Non-Af Amer) 54.2 ml/min 11/22/22 22:30 BUN/Creatinine Ratio 20.2 (10-20) H 11/22/22 22:30 Glucose 106 mg/dl (70-99(Fasting)) H 11/22/22 22:30 POC Glucose 77 mg/dl (70-99) 11/23/22 07:45 Calcium 8.4 mg/dl (8.5-10.1) L 11/22/22 22:30 Total Bilirubin 0.5 mg/dl (0.2-1.0) 11/22/22 22:30 AST 24 U/L (13-39) 11/22/22 22:30 ALT 15 U/L (7-52) 11/22/22 22:30 Alkaline Phosphatase 137 U/L (34-104) H 11/22/22 22:30 Total Protein 5.4 gm/dl (6.0-8.3) L 11/22/22 22:30 Albumin 2.7 gm/dl (3.4-5.0) L 11/22/22 22:30 Globulin 2.7 gm/dl (2.5-4.0) 11/22/22 22:30 Albumin/Globulin Ratio 1.0 (0.9-2) 11/22/22 22:30 SARS-CoV-2, RNA, NAAT NEGATIVE (NEGATIVE) 11/22/22 23:33 Blood Type O Positive 11/23/22 02:24 Antibody Screen NEGATIVE 11/23/22 02:24 Impressions Hip/Pelvis X-Ray 11/22/22 22:20 XR hip LT 2V w pelvis CLINICAL HISTORY: Fall. Left hip pain. COMPARISON STUDY: Left hip 10/29/2022. FINDINGS: Superior/posterior dislocation of the left hip prosthesis. No acute fractures identified. IMPRESSION: Superior/posterior dislocation of the left hip prosthesis. ACT 112: Negative or not required by law. Electronically signed by: Yury David M.D. 11/23/2022 9:[address] 11/22/22 23:[address] DOSE: 203.68 mGy.cm HISTORY: Left hip pain. dislocation, poss subtle fx TECHNIQUE: Multiaxial CT images of the left hip were performed and reformatted in the sagittal and coronal plane without the use of contrast. A dose lowering technique was utilized adhering to the principles of ALARA. COMPARISON: Left hip radiograph 11/22/2022. FINDINGS: There is a complete dislocation of the left hip prosthesis from the acetabulum. The femoral prosthesis remains within the acetabular cup which is dislocated both posterior and superior from the acetabulum. Suboptimal evaluation of the bony structures due to the metallic artifact. However, there is no acute fracture identified within the visualized pelvic bones are proximal left femur. Large amount of stool within the rectum. IMPRESSION: Posterior/superior dislocation of the total left hip prosthesis with respect to the acetabular fossa. No associated fractures identified. ACT 112: Negative or not required by law. Electronically signed by: Yury David M.D. 11/23/2022 7:30 AM Hip X-Ray 11/23/22 07:00 INTRAOPERATIVE RADIOGRAPHS CLINICAL HISTORY: Closed reduction of arthroplasty dislocation. Fluoro time: 14 seconds. Exposure: 5.39 mGy FINDINGS: 6 spot fluoroscopic views of the left hip are correlated with radiographs dated 11/22/2022. There is successful reduction of dislocated left hip arthroplasty with advent of near-anatomic alignment. There is no evidence of acute fracture on these fluoroscopic views. IMPRESSION: Intraoperative images from closed reduction of a dislocated left hip arthroplasty. Electronically signed by: Yonatan Cooper M.D. 11/23/2022 11:16 AM
[2022-11-23 20:04] LABS: Appearance Urine Cloudy (Clear); Bacteria Urine Automated Negative (Negative); Bilirubin Urine Negative (Negative); Blood Urine 3+ (Negative); Color Urine Yellow; Epithelial Cell Urine Auto 0-5 /lpf (0-5); Glucose Urine UA Negative (Negative); Ketones Urine Negative (Negative); Leukocyte Esterase Urine 2+ (Negative); Nitrite Urine Negative (Negative); Protein Urine 1+ (Negative); RBC Urine Automated >30 /hpf (0-4); Specific Gravity Urine 1.011 (1.000-1.030); Urobilinogen Urine Negative (Negative); WBC Urine Automated >30 /hpf (0-5)
[2022-11-23] MEDS: MIRTAZAPINE TAB 15 MG TAB PO SCH (20:39)
[2022-11-23] MEDS: allopurinoL 300 MG TAB PO SCH (20:40)
[2022-11-23] MEDS: DOCUSATE SODIUM/SENNA 50/8.6MG TAB PO SCH (20:40)
[2022-11-23] MEDS: oxyCODONE HCL IR 5 MG TAB (IMMEDIATE RELEASE) PO PRN (21:27)
[2022-11-23] MEDS: LORazepam 0.5 MG TAB PO PRN (23:06)
[2022-11-24] MEDS: ONDANSETRON INJ 2 MG/ML 2 ML VIAL IV SCH ×4 (01:44→20:26)
[2022-11-24 06:19] LABS: Hematocrit (blood only) 23.9 % (37.0-47.0); Hemoglobin 7.8 g/dl (12.0-16.0); Mean Corpuscular Hemoglobin 31.7 pg (25.0-34.0); Mean Corpuscular Hgb Conc 32.6 g/dL (32.0-36.0); Mean Corpuscular Volume 97.2 fL (80.0-100.0); Mean Platelet Volume 9.1 fL (9.4-12.4); Platelet Count 343 K/uL (130-400); RDW Coefficient of Variation 22.2 % (11.5-14.5); RDW Standard Deviation 78.2 fL (36.4-46.3); Red Blood Count 2.46 M/uL (4.20-5.40); White Blood Count 6.32 K/ul (4.8-10.8)
[2022-11-24 06:36] LABS: BUN Creatinine Ratio 19.6 (10-20); Calcium 8.2 mg/dl (8.5-10.1); Creatinine Clr Calc Pharmacy 47.6 ml/min; Est GFR (African American) 68.6 ml/min; Est GFR (Non-African American) 59.2 ml/min; Potassium 3.9 mmol/L (3.5-5.1)
[2022-11-24] MEDS: CHECK fentaNYL PATCH PLACEMENT SCH ×6 (10:05→23:15)
[2022-11-24] MEDS: AMIODARONE 200 MG TAB PO SCH ×2 (10:07→20:25)
[2022-11-24] MEDS: busPIRone 5 MG TAB PO SCH ×2 (10:07→20:25)
[2022-11-24] MEDS: FUROSEMIDE 20 MG TAB PO SCH (10:08)
[2022-11-24] MEDS: DOXYCYCLINE HYCLATE 100 MG CAP PO SCH (10:08)
[2022-11-24] MEDS: DICLOFENAC SOD 1% GEL 100 GM TUBE EXT SCH ×3 (10:08→20:30)
[2022-11-24] MEDS: PANTOprazole 40 MG TAB PO SCH (10:09)
[2022-11-24] MEDS: LORazepam 0.5 MG TAB PO PRN ×2 (10:13→23:14)
--- NOTE | 2022-11-24 10:51 | Orthopedic Progress Note ---
Date of Service November 24, 2022 Assessment & Plan (1) History of left hip hemiarthroplasty: Plan: POD #1 s/p Closed reduction Left hip hemiarthroplasty dislocation, doing as well as expected. L hip hemiarthroplasty 10/29/2022. Resume diet. Patient refused hip abduction brace. Will place in knee immobilizer when out of bed. Orders written. Abduction pillow between knees when in bed and when sitting in a chair. WBAT with walker and immobilizer. OOB to chair. Continue pain control. DVT prophylaxis: TEDs 3 weeks, foot pumps while in hospital, Complete the 6 weeks course of Lovenox (which began 10/29/2022). PT/OT. D/C planning. Ok for discharge to [facility] today from ortho standpoint. Will re-eval in approximately 3 weeks. Continue care per primary service. Admission and Anticipated Discharge Date Admission Date: November 23, 2022 Supervising Physician Co-Signing Physician Notes I, Dr. Flores, saw and examined the patient and discussed the management with my PA. I reviewed my PAs note and agree with the documented findings and the plan of care I developed. Subjective Patient resting in bed, doing well. No complaints of pain in left hip. She has the hip abduction brace on And refuses to leave the hospital with it on. She apparently is going to sign her care today. She states that she would rather have the abduction pillow and knee immobilizer that was discussed yesterday. Physical Exam Musculoskeletal: Left hip abduction brace is in place. Nontender to palpation of her left knee. Incision of her left hip is healed. Mild distal edema bila terally at sock line. Dorsalis pedis and posterior tibial pulses are 1+. Normal strength bilateral lower extremities. Leg lengths are equal. Tolerates logrolling of her left hip. Normal sensation throughout her left foot. No evidence of foot drop. Strength with dorsiflexion of the ankle and great toe are 5/5. On the right foot she does have 2 superficial abrasions 1 over the IP joint of the great toe and one over the MTP joint of the great toe. They are healing nicely. No surrounding erythema. No drainage. Results & Data ([facility]) Vital Signs (Past 12 Hours) Vital Signs Temp Pulse Resp BP BP Pulse Ox O2 Del Method 11/24/22 07:42 36.4 C L 82 16 103/64 97 Room Air 11/24/22 03:39 36.3 C L 76 16 103/63 96 Room Air Laboratory Results 11/24/22 11/24/22 11/24/22 Range/Units 05:46 05:46 02:45 WBC 6.32 (4.8-10.8) K/ul RBC 2.46 L (4.20-5.40) M/uL Hgb 7.8 L (12.0-16.0) g/dl Hct 23.9 L (37.0-47.0) % MCV 97.2 (80.0-100.0) fL MCH 31.7 (25.0-34.0) pg MCHC 32.6 (32.0-36.0) g/dL RDW Std Deviation 78.2 H (36.4-46.3) fL RDW Coeff of Charlie 22.2 H (11.5-14.5) % Plt Count 343 (130-400) K/uL MPV 9.1 L (9.4-12.4) fL Sodium 132 L (136-145) mmol/L Potassium 3.9 (3.5-5.1) mmol/L Chloride 100 (98-107) mmol/L Carbon Dioxide 29 (21-32) mmol/L Anion Gap 3 (3-11) BUN 18 (6-23) mg/dl Creatinine 0.92 (0.6-1.2) mg/dl Est Cr Clr Drug Dosing 47.6 ml/min Est GFR ( Amer) 68.6 ml/min Est GFR (Non-Af Amer) 59.2 ml/min BUN/Creatinine Ratio 19.6 (10-20) Glucose 77 (70-99(Fasting)) mg/dl Calcium 8.2 L (8.5-10.1) mg/dl Urine Color Urine Appearance (Clear) Urine pH (4.5-7.5) Ur Specific Vill[place] (1.000-1.030) Urine Protein (Negative) Urine Glucose (UA) (Negative) Urine Ketones (Negative) Urine Blood (Negative) Urine Nitrite (Negative) Urine Bilirubin (Negative) Urine Urobilinogen (Negative) Ur Leukocyte Esterase (Negative) Urine WBC (Auto) (0-5) /hpf Urine RBC (Auto) (0-4) /hpf U Hyaline Cast (Auto) (0-5) /lpf U Epithel Cells (Auto) (0-5) /lpf Urine Bacteria (Auto) (Negative) Nasal Screen MRSA (PCR) Negative (Negative) 11/23/22 Range/Units 19:27 WBC (4.8-10.8) K/ul RBC (4.20-5.40) M/uL Hgb (12.0-16.0) g/dl Hct (37.0-47.0) % MCV (80.0-100.0) fL MCH (25.0-34.0) pg MCHC (32.0-36.0) g/dL RDW Std Deviation (36.4-46.3) fL RDW Coeff of Charlie (11.5-14.5) % Plt Count (130-400) K/uL MPV (9.4-12.4) fL Sodium (136-145) mmol/L Potassium (3.5-5.1) mmol/L Chloride (98-107) mmol/L Carbon Dioxide (21-32) mmol/L Anion Gap (3-11) BUN (6-23) mg/dl Creatinine (0.6-1.2) mg/dl Est Cr Clr Drug Dosing ml/min Est GFR ( Amer) ml/min Est GFR (Non-Af Amer) ml/min BUN/Creatinine Ratio (10-20) Glucose (70-99(Fasting)) mg/dl Calcium (8.5-10.1) mg/dl Urine Color Yellow Urine Appearance Cloudy A (Clear) Urine pH 7.0 (4.5-7.5) Ur Specific [place] 1.011 (1.000-1.030) Urine Protein 1+ H (Negative) Urine Glucose (UA) Negative (Negative) Urine Ketones Negative (Negative) Urine Blood 3+ H (Negative) Urine Nitrite Negative (Negative) Urine Bilirubin Negative (Negative) Urine Urobilinogen Negative (Negative) Ur Leukocyte Esterase 2+ H (Negative) Urine WBC (Auto) >30 H (0-5) /hpf Urine RBC (Auto) >30 H (0-4) /hpf U Hyaline Cast (Auto) 1-5 (0-5) /lpf U Epithel Cells (Auto) 0-5 (0-5) /lpf Urine Bacteria (Auto) Negative (Negative) Nasal Screen MRSA (PCR) (Negative) Diagnostic Findings INTRAOPERATIVE RADIOGRAPHS CLINICAL HISTORY: Closed reduction of arthroplasty dislocation. Fluoro time: 14 seconds. Exposure: 5.39 mGy FINDINGS: 6 spot fluoroscopic views of the left hip are correlated with radiographs dated 11/22/2022. There is successful reduction of dislocated left hip arthroplasty with rastafari of near-anatomic alignment. There is no evidence of acute fracture on these fluoroscopic views. IMPRESSION: Intraoperative images from closed reduction of a dislocated left hip arthroplasty.
[2022-11-24] MEDS: cefTRIAXone SODIUM 1,000 MG in DEXTROSE 5% AD-VAN 50 ML IV SCH (12:39)
[2022-11-24] MEDS: ENOXAPARIN INJ 40 MG/0.4 ML SYR SQ SCH (12:39)
[2022-11-24] MEDS: ACETAMINOPHEN 325 MG TAB PO PRN (16:26)
--- NOTE | 2022-11-24 17:03 | Hospitalist Progress Note ---
Date of Service November 24, 2022 Assessment & Plan (1) Hip dislocation, left: Plan: 68-year-old female with history of left hemiarthroplasty performed on 10/29/2021 presenting with dislocation following a fall from the commode earlier tonight 11/22/2022. Patient is in significant pain. X-ray suggestive of superior dislocation of the left hip arthroplasty. No obvious fracture. CT hip confirms Now s/p closed reduction under anesthesia on 11/[address] Flores Could not tolerate hip brace so now in LLE knee immobilizer. Must maintain total hip precautions x 8 weeks Abduction pillow between knees when in bed and when sitting in a chair. WBAT with walker and immobilizer. OOB to chair. Continue pain control. DVT prophylaxis: TEDs 3 weeks, foot pumps while in hospital, Complete the 6 weeks course of Lovenox (which began 10/29/2022)---> added Lovenox 40mg SQ once daily today -continue bowel regimen, pain control (2) UTI (urinary tract infection): Plan: Patient recently diagnosed with UTI and was started on doxycycline 100 mg p.o. twice daily as an outpt Continues with hematuria and urinary symptoms on admission Repeat UA abnormal and Ur cx pending Is on chemotherapy for lung CA -start ceftriaxone 1000mg IV daily and wait urine cx (3) Small cell lung cancer: Plan: Patient with small cell lung cancer on chemotherapy. She was to start her third round of chemotherapy on 11/24-postponed and communicated this with her oncologist She [facility]. 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 Last hemoglobin A1c = 6.9 on 10/01/2022. Glucose = 106 Continue to monitor (7) Hyperlipidemia: Plan: Chronic. Stable. Continue atorvastatin (8) Anxiety: Plan: no acute issues continue home buspar, mirtazapine (9) SVT (supraventricular tachycardia): Plan: no acute issues controlled on amiodarone Plan DVT proph-SCDs, FELISHA cruz ordered, added Lovenox back on and needs for 2 more weeks Dispo-did peer to peer with insurance company did-spent 15 min on phone-approved for SNF. Plan for dc to SNF at tomorrow Admission and Anticipated Discharge Date Admission Date: November 23, 2022 Subjective Pt feeling much better today. Removed the hip brace and more comfortable now in the knee immobilizer. Had a large BM today and feels better from that standpoint. Started on abx for UTI and also feeling better from that standpoint. Review of Systems Review of Systems: All systems reviewed & are unremarkable except as noted in HPI & below Physical Exam Constitutional: WD/WN, vitals as above Respiratory: normal respiratory effort, lungs clear to auscultation Cardiovascular: RRR, no murmur, no edema Gastrointestinal (Abdomen): normal bowel sounds, soft, nontender, no hepatosplenomegaly Musculoskeletal: Extremities: + extremities abnormal to inspection (LLE in knee immobilizer) Psychiatric: Orientation: alert, oriented x 3 and cooperative Results & Data Results & Data ([facility]) Vital Signs (Past 12 Hours) Vital Signs Temp Pulse Resp BP Pulse Ox O2 Del Method 11/24/22 16:07 36.6 C 87 16 100/61 95 Room Air 11/24/22 07:42 36.4 C L 82 16 103/64 97 Room Air Laboratory Results CBC, UA, and BMP reviewed PG Care Time/CCT Total # of Minutes Spent Total Time Spent with Patient: Total time spent is greater than 50% in coordination of care (as documented) at patient's floor/unit and/or counseling patient: Coding Level of Care Code 97856 SUB INP/OBS CARE 2/35MIN Diagnoses Hip dislocation, left S73.005A UTI (urinary tract infection) N39.0 Small cell lung cancer C34.90 Anemia D64.9 Anemia type: unspecified type Hyponatremia E87.1 Type 2 diabetes mellitus E11.9 Hyperlipidemia E78.5 Anxiety F41.9 SVT (supraventricular tachycardia) I47.1 (1) Anemia Anemia type: unspecified type Qualified Code(s): D64.9 - Anemia, unspecified
[2022-11-24] MEDS: DOCUSATE SODIUM/SENNA 50/8.6MG TAB PO SCH (20:25)
[2022-11-24] MEDS: allopurinoL 300 MG TAB PO SCH (20:26)
[2022-11-24] MEDS: MIRTAZAPINE TAB 15 MG TAB PO SCH (20:26)
[2022-11-24] MEDS ORDERED: SODIUM CHLORIDE 1 GM TABLET PO SCH (21:00)
[2022-11-25] MEDS: oxyCODONE HCL IR 5 MG TAB (IMMEDIATE RELEASE) PO PRN ×2 (00:28→04:26)
[2022-11-25] MEDS: ONDANSETRON INJ 2 MG/ML 2 ML VIAL IV SCH ×2 (01:27→09:26)
[2022-11-25] MEDS: ACETAMINOPHEN 325 MG TAB PO PRN (03:41)
[2022-11-25] MEDS: LORazepam 0.5 MG TAB PO PRN ×2 (05:06→09:25)
[2022-11-25] MEDS: HEPARIN 100 UNIT/ML 5ML FLUSH FLUSH PRN ×2 (06:10→11:44)
[2022-11-25 06:40] LABS: Basophils # (auto) 0.04 K/uL (0-0.2); Basophils % (auto) 0.8 %; Eosinophils # (auto) 0.01 K/uL (0-0.50); Eosinophils % (auto) 0.2 %; Hematocrit (blood only) 23.4 % (37.0-47.0); Hemoglobin 7.8 g/dl (12.0-16.0); Immature Granulocytes # (auto) 0.13 K/uL (0.01-0.20); Immature Granulocytes % (auto) 2.6 %; Lymphocytes # (auto) 1.63 K/uL (1.2-3.4); Lymphocytes % (auto) 32.8 %; Mean Corpuscular Hemoglobin 32.1 pg (25.0-34.0); Mean Corpuscular Hgb Conc 33.3 g/dL (32.0-36.0); Mean Corpuscular Volume 96.3 fL (80.0-100.0); Mean Platelet Volume 9.3 fL (9.4-12.4); Monocytes # (auto) 0.86 K/uL (0.11-0.59); Monocytes % (auto) 17.3 %; Neutrophils % (auto) 46.3 %; Platelet Count 325 K/uL (130-400); RDW Standard Deviation 72.8 fL (36.4-46.3); Red Blood Count 2.43 M/uL (4.20-5.40); White Blood Count 4.97 K/ul (4.8-10.8)
[2022-11-25 07:12] LABS: Anisocytosis Present; Poikilocytosis Present
[2022-11-25 07:18] LABS: Ferritin 451.8 ng/ml (8-388)
[2022-11-25 08:03] LABS: BUN Creatinine Ratio 24.6 (10-20); Calcium 7.9 mg/dl (8.5-10.1); Creatinine Clr Calc Pharmacy 63.5 ml/min; Est GFR (Non-African American) 82.8 ml/min; Magnesium 1.5 mg/dl (1.7-2.4); Potassium 3.2 mmol/L (3.5-5.1)
[2022-11-25] MEDS: CHECK fentaNYL PATCH PLACEMENT SCH ×2 (09:20)
[2022-11-25] MEDS: AMIODARONE 200 MG TAB PO SCH (09:20)
[2022-11-25] MEDS: FUROSEMIDE 20 MG TAB PO SCH (09:21)
[2022-11-25] MEDS: busPIRone 5 MG TAB PO SCH (09:21)
[2022-11-25] MEDS: DICLOFENAC SOD 1% GEL 100 GM TUBE EXT SCH (09:22)
[2022-11-25] MEDS: ENOXAPARIN INJ 40 MG/0.4 ML SYR SQ SCH (09:26)
[2022-11-25] MEDS: cefTRIAXone SODIUM 1,000 MG in DEXTROSE 5% AD-VAN 50 ML IV SCH (10:01)
[2022-11-25] MEDS ORDERED: MAGNESIUM SULFATE / D5W 1 GM/100 ML BAG IV ONE (10:07)
[2022-11-25] MEDS ORDERED: POTASSIUM CHLORIDE CRTAB 20 MEQ TABCR PO STA (10:07)
[2022-11-25] MEDS: PANTOprazole 40 MG TAB PO SCH (10:33)
--- NOTE | 2022-11-25 11:11 | Orthopedic Progress Note ---
Date of Service November 25, 2022 Assessment & Plan (1) Hip dislocation, left: Plan: Patient was seen in her room this morning. She was educated regarding today's findings. Importance of keeping her knee immobilizer on while standing and ambulating was discussed. Importance of keeping a pillow between her legs when sitting and laying down was also discussed. She is aware. We did discuss the hip abduction brace. She flatly refuses to wear it. Importance of maintaining the total hip precautions was also discussed. Anticipate that she will be transferred to [facility] today for additional penitentiary and rehab. Follow-up in the office in 2 and half weeks for reassessment. H&H appear to be stable. Patient may benefit from additional iron supplementation. Will defer this to the medical team. Continue with ice to the hip as needed for any minor discomfort. Call the office with any other concerns. Admission and Anticipated Discharge Date Admission Date: November 23, 2022 Subjective Patient is seen in her room this morning. She is conversive. She states that she does not like the knee brace, but is willing to wear it. She was able to get up and ambulate to the bathroom today. She currently denies any hip pain. She believes she is going to [facility] later today. Physical Exam Physical Exam: General: Well-developed, well-nourished, elderly female, in no acute distress. Laying in bed. Alert and oriented. Conversive. Skin: Warm and dry with fair turgor. No rashes. No ecchymosis or erythema. No edema. Musculoskeletal: Patient has intact motor function of her left ankle and toes. She has no hip pain with logrolling of the left hip. Her knee immobilizer is in place at this time. She is in bed with a pillow between her legs. Neurologic: Gross sensation is intact across the left foot and ankle by soft touch. Peripheral pulses are 2+. Results & Data ([facility]) Vital Signs (Past 12 Hours) Vital Signs Temp Pulse Resp BP Pulse Ox O2 Del Method 11/25/22 08:03 36.4 C L 77 16 109/68 95 Room Air Laboratory Results CBC obtained today shows a white count of 4.97. H&H of 7.8 and 23.4. This is consistent with her baseline. PRP shows a sodium of 133, potassium 3.2, chloride 100, CO2 27. BUN and creatinine are normal. Magnesium level is slightly low at 1.5. Iron is normal at 36. TIBC is low at 142. Ferritin is high at 451.8.
[2022-11-25] MEDS ORDERED: MAGNESIUM OXIDE 400 MG TAB PO SCH (11:15)
--- NOTE | 2022-11-25 11:25 | Discharge Summary ---
Date of Service November 25, 2022 Admission HPI Per Admitting Provider Lore Elizabeth is a 77-year-old female with history of hypertension, hyperlipidemia, small cell lung cancer and diabetes presenting with dislocation of left hip prosthesis. Patient was recently admitted to [facility] from 10/27/2022 - 11/01/2022 with acute left hip pain following a ground-level fall at home. During that admission she was found to have acute displaced left femoral neck fracture. She had a left hip hemiarthroplasty performed by Dr. Flores on 10/29/2022. The surgery went well with no complications identified. Patient was discharged to [facility] and has been doing well since. Today the patient was sitting on the commode and was reaching for some toilet paper when she fell off, landing directly on her left hip. She had instant pain and was unable to bear weight. She came to the ER and was found to have anterior dislocation of the left hip prosthesis noted on x-ray. Patient with significant pain. No additional complaints at this time. She denies syncope, head trauma, loss of consciousness. Denies chest pain, palpitations, cough, shortness of breath. ER course: Morphine 4 mg IV Morphine 2 mg IV Tylenol 1 g IV Zofran 4 mg IV Normal saline 500 mL Principal Diagnosis Left hip dislocation UTI Anemia Discharge Exam Constitutional WD/WN, vitals as above Respiratory normal respiratory effort, lungs clear to auscultation Cardiovascular RRR, no murmur, no edema Gastrointestinal (Abdomen) normal bowel sounds, soft, nontender, no hepatosplenomegaly Musculoskeletal Extremities: + extremities abnormal to inspection (LLE in knee immobilizer) Psychiatric Orientation: alert, oriented x 3 and cooperative Discharge Data Allergies Allergy/AdvReac Type Severity Reaction Status Date / Time No Known Allergies Allergy Verified 10/27/22 23:46 Consultations 11/22/22 23:35 ED Decision to Admit Stat 11/23/22 01:50 Consult Orthopedic Surgery Routine Procedures Performed Operation Date: 11/23/22 07:00 Actual Procedures p Left Hip Closed Reduction(Left) - Toy Leonel Flores MD Ordered Studies 11/22/22 23:41 CT hip LT wo con Stat 11/23/22 07:00 FL hip LT 2-3V Routine Hospital Course (1) Hip dislocation, left: 68-year-old female with history of left hemiarthroplasty performed on 10/29/2021 presenting with dislocation following a fall from the commode earlier tonight 11/22/2022. Patient is in significant pain. X-ray suggestive of superior dislocation of the left hip arthroplasty. No obvious fracture. CT hip confirms Now s/p closed reduction under anesthesia on 11/[address] Flores Could not tolerate hip brace so now in LLE knee immobilizer. Must maintain total hip precautions x 8 weeks Abduction pillow between knees when in bed and when sitting in a chair. WBAT with walker and immobilizer. Continue pain control with fentanyl patch, oxycodone and tylenol prn DVT prophylaxis: TEDs 3 weeks, foot pumps while in hospital, Complete the 6 weeks course of Lovenox (which began 10/29/2022)---> needs 2 more weeks -continue bowel regimen (2) UTI (urinary tract infection): Patient recently diagnosed with UTI and was started on doxycycline 100 mg p.o. twice daily as an outpt Continued with hematuria and urinary symptoms on admission Repeat UA abnormal and Ur cx final no growth but likely from being on recent doxy--> continue po cefdinir 300mg po bid x 5 days on discharge as symptoms now improved on ceftriaxone (3) Small cell lung cancer: Patient with small cell lung cancer on chemotherapy. She was to start her third round of chemotherapy on 11/24-postponed and communicated this with her oncologist She follows with [facility] oncology. 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 Last hemoglobin A1c = 6.9 on 10/01/2022. Glucose = 106 Continue to monitor (7) Hyperlipidemia: Chronic. Stable. Continue atorvastatin (8) Anxiety: no acute issues but anxious about goigng back to rehab continue home buspar, mirtazapine, prn lorazepam (9) SVT (supraventricular tachycardia): no acute issues controlled on amiodarone Plan DVT proph-SCDs, FELISHA cruz ordered, continue Lovenox for 2 more weeks Dispo-did peer to peer with insurance company did-spent 15 min on phone-approved for SNF. Plan for dc to SNF at today Total Time Total Time Spent Total Time Spent (In Minutes): 35 min Discharge Plan Discharge Items Patient Disposition: Transfer [facility] Reason For Visit: LEFT HIP DISLOCATION Discharge Diagnosis: Left hip s/p hemiarthroplasty dislocation UTI Anemia Condition on Discharge: Fair Activity: Per Instructions section Lifting: Wait until after follow-up appointment Bathing: No limitations Sexual Activity: Wait until after follow-up appointment Exercise/Sports: Wait until after follow-up appointment Driving/Machine Use: No driving Weightbearing: Full weightbearing Weightbearing Comment: Must have knee immobilizer on and use her walker Non-emergency contact: Surgeon Call non-emergency contact if: your symptoms worsen, your pain is worsening, your wound has increased redness and your wound has increased drainage Follow-up/Referrals: Toy Flores MD [Physician] - 12/15/22 2:30 pm [facility] [Primary Care Provider] - Diet: Carb Consistent or DM2 Fluids: 1500ml (6 cups) Addtl Attending Provider Instructions: Please finish out 5 more days of oral antibiotics for your UTI. Please check a CBC, BMP, and Magnesium level in 3 days and replace electrolytes as needed. Potassium and magnesium were slightly low on day of discharge and replaced at that time. You will need to keep your next chemotherapy appointment as scheduled. Addtl Stallion Keeper Provider Instructions: Orthopedic Instructions: Weight-bear as tolerated left lower extremity. Elevate left lower extremity as needed for pain and swelling. Keep heels off of bed. Okay to apply a Neosporin and/or Band-Aids on the right great toe abrasions as needed. May clean with soap and water. Hip abduction pillow between knees when in bed and when sitting in a chair. Use the Knee immobilizer on left leg when ambulating. Total hip precautions left hip at all times. Follow-up with Dr. Flores in approximately 3 weeks as scheduled. Call [phone] with any questions or concerns or to reschedule appointment. Continue Lovenox for DVT prophylaxis. Pending Studies at Discharge: No Stand-Alone Forms: My [facility] Skilled Items Patient informed of condition?: Yes DNR: No Discharge Level of Care: Skilled Communicable Disease: No Discharge Prognosis: Improving Lines: None Urinary Catheter: No Medications and DC Order Prescriptions: New sennosides-docusate sodium [Senokot-S] 8.6-50 mg Tablet 1 tab PO HS Qty: 30 0RF magnesium oxide 400 mg (241.3 mg magnesium) Tablet 400 mg PO QAM Qty: 30 0RF cefdinir 300 mg capsule 300 mg PO BID 5 Days Qty: 10 0RF Continued furosemide [Lasix] 20 mg tablet 10 mg PO QAM omeprazole 20 mg capsule,delayed release(DR/EC) 20 mg PO QAM Qty: 90 3RF amiodarone 200 mg Tablet 200 mg PO BID Qty: 60 2RF allopurinol 300 mg Tablet 300 mg PO HS Qty: 30 5RF levalbuterol tartrate [Xopenex HFA] 45 mcg/actuation Hfa Aerosol Inhaler 2 puff inhalation Q6H PRN (Reason: cough/wheeze/shortness of breath) Qty: 1 0RF Rx Instructions: use with spacer device potassium chloride 10 mEq Tablet,Er Particles/Crystals 10 meq PO BID Qty: 30 0RF calcium carbonate [Calcium Antacid] 200 mg calcium (500 mg) Tablet,Chewable 1,000 mg PO Q6H PRN (Reason: Gi Upset) ondansetron 4 mg Tablet,Disintegrating 4 mg PO Q6H PRN (Reason: Nausea) buspirone 5 mg tablet 5 mg PO AMHS polysaccharide iron complex [Ferrex 150] 150 mg iron Capsule 150 mg PO DAILY mirtazapine 15 mg tablet 15 mg PO HS polyethylene glycol 3350 [Miralax] 17 gram/dose Powder 17 g PO UD PRN (Reason: Constipation) Rx Instructions: 17 gm by mouth as needed...mix with 8 oz of fluid of choice sodium chloride 1 gram tablet 1,000 mg PO HS acetaminophen [Tylenol] 325 mg Tablet 650 mg PO Q6 MDD 3g PRN (Reason: Fever) ascorbic acid (vitamin C) [Vitamin C] 500 mg Tablet 1,000 mg PO DAILY Rx Instructions: take until 11/30/2022 11:59 Eucerin Lotion 1 applic TOPICAL BID Rx Instructions: apply to BLE every day and evening shift for dry skin menthol-zinc oxide [Calmoseptine] 0.44-20.6 % Ointment 1 applic TOPICAL QS Rx Instructions: apply to B/L gluteus diclofenac sodium 1 % Gel 2 g TOPICAL BID Rx Instructions: apply to bilateral knees and lower back every day and evening shift lorazepam [Ativan] 0.5 mg tablet 0.5 mg PO Q6 PRN (Reason: Anxiety) Qty: 10 0RF fentanyl 25 mcg/hr Patch 72 Hour 1 patch TRANSDERMAL Q72H Qty: 5 0RF Rx Instructions: apply one patch topically every three days along with 12mcg patch , to upper body oxycodone 5 mg tablet 5 mg PO Q4H PRN (Reason: Pain (Scale score 5-10)) Qty: 10 0RF fentanyl 12 mcg/hr Patch 72 Hour 1 patch topical Q72H Qty: 5 0RF Rx Instructions: one patch to upper body, along with 25mcg patch, change every three days enoxaparin 30 mg/0.3 mL syringe 30 mg subcut Q12 14 Days Qty: 0 0RF Discontinued ondansetron HCl 4 mg Tablet 4 mg PO DAILY acetaminophen [Tylenol] 325 mg Tablet 650 mg PO Q6 MDD 3g PRN (Reason: pain 1-4) doxycycline hyclate 100 mg tablet 100 mg PO Q12 Rx Instructions: start 11/15/22 for 10 days Discharge Orders: Discharge Order (Routine); Ordered 11/25/22 Ordered By: Jose Sethi Admission Data Admit Date/Time: 11/23/22 00:13 Attending Provider: Lois Enriquez Admit Provider: Alyson Elkins Primary Care Provider: [facility] Other Providers: Alyson Elkins ; Toy Flores ; [facility] Coding Level of Care Code HOSP INP/OBS DISCH >30 MIN Diagnoses Hip dislocation, left S73.005A UTI (urinary tract infection) N39.0 Small cell lung cancer C34.90 Anemia D64.9 Anemia type: unspecified type Hyponatremia E87.1 Type 2 diabetes mellitus E11.9 Hyperlipidemia E78.5 Anxiety F41.9 SVT (supraventricular tachycardia) I47.1
== END 2022-11-25 12:14 ==
LOC: ED 21:49 → INTOOBSV 11-23 00:13 → 3E 11-23 00:13 → SUATTDRO 11-23 00:13 → 3E 11-23 01:45

== ENCOUNTER 2022-12-21 13:27 | Inpatient (IN) ==
[2022-12-21] MEDS ORDERED: SODIUM CHLORIDE 0.9% 500 ML IV SCH (14:15)
[2022-12-21] MEDS ORDERED: ACETAMINOPHEN 1,000 MG/100 ML VIAL IV STA (14:15)
--- NOTE | 2022-12-21 14:30 | Emergency Department Note ---
History of Present Illness General Chief complaint: Back Injury/Pain Time Seen by Provider: 12/21/22 13:36 History of Present Illness Maximum Pain Intensity: 3 77 year old female with PMH significant for metastatic lung CA to spine and pelvis, TIIDM, HTN, HLD, frequent UTIs, s/p recent left hip replacement who presents to ED today accompanied by daughter with c/o increasing weakness, di zziness, frequent falls, and worsening hip/back pain. Daughter states patient recently was discharged from [facility] about 1 week ago following hospitalization after her left hip replacement surgery in October. Patient was doing relatively well initially, however, over the last few days she has become more weak to that point that family and home health nursing is having difficulty transporting her. She has had 3 falls since being home. Daughter states they all have been while someone is trying to assist her while transferring and she essentially "slides" down onto her buttock. Denies head strike or LOC. Patient states she becomes dizzy and that is what causes her to fall. They deny recent fever, chills, cold like symptoms, chest pain, SOB. Patient reports black tarry stools with associated lower abdominal pain for the last 2 days. She also notes urinary frequency and thinks she may have a UTI. Daughter denies changes in mental status. She is currently undergoing chemotherapy. Patient took 5mg oxycodone prior to arrival and received 50mcg Fentanyl via EMS for her pain. Home Medications Medication Instructions Recorded Confirmed Type omeprazole 20 mg capsule,delayed 20 mg PO QAM #90 caps 10/21/21 12/21/22 Rx release allopurinol 300 mg tablet 300 mg PO HS #30 tabs 08/27/22 12/21/22 Rx amiodarone 200 mg tablet 200 mg PO BID #60 tabs 08/27/22 12/21/22 Rx levalbuterol tartrate 45 2 puff inhalation Q6H PRN 08/28/22 12/21/22 Rx mcg/actuation aerosol inhaler cough/wheeze/shortness of breath (Xopenex HFA) #1 g furosemide 20 mg tablet (Lasix) 10 mg PO QAM 09/27/22 12/21/22 History potassium chloride 10 mEq 10 meq PO BID #30 tabs 10/09/22 12/21/22 Rx tablet,extended release(part/cryst) calcium carbonate 200 mg calcium 1,000 mg PO Q6H PRN Gi Upset 10/27/22 12/21/22 History (500 mg) chewable tablet (Calcium Antacid) ondansetron 4 mg disintegrating 4 mg PO Q6H PRN Nausea 10/28/22 12/21/22 History tablet acetaminophen 325 mg tablet 650 mg PO Q6 PRN Fever 11/22/22 12/21/22 History (Tylenol) ascorbic acid (vitamin C) 500 mg 1,000 mg PO DAILY 11/22/22 12/21/22 History tablet (Vitamin C) buspirone 5 mg tablet 5 mg PO BID 11/22/22 12/21/22 History mirtazapine 15 mg tablet 15 mg PO HS 11/22/22 12/21/22 History polyethylene glycol 3350 17 17 g PO DAILY PRN Constipation 11/22/22 12/21/22 History gram/dose oral powder (Miralax) polysaccharide iron complex 150 mg 150 mg PO DAILY 11/22/22 12/21/22 History iron capsule (Ferrex) diclofenac sodium 1 % topical gel 2 g topical BID PRN Pain 11/23/22 12/21/22 History lorazepam 0.5 mg tablet (Ativan) 0.5 mg PO Q6 PRN Anxiety #10 tabs 11/25/22 12/21/22 Rx magnesium oxide 400 mg (241.3 mg 400 mg PO QAM #30 tabs 11/25/22 12/21/22 Rx magnesium) tablet oxycodone 5 mg tablet 5 mg PO Q4H PRN Pain (Scale score 11/25/22 12/21/22 Rx 5-10) #10 tabs sennosides 8.6 mg-docusate sodium 1 tab PO HS #30 tabs 11/25/22 12/21/22 Rx 50 mg tablet (Senokot-S) fentanyl 50 mcg/hr transdermal 50 mcg topical Q72H 12/21/22 12/21/22 History patch metformin 500 mg tablet,extended 500 mg PO BID 12/21/22 12/21/22 History release 24 hr sodium chloride 1,000 mg soluble 1,000 mg PO DAILY 12/21/22 12/21/22 History tablet Allergies Allergy/AdvReac Type Severity Reaction Status Date / Time No Known Allergies Allergy Verified 12/21/22 15:19 Past Med/Surg History Medical History (Updated 12/21/22 @ 18:05 by Kayla Huertas PA-C) Alcohol intoxication Blood loss Cancer related pain Cornea abrasion Dislocation, hip closed History of cigarette smoking Hyperlipidemia Hypertension Hyponatremia Hypotension Liver lesion Metastatic cancer Widespread Stage IV Met Ca likely lung primary, bx needed, 08/19/22 Open tibial fracture Palliative care encounter Pathologic lumbar vertebral fracture Sensorineural hearing loss of both ears Small cell lung cancer SVT (supraventricular tachycardia) Type 2 diabetes mellitus Surgical History (Updated 11/23/22 @ 06:53 by Toy Flores MD) History of ankle surgery broken ankle-2014 at [facility] History of appendectomy History of hemicolectomy January 2016--[facility] History of left hip hemiarthroplasty History of tonsillectomy History of tubal ligation Port-A-Cath in place (08/24/22) Aport Placement(Left) - Edwin Roa DO, FACS Family History Sister Primary adenocarcinoma of vagina Father Asthma Hypertension Macular degeneration Pulmonary embolism Mother Emphysema lung Brother Macular degeneration Denies family history of Ovarian cancer Prostate cancer Myocardial infarction Breast cancer Colorectal cancer Social History Smoking Status: Former smoker Tobacco Type: Cigarettes packs per day: 2; Second Hand Exposure: No; Hx Alcohol Use: No Hx Substance Use: No Preferred Language: Citizen Of [place] Communication Ability: Effective Visual Impairment: No Limitations Hearing Ability: Normal Clinical Registered Nurse Required: No Beliefs That Will Affect Care: None marital status: Current Living Situation: Spouse Current Living Situation Comment: lives in 2 story home with , was getting rehab at [facility] prior current occupational status: retired How many Children do You have: 2 Feels Safe at Home: Yes Childhood Exposure to Second-Hand Smoke: Yes caffeine: Yes (coffee 4 cups a day ) Dental Care, Regularly: Yes Physical Activity Frequency: Daily Physical Activity Frequency Comment: bicycle Seatbelt Use: always Sunscreen Use: Yes Assistive Devices: Cane, Walker and Wheelchair Physical Exam Vital Signs Vital Signs - 24 hr 12/21/22 13:37 12/21/22 13:59 12/21/22 13:43 Temperature 36.8 C Temperature Source Oral Pulse Rate 83 85 85 Pulse Rate from SpO2 Sensor 85 Pulse Rhythm Regular Pulse Strength Normal Respiratory Rate 26 H 20 Respiratory Effort / Characteristics Non-Labored Spontaneous Respiratory Depth Normal Respiratory Pattern Regular Blood Pressure 110/67 Blood Pressure Mean 81 Blood Pressure Position Lying Pulse Oximetry 92 96 Oxygen Delivery Method Room Air Sepsis Recent Fever Within 48 Hours No Sepsis New/Unexplained Change in Mental Status No Sepsis Action Taken by Nursing No Action Required 12/21/22 13:50 12/21/22 14:00 12/21/22 14:10 Temperature Temperature Source Pulse Rate 84 84 82 Pulse Rate from SpO2 Sensor 85 83 82 Pulse Rhythm Pulse Strength Respiratory Rate 23 23 15 Respiratory Effort / Characteristics Respiratory Depth Respiratory Pattern Blood Pressure Blood Pressure Mean Blood Pressure Position Pulse Oximetry 92 96 92 Oxygen Delivery Method Sepsis Recent Fever Within 48 Hours Sepsis New/Unexplained Change in Mental Status Sepsis Action Taken by Nursing 12/21/22 14:20 12/21/22 14:30 12/21/22 14:40 Temperature Temperature Source Pulse Rate 82 82 80 Pulse Rate from SpO2 Sensor 83 83 Pulse Rhythm Pulse Strength Respiratory Rate 30 H 14 14 Respiratory Effort / Characteristics Respiratory Depth Respiratory Pattern Blood Pressure Blood Pressure Mean Blood Pressure Position Pulse Oximetry 92 94 Oxygen Delivery Method Sepsis Recent Fever Within 48 Hours Sepsis New/Unexplained Change in Mental Status Sepsis Action Taken by Nursing 12/21/22 14:50 12/21/22 15:00 12/21/22 15:10 Temperature Temperature Source Pulse Rate 79 79 78 Pulse Rate from SpO2 Sensor 79 79 78 Pulse Rhythm Pulse Strength Respiratory Rate 13 17 15 Respiratory Effort / Characteristics Respiratory Depth Respiratory Pattern Blood Pressure Blood Pressure Mean Blood Pressure Position Pulse Oximetry 92 92 93 Oxygen Delivery Method Sepsis Recent Fever Within 48 Hours Sepsis New/Unexplained Change in Mental Status Sepsis Action Taken by Nursing 12/21/22 15:20 12/21/22 15:30 12/21/22 15:40 Temperature Temperature Source Pulse Rate 79 79 78 Pulse Rate from SpO2 Sensor 79 78 78 Pulse Rhythm Pulse Strength Respiratory Rate 14 22 12 Respiratory Effort / Characteristics Respiratory Depth Respiratory Pattern Blood Pressure Blood Pressure Mean Blood Pressure Position Pulse Oximetry 98 94 94 Oxygen Delivery Method Sepsis Recent Fever Within 48 Hours Sepsis New/Unexplained Change in Mental Status Sepsis Action Taken by Nursing 12/21/22 15:50 12/21/22 17:51 Temperature Temperature Source Pulse Rate 80 79 Pulse Rate from SpO2 Sensor 79 Pulse Rhythm Pulse Strength Respiratory Rate 14 Respiratory Effort / Characteristics Respiratory Depth Respiratory Pattern Blood Pressure 110/67 Blood Pressure Mean 81 Blood Pressure Position Pulse Oximetry 98 Oxygen Delivery Method Sepsis Recent Fever Within 48 Hours Sepsis New/Unexplained Change in Mental Status Sepsis Action Taken by Nursing Constitutional: alert and oriented x3. no acute distress. HEENT: normocephalic, atraumatic. normal conjunctiva.PERRLA. EOM's grossly intact. Respiratory: lungs are clear to auscultation without wheezes, rhonchi, or rales bilaterally. equal chest rise. normal respiratory effort, no accessory muscle use. Cardiovascular: normal heart sounds without murmur. regular rate and rhythm. +1 pitting edema lower extremities GI: abdomen is soft, nondistended. Tenderness bilateral lower quadrants. nl bowel sounds present throughout. No palpable masses. No rebound tenderness or guarding. No CVA tenderness. : Small decubitus pressure ulcer on coccyx without signs of infection. MSK: moves extremities spontaneously without pain Peripheral vascular: extremities warm and well perfused with palpable pulses. Neuro: without focal neuro deficits. answers questions appropriately, follows commands. Speech clear, tongue midline, without facial droop. Psych:appropriate mood and affect. Course Administered Medications Discontinued Medications Sodium Chloride (Nss) 500 mls @ 999 mls/hr IV .Q31M [facility] Stop: 12/21/22 14:45 Last Infusion: 12/21/22 15:42 Dose: 0 mls/hr Documented By: Admin: 12/21/22 14:42 Dose: 999 mls/hr Documented By: JAVIER Acetaminophen (Ofirmev) 1,000 mg in 100 mls @ 400 mls/hr IV NOW STA Stop: 12/21/22 14:29 Last Infusion: 12/21/22 15:03 Dose: 0 mls/hr Documented By: Admin: 12/21/22 14:42 Dose: 400 mls/hr Documented By: JAVIER Ioversol (Optiray 350 100ml) 85 ml IV ONCE ONE Stop: 12/21/22 16:40 Last Admin: 12/21/22 16:40 Dose: 85 ml Documented By: DIONY Morphine Sulfate (Morphine Sulfate 4 Mg/Ml 1 Ml Carp\\Vial) 4 mg IV NOW STA Stop: 12/21/22 17:52 Last Admin: 12/21/22 18:03 Dose: 4 mg Documented By: JAVIER Medical Decision Making Differential Diagnosis Infection, dehydration, metabolic abnormality, hypo/hyperglycemia, electrolyte disturbance, anemia, hypoxia, cardiac sources, intracerebral event, toxicologic, neurologic, as well as other pathologies. Laboratory Data Attestation: I reviewed the patient's lab results. 12/21/22 13:38 12/21/22 13:38 Lab Results 12/21/22 12/21/22 12/21/22 Range/Units 13:38 13:38 13:38 WBC 9.45 (4.8-10.8) K/ul RBC 3.21 L (4.20-5.40) M/uL Hgb 10.5 L (12.0-16.0) g/dl Hct 31.7 L (37.0-47.0) % MCV 98.8 (80.0-100.0) fL MCH 32.7 (25.0-34.0) pg MCHC 33.1 (32.0-36.0) g/dL RDW Std Deviation 60.5 H (36.4-46.3) fL RDW Coeff of Charlie 16.5 H (11.5-14.5) % Plt Count 412 H (130-400) K/uL MPV 9.4 (9.4-12.4) fL Immature Gran % (Auto) 2.0 % Neut % (Auto) 74.5 % Lymph % (Auto) 12.1 % [place] % (Auto) 10.4 % Eos % (Auto) 0.5 % Baso % (Auto) 0.5 % Neut # (Auto) 7.04 H (1.40-6.50) K/uL Lymph # (Auto) 1.14 L (1.2-3.4) K/uL [place] # (Auto) 0.98 H (0.11-0.59) K/uL Eos # (Auto) 0.05 (0-0.50) K/uL Baso # (Auto) 0.05 (0-0.2) K/uL Immature Gran # (Auto) 0.19 (0.01-0.20) K/uL PT 11.0 (9.0-12.0) Seconds INR 1.0 (0.9-1.1) APTT 28.5 (21.0-31.0) Seconds PTT Ratio 1.0 Sodium 130 L (136-145) mmol/L Potassium 4.2 (3.5-5.1) mmol/L Chloride 95 L (98-107) mmol/L Carbon Dioxide 28 (21-32) mmol/L Anion Gap 7 (3-11) BUN 16 (6-23) mg/dl Creatinine 0.86 (0.6-1.2) mg/dl Est Cr Clr Drug Dosing 52.6 ml/min Est GFR ( Amer) 74.5 ml/min Est GFR (Non-Af Amer) 64.3 ml/min BUN/Creatinine Ratio 18.6 (10-20) Glucose 86 (70-99(Fasting)) mg/dl Lactate (0.4-2.0) mmol/L Calcium 9.0 (8.5-10.1) mg/dl Total Bilirubin 0.5 (0.2-1.0) mg/dl AST 49 H (13-39) U/L ALT 27 (7-52) U/L Alkaline Phosphatase 338 H (34-104) U/L Troponin I High Sens 10.8 (0-14) pg/ml Total Protein 5.8 L (6.0-8.3) gm/dl Albumin 3.0 L (3.4-5.0) gm/dl Globulin 2.8 (2.5-4.0) gm/dl Albumin/Globulin Ratio 1.1 (0.9-2) Lipase 32 (11-82) U/L Urine Color Urine Appearance (Clear) Urine pH (4.5-7.5) Ur Specific [place] (1.000-1.030) Urine Protein (Negative) Urine Glucose (UA) (Negative) Urine Ketones (Negative) Urine Blood (Negative) Urine Nitrite (Negative) Urine Bilirubin (Negative) Urine Urobilinogen (Negative) Ur Leukocyte Esterase (Negative) Urine WBC (Auto) (0-5) /hpf Urine RBC (Auto) (0-4) /hpf U Hyaline Cast (Auto) (0-5) /lpf U Epithel Cells (Auto) (0-5) /lpf Urine Bacteria (Auto) (Negative) SARS-CoV-2 (PCR) (Negative) Blood Type Antibody Screen 12/21/22 12/21/22 12/21/22 Range/Units 14:45 15:03 15:04 WBC (4.8-10.8) K/ul RBC (4.20-5.40) M/uL Hgb (12.0-16.0) g/dl Hct (37.0-47.0) % MCV (80.0-100.0) fL MCH (25.0-34.0) pg MCHC (32.0-36.0) g/dL RDW Std Deviation (36.4-46.3) fL RDW Coeff of Charlie (11.5-14.5) % Plt Count (130-400) K/uL MPV (9.4-12.4) fL Immature Gran % (Auto) % Neut % (Auto) % Lymph % (Auto) % [place] % (Auto) % Eos % (Auto) % Baso % (Auto) % Neut # (Auto) (1.40-6.50) K/uL Lymph # (Auto) (1.2-3.4) K/uL [place] # (Auto) (0.11-0.59) K/uL Eos # (Auto) (0-0.50) K/uL Baso # (Auto) (0-0.2) K/uL Immature Gran # (Auto) (0.01-0.20) K/uL PT (9.0-12.0) Seconds INR (0.9-1.1) APTT (21.0-31.0) Seconds PTT Ratio Sodium (136-145) mmol/L Potassium (3.5-5.1) mmol/L Chloride (98-107) mmol/L Carbon Dioxide (21-32) mmol/L Anion Gap (3-11) BUN (6-23) mg/dl Creatinine (0.6-1.2) mg/dl Est Cr Clr Drug Dosing ml/min Est GFR ( Amer) ml/min Est GFR (Non-Af Amer) ml/min BUN/Creatinine Ratio (10-20) Glucose (70-99(Fasting)) mg/dl Lactate 0.9 (0.4-2.0) mmol/L Calcium (8.5-10.1) mg/dl Total Bilirubin (0.2-1.0) mg/dl AST (13-39) U/L ALT (7-52) U/L Alkaline Phosphatase (34-104) U/L Troponin I High Sens (0-14) pg/ml Total Protein (6.0-8.3) gm/dl Albumin (3.4-5.0) gm/dl Globulin (2.5-4.0) gm/dl Albumin/Globulin Ratio (0.9-2) Lipase (11-82) U/L Urine Color Urine Appearance (Clear) Urine pH (4.5-7.5) Ur Specific [place] (1.000-1.030) Urine Protein (Negative) Urine Glucose (UA) (Negative) Urine Ketones (Negative) Urine Blood (Negative) Urine Nitrite (Negative) Urine Bilirubin (Negative) Urine Urobilinogen (Negative) Ur Leukocyte Esterase (Negative) Urine WBC (Auto) (0-5) /hpf Urine RBC (Auto) (0-4) /hpf U Hyaline Cast (Auto) (0-5) /lpf U Epithel Cells (Auto) (0-5) /lpf Urine Bacteria (Auto) (Negative) SARS-CoV-2 (PCR) NEGATIVE (Negative) Blood Type O Positive Antibody Screen NEGATIVE 12/21/22 Range/Units 17:13 WBC (4.8-10.8) K/ul RBC (4.20-5.40) M/uL Hgb (12.0-16.0) g/dl Hct (37.0-47.0) % MCV (80.0-100.0) fL MCH (25.0-34.0) pg MCHC (32.0-36.0) g/dL RDW Std Deviation (36.4-46.3) fL RDW Coeff of Charlie (11.5-14.5) % Plt Count (130-400) K/uL MPV (9.4-12.4) fL Immature Gran % (Auto) % Neut % (Auto) % Lymph % (Auto) % [place] % (Auto) % Eos % (Auto) % Baso % (Auto) % Neut # (Auto) (1.40-6.50) K/uL Lymph # (Auto) (1.2-3.4) K/uL [place] # (Auto) (0.11-0.59) K/uL Eos # (Auto) (0-0.50) K/uL Baso # (Auto) (0-0.2) K/uL Immature Gran # (Auto) (0.01-0.20) K/uL PT (9.0-12.0) Seconds INR (0.9-1.1) APTT (21.0-31.0) Seconds PTT Ratio Sodium (136-145) mmol/L Potassium (3.5-5.1) mmol/L Chloride (98-107) mmol/L Carbon Dioxide (21-32) mmol/L Anion Gap (3-11) BUN (6-23) mg/dl Creatinine (0.6-1.2) mg/dl Est Cr Clr Drug Dosing ml/min Est GFR ( Amer) ml/min Est GFR (Non-Af Amer) ml/min BUN/Creatinine Ratio (10-20) Glucose (70-99(Fasting)) mg/dl Lactate (0.4-2.0) mmol/L Calcium (8.5-10.1) mg/dl Total Bilirubin (0.2-1.0) mg/dl AST (13-39) U/L ALT (7-52) U/L Alkaline Phosphatase (34-104) U/L Troponin I High Sens (0-14) pg/ml Total Protein (6.0-8.3) gm/dl Albumin (3.4-5.0) gm/dl Globulin (2.5-4.0) gm/dl Albumin/Globulin Ratio (0.9-2) Lipase (11-82) U/L Urine Color Yellow Urine Appearance Clear (Clear) Urine pH 6.5 (4.5-7.5) Ur Specific [place] 1.013 (1.000-1.030) Urine Protein 1+ H (Negative) Urine Glucose (UA) Negative (Negative) Urine Ketones Trace H (Negative) Urine Blood Trace H (Negative) Urine Nitrite Negative (Negative) Urine Bilirubin Negative (Negative) Urine Urobilinogen Negative (Negative) Ur Leukocyte Esterase Trace H (Negative) Urine WBC (Auto) >30 H (0-5) /hpf Urine RBC (Auto) 5-10 H (0-4) /hpf U Hyaline Cast (Auto) 0 (0-5) /lpf U Epithel Cells (Auto) 20-30 H (0-5) /lpf Urine Bacteria (Auto) Negative (Negative) SARS-CoV-2 (PCR) (Negative) Blood Type Antibody Screen Imaging Data My Impression: CXR without acute pathology, no pneumonia, pleural effusion or pneumothorax. Hip/Pelvis xray --without acute fracture or dislocation. Hip arthroplasty in anatomic location Radiologist's Impression: Chest X-Ray 12/21/22 14:05 SINGLE VIEW CHEST CLINICAL HISTORY: Generalized weakness. FINDINGS: 2 AP, portable, semierect chest radiographs are compared to study dated 10/27/2022 and correlated with chest CT dated 10/08/2022. The examination is degraded by portable technique and patient rotation. A left internal jugular central venous infusion port is unchanged in position. The heart is enlarged. The pulmonary vasculature is noncongested. The mitral annulus is densely calcified. Emphysema and chronic interstitial thickening is similar to previous. A right upper lobe mass lesion is likely unchanged. There is complete atelectasis of the right upper lobe which is new from previous. No large pleural effusion or pneumothorax is identified. The skeletal structures are osteopenic. The bony thorax is grossly intact. IMPRESSION: 1. Cardiomegaly and emphysema. 2. There is complete atelectasis of the right upper lobe which is new from previous. 3. A right upper lobe mass lesion is likely unchanged. This is not well assessed due to right upper lobe atelectasis. 4. Additional findings as above. ACT 112: Negative or not required by law. Electronically signed by: Yonatan Cooper M.D. 12/21/2022 5:19 PM Hip/Pelvis X-Ray 12/21/22 14:10 SINGLE VIEW PELVIS STUDY: 2 VIEWS LEFT HIP CLINICAL HISTORY: Fall. Pain. FINDINGS: An AP, portable, supine view of the pelvis with AP and frog-leg views of the left hip are compared to study dated 12/15/2022 and correlated with pelvic CT performed the same day 12/21/2022. The skeletal structures are heterogeneously osteopenic. A left hip arthroplasty is in near anatomic alignment. There is a nondisplaced fracture of the left inferior pubic ring, as well as a nondisplaced fracture of the left sacral ala. These were better seen on today's CT scan. No additional acute fracture is identified. Moderate arthritic change is seen in the right hip. Degenerative sclerosis is noted in the sacroiliac joints. E nthesophytes arise from the anterior superior iliac spines. A large calcified fibroid is noted in the pelvis. Excreted IV contrast is present within the ureters. IMPRESSION: 1. Nondisplaced fracture of the left sacral ala. 2. Nondisplaced fracture of the left inferior pubic ring. 3. A left hip arthroplasty is in near anatomic alignment. Electronically signed by: Yonatan Cooper M.D. 12/21/2022 5:27 PM Abdomen/Pelvis CT 12/21/22 14:11 CT abd pelvis IV con only CLINICAL HISTORY: lower abd pain TECHNIQUE: Helical axial images of the abdomen and pelvis were obtained and displayed. Automated dose lowering techniques and/or adjustment according to patient size were utilized for this exam. This exam was performed with intravenous contrast. CT DOSE: 398.37 mGy.cm COMPARISON: Comparison is made to CT abdomen pelvis 11/01/2022 FINDINGS: Lower chest: Diffuse interstitial lung disease is seen. Mitral annular calcifications are noted. Liver: Numerous hepatic masses are seen. The index lesion in the dome of the right liver measures 72 mm, increased from prior exam where it measured 58 mm. Remaining lesions also appear increased in size. Gallbladder and biliary tree: Cholelithiasis is seen without evidence of cholecystitis. No intra- or extrahepatic biliary ductal dilation. Pancreas: Unremarkable, no focal lesions. Spleen: Subcentimeter hypodensities are seen in the spleen. Adrenals: Adrenal gland thickening is again seen. Kidneys and ureters: Mild pelviectasis is seen without evidence of obstruction. Bladder: Unremarkable. Reproductive organs: Calcified fibroid is noted. Bowel: Diverticulosis is seen without evidence of diverticulitis. Prominent stool ball is seen without evidence of wall thickening. Lymph nodes Retroperitoneal: Unremarkable. Pelvic: Unremarkable. Mesenteric: Unremarkable. Peritoneum: Normal. Vessels: Unremarkable. Abdominal wall: Bilateral fat-containing inguinal hernias are seen. Bones: Ill-defined sclerosis is seen with compression deformities at L1 and L4. There is a left hip total arthroplasty. Healed left rib fractures are seen. IMPRESSION: 1. Numerous hepatic masses and ill-defined osteoblastic lesions with pathologic fractures are again seen. 2. No acute abnormality is seen to explain lower abdominal pain. There is a large rectal stool ball without evidence of inspissation or wall thickening to suggest stercoral colitis. 3. Cholelithiasis without cholecystitis. ACT 112: Negative or not required by law. Electronically signed by: Edison Montana M.D. 12/21/2022 5:[address] 12/21/22 14:11 CT head/brain wo con CLINICAL HISTORY: fall, dizziness Technique: Contiguous axial CT images of the head were acquired from the base of the skull to the vertex without intravenous contrast administration. Images were viewed in brain, subdural and bone windows. Automated dose lowering techniques and/or adjustment according to patient size were utilized for this exam. Comparison: Comparison is made to MRI brain 08/23/2022 Findings: Areas of decreased attenuation are present in the periventricular and subcorti marybeth white matter bilaterally consistent with small vessel ischemic disease. Generalized cerebral atrophy with commensurate enlargement of the ventricles, sulci, and cisterns is also present. There is no acute intracranial hemorrhage or evidence of acute territorial infarction. No shift of the midline structures, mass effect, or extra-axial abnormalities are shown. Atherosclerotic calcifications are present in the intracranial segments of the internal carotid arteries. Imaged portions of the paranasal sinuses and mastoid air cells are clear. The orbits appear normal. A few calvarial lesions are seen. Impression: A few calvarial lesions are seen. Previously noted enhancing foci are not well seen on today's exam. ACT 112: Negative or not required by law. Electronically signed by: Edison Montana M.D. 12/21/2022 4:44 PM MDM Narrative 77 year old female who presents to ED today with c/o weakness, dizziness, and low back pain. Review of pertinent visits and patient history performed including PCP visit from 12/19/22. Vital signs in ED within normal limits, afebrile. Given significant past medical history, full work up was performed. IV access was established and labs were obtained. Labs demonstrate chronic anemia with hgb 10.5, mild neutrophilia 7, chronic hyponatremia 130. No leukocytosis or significant electrolyte abnormalities. AST mildly elevated 49. Alk phos 338. Lipase WNL. Coags within normal limits. Troponin negative. EKG demonstrating NSR at a rate of 77 bpm without evidence of ischemic changes. Urinalysis demonstrates > 30 WBC, 5-10 RBC, trace leukocyte esterase. Head CT and CT abd/pelvis obtained and personally reviewed as well as interpreted by radiology and demonstrates no significant acute findings. Stable hepatic masses and cholelithiasis without cholecystis. There is moderate stool burden seen within bowel. While in ED, patient was treated with 1L IV fluids as well as IV Tylenol for pain. She was re-evaluated on numerous occasions throughout ED stay and remained stable without new concerns. Clinically, she is nontoxic appearing in no acute distress. She did require further pain control with 4mg IV morphine while in ED. Given general decline in overall clinical status, patient's family is requesting [facility] a [facility] facility. Her exam findings have otherwise been relatively unremarkable at this time. This was discussed with patient and patient's family. Case was discussed with hospitalist PA, Chandra Storm, who graciously accepted patient for admission for pain control and SNF placement. Patient was admitted in stable condition. Case was discussed with attending, Dr. Najera, who agrees with work up and treatment plan. Impression & Plan Falls frequently, Cancer related pain, Weakness, Lung cancer metastatic to bone Discharge Plan Visit Data Chief Complaint: Back Injury/Pain ED Provider: Yonatan Najera ED Midlevel Provider: Kayla Huertas Discharge Problem: Falls frequently, Cancer related pain, Weakness, Lung cancer metastatic to bone Patient Disposition: Admitted As Inpatient Condition: Good Forms Stand Alone Forms: [facility] Prescriptions Prescriptions: No Action furosemide [Lasix] 20 mg tablet 10 mg PO QAM omeprazole 20 mg capsule,delayed release(DR/EC) 20 mg PO QAM Qty: 90 3RF amiodarone 200 mg Tablet 200 mg PO BID Qty: 60 2RF allopurinol 300 mg Tablet 300 mg PO HS Qty: 30 5RF levalbuterol tartrate [Xopenex HFA] 45 mcg/actuation Hfa Aerosol Inhaler 2 puff inhalation Q6H PRN (Reason: cough/wheeze/shortness of breath) Qty: 1 0RF Rx Instructions: use with spacer device potassium chloride 10 mEq Tablet,Er Particles/Crystals 10 meq PO BID Qty: 30 0RF calcium carbonate [Calcium Antacid] 200 mg calcium (500 mg) Tablet,Chewable 1,000 mg PO Q6H PRN (Reason: Gi Upset) ondansetron 4 mg Tablet,Disintegrating 4 mg PO Q6H PRN (Reason: Nausea) buspirone 5 mg tablet 5 mg PO BID polysaccharide iron complex [Ferrex 150] 150 mg iron Capsule 150 mg PO DAILY mirtazapine 15 mg tablet 15 mg PO HS polyethylene glycol 3350 [Miralax] 17 gram/dose Powder 17 g PO DAILY PRN (Reason: Constipation) Rx Instructions: 17 gm by mouth as needed...mix with 8 oz of fluid of choice acetaminophen [Tylenol] 325 mg Tablet 650 mg PO Q6 MDD 3g PRN (Reason: Fever) ascorbic acid (vitamin C) [Vitamin C] 500 mg Tablet 1,000 mg PO DAILY diclofenac sodium 1 % Gel 2 g TOPICAL BID PRN (Reason: Pain) Rx Instructions: apply to bilateral knees and lower back every day and evening shift sennosides-docusate sodium [Senokot-S] 8.6-50 mg Tablet 1 tab PO HS Qty: 30 0RF magnesium oxide 400 mg (241.3 mg magnesium) Tablet 400 mg PO QAM Qty: 30 0RF lorazepam [Ativan] 0.5 mg tablet 0.5 mg PO Q6 PRN (Reason: Anxiety) Qty: 10 0RF oxycodone 5 mg tablet 5 mg PO Q4H PRN (Reason: Pain (Scale score 5-10)) Qty: 10 0RF fentanyl 50 mcg/hr patch 72 hour 50 mcg topical Q72H sodium chloride 1,000 mg Tablet,Soluble 1,000 mg PO DAILY metformin 500 mg tablet extended release 24 hr 500 mg PO BID Referrals Referrals: [facility] [Non-Staff] -
--- NOTE | 2022-12-21 15:42 | Emergency Department Note ---
ED Visit Note I was consulted by the Advanced Practice Provider. I saw the patient personally and performed a substantive portion of the visit. This includes aspects of the HPI, MDM, diagnostic interpretations, and disposition/plan. The patient presents with weakness and the inability to ambulate. She has fallen. She has complaints of pain and has known metastatic cancer. Her family states that she is too ill/weak to be cared for at home. Patient was ordered for a weakness work-up. Imaging has been ordered as well. Hospitalization is warranted. .
--- NOTE | 2022-12-21 15:53 | Electrocardiogram Report ---
Test Reason : Blood Pressure : / mmHG Vent. Rate : 077 BPM Atrial Rate : 077 BPM P-R Int : 180 ms QRS Dur : 082 ms QT Int : 410 ms P-R-T Axes : 000 174 154 degrees QTc Int : 463 ms Poor data quality, interpretation may be adversely affected Suspect arm lead reversal, interpretation assumes no reversal Normal sinus rhythm Low voltage QRS Lateral infarct , age undetermined Abnormal ECG When compared with ECG of 22-NOV-2022 22:49, QRS axis Shifted right Lateral infarct is now Present Confirmed by Enzo Watson ([id number]) on 12/21/2022 3:53:35 PM Referred By: REFERRED SELF Confirmed By:Enzo Watson
[2022-12-21 15:59] LABS: Basophils # (auto) 0.05 K/uL (0-0.2); Basophils % (auto) 0.5 %; Eosinophils # (auto) 0.05 K/uL (0-0.50); Eosinophils % (auto) 0.5 %; Hematocrit (blood only) 31.7 % (37.0-47.0); Hemoglobin 10.5 g/dl (12.0-16.0); Immature Granulocytes # (auto) 0.19 K/uL (0.01-0.20); Lymphocytes # (auto) 1.14 K/uL (1.2-3.4); Lymphocytes % (auto) 12.1 %; Mean Corpuscular Hemoglobin 32.7 pg (25.0-34.0); Mean Corpuscular Hgb Conc 33.1 g/dL (32.0-36.0); Mean Corpuscular Volume 98.8 fL (80.0-100.0); Mean Platelet Volume 9.4 fL (9.4-12.4); Monocytes # (auto) 0.98 K/uL (0.11-0.59); Monocytes % (auto) 10.4 %; Neutrophils # (auto) 7.04 K/uL (1.40-6.50); Neutrophils % (auto) 74.5 %; Platelet Count 412 K/uL (130-400); RDW Coefficient of Variation 16.5 % (11.5-14.5); RDW Standard Deviation 60.5 fL (36.4-46.3); Red Blood Count 3.21 M/uL (4.20-5.40); White Blood Count 9.45 K/ul (4.8-10.8)
[2022-12-21 16:05] LABS: Bilirubin,Total 0.5 mg/dl (0.2-1.0); Potassium 4.2 mmol/L (3.5-5.1)
[2022-12-21 16:11] LABS: Albumin Globulin Ratio 1.1 (0.9-2); BUN Creatinine Ratio 18.6 (10-20); Creatinine Clr Calc Pharmacy 52.6 ml/min; Est GFR (African American) 74.5 ml/min; Est GFR (Non-African American) 64.3 ml/min; Globulin 2.8 gm/dl (2.5-4.0); Total Protein 5.8 gm/dl (6.0-8.3)
[2022-12-21 16:15] LABS: Partial Thromboplastin Time 28.5 Seconds (21.0-31.0)
[2022-12-21 16:16] LABS: Troponin I High Sensitivity 10.8 pg/ml (0-14)
--- NOTE | 2022-12-21 16:34 | History & Physical Report ---
Date of Service December 21, 2022 Assessment & Plan (1) Fall: Plan: -Admit to med/tele -The patient is currently afebrile, hemodynamically stable, and stable on RA -Recently discharged home from [facility] for left hip dislocation, since then she has been experiencing generalized LE weakness and multiple falls while trying to transfer -Family believes she needs placement at this time, PT/OT consults ordered -CT of the head was negative for acute changes compared to her MRI of the brain on 08/23/22 -CT of the abd/pelvis and xray of the hips show Nondisplaced fractures of the left inferior pubic ring and left sacral ala, no acute trauma to the left hip replacement -Chest xray without signs of acute trauma -Will consult orthopedics, bedrest for now -Will continue her home pain regimen including her fentanyl patch, prn oxycodone, and scheduled tylenol -BL SCDs and Sub-Q heparin for now for DVT PPX -AM CBC, CMP, Mag (2) Hyponatremia: Plan: -Sodium today noted to be 130 -Patient has a recent history of hyponatremia since September of 2022, 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 -Was previously started on 10 mg PO lasix daily with 1500 mL fluid restriction and 1gm NACL tabs HS -Per history, was still taking her lasix and NACL tabs but was not following the 1500 mL fluid restriction, has also been drinking mostly free water -Current hyponatremia is likely multifactorial including her known SIADH, poor oral intake, free water intake and current IVAN -S/P 500 mL NSS in the ED -Hold additional IV fluids at this time -Will start a free water restriction of 1500 mL, hold her lasix and sodium chloride tabs for now -Will repeat a BMP at 1900 to monitor her response to the 500 mL NSS bolus, then will adjust her treatment as needed -Monitor am renal function and electrolytes on CMP (3) Cancer related pain: Plan: -Patient with severe low back pain from her known mets and with known L1 and L4 compression fractures -Continue fentanyl patch and prn Oxycodone as precribed at home, will add on scheduled tylenol -Adjust regimen as needed (4) Small cell lung cancer: Plan: -Patient with known 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, liver, brain, and pelvis -[place] [facility] [place] but missed her last chemotherapy treatment as she was admitted here for her left hip replacement dislocation -CT of the abd/pelvis today showing progression of her liver mets compared to last CT in October -Alk phos and ALT also increased from last admission -Oncology consult placed, may need to consider a palliative care consult as she has had a severe clinical decline since her diagnosis -Continue allopurinol (5) IVAN (acute kidney injury): Plan: -Patient's Cr today noted to be 0.86 today, baseline appears to be 0.5-0.6 -Likely due to poor oral intake and continued lasix use, she also appears to have a UTI -Ct of the abd/pelvis showing mild pelviectasis without evidence of obstruction -S/P 500 mL NSS in the ED -For now will hold lasix and see how her renal function responds -Avoid nephrotoxic agents (6) Hypertension: Plan: -Stable -continue to monitor (7) Type 2 diabetes mellitus: Plan: -Has been off metformin and controlling BSG with diet -Last A1C in September of 2022 was 6.9 -For now will monitor BSG ACHS, will hold lantus for now to avoid hypoglycemia, -Correction factor of 50 with carb ratio of 15 -DM II diet, adjust regimen as needed (8) SVT (supraventricular tachycardia): Plan: -Stable -Continue amiodarone (9) Elevated LFTs: Plan: -See SCLL (10) UTI (urinary tract infection): Plan: -Patient has been experiencing increased urinary frequency -UA today shows trace leukocyte esterase, > 30 WBC's -Last urine culture grew pansensitive e.coli -Will start her on Ceftriaxone for now and adjust abx to urine culture and sensitivities (11) Constipation: Plan: -Patient noted to have a large rectal stool burden without signs of obstruction or stercoral colitis -Will start bowel regimen and order a tap water enema now -Monitor for resolution Plan The patient was discussed with Dr. Wynne at the time of the admission History of Present Illness Chief Complaint: Generalized weakness, dizziness, falls at home Primary Care Provider: Delbert Miramontes MD Lore is a 77yo female with a history of small cell lung cancer with mets to the brain, spine, and hips S/P palliative radiation therapy and currently receiving chemotherapy and follows with [facility] [place], SVT, HTN, HLD, T2DM (diet controlled), Hyponatremia 2/2 SIADH, OA, and MARI who presented to the [facility] ED on 12/21/22 due to generalized weakness, dizziness, and multiple falls at home. Per chart review, the patient has had multiple admissions over the past 2 months due to recently diagnosed small cell lung cancer with mets to the spine and hips. She underwent left hemiarthroplasty performed on 10/29/2021 and was discharged to [facility]. She experienced a fall off of the toilet while at [facility] and sustained a dislocation of the replaced left hip. She underwent closed reduction under anesthesia on 11/[address] Flores. She was treated for a possible UTI during this admission with 5 days of Cefdinir as she had previously been on Doxycycline but was not improving. She was noted to be hyponatremic with sodium levels between 127-131. This was thought to be caused from SIADH due to her known cancer; she was treated with a 1500 mL fluid restriction and started on 10 mg PO lasix daily. She was again discharged to [facility] and was reportedly discharged home with health services approximately 1 week ago. In the ED today the patient was found to be afebrile, hemodynamically stable, and stable on RA. Labs were remarkable for a CBC with WBC WNL, stable Hgb at 10.5, platelet count of 412, Cr of 0.86 (baseline appears to be approximately 0.50), sodium of 1330 with a glucose of 86, chloride of 95 otherwise stable electrolytes, AST of 49 (up from 41 as of 12/01/22), alk phos of 338 (up from 221 as of 12/01/22), and covid [address] of the head was read as "A few calvarial lesions are seen. Previously noted enhancing foci are not well seen on today's exam.". CT of the abdomen/pelvis with IV contrast was read as "1. Numerous hepatic masses and ill-defined osteoblastic lesions with pathologic fractures are again seen. 2. No acute abnormality is seen to explain lower abdominal pain. There is a large rectal stool ball without evidence of inspissation or wall thickening to suggest stercoral colitis.3. Cholelithiasis without cholecystitis."xray of the chest was read as "1. Cardiomegaly and emphysema. 2. There is complete atelectasis of the right upper lobe which is new from previous. 3. A right upper lobe mass lesion is likely unchanged. This is not well assessed due to right upper lobe atelectasis. 4. Additional findings as above. XR of the left hip was read as "1. Nondisplaced fracture of the left sacral ala. 2. Nondisplaced fracture of the left inferior pubic ring. 3. A left hip arthroplasty is in near anatomic alignment.". Prior to admission the patient was given 500 mL NSS and 1,000 mg PO Acetaminophen. At the time of the exam the patient was lying in bed in discomfort due to her low back and pelvic pain but no acute distress with her daughter sitting bedside, history was obtained from both. Her daughter states that the patient was initially doing well after discharge from [facility] last week but has had progressive generalized weakness and multiple falls. They explain that on discharge from [facility] she was able to stand from sitting with the assistance of a walker and ambulate with a walker. Over the weekend the patient experienced her first fall when she was trying to transition to a chair. She slipped and landed on her buttocks, EMS was called to help her up. Her daughter states that the patient was only down for approximately 20 min max. The patient states that she experienced worsening low back and pelvis pain after the initial fall. Since then she has had 3 episodes where she had to slide to the ground landing on her buttocks due to generalized weakness. She did not hit her head or lose consciousness after all of her falls. Her appetite has not been very good recently, she will usually eat 2 meals daily but usually they are small. Her daughter states that the patient frequently sips water due to thirst. The patient feels as though she is constipated but has been having small and frequent episodes of non-bloody diarrhea. She denies dysuria and hematuria but has been experiencing increased urinary frequency like her previous UTIs. Her daughter notes small sacral skin breakdowns and a left heel ulcer. The patient missed her last chemotherapy session as she was hospitalized and they have been unable to see her Oncologist since. They are in agreement with rehab due to her increased ADL's requirements at this time. They deny recent fevers, chills, headache, changes in vision, hearing, taste, and smell, chest pain, SOB, nausea, vomiting, dysuria, hematuria, lower extremity swelling. We discussed code status, the patient is a DNR/DNI and her daughter would make medical decisions for her if she could not make them herself. Please refer to Dr. Wynne's attetsation for any changes to the treatment plan Allergies Allergy/AdvReac Type Severity Reaction Status Date / Time No Known Allergies Allergy Verified 12/21/22 15:19 Home Medications Medication Instructions Recorded Confirmed Type omeprazole 20 mg capsule,delayed 20 mg PO QAM #90 caps 10/21/21 12/21/22 Rx release allopurinol 300 mg tablet 300 mg PO HS #30 tabs 08/27/22 12/21/22 Rx amiodarone 200 mg tablet 200 mg PO BID #60 tabs 08/27/22 12/21/22 Rx levalbuterol tartrate 45 2 puff inhalation Q6H PRN 08/28/22 12/21/22 Rx mcg/actuation aerosol inhaler cough/wheeze/shortness of breath (Xopenex HFA) #1 g furosemide 20 mg tablet (Lasix) 10 mg PO QAM 09/27/22 12/21/22 History potassium chloride 10 mEq 10 meq PO BID #30 tabs 10/09/22 12/21/22 Rx tablet,extended release(part/cryst) calcium carbonate 200 mg calcium 1,000 mg PO Q6H PRN Gi Upset 10/27/22 12/21/22 History (500 mg) chewable tablet (Calcium Antacid) ondansetron 4 mg disintegrating 4 mg PO Q6H PRN Nausea 10/28/22 12/21/22 History tablet acetaminophen 325 mg tablet 650 mg PO Q6 PRN Fever 11/22/22 12/21/22 History (Tylenol) ascorbic acid (vitamin C) 500 mg 1,000 mg PO DAILY 11/22/22 12/21/22 History tablet (Vitamin C) buspirone 5 mg tablet 5 mg PO BID 11/22/22 12/21/22 History mirtazapine 15 mg tablet 15 mg PO HS 11/22/22 12/21/22 History polyethylene glycol 3350 17 17 g PO DAILY PRN Constipation 11/22/22 12/21/22 History gram/dose oral powder (Miralax) polysaccharide iron complex 150 mg 150 mg PO DAILY 11/22/22 12/21/22 History iron capsule (Ferrex) diclofenac sodium 1 % topical gel 2 g topical BID PRN Pain 11/23/22 12/21/22 History lorazepam 0.5 mg tablet (Ativan) 0.5 mg PO Q6 PRN Anxiety #10 tabs 11/25/22 12/21/22 Rx magnesium oxide 400 mg (241.3 mg 400 mg PO QAM #30 tabs 11/25/22 12/21/22 Rx magnesium) tablet oxycodone 5 mg tablet 5 mg PO Q4H PRN Pain (Scale score 11/25/22 12/21/22 Rx 5-10) #10 tabs sennosides 8.6 mg-docusate sodium 1 tab PO HS #30 tabs 11/25/22 12/21/22 Rx 50 mg tablet (Senokot-S) fentanyl 50 mcg/hr transdermal 50 mcg topical Q72H 12/21/22 12/21/22 History patch metformin 500 mg tablet,extended 500 mg PO BID 12/21/22 12/21/22 History release 24 hr sodium chloride 1,000 mg soluble 1,000 mg PO DAILY 12/21/22 12/21/22 History tablet Past Med/Surg History Medical History (Updated 12/22/22 @ 12:56 by Ca Shaw, MOO) Alcohol intoxication Blood loss Cancer related pain Cornea abrasion Dislocation, hip closed History of cigarette smoking Hyperlipidemia Hypertension Hyponatremia Hypotension Liver lesion Metastatic cancer Widespread Stage IV Met Ca likely lung primary, bx needed, 08/19/22 Open tibial fracture Palliative care by specialist Palliative care encounter Pathologic lumbar vertebral fracture Sensorineural hearing loss of both ears Small cell lung cancer SVT (supraventricular tachycardia) Type 2 diabetes mellitus Surgical History (Updated 11/23/22 @ 06:53 by Toy Flores MD) History of ankle surgery broken ankle-2014 at [facility] History of appendectomy History of hemicolectomy January 2016--[facility] History of left hip hemiarthroplasty History of tonsillectomy History of tubal ligation Port-A-Cath in place (08/24/22) Aport Placement(Left) - Edwin Roa DO, FACS Family History Sister Primary adenocarcinoma of vagina Father Asthma Hypertension Macular degeneration Pulmonary embolism Mother Emphysema lung Brother Macular degeneration Denies family history of Ovarian cancer Prostate cancer Myocardial infarction Breast cancer Colorectal cancer Social History Smoking Status: Former smoker Tobacco Type: Cigarettes packs per day: 2; Cigarettes Per Day: 2 packs; Second Hand Exposure: No; Hx Alcohol Use: No Hx Substance Use: No Preferred Language: Azeri Communication Ability: Effective Visual Impairment: No Limitations Hearing Ability: Normal Rn Transfer Required: No Beliefs That Will Affect Care: None marital status: Current Living Situation: Spouse Current Living Situation Comment: Home with current occupational status: retired How many Children do You have: 2 Feels Safe at Home: Yes Childhood Exposure to Second-Hand Smoke: Yes caffeine: Yes (coffee 4 cups a day ) Dental Care, Regularly: Yes Physical Activity Frequency: Daily Physical Activity Frequency Comment: bicycle Seatbelt Use: always Sunscreen Use: Yes Assistive Devices: Bedside Commode, Walker and Wheelchair Review of Systems Review of Systems: Denies current fever, chills, headache, changes in vision, hearing, taste, and smell, chest pain, SOB, cough, nausea, vomiting, hematemesis, melena, dysuria, hematuria All systems have been reviewed and are otherwise negative. Physical Exam Physical Exam: Physical Exam: General: In mild distress due to low back pain, malnourished, chronically ill-appearing HEENT: Normocephalic, atraumatic, no scleral icterus, pupils around round, symmetrical, and reactive to light, Dry mucus membranes, trachea midline, no thyromegaly Chest/Pulm: No respiratory distress, symmetrical chest expansion, scattered expiratory wheezing noted throughout Cardiac: RRR, no murmurs noted Abdomen: Negative for ascites and bruising, normoactive bowel sounds, soft, non-tender to palpation throughout Musculoskeletal: No tenderness to palpation of the head, cervical spine, intake BL UE ROM without pain, patient without pain to palpation of the hips, no acute trauma noted on the [facility]'s Extremities: Radial, dorsalis pedis, and posterior tibial pulses are intact and symmetrical, mild pitting edema noted in the LE's Skin: Patient with sacral pressure ulcer without signs of infection or drainage, left heel pressure ulcer is without signs of infection or drainage Neuro: Alert and oriented to person, place, month, year, no focal defects, CN II-XII tested and intact, no tremors noted, decreased by symmetrical strength in the LE's Psych: No acute distress, calm and cooperative during the exam Results & Data Results & Data ([facility]) Vital Signs (Past 12 Hours) Vital Signs Temp Pulse Resp BP Pulse Ox O2 Del Method 12/21/22 15:50 80 14 110/67 98 12/21/22 15:40 78 12 94 12/21/22 15:30 79 22 94 12/21/22 15:20 79 14 98 12/21/22 15:10 78 15 93 12/21/22 15:00 79 17 92 12/21/22 14:50 79 13 92 12/21/22 14:40 80 14 12/21/22 14:30 82 14 94 12/21/22 14:20 82 30 H 92 12/21/22 14:10 82 15 92 12/21/22 14:00 84 23 96 12/21/22 13:50 84 23 92 12/21/22 13:43 85 20 96 12/21/22 13:59 85 12/21/22 13:37 36.8 C 83 26 H 110/67 92 Room Air Laboratory Results Abnormal lab results 12/21/22 12/21/22 12/21/22 Range/Units 13:38 13:38 17:13 RBC 3.21 L (4.20-5.40) M/uL Hgb 10.5 L (12.0-16.0) g/dl Hct 31.7 L (37.0-47.0) % RDW Std Deviation 60.5 H (36.4-46.3) fL RDW Coeff of Charlie 16.5 H (11.5-14.5) % Plt Count 412 H (130-400) K/uL Neut # (Auto) 7.04 H (1.40-6.50) K/uL Lymph # (Auto) 1.14 L (1.2-3.4) K/uL [place] # (Auto) 0.98 H (0.11-0.59) K/uL Sodium 130 L (136-145) mmol/L Chloride 95 L (98-107) mmol/L AST 49 H (13-39) U/L Alkaline Phosphatase 338 H (34-104) U/L Total Protein 5.8 L (6.0-8.3) gm/dl Albumin 3.0 L (3.4-5.0) gm/dl Urine Protein 1+ H (Negative) Urine Ketones Trace H (Negative) Urine Blood Trace H (Negative) Ur Leukocyte Esterase Trace H (Negative) Urine WBC (Auto) >30 H (0-5) /hpf Urine RBC (Auto) 5-10 H (0-4) /hpf U Epithel Cells (Auto) 20-30 H (0-5) /lpf Diagnostic Findings Chest X-Ray 12/21/22 14:05 SINGLE VIEW CHEST CLINICAL HISTORY: Generalized weakness. FINDINGS: 2 AP, portable, semierect chest radiographs are compared to study dated 10/27/2022 and correlated with chest CT dated 10/08/2022. The examination is degraded by portable technique and patient rotation. A left internal jugular central venous infusion port is unchanged in position. The heart is enlarged. The pulmonary vasculature is noncongested. The mitral annulus is densely calcified. Emphysema and chronic interstitial thickening is similar to previous. A right upper lobe mass lesion is likely unchanged. There is complete atel ectasis of the right upper lobe which is new from previous. No large pleural effusion or pneumothorax is identified. The skeletal structures are osteopenic. The bony thorax is grossly intact. IMPRESSION: 1. Cardiomegaly and emphysema. 2. There is complete atelectasis of the right upper lobe which is new from previous. 3. A right upper lobe mass lesion is likely unchanged. This is not well assessed due to right upper lobe atelectasis. 4. Additional findings as above. ACT 112: Negative or not required by law. Electronically signed by: Yonatan Cooper M.D. 12/21/2022 5:19 PM Hip/Pelvis X-Ray 12/21/22 14:10 SINGLE VIEW PELVIS STUDY: 2 VIEWS LEFT HIP CLINICAL HISTORY: Fall. Pain. FINDINGS: An AP, portable, supine view of the pelvis with AP and frog-leg views of the left hip are compared to study dated 12/15/2022 and correlated with pelvic CT performed the same day 12/21/2022. The skeletal structures are heterogeneously osteopenic. A left hip arthroplasty is in near anatomic alignment. There is a nondisplaced fracture of the left inferior pubic ring, as well as a nondisplaced fracture of the left sacral ala. These were better seen on today's CT scan. No additional acute fracture is identified. Moderate arthritic change is seen in the right hip. Degenerative sclerosis is noted in the sacroiliac joints. Enthesophytes arise from the anterior superior iliac spines. A large calcified fibroid is noted in the pelvis. Excreted IV contrast is present within the ureters. IMPRESSION: 1. Nondisplaced fracture of the left sacral ala. 2. Nondisplaced fracture of the left inferior pubic ring. 3. A left hip arthroplasty is in near anatomic alignment. Electronically signed by: Yonatan Cooper M.D. 12/21/2022 5:27 PM Abdomen/Pelvis CT 12/21/22 14:11 CT abd pelvis IV con only CLINICAL HISTORY: lower abd pain TECHNIQUE: Helical axial images of the abdomen and pelvis were obtained and displayed. Automated dose lowering techniques and/or adjustment according to patient size were utilized for this exam. This exam was performed with intravenous contrast. CT DOSE: 398.37 mGy.cm COMPARISON: Comparison is made to CT abdomen pelvis 11/01/2022 FINDINGS: Lower chest: Diffuse interstitial lung disease is seen. Mitral annular calcifications are noted. Liver: Numerous hepatic masses are seen. The index lesion in the dome of the right liver measures 72 mm, increased from prior exam where it measured 58 mm. Remaining lesions also appear increased in size. Gallbladder and biliary tree: Cholelithiasis is seen without evidence of cholecystitis. No intra- or extrahepatic biliary ductal dilation. Pancreas: Unremarkable, no focal lesions. Spleen: Subcentimeter hypodensities are seen in the spleen. Adrenals: Adrenal gland thickening is again seen. Kidneys and ureters: Mild pelviectasis is seen without evidence of obstruction. Bladder: Unremarkable. Reproductive organs: Calcified fibroid is noted. Bowel: Diverticulosis is seen without evidence of diverticulitis. Prominent stool ball is seen without evidence of wall thickening. Lymph nodes Retroperitoneal: Unremarkable. Pelvic: Unremarkable. Mesenteric: Unremarkable. Peritoneum: Normal. Vessels: Unremarkable. Abdominal wall: Bilateral fat-containing inguinal hernias are seen. Bones: Ill-defined sclerosis is seen with compression deformities at L1 and L4. There is a left hip total arthroplasty. Healed left rib fractures are seen. IMPRESSION: 1. Numerous hepatic masses and ill-defined osteoblastic lesions with pathologic fractures are again seen. 2. No acute abnormality is seen to explain lower abdominal pain. There is a large rectal stool ball without evidence of inspissation or wall thickening to suggest stercoral colitis. 3. Cholelithiasis without cholecystitis. ACT 112: Negative or not required by law. Electronically signed by: Edison Montana M.D. 12/21/2022 5:[address] 12/21/22 14:11 CT head/brain wo con CLINICAL HISTORY: fall, dizziness Technique: Contiguous axial CT images of the head were acquired from the base of the skull to the vertex without intravenous contrast administration. Images were viewed in brain, subdural and bone windows. Automated dose lowering techniques and/or adjustment according to patient size were utilized for this exam. Comparison: Comparison is made to MRI brain 08/23/2022 Findings: Areas of decreased attenuation are present in the periventricular and subcortical white matter bilaterally consistent with small vessel ischemic disease. Generalized cerebral atrophy with commensurate enlargement of the ventricles, sulci, and cisterns is also present. There is no acute intracranial hemorrhage or evidence of acute territorial infarction. No shift of the midline structures, mass effect, or extra-axial abnormalities are shown. Atherosclerotic calcifications are present in the intracranial segments of the internal carotid arteries. Imaged portions of the paranasal sinuses and mastoid air cells are clear. The orbits appear normal. A few calvarial lesions are seen. Impression: A few calvarial lesions are seen. Previously noted enhancing foci are not well seen on today's exam. ACT 112: Negative or not required by law. Electronically signed by: Edison Montana M.D. 12/21/2022 4:44 PM ECG Additional Comments: Poor data quality, interpretation may be adversely affected Suspect arm lead reversal, interpretation assumes no reversal Normal sinus rhythm Low voltage QRS Lateral infarct , age undetermined Abnormal ECG When compared with ECG of 22-NOV-2022 22:49, QRS axis Shifted right Lateral infarct is now Present Confirmed by Enzo Watson ([id number]) on 12/21/2022 3:53:35 PM Code Status & VTE Plan Code Status DNR/DNI VTE Prophylaxis Plan VTE Prophylaxis will be ordered: Yes Supervising Physician Co-Signing Physician Notes Patient seen and examined, chart reviewed, case discussed with Chandra Storm PA-C and I agree with the assessment and plan as above except as otherwise noted Labs and images reviewed Lore Elizabeth is a 77-year-old female with history of small cell with mets to brain/spine undergoing chemo with [facility] and s/p palliative radiation, DM, hyperlipidemia, history of SVT, hyponatremia, SIADH, OA, MARI who presented with weakness, dizziness, and multiple falls. Patient has had progressive weakness and multiple falls since [facility]. Currently has low back and pelvic discomfort which worsened after slipping and landing on her buttocks. Did not lose consciousness. Patient has had decreased appetite and generally poor p.o. intake. Is not able to tolerate her symptom burden at home and is with progressive decline. At bedside she is well oriented, range of motion upper and lower extremities is grossly intact without pain, no focal tenderness on paraspinal palpation. Agree with management above, CM and heme- onc to follow. PT/OT pending PG Care Time/CCT Total # of Minutes Spent Total Time Spent with Patient: Total time spent is greater than 50% in coordination of care (as documented) at patient's floor/unit and/or counseling patient: Coding [place] [address] INT INP/OBS CARE 3/75MIN Patient Type Established Medical Decision Making High Complexity Diagnoses Fall W19.XXXA Encounter type: initial encounter Hyponatremia E87.1 Cancer related pain G89.3 Small cell lung cancer C34.90 IVAN (acute kidney injury) N17.9 Hypertension I10 Type 2 diabetes mellitus E11.9 SVT (supraventricular tachycardia) I47.1 Elevated LFTs R79.89 UTI (urinary tract infection) N39.0 Constipation K59.00 (1) Fall Encounter type: initial encounter Qualified Code(s): W19.XXXA - Unspecified fall, initial encounter
[2022-12-21] MEDS ORDERED: OPTIRAY 350 100ml IV ONE (16:39)
--- NOTE | 2022-12-21 16:45 | CT Scan Report ---
CT head/brain wo con CLINICAL HISTORY: fall, dizziness Technique: Contiguous axial CT images of the head were acquired from the base of the skull to the phyllis alex without intravenous contrast administration. Images were viewed in brain, subdural and bone [facility]. Automated dose lowering techniques and/or adjustment according to patient size were utilized for this exam. Comparison: Comparison is made to MRI brain 08/23/2022 Findings: Areas of decreased attenuation are present in the periventricular and subcortical white matter bilate rally consistent with small vessel ischemic disease. Generalized cerebral atrophy with commensurate e nlargement of the ventricles, sulci, and cisterns is also present. There is no acute intracranial hem orrhage or evidence of acute territorial infarction. No shift of the midline structures, mass effect, or extra-axial abnormalities are shown. Atherosclerotic calcifications are present in the intracran ial segments of the internal carotid arteries. Imaged portions of the paranasal sinuses and mastoid air cells are clear. The orbits appear normal. A few calvarial lesions are seen. Impression: A few calvarial lesions are seen. Previously noted enhancing foci are not well seen on today's exam. ACT 112: Negative or not required by law. Electronically signed by: Edison Montana M.D. 12/21/2022 4:44 PM
--- NOTE | 2022-12-21 17:01 | CT Scan Report ---
CT abd pelvis IV con only CLINICAL HISTORY: lower abd pain TECHNIQUE: Helical axial images of the abdomen and pelvis were obtained and displayed. Automated dose lowering techniques and/or adjustment according to patient size were utilized for this exam. This e xam was performed with intravenous contrast. CT DOSE: 398.37 mGy.cm COMPARISON: Comparison is made to CT abdomen pelvis 11/01/2022 FINDINGS: Lower chest: Diffuse interstitial lung disease is seen. Mitral annular calcifications are noted. Liver: Numerous hepatic masses are seen. The index lesion in the dome of the right liver measures 72 mm, increased from prior exam where it measured 58 mm. Remaining lesions also appear increased in siz e. Gallbladder and biliary tree: Cholelithiasis is seen without evidence of cholecystitis. No intra- or extrahepatic biliary ductal dilation. Pancreas: Unremarkable, no focal lesions. Spleen: Subcentimeter hypodensities are seen in the spleen. Adrenals: Adrenal gland thickening is again seen. Kidneys and ureters: Mild pelviectasis is seen without evidence of obstruction. Bladder: Unremarkable. Reproductive organs: Calcified fibroid is noted. Bowel: Diverticulosis is seen without evidence of diverticulitis. Prominent stool ball is seen withou t evidence of wall thickening. Lymph nodes Retroperitoneal: Unremarkable. Pelvic: Unremarkable. Mesenteric: Unremarkable. Peritoneum: Normal. Vessels: Unremarkable. Abdominal wall: Bilateral fat-containing inguinal hernias are seen. Bones: Ill-defined sclerosis is seen with compression deformities at L1 and L4. There is a left hip t otal arthroplasty. Healed left rib fractures are seen. IMPRESSION: 1. Numerous hepatic masses and ill-defined osteoblastic lesions with pathologic fractures are again seen. 2. No acute abnormality is seen to explain lower abdominal pain. There is a large rectal stool ball without evidence of inspissation or wall thickening to suggest stercoral colitis. 3. Cholelithiasis without cholecystitis. ACT 112: Negative or not required by law. Electronically signed by: Edison Montana M.D. 12/21/2022 5:00 PM
--- NOTE | 2022-12-21 17:21 | XRay Report ---
SINGLE VIEW CHEST CLINICAL HISTORY: Generalized weakness. FINDINGS: 2 AP, portable, semierect chest radiographs are compared to study dated 10/27/2022 and corre lated with chest CT dated 10/08/2022. The examination is degraded by portable technique and patient r otation. A left internal jugular central venous infusion port is unchanged in position. The heart is enlarged. The pulmonary vasculature is noncongested. The mitral annulus is densely calcified. Emphys collin and chronic interstitial thickening is similar to previous. A right upper lobe mass lesion is lik tere unchanged. There is complete atelectasis of the right upper lobe which is new from previous. No l arge pleural effusion or pneumothorax is identified. The skeletal structures are osteopenic. The bony thorax is grossly intact. IMPRESSION: 1. Cardiomegaly and emphysema. 2. There is complete atelectasis of the right upper lobe which is new from previous. 3. A right upper lobe mass lesion is likely unchanged. This is not well assessed due to right upper l obe atelectasis. 4. Additional findings as above. ACT 112: Negative or not required by law. Electronically signed by: Yonatan Cooper M.D. 12/21/2022 5:19 PM
--- NOTE | 2022-12-21 17:29 | XRay Report ---
SINGLE VIEW PELVIS STUDY: 2 VIEWS LEFT HIP CLINICAL HISTORY: Fall. Pain. FINDINGS: An AP, portable, supine view of the pelvis with AP and frog-leg views of the left hip are c ompared to study dated 12/15/2022 and correlated with pelvic CT performed the same day 12/21/2022. The sk eletal structures are heterogeneously osteopenic. A left hip arthroplasty is in near anatomic alignme nt. There is a nondisplaced fracture of the left inferior pubic ring, as well as a nondisplaced fract ure of the left sacral ala. These were better seen on today's CT scan. No additional acute fracture i s identified. Moderate arthritic change is seen in the right hip. Degenerative sclerosis is noted in the sacroiliac joints. Enthesophytes arise from the anterior superior iliac spines. A large calcified fibroid is noted in the pelvis. Excreted IV contrast is present within the ureters. IMPRESSION: 1. Nondisplaced fracture of the left sacral ala. 2. Nondisplaced fracture of the left inferior pubic ring. 3. A left hip arthroplasty is in near anatomic alignment. Electronically signed by: Yonatan Cooper M.D. 12/21/2022 5:27 PM
[2022-12-21 17:39] LABS: Appearance Urine Clear (Clear); Bacteria Urine Automated Negative (Negative); Bilirubin Urine Negative (Negative); Blood Urine Trace (Negative); Cast Urine Automated 0 /lpf (0-5); Color Urine Yellow; Epithelial Cell Urine Auto 20-30 /lpf (0-5); Glucose Urine UA Negative (Negative); Ketones Urine Trace (Negative); Leukocyte Esterase Urine Trace (Negative); Nitrite Urine Negative (Negative); Protein Urine 1+ (Negative); Specific Gravity Urine 1.013 (1.000-1.030); Urobilinogen Urine Negative (Negative); WBC Urine Automated >30 /hpf (0-5); pH Urine 6.5 (4.5-7.5)
[2022-12-21] MEDS ORDERED: GLUCAGON FOR INJ 1 MG VIAL SQ PRN (17:46)
[2022-12-21] MEDS ORDERED: GLUCOSE 10 TAB/TUBE PO PRN (17:46)
[2022-12-21] MEDS ORDERED: GLUCOSE 40% GEL 15 GM TUBE PO PRN (17:46)
[2022-12-21] MEDS ORDERED: CARBOHYDRATES FOR HYPOGLYCEMIA PO PRN (17:46)
[2022-12-21] MEDS ORDERED: DEXTROSE 50% 50 ML SYRINGE IV PRN (17:46)
[2022-12-21] MEDS ORDERED: MoRPHine SULFATE 4 MG/ML 1 ML CARP\\VIAL IV STA (17:51)
[2022-12-21] MEDS ORDERED: ALBUT/IPRATROP 3MG/0.5MG NEB 3 ML VIAL NEB PRN (18:18)
[2022-12-21] MEDS: cefTRIAXone SODIUM 2,000 MG in DEXTROSE 5% 50 ML IV SCH (18:45)
[2022-12-21 20:22] LABS: BUN Creatinine Ratio 18.2 (10-20); Calcium 8.1 mg/dl (8.5-10.1); Creatinine Clr Calc Pharmacy 58.7 ml/min; Est GFR (African American) 85.1 ml/min; Est GFR (Non-African American) 73.4 ml/min; Potassium 3.8 mmol/L (3.5-5.1)
[2022-12-21] MEDS ORDERED: POLYETHYLENE (MIRALAX) 17 GM PACK PO PRN (20:59)
[2022-12-21] MEDS ORDERED: LORazepam 0.5 MG TAB PO PRN (20:59)
[2022-12-21] MEDS ORDERED: oxyCODONE HCL IR 5 MG TAB (IMMEDIATE RELEASE) PO PRN (20:59)
[2022-12-21] MEDS ORDERED: LEVALBUTEROL TARTRATE 15 GM HFA.AER.AD INH PRN (20:59)
[2022-12-21] MEDS ORDERED: fentaNYL 50 MCG/HR TDSY TD SCH (20:59)
[2022-12-21] MEDS ORDERED: allopurinoL 300 MG TAB PO SCH (21:00)
[2022-12-21] MEDS: INSULIN ASPART PER UNIT CHARGE SC SCH (21:28)
[2022-12-21] MEDS: ALBUT/IPRATROP 3MG/0.5MG NEB 3 ML VIAL NEB SCH (22:01)
[2022-12-21] MEDS: AMIODARONE 200 MG TAB PO SCH (23:01)
[2022-12-21] MEDS: busPIRone 5 MG TAB PO SCH (23:02)
[2022-12-21] MEDS: HEPARIN SOD 5,000 UNIT/0.5 ML VIAL SQ SCH (23:03)
[2022-12-21] MEDS: DOCUSATE SODIUM/SENNA 50/8.6MG TAB PO SCH (23:03)
[2022-12-21] MEDS ORDERED: SODIUM CHLORIDE 1 GM TABLET PO STA (23:04)
[2022-12-21] MEDS: MIRTAZAPINE TAB 15 MG TAB PO SCH (23:05)
[2022-12-21] MEDS: POTASSIUM CHLORIDE 10 MEQ TABCR PO SCH (23:05)
[2022-12-21] MEDS: ACETAMINOPHEN 325 MG TAB PO SCH (23:06)
[2022-12-22] MEDS: CHECK fentaNYL PATCH PLACEMENT SCH ×3 (00:29→16:14)
[2022-12-22 02:51] LABS: Basophils # (auto) 0.05 K/uL (0-0.2); Basophils % (auto) 0.6 %; Eosinophils # (auto) 0.14 K/uL (0-0.50); Eosinophils % (auto) 1.6 %; Hemoglobin 9.2 g/dl (12.0-16.0); Immature Granulocytes # (auto) 0.15 K/uL (0.01-0.20); Immature Granulocytes % (auto) 1.7 %; Lymphocytes # (auto) 1.18 K/uL (1.2-3.4); Lymphocytes % (auto) 13.3 %; Mean Corpuscular Hgb Conc 34.1 g/dL (32.0-36.0); Mean Corpuscular Volume 96.8 fL (80.0-100.0); Mean Platelet Volume 9.1 fL (9.4-12.4); Monocytes # (auto) 0.85 K/uL (0.11-0.59); Monocytes % (auto) 9.6 %; Neutrophils # (auto) 6.47 K/uL (1.40-6.50); Neutrophils % (auto) 73.2 %; Platelet Count 361 K/uL (130-400); RDW Coefficient of Variation 16.4 % (11.5-14.5); RDW Standard Deviation 58.7 fL (36.4-46.3); Red Blood Count 2.79 M/uL (4.20-5.40); White Blood Count 8.84 K/ul (4.8-10.8)
[2022-12-22 03:05] LABS: Albumin Globulin Ratio 1.1 (0.9-2); Albumin Level 2.6 gm/dl (3.4-5.0); BUN Creatinine Ratio 22.7 (10-20); Bilirubin,Total 0.4 mg/dl (0.2-1.0); Calcium 8.4 mg/dl (8.5-10.1); Creatinine Clr Calc Pharmacy 55.3 ml/min; Est GFR (African American) 87.9 ml/min; Est GFR (Non-African American) 75.8 ml/min; Globulin 2.3 gm/dl (2.5-4.0); Total Protein 4.9 gm/dl (6.0-8.3)
[2022-12-22] MEDS: ACETAMINOPHEN 325 MG TAB PO SCH ×3 (05:45→18:00)
[2022-12-22] MEDS: ALBUT/IPRATROP 3MG/0.5MG NEB 3 ML VIAL NEB SCH ×2 (07:07→11:01)
[2022-12-22] MEDS: PANTOprazole 40 MG TAB PO SCH (08:15)
[2022-12-22] MEDS: HEPARIN SOD 5,000 UNIT/0.5 ML VIAL SQ SCH (08:15)
[2022-12-22] MEDS: busPIRone 5 MG TAB PO SCH ×2 (08:15→20:30)
[2022-12-22] MEDS: POTASSIUM CHLORIDE 10 MEQ TABCR PO SCH (08:15)
[2022-12-22] MEDS: AMIODARONE 200 MG TAB PO SCH (08:15)
[2022-12-22] MEDS: INSULIN ASPART PER UNIT CHARGE SC SCH ×3 (08:18→19:11)
[2022-12-22] MEDS ORDERED: IRON POLYSACCHARIDE COMPLEX 150 MG CAPSULE PO SCH (09:00)
[2022-12-22] MEDS ORDERED: MAGNESIUM OXIDE 400 MG TAB PO SCH (09:00)
--- NOTE | 2022-12-22 09:16 | Palliative Care Consultation ---
Date of Consultation December 22, 2022 Assessment & Plan (1) Palliative care by specialist: Patient is well versed on the role of palliative medicine in the management of advanced cancer related pain and symptoms. She is known to me from prior admissions. She tells me today that her pain and symptoms remain uncontrolled. (2) Counseling regarding advanced directives and goals of care: In addition to consult visit and exam, an additional 45 min was spent with pt at bedside in a face to face ACP and GOC discussion: Her primary concerns are her very severe cancer related pain and an uncontrolled anxiety that at times feels like panic to her. She states that she is not worried for herself. She believes that she has had "a good run of things" and is on afraid of her own mortality. She is more worried about the effects of her dying on her family, namely her who she feels has been extremely resistant and in denial about her prognosis and has consistently refused to discuss with her concerns and wishes for advanced illness planning and end-of-life care. She has designated her daughter to be her healthcare proxy and power of managing attorney. She is very clear that she does not want her making decisions for her as he would not be able to honor her wishes. She and her daughter have had numerous conversations in the months prior as her disease continued to progress and her functional decline worsened. She states that this time she is ready to transition to a plan of care that is more focused on her comfort and symptom management because she can no longer tolerate and during current level of symptom burden. She does not wish to return home because she does not have adequate caregiver support. She is very comfortable returning to the prison, [facility], for ongoing care and assistance with a focus on comfort and end-of-life care. She understands that she is nearing an end-of-life trajectory. She wants to focus on being more comfortable so that she can enjoy what ever time she has remaining with her family. At pt request I called her dtr and RODRIGUEZ Keys to provide update of above, dtr in full agreement. She asked for some guidance/talking maps for communicating this to her father/pt and I provided her with some language to use as well as offering a bedside family meeting tomorrow if they desire. Ludmila eesegun this will not be needed but was appreciative of the offer, she willc all me if she changes her mind about wanting to meet. Dispo plan is dc to SNF, transition to comfort care with hospice. Becky from CM aware. Due to payment and fee structures for SNF based care, pt may have to go there fore a "trial of rehab" before moving to comfort care because the OOP fees for comfort care aka [facility] care are prohibitive. Additionally, patient may need to qualify for medicaid before hospice can be added. See CM note for more details. (3) Cancer related pain: To improve her cancer related pain, I have increased TDF from 50mcg/hr to 62.5mcg with addition of another 12.5mcg/hr patch as well as increasing OxyIR to 15mg PO q3h (4) Anxiety: I have modified Ativan to 0.5mg PO q4h prn (5) Falls frequently: (6) Extensive stage primary small cell carcinoma of lung: (7) Pelvic ring fracture: (8) Weakness generalized: (9) Closed hip fracture: (10) Lung cancer metastatic to bone: Plan Palliative RT to improve pelvic fx pain. Dc to SNF for comfort care +/- hospice Comfort care status while in patient, orders written to improve symptom mgt per pt request Daughter/POA Ludmila has been updated/is in agreement with pt wishes. All questions answered to their apparent satisfaction. Ca Shaw DNP Clinical Director, Palliative Medicine History of Present Illness Reason for Consultation: On 12/22/22 @ 09:12 Gelacio Alvarado Wrote To Stefanie Goel metastatic cancer Attending Physician: Gelacio Alvarado MD History of Present Illness Lore Elizabeth is a 77yo female with metastatic SCLC w/mets to the brain, spine, and hips S/P palliative radiation therapy and currently receiving chemotherapy. [facility]. She is followed by our [facility] PMH: SVT, HTN, HLD, T2DM (diet controlled), Hyponatremia 2/2 SIADH, OA, and MAIR Lore came to ED last night with c/o progressive generalized weakness, dizziness, and multiple falls at home. She has had several admissions over the past 2 months due to complications from her cancer including a fall with fracture requiring Left hemiarthroplasty 10/29/2021 with subsequent dc to SNF rehab at [facility]. While at [facility], she fell again, this time she fell off the toilet and sustained a dislocation of the replaced left hip, which then required closed reduction under anesthesia 11/23/[address] Flores. During that admission she also required treatment for UTI with 5 days of Cefdinir, after several days on Doxycycline failed to improve her symptoms. She was noted to be hyponatremic, sodium levels between 127-131. This was thought to be caused from SIADH due to her known cancer; she was treated with a 1500 mL fluid restriction and started on 10 mg PO lasix daily. In ED, patient was found to be afebrile, hemodynamically stable, and stable on RA. Labs were remarkable for a CBC with WBC WNL, stable Hgb at 10.5, platelet count of 412, Cr of 0.86 (baseline appears to be approximately 0.50), sodium of 1330 with a glucose of 86, chloride of 95 otherwise stable electrolytes, AST of 49 (up from 41 as of 12/01/22), alk phos of 338 (up from 221 as of 12/01/22), and covid [address] of the head was read as "A few calvarial lesions are seen. Previously noted enhancing foci are not well seen on today's exam.". CT of the abdomen/pelvis with IV contrast was read as "1. Numerous hepatic masses and ill-defined osteoblastic lesions with pathologic fractures are again seen. 2. No acute abnormality is seen to explain lower abdominal pain. There is a large rectal stool ball without evidence of inspissation or wall thickening to suggest stercoral colitis.3. Cholelithiasis without cholecystitis."xray of the chest was read as "1. Cardiomegaly and emphysema. 2. There is complete atelectasis of the right upper lobe which is new from previous. 3. A right upper lobe mass lesion is likely unchanged. This is not well assessed due to right upper lobe atelectasis. 4. Additional findings as above. XR of the left hip was read as "1. Nondisplaced fracture of the left sacral ala. 2. Nondisplaced fracture of the left inferior pubic ring. 3. A left hip arthroplasty is in near anatomic alignment." Patient states that she has had an increasing frequency of falls as her illness has progressed. Although she was discharged from [facility] approximately 1 week ago, she has had multiple falls in that time. Her is in his 80s, and he has not been able to physically assist her. Her daughter and son live nearby but her daughter has significant physical limitations due to her own musculoskeletal disease. Patient states that she is at a point where she does not feel safe at home and would like to go back to a prison where she can have the technical assistance and caregiver support that she desires. She also notes that she has been steadily worsening. She feels that she should not have further cancer directed therapies. She also states that she has been increasingly suffering as her disease progressed and her pain is nearly unbearable. She would like a more aggressive plan of care to control her pain or at least to improve it substantially beyond the current level. She states that even now lying in bed her pain is an 8 out of 10. Allergies Allergy/AdvReac Type Severity Reaction Status Date / Time No Known Allergies Allergy Verified 12/21/22 15:19 Home Medications Medication Instructions Recorded Confirmed Type omeprazole 20 mg capsule,delayed 20 mg PO QAM #90 caps 10/21/21 12/21/22 Rx release allopurinol 300 mg tablet 300 mg PO HS #30 tabs 08/27/22 12/21/22 Rx amiodarone 200 mg tablet 200 mg PO BID #60 tabs 08/27/22 12/21/22 Rx levalbuterol tartrate 45 2 puff inhalation Q6H PRN 08/28/22 12/21/22 Rx mcg/actuation aerosol inhaler cough/wheeze/shortness of breath (Xopenex HFA) #1 g furosemide 20 mg tablet (Lasix) 10 mg PO QAM 09/27/22 12/21/22 History potassium chloride 10 mEq 10 meq PO BID #30 tabs 10/09/22 12/21/22 Rx tablet,extended release(part/cryst) calcium carbonate 200 mg calcium 1,000 mg PO Q6H PRN Gi Upset 10/27/22 12/21/22 History (500 mg) chewable tablet (Calcium Antacid) ondansetron 4 mg disintegrating 4 mg PO Q6H PRN Nausea 10/28/22 12/21/22 History tablet acetaminophen 325 mg tablet 650 mg PO Q6 PRN Fever 11/22/22 12/21/22 History (Tylenol) ascorbic acid (vitamin C) 500 mg 1,000 mg PO DAILY 11/22/22 12/21/22 History tablet (Vitamin C) buspirone 5 mg tablet 5 mg PO BID 11/22/22 12/21/22 History mirtazapine 15 mg tablet 15 mg PO HS 11/22/22 12/21/22 History polyethylene glycol 3350 17 17 g PO DAILY PRN Constipation 11/22/22 12/21/22 History gram/dose oral powder (Miralax) polysaccharide iron complex 150 mg 150 mg PO DAILY 11/22/22 12/21/22 History iron capsule (Ferrex) diclofenac sodium 1 % topical gel 2 g topical BID PRN Pain 11/23/22 12/21/22 History lorazepam 0.5 mg tablet (Ativan) 0.5 mg PO Q6 PRN Anxiety #10 tabs 11/25/22 12/21/22 Rx magnesium oxide 400 mg (241.3 mg 400 mg PO QAM #30 tabs 11/25/22 12/21/22 Rx magnesium) tablet oxycodone 5 mg tablet 5 mg PO Q4H PRN Pain (Scale score 11/25/22 12/21/22 Rx 5-10) #10 tabs sennosides 8.6 mg-docusate sodium 1 tab PO HS #30 tabs 11/25/22 12/21/22 Rx 50 mg tablet (Senokot-S) fentanyl 50 mcg/hr transdermal 50 mcg topical Q72H 12/21/22 12/21/22 History patch metformin 500 mg tablet,extended 500 mg PO BID 12/21/22 12/21/22 History release 24 hr sodium chloride 1,000 mg soluble 1,000 mg PO DAILY 12/21/22 12/21/22 History tablet Patient History Medical History (Updated 12/22/22 @ 12:56 by Ca Shaw DNP) Alcohol intoxication Blood loss Cancer related pain Cornea abrasion Dislocation, hip closed History of cigarette smoking Hyperlipidemia Hypertension Hyponatremia Hypotension Liver lesion Metastatic cancer Widespread Stage IV Met Ca likely lung primary, bx needed, 08/19/22 Open tibial fracture Palliative care by specialist Palliative care encounter Pathologic lumbar vertebral fracture Sensorineural hearing loss of both ears Small cell lung cancer SVT (supraventricular tachycardia) Type 2 diabetes mellitus Surgical History (Updated 11/23/22 @ 06:53 by Toy Flores MD) History of ankle surgery broken ankle-2015 at [facility] History of appendectomy History of hemicolectomy January 2016--[facility] History of left hip hemiarthroplasty History of tonsillectomy History of tubal ligation Port-A-Cath in place (08/24/22) Aport Placement(Left) - Edwin Roa DO, FACS Family History Sister Primary adenocarcinoma of vagina Father Asthma Hypertension Macular degeneration Pulmonary embolism Mother Emphysema lung Brother Macular degeneration Denies family history of Ovarian cancer Prostate cancer Myocardial infarction Breast cancer Colorectal cancer Social History Smoking Status: Former smoker Tobacco Type: Cigarettes packs per day: 2; Cigarettes Per Day: 2 packs; Second Hand Exposure: No; Hx Alcohol Use: No Hx Substance Use: No Preferred Language: [place] Communication Ability: Effective Visual Impairment: No Limitations Hearing Ability: Normal Mixer Operator Tablets Required: No Beliefs That Will Affect Care: None marital status: Current Living Situation: Spouse Current Living Situation Comment: Home with current occupational status: retired How many Children do You have: 2 Feels Safe at Home: Yes Childhood Exposure to Second-Hand Smoke: Yes caffeine: Yes (coffee 4 cups a day ) Dental Care, Regularly: Yes Physical Activity Frequency: Daily Physical Activity Frequency Comment: bicycle Seatbelt Use: always Sunscreen Use: Yes Assistive Devices: Bedside Commode, Walker and Wheelchair Review of Systems Review of Systems: All systems reviewed & are unremarkable except as noted in Subjective Physical Exam Physical Exam: Frail, elderly female, semireclined in bed. Appears uncomfortable. + Chemo related alopecia. + Bitemporal wasting. Pupils are equal, round and reactive to light. Extraocular movements are intact. Neck is supple and without any obvious JVD, stridor or thyromegaly. Her pharynx is pink, mucosa are slightly dry, and dentition is fair. There is mild use of accessory muscles with prolonged conversation or exertion from trying to reposition herself. Lung sounds are diminished overall with a few faint rhonchi. There is no audible wheeze. Heart tones are S1-S2, normal rhythm. Abdomen is soft, mildly tender to palpation and softly distended. Bowel sounds are present. There is generalized weakness throughout both upper and lower extremities. She is not able to reposition in bed without assistance. Her lower extremity weakness is more significant than her upper extremity weakness. She is awake and alert, interacting appropriately with this examiner, but fatigues easily and will sometimes drift off to sleep when there are longer pauses in our conversation. Her skin is pale and cool to touch. There is no overt clubbing or cyanosis noted. Results & Data ([facility]) Vital Signs (Past 12 Hours) Vital Signs Temp Pulse Pulse Resp BP Pulse Ox O2 Del Method 12/22/22 07:43 36.2 C L 80 16 96/59 L 95 Room Air 12/22/22 07:07 76 18 95 Room Air 12/22/22 03:04 36.4 C L 75 18 100/61 93 Room Air 12/22/22 01:39 88 12/21/22 23:15 36.3 C L 82 18 91/54 L 93 Room Air 12/21/22 22:13 77 12/21/22 22:03 83 96 Room Air 12/21/22 21:55 Room Air 12/21/22 21:55 36.5 C 78 18 120/73 93 Room Air FiO2 12/22/22 07:43 12/22/22 07:07 12/22/22 03:04 12/22/22 01:39 12/21/22 23:15 12/21/22 22:13 12/21/22 22:03 21 12/21/22 21:55 12/21/22 21:55 Laboratory Results Data reviewed Diagnostic Findings Data reviewed
--- NOTE | 2022-12-22 09:20 | Orthopedic Consultation ---
Date of Consultation December 22, 2022 Assessment & Plan (1) Pelvic ring fracture: Left inferior pubic rami fracture-nondisplaced. Left sacral bishop fracture- nondisplaced. -PT and OT. -She may weight-bear as tolerated on bilateral lower extremities with the assistance of walker for ambulation. -She may do full hip range of motion as tolerated on her right hip. Posterior hip precautions on the left hip due to the recent hemiarthroplasty and subsequent dislocation. -Ice as needed for pain or swelling. -Pain medication as per primary service. -Follow-up with Dr. Flores as scheduled in approximately 4 weeks. Will discuss findings with Dr. Rodriguez and Dr. Flores. (2) History of left hip hemiarthroplasty: - Continue with ice and anti-inflammatories, and rehabilitation program, progressing to activities as tolerated. - Continue total hip precautions for another 4 weeks. - Continue pillow between knees when in bed and knee immobilizer with transfers and when out of bed. - Weight-bear as tolerated left lower extremity - Use walker at all times to assist with ambulation - Follow-up with Dr. Flores as scheduled in approximately 4 weeks. History of Present Illness Reason for Consultation: Left sacral bishop fracture, left inferior pubic rami fracture both nondisplaced Status post left hip hemiarthroplasty and subsequent dislocation with closed reduction with Dr. Flores in October and November. Attending Physician: Gelacio Alvarado MD History of Present Illness Patient is a pleasant 77-year-old female who was admitted by medicine last night after presenting to the emergency room after having a fall and some family concerns about not being able to take care of her at home. She underwent a left hip hemiarthroplasty in October by Dr. Flores for a left femoral neck fracture. She then had a dislocation in the beginning of November which required a closed reduction under anesthesia performed in November. She was seen in our office last week while still in [facility]. She since has been discharged from [facility] and has been home. She states that she has had a few falls since being at home. She describes them "not so much as falls" is "more of like sliding out of bed onto the floor". She does have her family assisting her when this happens. They needed to call the ambulance to have them help her get off the floor at one time. She did not report to the emergency room at this time. She then had a home health therapist come to the home and assess her. That therapist recommended returning back to the emergency room for placement due to the frequent falls and possibly needing more assistance than she is able to get at home. Her chemotherapy has been on hold She does complain of pain in her left hip. She states that last week she was in the office to see Dr. Flores and she was doing fairly well. She states she either fell yesterday or the day before and now has a lot of low back discomfort and pain in the inner groin. She states she has been wearing her knee immobilizer and using a pillow between her knee pretty much all the time. She states most recently the home health nurse told her that she did not need to redo the knee immobilizer when in bed. Allergies Allergy/AdvReac Type Severity Reaction Status Date / Time No Known Allergies Allergy Verified 12/21/22 15:19 Home Medications Medication Instructions Recorded Confirmed Type omeprazole 20 mg capsule,delayed 20 mg PO QAM #90 caps 10/21/21 12/21/22 Rx release allopurinol 300 mg tablet 300 mg PO HS #30 tabs 08/27/22 12/21/22 Rx amiodarone 200 mg tablet 200 mg PO BID #60 tabs 08/27/22 12/21/22 Rx levalbuterol tartrate 45 2 puff inhalation Q6H PRN 08/28/22 12/21/22 Rx mcg/actuation aerosol inhaler cough/wheeze/shortness of breath (Xopenex HFA) #1 g furosemide 20 mg tablet (Lasix) 10 mg PO QAM 09/27/22 12/21/22 History potassium chloride 10 mEq 10 meq PO BID #30 tabs 10/09/22 12/21/22 Rx tablet,extended release(part/cryst) calcium carbonate 200 mg calcium 1,000 mg PO Q6H PRN Gi Upset 10/27/22 12/21/22 History (500 mg) chewable tablet (Calcium Antacid) ondansetron 4 mg disintegrating 4 mg PO Q6H PRN Nausea 10/28/22 12/21/22 History tablet acetaminophen 325 mg tablet 650 mg PO Q6 PRN Fever 11/22/22 12/21/22 History (Tylenol) ascorbic acid (vitamin C) 500 mg 1,000 mg PO DAILY 11/22/22 12/21/22 History tablet (Vitamin C) buspirone 5 mg tablet 5 mg PO BID 11/22/22 12/21/22 History mirtazapine 15 mg tablet 15 mg PO HS 11/22/22 12/21/22 History polyethylene glycol 3350 17 17 g PO DAILY PRN Constipation 11/22/22 12/21/22 History gram/dose oral powder (Miralax) polysaccharide iron complex 150 mg 150 mg PO DAILY 11/22/22 12/21/22 History iron capsule (Ferrex) diclofenac sodium 1 % topical gel 2 g topical BID PRN Pain 11/23/22 12/21/22 History lorazepam 0.5 mg tablet (Ativan) 0.5 mg PO Q6 PRN Anxiety #10 tabs 11/25/22 12/21/22 Rx magnesium oxide 400 mg (241.3 mg 400 mg PO QAM #30 tabs 11/25/22 12/21/22 Rx magnesium) tablet oxycodone 5 mg tablet 5 mg PO Q4H PRN Pain (Scale score 11/25/22 12/21/22 Rx 5-10) #10 tabs sennosides 8.6 mg-docusate sodium 1 tab PO HS #30 tabs 11/25/22 12/21/22 Rx 50 mg tablet (Senokot-S) fentanyl 50 mcg/hr transdermal 50 mcg topical Q72H 12/21/22 12/21/22 History patch metformin 500 mg tablet,extended 500 mg PO BID 12/21/22 12/21/22 History release 24 hr sodium chloride 1,000 mg soluble 1,000 mg PO DAILY 12/21/22 12/21/22 History tablet Patient History Medical History (Updated 12/22/22 @ 12:56 by Ca Shaw DNP) Alcohol intoxication Blood loss Cancer related pain Cornea abrasion Dislocation, hip closed History of cigarette smoking Hyperlipidemia Hypertension Hyponatremia Hypotension Liver lesion Metastatic cancer Widespread Stage IV Met Ca likely lung primary, bx needed, 08/19/22 Open tibial fracture Palliative care by specialist Palliative care encounter Pathologic lumbar vertebral fracture Sensorineural hearing loss of both ears Small cell lung cancer SVT (supraventricular tachycardia) Type 2 diabetes mellitus Surgical History (Updated 11/23/22 @ 06:53 by Toy Flores MD) History of ankle surgery broken ankle-2014 at [facility] History of appendectomy History of hemicolectomy January 2016--[facility] History of left hip hemiarthroplasty History of tonsillectomy History of tubal ligation Port-A-Cath in place (08/24/22) Aport Placement(Left) - Edwin Roa DO, PEEWEE Family History Sister Primary adenocarcinoma of vagina Father Asthma Hypertension Macular degeneration Pulmonary embolism Mother Emphysema lung Brother Macular degeneration Denies family history of Ovarian cancer Prostate cancer Myocardial infarction Breast cancer Colorectal cancer Social History Smoking Status: Former smoker Tobacco Type: Cigarettes packs per day: 2; Cigarettes Per Day: 2 packs; Second Hand Exposure: No; Hx Alcohol Use: No Hx Substance Use: No Preferred Language: Kazakh Communication Ability: Effective Visual Impairment: No Limitations Hearing Ability: Normal De Ionizer Operator Required: No Beliefs That Will Affect Care: None marital status: Current Living Situation: Spouse Current Living Situation Comment: Home with current occupational status: retired How many Children do You have: 2 Feels Safe at Home: Yes Childhood Exposure to Second-Hand Smoke: Yes caffeine: Yes (coffee 4 cups a day ) Dental Care, Regularly: Yes Physical Activity Frequency: Daily Physical Activity Frequency Comment: bicycle Seatbelt Use: always Sunscreen Use: Yes Assistive Devices: Bedside Commode, Walker and Wheelchair Physical Exam Musculoskeletal: Exam of her upper extremities: She is able to move her arms freely. No tenderness with range of motion of her fingers wrist elbows or shoulders. Exam of bilateral lower extremities: She has no significant distal edema. Distal pulses are 1+. Feet are warm and normal sensation. Normal strength with dorsiflexion, plantarflexion, inversion and eversion. No calf tenderness bilaterally. She is able to actively and independently straight leg raise her right leg off the bed. She is able to do that on the left side but only able to lift it for a second and about an inch off the bed. She has full range of motion of her hip and knee on the right leg without any discomfort. The left knee is stiff. Nontender with palpation. She can actively flex about 30 degrees. She tolerates logrolling of bilateral legs without discomfort. Her incision of her left hip is healed nicely. There is no visible ecchymosis. She is not specifically tender with palpation of her left sacrum. She has mild tenderness with palpation of the left superior pubic rami and pubic symphysis. Passively she tolerates hip flexion to about 70 degrees and abduction about 20 degrees. Results & Data ([facility]) Vital Signs (Past 12 Hours) Vital Signs Temp Pulse Pulse Resp BP Pulse Ox O2 Del Method 12/22/22 07:43 36.2 C L 80 16 96/59 L 95 Room Air 12/22/22 07:07 76 18 95 Room Air 12/22/22 03:04 36.4 C L 75 18 100/61 93 Room Air 12/22/22 01:39 88 12/21/22 23:15 36.3 C L 82 18 91/54 L 93 Room Air 12/21/22 22:13 77 12/21/22 22:03 83 96 Room Air 12/21/22 21:55 Room Air 12/21/22 21:55 36.5 C 78 18 120/73 93 Room Air FiO2 12/22/22 07:43 12/22/22 07:07 12/22/22 03:04 12/22/22 01:39 12/21/22 23:15 12/21/22 22:13 12/21/22 22:03 21 12/21/22 21:55 12/21/22 21:55 Laboratory Results 12/22/22 12/22/22 12/22/22 Range/Units 07:54 05:48 03:29 WBC (4.8-10.8) K/ul RBC (4.20-5.40) M/uL Hgb (12.0-16.0) g/dl Hct (37.0-47.0) % MCV (80.0-100.0) fL MCH (25.0-34.0) pg MCHC (32.0-36.0) g/dL RDW Std Deviation (36.4-46.3) fL RDW Coeff of Charlie (11.5-14.5) % Plt Count (130-400) K/uL MPV (9.4-12.4) fL Immature Gran % (Auto) % Neut % (Auto) % Lymph % (Auto) % [place] % (Auto) % Eos % (Auto) % Baso % (Auto) % Neut # (Auto) (1.40-6.50) K/uL Lymph # (Auto) (1.2-3.4) K/uL [place] # (Auto) (0.11-0.59) K/uL Eos # (Auto) (0-0.50) K/uL Baso # (Auto) (0-0.2) K/uL Immature Gran # (Auto) (0.01-0.20) K/uL PT (9.0-12.0) Seconds INR (0.9-1.1) APTT (21.0-31.0) Seconds PTT Ratio Sodium (136-145) mmol/L Potassium (3.5-5.1) mmol/L Chloride (98-107) mmol/L Carbon Dioxide (21-32) mmol/L Anion Gap (3-11) BUN (6-23) mg/dl Creatinine (0.6-1.2) mg/dl Est Cr Clr Drug Dosing ml/min Est GFR ( Amer) ml/min Est GFR (Non-Af Amer) ml/min BUN/Creatinine Ratio (10-20) Glucose (70-99(Fasting)) mg/dl POC Glucose 113 H 79 86 (70-99) mg/dl Lactate (0.4-2.0) mmol/L Calcium (8.5-10.1) mg/dl Magnesium (1.7-2.4) mg/dl Total Bilirubin (0.2-1.0) mg/dl AST (13-39) U/L ALT (7-52) U/L Alkaline Phosphatase (34-104) U/L Troponin I High Sens (0-14) pg/ml Total Protein (6.0-8.3) gm/dl Albumin (3.4-5.0) gm/dl Globulin (2.5-4.0) gm/dl Albumin/Globulin Ratio (0.9-2) Lipase (11-82) U/L Urine Color Urine Appearance (Clear) Urine pH (4.5-7.5) Ur Specific [place] (1.000-1.030) Urine Protein (Negative) Urine Glucose (UA) (Negative) Urine Ketones (Negative) Urine Blood (Negative) Urine Nitrite (Negative) Urine Bilirubin (Negative) Urine Urobilinogen (Negative) Ur Leukocyte Esterase (Negative) Urine WBC (Auto) (0-5) /hpf Urine RBC (Auto) (0-4) /hpf U Hyaline Cast (Auto) (0-5) /lpf U Epithel Cells (Auto) (0-5) /lpf Urine Bacteria (Auto) (Negative) SARS-CoV-2 (PCR) (Negative) Blood Type Antibody Screen 12/22/22 12/22/22 12/21/22 Range/Units 02:21 02:21 21:46 WBC 8.84 (4.8-10.8) K/ul RBC 2.79 L (4.20-5.40) M/uL Hgb 9.2 L (12.0-16.0) g/dl Hct 27.0 L (37.0-47.0) % MCV 96.8 (80.0-100.0) fL MCH 33.0 (25.0-34.0) pg MCHC 34.1 (32.0-36.0) g/dL RDW Std Deviation 58.7 H (36.4-46.3) fL RDW Coeff of Charlie 16.4 H (11.5-14.5) % Plt Count 361 (130-400) K/uL MPV 9.1 L (9.4-12.4) fL Immature Gran % (Auto) 1.7 % Neut % (Auto) 73.2 % Lymph % (Auto) 13.3 % [place] % (Auto) 9.6 % Eos % (Auto) 1.6 % Baso % (Auto) 0.6 % Neut # (Auto) 6.47 (1.40-6.50) K/uL Lymph # (Auto) 1.18 L (1.2-3.4) K/uL [place] # (Auto) 0.85 H (0.11-0.59) K/uL Eos # (Auto) 0.14 (0-0.50) K/uL Baso # (Auto) 0.05 (0-0.2) K/uL Immature Gran # (Auto) 0.15 (0.01-0.20) K/uL PT (9.0-12.0) Seconds INR (0.9-1.1) APTT (21.0-31.0) Seconds PTT Ratio Sodium 130 L (136-145) mmol/L Potassium 4.0 (3.5-5.1) mmol/L Chloride 98 (98-107) mmol/L Carbon Dioxide 29 (21-32) mmol/L Anion Gap 3 (3-11) BUN 17 (6-23) mg/dl Creatinine 0.75 (0.6-1.2) mg/dl Est Cr Clr Drug Dosing 55.3 ml/min Est GFR ( Amer) 87.9 ml/min Est GFR (Non-Af Amer) 75.8 ml/min BUN/Creatinine Ratio 22.7 H (10-20) Glucose 87 (70-99(Fasting)) mg/dl POC Glucose 71 (70-99) mg/dl Lactate (0.4-2.0) mmol/L Calcium 8.4 L (8.5-10.1) mg/dl Magnesium 2.0 (1.7-2.4) mg/dl Total Bilirubin 0.4 (0.2-1.0) mg/dl AST 45 H (13-39) U/L ALT 24 (7-52) U/L Alkaline Phosphatase 298 H (34-104) U/L Troponin I High Sens (0-14) pg/ml Total Protein 4.9 L (6.0-8.3) gm/dl Albumin 2.6 L (3.4-5.0) gm/dl Globulin 2.3 L (2.5-4.0) gm/dl Albumin/Globulin Ratio 1.1 (0.9-2) Lipase (11-82) U/L Urine Color Urine Appearance (Clear) Urine pH (4.5-7.5) Ur Specific [place] (1.000-1.030) Urine Protein (Negative) Urine Glucose (UA) (Negative) Urine Ketones (Negative) Urine Blood (Negative) Urine Nitrite (Negative) Urine Bilirubin (Negative) Urine Urobilinogen (Negative) Ur Leukocyte Esterase (Negative) Urine WBC (Auto) (0-5) /hpf Urine RBC (Auto) (0-4) /hpf U Hyaline Cast (Auto) (0-5) /lpf U Epithel Cells (Auto) (0-5) /lpf Urine Bacteria (Auto) (Negative) SARS-CoV-2 (PCR) (Negative) Blood Type Antibody Screen 0312/21/22 12/21/22 Range/Units 21:30 21:09 19:35 WBC (4.8-10.8) K/ul RBC (4.20-5.40) M/uL Hgb (12.0-16.0) g/dl Hct (37.0-47.0) % MCV (80.0-100.0) fL MCH (25.0-34.0) pg MCHC (32.0-36.0) g/dL RDW Std Deviation (36.4-46.3) fL RDW Coeff of Charlie (11.5-14.5) % Plt Count (130-400) K/uL MPV (9.4-12.4) fL Immature Gran % (Auto) % Neut % (Auto) % Lymph % (Auto) % [place] % (Auto) % Eos % (Auto) % Baso % (Auto) % Neut # (Auto) (1.40-6.50) K/uL Lymph # (Auto) (1.2-3.4) K/uL [place] # (Auto) (0.11-0.59) K/uL Eos # (Auto) (0-0.50) K/uL Baso # (Auto) (0-0.2) K/uL Immature Gran # (Auto) (0.01-0.20) K/uL PT (9.0-12.0) Seconds INR (0.9-1.1) APTT (21.0-31.0) Seconds PTT Ratio Sodium 129 L (136-145) mmol/L Potassium 3.8 (3.5-5.1) mmol/L Chloride 96 L (98-107) mmol/L Carbon Dioxide 28 (21-32) mmol/L Anion Gap 5 (3-11) BUN 14 (6-23) mg/dl Creatinine 0.77 (0.6-1.2) mg/dl Est Cr Clr Drug Dosing 58.7 ml/min Est GFR ( Amer) 85.1 ml/min Est GFR (Non-Af Amer) 73.4 ml/min BUN/Creatinine Ratio 18.2 (10-20) Glucose 82 (70-99(Fasting)) mg/dl POC Glucose 65 L* 69 L* (70-99) mg/dl Lactate (0.4-2.0) mmol/L Calcium 8.1 L (8.5-10.1) mg/dl Magnesium (1.7-2.4) mg/dl Total Bilirubin (0.2-1.0) mg/dl AST (13-39) U/L ALT (7-52) U/L Alkaline Phosphatase (34-104) U/L Troponin I High Sens (0-14) pg/ml Total Protein (6.0-8.3) gm/dl Albumin (3.4-5.0) gm/dl Globulin (2.5-4.0) gm/dl Albumin/Globulin Ratio (0.9-2) Lipase (11-82) U/L Urine Color Urine Appearance (Clear) Urine pH (4.5-7.5) Ur Specific [place] (1.000-1.030) Urine Protein (Negative) Urine Glucose (UA) (Negative) Urine Ketones (Negative) Urine Blood (Negative) Urine Nitrite (Negative) Urine Bilirubin (Negative) Urine Urobilinogen (Negative) Ur Leukocyte Esterase (Negative) Urine WBC (Auto) (0-5) /hpf Urine RBC (Auto) (0-4) /hpf U Hyaline Cast (Auto) (0-5) /lpf U Epithel Cells (Auto) (0-5) /lpf Urine Bacteria (Auto) (Negative) SARS-CoV-2 (PCR) (Negative) Blood Type Antibody Screen 12/21/22 12/21/22 12/21/22 Range/Units 17:13 15:04 15:03 WBC (4.8-10.8) K/ul RBC (4.20-5.40) M/uL Hgb (12.0-16.0) g/dl Hct (37.0-47.0) % MCV (80.0-100.0) fL MCH (25.0-34.0) pg MCHC (32.0-36.0) g/dL RDW Std Deviation (36.4-46.3) fL RDW Coeff of Charlie (11.5-14.5) % Plt Count (130-400) K/uL MPV (9.4-12.4) fL Immature Gran % (Auto) % Neut % (Auto) % Lymph % (Auto) % [place] % (Auto) % Eos % (Auto) % Baso % (Auto) % Neut # (Auto) (1.40-6.50) K/uL Lymph # (Auto) (1.2-3.4) K/uL [place] # (Auto) (0.11-0.59) K/uL Eos # (Auto) (0-0.50) K/uL Baso # (Auto) (0-0.2) K/uL Immature Gran # (Auto) (0.01-0.20) K/uL PT (9.0-12.0) Seconds INR (0.9-1.1) APTT (21.0-31.0) Seconds PTT Ratio Sodium (136-145) mmol/L Potassium (3.5-5.1) mmol/L Chloride (98-107) mmol/L Carbon Dioxide (21-32) mmol/L Anion Gap (3-11) BUN (6-23) mg/dl Creatinine (0.6-1.2) mg/dl Est Cr Clr Drug Dosing ml/min Est GFR ( Amer) ml/min Est GFR (Non-Af Amer) ml/min BUN/Creatinine Ratio (10-20) Glucose (70-99(Fasting)) mg/dl POC Glucose (70-99) mg/dl Lactate 0.9 (0.4-2.0) mmol/L Calcium (8.5-10.1) mg/dl Magnesium (1.7-2.4) mg/dl Total Bilirubin (0.2-1.0) mg/dl AST (13-39) U/L ALT (7-52) U/L Alkaline Phosphatase (34-104) U/L Troponin I High Sens (0-14) pg/ml Total Protein (6.0-8.3) gm/dl Albumin (3.4-5.0) gm/dl Globulin (2.5-4.0) gm/dl Albumin/Globulin Ratio (0.9-2) Lipase (11-82) U/L Urine Color Yellow Urine Appearance Clear (Clear) Urine pH 6.5 (4.5-7.5) Ur Specific [place] 1.013 (1.000-1.030) Urine Protein 1+ H (Negative) Urine Glucose (UA) Negative (Negative) Urine Ketones Trace H (Negative) Urine Blood Trace H (Negative) Urine Nitrite Negative (Negative) Urine Bilirubin Negative (Negative) Urine Urobilinogen Negative (Negative) Ur Leukocyte Esterase Trace H (Negative) Urine WBC (Auto) >30 H (0-5) /hpf Urine RBC (Auto) 5-10 H (0-4) /hpf U Hyaline Cast (Auto) 0 (0-5) /lpf U Epithel Cells (Auto) 20-30 H (0-5) /lpf Urine Bacteria (Auto) Negative (Negative) SARS-CoV-2 (PCR) (Negative) Blood Type O Positive Antibody Screen NEGATIVE 12/21/22 12/21/22 12/21/22 Range/Units 14:45 13:38 13:38 WBC 9.45 (4.8-10.8) K/ul RBC 3.21 L (4.20-5.40) M/uL Hgb 10.5 L (12.0-16.0) g/dl Hct 31.7 L (37.0-47.0) % MCV 98.8 (80.0-100.0) fL MCH 32.7 (25.0-34.0) pg MCHC 33.1 (32.0-36.0) g/dL RDW Std Deviation 60.5 H (36.4-46.3) fL RDW Coeff of Charlie 16.5 H (11.5-14.5) % Plt Count 412 H (130-400) K/uL MPV 9.4 (9.4-12.4) fL Immature Gran % (Auto) 2.0 % Neut % (Auto) 74.5 % Lymph % (Auto) 12.1 % [place] % (Auto) 10.4 % Eos % (Auto) 0.5 % Baso % (Auto) 0.5 % Neut # (Auto) 7.04 H (1.40-6.50) K/uL Lymph # (Auto) 1.14 L (1.2-3.4) K/uL [place] # (Auto) 0.98 H (0.11-0.59) K/uL Eos # (Auto) 0.05 (0-0.50) K/uL Baso # (Auto) 0.05 (0-0.2) K/uL Immature Gran # (Auto) 0.19 (0.01-0.20) K/uL PT (9.0-12.0) Seconds INR (0.9-1.1) APTT (21.0-31.0) Seconds PTT Ratio Sodium 130 L (136-145) mmol/L Potassium 4.2 (3.5-5.1) mmol/L Chloride 95 L (98-107) mmol/L Carbon Dioxide 28 (21-32) mmol/L Anion Gap 7 (3-11) BUN 16 (6-23) mg/dl Creatinine 0.86 (0.6-1.2) mg/dl Est Cr Clr Drug Dosing 52.6 ml/min Est GFR ( Amer) 74.5 ml/min Est GFR (Non-Af Amer) 64.3 ml/min BUN/Creatinine Ratio 18.6 (10-20) Glucose 86 (70-99(Fasting)) mg/dl POC Glucose (70-99) mg/dl Lactate (0.4-2.0) mmol/L Calcium 9.0 (8.5-10.1) mg/dl Magnesium (1.7-2.4) mg/dl Total Bilirubin 0.5 (0.2-1.0) mg/dl AST 49 H (13-39) U/L ALT 27 (7-52) U/L Alkaline Phosphatase 338 H (34-104) U/L Troponin I High Sens 10.8 (0-14) pg/ml Total Protein 5.8 L (6.0-8.3) gm/dl Albumin 3.0 L (3.4-5.0) gm/dl Globulin 2.8 (2.5-4.0) gm/dl Albumin/Globulin Ratio 1.1 (0.9-2) Lipase 32 (11-82) U/L Urine Color Urine Appearance (Clear) Urine pH (4.5-7.5) Ur Specific [place] (1.000-1.030) Urine Protein (Negative) Urine Glucose (UA) (Negative) Urine Ketones (Negative) Urine Blood (Negative) Urine Nitrite (Negative) Urine Bilirubin (Negative) Urine Urobilinogen (Negative) Ur Leukocyte Esterase (Negative) Urine WBC (Auto) (0-5) /hpf Urine RBC (Auto) (0-4) /hpf U Hyaline Cast (Auto) (0-5) /lpf U Epithel Cells (Auto) (0-5) /lpf Urine Bacteria (Auto) (Negative) SARS-CoV-2 (PCR) NEGATIVE (Negative) Blood Type Antibody Screen 12/21/22 Range/Units 13:38 WBC (4.8-10.8) K/ul RBC (4.20-5.40) M/uL Hgb (12.0-16.0) g/dl Hct (37.0-47.0) % MCV (80.0-100.0) fL MCH (25.0-34.0) pg MCHC (32.0-36.0) g/dL RDW Std Deviation (36.4-46.3) fL RDW Coeff of Charlie (11.5-14.5) % Plt Count (130-400) K/uL MPV (9.4-12.4) fL Immature Gran % (Auto) % Neut % (Auto) % Lymph % (Auto) % [place] % (Auto) % Eos % (Auto) % Baso % (Auto) % Neut # (Auto) (1.40-6.50) K/uL Lymph # (Auto) (1.2-3.4) K/uL [place] # (Auto) (0.11-0.59) K/uL Eos # (Auto) (0-0.50) K/uL Baso # (Auto) (0-0.2) K/uL Immature Gran # (Auto) (0.01-0.20) K/uL PT 11.0 (9.0-12.0) Seconds INR 1.0 (0.9-1.1) APTT 28.5 (21.0-31.0) Seconds PTT Ratio 1.0 Sodium (136-145) mmol/L Potassium (3.5-5.1) mmol/L Chloride (98-107) mmol/L Carbon Dioxide (21-32) mmol/L Anion Gap (3-11) BUN (6-23) mg/dl Creatinine (0.6-1.2) mg/dl Est Cr Clr Drug Dosing ml/min Est GFR ( Amer) ml/min Est GFR (Non-Af Amer) ml/min BUN/Creatinine Ratio (10-20) Glucose (70-99(Fasting)) mg/dl POC Glucose (70-99) mg/dl Lactate (0.4-2.0) mmol/L Calcium (8.5-10.1) mg/dl Magnesium (1.7-2.4) mg/dl Total Bilirubin (0.2-1.0) mg/dl AST (13-39) U/L ALT (7-52) U/L Alkaline Phosphatase (34-104) U/L Troponin I High Sens (0-14) pg/ml Total Protein (6.0-8.3) gm/dl Albumin (3.4-5.0) gm/dl Globulin (2.5-4.0) gm/dl Albumin/Globulin Ratio (0.9-2) Lipase (11-82) U/L Urine Color Urine Appearance (Clear) Urine pH (4.5-7.5) Ur Specific [place] (1.000-1.030) Urine Protein (Negative) Urine Glucose (UA) (Negative) Urine Ketones (Negative) Urine Blood (Negative) Urine Nitrite (Negative) Urine Bilirubin (Negative) Urine Urobilinogen (Negative) Ur Leukocyte Esterase (Negative) Urine WBC (Auto) (0-5) /hpf Urine RBC (Auto) (0-4) /hpf U Hyaline Cast (Auto) (0-5) /lpf U Epithel Cells (Auto) (0-5) /lpf Urine Bacteria (Auto) (Negative) SARS-CoV-2 (PCR) (Negative) Blood Type Antibody Screen Diagnostic Findings SINGLE VIEW PELVIS STUDY: 2 VIEWS LEFT HIP performed on 12/21/2022 CLINICAL HISTORY: Fall. Pain. FINDINGS: An AP, portable, supine view of the pelvis with AP and frog-leg views of the left hip are compared to study dated 12/15/2022 and correlated with pelvic CT performed the same day 12/21/2022. The skeletal structures are heterogeneously osteopenic. A left hip arthroplasty is in near anatomic alignment. There is a nondisplaced fracture of the left inferior pubic ring, as well as a nondisplaced fracture of the left sacral ala. These were better seen on today's CT scan. No additional acute fracture is identified. Moderate arthritic change is seen in the right hip. Degenerative sclerosis is noted in the sacroiliac joints. Enthesophytes arise from the anterior superior iliac spines. A large calcified fibroid is noted in the pelvis. Excreted IV contrast is present within the ureters. IMPRESSION: 1. Nondisplaced fracture of the left sacral ala. 2. Nondisplaced fracture of the left inferior pubic ring. 3. A left hip arthroplasty is in near anatomic alignment. CT abd pelvis IV con only performed on 12/21/2022 CLINICAL HISTORY: lower abd pain TECHNIQUE: Helical axial images of the abdomen and pelvis were obtained and displayed. Automated dose lowering techniques and/or adjustment according to patient size were utilized for this exam. This exam was performed with intravenous contrast. CT DOSE: 398.37 mGy.cm COMPARISON: Comparison is made to CT abdomen pelvis 11/01/2022 FINDINGS: Lower chest: Diffuse interstitial lung disease is seen. Mitral annular calcifications are noted. Liver: Numerous hepatic masses are seen. The index lesion in the dome of the right liver measures 72 mm, increased from prior exam where it measured 58 mm. Remaining lesions also appear increased in size. Gallbladder and biliary tree: Cholelithiasis is seen without evidence of cholecystitis. No intra- or extrahepatic biliary ductal dilation. Pancreas: Unremarkable, no focal lesions. Spleen: Subcentimeter hypodensities are seen in the spleen. Adrenals: Adrenal gland thickening is again seen. Kidneys and ureters: Mild pelviectasis is seen without evidence of obstruction. Bladder: Unremarkable. Reproductive organs: Calcified fibroid is noted. Bowel: Diverticulosis is seen without evidence of diverticulitis. Prominent stool ball is seen without evidence of wall thickening. Lymph nodes Retroperitoneal: Unremarkable. Pelvic: Unremarkable. Mesenteric: Unremarkable. Peritoneum: Normal. Vessels: Unremarkable. Abdominal wall: Bilateral fat-containing inguinal hernias are seen. Bones: Ill-defined sclerosis is seen with compression deformities at L1 and L4. There is a left hip total arthroplasty. Healed left rib fractures are seen. IMPRESSION: 1. Numerous hepatic masses and ill-defined osteoblastic lesions with pathologic fractures are again seen. 2. No acute abnormality is seen to explain lower abdominal pain. There is a l arge rectal stool ball without evidence of inspissation or wall thickening to suggest stercoral colitis. 3. Cholelithiasis without cholecystitis.
[2022-12-22] MEDS ORDERED: GLYCOPYRROLATE 0.2 MG/ML VIAL IV PRN (11:24)
--- NOTE | 2022-12-22 11:25 | Radiation OncologyConsultation ---
Date of Consultation December 22, 2022 Assessment & Plan (1) Small cell lung cancer: Plan Assessment: Ms. Elizabeth is a 77-year-old female who presents with metastatic small cell carcinoma. The patient did receive a course of palliative external beam radiation therapy to the lumbar spine and pelvis (3000 cGy, 10 fractions, 10/05/2022). The patient has subsequently received carboplatin etoposide chemotherapy under the supervision of Dr. Hogan. More recently, the patient was admitted to the hospital due to a fall and inability to ambulate secondary to pain involving her lower pelvis. The patient has been seen by palliative care medicine and the patient states that she would be willing to consider palliative radiation therapy and then proceed on hospice. I am now seeing the patient in consultation to discuss the role of radiation therapy. Recommendation: Palliative external beam radiation therapy to lower pelvis. Single fraction. 8 Gy x 1. Patient will then proceed to go to comfort care/hospice. Plan: 1. CT simulation for treatment planning to be scheduled for tomorrow. I have communicated with the hospitalist to ensure that there is adequate pain control when the patient comes down for simulation. 2. Plan for single fraction of radiation therapy either on Tuesday or on end of day on Tuesday. Will defer to locum radiation oncologist. 3. Continue pain management as per primary medical team and palliative care. 4. Patient and family encouraged to call us with any further questions or concerns. Rationale/Explanation of Treatment: I did explain the indications, alternatives, benefits, risks and side effects of external beam radiation therapy. I did explain the most common side effects including, but not limited to, skin erythema, skin breakdown, hyperpigmentation, telangiectasia, wound complications, perianal fistula development, fistula formation, bowel obstruction, bowel perforation, vaginal dryness, vaginal stenosis, dyspareunia, dysuria, increased urinary frequency, urgency, diarrhea, constipation, melena, hematochezia, hematuria, radiation cystitis, radiation proctitis, fatigue, decreased blood counts, wound complications from surgery, urinary incontinence, rectal incontinence, secondary malignancy development. I did explain the procedures and daily process of radiation therapy. I have explained to the patient that there is an increased risk of overlap from the previous course of radiation therapy and the current course of radiation therapy which can increase the risk of all acute and late side effects of radiation therapy. The patient had multiple questions which were answered to her full satisfaction. Thank you for allowing us to participate in the care of this patient. This chart was completed in part utilizing [employer]ognition PRO Speech Voice Recognition software. Attempts were made to minimize the grammatical errors, random word insertions, pronoun errors and incomplete sentences. Any formal questions or concerns about the content, text or information contained within the body of this dictation should be directly addressed to the provider for clarification. Ana Romero MD Department of Radiation Oncology [facility] History of Present Illness Attending Physician: Gelacio Alvarado MD History of Present Illness Development of low back pain approximately 6 weeks ago. This is steadily increased. Pain radiates towards the left hip and thigh. She gives a pain level of 6-7. With movement the pain will increase to 8. She has seen her primary care provider who ordered x-rays. 08/17/2022. X-ray of the left hip and pelvis. No acute fracture within the pelvis or hips. Mild bilateral hip osteoarthritis. 08/17/2022. CT of the abdomen and pelvis. Numerous ring-enhancing hypodense lesions in the liver are concerning for metastatic disease in this patient status post hemicolectomy. No evidence of diverticulitis. There is nodularity of the adrenal glands bilaterally, nonspecific. Thickening of gastric wall may be secondary to undistended, clinical correlation for gastritis is recommended. Lytic lesion arising from the right aspect of the L5 vertebral body with an associated soft tissue mass and pathologic fracture. 08/17/2022. With these findings she was advised by the primary care provider to report to the emergency room for control of pain and further evaluation to determine source of metastatic disease. 08/18/2022. CT chest. 1. Right upper lobe mass consistent with central bronchogenic carcinoma which occludes the right upper lobe bronchus and results in subtotal right upper lobe collapse. Mediastinal involvement which results in moderate SVC narrowing due to invasion. Pulmonary consultation is recommended. 2. Associated jolene, hepatic, adrenal and skeletal metastases, as detailed above. 3. Emphysema. 4. Trace right pleural effusion. 08/18/2022. MRI cervical spine. 1. Multiple scattered metastatic lesions seen throughout the cervical spine. No pathologic fractures or epidural extension at this time. 2. Partial visualization of the patient's known right upper lobe mass. 08/18/2022. MRI thoracic spine. 1. Multiple scattered metastatic lesions seen throughout the thoracic spine. No pathologic fractures or epidural involvement at this time. 2. Partial visualization of the patient's known right upper lobe mass and hepatic lesions. 08/18/2022. MRI lumbar spine. 1. Extensive multifocal marrow replacement consistent with metastatic disease. L4 and L5 pathologic fractures with mild loss of height. Possible minimal epidural extension of tumor at the L4 and L5 levels, as described above. Post contrast images compromised by motion artifact. No large epidural component. 2. Severe central canal stenosis at L4-L5 due to facet arthrosis, ligamentous hypertrophy and anterolisthesis with uncovering of the disc. Mild to moderate central canal stenosis at L3-L4. 3. Multilevel neural femoral stenosis, as above. 08/19/2022. Liver biopsy ultrasound. Metastatic small cell carcinoma. 08/19/2022. Palliative care consultation. 09/15/2022. Medical oncology follow-up note by Dr. Hogan. Await results from tissue diagnosis. Chemotherapy and/or radiation therapy may be needed. 09/20/2022 - 10/05/2022. Palliative external beam radiation therapy to lumbar spine and sacrum. 3000 cGy. 10 fractions. 10/2022 to 12/2022. Patient receiving systemic chemotherapy under the supervision of Dr. Hogan. 12/21/2022. Patient admitted to hospital. Fall. Patient having significant lower pelvic pain. He is having difficulty ambulating. Requires pain medication. 12/21/2021. Hip and pelvis x-ray. IMPRESSION: 1. Nondisplaced fracture of the left sacral ala. 2. Nondisplaced fracture of the left inferior pubic ring. 3. A left hip arthroplasty is in near anatomic alignment. 12/21/2022. CT of abdomen/pelvis. IMPRESSION: 1. Numerous hepatic masses and ill-defined osteoblastic lesions with pathologic fractures are again seen. 2. No acute abnormality is seen to explain lower abdominal pain. There is a large rectal stool ball without evidence of inspissation or wall thickening to suggest stercoral colitis. 3. Cholelithiasis without cholecystitis. 12/22/2022. Patient's case discussed with Dr. Hogan who recommended consideration for radiation oncology and orthopedic surgery consultations. Dr. Hogan expressed concern regarding patient's ability to ambulate and further receive systemic chemotherapy. 12/22/2022. Palliative care consultation with Dr. Shaw. Patient would like to receive palliative radiation therapy and then proceed to hospice. Allergies Allergy/AdvReac Type Severity Reaction Status Date / Time No Known Allergies Allergy Verified 12/21/22 15:19 Home Medications Medication Instructions Recorded Confirmed Type omeprazole 20 mg capsule,delayed 20 mg PO QAM #90 caps 10/21/21 12/21/22 Rx release allopurinol 300 mg tablet 300 mg PO HS #30 tabs 08/27/22 12/21/22 Rx amiodarone 200 mg tablet 200 mg PO BID #60 tabs 08/27/22 12/21/22 Rx levalbuterol tartrate 45 2 puff inhalation Q6H PRN 08/28/22 12/21/22 Rx mcg/actuation aerosol inhaler cough/wheeze/shortness of breath (Xopenex HFA) #1 g furosemide 20 mg tablet (Lasix) 10 mg PO QAM 09/27/22 12/21/22 History potassium chloride 10 mEq 10 meq PO BID #30 tabs 10/09/22 12/21/22 Rx tablet,extended release(part/cryst) calcium carbonate 200 mg calcium 1,000 mg PO Q6H PRN Gi Upset 10/27/22 12/21/22 History (500 mg) chewable tablet (Calcium Antacid) ondansetron 4 mg disintegrating 4 mg PO Q6H PRN Nausea 10/28/22 12/21/22 History tablet acetaminophen 325 mg tablet 650 mg PO Q6 PRN Fever 11/22/22 12/21/22 History (Tylenol) ascorbic acid (vitamin C) 500 mg 1,000 mg PO DAILY 11/22/22 12/21/22 History tablet (Vitamin C) buspirone 5 mg tablet 5 mg PO BID 11/22/22 12/21/22 History mirtazapine 15 mg tablet 15 mg PO HS 11/22/22 12/21/22 History polyethylene glycol 3350 17 17 g PO DAILY PRN Constipation 11/22/22 12/21/22 History gram/dose oral powder (Miralax) polysaccharide iron complex 150 mg 150 mg PO DAILY 11/22/22 12/21/22 History iron capsule (Ferrex) diclofenac sodium 1 % topical gel 2 g topical BID PRN Pain 11/23/22 12/21/22 History lorazepam 0.5 mg tablet (Ativan) 0.5 mg PO Q6 PRN Anxiety #10 tabs 11/25/22 12/21/22 Rx magnesium oxide 400 mg (241.3 mg 400 mg PO QAM #30 tabs 11/25/22 12/21/22 Rx magnesium) tablet oxycodone 5 mg tablet 5 mg PO Q4H PRN Pain (Scale score 11/25/22 12/21/22 Rx 5-10) #10 tabs sennosides 8.6 mg-docusate sodium 1 tab PO HS #30 tabs 11/25/22 12/21/22 Rx 50 mg tablet (Senokot-S) fentanyl 50 mcg/hr transdermal 50 mcg topical Q72H 12/21/22 12/21/22 History patch metformin 500 mg tablet,extended 500 mg PO BID 12/21/22 12/21/22 History release 24 hr sodium chloride 1,000 mg soluble 1,000 mg PO DAILY 12/21/22 12/21/22 History tablet Patient History Medical History (Updated 12/21/22 @ 18:15 by Chandra Storm PA-C) Alcohol intoxication Blood loss Cancer related pain Cornea abrasion Dislocation, hip closed History of cigarette smoking Hyperlipidemia Hypertension Hyponatremia Hypotension Liver lesion Metastatic cancer Widespread Stage IV Met Ca likely lung primary, bx needed, 08/19/22 Open tibial fracture Palliative care encounter Pathologic lumbar vertebral fracture Sensorineural hearing loss of both ears Small cell lung cancer SVT (supraventricular tachycardia) Type 2 diabetes mellitus Surgical History (Updated 11/23/22 @ 06:53 by Toy Flores MD) History of ankle surgery broken ankle-2014 at [facility] History of appendectomy History of hemicolectomy January 2016--[facility] [place] History of left hip hemiarthroplasty History of tonsillectomy History of tubal ligation Port-A-Cath in place (08/24/22) Aport Placement(Left) - Edwin Roa DO, FACS Family History Sister Primary adenocarcinoma of vagina Father Asthma Hypertension Macular degeneration Pulmonary embolism Mother Emphysema lung Brother Macular degeneration Denies family history of Ovarian cancer Prostate cancer Myocardial infarction Breast cancer Colorectal cancer Social History Smoking Status: Former smoker Tobacco Type: Cigarettes packs per day: 2; Cigarettes Per Day: 2 packs; Second Hand Exposure: No; Hx Alcohol Use: No Hx Substance Use: No Preferred Language: Samoan Communication Ability: Effective Visual Impairment: No Limitations Hearing Ability: Normal Containers Sales Representative Required: No Beliefs That Will Affect Care: None marital status: Current Living Situation: Spouse Current Living Situation Comment: Home with current occupational status: retired How many Children do You have: 2 Feels Safe at Home: Yes Childhood Exposure to Second-Hand Smoke: Yes caffeine: Yes (coffee 4 cups a day ) Dental Care, Regularly: Yes Physical Activity Frequency: Daily Physical Activity Frequency Comment: bicycle Seatbelt Use: always Sunscreen Use: Yes Assistive Devices: Cane, Walker and Wheelchair Physical Exam Physical Exam: Patient unable to ambulate. Constitutional: WD/WN, vitals as above Musculoskeletal: Tenderness to palpation involving the lower pelvis. Psychiatric: A+Ox3, euthymic affect
[2022-12-22] MEDS: fentaNYL 12 MCG/HR TDSY TD SCH (11:44)
[2022-12-22] MEDS: fentaNYL 50 MCG/HR TDSY TD SCH (11:44)
[2022-12-22] MEDS: LORazepam 0.5 MG TAB PO PRN (13:21)
--- NOTE | 2022-12-22 14:34 | Hospitalist Progress Note ---
Date of Service December 22, 2022 Assessment & Plan (1) Fall: Plan: Supportive care. OT and PT assessments requested. She does have a left inferior pubic ramus fracture and a left sacral alar fracture from falling. Orthopedic consultation appreciated. No surgical intervention indicated at this time. Pain control measures. Family believes she needs placement at this time. CT of the head was negative for acute changes compared to her MRI of the brain on 08/23/22. CT of the abd/pelvis and xray of the hips show Nondisplaced fractures of the left inferior pubic ring and left sacral ala, no acute trauma to the left hip replacement (2) Hyponatremia: Plan: Mild. Asymptomatic. No intervention necessary at this time besides fluid restriction. Serial labs. Known SIADH (3) Cancer related pain: Plan: From bone mets. Palliative care and radiation oncology consultations appreciated. Radiation treatments to bone mets will be started shortly. Severe low back pain from her known mets and with known L1 and L4 compression fractures . Continue fentanyl patch and prn Oxycodone as prescribed for home use. 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 [place] [facility] [place] missed her last chemotherapy treatment as she was admitted here for treatment of left hip SHERWIN dislocation . CT of the abd/pelvis now showing progression of her liver mets compared to last CT in October. Palliative care has seen the patient and she has opted for comfort care measures only. She has agreed to radiation treatments for the bone pain. (5) IVAN (acute kidney injury): Plan: Mild on admission. IV fluids. Monitor intake and output. Serial labs. Hold lasix . Avoid nephrotoxic agents (6) Hypertension: Plan: Stable. Continue current medical management (7) Type 2 diabetes mellitus: Plan: Has recently been off metformin and controlling BSG with diet. Last A1C in September of 2022 was 6.9 . Sliding scale coverage as needed (8) SVT (supraventricular tachycardia): Plan: Stable . Continue amiodarone (9) Elevated LFTs: Plan: Due to metastatic disease. No intervention at this time. (10) UTI (urinary tract infection): Plan: Patient has been experiencing increased urinary frequency. UA on admission shows trace leukocyte esterase, > 30 WBC's. Urine culture results pending. Continue Rocephin for now, day 2 (11) Constipation: Plan: noted to have a large rectal stool burden without signs of obstruction or stercoral colitis . Continue bowel regimen. Plan She has opted for comfort care. Anticipate eventual discharge to SNF facility with hospice Admission and Anticipated Discharge Date Admission Date: December 21, 2022 Subjective Alert and oriented. No distress. Case discussed with palliative care and radiation oncology. She now is comfort care only but will have radiation treatments to the bone mets for pain control. Review of Systems Review of Systems: Constitutional-no fever or chills ENT-no blurred vision, no double vision, no epistaxis, no sore throat Respiratory-no cough, no wheezing, no shortness of breath Cardiac-no palpitations, no chest pain, no syncope GI-no nausea, vomiting, diarrhea, melena, hematochezia -no urinary retention, no urinary incontinence, no dysuria, no hematuria Musculoskeletal-some bone pain noted at metastatic sites Skin-no bruising, no rashes, no pruritus. Hair loss from chemotherapy noted Neuro-no isolated weakness, no paresthesia, no weakness Psych-no depression, no anxiety Physical Exam Physical Exam: General-alert and oriented x3, no fevers, no chills HEENT-head atraumatic and normocephalic, pupils equal and reactive to light, extraocular muscles intact Neck-no lymphadenopathy or thyromegaly, trachea midline Chest-clear to auscultation percussion. No rales wheezing or rhonchi Cardiac-regular rate and rhythm, normal S1 and S2 Abdomen-normal bowel sounds, nontender, no hepatosplenomegaly Extremities-no cyanosis, clubbing, or edema Neuro-cranial nerves II through XII intact, motor and sensory function within normal limits, strength symmetrical , no focal deficits Psych-normal affect, normal mood Results & Data Results & Data ([facility]) Vital Signs (Past 12 Hours) Vital Signs Temp Pulse Pulse Resp BP Pulse Ox O2 Del Method 12/22/22 11:15 64 18 89/53 L 97 Room Air 12/22/22 11:01 77 18 96 Room Air 12/22/22 10:00 81 12/22/22 07:43 36.2 C L 80 16 96/59 L 95 Room Air 12/22/22 07:07 76 18 95 Room Air 12/22/22 03:04 36.4 C L 75 18 100/61 93 Room Air Laboratory Results 12/22/22 02:21 12/22/22 02:21 PG Care Time/CCT Total # of Minutes Spent Total Time Spent with Patient: Total time spent is greater than 50% in coordination of care (as documented) at patient's floor/unit and/or counseling patient: Coding Level of Care Code 02774 SUB INP/OBS CARE 3/50MIN Diagnoses Fall W19.XXXA Encounter type: initial encounter Hyponatremia E87.1 Cancer related pain G89.3 Small cell lung cancer C34.90 IVAN (acute kidney injury) N17.9 Hypertension I10 Type 2 diabetes mellitus E11.9 SVT (supraventricular tachycardia) I47.1 Elevated LFTs R79.89 UTI (urinary tract infection) N39.0 Constipation K59.00 (1) Fall Encounter type: initial encounter Qualified Code(s): W19.XXXA - Unspecified fall, initial encounter
[2022-12-22] MEDS: oxyCODONE HCL IR 5 MG TAB (IMMEDIATE RELEASE) PO PRN ×2 (16:13→20:30)
[2022-12-22] MEDS: LORazepam 2 MG/1 ML VIAL IV PRN (17:57)
[2022-12-22] MEDS: cefTRIAXone SODIUM 2,000 MG in DEXTROSE 5% 50 ML IV SCH (19:24)
[2022-12-22] MEDS: MIRTAZAPINE TAB 15 MG TAB PO SCH (20:29)
[2022-12-22] MEDS: DOCUSATE SODIUM/SENNA 50/8.6MG TAB PO SCH (20:29)
--- NOTE | 2022-12-22 21:39 | Consultation ---
Date of Consultation December 22, 2022 Assessment & Plan (1) Small cell lung cancer: Presented with metastatic SCLC in August who was able to get through her first 2 cycles of combination etoposide/carboplatinum reasonably well but unfortunately with interval palliative radiation had developed significant GI issues that delayed cycle 3 until early October. Thereafter had a succession of initial hip fracture and then reinjury that have dramatically undermined her performance status and led to indefinite delay of cycle 4. This far out from cycle 3, it is not likely that an additional cycle of chemotherapy would be at all helpful especially in the context of what already appears to be probable progression in the chest and fairly definite progression in the liver. 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 I think she seems realistic about her current situation. Specific limiting issues are the abdominal/pelvic pain that does not have a particular visceral correlate and rather makes me wonder whether the pathologic involvement of the pelvis itself is at least partially to blame. Concern is that with that increasing discomfort she has been much less mobile and probably lost a significant amount of her muscle integrity. Even if we can stabilize the pain, it is not clear how well she might recover that muscle function. After some electronic multidisciplinary conversation today, radiation oncology has kindly consented to consider a single fraction palliative dose to the pelvis. Palliative care service can help us to optimize for pharmacologic management and with that might hope to at least see improvement in her pain control. Whether that is enough to allow some physical therapy and mandaen of mobility is unfortunately not at all clear. Patient seems realistic about the possible need for long-term placement and the potential that she may not benefit from any more oncologic intervention. If she were to have a significant improvement in performance status, there might be the option to consider immune checkpoint inhibitor therapy or possibly some single agent subsequent line salvage treatments as she continues with reasonably stable renal and liver function. In the absence that improvement, however, she will be better served by a more pure palliative focus with the expected transition to hospice services in time Plan 1. Immediate focuses on pain control combining pain any radiation to the pelvis with optimization of pharmacologic management in collaboration with the [facility] care service 2. As that pain is stabilized, will need to explore whether she will have any benefit from physical therapy/rehab 3. Only if she is clearly able to regain reasonable mobility and performance status with there be any consideration for further specific medical oncology treatment 4. Patient is quite realistic about her overall prognosis and engaging in constructive discussions about potential need for long-term placement and the transition to a more pure palliative care and ultimately hospice approach History of Present Illness Reason for Consultation: Patient with metastatic small cell lung cancer admitted after inability to support her weight at home and with worsening pain Attending Physician: Gelacio Alvarado MD History of Present Illness Patient with metastatic small cell lung cancer diagnosed August,. She received her initial cycle of chemotherapy while hospitalized and then a second cycle as an outpatient at the end of that month. Interval palliative radiation unfortunately was associated with diarrhea and dehydration delaying her third cycle until early October. Prior to being able to proceed onto the fourth cycle, she fell suffering a traumatic left hip fracture requiring a 10/29/2022 left hip hemiarthroplasty but unfortunately during recovery from that reinjured the area requiring a 11/23/2022 closed reduction. She describes that upon first going home she was somewhat ambulatory with a walker but had deteriorated in the 1 to 2 weeks prior to admission to the point of becoming too painful for even limited movement and at one point slipping to the floor with her and daughter unable to pick her up from there. She is admitted with severe mobility limitations and poorly controlled pain. Allergies Allergy/AdvReac Type Severity Reaction Status Date / Time No Known Allergies Allergy Verified 12/21/22 15:19 Home Medications Medication Instructions Recorded Confirmed Type omeprazole 20 mg capsule,delayed 20 mg PO QAM #90 caps 10/21/21 12/21/22 Rx release allopurinol 300 mg tablet 300 mg PO HS #30 tabs 08/27/22 12/21/22 Rx amiodarone 200 mg tablet 200 mg PO BID #60 tabs 08/27/22 12/21/22 Rx levalbuterol tartrate 45 2 puff inhalation Q6H PRN 08/28/22 12/21/22 Rx mcg/actuation aerosol inhaler cough/wheeze/shortness of breath (Xopenex HFA) #1 g furosemide 20 mg tablet (Lasix) 10 mg PO QAM 09/27/22 12/21/22 History potassium chloride 10 mEq 10 meq PO BID #30 tabs 10/09/22 12/21/22 Rx tablet,extended release(part/cryst) calcium carbonate 200 mg calcium 1,000 mg PO Q6H PRN Gi Upset 10/27/22 12/21/22 History (500 mg) chewable tablet (Calcium Antacid) ondansetron 4 mg disintegrating 4 mg PO Q6H PRN Nausea 10/28/22 12/21/22 History tablet acetaminophen 325 mg tablet 650 mg PO Q6 PRN Fever 11/22/22 12/21/22 History (Tylenol) ascorbic acid (vitamin C) 500 mg 1,000 mg PO DAILY 11/22/22 12/21/22 History tablet (Vitamin C) buspirone 5 mg tablet 5 mg PO BID 11/22/22 12/21/22 History mirtazapine 15 mg tablet 15 mg PO HS 11/22/22 12/21/22 History polyethylene glycol 3350 17 17 g PO DAILY PRN Constipation 11/22/22 12/21/22 History gram/dose oral powder (Miralax) polysaccharide iron complex 150 mg 150 mg PO DAILY 11/22/22 12/21/22 History iron capsule (Ferrex) diclofenac sodium 1 % topical gel 2 g topical BID PRN Pain 11/23/22 12/21/22 History lorazepam 0.5 mg tablet (Ativan) 0.5 mg PO Q6 PRN Anxiety #10 tabs 11/25/22 0 12/21/22 Rx magnesium oxide 400 mg (241.3 mg 400 mg PO QAM #30 tabs 11/25/22 12/21/22 Rx magnesium) tablet oxycodone 5 mg tablet 5 mg PO Q4H PRN Pain (Scale score 11/25/22 12/21/22 Rx 5-10) #10 tabs sennosides 8.6 mg-docusate sodium 1 tab PO HS #30 tabs 11/25/22 12/21/22 Rx 50 mg tablet (Senokot-S) fentanyl 50 mcg/hr transdermal 50 mcg topical Q72H 12/21/22 12/21/22 History patch metformin 500 mg tablet,extended 500 mg PO BID 12/21/22 12/21/22 History release 24 hr sodium chloride 1,000 mg soluble 1,000 mg PO DAILY 12/21/22 12/21/22 History tablet Patient History Medical History (Updated 12/22/22 @ 12:56 by Ca Shaw, MOO) Alcohol intoxication Blood loss Cancer related pain Cornea abrasion Dislocation, hip closed History of cigarette smoking Hyperlipidemia Hypertension Hyponatremia Hypotension Liver lesion Metastatic cancer Widespread Stage IV Met Ca likely lung primary, bx needed, 08/19/22 Open tibial fracture Palliative care by specialist Palliative care encounter Pathologic lumbar vertebral fracture Sensorineural hearing loss of both ears Small cell lung cancer SVT (supraventricular tachycardia) Type 2 diabetes mellitus Surgical History (Updated 11/23/22 @ 06:53 by Toy Flores MD) History of ankle surgery broken ankle-2014 at [facility] [address] History of appendectomy History of hemicolectomy January 2016--[facility] History of left hip hemiarthroplasty History of tonsillectomy History of tubal ligation Port-A-Cath in place (08/24/22) Aport Placement(Left) - Edwin Roa DO, FACS Family History Sister Primary adenocarcinoma of vagina Father Asthma Hypertension Macular degeneration Pulmonary embolism Mother Emphysema lung Brother Macular degeneration Denies family history of Ovarian cancer Prostate cancer Myocardial infarction Breast cancer Colorectal cancer Social History Smoking Status: Former smoker Tobacco Type: Cigarettes packs per day: 2; Cigarettes Per Day: 2 packs; Second Hand Exposure: No; Hx Alcohol Use: No Hx Substance Use: No Preferred Language: Yi Communication Ability: Effective Visual Impairment: No Limitations Hearing Ability: Normal Scoreboard Operator Required: No Beliefs That Will Affect Care: None marital status: Current Living Situation: Spouse Current Living Situation Comment: Home with current occupational status: retired How many Children do You have: 2 Feels Safe at Home: Yes Childhood Exposure to Second-Hand Smoke: Yes caffeine: Yes (coffee 4 cups a day ) Dental Care, Regularly: Yes Physical Activity Frequency: Daily Physical Activity Frequency Comment: bicycle Seatbelt Use: always Sunscreen Use: Yes Assistive Devices: Bedside Commode, Walker and Wheelchair Physical Exam Physical Exam: Moderately decreased blood pressure about not tachycardic and overall with reasonably stable vital signs. She is alert, seems cognitively completely intact and capable of good medical decision-making. Lung heart and abdominal examination seems stable. Results & Data ([facility]) Vital Signs (Past 12 Hours) Vital Signs Pulse Pulse Resp BP Pulse Ox O2 Del Method 12/22/22 20:35 Room Air 12/22/22 12:30 Room Air 12/22/22 11:15 64 18 89/53 L 97 Room Air 12/22/22 11:01 77 18 96 Room Air 12/22/22 10:00 81 Laboratory Results Laboratory Results - last 24 hr 12/21/22 12/22/22 12/22/22 21:46 02:21 02:21 WBC 8.84 RBC 2.79 L Hgb 9.2 L Hct 27.0 L MCV 96.8 MCH 33.0 MCHC 34.1 RDW Std Deviation 58.7 H RDW Coeff of Charlie 16.4 H Plt Count 361 MPV 9.1 L Immature Gran % (Auto) 1.7 Neut % (Auto) 73.2 Lymph % (Auto) 13.3 Ward % (Auto) 9.6 Eos % (Auto) 1.6 Baso % (Auto) 0.6 Neut # (Auto) 6.47 Lymph # (Auto) 1.18 L Ward # (Auto) 0.85 H Eos # (Auto) 0.14 Baso # (Auto) 0.05 Immature Gran # (Auto) 0.15 Sodium 130 L Potassium 4.0 Chloride 98 Carbon Dioxide 29 Anion Gap 3 BUN 17 Creatinine 0.75 Est Cr Clr Drug Dosing 55.3 Est GFR ( Amer) 87.9 Est GFR (Non-Af Amer) 75.8 BUN/Creatinine Ratio 22.7 H Glucose 87 POC Glucose 71 Calcium 8.4 L Magnesium 2.0 Total Bilirubin 0.4 AST 45 H ALT 24 Alkaline Phosphatase 298 H Total Protein 4.9 L Albumin 2.6 L Globulin 2.3 L Albumin/Globulin Ratio 1.1 12/22/22 12/22/22 12/22/22 03:29 05:48 07:54 WBC RBC Hgb Hct MCV MCH MCHC RDW Std Deviation RDW Coeff of Charlie Plt Count MPV Immature Gran % (Auto) Neut % (Auto) Lymph % (Auto) Ward % (Auto) Eos % (Auto) Baso % (Auto) Neut # (Auto) Lymph # (Auto) Ward # (Auto) Eos # (Auto) Baso # (Auto) Immature Gran # (Auto) Sodium Potassium Chloride Carbon Dioxide Anion Gap BUN Creatinine Est Cr Clr Drug Dosing Est GFR ( Amer) Est GFR (Non-Af Amer) BUN/Creatinine Ratio Glucose POC Glucose 86 79 113 H Calcium Magnesium Total Bilirubin AST ALT Alkaline Phosphatase Total Protein Albumin Globulin Albumin/Globulin Ratio 12/22/22 11:44 WBC RBC Hgb Hct MCV MCH MCHC RDW Std Deviation RDW Coeff of Charlie Plt Count MPV Immature Gran % (Auto) Neut % (Auto) Lymph % (Auto) Ward % (Auto) Eos % (Auto) Baso % (Auto) Neut # (Auto) Lymph # (Auto) Ward # (Auto) Eos # (Auto) Baso # (Auto) Immature Gran # (Auto) Sodium Potassium Chloride Carbon Dioxide Anion Gap BUN Creatinine Est Cr Clr Drug Dosing Est GFR ( Amer) Est GFR (Non-Af Amer) BUN/Creatinine Ratio Glucose POC Glucose 105 H Calcium Magnesium Total Bilirubin AST ALT Alkaline Phosphatase Total Protein Albumin Globulin Albumin/Globulin Ratio Diagnostic Findings Chest X-Ray 12/21/22 14:05 SINGLE VIEW CHEST CLINICAL HISTORY: Generalized weakness. FINDINGS: 2 AP, portable, semierect chest radiographs are compared to study dated 10/27/2022 and correlated with chest CT dated 10/08/2022. The examination is degraded by portable technique and patient rotation. A left internal jugular central venous infusion port is unchanged in position. The heart is enlarged. The pulmonary vasculature is noncongested. The mitral annulus is densely calcified. Emphysema and chronic interstitial thickening is similar to previous. A right upper lobe mass lesion is likely unchanged. There is complete atelectasis of the right upper lobe which is new from previous. No large pleural effusion or pneumothorax is identified. The skeletal structures are osteopenic. The bony thorax is grossly intact. IMPRESSION: 1. Cardiomegaly and emphysema. 2. There is complete atelectasis of the right upper lobe which is new from previous. 3. A right upper lobe mass lesion is likely unchanged. This is not well assessed due to right upper lobe atelectasis. 4. Additional findings as above. ACT 112: Negative or not required by law. Electronically signed by: Yonatan Cooper M.D. 12/21/2022 5:19 PM Hip/Pelvis X-Ray 12/21/22 14:10 SINGLE VIEW PELVIS STUDY: 2 VIEWS LEFT HIP CLINICAL HISTORY: Fall. Pain. FINDINGS: An AP, portable, supine view of the pelvis with AP and frog-leg views of the left hip are compared to study dated 12/15/2022 and correlated with pelvic CT performed the same day 12/21/2022. The skeletal structures are heterogeneously osteopenic. A left hip arthroplasty is in near anatomic alignment. There is a nondisplaced fracture of the left inferior pubic ring, as well as a nondisplaced fracture of the left sacral ala. These were better seen on today's CT scan. No additional acute fracture is identified. Moderate arthritic change is seen in the right hip. Degenerative sclerosis is noted in the sacroiliac joints. Enthesophytes arise from the anterior superior iliac spines. A large calcified fibroid is noted in the pelvis. Excreted IV contrast is present within the ureters. IMPRESSION: 1. Nondisplaced fracture of the left sacral ala. 2. Nondisplaced fracture of the left inferior pubic ring. 3. A left hip arthroplasty is in near anatomic alignment. Electronically signed by: Yonatan Cooper M.D. 12/21/2022 5:27 PM Abdomen/Pelvis CT 12/21/22 14:11 CT abd pelvis IV con only CLINICAL HISTORY: lower abd pain TECHNIQUE: Helical axial images of the abdomen and pelvis were obtained and displayed. Automated dose lowering techniques and/or adjustment according to pat ient size were utilized for this exam. This exam was performed with intravenous contrast. CT DOSE: 398.37 mGy.cm COMPARISON: Comparison is made to CT abdomen pelvis 11/01/2022 FINDINGS: Lower chest: Diffuse interstitial lung disease is seen. Mitral annular calcifications are noted. Liver: Numerous hepatic masses are seen. The index lesion in the dome of the right liver measures 72 mm, increased from prior exam where it measured 58 mm. Remaining lesions also appear increased in size. Gallbladder and biliary tree: Cholelithiasis is seen without evidence of cholecystitis. No intra- or extrahepatic biliary ductal dilation. Pancreas: Unremarkable, no focal lesions. Spleen: Subcentimeter hypodensities are seen in the spleen. Adrenals: Adrenal gland thickening is again seen. Kidneys and ureters: Mild pelviectasis is seen without evidence of obstruction. Bladder: Unremarkable. Reproductive organs: Calcified fibroid is noted. Bowel: Diverticulosis is seen without evidence of diverticulitis. Prominent stool ball is seen without evidence of wall thickening. Lymph nodes Retroperitoneal: Unremarkable. Pelvic: Unremarkable. Mesenteric: Unremarkable. Peritoneum: Normal. Vessels: Unremarkable. Abdominal wall: Bilateral fat-containing inguinal hernias are seen. Bones: Ill-defined sclerosis is seen with compression deformities at L1 and L4. There is a left hip total arthroplasty. Healed left rib fractures are seen. IMPRESSION: 1. Numerous hepatic masses and ill-defined osteoblastic lesions with pathologic fractures are again seen. 2. No acute abnormality is seen to explain lower abdominal pain. There is a large rectal stool ball without evidence of inspissation or wall thickening to suggest stercoral colitis. 3. Cholelithiasis without cholecystitis. ACT 112: Negative or not required by law. Electronically signed by: Edison Montana M.D. 12/21/2022 5:[address] 12/21/22 14:11 CT head/brain wo con CLINICAL HISTORY: fall, dizziness Technique: Contiguous axial CT images of the head were acquired from the base of the skull to the vertex without intravenous contrast administration. Images were viewed in brain, subdural and bone windows. Automated dose lowering techniques and/or adjustment according to patient size were utilized for this exam. Comparison: Comparison is made to MRI brain 08/23/2022 Findings: Areas of decreased attenuation are present in the periventricular and subcortical white matter bilaterally consistent with small vessel ischemic disease. Generalized cerebral atrophy with commensurate enlargement of the ventricles, sulci, and cisterns is also present. There is no acute intracranial hemorrhage or evidence of acute territorial infarction. No shift of the midline structures, mass effect, or extra-axial abnormalities are shown. Atherosclerotic calcifications are present in the intracranial segments of the internal carotid arteries. Imaged portions of the paranasal sinuses and mastoid air cells are clear. The orbits appear normal. A few calvarial lesions are seen. Impression: A few calvarial lesions are seen. Previously noted enhancing foci are not well seen on today's exam. ACT 112: Negative or not required by law. Electronically signed by: Edison Montana M.D. 12/21/2022 4:44 PM PG Care Time/CCT Total # of Minutes Spent Total Time Spent with Patient: Total time spent is greater than 50% in coordination of care (as documented) at patient's floor/unit and/or counseling patient: Coding Level of Care Code 41214 IN/OBS CONSULT LVL 3,45M Diagnoses Small cell lung cancer C34.90
[2022-12-23] MEDS: ACETAMINOPHEN 325 MG TAB PO SCH ×4 (00:01→19:33)
[2022-12-23] MEDS: CHECK fentaNYL PATCH PLACEMENT SCH ×3 (00:01→16:10)
[2022-12-23] MEDS: oxyCODONE HCL IR 5 MG TAB (IMMEDIATE RELEASE) PO PRN ×2 (02:29→15:49)
[2022-12-23] MEDS: LORazepam 0.5 MG TAB PO PRN ×2 (02:29→14:23)
[2022-12-23] MEDS: LORazepam 2 MG/1 ML VIAL IV PRN ×2 (07:46→17:11)
[2022-12-23] MEDS: busPIRone 5 MG TAB PO SCH ×2 (09:29→19:31)
[2022-12-23] MEDS: PANTOprazole 40 MG TAB PO SCH (09:30)
--- NOTE | 2022-12-23 10:04 | Palliative Care Progress Note ---
Date of Service December 23, 2022 Assessment & Plan (1) Palliative care by specialist: Plan: Although Lore was appropriate with me, additional staff report she has been alternatingly belligerent or inconsistent in symptom reporting. She advised Restaurant Supervisor that pain was not well controlled because she is being refused pain meds even though she knows "that lady, Kiana, ordered them for me." She is struggling to have a BM as well, which perhaps is contributing. I will modify a bowel regimen for her. Suggest a flat plate of abdomen tomorrow to re assess. If no obstruction and no BM by tomorrow, consider Relistor for OIC. Will also begin a trial of low dose Decadron 4mg BID, reviewed with Dr Hogan. Some of these behavioral changes may be patient's latent personality and not cancer complication mediated changes. (2) Cancer related pain: Plan: No changes today (3) Pelvic ring fracture: (4) Falls frequently: (5) Lung cancer metastatic to bone: (6) Weakness: (7) Constipation: Plan Some mild confusion intermittently today. Also constipated, no BM despite sensation of needing to void/increased gas. I have modified bowel regimen and added bisacodyl 2 tabs PO QD to help evacuate the bowel. A Bisacodyl 10 mg suppository or Fleets Enema could be considered so long as she is NOT thrombocytopenic [< 50,000 platelets] or neutropenic [ANC < 500-1000]. Flat plate abdomen tomorrow if no BM, may need Relistor if she has no obstruction and still no BM. I have started Decadron 4mg BID. Awaiting RT prior to SNF dc for ?trial of rehab then comfort care. I believe it is unlikely that she will regain signif mobility: every dc home or to SNF has led to recurrent falls and readmission with declining PS. She does not want more cancer directed tx. She does want more symptom mgt/pain relief treatments to improve QOL. Psychosocial support and reassurance provided. Logotherapy and legacy review initiated. She continues to express worry about how her will manage when she is not there/she has been his caregiver and he has not been able to manage his needs without her. I asked Restaurant Supervisor to stop by today for additional support but Lore was irritable and did not allow him to extend his time with her, complaining that pain was not well managed. Ca Shaw DNP Clinical Director, Palliative Medicine Admission and Anticipated Discharge Date Admission Date: December 21, 2022 Subjective Patient seen in follow up, reports feeling more bloated/gas and sensation of BM but has not had a BM Denies n/v, no inc abd pain. Appetite Okay, taking PO without swallowing issues. Pain is better, anxiety signif better with improved Ativan dosing. She is pleased with plan of care for SNF and comfort care. She and dtr had more discussion last night, she is peaceful with her decision. Lore denies SOB or chest pain. She still feels tired and at times overwhelmed but this is better with improving her anxiety mgt. Review of Systems Review of Systems: All systems reviewed & are unremarkable except as noted in Subjective Physical Exam Physical Exam: Frail, elderly female, semireclined in bed. Appears uncomfortable. + Chemo related alopecia. + Bitemporal wasting. Pupils are equal, round and reactive to light. Extraocular movements are intact. Neck is supple and without any obvious JVD, stridor or thyromegaly. Her pharynx is pink, mucosa are slightly dry, and dentition is fair. There is mild use of accessory muscles with prolonged conversation or exertion from trying to reposition herself. Lung sounds are diminished overall with a few faint rhonchi. There is no audible wheeze. Heart tones are S1-S2, normal rhythm. Abdomen is soft, mildly distened and mildly tender to palpation, BS+; +generalized weakness throughout both upper and lower extremities. She is not able to reposition in bed without assistance. Her lower extremity weakness is more significant than her upper extremity weakness. She is awake and alert, interacting appropriately with this examiner, but fatigues easily and will sometimes drift off to sleep when there are longer pauses in our conversation. Her skin is pale and cool to touch. There is no overt clubbing or cyanosis noted. Results & Data ([facility]) Laboratory Results reviewed Diagnostic Findings reviewed PG Care Time/CCT Total # of Minutes Spent Total Time Spent: 75 Total Time Spent with Patient: Total time spent is greater than 50% in coordination of care (as documented) at patient's floor/unit and/or counseling patient: Coding [place] [address] SUB INP/OBS CARE 3/50MIN Patient Type Established History Comprehensive Exam Comprehensive Medical Decision Making High Complexity Diagnoses Palliative care by specialist Z51.5 Cancer related pain G89.3 Pelvic ring fracture S32.810A Falls frequently R29.6 Lung cancer metastatic to bone C34.90; C79.51 Weakness R53.1 Constipation K59.00
--- NOTE | 2022-12-23 14:10 | Orthopedic Progress Note ---
Date of Service December 23, 2022 Assessment & Plan (1) Pelvic ring fracture: Plan: Patient state that she does not need any further evaluation by orthopedics while she is inpatient. If complaints change or patient has other orthopedic issued, contact the clinic. Left inferior pubic rami fracture-nondisplaced. Left sacral bishop fracture- nondisplaced. -PT and OT. -She may weight-bear as tolerated on bilateral lower extremities with the assistance of walker for ambulation. -She may do full hip range of motion as tolerated on her right hip. Posterior hip precautions on the left hip due to the recent hemiarthroplasty and subsequent dislocation. -Ice as needed for pain or swelling. -Pain medication as per primary service. -Follow-up with Dr. Flores as scheduled in approximately 4 weeks. Will discuss findings with Dr. Flores. (2) History of left hip hemiarthroplasty: Plan: - Continue with ice and anti-inflammatories, and rehabilitation program, progressing to activities as tolerated. - Continue total hip precautions for another 4 weeks. - Continue pillow between knees when in bed and knee immobilizer with transfers and when out of bed. - Weight-bear as tolerated left lower extremity - Use walker at all times to assist with ambulation - Follow-up with Dr. Flores as scheduled in approximately 4 weeks. Admission and Anticipated Discharge Date Admission Date: December 21, 2022 Subjective 77-year-old female seen today after being admitted for a fall and suffering fractures to her left inferior pubic rami and sacral bishop. Patient states that her biggest concern today she is unable to move her bowels. She has been on the bedpan numerous times and is still having difficulty. She states that her hip feels fine. She denies chest pain, shortness of breath, fever, chills, sweats, numbness or tingling in either lower extremity. She also denies nausea, vom iting or difficulty voiding. Review of Systems Review of Systems: All systems reviewed & are unremarkable except as noted in Subjective Physical Exam Physical Exam: Left lower extremity:She is mildly tender with palpation of her left sacrum and also has mild tenderness with palpation of the left superior pubic rami and pubic symphysis. Patient is able to perform active straight leg raise test. She is able to easily extend her knee to 0 degrees and flex to 90 degrees actively without difficulty. She has no pain with passive hip flexion to 90 degrees or with passive internal or external hip rotation. Her surgical incision site is closed completely. There is no fluctuance. There is no erythema or ecchymosis. She tolerates logroll testing. She is neurovascularly intact. Results & Data ([facility]) Diagnostic Findings Laboratory Results WBC 8.84 K/ul (4.8-10.8) 12/22/22 02:21 RBC 2.79 M/uL (4.20-5.40) L 12/22/22 02:21 Hgb 9.2 g/dl (12.0-16.0) L 12/22/22 02:21 Hct 27.0 % (37.0-47.0) L 12/22/22 02:21 MCV 96.8 fL (80.0-100.0) 12/22/22 02:21 MCH 33.0 pg (25.0-34.0) 12/22/22 02:21 MCHC 34.1 g/dL (32.0-36.0) 12/22/22 02:21 RDW Std Deviation 58.7 fL (36.4-46.3) H 12/22/22 02:21 RDW Coeff of Charlie 16.4 % (11.5-14.5) H 12/22/22 02:21 Plt Count 361 K/uL (130-400) 12/22/22 02:21 MPV 9.1 fL (9.4-12.4) L 12/22/22 02:21 Immature Gran % (Auto) 1.7 % 12/22/22 02:21 Neut % (Auto) 73.2 % 12/22/22 02:21 Lymph % (Auto) 13.3 % 12/22/22 02:21 Meigs % (Auto) 9.6 % 12/22/22 02:21 Eos % (Auto) 1.6 % 12/22/22 02:21 Baso % (Auto) 0.6 % 12/22/22 02:21 Neut # (Auto) 6.47 K/uL (1.40-6.50) 12/22/22 02:21 Lymph # (Auto) 1.18 K/uL (1.2-3.4) L 12/22/22 02:21 Meigs # (Auto) 0.85 K/uL (0.11-0.59) H 12/22/22 02:21 Eos # (Auto) 0.14 K/uL (0-0.50) 12/22/22 02:21 Baso # (Auto) 0.05 K/uL (0-0.2) 12/22/22 02:21 Immature Gran # (Auto) 0.15 K/uL (0.01-0.20) 12/22/22 02:21 PT 11.0 Seconds (9.0-12.0) 12/21/22 13:38 INR 1.0 (0.9-1.1) 12/21/22 13:38 APTT 28.5 Seconds (21.0-31.0) 12/21/22 13:38 PTT Ratio 1.0 12/21/22 13:38 Sodium 130 mmol/L (136-145) L 12/22/22 02:21 Potassium 4.0 mmol/L (3.5-5.1) 12/22/22 02:21 Chloride 98 mmol/L (98-107) 12/22/22 02:21 Carbon Dioxide 29 mmol/L (21-32) 12/22/22 02:21 Anion Gap 3 (3-11) 12/22/22 02:21 BUN 17 mg/dl (6-23) 12/22/22 02:21 Creatinine 0.75 mg/dl (0.6-1.2) 12/22/22 02:21 Est Cr Clr Drug Dosing 55.3 ml/min 12/22/22 02:21 Est GFR ( Amer) 87.9 ml/min 12/22/22 02:21 Est GFR (Non-Af Amer) 75.8 ml/min 12/22/22 02:21 BUN/Creatinine Ratio 22.7 (10-20) H 12/22/22 02:21 Glucose 87 mg/dl (70-99(Fasting)) 12/22/22 02:21 POC Glucose 105 mg/dl (70-99) H 12/22/22 11:44 Lactate 0.9 mmol/L (0.4-2.0) 12/21/22 15:04 Calcium 8.4 mg/dl (8.5-10.1) L 12/22/22 02:21 Magnesium 2.0 mg/dl (1.7-2.4) 12/22/22 02:21 Total Bilirubin 0.4 mg/dl (0.2-1.0) 12/22/22 02:21 AST 45 U/L (13-39) H 12/22/22 02:21 ALT 24 U/L (7-52) 12/22/22 02:21 Alkaline Phosphatase 298 U/L (34-104) H 12/22/22 02:21 Troponin I High Sens 10.8 pg/ml (0-14) 12/21/22 13:38 Total Protein 4.9 gm/dl (6.0-8.3) L 12/22/22 02:21 Albumin 2.6 gm/dl (3.4-5.0) L 12/22/22 02:21 Globulin 2.3 gm/dl (2.5-4.0) L 12/22/22 02:21 Albumin/Globulin Ratio 1.1 (0.9-2) 12/22/22 02:21 Lipase 32 U/L (11-82) 12/21/22 13:38 Urine Color Yellow 12/21/22 17:13 Urine Appearance Clear (Clear) 12/21/22 17:13 Urine pH 6.5 (4.5-7.5) 12/21/22 17:13 Ur Specific [place] 1.013 (1.000-1.030) 12/21/22 17:13 Urine Protein 1+ (Negative) H 12/21/22 17:13 Urine Glucose (UA) Negative (Negative) 12/21/22 17:13 Urine Ketones Trace (Negative) H 12/21/22 17:13 Urine Blood Trace (Negative) H 12/21/22 17:13 Urine Nitrite Negative (Negative) 12/21/22 17:13 Urine Bilirubin Negative (Negative) 12/21/22 17:13 Urine Urobilinogen Negative (Negative) 12/21/22 17:13 Ur Leukocyte Esterase Trace (Negative) H 12/21/22 17:13 Urine WBC (Auto) >30 /hpf (0-5) H 12/21/22 17:13 Urine RBC (Auto) 5-10 /hpf (0-4) H 12/21/22 17:13 U Hyaline Cast (Auto) 0 /lpf (0-5) 12/21/22 17:13 U Epithel Cells (Auto) 20-30 /lpf (0-5) H 12/21/22 17:13 Urine Bacteria (Auto) Negative (Negative) 12/21/22 17:13 SARS-CoV-2 (PCR) NEGATIVE (Negative) 12/21/22 14:45 Blood Type O Positive 12/21/22 15:03 Antibody Screen NEGATIVE 12/21/22 15:03 Impressions Chest X-Ray 12/21/22 14:05 SINGLE VIEW CHEST CLINICAL HISTORY: Generalized weakness. FINDINGS: 2 AP, portable, semierect chest radiographs are compared to study dated 10/27/2022 and correlated with chest CT dated 10/08/2022. The examination is degraded by portable technique and patient rotation. A left internal jugular central venous infusion port is unchanged in position. The heart is enlarged. The pulmonary vasculature is noncongested. The mitral annulus is densely calcified. Emphysema and chronic interstitial thickening is similar to previous. A right upper lobe mass lesion is likely unchanged. There is complete atelectasis of the right upper lobe which is new from previous. No large pleural effusion or pneumothorax is identified. The skeletal structures are osteopenic. The bony thorax is grossly intact. IMPRESSION: 1. Cardiomegaly and emphysema. 2. There is complete atelectasis of the right upper lobe which is new from previous. 3. A right upper lobe mass lesion is likely unchanged. This is not well assessed due to right upper lobe atelectasis. 4. Additional findings as above. ACT 112: Negative or not required by law. Electronically signed by: Yonatan Cooper M.D. 12/21/2022 5:19 PM Hip/Pelvis X-Ray 12/21/22 14:10 SINGLE VIEW PELVIS STUDY: 2 VIEWS LEFT HIP CLINICAL HISTORY: Fall. Pain. FINDINGS: An AP, portable, supine view of the pelvis with AP and frog-leg views of the left hip are compared to study dated 12/15/2022 and correlated with pelvic CT performed the same day 12/21/2022. The skeletal structures are heterogeneously osteopenic. A left hip arthroplasty is in near anatomic alignment. There is a nondisplaced fracture of the left inferior pubic ring, as well as a nondisplaced fracture of the left sacral ala. These were better seen on today's CT scan. No additional acute fracture is identified. Moderate arthritic change is seen in the right hip. Degenerative sclerosis is noted in the sacroiliac joints. Enthesophytes arise from the anterior superior iliac spines. A large calcified fibroid is noted in the pelvis. Excreted IV contrast is present within the ureters. IMPRESSION: 1. Nondisplaced fracture of the left sacral ala. 2. Nondisplaced fracture of the left inferior pubic ring. 3. A left hip arthroplasty is in near anatomic alignment. Electronically signed by: Yonatan Cooper M.D. 12/21/2022 5:27 PM Abdomen/Pelvis CT 12/21/22 14:11 CT abd pelvis IV con only CLINICAL HISTORY: lower abd pain TECHNIQUE: Helical axial images of the abdomen and pelvis were obtained and displayed. Automated dose lowering techniques and/or adjustment according to patient size were utilized for this exam. This exam was performed with intravenous contrast. CT DOSE: 398.37 mGy.cm COMPARISON: Comparison is made to CT abdomen pelvis 11/01/2022 FINDINGS: Lower chest: Diffuse interstitial lung disease is seen. Mitral annular calcifications are noted. Liver: Numerous hepatic masses are seen. The index lesion in the dome of the right liver measures 72 mm, increased from prior exam where it measured 58 mm. Remaining lesions also appear increased in size. Gallbladder and biliary tree: Cholelithiasis is seen without evidence of cholecystitis. No intra- or extrahepatic biliary ductal dilation. Pancreas: Unremarkable, no focal lesions. Spleen: Subcentimeter hypodensities are seen in the spleen. Adrenals: Adrenal gland thickening is again seen. Kidneys and ureters: Mild pelviectasis is seen without evidence of obstruction. Bladder: Unremarkable. Reproductive organs: Calcified fibroid is noted. Bowel: Diverticulosis is seen without evidence of diverticulitis. Prominent stool ball is seen without evidence of wall thickening. Lymph nodes Retroperitoneal: Unremarkable. Pelvic: Unremarkable. Mesenteric: Unremarkable. Peritoneum: Normal. Vessels: Unremarkable. Abdominal wall: Bilateral fat-containing inguinal hernias are seen. Bones: Ill-defined sclerosis is seen with compression deformities at L1 and L4. There is a left hip total arthroplasty. Healed left rib fractures are seen. IMPRESSION: 1. Numerous hepatic masses and ill-defined osteoblastic lesions with pathologic fractures are again seen. 2. No acute abnormality is seen to explain lower abdominal pain. There is a large rectal stool ball without evidence of inspissation or wall thickening to suggest stercoral colitis. 3. Cholelithiasis without cholecystitis. ACT 112: Negative or not required by law. Electronically signed by: Edison Montana M.D. 12/21/2022 5:[address] 12/21/22 14:11 CT head/brain wo con CLINICAL HISTORY: fall, dizziness Technique: Contiguous axial CT images of the head were acquired from the base of the skull to the vertex without intravenous contrast administration. Images were viewed in brain, subdural and bone windows. Automated dose lowering techniques and/or adjustment according to patient size were utilized for this exam. Comparison: Comparison is made to MRI brain 08/23/2022 Findings: Areas of decreased attenuation are present in the periventricular and subcortical white matter bilaterally consistent with small vessel ischemic disease. Generalized cerebral atrophy with commensurate enlargement of the ventricles, sulci, and cisterns is also present. There is no acute intracranial hemorrhage or evidence of acute territorial infarction. No shift of the midline structures, mass effect, or extra-axial abnormalities are shown. Atherosclerotic calcifications are present in the intracranial segments of the internal carotid arteries. Imaged portions of the paranasal sinuses and mastoid air cells are clear. The orbits appear normal. A few calvarial lesions are seen. Impression: A few calvarial lesions are seen. Previously noted enhancing foci are not well seen on today's exam. ACT 112: Negative or not required by law. Electronically signed by: Edison Montana M.D. 12/21/2022 4:44 PM
[2022-12-23] MEDS ORDERED: bisacodyL 5 MG TABEC PO ONE (14:35)
--- NOTE | 2022-12-23 15:38 | Hospitalist Progress Note ---
Date of Service December 23, 2022 Assessment & Plan (1) Fall: Plan: Supportive care. OT and PT assessments requested. She does have a left inferior pubic ramus fracture and a left sacral alar fracture from falling. Orthopedic consultation appreciated. No surgical intervention indicated at this time. Pain control measures. Family believes she needs placement at this time. CT of the head was negative for acute changes compared to her MRI of the brain on 08/23/22. CT of the abd/pelvis and xray of the hips show nondisplaced fractures of the left inferior pubic ring and left sacral ala, no acute trauma to the left hip replacement (2) Hyponatremia: Plan: Mild. Asymptomatic. No intervention necessary at this time besides fluid restriction. Serial labs. Known SIADH (3) Cancer related pain: Plan: From bone mets. Palliative care and radiation oncology consultations appreciated. Radiation treatments to bone mets started today, December 23, per patient history. Severe low back pain from her known mets and with known L1 a nd L4 compression fractures . Continue fentanyl patch and prn Oxycodone as prescribed for home use. 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 Follows with [facility] oncology but missed her last chemotherapy treatment as she was admitted here for treatment of left hip SHERWIN dislocation . CT of the abd/pelvis now showing progression of her liver mets compared to last CT in October. Palliative care has seen the patient and she has opted for comfort care measures only. She has agreed to radiation treatments for the bone pain. (5) IVAN (acute kidney injury): Plan: Mild on admission. Treated with IV fluids. Monitor intake and output. Serial labs. Holding lasix . Avoid nephrotoxic agents . Resolved (6) Hypertension: Plan: Stable. Continue current medical management (7) Type 2 diabetes mellitus: Plan: Has recently been off metformin and controlling BSG with diet. Last A1C in September of 2022 was 6.9 . Sliding scale coverage as needed (8) SVT (supraventricular tachycardia): Plan: Stable . Continue amiodarone (9) Elevated LFTs: Plan: Due to metastatic disease. No intervention at this time. (10) UTI (urinary tract infection): Plan: Patient has been experiencing increased urinary frequency. UA on admission shows trace leukocyte esterase, > 30 WBC's. Urine culture results pending. Continue Rocephin for now, day 3 (11) Constipation: Plan: noted to have a large rectal stool burden without signs of obstruction or stercoral colitis . Continue bowel regimen. Plan She has opted for comfort care. Anticipate eventual discharge to SNF facility with hospice Admission and Anticipated Discharge Date Admission Date: December 21, 2022 Subjective Alert and oriented. No apparent distress. Palliative care entry noted. She is now on oral Decadron therapy. She stated she received radiation therapy this morning. Review of Systems Review of Systems: Constitutional-no fever or chills ENT-no blurred vision, no double vision, no epistaxis, no sore throat Respiratory-no cough, no wheezing, no shortness of breath Cardiac-no palpitations, no chest pain, no syncope GI-no nausea, vomiting, diarrhea, melena, hematochezia -no urinary retention, no urinary incontinence, no dysuria, no hematuria Musculoskeletal-some bone pain noted at metastatic sites Skin-no bruising, no rashes, no pruritus. Hair loss from chemotherapy noted Neuro-no isolated weakness, no paresthesia, no weakness Psych-no depression, no anxiety Physical Exam Physical Exam: General-alert and oriented x3, no fevers, no chills HEENT-head atraumatic and normocephalic, pupils equal and reactive to light, extraocular muscles intact Neck-no lymphadenopathy or thyromegaly, trachea midline Chest-clear to auscultation percussion. No rales wheezing or rhonchi Cardiac-regular rate and rhythm, normal S1 and S2 Abdomen-normal bowel sounds, nontender, no hepatosplenomegaly Extremities-no cyanosis, clubbing, or edema Neuro-cranial nerves II through XII intact, motor and sensory function within normal limits, strength symmetrical , no focal deficits Psych-normal affect, normal mood Results & Data Results & Data ([facility]) Laboratory Results 12/22/22 02:21 12/22/22 02:21 PG Care Time/CCT Total # of Minutes Spent Total Time Spent with Patient: Total time spent is greater than 50% in coordination of care (as documented) at patient's floor/unit and/or counseling patient: Coding Level of Care Code 84758 SUB INP/OBS CARE 3/50MIN Diagnoses Fall W19.XXXA Encounter type: initial encounter Hyponatremia E87.1 Cancer related pain G89.3 Small cell lung cancer C34.90 IVAN (acute kidney injury) N17.9 Hypertension I10 Type 2 diabetes mellitus E11.9 SVT (supraventricular tachycardia) I47.1 Elevated LFTs R79.89 UTI (urinary tract infection) N39.0 Constipation K59.00 (1) Fall Encounter type: initial encounter Qualified Code(s): W19.XXXA - Unspecified fall, initial encounter
[2022-12-23] MEDS: dexAMETHasone 4 MG TAB PO SCH (19:31)
[2022-12-23] MEDS: DICLOFENAC SOD 1% GEL 100 GM TUBE EXT SCH ×2 (19:31→20:22)
[2022-12-23] MEDS: MIRTAZAPINE TAB 15 MG TAB PO SCH (19:32)
[2022-12-23] MEDS: DOCUSATE SODIUM/SENNA 50/8.6MG TAB PO SCH (21:33)
[2022-12-24] MEDS: CHECK fentaNYL PATCH PLACEMENT SCH ×4 (00:34→23:57)
[2022-12-24] MEDS: ACETAMINOPHEN 325 MG TAB PO SCH ×4 (00:34→18:54)
[2022-12-24] MEDS: dexAMETHasone 4 MG TAB PO SCH ×2 (08:14→22:36)
[2022-12-24] MEDS: busPIRone 5 MG TAB PO SCH ×2 (08:14→22:36)
[2022-12-24] MEDS: PANTOprazole 40 MG TAB PO SCH ×2 (08:15→22:36)
[2022-12-24] MEDS: oxyCODONE HCL IR 5 MG TAB (IMMEDIATE RELEASE) PO PRN ×2 (09:39→22:27)
[2022-12-24] MEDS: LORazepam 0.5 MG TAB PO PRN ×3 (12:08→23:02)
[2022-12-24] MEDS: DICLOFENAC SOD 1% GEL 100 GM TUBE EXT SCH ×4 (12:08→22:28)
--- NOTE | 2022-12-24 13:59 | Palliative Care Progress Note ---
Date of Service December 24, 2022 Assessment & Plan (1) Palliative care by specialist: Plan: SNF rehab trial then to comfort care CM assisting (2) Cancer related pain: Plan: continue current regimen, no changes (3) Lung cancer metastatic to bone: Plan SNF rehab with likely transition to comfort care No further cancer directed therapy continue current pain regimen, stay of decadron 4mg BID through weekend Ca Shaw DNP Clinical Director, Palliative Medicine Admission and Anticipated Discharge Date Admission Date: December 21, 2022 Subjective on a comfort focused plan of care she decided she would do a trial of rehab at SNF as the best way to have coverage and not cause financial burden. she knows she may not improve and would then transition to comfort care Pain is getting better, steroids may be helping mood is a little less irritable today Review of Systems Review of Systems: All systems reviewed & are unremarkable except as noted in Subjective Results & Data ([facility]) Vital Signs (Past 12 Hours) Vital Signs Temp Pulse Resp BP Pulse Ox O2 Del Method 12/24/22 08:06 Room Air 12/24/22 07:49 36.4 C L 80 12 114/70 96 Room Air PG Care Time/CCT Total # of Minutes Spent Total Time Spent: 30 Total Time Spent with Patient: Total time spent is greater than 50% in coordination of care (as documented) at patient's floor/unit and/or counseling patient: [place]oding [place] [address] SUB INP/OBS CARE 2/35MIN Patient Type Established History Expanded Problem Focused Exam Expanded Problem Focused Medical Decision Making Moderate Complexity Diagnoses Palliative care by specialist Z51.5 Cancer related pain G89.3 Lung cancer metastatic to bone C34.90; C79.51
--- NOTE | 2022-12-24 14:20 | Hospitalist Progress Note ---
Date of Service December 24, 2022 Assessment & Plan (1) Fall: Plan: Supportive care. OT and PT assessments requested. She does have a left inferior pubic ramus fracture and a left sacral alar fracture from falling. Orthopedic consultation appreciated. No surgical intervention indicated at this time. Pain control measures. Family believes she needs placement at this time. CT of the head was negative for acute changes compared to her MRI of the brain on 08/23/22. CT of the abd/pelvis and xray of the hips show nondisplaced fractures of the left inferior pubic ring and left sacral ala, no acute trauma to the left hip replacement (2) Hyponatremia: Plan: Mild. Asymptomatic. No intervention necessary at this time besides fluid restriction. Serial labs. Known SIADH (3) Cancer related pain: Plan: From bone mets. Palliative care and radiation oncology consultations appreciated. Radiation treatments to bone mets have begun. Severe low back pain from her known mets and with known L1 and L4 compression fractures . Con tinue fentanyl patch and prn Oxycodone as prescribed for home use. 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 Follows with [facility] oncology but missed her last chemotherapy treatment as she was admitted here for treatment of left hip SHERWIN dislocation . CT of the abd/pelvis now showing progression of her liver mets compared to last CT in October. Palliative care has seen the patient and she has opted for comfort care measures only. She has agreed to radiation treatments for the bone pain. (5) IVAN (acute kidney injury): Plan: Mild on admission. Resolved with IV fluids. Monitor intake and output. Serial labs. Holding lasix. Avoid nephrotoxic agents . (6) Hypertension: Plan: Stable. Continue current medical management (7) Type 2 diabetes mellitus: Plan: Has recently been off metformin and controlling BSG with diet. Last A1C in September of 2022 was 6.9 . Sliding scale coverage as needed (8) SVT (supraventricular tachycardia): Plan: Stable . Continue amiodarone (9) Elevated LFTs: Plan: Due to metastatic disease. No intervention at this time. (10) UTI (urinary tract infection): Plan: Patient has been experiencing increased urinary frequency. UA on admission shows trace leukocyte esterase, > 30 WBC's. Urine culture reveals multiple organisms consistent with colonization. Rocephin has been discontinued (11) Constipation: Plan: noted to have a large rectal stool burden on admission without signs of obstruction or stercoral colitis . Continue bowel regimen. Improved Plan Awaiting placement in SNF facility with probable eventual transition to comfort care. Admission and Anticipated Discharge Date Admission Date: December 21, 2022 Subjective Alert and oriented. No apparent distress. No new problems. She does have some urinary incontinence and Boucher catheter has been ordered. Review of Systems Review of Systems: Constitutional-no fever or chills ENT-no blurred vision, no double vision, no epistaxis, no sore throat Respiratory-no cough, no wheezing, no shortness of breath Cardiac-no palpitations, no chest pain, no syncope GI-no nausea, vomiting, diarrhea, melena, hematochezia -no urinary retention, no urinary incontinence, no dysuria, no hematuria Musculoskeletal-some bone pain noted at metastatic sites Skin-no bruising, no rashes, no pruritus. Hair loss from chemotherapy noted Neuro-no isolated weakness, no paresthesia, no weakness Psych-no depression, no anxiety Physical Exam Physical Exam: General-alert and oriented x3, no fevers, no chills HEENT-head atraumatic and normocephalic, pupils equal and reactive to light, extraocular muscles intact Neck-no lymphadenopathy or thyromegaly, trachea midline Chest-clear to auscultation percussion. No rales wheezing or rhonchi Cardiac-regular rate and rhythm, normal S1 and S2 Abdomen-normal bowel sounds, nontender, no hepatosplenomegaly Extremities-no cyanosis, clubbing, or edema Neuro-cranial nerves II through XII intact, motor and sensory function within normal limits, strength symmetrical , no focal deficits Psych-normal affect, normal mood Results & Data Results & Data ([facility]) Vital Signs (Past 12 Hours) Vital Signs Temp Pulse Resp BP Pulse Ox O2 Del Method 12/24/22 08:06 Room Air 12/24/22 07:49 36.4 C L 80 12 114/70 96 Room Air Laboratory Results 12/22/22 02:21 12/22/22 02:21 PG Care Time/CCT Total # of Minutes Spent Total Time Spent with Patient: Total time spent is greater than 50% in coordination of care (as documented) at patient's floor/unit and/or counseling patient: Coding Level of Care Code 06712 SUB INP/OBS CARE MIN Diagnoses Fall W19.XXXA Encounter type: initial encounter Hyponatremia E87.1 Cancer related pain G89.3 Small cell lung cancer C34.90 IVAN (acute kidney injury) N17.9 Hypertension I10 Type 2 diabetes mellitus E11.9 SVT (supraventricular tachycardia) I47.1 Elevated LFTs R79.89 UTI (urinary tract infection) N39.0 Constipation K59.00 (1) Fall Encounter type: initial encounter Qualified Code(s): W19.XXXA - Unspecified fall, initial encounter
[2022-12-24] MEDS: ONDANSETRON INJ 2 MG/ML 2 ML VIAL IV PRN (18:48)
[2022-12-24] MEDS: DOCUSATE SODIUM/SENNA 50/8.6MG TAB PO SCH (22:37)
[2022-12-24] MEDS: MIRTAZAPINE TAB 15 MG TAB PO SCH (22:37)
[2022-12-25] MEDS: ACETAMINOPHEN 325 MG TAB PO SCH ×5 (01:34→22:50)
--- NOTE | 2022-12-25 06:25 | Hospitalist Progress Note ---
Date of Service December 25, 2022 Assessment & Plan (1) Small cell lung cancer: Plan: Although there have been some gains in pain management, unfortunately there seems to be no prospect for fundamental improvement in performance status. In that context with an incurable and aggressive malignancy that has already shown resistance to systemic therapy, there is no role for further chemotherapy nor are there noncytotoxic options which would have a sufficient prospect for meaningful improvement of her situation to justify their institution. Lore has shown some volatility of her personality and certainly seems to be a different person currently as compared to times when she was doing better. That probably has both endogenous and exogenous components and certainly the [id number] of difficult sleep, never completely relieved pain, and the impact of her polypharmacy regimen required for current management undoubtedly are all part of her current persona. From extensive conversations at times that she was doing better, however, I feel that she would unequivocally agree with the current plan of transition to comfort care even if she does not currently have full capacity to affirm that choice. Plan Will be transitioning to a comfort care approach. I will "sign off" officially but continue to monitor so long as she remains in the hospital. Please do not hesitate to call if additional questions or concerns arise with which I can help. Admission and Anticipated Discharge Date Admission Date: December 21, 2022 Results & Data Results & Data ([facility]) Vital Signs (Past 12 Hours) Vital Signs O2 Del Method 12/24/22 20:45 Room Air PG Care Time/CCT Total # of Minutes Spent Total Time Spent with Patient: Total time spent is greater than 50% in coordination of care (as documented) at patient's floor/unit and/or counseling patient: Coding Level of Care Code None Diagnoses Small cell lung cancer C34.90
[2022-12-25] MEDS: DICLOFENAC SOD 1% GEL 100 GM TUBE EXT SCH ×4 (08:24→20:12)
[2022-12-25] MEDS: busPIRone 5 MG TAB PO SCH ×2 (08:24→20:13)
[2022-12-25] MEDS: dexAMETHasone 4 MG TAB PO SCH ×2 (08:25→20:12)
[2022-12-25] MEDS: CHECK fentaNYL PATCH PLACEMENT SCH ×2 (08:25→15:52)
[2022-12-25] MEDS: PANTOprazole 40 MG TAB PO SCH (08:25)
[2022-12-25] MEDS: oxyCODONE HCL IR 5 MG TAB (IMMEDIATE RELEASE) PO PRN ×5 (09:08→22:49)
[2022-12-25] MEDS: fentaNYL 50 MCG/HR TDSY TD SCH (11:09)
[2022-12-25] MEDS: fentaNYL 12 MCG/HR TDSY TD SCH (11:09)
--- NOTE | 2022-12-25 12:22 | Hospitalist Progress Note ---
Date of Service December 25, 2022 Assessment & Plan (1) Fall: Plan: Supportive care. OT and PT assessments requested. She does have a left inferior pubic ramus fracture and a left sacral alar fracture from falling. Orthopedic consultation appreciated. No surgical intervention indicated at this time. Pain control measures. Family believes she needs placement at this time. CT of the head was negative for acute changes compared to her MRI of the brain on 08/23/22. CT of the abd/pelvis and xray of the hips show nondisplaced fractures of the left inferior pubic ring and left sacral ala, no acute trauma to the left hip replacement (2) Hyponatremia: Plan: Mild. Asymptomatic. No intervention necessary at this time besides fluid restriction. Serial labs. Known SIADH (3) Cancer related pain: Plan: From bone mets. Palliative care and radiation oncology consultations appreciated. Radiation treatments to bone mets have begun. Severe low back pain from her known mets and with known L1 and L4 compression fractures . Con tinue fentanyl patch and prn Oxycodone as prescribed for home use. 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 Follows with [facility] [place] oncology but missed her last chemotherapy treatment as she was admitted here for treatment of left hip SHERWIN dislocation . CT of the abd/pelvis now showing progression of her liver mets compared to last CT in October. Palliative care has seen the patient and she has opted for comfort care measures only. She has agreed to radiation treatments for the bone pain. (5) IVAN (acute kidney injury): Plan: Mild on admission. Resolved with IV fluids. Monitor intake and output. Serial labs. Holding lasix. Avoid nephrotoxic agents . (6) Hypertension: Plan: Stable. Continue current medical management (7) Type 2 diabetes mellitus: Plan: Has recently been off metformin and controlling BSG with diet. Last A1C in September of 2022 was 6.9 . Sliding scale coverage as needed (8) SVT (supraventricular tachycardia): Plan: Stable . Continue amiodarone (9) Elevated LFTs: Plan: Due to metastatic disease. No intervention at this time. (10) UTI (urinary tract infection): Plan: Urine culture reveals multiple organisms consistent with colonization. Rocephin has been discontinued (11) Constipation: Plan: noted to have a large rectal stool burden on admission without signs of obstruction or stercoral colitis . Continue bowel regimen. Improved Plan Awaiting placement in SNF facility with probable eventual transition to comfort care. Admission and Anticipated Discharge Date Admission Date: December 21, 2022 Subjective Alert and oriented. No new complaints. No new physical findings Review of Systems Review of Systems: Constitutional-no fever or chills ENT-no blurred vision, no double vision, no epistaxis, no sore throat Respiratory-no cough, no wheezing, no shortness of breath Cardiac-no palpitations, no chest pain, no syncope GI-no nausea, vomiting, diarrhea, melena, hematochezia -no urinary retention, no urinary incontinence, no dysuria, no hematuria Musculoskeletal-some bone pain noted at metastatic sites Skin-no bruising, no rashes, no pruritus. Hair loss from chemotherapy noted Neuro-no isolated weakness, no paresthesia, no weakness Psych-no depression, no anxiety Physical Exam 2 Physical Exam: General-alert and oriented x3, no fevers, no chills HEENT-head atraumatic and normocephalic, pupils equal and reactive to light, extraocular muscles intact Neck-no lymphadenopathy or thyromegaly, trachea midline Chest-clear to auscultation percussion. No rales wheezing or rhonchi Cardiac-regular rate and rhythm, normal S1 and S2 Abdomen-normal bowel sounds, nontender, no hepatosplenomegaly Extremities-no cyanosis, clubbing, or edema Neuro-cranial nerves II through XII intact, motor and sensory function within normal limits, strength symmetrical , no focal deficits Psych-normal affect, normal mood Results & Data Results & Data ([facility]) Vital Signs (Past 12 Hours) Vital Signs Temp Pulse Resp BP Pulse Ox O2 Del Method 12/25/22 09:00 Room Air 12/25/22 06:57 36.6 C 74 16 109/64 93 Room Air Laboratory Results 12/22/22 02:21 12/22/22 02:21 PG Care Time/CCT Total # of Minutes Spent Total Time Spent with Patient: Total time spent is greater than 50% in coordination of care (as documented) at patient's floor/unit and/or counseling patient: Coding Level of Care Code 42880 SUB INP/OBS CARE 2/35MIN Diagnoses Fall W19.XXXA Encounter type: initial encounter Hyponatremia E87.1 Cancer related pain G89.3 Small cell lung cancer C34.90 IVAN (acute kidney injury) N17.9 Hypertension I10 Type 2 diabetes mellitus E11.9 SVT (supraventricular tachycardia) I47.1 Elevated LFTs R79.89 UTI (urinary tract infection) N39.0 Constipation K59.00 (1) Fall Encounter type: initial encounter Qualified Code(s): W19.XXXA - Unspecified fall, initial encounter
[2022-12-25] MEDS: LORazepam 0.5 MG TAB PO PRN ×3 (13:01→22:50)
[2022-12-25] MEDS: DOCUSATE SODIUM/SENNA 50/8.6MG TAB PO SCH (20:12)
[2022-12-25] MEDS: MIRTAZAPINE TAB 15 MG TAB PO SCH (20:12)
[2022-12-26] MEDS: CHECK fentaNYL PATCH PLACEMENT SCH ×3 (00:41→16:04)
[2022-12-26] MEDS: LORazepam 0.5 MG TAB PO PRN ×4 (06:19→22:26)
[2022-12-26] MEDS: ACETAMINOPHEN 325 MG TAB PO SCH ×3 (06:20→17:36)
[2022-12-26] MEDS: dexAMETHasone 4 MG TAB PO SCH ×2 (08:30→19:30)
[2022-12-26] MEDS: PANTOprazole 40 MG TAB PO SCH (08:30)
[2022-12-26] MEDS: busPIRone 5 MG TAB PO SCH ×2 (08:30→19:30)
[2022-12-26] MEDS: DICLOFENAC SOD 1% GEL 100 GM TUBE EXT SCH ×4 (08:30→19:29)
[2022-12-26] MEDS: oxyCODONE HCL IR 5 MG TAB (IMMEDIATE RELEASE) PO PRN ×4 (10:23→21:18)
--- NOTE | 2022-12-26 12:09 | Hospitalist Progress Note ---
Date of Service December 26, 2022 Assessment & Plan (1) Fall: Plan: Supportive care. Continue OT and PT. She does have a left inferior pubic ramus fracture and a left sacral alar fracture from falling. Orthopedic consultation appreciated. No surgical intervention indicated at this time. Pain control measures. Family believes she needs placement at this time. CT of the head was negative for acute changes compared to her MRI of the brain on 08/23/22. CT of the abd/pelvis and xray of the hips show nondisplaced fractures of the left inferior pubic ring and left sacral ala, no acute trauma to the left hip replacement (2) Hyponatremia: Plan: Mild. Asymptomatic. No intervention necessary at this time besides fluid restriction. Serial labs. Known SIADH (3) Cancer related pain: Plan: From bone mets. Palliative care and radiation oncology consultations appreciated. Radiation treatments to bone mets have begun. Severe low back pain from her known mets and with known L1 and L4 compression fractures . Continue fentanyl patch and prn Oxycodone as prescribed for home use. 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 Follows with [facility] oncology but missed her last chemotherapy treatment as she was admitted here for treatment of left hip SHERWIN dislocation . CT of the abd/pelvis now showing progression of her liver mets compared to last CT in October. Palliative care has seen the patient and she has opted for comfort care measures only. She has agreed to radiation treatments for the bone pain. (5) IVAN (acute kidney injury): Plan: Mild on admission. Resolved with IV fluids. Monitor intake and output. Serial labs. Holding lasix. Avoid nephrotoxic agents . (6) Hypertension: Plan: Stable. Continue current medical management (7) Type 2 diabetes mellitus: Plan: Has recently been off metformin and controlling BSG with diet. Last A1C in [facility] 2021 was 6.9 . Sliding scale coverage as needed (8) SVT (supraventricular tachycardia): Plan: Stable . Continue amiodarone (9) Elevated LFTs: Plan: Due to metastatic disease. No intervention at this time. (10) UTI (urinary tract infection): Plan: Urine culture reveals multiple organisms consistent with colonization. Rocephin has been discontinued (11) Constipation: Plan: noted to have a large rectal stool burden on admission without signs of obstruction or stercoral colitis . Continue bowel regimen. Improved Plan Awaiting placement in SNF facility with probable eventual transition to comfort care. Admission and Anticipated Discharge Date Admission Date: December 21, 2022 Subjective Alert and oriented. No acute distress. No new problems. Awaiting eventual placement at [facility] Review of Systems Review of Systems: Constitutional-no fever or chills ENT-no blurred vision, no double vision, no epistaxis, no sore throat Respiratory-no cough, no wheezing, no shortness of breath Cardiac-no palpitations, no chest pain, no syncope GI-no nausea, vomiting, diarrhea, melena, hematochezia -no urinary retention, no urinary incontinence, no dysuria, no hematuria Musculoskeletal-some bone pain noted at metastatic sites Skin-no bruising, no rashes, no pruritus. Hair loss from chemotherapy noted Neuro-no isolated weakness, no paresthesia, no weakness Psych-no depression, no anxiety Physical Exam Physical Exam: General-alert and oriented x3, no fevers, no chills HEENT-head atraumatic and normocephalic, pupils equal and reactive to light, extraocular muscles intact Neck-no lymphadenopathy or thyromegaly, trachea midline Chest-clear to auscultation percussion. No rales wheezing or rhonchi Cardiac-regular rate and rhythm, normal S1 and S2 Abdomen-normal bowel sounds, nontender, no hepatosplenomegaly Extremities-no cyanosis, clubbing, or edema Neuro-cranial nerves II through XII intact, motor and sensory function within normal limits, strength symmetrical , no focal deficits Psych-normal affect, normal mood Results & Data Results & Data ([facility]) Vital Signs (Past 12 Hours) Vital Signs Temp Pulse Resp BP Pulse Ox O2 Del Method 12/26/22 08:43 Room Air 12/26/22 08:17 36.4 C L 78 18 128/78 95 Room Air Laboratory Results 12/22/22 02:21 12/22/22 02:21 PG Care Time/CCT Total # of Minutes Spent Total Time Spent with Patient: Total time spent is greater than 50% in coordination of care (as documented) at patient's floor/unit and/or counseling patient: Coding Level of Care Code 27877 SUB INP/OBS CARE 2/35MIN Diagnoses Fall W19.XXXA Encounter type: initial encounter Hyponatremia E87.1 Cancer related pain G89.3 Small cell lung cancer C34.90 IVAN (acute kidney injury) N17.9 Hypertension I10 Type 2 diabetes mellitus E11.9 SVT (supraventricular tachycardia) I47.1 Elevated LFTs R79.89 UTI (urinary tract infection) N39.0 Constipation K59.00 (1) Fall Encounter type: initial encounter Qualified Code(s): W19.XXXA - Unspecified fall, initial encounter
[2022-12-26] MEDS: MIRTAZAPINE TAB 15 MG TAB PO SCH (19:29)
[2022-12-26] MEDS: DOCUSATE SODIUM/SENNA 50/8.6MG TAB PO SCH (19:32)
[2022-12-26] MEDS ORDERED: MoRPHine SULFATE 4 MG/ML 1 ML CARP\\VIAL IV ONE (22:00)
[2022-12-27] MEDS: ACETAMINOPHEN 325 MG TAB PO SCH ×4 (01:16→18:10)
[2022-12-27] MEDS: CHECK fentaNYL PATCH PLACEMENT SCH ×3 (01:16→15:56)
[2022-12-27] MEDS: oxyCODONE HCL IR 5 MG TAB (IMMEDIATE RELEASE) PO PRN ×4 (02:10→16:59)
[2022-12-27] MEDS: LORazepam 0.5 MG TAB PO PRN ×2 (04:28→09:00)
[2022-12-27] MEDS: PANTOprazole 40 MG TAB PO SCH (08:13)
[2022-12-27] MEDS: dexAMETHasone 4 MG TAB PO SCH (08:13)
[2022-12-27] MEDS: busPIRone 5 MG TAB PO SCH ×2 (08:13→20:19)
[2022-12-27] MEDS: DICLOFENAC SOD 1% GEL 100 GM TUBE EXT SCH ×4 (08:13→20:25)
[2022-12-27] MEDS: ONDANSETRON INJ 2 MG/ML 2 ML VIAL IV PRN ×2 (08:34→13:01)
--- NOTE | 2022-12-27 09:23 | Orthopedic Progress Note ---
Date of Service December 27, 2022 Assessment & Plan (1) Pelvic ring fracture: Plan: Left inferior pubic rami fracture-nondisplaced. Left sacral bishop fracture- nondisplaced. -Continue with PT and OT. -Continue with weight-bear as tolerated on bilateral lower extremities with the assistance of walker for ambulation. -She may do full hip range of motion as tolerated on her right hip. Posterior hip precautions on the left hip due to the recent hemiarthroplasty and cadena bsequent dislocation. -Advise she can use a pillow while in bed if more comfortable does not need the knee immobilizer on while in bed just when she is out of bed. -Ice as needed for pain or swelling. -Pain medication as per primary service. -Patient waiting for bed/authorization for transitioning to SNF -Follow-up with Dr. Flores as scheduled in approximately 4 weeks. Present on Admission?: Yes (2) History of left hip hemiarthroplasty: Plan: - Continue with ice and anti-inflammatories, and rehabilitation program, progressing to activities as tolerated. - Continue total hip precautions for another 4 weeks. - Continue pillow between knees when in bed and knee immobilizer with transfers and when out of bed. - Weight-bear as tolerated left lower extremity - Use walker at all times to assist with ambulation - Follow-up with Dr. Flores as scheduled in approximately 4 weeks. Present on Admission?: Yes Admission and Anticipated Discharge Date Admission Date: December 21, 2022 Subjective Patient is a 77-year-old female who is being followed for a left inferior pubic rami fracture-nondisplaced and a left sacral bishop fracture-nondisplaced. She also has a history of having a left Jn arthroplasty that was successfully reduced under previous admission. She was seen this morning bedside. She is alert and oriented x3 she is not in any distress. She states she is doing okay and reports her pain is 7/10 in the left buttock area. She states she is having some pain all over. She recently just asked for pain medications and the nurse is present to give these now. She denies having any calf pain, fever, chills, chest pain or shortness of breath at this time. Review of Systems Review of Systems: Please refer to HPI Physical Exam Physical Exam: General: Patient is alert and oriented x3 no acute distress Integumentary, musculoskeletal. Skin is normal color and temperature. Knee immobilizer is on this was removed. Skin over covered area is normal in color and temperature negative for abrasions or irritation from immobilizer. Patient is able to actively flex the knee to approximately 50 degrees and extend. Able to actively plantar and dorsiflex ankle. She tolerates active assisted range of motion of the hip. She is able to do a straight leg raise with assistance on the left. Negative rocker sign. Her calf is soft and nontender. Dorsal pedis pulse is 2+. Results & Data ([facility]) Vital Signs (Past 12 Hours) Vital Signs O2 Del Method 12/27/22 08:48 Room Air
[2022-12-27] MEDS: LORazepam 2 MG/1 ML VIAL IV PRN ×2 (09:57→13:57)
[2022-12-27] MEDS: fentaNYL 75 MCG/HR TDSY TD SCH (12:59)
[2022-12-27] MEDS: [UNRECOGNIZED DRUG - REMARK] SCH (12:59)
[2022-12-27] MEDS: HYDROmorphone INJ 0.5 MG/0.5 ML SYR IV PRN ×2 (13:01→20:24)
[2022-12-27] MEDS: LORazepam 1 MG TAB PO PRN ×2 (16:59→20:19)
[2022-12-27] MEDS: MIRTAZAPINE TAB 15 MG TAB PO SCH (20:19)
[2022-12-27] MEDS: dexAMETHasone 1 MG TAB PO SCH (20:20)
[2022-12-27] MEDS: DOCUSATE SODIUM/SENNA 50/8.6MG TAB PO SCH (20:25)
--- NOTE | 2022-12-27 20:37 | Palliative Care Progress Note ---
Date of Service December 27, 2022 Assessment & Plan (1) Palliative care by specialist: Plan: SNF rehab trial then to comfort care/CM assisting Constipation under rx legacy review with pt today, additional psychosocial support provided. (2) Cancer related pain: Plan: continue current regimen IV options added for refractory symptoms should they arise (3) Lung cancer metastatic to bone: Plan SNF rehab with likely transition to comfort care/No further cancer directed therapy Continue current pain regimen Reduced Decadron to 2mg BID, plan for 3 days then stop Bowel regimen underway Ca Shaw DNP Clinical Director, Palliative Medicine Admission and Anticipated Discharge Date Admission Date: December 21, 2022 Siobhan Torrez is seen this afternoon for ongoing pain and sx mgt, comfort focused plan, awaiting dispo to SNF for rehab trial and conversion to LTC with comfort. SHe is sitting up in bed and slightly irritable at time of my visit: she is frustrated trying to floss her teeth and not being able to tear the floss off dispenser - she has 3 different floss containers with long strings but has not been able to tear it off due to waning strength. She was eating crackers with peanut butter prior, frustrated that crackers were snapping as she tried to dip them into peanut butter (they are only saltines, not a heartier cracker and she did not have any plastic cutlery.) Crackers are strewn across her bedside table, in her lap and on bedsheets. Crumbs are on her linens and personal items including glasses. She feels pain and anxiety are better today. She is moving her bowels a little more but admits she continues to feel urge for BM though it is sometimes just gas. Denies pain or n/v Appetite is ok, about her usual baseline. Drinking water, ankur margarito etc as desired. Lore states she is "just tired of feeling like this all the time now, so weak, so tired and knowing nothing is going to get a lot better or go away." She has been thinking more about her mortality and feels at peace with both that as well as where things will be with and for , she has adelfo her children will help him manage and tells me she is just not going to keep thinking about the "whjat-ifs of his care when I'm gone." Review of Systems Review of Systems: All systems reviewed & are unremarkable except as noted in HPI & below and All systems reviewed & are unremarkable except as noted in Subjective Physical Exam Physical Exam: Frail, elderly female, sitting in bed. Mood a bit irritable today. She is frustrated with strength declining and has not been able to tear her dental floss off successfully. +chemo alopecia. + Bitemporal wasting. Pupils are equal, round and reactive to light. Extraocular movements are intact. Neck is supple and without any obvious JVD, stridor or thyromegaly. Her pharynx is pink, mucosa are slightly dry, and dentition is fair. There is mild use of accessory muscles with prolonged conversation or exertion from trying to reposition herself. Lung sounds are diminished overall with a few faint rhonchi. There is no audible wheeze. Heart tones are S1-S2, normal rhythm. Abdomen is soft, mildly distended and less tender to palpation, BS+; +generalized weakness throughout both upper and lower extremities. BLE weaker than BUE. AAOx3 with this examiner. Her skin is pale and cool to touch. There is no overt clubbing or cyanosis noted. Results & Data ([facility]) Vital Signs (Past 12 Hours) Vital Signs O2 Del Method 12/27/22 08:48 Room Air PG Care Time/CCT Total # of Minutes Spent Total Time Spent: 68 Total Time Spent with Patient: Total time spent is greater than 50% in coordination of care (as documented) at patient's floor/unit and/or counseling patient: Coding [place] [address] SUB INP/OBS CARE 3/50MIN Patient Type Established History Comprehensive Exam Comprehensive Medical Decision Making High Complexity Diagnoses Palliative care by specialist Z51.5 Cancer related pain G89.3 Lung cancer metastatic to bone C34.90; C79.51
--- NOTE | 2022-12-27 22:04 | Hospitalist Progress Note ---
Date of Service December 27, 2022 Assessment & Plan (1) Fall: Plan: Supportive care. Continue OT and PT. She does have a left inferior pubic ramus fracture and a left sacral alar fracture from falling. Orthopedic consultation appreciated. No surgical intervention indicated at this time. Pain control measures. Family believes she needs placement at this time. CT of the head was negative for acute changes compared to her MRI of the brain on 08/23/22. CT of the abd/pelvis and xray of the hips show nondisplaced fractures of the left inferior pubic ring and left sacral ala, no acute trauma to the left hip replacement continue current plan. (2) Hyponatremia: Plan: Mild. Asymptomatic. No intervention necessary at this time besides fluid restriction. Serial labs. Known SIADH (3) Cancer related pain: Plan: From bone mets. Palliative care and radiation oncology consultations appreciated. Radiation treatments to bone mets have begun. Severe low back pain from her known mets and with known L1 and L4 compression fractures . Continue fentanyl patch and prn Oxycodone as prescribed for home use. 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 [place] [facility] [place] but missed her last chemotherapy treatment as she was admitted here for treatment of left hip SHERWIN dislocation . CT of the abd/pelvis now showing progression of her liver mets compared to last CT in October. Palliative care has seen the patient and she has opted for comfort care measures only. She has agreed to radiation treatments for the bone pain. (5) IVAN (acute kidney injury): Plan: Mild on admission. Resolved with IV fluids. Monitor intake and output. Serial labs. Holding lasix. Avoid nephrotoxic agents . (6) Hypertension: Plan: Stable. Continue current medical management (7) Type 2 diabetes mellitus: Plan: Has recently been off metformin and controlling BSG with diet. Last A1C in September of 2022 was 6.9 . Sliding scale coverage as needed (8) SVT (supraventricular tachycardia): Plan: Stable . Continue amiodarone (9) Elevated LFTs: Plan: Due to metastatic disease. No intervention at this time. (10) UTI (urinary tract infection): Plan: Urine culture reveals multiple organisms consistent with colonization. Rocephin has been discontinued (11) Constipation: Plan: noted to have a large rectal stool burden on admission without signs of obstruction or stercoral colitis . Continue bowel regimen. Improved Plan Awaiting placement in SNF facility with probable eventual transition to comfort care. Admission and Anticipated Discharge Date Admission Date: December 21, 2022 Subjective Patient appears confused. She is seeing people playing in the parking lot. Review of Systems Review of Systems: All systems reviewed & are unremarkable except as noted in HPI & below Physical Exam Physical Exam: General-resting comfortably, no fevers, no chills HEENT-head atraumatic and normocephalic, pupils equal and reactive to light, extraocular muscles intact Neck-no lymphadenopathy or thyromegaly, trachea midline Chest-clear to auscultation percussion. No rales wheezing or rhonchi Cardiac-regular rate and rhythm, normal S1 and S2 Abdomen-normal bowel sounds, nontender, no hepatosplenomegaly Extremities-no cyanosis, clubbing, or edema Neuro-cranial nerves II through XII intact, motor and sensory function within normal limits, strength symmetrical , no focal deficits Psych-normal affect, normal mood PG Care Time/CCT Total # of Minutes Spent Total Time Spent with Patient: Total time spent is greater than 50% in coordination of care (as documented) at patient's floor/unit and/or counseling patient: Coding Level of Care Code 60431 SUB INP/OBS CARE 2/35MIN Diagnoses Fall W19.XXXA Encounter type: initial encounter Hyponatremia E87.1 Cancer related pain G89.3 Small cell lung cancer C34.90 IVAN (acute kidney injury) N17.9 Hypertension I10 Type 2 diabetes mellitus E11.9 SVT (supraventricular tachycardia) I47.1 Elevated LFTs R79.89 UTI (urinary tract infection) N39.0 Constipation K59.00 Time Spent (min) 35 Comment chart review, interaction with patient, and discussion with director of casework (1) Fall Encounter type: initial encounter Qualified Code(s): W19.XXXA - Unspecified fall, initial encounter
[2022-12-28] MEDS: ACETAMINOPHEN 325 MG TAB PO SCH ×5 (01:14→23:31)
[2022-12-28] MEDS: CHECK fentaNYL PATCH PLACEMENT SCH ×4 (01:15→23:31)
[2022-12-28] MEDS: HYDROmorphone INJ 0.5 MG/0.5 ML SYR IV PRN ×10 (03:34→17:42)
[2022-12-28] MEDS: LORazepam 1 MG TAB PO PRN ×5 (03:34→23:28)
[2022-12-28] MEDS: oxyCODONE HCL IR 5 MG TAB (IMMEDIATE RELEASE) PO PRN ×4 (07:24→19:38)
[2022-12-28] MEDS: dexAMETHasone 1 MG TAB PO SCH ×2 (07:25→23:30)
[2022-12-28] MEDS: PANTOprazole 40 MG TAB PO SCH (07:25)
[2022-12-28] MEDS: busPIRone 5 MG TAB PO SCH ×2 (07:25→23:30)
[2022-12-28] MEDS: DICLOFENAC SOD 1% GEL 100 GM TUBE EXT SCH ×4 (07:26→23:30)
[2022-12-28] MEDS: POLYETHYLENE (MIRALAX) 17 GM PACK PO SCH (07:26)
--- NOTE | 2022-12-28 09:53 | Communication Note ---
Date of Service: December 28, 2022 Paged by nursing earlier this morning at 745 advising that patient has been somewhat more agitated, confused and restless. She is alert to self and follow ing simple commands. She is also having increased dyspnea at times. As needed medications have been used and nursing reports that she needed more frequent utilization of her as needed medications overnight. At present there is no acute distress reported apart from her agitation. I requested nursing to administer the as needed Ativan as ordered to reassess patient for efficacy of the Ativan dose as well as for pain reassessment in approximately 20 to 30 minutes. Her pain has been complex and escalating over time. She is likely transitioning from a process of living to a process of dying. Patient remains on comfort care we will continue to reassess her throughout the day. Ca Shaw DNP Clinical Director, Palliative Medicine
[2022-12-28] MEDS: LORazepam 2 MG/1 ML VIAL IV PRN (12:49)
--- NOTE | 2022-12-28 15:11 | Palliative Care Progress Note ---
Date of Service December 28, 2022 Assessment & Plan (1) Palliative care by specialist: (2) Constipation: (3) Cancer related pain: (4) Pelvic ring fracture: (5) Falls frequently: (6) Weakness: (7) Lung cancer metastatic to bone: (8) Small cell lung cancer: Plan No changes today.She is sleeping after an eventful night with more symptoms. Awaiting placement but if this change persists, it is likely a sign she is transitioning to an end of life process and would be unlikely to engage in rehab. At that junction I would suggest moving patient to a solely comfort focused plan of care and no further rehab etc interventions. Ca Shaw DNP Clinical Director, Palliative Medicine Admission and Anticipated Discharge Date Admission Date: December 21, 2022 Subjective mild restless, confusion earlier today. sleeping at time of my visit. had an eventful night so i did not wake her and exam was deferred Review of Systems Review of Systems: Other (sleeping) Physical Exam Physical Exam: Limited: asleep in bed, resp effort WAL. no obvious distress. Color pale but skin warm. no cyanosis or mottling. Results & Data ([facility]) Vital Signs (Past 12 Hours) Vital Signs O2 Del Method 12/28/22 07:30 Room Air PG Care Time/CCT Total # of Minutes Spent Total Time Spent: 32 Total Time Spent with Patient: Total time spent is greater than 50% in coordination of care (as documented) at patient's floor/unit and/or counseling patient: Prolonged Care Time Prolonged Care Time: No C[place] [address] SUB INP/OBS CARE 2/35MIN Patient Type Established History Expanded Problem Focused Exam Expanded Problem Focused Medical Decision Making Moderate Complexity Diagnoses Palliative care by specialist Z51.5 Constipation K59.00 Cancer related pain G89.3 Pelvic ring fracture S32.810A Falls frequently R29.6 Weakness R53.1 Lung cancer metastatic to bone C34.90; C79.51 Small cell lung cancer C34.90
--- NOTE | 2022-12-28 22:32 | Hospitalist Progress Note ---
Date of Service December 28, 2022 Assessment & Plan (1) Fall: Plan: Supportive care. Continue OT and PT. She does have a left inferior pubic ramus fracture and a left sacral alar fracture from falling. Orthopedic consultation appreciated. No surgical intervention indicated at this time. Pain control measures. Family believes she needs placement at this time. CT of the head was negative for acute changes compared to her MRI of the brain on 08/23/22. CT of the abd/pelvis and xray of the hips show nondisplaced fractures of the left inferior pubic ring and left sacral ala, no acute trauma to the left hip replacement continue current plan. It appears she has been confused today. Palliative care saw patient earlier and appears she may have begun the process of dying. will monitor. (2) Hyponatremia: Plan: Mild. Asymptomatic. No intervention necessary at this time besides fluid restriction. Serial labs. Known SIADH (3) Cancer related pain: Plan: From bone mets. Palliative care and radiation oncology consultations appreciated. Radiation treatments to bone mets have begun. Severe low back pain from her known mets and with known L1 and L4 compression fractures . Continue fentanyl patch and prn Oxycodone as prescribed for home use. 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 Follows with [facility] oncology but missed her last chemotherapy treatment as she was admitted here for treatment of left hip SHERWIN dislocation . CT of the abd/pelvis now showing progression of her liver mets compared to last CT in October. Palliative care has seen the patient and she has opted for comfort care measures only. She has agreed to radiation treatments for the bone pain. (5) IVAN (acute kidney injury): Plan: Mild on admission. Resolved with IV fluids. Monitor intake and output. Serial labs. Holding lasix. Avoid nephrotoxic agents . (6) Hypertension: Plan: Stable. Continue current medical management (7) Type 2 diabetes mellitus: Plan: Has recently been off metformin and controlling BSG with diet. Last A1C in September of 2022 was 6.9 . Sliding scale coverage as needed (8) SVT (supraventricular tachycardia): Plan: Stable . Continue amiodarone (9) Elevated LFTs: Plan: Due to metastatic disease. No intervention at this time. (10) UTI (urinary tract infection): Plan: Urine culture reveals multiple organisms consistent with colonization. Rocephin has been discontinued (11) Constipation: Plan: noted to have a large rectal stool burden on admission without signs of obstruction or stercoral colitis . Continue bowel regimen. Improved Plan Awaiting placement in SNF facility with probable eventual transition to comfort care. Admission and Anticipated Discharge Date Admission Date: December 21, 2022 Subjective Patient appears comfortable and resting. Review of Systems Review of Systems: All systems reviewed & are unremarkable except as noted in HPI & below Physical Exam Physical Exam: General-resting comfortably, no fevers, no chills HEENT-head atraumatic and normocephalic, pupils equal and reactive to light, extraocular muscles intact Neck-no lymphadenopathy or thyromegaly, trachea midline Chest-clear to auscultation percussion. No rales wheezing or rhonchi Cardiac-regular rate and rhythm, normal S1 and S2 Abdomen-normal bowel sounds, nontender, no hepatosplenomegaly Extremities-no cyanosis, clubbing, or edema Neuro-cranial nerves II through XII intact, motor and sensory function within normal limits, strength symmetrical , no focal deficits Psych-normal affect, normal mood PG Care Time/CCT Total # of Minutes Spent Total Time Spent with Patient: Total time spent is greater than 50% in coordination of care (as documented) at patient's floor/unit and/or counseling patient: Coding Level of Care Code 71164 SUB INP/OBS CARE 235MIN Diagnoses Fall W19.XXXA Encounter type: initial encounter Hyponatremia E87.1 Cancer related pain G89.3 Small cell lung cancer C34.90 IVAN (acute kidney injury) N17.9 Hypertension I10 Type 2 diabetes mellitus E11.9 SVT (supraventricular tachycardia) I47.1 Elevated LFTs R79.89 UTI (urinary tract infection) N39.0 Constipation K59.00 (1) Fall Encounter type: initial encounter Qualified Code(s): W19.XXXA - Unspecified fall, initial encounter
[2022-12-28] MEDS: MIRTAZAPINE TAB 15 MG TAB PO SCH (23:29)
[2022-12-28] MEDS: DOCUSATE SODIUM/SENNA 50/8.6MG TAB PO SCH (23:31)
[2022-12-29] MEDS: oxyCODONE HCL IR 5 MG TAB (IMMEDIATE RELEASE) PO PRN ×3 (00:12→13:31)
[2022-12-29] MEDS: HYDROmorphone INJ 0.5 MG/0.5 ML SYR IV PRN ×3 (01:40→19:23)
[2022-12-29] MEDS: LORazepam 2 MG/1 ML VIAL IV PRN ×3 (04:47→22:42)
[2022-12-29] MEDS: ACETAMINOPHEN 325 MG TAB PO SCH ×3 (05:03→18:11)
[2022-12-29] MEDS: CHECK fentaNYL PATCH PLACEMENT SCH ×3 (08:41→22:42)
[2022-12-29] MEDS: dexAMETHasone 1 MG TAB PO SCH ×2 (08:42→20:50)
[2022-12-29] MEDS: busPIRone 5 MG TAB PO SCH ×2 (08:42→20:49)
[2022-12-29] MEDS: PANTOprazole 40 MG TAB PO SCH (08:42)
[2022-12-29] MEDS: HEPARIN 100 UNIT/ML 5ML FLUSH FLUSH PRN ×3 (08:53→15:00)
[2022-12-29] MEDS: DICLOFENAC SOD 1% GEL 100 GM TUBE EXT SCH ×4 (09:28→20:49)
[2022-12-29] MEDS: POLYETHYLENE (MIRALAX) 17 GM PACK PO SCH ×2 (09:29→17:36)
[2022-12-29] MEDS: LORazepam 1 MG TAB PO PRN (18:11)
[2022-12-29] MEDS: DOCUSATE SODIUM/SENNA 50/8.6MG TAB PO SCH (20:50)
[2022-12-29] MEDS: MIRTAZAPINE TAB 15 MG TAB PO SCH (20:50)
--- NOTE | 2022-12-29 23:04 | Hospitalist Progress Note ---
Date of Service December 29, 2022 Assessment & Plan (1) Fall: Plan: -Admit to med/tele -The patient is currently afebrile, hemodynamically stable, and stable on RA -Recently discharged home from [facility] for left hip dislocation, since then she has been experiencing generalized LE weakness and multiple falls while trying to transfer -Family believes she needs placement at this time, PT/OT consults ordered -CT of the head was negative for acute changes compared to her MRI of the brain on 08/23/22 -CT of the abd/pelvis and xray of the hips show Nondisplaced fractures of the left inferior pubic ring and left sacral ala, no acute trauma to the left hip replacement -Chest xray without signs of acute trauma -Will consult orthopedics, bedrest for now -Will continue her home pain regimen including her fentanyl patch, prn oxycodone, and scheduled tylenol -Patient has been more confused the past 2 days, which would make her chances to go to rehab lower. -will check for any metabolic causes of her delirium (2) Hyponatremia: Plan: -Sodium today noted to be 130 -Patient has a recent history of hyponatremia since September of 2022, 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 -Was previously started on 10 mg PO lasix daily with 1500 mL fluid restriction and 1gm NACL tabs HS -Per history, was still taking her lasix and NACL tabs but was not following the 1500 mL fluid restriction, has also been drinking mostly free water -Current hyponatremia is likely multifactorial including her known SIADH, poor oral intake, free water intake and current IVAN (3) Cancer related pain: Plan: -Patient with severe low back pain from her known mets and with known L1 and L4 compression fractures -Continue fentanyl patch and prn Oxycodone as precribed at home, will add on scheduled tylenol -Adjust regimen as needed (4) Small cell lung cancer: Plan: -Patient with known 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, liver, brain, and pelvis -Follows with [facility] oncology but missed her last chemotherapy treatment as she was admitted here for her left hip replacement dislocation -CT of the abd/pelvis today showing progression of her liver mets compared to last CT in October -Alk phos and ALT also increased from last admission -Oncology consult placed, may need to consider a palliative care consult as she has had a severe clinical decline since her diagnosis -Continue allopurinol (5) IVAN (acute kidney injury): Plan: -Patient's Cr today noted to be 0.86 today, baseline appears to be 0.5-0.6 -Likely due to poor oral intake and continued lasix use, she also appears to have a UTI -Ct of the abd/pelvis showing mild pelviectasis without evidence of obstruction -For now will hold lasix and see how her renal function responds -Avoid nephrotoxic agents (6) Hypertension: Plan: -Stable -continue to monitor (7) Type 2 diabetes mellitus: Plan: -Has been off metformin and controlling BSG with diet -Last A1C in September of 2022 was 6.9 -For now will monitor BSG ACHS, will hold lantus for now to avoid hypoglycemia, -Correction factor of 50 with carb ratio of 15 -DM II diet, adjust regimen as needed (8) SVT (supraventricular tachycardia): Plan: -Stable -Continue amiodarone (9) Elevated LFTs: Plan: -See SCLL (10) UTI (urinary tract infection): Plan: -Patient has been experiencing increased urinary frequency -UA today shows trace leukocyte esterase, > 30 WBC's -Last urine culture grew pansensitive e.coli -Patient completed ceftriaxone course. (11) Constipation: Plan: -Patient noted to have a large rectal stool burden without signs of obstruction or stercoral colitis -Will start bowel regimen and order a tap water enema now -Monitor for resolution Admission and Anticipated Discharge Date Admission Date: December 21, 2022 Subjective Patient has been more confused today. Review of Systems Review of Systems: All systems reviewed & are unremarkable except as noted in HPI & below Physical Exam Physical Exam: General-resting comfortably, no fevers, no chills HEENT-head atraumatic and normocephalic, pupils equal and reactive to light, extraocular muscles intact Neck-no lymphadenopathy or thyromegaly, trachea midline Chest-clear to auscultation percussion. No rales wheezing or rhonchi Cardiac-regular rate and rhythm, normal S1 and S2 Abdomen-normal bowel sounds, nontender, no hepatosplenomegaly Extremities-no cyanosis, clubbing, or edema Neuro-cranial nerves II through XII intact, motor and sensory function within normal limits, strength symmetrical , no focal deficits Psych-confused PG Care Time/CCT Total # of Minutes Spent Total Time Spent with Patient: Total time spent is greater than 50% in coordination of care (as documented) at patient's floor/unit and/or counseling patient: Coding Level of Care Code 57234 SUB INP/OBS CARE MIN Diagnoses Fall W19.XXXA Encounter type: initial encounter Hyponatremia E87.1 Cancer related pain G89.3 Small cell lung cancer C34.90 IVAN (acute kidney injury) N17.9 Hypertension I10 Type 2 diabetes mellitus E11.9 SVT (supraventricular tachycardia) I47.1 Elevated LFTs R79.89 UTI (urinary tract infection) N39.0 Constipation K59.00 (1) Fall Encounter type: initial encounter Qualified Code(s): W19.XXXA - Unspecified fall, initial encounter
[2022-12-30] MEDS: ACETAMINOPHEN 325 MG TAB PO SCH ×5 (00:51→23:31)
--- NOTE | 2022-12-30 01:12 | Palliative Care Progress Note ---
Date of Service December 29, 2022 Late entry note for visit done 12/29/22 at 3pm Assessment & Plan (1) Palliative care by specialist: (2) Anxiety: Plan: chronic, seems to be progressing ativan has worked well for her in past, will give a prn dose now and see if more changes are needed spoke with family at length re changes patient's may go through while transitioning to end of life and specifically discussed potential concern for evolution of a terminal delirium and how we would proceed to manage that if it occurs. states he no longer feels pt can engage in any sort of rehab, dtr in agreement. bedside meeting held with pt, family and james galaviz mgt. a dvised we would see how patient is doing tomorrow and reassess, may need snf dc for comfort care vs trial of rehab. advised if delirium worsens/intensifies we will increase mgt of same: if pt becomes agitated and restless, symptoms are suboptimally controlled/PRN's without enough relief. Therefore would schedule dosing of haldol to more aggressively manage and provide relief from terminal agitation/delirium.Delirium is a serious and common complication of the medical care of the seriouslyill and dying pt. It is a much harder road to for patients when it is not controlled.(Florina Hassan, Pelon, et al. Delirium, Confusion, and AgitationMoberly Regional Medical Center Textbook of Palliative Nursing (5 edn), edited by Juanpablo CALLE.[employer],Nov 2018.DOI:10.1093/med/[id number]) (3) Counseling regarding advanced directives and goals of care: Plan: see #2 (4) Cancer related pain: (5) Constipation: (6) Pelvic ring fracture: (7) Falls frequently: (8) Weakness: (9) Lung cancer metastatic to bone: (10) Small cell lung cancer: Plan Focus on delirium mgt and re assess tomorrow. Likelihood for SNF dc decreasing. of note, [facility] continues to say they do not know when they may have a bed open for pt, even under rehab and family does not want another facility. 30min spent face to face with pt and family in discussions re ACP and GOC with progression of decline and intermittent delirium mgt. Updated care mgt, nursing and primary team. Ca Shaw DNP Clinical Director, Palliative Medicine Admission and Anticipated Discharge Date Admission Date: December 21, 2022 Subjective pt's and her dtr came to visit. pt is more restless today and intermittently confused. she has been asking family to talk about family members who before her, maria l her sister. pt tells me her pain is ok but she is anxious, feeling scared and restless. she feels she needs more medication for anxiety and asks if she can have some ativan. she is taking some po today but not her usual Review of Systems Review of Systems: All systems reviewed & are unremarkable except as noted in Subjective Physical Exam Constitutional: + ill appearing, + frail appearing and cooperative Eyes: PERRL, conjunctivae normal, anicteric sclerae ENMT: external ear and nose normal, oropharynx normal Neck: trachea midline, no thyromegaly Respiratory: normal respiratory effort and symmetric chest movement Auscultation: + diminished lung sounds and + rhonchi Cardiovascular: RRR, no murmur, no edema Chest (Breasts): Chest: normal inspection of chest and + vascular access device or port Gastrointestinal (Abdomen): Inspection/Auscultation: abdomen normal to inspection and normal bowel sounds Musculoskeletal: generalized weakness Skin: + turgor decreased, + pallor, + brittle hair, + patchy alopecia and + hair sheds easily Neurologic: awake (intermittent confusion) PG Care Time/CCT Total # of Minutes Spent Total Time Spent: 60 Total Time Spent with Patient: Total time spent is greater than 50% in coordination of care (as documented) at patient's floor/unit and/or counseling patient: Coding [place] [address] SUB INP/OBS CARE 3/50MIN Patient Type Established History Comprehensive Exam Detailed Medical Decision Making High Complexity Diagnoses Palliative care by specialist Z51.5 Anxiety F41.9 Counseling regarding advanced directives and goals of care Z71.89 Cancer related pain G89.3 Constipation K59.00 Pelvic ring fracture S32.810A Falls frequently R29.6 Weakness R53.1 Lung cancer metastatic to bone C34.90; C79.51 Small cell lung cancer C34.90
[2022-12-30] MEDS: HYDROmorphone INJ 0.5 MG/0.5 ML SYR IV PRN ×4 (04:49→20:19)
[2022-12-30] MEDS: LORazepam 2 MG/1 ML VIAL IV PRN ×2 (04:53→17:10)
[2022-12-30] MEDS: oxyCODONE HCL IR 5 MG TAB (IMMEDIATE RELEASE) PO PRN (06:04)
[2022-12-30] MEDS: HEPARIN 100 UNIT/ML 5ML FLUSH FLUSH PRN ×3 (07:56→20:21)
[2022-12-30] MEDS: CHECK fentaNYL PATCH PLACEMENT SCH ×3 (08:18→23:07)
[2022-12-30 08:34] LABS: Hemoglobin 11.1 g/dl (12.0-16.0); Mean Corpuscular Hemoglobin 32.1 pg (25.0-34.0); Mean Corpuscular Hgb Conc 34.7 g/dL (32.0-36.0); Mean Corpuscular Volume 92.5 fL (80.0-100.0); Mean Platelet Volume 8.9 fL (9.4-12.4); Platelet Count 345 K/uL (130-400); RDW Coefficient of Variation 15.3 % (11.5-14.5); RDW Standard Deviation 51.4 fL (36.4-46.3); Red Blood Count 3.46 M/uL (4.20-5.40); White Blood Count 15.28 K/ul (4.8-10.8)
[2022-12-30] MEDS: busPIRone 5 MG TAB PO SCH (08:36)
[2022-12-30] MEDS: dexAMETHasone 1 MG TAB PO SCH (08:36)
[2022-12-30] MEDS: PANTOprazole 40 MG TAB PO SCH (08:37)
[2022-12-30] MEDS: POLYETHYLENE (MIRALAX) 17 GM PACK PO SCH ×2 (08:38→18:03)
[2022-12-30] MEDS: DICLOFENAC SOD 1% GEL 100 GM TUBE EXT SCH ×4 (08:38→20:07)
[2022-12-30 08:50] LABS: BUN Creatinine Ratio 23.8 (10-20); Calcium 8.2 mg/dl (8.5-10.1); Creatinine Clr Calc Pharmacy 98.7 ml/min; Est GFR (Non-African American) 97.5 ml/min; Potassium 3.4 mmol/L (3.5-5.1)
[2022-12-30] MEDS ORDERED: bisacodyL 10 MG SUPP PR STA (14:12)
[2022-12-30] MEDS ORDERED: bisacodyL 10 MG SUPP PR PRN (14:14)
[2022-12-30] MEDS ORDERED: MAGNESIUM HYDROXIDE SUSP 30 ML UDC PO ONE (14:15)
--- NOTE | 2022-12-30 14:39 | Palliative Care Progress Note ---
Date of Service December 30, 2022 Assessment & Plan (1) Palliative care by specialist: (2) Anxiety: Plan: I spoke with pharmacy to review her meds and potential interactions. She has not had much response to buspar and still uses ativan more reliably. I have stopped buspar. I am also stopping remeron and adding melatonin 3mg qhs to assist with sleep for now continue prn ativan (3) Counseling regarding advanced directives and goals of care: Plan: Lore and I spoke about her wishfulness to return home vs SNF. We spoke about whether or not she would have adequate caregiver support, and noted she has been falling every time she returns home. Her is frail as well, her daughter cannot provide 24/7 care and has her own mobility limitations. We spoke about the support assistant present at SNF to assist with her needs and assure safety. She conceded this may be the better path and reaffirmed she only wants to go to [facility] and she is aware they do not have open beds at this time but care t is following. (4) Constipation: Plan: -Patient noted to have a large rectal stool burden without signs of obstruction or stercoral colitis -Will start bowel regimen and order a tap water enema now -Monitor for resolution (5) Cancer related pain: Plan: continue TDF and prn oxy IR, no changes (6) Pelvic ring fracture: (7) Falls frequently: (8) Weakness: (9) Lung cancer metastatic to bone: (10) Small cell lung cancer: Plan: -Patient with known 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, liver, brain, and pelvis -Follows with [facility] [place] but missed her last chemotherapy treatment as she was admitted here for her left hip replacement dislocation -CT of the abd/pelvis today showing progression of her liver mets compared to last CT in October -Alk phos and ALT also increased from last admission -Oncology consult placed, may need to consider a palliative care consult as she has had a severe clinical decline since her diagnosis -Continue allopurinol (11) Fall: Plan: -Admit to med/tele -The patient is currently afebrile, hemodynamically stable, and stable on RA -Recently discharged home from [facility] for left hip dislocation, since then she has been experiencing generalized LE weakness and multiple falls while trying to transfer -Family believes she needs placement at this time, PT/OT consults ordered -CT of the head was negative for acute changes compared to her MRI of the brain on 08/23/22 -CT of the abd/pelvis and xray of the hips show Nondisplaced fractures of the left inferior pubic ring and left sacral ala, no acute trauma to the left hip replacement -Chest xray without signs of acute trauma -Will consult orthopedics, bedrest for now -Will continue her home pain regimen including her fentanyl patch, prn oxycodone, and scheduled tylenol -Patient has been more confused the past 2 days, which would make her chances to go to rehab lower. -will check for any metabolic causes of her delirium (12) Hyponatremia: Plan: -Sodium today noted to be 130 -Patient has a recent history of hyponatremia since September of 2022, 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 -Was previously started on 10 mg PO lasix daily with 1500 mL fluid restriction and 1gm NACL tabs HS -Per history, was still taking her lasix and NACL tabs but was not following the 1500 mL fluid restriction, has also been drinking mostly free water -Current hyponatremia is likely multifactorial including her known SIADH, poor oral intake, free water intake and current IVAN (13) IVAN (acute kidney injury): Plan: -Patient's Cr today noted to be 0.86 today, baseline appears to be 0.5-0.6 -Likely due to poor oral intake and continued lasix use, she also appears to have a UTI -Ct of the abd/pelvis showing mild pelviectasis without evidence of obstruction -For now will hold lasix and see how her renal function responds -Avoid nephrotoxic agents (14) Hypertension: Plan: -Stable -continue to monitor (15) Type 2 diabetes mellitus: Plan: -Has been off metformin and controlling BSG with diet -Last A1C in September of 2022 was 6.9 -For now will monitor BSG ACHS, will hold lantus for now to avoid hypoglycemia, -Correction factor of 50 with carb ratio of 15 -DM II diet, adjust regimen as needed (16) SVT (supraventricular tachycardia): Plan: -Stable -Continue amiodarone (17) Elevated LFTs: Plan: -See SCLL (18) UTI (urinary tract infection): Plan: -Patient has been experiencing increased urinary frequency -UA today shows trace leukocyte esterase, > 30 WBC's -Last urine culture grew pansensitive e.coli -Patient completed ceftriaxone course. Plan Changes to anxiety, insomnia and constipation mgt as outlined above. I called her dtr/POA , Ludmila, and provided update along with the med changes I was making; Ludmila in agreement and verbalized understanding. I have updated nursing and primary team. Ca Shaw DNP Clinical Director, Palliative Medicine Admission and Anticipated Discharge Date Admission Date: December 21, 2022 Subjective Is a bit cantankerous today she offers no complaints or problems she does not want to discuss any of her symptoms does not need adjusting medications. I saw her in the presence of her son Review of Systems Review of Systems: All systems reviewed & are unremarkable except as noted in Subjective Physical Exam Constitutional: + ill appearing, + frail appearing and cooperative Eyes: PERRL, conjunctivae normal, anicteric sclerae ENMT: external ear and nose normal, oropharynx normal Neck: trachea midline, no thyromegaly Respiratory: normal respiratory effort and symmetric chest movement Auscultation: + diminished lung sounds and + rhonchi Cardiovascular: RRR, no murmur, no edema Chest (Breasts): Chest: normal inspection of chest and + vascular access device or port Gastrointestinal (Abdomen): mild tenderness, BS+, non rigid, no guarding Musculoskeletal: generalized weakness Skin: + turgor decreased, + pallor, + brittle hair, + patchy alopecia and + hair sheds easily Neurologic: awake (intermittent confusion) Results & Data Laboratory Results no new data PG Care Time/CCT Total # of Minutes Spent Total Time Spent: 65 Total Time Spent with Patient: Total time spent is greater than 50% in coordination of care (as documented) at patient's floor/unit and/or counseling patient: Coding [place] [address] SUB INP/OBS CARE 3/50MIN Patient Type Established Medical Decision Making High Complexity Diagnoses Palliative care by specialist Z51.5 Anxiety F41.9 Counseling regarding advanced directives and goals of care Z71.89 Constipation K59.00 Cancer related pain G89.3 Pelvic ring fracture S32.810A Falls frequently R29.6 Weakness R53.1 Lung cancer metastatic to bone C34.90; C79.51 Small cell lung cancer C34.90 Fall W19.XXXA Encounter type: initial encounter Hyponatremia E87.1 IVAN (acute kidney injury) N17.9 Hypertension I10 Type 2 diabetes mellitus E11.9 SVT (supraventricular tachycardia) I47.1 Elevated LFTs R79.89 UTI (urinary tract infection) N39.0 (11) Fall Encounter type: initial encounter Qualified Code(s): W19.XXXA - Unspecified fall, initial encounter
[2022-12-30] MEDS: [UNRECOGNIZED DRUG - REMARK] SCH (14:43)
[2022-12-30] MEDS: fentaNYL 75 MCG/HR TDSY TD SCH (14:44)
[2022-12-30] MEDS: LORazepam 1 MG TAB PO PRN (14:53)
--- NOTE | 2022-12-30 16:44 | Hospitalist Progress Note ---
Date of Service December 30, 2022 Assessment & Plan (1) Palliative care by specialist: Plan: CLEMENTINA Pratt did interact with me deformity medication changes directed by palliative care for symptom control of pain constipation and sleep disturbance Chronic cancer related symptoms and treatments, unstable at this time, these include :melatonin for sleep, fentanyl topical plus breakthrough oxycodone and hydromorphone for pain, lorazepam as needed for anxiety, senna and MiraLAX for bowels (2) Constipation: Plan: -Acute on chronic moderate risk patient noted to have a large rectal stool burden without signs of obstruction or stercoral colitis Continues on bowel regiment documented stool production (3) Cancer related pain: Plan: 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 Chronic issue uncontrolled moderate risk Follows with [facility] [place]ology but missed her last chemotherapy treatment as she was admitted here for her left hip replacement dislocation -CT of the abd/pelvis today showing progression of her liver mets compared to last CT in October -Alk phos and ALT also increased from last admission (4) Pelvic ring fracture: Plan: Acute issue moderate risk uncontrolled at this time (5) Fall: Plan: - -Recently discharged home from [facility] for left hip dislocation, since then she has been experiencing generalized LE weakness and multiple falls while trying to transfer -Family believes she needs placement at this time, PT/OT consults ordered -CT of the head was negative for acute changes compared to her MRI of the brain on 08/23/22 -CT of the abd/pelvis and xray of the hips show Nondisplaced fractures of the left inferior pubic ring and left sacral ala, no acute trauma to the left hip replacement -Chest xray without signs of acute trauma - (6) Hyponatremia: Plan: Uncontrolled moderate risk, hyponatremia is likely multifactorial including her known SIADH, poor oral intake, free water intake and IVAN IVAN is resolved Restart sodium tablets (7) Type 2 diabetes mellitus: Plan: Chronic and stable-Has been off metformin and controlling BSG with diet -Last A1C in September of 2022 was 6.9 -For now will monitor BSG ACHS, will hold lantus for now to avoid hypoglycemia, -Correction factor of 50 with carb ratio of 15 -DM II diet, adjust regimen as needed (8) SVT (supraventricular tachycardia): Plan: -Chronic and stable -Continue amiodarone (9) UTI (urinary tract infection): Plan: -Patient has been experiencing increased urinary frequency -UA today shows trace leukocyte esterase, > 30 WBC's -Last urine culture grew pansensitive e.coli -Patient completed ceftriaxone course. Admission and Anticipated Discharge Date Admission Date: December 21, 2022 Subjective Is a bit cantankerous today she offers no complaints or problems she does not want to discuss any of her symptoms does not need adjusting medications. I saw her in the presence of her son Physical Exam Physical Exam: Patient is awake and alert conversant she is almost out alopecic. She denies specific pelvic pain. Card exam is regular lungs are unlabored Results & Data Results & Data Laboratory Results Reviewed CBC Reviewed PRP PG Care Time/CCT Total # of Minutes Spent Total Time Spent with Patient: Total time spent is greater than 50% in coordination of care (as documented) at patient's floor/unit and/or counseling patient: Coding Level of Care Code 55072 SUB INP/OBS CARE 3/50MIN Diagnoses Palliative care by specialist Z51.5 Constipation K59.00 Cancer related pain G89.3 Pelvic ring fracture S32.810A Fall W19.XXXA Encounter type: initial encounter Hyponatremia E87.1 Type 2 diabetes mellitus E11.9 SVT (supraventricular tachycardia) I47.1 UTI (urinary tract infection) N39.0 (5) Fall Encounter type: initial encounter Qualified Code(s): W19.XXXA - Unspecified fall, initial encounter
[2022-12-30] MEDS: SODIUM CHLORIDE 1 GM TABLET PO SCH (20:06)
[2022-12-30] MEDS: MELATONIN 3 MG TAB PO SCH (20:07)
[2022-12-30] MEDS: DOCUSATE SODIUM/SENNA 50/8.6MG TAB PO SCH (20:07)
[2022-12-30] MEDS ORDERED: busPIRone 7.5 MG TAB PO SCH (21:00)
[2022-12-31] MEDS: ACETAMINOPHEN 325 MG TAB PO SCH ×4 (05:08→23:37)
[2022-12-31] MEDS: LORazepam 1 MG TAB PO PRN ×2 (06:23→14:37)
--- NOTE | 2022-12-31 07:55 | Hospitalist Progress Note ---
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 Chronic issue uncontrolled moderate risk Follows with [facility] oncology but missed her last chemotherapy treatment as she was admitted here for her left hip replacement dislocation -CT of the abd/pelvis today showing progression of her liver mets compared to last CT in October -Alk phos and ALT also increased from last admission Palliative care has assisted greatly in manipulating medications and she has better pain control on 12/31/2022 (2) Constipation: Plan: -Acute on chronic moderate risk patient noted to have a large rectal stool burden without signs of obstruction or stercoral colitis Continues on bowel regiment with documented stool production (3) Pelvic ring fracture: Plan: Acute issue moderate risk uncontrolled at this time Strong consideration of this being a pathological fracture (4) Fall: Plan: - -Recently discharged home from [facility] for left hip dislocation, since then she has been experiencing generalized LE weakness and multiple falls while trying to transfer -Family believes she needs placement at this time, PT/OT consults ordered -CT of the head was negative for acute changes compared to her MRI of the brain on 08/23/22 -CT of the abd/pelvis and xray of the hips show Nondisplaced fractures of the left inferior pubic ring and left sacral ala, no acute trauma to the left hip r eplacement -Chest xray without signs of acute trauma - (5) Hyponatremia: Plan: Uncontrolled moderate risk, hyponatremia is likely multifactorial including her known SIADH, poor oral intake, free water intake and IVAN IVAN is resolved Restart sodium tablets sodium has remained low but stable (6) Type 2 diabetes mellitus: Plan: Chronic and stable-Has been off metformin and controlling BSG with diet -Last A1C in September of 2022 was 6.9 -For now will monitor BSG ACHS, will hold lantus for now to avoid hypoglycemia, -Correction factor of 50 with carb ratio of 15 -DM II diet, adjust regimen as needed (7) SVT (supraventricular tachycardia): Plan: -Chronic and stable -Continue amiodarone (8) UTI (urinary tract infection): Plan: -Patient has been experiencing increased urinary frequency -UA today shows trace leukocyte esterase, > 30 WBC's -Last urine culture grew pansensitive e.coli -Patient completed ceftriaxone course. Admission and Anticipated Discharge Date Admission Date: December 21, 2022 Subjective Patient seem to be in better spirits today she overall was dismissive with me during exam she had no focal complaints or concerns were still awaiting placement Physical Exam Physical Exam: Awake alert confused oriented x2 Card exam is regular. No murmurs lungs are clear Abdomen exam is NABS and soft Results & Data Results & Data Vital Signs (Past 12 Hours) Vital Signs Temp Pulse Resp BP Pulse Ox O2 Del Method 12/31/22 07:21 97.3 F L 75 16 131/70 95 Room Air Laboratory Results Reviewed chemistry panel PG Care Time/CCT Total # of Minutes Spent Total Time Spent with Patient: Total time spent is greater than 50% in coordination of care (as documented) at patient's floor/unit and/or counseling patient: Coding Level of Care Code 45053 SUB INP/OBS CARE 2/35MIN Diagnoses Cancer related pain G89.3 Constipation K59.00 Pelvic ring fracture S32.810A Fall W19.XXXA Encounter type: initial encounter Hyponatremia E87.1 Type 2 diabetes mellitus E11.9 SVT (supraventricular tachycardia) I47.1 UTI (urinary tract infection) N39.0 (4) Fall Encounter type: initial encounter Qualified Code(s): W19.XXXA - Unspecified fall, initial encounter
[2022-12-31 08:28] LABS: Calcium 8.2 mg/dl (8.5-10.1); Creatinine Clr Calc Pharmacy 82.9 ml/min; Est GFR (African American) 106.7 ml/min; Est GFR (Non-African American) 92.1 ml/min; Potassium 3.3 mmol/L (3.5-5.1)
[2022-12-31] MEDS: CHECK fentaNYL PATCH PLACEMENT SCH ×3 (09:27→23:49)
[2022-12-31] MEDS: dexAMETHasone 1 MG TAB PO SCH (09:28)
[2022-12-31] MEDS: DOCUSATE SODIUM/SENNA 50/8.6MG TAB PO SCH ×2 (09:29→21:02)
[2022-12-31] MEDS: DICLOFENAC SOD 1% GEL 100 GM TUBE EXT SCH ×4 (09:29→21:03)
[2022-12-31] MEDS: SODIUM CHLORIDE 1 GM TABLET PO SCH ×2 (09:30→21:05)
[2022-12-31] MEDS: oxyCODONE HCL IR 5 MG TAB (IMMEDIATE RELEASE) PO PRN (09:39)
[2022-12-31] MEDS: POLYETHYLENE (MIRALAX) 17 GM PACK PO SCH (09:40)
[2022-12-31] MEDS: LORazepam 2 MG/1 ML VIAL IV PRN (11:30)
[2022-12-31] MEDS: HEPARIN 100 UNIT/ML 5ML FLUSH FLUSH PRN (11:33)
[2022-12-31] MEDS: PANTOprazole 40 MG TAB PO SCH (13:33)
--- NOTE | 2022-12-31 15:19 | XRay Report ---
KUB HISTORY: Acute generalized abdominal pain with constipation CONSTIPATION COMPARISON: CT abdomen and pelvis 12/21/2022 FINDINGS: Monitoring about gas pattern. Surgical clips within the abdominal right upper quadrant. Mod erate to extensive fecal retention of the rectum and left hemicolon is similar to the prior study. Ca lcified fibroid uterus. No renal calculi. No ureteral calculi. No pneumoperitoneum or pneumatosis. L eft hip arthroplasty. Skeletal metastasis redemonstrated. Left inferior pubic ramus and left sacral f ractures are poorly visualized. IMPRESSION: 1. Moderate to extensive fecal retention within the rectum and left hemicolon. 2. Nonobstructive bowel gas pattern. 3. Skeletal metastasis are better evaluated on the comparison CT exams. ACT 112: Negative or not required by law. The above report was generated using voice recognition software. It may contain grammatical, syntax o r spelling errors. Electronically signed by: Damion Kelly M.D. 12/31/2022 3:17 PM
--- NOTE | 2022-12-31 16:29 | Palliative Care Progress Note ---
Date of Service December 31, 2022 Assessment & Plan (1) Palliative care by specialist: (2) Anxiety: (3) Constipation: Plan: responding to therapy (4) Cancer related pain: Plan: continue current regimen (5) Pelvic ring fracture: (6) Falls frequently: (7) Weakness: (8) Lung cancer metastatic to bone: (9) Small cell lung cancer: (10) Fall: (11) Hyponatremia: (12) IVAN (acute kidney injury): (13) Hypertension: (14) Type 2 diabetes mellitus: (15) SVT (supraventricular tachycardia): (16) Elevated LFTs: (17) UTI (urinary tract infection): Plan Patient is responding to constipation therapies with some bowel movements. For now we will continue along the current plan with no further changes and reassess on Tuesday. Flatplate of the abdomen is pending. Admission and Anticipated Discharge Date Admission Date: December 21, 2022 Subjective Lore is feeling about the same, although she has been having some bowel movements. She does feel like something is starting to move its way along in her colon. She denies nausea or vomiting. Review of Systems Review of Systems: All systems reviewed & are unremarkable except as noted in Subjective Physical Exam Constitutional: + ill appearing, + frail appearing and cooperative Eyes: PERRL, conjunctivae normal, anicteric sclerae ENMT: external ear and nose normal, oropharynx normal Neck: trachea midline, no thyromegaly Respiratory: normal respiratory effort and symmetric chest movement Auscultation: + diminished lung sounds and + rhonchi Cardiovascular: RRR, no murmur, no edema Chest (Breasts): Chest: normal inspection of chest and + vascular access device or port Gastrointestinal (Abdomen): mild tenderness, BS+, non rigid, no guarding Musculoskeletal: generalized weakness Skin: + turgor decreased, + pallor, + brittle hair, + patchy alopecia and + hair sheds easily Neurologic: awake (intermittent confusion) Results & Data Vital Signs (Past 12 Hours) Vital Signs Temp Pulse Resp BP Pulse Ox O2 Del Method 12/31/22 07:21 36.3 C L 75 16 131/70 95 Room Air PG Care Time/CCT Total # of Minutes Spent Total Time Spent: 45 Total Time Spent with Patient: Total time spent is greater than 50% in coordination of care (as documented) at patient's floor/unit and/or counseling patient: Coding [place] [address] SUB INP/OBS CARE 50MIN Patient Type Established History Detailed Exam Comprehensive Medical Decision Making Moderate Complexity Diagnoses Palliative care by specialist Z51.5 Anxiety F41.9 Constipation K59.00 Cancer related pain G89.3 Pelvic ring fracture S32.810A Falls frequently R29.6 Weakness R53.1 Lung cancer metastatic to bone C34.90; C79.51 Small cell lung cancer C34.90 Fall W19.XXXA Encounter type: initial encounter Hyponatremia E87.1 IVAN (acute kidney injury) N17.9 Hypertension I10 Type 2 diabetes mellitus E11.9 SVT (supraventricular tachycardia) I47.1 Elevated LFTs R79.89 UTI (urinary tract infection) N39.0 (10) Fall Encounter type: initial encounter Qualified Code(s): W19.XXXA - Unspecified fall, initial encounter
[2022-12-31] MEDS: MAGNESIUM HYDROXIDE SUSP 30 ML UDC PO SCH (18:52)
[2022-12-31] MEDS: MELATONIN 3 MG TAB PO SCH (21:01)
[2022-12-31] MEDS: POTASSIUM CHLORIDE CRTAB 20 MEQ TABCR PO SCH (21:02)
[2023-01-01] MEDS: ACETAMINOPHEN 325 MG TAB PO SCH ×4 (05:37→23:50)
[2023-01-01 07:35] LABS: BUN Creatinine Ratio 26.5 (10-20); Creatinine Clr Calc Pharmacy 84.6 ml/min; Est GFR (African American) 107.4 ml/min; Est GFR (Non-African American) 92.7 ml/min; Potassium 3.2 mmol/L (3.5-5.1)
[2023-01-01] MEDS ORDERED: MAGNESIUM SULFATE / D5W 1 GM/100 ML BAG IV ONE (08:30)
[2023-01-01] MEDS: oxyCODONE HCL IR 5 MG TAB (IMMEDIATE RELEASE) PO PRN ×3 (08:36→23:03)
[2023-01-01] MEDS: CHECK fentaNYL PATCH PLACEMENT SCH ×3 (08:36→23:52)
[2023-01-01] MEDS: DICLOFENAC SOD 1% GEL 100 GM TUBE EXT SCH ×4 (09:38→20:01)
[2023-01-01] MEDS: dexAMETHasone 1 MG TAB PO SCH (09:38)
[2023-01-01] MEDS: DOCUSATE SODIUM/SENNA 50/8.6MG TAB PO SCH ×2 (09:38→20:01)
[2023-01-01] MEDS: MAGNESIUM HYDROXIDE SUSP 30 ML UDC PO SCH (09:39)
[2023-01-01] MEDS: PANTOprazole 40 MG TAB PO SCH (09:39)
[2023-01-01] MEDS: SODIUM CHLORIDE 1 GM TABLET PO SCH ×3 (09:39→20:01)
[2023-01-01] MEDS: POLYETHYLENE (MIRALAX) 17 GM PACK PO SCH ×2 (09:39→20:01)
[2023-01-01] MEDS: POTASSIUM CHLORIDE CRTAB 20 MEQ TABCR PO SCH ×2 (09:39→20:02)
[2023-01-01] MEDS: HEPARIN 100 UNIT/ML 5ML FLUSH FLUSH PRN (10:43)
--- NOTE | 2023-01-01 12:30 | Hospitalist Progress Note ---
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 Chronic issue uncontrolled moderate risk Follows with [facility] [place] oncology but missed her last chemotherapy treatment as she was admitted here for her left hip replacement dislocation -CT of the abd/pelvis 12/21/2022 showing progression of her liver mets compared to last CT in October -Alk phos and ALT also increased from last admission Palliative care has assisted greatly in manipulating medications and she has better pain control on 12/31/2022 (2) Constipation: Plan: -Acute on chronic moderate risk additional cathartic medications added 01/01/2023 patient noted to have a large rectal stool burden without signs of obstruction or stercoral colitis (3) Pelvic ring fracture: Plan: Acute issue moderate risk pain is much better controlled at this time Strong consideration of this being a pathological fracture (4) Fall: Plan: - -Recently discharged home from [facility] for left hip dislocation, since then she has been experiencing generalized LE weakness and multiple falls while trying to transfer -Family believes she needs placement at this time -CT of the head was negative for acute changes compared to her MRI of the brain on 08/23/22 -CT of the abd/pelvis and xray of the hips show Nondisplaced fractures of the left inferior pubic ring and left sacral ala, no acute trauma to the left hip replacement -Chest xray without signs of acute trauma - (5) Hyponatremia: Plan: Uncontrolled moderate risk, hyponatremia is likely multifactorial including her known SIADH, poor oral intake, free water intake and IVAN IVAN is resolved Restart sodium tablets sodium has remained low but stable (6) Type 2 diabetes mellitus: Plan: Chronic and stable-Has been off metformin and controlling BSG with diet -Last A1C in September of 2022 was 6.9 -For now will monitor BSG ACHS, will hold lantus for now to avoid hypoglycemia, -Correction factor of 50 with carb ratio of 15 -DM II diet, adjust regimen as needed (7) SVT (supraventricular tachycardia): Plan: -Chronic and stable -Continue amiodarone (8) UTI (urinary tract infection): Plan: -Patient has been experiencing increased urinary frequency -UA today shows trace leukocyte esterase, > 30 WBC's -Last urine culture grew pansensitive e.coli -Patient completed ceftriaxone course. Admission and Anticipated Discharge Date Admission Date: December 21, 2022 Subjective Patient seem to be in better spirits today initially some improvement with her cathartic regimen for bowel habits is now once again become an issue will increase some of her medications on 01/01/2023. we are still awaiting placement Physical Exam Physical Exam: Awake and alert no immediate distress. Abdomen is with NABS soft nontender nondistended PG Care Time/CCT Total # of Minutes Spent Total Time Spent with Patient: Total time spent is greater than 50% in coordination of care (as documented) at patient's floor/unit and/or counseling patient: Coding Level of Care Code 01841 SUB INP/OBS CARE 2/35MIN Diagnoses Cancer related pain G89.3 Constipation K59.00 Pelvic ring fracture S32.810A Fall W19.XXXA Encounter type: initial encounter Hyponatremia E87.1 Type 2 diabetes mellitus E11.9 SVT (supraventricular tachycardia) I47.1 UTI (urinary tract infection) N39.0 (4) Fall Encounter type: initial encounter Qualified Code(s): W19.XXXA - Unspecified fall, initial encounter
[2023-01-01] MEDS: ONDANSETRON INJ 2 MG/ML 2 ML VIAL IV PRN ×2 (18:16→23:03)
[2023-01-01] MEDS: LORazepam 1 MG TAB PO PRN ×2 (19:15→23:03)
[2023-01-01] MEDS: HYDROmorphone INJ 0.5 MG/0.5 ML SYR IV PRN (19:15)
[2023-01-01] MEDS: MELATONIN 3 MG TAB PO SCH (20:02)
[2023-01-02] MEDS: oxyCODONE HCL IR 5 MG TAB (IMMEDIATE RELEASE) PO PRN ×2 (04:46→10:18)
[2023-01-02] MEDS: LORazepam 1 MG TAB PO PRN ×2 (04:47→13:21)
[2023-01-02] MEDS: ACETAMINOPHEN 325 MG TAB PO SCH ×5 (05:49→23:16)
[2023-01-02 06:32] LABS: Calcium 8.2 mg/dl (8.5-10.1); Creatinine Clr Calc Pharmacy 71.5 ml/min; Est GFR (African American) 101.6 ml/min; Est GFR (Non-African American) 87.7 ml/min; Magnesium 2.9 mg/dl (1.7-2.4); Potassium 3.8 mmol/L (3.5-5.1)
[2023-01-02] MEDS: CHECK fentaNYL PATCH PLACEMENT SCH ×3 (08:58→23:17)
[2023-01-02] MEDS: POLYETHYLENE (MIRALAX) 17 GM PACK PO SCH ×2 (08:59→21:43)
[2023-01-02] MEDS: DOCUSATE SODIUM/SENNA 50/8.6MG TAB PO SCH ×2 (08:59→21:43)
[2023-01-02] MEDS: DICLOFENAC SOD 1% GEL 100 GM TUBE EXT SCH ×4 (08:59→21:42)
[2023-01-02] MEDS: MAGNESIUM HYDROXIDE SUSP 30 ML UDC PO SCH (08:59)
[2023-01-02] MEDS: POTASSIUM CHLORIDE CRTAB 20 MEQ TABCR PO SCH ×2 (09:00→21:44)
[2023-01-02] MEDS: PANTOprazole 40 MG TAB PO SCH (09:00)
[2023-01-02] MEDS: SODIUM CHLORIDE 1 GM TABLET PO SCH ×3 (09:00→21:44)
[2023-01-02] MEDS: dexAMETHasone 1 MG TAB PO SCH (09:00)
[2023-01-02] MEDS: UREA (UREA-NA) 15 GM PACK PO SCH ×2 (10:16→21:45)
[2023-01-02] MEDS: fentaNYL 75 MCG/HR TDSY TD SCH (12:13)
--- NOTE | 2023-01-02 12:16 | Hospitalist Progress Note ---
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 Chronic issue uncontrolled moderate risk Follows with [facility] oncology but missed her last chemotherapy treatment as she was admitted here for her left hip replacement dislocation -CT of the abd/pelvis 12/21/2022 showing progression of her liver mets compared to last CT in October -Alk phos and ALT also increased from last admission Palliative care has assisted greatly in manipulating medications and she has better pain control on 12/31/2022 Increase fentanyl patch to 100 mcg on 01/02/2023 (2) Constipation: Plan: -Acute on chronic moderate risk additional cathartic medications added 01/01/2023 good result so far patient noted to have a large rectal stool burden without signs of obstruction or stercoral colitis (3) Pelvic ring fracture: Plan: Acute issue moderate risk pain is much better controlled at this time Strong consideration of this being a pathological fracture (4) Fall: Plan: - -Recently discharged home from [facility] for left hip dislocation, since then she has been experiencing generalized LE weakness and multiple falls while trying to transfer -Family believes she needs placement at this time -CT of the head was negative for acute changes compared to her MRI of the brain on 08/23/22 -CT of the abd/pelvis and xray of the hips show Nondisplaced fractures of the left inferior pubic ring and left sacral ala, no acute trauma to the left hip replacement -Chest xray without signs of acute trauma - (5) Hyponatremia: Plan: Uncontrolled moderate risk, hyponatremia is likely multifactorial including her known SIADH, poor oral intake, free water intake and IVAN IVAN is resolved Restart sodium tablets sodium has remained low but stable (6) Type 2 diabetes mellitus: Plan: Chronic and stable-Has been off metformin and controlling BSG with diet -Last A1C in September of 2022 was 6.9 -For now will monitor BSG ACHS, will hold lantus for now to avoid hypoglycemia, -Correction factor of 50 with carb ratio of 15 -DM II diet, adjust regimen as needed (7) SVT (supraventricular tachycardia): Plan: -Chronic and stable -Continue amiodarone (8) UTI (urinary tract infection): Plan: -Patient has been experiencing increased urinary frequency -UA today shows trace leukocyte esterase, > 30 WBC's -Last urine culture grew pansensitive e.coli -Patient completed ceftriaxone course. Admission and Anticipated Discharge Date Admission Date: December 21, 2022 Subjective Patient's pain is suboptimally controlled today we are increasing her fentanyl patch. She still has breakthrough oxycodone. Her bowels have been moving according to nursing staff. Still awaiting placement. Physical Exam Physical Exam: Awake and alert biggest complaints is pain mostly abdominal and pelvic pain. Cardiac exam is regular lungs are clear and unlabored Results & Data Results & Data Vital Signs (Past 12 Hours) Vital Signs O2 Del Method 01/02/23 09:00 Room Air Laboratory Results Reviewed PRP Reviewed magnesium PG Care Time/CCT Total # of Minutes Spent Total Time Spent with Patient: Total time spent is greater than 50% in coordination of care (as documented) at patient's floor/unit and/or counseling patient: Coding Level of Care Code 24346 SUB INP/OBS CARE 2/35MIN Diagnoses Cancer related pain G89.3 Constipation K59.00 Pelvic ring fracture S32.810A Fall W19.XXXA Encounter type: initial encounter Hyponatremia E87.1 Type 2 diabetes mellitus E11.9 SVT (supraventricular tachycardia) I47.1 UTI (urinary tract infection) N39.0 (4) Fall Encounter type: initial encounter Qualified Code(s): W19.XXXA - Unspecified fall, initial encounter
[2023-01-02] MEDS: [UNRECOGNIZED DRUG - REMARK] SCH (12:45)
[2023-01-02] MEDS ORDERED: fentaNYL 100 MCG/HR TDSY TD SCH (13:00)
[2023-01-02] MEDS ORDERED: UREA (UREA-NA) 15 GM PACK PO SCH (21:00)
[2023-01-02] MEDS: MELATONIN 3 MG TAB PO SCH (21:43)
[2023-01-03] MEDS: HYDROmorphone INJ 0.5 MG/0.5 ML SYR IV PRN (01:03)
[2023-01-03] MEDS ORDERED: GLYCOPYRROLATE 0.2 MG/ML VIAL IV PRN (01:14)
[2023-01-03] MEDS: HEPARIN 100 UNIT/ML 5ML FLUSH FLUSH PRN (02:27)
[2023-01-03] MEDS: ACETAMINOPHEN 325 MG TAB PO SCH (06:12)
--- NOTE | 2023-01-03 06:34 | Death Pronouncement Note ---
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 Chronic issue uncontrolled moderate risk Follows with [facility] oncology but missed her last chemotherapy treatment as she was admitted here for her left hip replacement dislocation -CT of the abd/pelvis 12/21/2022 showing progression of her liver mets compared to last CT in October -Alk phos and ALT also increased from last admission Palliative care has assisted greatly in manipulating medications and she has better pain control on 12/31/2022 Increase fentanyl patch to 100 mcg on 01/02/2023 (2) Constipation: Plan: -Acute on chronic moderate risk additional cathartic medications added 01/01/2023 good result so far patient noted to have a large rectal stool burden without signs of obstruction or stercoral colitis (3) Pelvic ring fracture: Plan: Acute issue moderate risk pain is much better controlled at this time Strong consideration of this being a pathological fracture (4) Fall: Plan: - -Recently discharged home from [facility] for left hip dislocation, since then she has been experiencing generalized LE weakness and multiple falls while trying to transfer -Family believes she needs placement at this time -CT of the head was negative for acute changes compared to her MRI of the brain on 08/23/22 -CT of the abd/pelvis and xray of the hips show Nondisplaced fractures of the left inferior pubic ring and left sacral ala, no acute trauma to the left hip replacement -Chest xray without signs of acute trauma (5) Hyponatremia: Plan: Uncontrolled moderate risk, hyponatremia is likely multifactorial including her known SIADH, poor oral intake, free water intake and IVAN IVAN is resolved Restart sodium tablets sodium has remained low but stable (6) Type 2 diabetes mellitus: Plan: Chronic and stable-Has been off metformin and controlling BSG with diet -Last A1C in September of 2022 was 6.9 -For now will monitor BSG ACHS, will hold lantus for now to avoid hypoglycemia, -Correction factor of 50 with carb ratio of 15 -DM II diet, adjust regimen as needed (7) SVT (supraventricular tachycardia): Plan: -Chronic and stable -Continue amiodarone (8) UTI (urinary tract infection): Plan: -Patient has been experiencing increased urinary frequency -UA today shows trace leukocyte esterase, > 30 WBC's -Last urine culture grew pansensitive e.coli -Patient completed ceftriaxone course. Additional Data Confirmation of : no pulse, no respirations, no heart sounds and pupils fixed and dilated Attending physician: Mike Henderson MD
--- NOTE | 2023-01-03 07:15 | Discharge Summary ---
Date of Service January 03, 2023 Admission HPI Per Admitting Provider Lore is a 77yo female with a history of small cell lung cancer with mets to the brain, spine, and hips S/P palliative radiation therapy and currently receiving chemotherapy and [place] with [facility] [place], SVT, HTN, HLD, T2DM (diet controlled), Hyponatremia 2/2 SIADH, OA, and MARI who presented to the [facility] ED on 12/21/22 due to generalized weakness, dizziness, and multiple falls at home. Per chart review, the patient has had multiple admissions over the past 2 months due to recently diagnosed small cell lung cancer with mets to the spine and hips. She underwent left hemiarthroplasty performed on 10/29/2021 and was discharged to [facility]. She experienced a fall off of the toilet while at [facility] and sustained a dislocation of the replaced left hip. She underwent closed reduction under anesthesia on 11/[address] Flores. She was treated for a possible UTI during this admission with 5 days of Cefdinir as she had previously been on Doxycycline but was not improving. She was noted to be hyponatremic with sodium levels between 127-131. This was thought to be caused from SIADH due to her known cancer; she was treated with a 1500 mL fluid restriction and started on 10 mg PO lasix daily. She was again discharged to [facility] and was reportedly discharged home with health services approximately 1 week ago. In the ED today the patient was found to be afebrile, hemodynamically stable, and stable on RA. Labs were remarkable for a CBC with WBC WNL, stable Hgb at 10.5, platelet count of 412, Cr of 0.86 (baseline appears to be approximately 0.50), sodium of 1330 with a glucose of 86, chloride of 95 otherwise stable electrolytes, AST of 49 (up from 41 as of 12/01/22), alk phos of 338 (up from 221 as of 12/01/22), and covid [address] of the head was read as "A few calvarial lesions are seen. Previously noted enhancing foci are not well seen on today's exam.". CT of the abdomen/pelvis with IV contrast was read as "1. Numerous hepatic masses and ill-defined osteoblastic lesions with pathologic fractures are again seen. 2. No acute abnormality is seen to explain lower abdominal pain. There is a large rectal stool ball without evidence of inspissation or wall thickening to suggest stercoral colitis.3. Cholelithiasis without cholecystitis."xray of the chest was read as "1. Cardiomegaly and emphysema. 2. There is complete atelectasis of the right upper lobe which is new from previous. 3. A right upper lobe mass lesion is likely unchanged. This is not well assessed due to right upper lobe atelectasis. 4. Additional findings as above. XR of the left hip was read as "1. Nondisplaced fracture of the left sacral ala. 2. Nondisplaced fracture of the left inferior pubic ring. 3. A left hip arthroplasty is in near anatomic alignment.". Prior to admission the patient was given 500 mL NSS and 1,000 mg PO Acetaminophen. At the time of the exam the patient was lying in bed in discomfort due to her low back and pelvic pain but no acute distress with her daughter sitting bedsid e, history was obtained from both. Her daughter states that the patient was initially doing well after discharge from [facility] last week but has had progressive generalized weakness and multiple falls. They explain that on discharge from [facility] she was able to stand from sitting with the assistance of a walker and ambulate with a walker. Over the weekend the patient experienced her first fall when she was trying to transition to a chair. She slipped and landed on her buttocks, EMS was called to help her up. Her daughter states that the patient was only down for approximately 20 min max. The patient states that she experienced worsening low back and pelvis pain after the initial fall. Since then she has had 3 episodes where she had to slide to the ground landing on her buttocks due to generalized weakness. She did not hit her head or lose consciousness after all of her falls. Her appetite has not been very good recently, she will usually eat 2 meals daily but usually they are small. Her daughter states that the patient frequently sips water due to thirst. The patient feels as though she is constipated but has been having small and frequent episodes of non-bloody diarrhea. She denies dysuria and hematuria but has been experiencing increased urinary frequency like her previous UTIs. Her daughter notes small sacral skin breakdowns and a left heel ulcer. The patient missed her last chemotherapy session as she was hospitalized and they have been unable to see her Oncologist since. They are in agreement with rehab due to her increased ADL's requirements at this time. They deny recent fevers, chills, headache, changes in vision, hearing, taste, and smell, chest pain, SOB, nausea, vomiting, dysuria, hematuria, lower extremity swelling. We discussed code status, the patient is a DNR/DNI and her daughter would make medical decisions for her if she could not make them herself. Please refer to Dr. Wynne's attetsation for any changes to the treatment plan Principal Diagnosis 62101/03/23 cause of is metastatic small cell lung cancer Discharge Exam pt was pronounced by night call physician Discharge Data Allergies Allergy/AdvReac Type Severity Reaction Status Date / Time No Known Allergies Allergy Verified 12/21/22 15:19 Consultations 12/21/22 17:47 Consult Oncology Routine 12/21/22 17:51 Consult Orthopedic Surgery Routine 12/22/22 09:12 Consult Palliative Care Routine 12/22/22 11:03 Consult Radiation Oncology Routine Ordered Studies 12/21/22 14:11 CT Abd and Pelvis [CT abd pelvis IV con only] Stat CT head/brain wo con Stat 12/23/22 07:36 CT guide rad therapy pelvis Routine Hospital Course (1) : Pt [place] [address]01/03/23 cuase of is metastatic small cell lung cancer (2) Cancer related pain: 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 Chronic issue uncontrolled moderate risk Follows [place] [facility] [place] but missed her last chemotherapy treatment as she was admitted here for her left hip replacement dislocation -CT of the abd/pelvis 12/21/2022 showing progression of her liver mets compared to last CT in October -Alk phos and ALT also increased from last admission Palliative care has assisted greatly in manipulating medications and she has better pain control on 12/31/2022 Increase fentanyl patch to 100 mcg on 01/02/2023 (3) Constipation: -Acute on chronic moderate risk additional cathartic medications added 01/01/2023 good result so far patient noted to have a large rectal stool burden without signs of obstruction or stercoral colitis (4) Pelvic ring fracture: Acute issue moderate risk pain is much better controlled at this time Strong consideration of this being a pathological fracture (5) Fall: - -Recently discharged home from [facility] for left hip dislocation, since then she has been experiencing generalized LE weakness and multiple falls while trying to transfer -Family believes she needs placement at this time -CT of the head was negative for acute changes compared to her MRI of the brain on 08/23/22 -CT of the abd/pelvis and xray of the hips show Nondisplaced fractures of the left inferior pubic ring and left sacral ala, no acute trauma to the left hip replacement -Chest xray without signs of acute trauma - (6) Hyponatremia: Uncontrolled moderate risk, hyponatremia is likely multifactorial including her known SIADH, poor oral intake, free water intake and IVAN IVAN is resolved Restart sodium tablets sodium has remained low but stable (7) Type 2 diabetes mellitus: Chronic and stable-Has been off metformin and controlling BSG with diet -Last A1C in September of 2022 was 6.9 (8) SVT (supraventricular tachycardia): -Chronic and stable -Continue amiodarone (9) UTI (urinary tract infection): -Patient has been experiencing increased urinary frequency - -Last urine culture grew pansensitive e.coli -Patient completed ceftriaxone course. Total Time Total Time Spent Total Time Spent (In Minutes): less than 30 minutes required to prepare r Discharge Plan Discharge Items Patient Disposition: Reason For Visit: ABD PAIN Discharge Diagnosis: metastatic small cell lung cancer Condition on Discharge: Good Activity: Per Instructions section Follow-up/Referrals: Delbert Miramontes MD [Primary Care Provider] - Toy Flores MD [Physician] - 01/13/23 3:00 pm Addtl Daycare Director Provider Instructions: Left pubic rami fracture and sacral ala fx - nondisplaced history of recent left hip gino/subsequent dislocation PT/OT needs knee immobilizer on left leg when out of bed for transfers/ambulation walker to assist with ambulation posterior hip precautions at all times WBAT Standard pillow between legs when in bed Follow up with Dr. Flores as scheduled on 01/13 at 3:00 p.m. Medications and DC Order Prescriptions: No Action furosemide [Lasix] 20 mg tablet 10 mg PO QAM omeprazole 20 mg capsule,delayed release(DR/EC) 20 mg PO QAM Qty: 90 3RF amiodarone 200 mg Tablet 200 mg PO BID Qty: 60 2RF allopurinol 300 mg Tablet 300 mg PO HS Qty: 30 5RF levalbuterol tartrate [Xopenex HFA] 45 mcg/actuation Hfa Aerosol Inhaler 2 puff inhalation Q6H PRN (Reason: cough/wheeze/shortness of breath) Qty: 1 0RF Rx Instructions: use with spacer device potassium chloride 10 mEq Tablet,Er Particles/Crystals 10 meq PO BID Qty: 30 0RF calcium carbonate [Calcium Antacid] 200 mg calcium (500 mg) Tablet,Chewable 1,000 mg PO Q6H PRN (Reason: Gi Upset) ondansetron 4 mg Tablet,Disintegrating 4 mg PO Q6H PRN (Reason: Nausea) buspirone 5 mg tablet 5 mg PO BID polysaccharide iron complex [Ferrex 150] 150 mg iron Capsule 150 mg PO DAILY mirtazapine 15 mg tablet 15 mg PO HS polyethylene glycol 3350 [Miralax] 17 gram/dose Powder 17 g PO DAILY PRN (Reason: Constipation) Rx Instructions: 17 gm by mouth as needed...mix with 8 oz of fluid of choice acetaminophen [Tylenol] 325 mg Tablet 650 mg PO Q6 MDD 3g PRN (Reason: Fever) ascorbic acid (vitamin C) [Vitamin C] 500 mg Tablet 1,000 mg PO DAILY diclofenac sodium 1 % Gel 2 g TOPICAL BID PRN (Reason: Pain) Rx Instructions: apply to bilateral knees and lower back every day and evening shift sennosides-docusate sodium [Senokot-S] 8.6-50 mg Tablet 1 tab PO HS Qty: 30 0RF magnesium oxide 400 mg (241.3 mg magnesium) Tablet 400 mg PO QAM Qty: 30 0RF lorazepam [Ativan] 0.5 mg tablet 0.5 mg PO Q6 PRN (Reason: Anxiety) Qty: 10 0RF oxycodone 5 mg tablet 5 mg PO Q4H PRN (Reason: Pain (Scale score 5-10)) Qty: 10 0RF fentanyl 50 mcg/hr patch 72 hour 50 mcg topical Q72H sodium chloride 1,000 mg Tablet,Soluble 1,000 mg PO DAILY metformin 500 mg tablet extended release 24 hr 500 mg PO BID Admission Data Admit Date/Time: 12/21/22 17:50 Attending Provider: Mike Henderson Admit Provider: Delbert Wynne Primary Care Provider: Delbert Miramontes Other Providers: [place] [place] ; Stefanie Goel ; Ana Romero ; Delbert Rodriguez ; Sampson Hogan Coding Level of Care Code 28182 IN/OBS DISCH 30 MIN/LESS Diagnoses R99 Cancer related pain G89.3 Constipation K59.00 Pelvic ring fracture S32.810A Fall W19.XXXA Encounter type: initial encounter Hyponatremia E87.1 Type 2 diabetes mellitus E11.9 SVT (supraventricular tachycardia) I47.1 UTI (urinary tract infection) N39.0
== END 2023-01-03 08:31 | disposition expired | DRG 542 ==
LOC: ED 13:27 → 2W 17:50 → SUATTDRO 17:50 → 2W 20:02 → 3W 12-22 17:11